=== PATIENT | female | born 1940 | race Caucasian/White ===

== ENCOUNTER → 2018-09-24 16:07 | Outpatient (CLI) | payer OTHER, SELFPAY ==
--- NOTE | 2018-09-24 | DI.RAD.S_ITS ---
PROCEDURE: XR HIP W PEL IF DONE RT 2V INDICATIONS: LUMBOSACRAL PAIN RIGHT HIP PAIN TECHNIQUE: AP pelvis with lateral view(s) of the right hip(s). COMPARISON: [facility], , [id number] W PEL IF PERFORMED, 04/26/2017, 11:42. FINDINGS: Bones: No fractures or dislocations. Pelvic ring appears intact. No suspicious bony lesions. There is mild bilateral hip joint space narrowing. Soft tissues: The visualized bowel gas pattern is normal. No suspicious soft tissue calcifications. Dense atheromatous calcifications are present within the iliac arteries. IMPRESSION: 1. Mild bilateral hip osteoarthritis. 2. Arterial atherosclerosis. Dictated by: Delilah Garcia M.D. on 09/24/2018 at 16:51 Approved by: Delilah Garcia M.D. on 09/24/2018 at 16:53
--- NOTE | 2018-09-24 | DI.RAD.S_ITS ---
PROCEDURE: XR LUMBAR SPINE 2-3V INDICATIONS: LUMBOSACRAL PAIN/RIGHT HIP PAIN TECHNIQUE: 3 views of the lumbar spine were acquired. COMPARISON: [facility], , -SPINE 2-3 VIEWS, 03/30/2011, 16:04. FINDINGS: Bones: 5 [id number] vertebrae are present. There is loss of the expected lumbar lordosis. No spondylolisthesis. No wedge compression deformities. Moderate to severe degenerative changes present within the mid and lower lumbar spine including intervertebral disc space narrowing, endplate sclerosis, osteophytosis, and facet sclerosis. Soft tissues: Overlying bowel gas pattern is normal. Dense atheromatous calcifications are present within the abdominal aorta and iliac arteries. IMPRESSION: 1. Moderate to severe degenerative change of the lumbar spine. 2. Arterial atherosclerosis. Dictated by: Delilah Garcia M.D. on 09/24/2018 at 16:53 Approved by: Deillah Garcia M.D. on 09/24/2018 at 16:54
== END ==
PROVIDERS: Family Provider Family Medicine; PCP Family Medicine; Visit Provider Family Medicine
DX: M25.551 Pain in right hip (principal); M54.5 Low back pain; M16.0 Bilateral primary osteoarthritis of hip; M47.816 Spondylosis without myelopathy or radiculopathy, lumbar region; I70.8 Atherosclerosis of other arteries; I70.0 Atherosclerosis of aorta
CPT/HCPCS: 72100; 73502

== ENCOUNTER → 2018-11-15 14:42 | Outpatient (CLI) | payer OTHER, SELFPAY ==
--- NOTE | 2018-11-15 | DI.CT.S_ITS ---
PROCEDURE: CT LUMBAR SPINE WO CON INDICATIONS: Lumbar spine pain TECHNIQUE: Noncontrast 3 mm thick sections acquired from the T12 level to the sacrum. Sagittal and coronal reformats were constructed. For radiation dose reduction, the following was used: automated exposure control. COMPARISON: [facility], CR, XR LUMBAR SPINE 2-3V, 09/24/2018, 16:25. [facility], MR, LUMBAR SPINE W/O CONTRAST, 06/09/2014, 14:51. FINDINGS: Image quality: Excellent. Bones: There is mildly dextroscoliotic bony alignment centered at the L3-L4 level of the lumbosacral spine, slightly more prominent than seen on plain film and MR scanning from. No acute vertebral body compression fractures. No suspicious lytic or blastic bony lesions. Central spinal caliber is of normal overall caliber. No pars defects. T12-L1: Mild degenerative disc height reduction, no disc bulge or herniation suspected. L1-L2: Mild/moderate degenerative discogenic reduction without visualized disc bulge or herniation. A small inferior endplate Schmorl's node at L1 was previously present on MR scanning and showed no inflammatory associated change at that time (May L2-L3: Moderately severe degenerative disc disease with significant disc height reduction but no visualized disc herniation. There is a slight posterior disc bulge that is broad based, contributing to presence of mild to moderate spinal stenosis at this level as has been previously the case. L3-L4: The degenerative disc disease at this level is little if any change from the prior MR scan, but grade 1 anterolisthesis does appear slightly worsened at L3-4 associated with worsening facet osteoarthritis bilaterally at the corresponding facet joints. Ligamentous laxity as the presumed underlying cause of this subluxation and there is a moderately severe degree of spinal stenosis as a result.. L4-L5: Moderately severe to severe degenerative disc disease as was previously the case with essentially [id number] articulation. No subluxation, however. Facet osteoarthritis appears to moderately severe bilaterally slightly greater on the left than the right. L5-S1: The degenerative disc disease at this level is near severe, facet osteoarthritis appears moderately severe. No definite spinal or foraminal stenosis, however. Soft tissues: No retroperitoneal masses or hematomas. Visualized aorta is normal in caliber. IMPRESSION: With reference to the prior lumbosacral spine MR imaging from May of 2014 there has been a mild degree of interval worsening of degenerative disc disease best seen at L3-4 where disc height reduction and worsening facet osteoarthritis allows a greater degree of grade one anterolisthesis of L3 on L4. No intervening compression fracture has developed. A disc herniation is not suspected by this study. There is a moderately severe degree of spinal stenosis at L3-4. Foraminal stenosis is present along the lower half of the LS-spine, most prominent at L3-4 and moderate in severity more inferiorly. Dictated by: Hung Gunderson M.D. on 11/15/2018 at 15:46 Approved by: Hung Gunderson M.D. on 11/15/2018 at 15:54
== END ==
PROVIDERS: Family Provider Family Medicine; PCP Family Medicine; Visit Provider Physical Medicine & Rehabilitation Pain Medicine
DX: M54.5 Low back pain (principal); M51.36 Other intervertebral disc degeneration, lumbar region; M51.37 Other intervertebral disc degeneration, lumbosacral region; M48.061 Spinal stenosis, lumbar region without neurogenic claudication; M47.817 Spondylosis without myelopathy or radiculopathy, lumbosacral region; M47.816 Spondylosis without myelopathy or radiculopathy, lumbar region; M43.16 Spondylolisthesis, lumbar region
CPT/HCPCS: 72131

== ENCOUNTER 2019-07-27 17:27 | Emergency (ER) | payer OTHER, SELFPAY ==
[2019-07-27 17:50] VITALS: BP 160/69; PULSE 84; RESP 18; TEMP 36.7; O2SAT 98
--- NOTE | 2019-07-27 18:27 | ED_ITS ---
HPI - Abdominal Pain General Chief Complaint: Abdominal Pain Stated Complaint: blood in stool Time Seen by Provider: 07/27/19 18:25 Source: patient Mode of arrival: Wheelchair Limitations: no limitations History of Present Illness HPI narrative: This is a 79-year-old female who comes to the emergency department with complaint of abdominal pain, vomiting and melanotic but also bright red blood in her stool starting today. Patient states around noon she started vomiting. She is complaining of lower abdominal pain on both sides. She states she has some chronic back pain which has not changed or new. And that she has been having black tarry stools with occasional bright red blood. She states she she feels fatigued and chilled. She denies fevers. She denies any chest pain or shortness of breath. she has had a mild cough. She denies any swelling in her lower extremities. She does take Plavix, blood pressure and dyslipidemia medication. Patient does have a pacemaker. She does smoke half pack daily but denies any alcohol. No illicit. She has had hysterectomy and bilateral oophorectomy and states that there were complications initially with hysterectomy leading to the oophorectomy. She states that she has had swelling in her bowel before and describes what sounds like a partial bowel obstruction and been hospitalized in the past [address] Lane is her PCP. She is accompanied by her daughter. Related Data Home Medications Medication Instructions Recorded Confirmed BUPROPION HCL (BUDEPRION SR OFF 150 mg PO BID #0 07/21/11 MARKET) Cyproheptadine Hydrochloride 4 mg PO QID #0 07/21/11 (#PERIACTIN) gabapentin [Neurontin] 2 cap PO QID #0 07/23/11 lorazepam [Ativan] 1 mg PO TID #0 07/23/11 Lisinopril/HCTZ (PRINZIDE 06/21.5) 1 tab PO QDAY #0 tab 05/29/13 atorvastatin [Lipitor] 80 mg PO HS #0 tab 05/29/13 potassium chloride [Klor-Con 8] 8 meq PO QDAY #0 tab 05/29/13 Previous Rx's Medication Instructions Recorded metronidazole [Flagyl] 500 mg PO TID #30 tab 07/27/19 Allergies Allergy/AdvReac Type Severity Reaction Status Date / Time latex [LATEX] Allergy Mild Unverified 12/19/17 13:01 amoxicillin [AMOXICILLIN] Allergy Unknown Unverified 12/19/17 13:01 levofloxacin [LEVOFLOXACIN] Allergy Unknown Unverified 12/19/17 13:01 Review of Systems Review of Systems ROS Unobtainable: All systems reviewed & are unremarkable except as noted in HPI and below Constitutional Constitutional: Reports chills, Reports fatigue, Denies fever(s), Denies lethargy and Denies weakness Cardiovascular Cardiovascular: Denies chest pain, Denies irregular heart rhythm, Denies lightheadedness, Denies palpitations, Denies dyspnea, Denies dyspnea on exertion and Denies orthopnea Respiratory Respiratory: Denies change in phlegm color, Denies chest congestion, Reports cough, Denies dyspnea, Denies dyspnea on exertion and Denies wheezing Gastrointestinal Gastrointestinal: Reports abdominal pain, Reports melena, Reports hematochezia, Denies change in bowel habits, Denies constipation, Reports cramping, Denies diarrhea, Reports nausea and Reports vomiting Genitourinary Genitourinary: Denies hematuria, Denies urinary frequency, Denies dysuria, Denies flank pain, Denies urinary incontinence and Denies urinary urgency Musculoskeletal Musculoskeletal: Reports back pain (chronic, no new change.) Neurologic Neurologic: Denies weakness Endocrine Endocrine: Reports fatigue and Denies palpitations Allergic/Immunologic Allergic/Immunologic: Denies wheezing Patient History Medical History Pacemaker (Acute) Surgical History (Updated 07/27/19 @ 19:12 by Aimee Cooley DO) H/O: hysterectomy (Acute) History of bilateral oophorectomies (Acute) Social History (Updated 07/27/19 @ 19:12 by Aimee Cooley DO) Smoking Status: Current every day smoker alcohol intake: never substance use type: does not use tobacco type: cigarettes Exam Narrative Exam Narrative: GENERAL: Alert and oriented x three, thin elderly female in mild distress HEENT: Head normocephalic, atraumatic, EOMI, pupils reactive, face symmetric, mild nasal congestion, moist mucous membranes NECK: Supple, full range of motion CARDIOVASCULAR: Regular rate and rhythm without murmurs, rubs or gallops. RESPIRATORY: Breath sounds equal bilaterally, no wheezes rales or rhonchi. No tachypnea, no accessory muscle use. Patient does have a dry cough. ABDOMEN: Soft, mild bilateral lower quadrant tenderness. Normoactive bowel sounds all 4 quadrants. No guarding or rebound, rigidity, no mass : No CVA tenderness EXTREMITIES: Normal range of motion, no clubbing or edema. Neurovascularly intact NEUROLOGICAL: Cranial nerves II through XII grossly intact. Moving all extremities SKIN: Warm, dry, no petechiae, no rashes or lesions. Initial Vital Signs Initial Vital Signs: Vital Signs Temperature 98.0 F 07/27/19 17:50 Pulse Rate 84 07/27/19 17:50 Respiratory Rate 18 07/27/19 17:50 Blood Pressure 160/69 H 07/27/19 17:50 Pulse Oximetry 98 07/27/19 17:50 Course Orders Ordered: ED Orders 07/27/19 18:18 Complete Blood Count AUTO DIFF Stat Comprehensive Metabolic Panel Stat Lipase Stat Partial Thromboplastin Time Stat Prothrombin Time INR Stat 07/27/19 19:06 CT abdomen pelvis w con Stat 07/27/19 19:57 Lactate (Lactic Acid) Stat 07/27/19 20:48 Blood Culture Stat Discontinued Medications Sodium Chloride (Normal Saline 0.9%) 1,000 mls @ 1,000 mls/hr IV BOLUS ONE Stop: 07/27/19 20:05 Last Admin: 07/27/19 19:13 Dose: 1,000 mls/hr Documented by: ELDA Metronidazole (Metronidazole) 500 mg PO NOW ONE Stop: 07/27/19 20:40 Last Admin: 07/27/19 20:52 Dose: 500 mg Documented by: ADRIENNE Morphine Sulfate (Morphine) 2 mg IV NOW ONE Stop: 07/27/19 19:07 Last Admin: 07/27/19 19:12 Dose: 2 mg Documented by: ELDA Ondansetron HCl (Zofran) 4 mg IV NOW ONE Stop: 07/27/19 19:07 Last Admin: 07/27/19 19:12 Dose: 4 mg Documented by: ELDA Ondansetron HCl (Zofran Odt Prepack) 1 bottle MISC SEEINSTR ONE Stop: 07/27/19 20:51 Vital Signs Vital signs: Vital Signs - 8 hr 07/27/19 17:50 07/27/19 20:20 07/27/19 21:55 Temperature 98.0 F Pulse Rate 84 79 78 Respiratory Rate 18 14 Blood Pressure 160/69 H 180/84 H Blood Pressure [Right Arm] 178/85 H Pulse Oximetry 98 98 97 MDM - Abdominal Pain Lab Data Attestation: I reviewed the patient's lab results. Result diagrams: 07/27/19 18:18 07/27/19 18:18 Labs: Lab Results 07/27/19 07/27/19 07/27/19 Range/Units 18:18 18:18 18:18 WBC 16.6 H (4.5-11.0) X10^3/uL RBC 5.13 (4.0-5.2) X10^6/uL Hgb 16.3 H (12.0-16.0) g/dL Hct 47.8 H (36-46) % MCV 93.2 (80-100) fL MCH 31.9 (26-34) PG MCHC 34.2 (30-36) % RDW 14.6 (11.6-14.8) % Plt Count 219 (150-400) X10^3/uL Neut % (Auto) 88.2 H (50-75) % Lymph % (Auto) 6.9 L (25-40) % [place] % (Auto) 3.1 (3-14) % Eos % (Auto) 0.1 L (2-4) % Baso % (Auto) 1.7 (0-2) % Neut # (Auto) 23143 H (5115-3853) /uL Lymph # (Auto) 1100 (9995-6336) /uL [place] # (Auto) 500 (0-900) /uL Eos # (Auto) 0 (0-450) /uL Baso # (Auto) 300 H (0-100) /uL PT 10.3 (10.1-12.7) SECONDS INR 0.9 (0.9-1.3) APTT (26.4-36.2) SECONDS Sodium 140 (137-145) mmol/L Potassium 4.2 (3.4-5.1) mmol/L Chloride 102 (98-107) mmol/L Carbon Dioxide 29 (22-32) mmol/L BUN 36 H (7-17) mg/dL Creatinine 1.20 H (0.52-1.04) mg/dL Estimated GFR 43.6 L (>60) mL/min BUN/Creatinine Ratio 30.0 H (6-22) Glucose 128 H (80-110) mg/dL Lactate (0.7-2.1) mmol/L Calcium 10.5 H (8.4-10.2) mg/dL Total Bilirubin 0.7 (0.2-1.3) mg/dL AST 39 H (14-36) IU/L ALT 17 (<35) IU/L Alkaline Phosphatase 126 (38-126) U/L Total Protein 7.9 (6.3-8.2) g/dL Albumin 4.6 (3.5-5.0) g/dL Globulin 3.3 (1.7-4.1) g/dL Albumin/Globulin Ratio 1.4 (1.0-2.8) Lipase (23-300) U/L 07/27/19 07/27/19 07/27/19 Range/Units 18:18 18:18 19:57 WBC (4.5-11.0) X10^3/uL RBC (4.0-5.2) X10^6/uL Hgb (12.0-16.0) g/dL Hct (36-46) % MCV (80-100) fL MCH (26-34) PG MCHC (30-36) % RDW (11.6-14.8) % Plt Count (150-400) X10^3/uL Neut % (Auto) (50-75) % Lymph % (Auto) (25-40) % [place] % (Auto) (3-14) % Eos % (Auto) (2-4) % Baso % (Auto) (0-2) % Neut # (Auto) (1602-9679) /uL Lymph # (Auto) (6339-8589) /uL [place] # (Auto) (0-900) /uL Eos # (Auto) (0-450) /uL Baso # (Auto) (0-100) /uL PT (10.1-12.7) SECONDS INR (0.9-1.3) APTT 30 (26.4-36.2) SECONDS Sodium (137-145) mmol/L Potassium (3.4-5.1) mmol/L Chloride (98-107) mmol/L Carbon Dioxide (22-32) mmol/L BUN (7-17) mg/dL Creatinine (0.52-1.04) mg/dL Estimated GFR (>60) mL/min BUN/Creatinine Ratio (6-22) Glucose (80-110) mg/dL Lactate 1.1 (0.7-2.1) mmol/L Calcium (8.4-10.2) mg/dL Total Bilirubin (0.2-1.3) mg/dL AST (14-36) IU/L ALT (<35) IU/L Alkaline Phosphatase (38-126) U/L Total Protein (6.3-8.2) g/dL Albumin (3.5-5.0) g/dL Globulin (1.7-4.1) g/dL Albumin/Globulin Ratio (1.0-2.8) Lipase 113 (23-300) U/L Point of care testing: Point of Care Testing Stool Occult Blood Positive Imaging Data CT scan - abdomen: Radiologist's impression: [address] [address] [address] Scan Report Signed Patient: Apple Juarez KMR#: [id number] : 2Acct:[id number] Age/Sex: 79 / FDate of Service: 07/27/19 Loc: ED Accession Number: [id number] Procedure: CT abdomen pelvis w con Ordering Provider: Aimee Cooley D.O. PROCEDURE: CT ABDOMEN PELVIS W CON INDICATIONS: lower abdominal pain, melena/brb, vomiting, hx obstruction TECHNIQUE: After the administration of intravenous contrast, 5 mm thick sections acquired from the diaphragm to the symphysis. 5 mm coronal and sagittal reformats were acquired. For radiation dose reduction, the following was used: automated exposure control, adjustment of mA and/or kV according to patient size. COMPARISON: [facility], CT, ABDOMEN/PELVIS WITH CONTRAST, 10/24/2015, 6:56. FINDINGS: Image quality: Excellent. ABDOMEN: Lung bases: Emphysematous changes at both lung bases.. Heart size is normal. Pacemaker lead in place. Solid organs: Liver is normal in size and enhancement. Gallbladder is mildly distended but no stones are seen. Biliary system is non dilated. Pancreas enhances normally. Spleen is normal in size and enhancement. Mild, stable left adrenal gland thickening. No adrenal nodules. Kidneys demonstrate normal size and enhancement, without hydronephrosis. Peritoneum and bowel: Marked circumferential wall thickening and edema involving the entire colon and including mild pericolonic inflammatory changes from the splenic flexure through the descending colon. There is mucosal hyperemia of the sigmoid and rectum. No evidence of perforation or abscess formation. Trace amount of free fluid is present in the left paracolic gutter and in the pelvis. Small bowel loops and stomach appear normal. Nodes and vessels: No retroperitoneal or mesenteric adenopathy by size criteria. Aorta and inferior vena cava are normal in size. Heavy abdominal aortic atherosclerosis with mild mid aorta ectasia measuring up to 2.6 cm in greatest evident. Miscellaneous: No ventral hernias. PELVIS: Genitourinary: Bladder wall thickness is mildly diffusely increased, likely reactive. Uterus is surgically absent. Miscellaneous: No inguinal hernias or adenopathy. Heavy pelvic artery calcif ication. Bones: No suspicious bony lesions. No vertebral body compression fractures. IMPRESSION: 1. Moderate diffuse colitis, most extensive in the descending colon. Wall thickening raises the possibility of Clostridium difficile, however other infectious or inflammatory etiologies should also be considered. 2. No evidence of perforation or abscess formation. 3. Atherosclerosis. 4. Emphysema. Dictated by: Lilo Collins M.D. on 07/27/2019 at 19:46 Approved by: Lilo Collins M.D. on 07/27/2019 at 19:54 MDM Narrative Medical decision making narrative: Spoke with patient does have white count 16, her hemoglobin is 16.3 which is elevated she does smoke. Her hemoglobin of 10 in October 2015 she thought that maybe she had had a blood transfusion at some point but was unsure. Patient does have a left shift. Platelets are normal. coags do not show major abnormalities, creatinine is elevated but appears at baseline with her prior from 2016. BUN is elevated fitting with bright red blood from her stool. Glucose is 128 with calcium at 10.5 and a slightly elevated AST. Other LFTs are normal with a normal lactate of 1.1. Blood cultures were obtained CT imaging shows thickening of the colon consistent with a colitis. Um she most extensively in the descending colon which fits with having some melena as well as bright red blood. They do mention the possibility of C diff although patient is not high risk at this time. I discussed with Dr. Perez who is on-call patient's primary care Dr. Lane. Patient is open to returning home. We discussed starting antibiotics patient has not been able to give a stool sample in the department and sending her with a outpatient prescription to give one and follow up tomorrow with the office. Patient is to return any time if she has worsening for hospitalization. She has had stable vitals with slightly elevated blood pressure, no tachycardia. Patient was able to tolerate oral flagyl in the department. She was given a Zofran prepack and strict return precautions. Patient feels comfortable with the plan she feels more comfortable being at home at this time and she understands the plan for follow-up tomorrow. She was also given a prescription as well as collection device for a stool sample. All questions were answered. Patient able to ambulate in the department with out issue. Patient is hypertensive with no tachycardia. Discharge Plan Departure Patient Disposition: Home Clinical Impression: Colitis Discharge Date/Time: 07/27/19 21:55 Instructions: DI for Colitis Activity Restrictions/Additional Instructions: Follow up with your physician for recheck and to give a stool sample to check for infectious causes of your colitis. Take antibiotics until gone. Continue home medications as prescribed. Discuss with your physician about whether you should take your plavix. Return to the ER for fevers greater than 100.4F, lightheadedness, passing out, persistent vomiting or unable to keep your antibiotics down, increasing bloody stools, increasing abdominal pain or other new or concerning symptoms. Prescriptions: New metronidazole [Flagyl] 500 mg tablet 500 mg PO TID Qty: 30 RF: 0 No Action BUPROPION HCL (BUDEPRION SR OFF MARKET) 150 mg PO BID Qty: 0 RF: 0 Cyproheptadine Hydrochloride (#PERIACTIN) 4 mg PO QID Qty: 0 RF: 0 lorazepam [Ativan] 1 MG tablet 1 mg PO TID Qty: 0 RF: 0 gabapentin [Neurontin] 300 MG capsule 2 cap PO QID Qty: 0 RF: 0 potassium chloride [Klor-Con 8] 8 MEQ tablet extended release 8 meq PO QDAY Qty: 0 RF: 0 atorvastatin [Lipitor] 80 MG tablet 80 mg PO HS Qty: 0 RF: 0 Lisinopril/HCTZ (PRINZIDE 10/12.5) 1 tab PO QDAY Qty: 0 RF: 0 Referrals: Judah Lane MD [Primary Care Provider] -
[2019-07-27 18:36] LABS: Alanine Aminotransferase 17 IU/L (<35); Albumin 4.6 g/dL (3.5-5.0); Albumin Globulin Ratio 1.4 (1.0-2.8); Alkaline Phosphatase 126 U/L (38-126); Aspartate Aminotransferase 39 IU/L (14-36); Bilirubin Total 0.7 mg/dL (0.2-1.3); Blood Urea Nitrogen 36 mg/dL (7-17); Calcium 10.5 mg/dL (8.4-10.2); Carbon Dioxide 29 mmol/L (22-32); Chloride 102 mmol/L (98-107); Estimated Glomerular Filt Rate 43.6 mL/min (>60); Globulin 3.3 g/dL (1.7-4.1); Glucose 128 mg/dL (80-110); Sodium 140 mmol/L (137-145); Total Protein 7.9 g/dL (6.3-8.2)
[2019-07-27 18:38] LABS: HEMOLYSIS 69 (0-50); Potassium 4.2 mmol/L (3.4-5.1)
[2019-07-27 18:42] LABS: Add Manual Diff / Slide Review NO; Basophils Absolute Auto 300 /uL (0-100); Basophils Percent Auto 1.7 % (0-2); Eosinophils Absolute Auto 0 /uL (0-450); Eosinophils Percent Auto 0.1 % (2-4); Hematocrit 47.8 % (36-46); Hemoglobin 16.3 g/dL (12.0-16.0); Lymphocytes Absolute Auto 1100 /uL (1100-4500); Lymphocytes Percent Auto 6.9 % (25-40); Mean Corpuscular HGB Conc 34.2 % (30-36); Mean Corpuscular Hemoglobin 31.9 PG (26-34); Mean Corpuscular Volume 93.2 fL (80-100); Monocytes Absolute Auto 500 /uL (0-900); Monocytes Percent Auto 3.1 % (3-14); Neutrophils Absolute Auto 14600 /uL (1500-7000); Neutrophils Percent Auto 88.2 % (50-75); Platelet Count 219 X10^3/uL (150-400); Red Blood Cell Count 5.13 X10^6/uL (4.0-5.2); Red Cell Distribution Width 14.6 % (11.6-14.8); White Blood Cell Count 16.6 X10^3/uL (4.5-11.0)
[2019-07-27 18:43] LABS: INR 0.9 (0.9-1.3); Prothrombin Time 10.3 SECONDS (10.1-12.7)
[2019-07-27 18:46] LABS: Lipase 113 U/L (23-300)
[2019-07-27 18:50] LABS: PTT Partial Thromboplastin Tim 30 SECONDS (26.4-36.2)
--- NOTE | 2019-07-27 19:06 | DI.CT.S_ITS ---
PROCEDURE: CT ABDOMEN PELVIS W CON INDICATIONS: lower abdominal pain, melena/brb, vomiting, hx obstruction TECHNIQUE: After the administration of intravenous contrast, 5 mm thick sections acquired from the diaphragm to the symphysis. 5 mm coronal and sagittal reformats were acquired. For radiation dose reduction, the following was used: automated exposure control, adjustment of mA and/or kV according to patient size. COMPARISON: [facility], CT, ABDOMEN/PELVIS WITH CONTRAST, 10/24/2015, 6:56. FINDINGS: Image quality: Excellent. ABDOMEN: Lung bases: Emphysematous changes at both lung bases.. Heart size is normal. Pacemaker lead in place. Solid organs: Liver is normal in size and enhancement. Gallbladder is mildly distended but no stones are seen. Biliary system is non dilated. Pancreas enhances normally. Spleen is normal in size and enhancement. Mild, stable left adrenal gland thickening. No adrenal nodules. Kidneys demonstrate normal size and enhancement, without hydronephrosis. Peritoneum and bowel: Marked circumferential wall thickening and edema involving the entire colon and including mild pericolonic inflammatory changes from the splenic flexure through the descending colon. There is mucosal hyperemia of the sigmoid and rectum. No evidence of perforation or abscess formation. Trace amount of free fluid is present in the left paracolic gutter and in the pelvis. Small bowel loops and stomach appear normal. Nodes and vessels: No retroperitoneal or mesenteric adenopathy by size criteria. Aorta and inferior vena cava are normal in size. Heavy abdominal aortic atherosclerosis with mild mid aorta ectasia measuring up to 2.6 cm in greatest evident. Miscellaneous: No ventral hernias. PELVIS: Genitourinary: Bladder wall thickness is mildly diffusely increased, likely reactive. Uterus is surgically absent. Miscellaneous: No inguinal hernias or adenopathy. Heavy pelvic artery calcification. Bones: No suspicious bony lesions. No vertebral body compression fractures. IMPRESSION: 1. Moderate diffuse colitis, most extensive in the descending colon. Wall thickening raises the possibility of Clostridium difficile, however other infectious or inflammatory etiologies should also be considered. 2. No evidence of perforation or abscess formation. 3. Atherosclerosis. 4. Emphysema. Dictated by: Lilo Collins M.D. on 07/27/2019 at 19:46 Approved by: Lilo Collins M.D. on 07/27/2019 at 19:54
[2019-07-27] MEDS: MORPHINE 2 MG/ML INJ IV (19:12)
[2019-07-27] MEDS: ONDANSETRON 4 MG/2 ML INJ IV (19:12)
[2019-07-27] MEDS: SODIUM CHLORIDE 0.9% 1,000 ML 1000 ML IV (19:13)
[2019-07-27 20:18] LABS: Lactate (Lactic Acid) 1.1 mmol/L (0.7-2.1)
[2019-07-27 20:20] VITALS: BP 178/85; PULSE 79; O2SAT 98
[2019-07-27] MEDS: metroNIDAZOLE 250 MG TABLET 500 MG PO (20:52)
[2019-07-27 21:55] VITALS: BP 180/84; PULSE 78; RESP 14; O2SAT 97
--- NOTE | 2019-08-06 11:39 | PC.NURSE ---
late entry Pt had a bolus of NS started at 1930. Bolus of 1000 mL completed at 2012.
== END 2019-07-27 21:55 | disposition home or self-care (01) ==
PROVIDERS: Emergency Medicine; Emergency Provider Emergency Medicine; Family Provider Family Medicine; PCP Family Medicine
DX: K52.9 Noninfective gastroenteritis and colitis, unspecified (principal); K92.1 Melena; R11.2 Nausea with vomiting, unspecified; I10 Essential (primary) hypertension; R10.30 Lower abdominal pain, unspecified; Z95.0 Presence of cardiac pacemaker
CPT/HCPCS: 36415; 74177; 80053; 82272; 83605; 83690; 85025; 85610; 85730; 87040; 96361; 96374; 96375; 99282; 99284; J2270; J2405; Q9967

== ENCOUNTER → 2019-07-30 14:30 | Outpatient (CLI) | payer OTHER, SELFPAY | PROVIDERS: PCP Family Medicine; Visit Provider Emergency Medicine | DX: K92.1 Melena (principal) ==

== ENCOUNTER → 2019-08-06 09:37 | Outpatient (CLI) | payer OTHER, SELFPAY | PROVIDERS: PCP Family Medicine; Visit Provider Emergency Medicine | DX: Z00.00 Encounter for general adult medical examination without abnormal findings (principal) | CPT/HCPCS: 87507 ==

== ENCOUNTER → 2020-02-04 15:56 | Outpatient (CLI) | payer OTHER, SELFPAY ==
--- NOTE | 2020-02-04 16:03 | DI.RAD.S_ITS ---
PROCEDURE: XR CERVICAL SPINE 2V OR 3V INDICATIONS: NECK PAIN TECHNIQUE: 4 view(s) of the cervical spine were acquired. COMPARISON: [facility], CR, CLAVICLE LEFT 2 VIEWS, 09/19/2007, 9:12. FINDINGS: Bones: No fractures or dislocations to the C7-T1 level. There is straightening of normal cervical lordosis. Degenerative disc disease throughout cervical spine is seen. Minimal anterolisthesis of C5 on C6 and C6 on C7 is seen. The lateral masses of C1 appear intact on the odontoid view. No suspicious bony lesions. Soft tissues: No prevertebral soft tissue swelling. IMPRESSION: Degenerative disc disease throughout cervical spine. No acute fracture or dislocation. Dictated by: Minh Neely M.D. on 02/04/2020 at 17:42 Approved by: Minh Neely M.D. on 02/04/2020 at 17:42
== END ==
PROVIDERS: PCP Family Medicine; Referring Provider Family Medicine; Visit Provider Family Medicine
DX: M50.30 Other cervical disc degeneration, unspecified cervical region (principal)
CPT/HCPCS: 72040

== ENCOUNTER 2020-10-13 16:11 | Emergency (ER) | payer OTHER, SELFPAY ==
[2020-10-13] VITALS (7 sets, daily range): BP systolic 133–138; BP diastolic 57–63; PULSE 60–80; RESP 20–41; TEMP 36.3; O2SAT 95–99
--- NOTE | 2020-10-13 16:33 | DI.RAD.S_ITS ---
PROCEDURE: XR CHEST 1V INDICATIONS: syncope TECHNIQUE: One view of the chest was acquired. COMPARISON: [facility], , CHEST 1 VIEW, 09/07/2015, 16:19. FINDINGS: Surgical changes and devices: There is a cardiac pacemaker in appropriate position. Lungs and pleura: Hyperinflation consistent with COPD. Lungs are clear. No pleural effusions or pneumothorax. Mediastinum: Mediastinal contours appear normal. Heart size is normal. Bones and chest wall: No suspicious bony lesions. Overlying soft tissues appear unremarkable. IMPRESSION: 1. No acute cardiopulmonary disease. 2. COPD. Dictated by: Yaritza Ambrocio M.D. on 10/13/2020 at 17:14 Approved by: Yaritza Ambrocio M.D. on 10/13/2020 at 17:15
--- NOTE | 2020-10-13 16:33 | DI.CT.S_ITS ---
PROCEDURE: CT CERVICAL SPINE WO CON INDICATIONS: fall TECHNIQUE: Noncontrast 3 mm thick sections acquired from the skull base to the T4 level. Sagittal and coronal reformats were then constructed. For radiation dose reduction, the following was used: automated exposure control, adjustment of mA and/or kV according to patient size. COMPARISON: None. FINDINGS: Image quality: Excellent. Bones: No fractures or dislocations. Visualized superior ribs are intact. Cervical spine degenerative changes are seen, including moderate to severe disc space narrowing at C5-C6, C6-C7, and C7-T1. Focal degenerative change is seen involving the C1-C2 interface anteriorly. Milder degenerative changes are seen elsewhere. Soft tissues: There is an irregular cystic and solid lesion seen involving the right upper lobe, as on series 2, image 62 that measures 3.5 cm. Mild layering dependent ground-glass opacity can be seen. There is presumed prior left hemithyroidectomy Prevertebral soft tissues are normal in thickness. No paravertebral hematomas. No apical pneumothoraces. Atherosclerotic calcification is noted. A pacer device is seen. IMPRESSION: No cervical spine fracture can be seen. Cervical spine degenerative changes are seen, which are worst inferiorly. Incidental note is made of a 3.5 cm cystic and solid mass involving the right upper lobe. A dedicated chest CT with IV contrast is recommended for further evaluation, when clinically appropriate. Dependently layering ground-glass opacity can be seen within the lungs, which is most suspicious for pulmonary edema. Please correlate with known patient history. Incidental note is made of: Presumed left prior hemithyroidectomy Pacer device Atherosclerotic calcification Note: Findings and recommendations discussed by telephone with Dr. Jaramillo at 4:28 p.m. [place] time on October 13, 2020. Dictated by: Armand Rosenberg M.D. on 10/13/2020 at 16:26 Approved by: Armand Rosenberg M.D. on 10/13/2020 at 16:30
--- NOTE | 2020-10-13 16:33 | DI.CT.S_ITS ---
PROCEDURE: CT HEAD/BRAIN WO CON INDICATIONS: fall TECHNIQUE: Noncontrast 4.5 mm thick angled axial sections acquired from the foramen magnum to the vertex, with coronal and sagittal reformats. For radiation dose reduction, the following was used: automated exposure control, adjustment of mA and/or kV according to patient size. COMPARISON: Located Within [facility], CT, HEAD WITHOUT CONTRAST, 10/24/2010, 13:19. Located Within [facility], CT, HEAD WITHOUT CONTRAST, 07/23/2011, 12:27. Located Within [facility], CT, CT CERVICAL SPINE WO CON, 10/13/2020, 16:57. Located Within [facility], CT, HEAD WITHOUT CONTRAST, 09/07/2015, 18:19. FINDINGS: Image quality: Excellent. CSF spaces: Basal cisterns are patent. No extra-axial fluid collections. The ventricles are symmetric in size and shape. Brain: No intracranial bleeds or masses. There is cerebral volume loss for age, with resultant ventricular and sulcal prominence. There are periventricular and deep white matter chronic small vessel ischemic changes. There is intracranial internal carotid artery atherosclerosis. Skull and face: Calvarium and visualized facial bones appear intact, without suspicious lesions. Sinuses: Visualized sinuses and mastoids are clear. IMPRESSION: No acute intracranial hemorrhage is seen. No acute intracranial process is seen. Dictated by: Armand Rosenberg M.D. on 10/13/2020 at 16:24 Approved by: Armand Rosenberg M.D. on 10/13/2020 at 16:25
[2020-10-13 16:47] LABS: Add Manual Diff / Slide Review NO; Basophils Absolute Auto 100 /uL (0-100); Basophils Percent Auto 1.3 % (0-2); Eosinophils Absolute Auto 300 /uL (0-450); Eosinophils Percent Auto 2.9 % (2-4); Hematocrit 40.4 % (36-46); Hemoglobin 13.7 g/dL (12.0-16.0); Lymphocytes Absolute Auto 2400 /uL (1100-4500); Lymphocytes Percent Auto 26.3 % (25-40); Mean Corpuscular HGB Conc 33.9 % (30-36); Mean Corpuscular Hemoglobin 31.6 PG (26-34); Mean Corpuscular Volume 93.2 fL (80-100); Monocytes Absolute Auto 700 /uL (0-900); Monocytes Percent Auto 8.1 % (3-14); Neutrophils Absolute Auto 5600 /uL (1500-7000); Neutrophils Percent Auto 61.4 % (50-75); Platelet Count 187 X10^3/uL (150-400); Red Blood Cell Count 4.34 X10^6/uL (4.0-5.2); Red Cell Distribution Width 14.5 % (11.6-14.8); White Blood Cell Count 9.2 X10^3/uL (4.5-11.0)
[2020-10-13 17:03] LABS: Alanine Aminotransferase 13 IU/L (<35); Albumin 4.1 g/dL (3.5-5.0); Albumin Globulin Ratio 1.3 (1.0-2.8); Alkaline Phosphatase 82 U/L (38-126); Aspartate Aminotransferase 25 IU/L (14-36); BUN Creatinine Ratio 21.7 (6-22); Bilirubin Total 0.4 mg/dL (0.2-1.3); Blood Urea Nitrogen 38 mg/dL (7-17); Calcium 9.4 mg/dL (8.4-10.2); Carbon Dioxide 32 mmol/L (22-32); Chloride 102 mmol/L (98-107); Creatine Kinase 57 U/L (30-135); Estimated Glomerular Filt Rate 28.1 mL/min (>60); Globulin 3.1 g/dL (1.7-4.1); Glucose 97 mg/dL (80-110); HEMOLYSIS < 15 (0-50); Lipase 93 U/L (23-300); Potassium 3.8 mmol/L (3.4-5.1); Sodium 137 mmol/L (137-145); Total Protein 7.2 g/dL (6.3-8.2)
--- NOTE | 2020-10-13 17:14 | ED_ITS ---
HPI - Fall General Chief Complaint: Trauma Stated Complaint: multiple falls today Time Seen by Provider: 10/13/20 16:33 Source: patient Mode of arrival: Wheelchair Limitations: no limitations History of Present Illness HPI Narrative: Patient is a 80-year-old female on Plavix presenting after ground level fall. She said she was getting out of her car using her cane when she got trapped and fell down. He did not hit her head or lose consciousness at that time. She made into her house at which point she felt weak in the knees and fell to the ground again. She denies any chest pain or heart palpitations no dizziness or lightheadedness. Any weakness numbness or tingling. MD complaint: fall Fall from: standing Fall witnessed: no Place fall occurred: home Loss of consciousness: none Related Data Home Medications Medication Instructions Recorded Confirmed BUPROPION HCL (BUDEPRION SR OFF 150 mg PO BID #0 07/21/11 MARKET) Cyproheptadine Hydrochloride 4 mg PO QID #0 07/21/11 (#PERIACTIN) gabapentin [Neurontin] 2 cap PO QID #0 07/23/11 lorazepam [Ativan] 1 mg PO TID #0 07/23/11 Lisinopril/HCTZ (PRINZIDE 06/21.5) 1 tab PO QDAY #0 tab 05/29/13 atorvastatin [Lipitor] 80 mg PO HS #0 tab 05/29/13 potassium chloride [Klor-Con 8] 8 meq PO QDAY #0 tab 05/29/13 Previous Rx's Medication Instructions Recorded metronidazole [Flagyl] 500 mg PO TID #30 tab 07/27/19 Allergies Allergy/AdvReac Type Severity Reaction Status Date / Time latex [LATEX] Allergy Mild Unverified 12/19/17 13:01 amoxicillin [AMOXICILLIN] Allergy Unknown Unverified 12/19/17 13:01 levofloxacin [LEVOFLOXACIN] Allergy Unknown Unverified 12/19/17 13:01 Review of Systems Review of Systems ROS Unobtainable: All systems reviewed & are unremarkable except as noted in HPI and below Constitutional Constitutional: Denies chills, Denies fever(s), Denies lethargy and Denies weakness Eyes Eyes: Denies change in vision, Denies eye discharge, Denies irritation and Denies loss of vision Cardiovascular Cardiovascular: Reports as per HPI, Denies chest pain, Reports lightheadedness, Denies dyspnea and Denies dyspnea on exertion Respiratory Respiratory: Denies cough, Denies dyspnea, Denies dyspnea on exertion and Denies wheezing Gastrointestinal Gastrointestinal: Denies abdominal pain, Denies change in bowel habits, Denies diarrhea, Denies nausea and Denies vomiting Musculoskeletal Musculoskeletal: Denies back pain, Denies myalgias, Denies muscle cramps and De nies muscle weakness Integumentary/Breasts Skin/Breast: Denies pruritus, Denies erythema, Denies rash and Denies wounds Neurologic Neurologic: Reports as per HPI, Denies confusion, Denies loss of vision and Den ies weakness Psychiatric Psychiatric: Denies confusion Allergic/Immunologic Allergic/Immunologic: Denies wheezing Patient History Medical History (Updated 10/13/20 @ 18:55 by Chelsea Jaramillo DO) Pacemaker Surgical History H/O: hysterectomy History of bilateral oophorectomies Social History Smoking Status: Current every day smoker alcohol intake: never substance use type: does not use Smoking Status: Current every day smoker tobacco type: cigarettes Exam Initial Vital Signs Initial Vital Signs: Vital Signs Temperature 97.4 F L 10/13/20 16:18 Pulse Rate 80 10/13/20 16:18 Respiratory Rate 20 10/13/20 16:18 Blood Pressure 133/57 L 10/13/20 16:18 Pulse Oximetry 97 10/13/20 16:18 GENERAL: Alert pleasant 80year-old female and in [no acute] distress. HEENT: Head atraumatic,EOMI, pupils reactive, face symmetric, [moist] mucous membranes CARDIOVASCULAR: Regular rate and rhythm without murmurs, rubs or gallops. RESPIRATORY: Breath sounds equal bilaterally, no wheezes rales or rhonchi. ABDOMEN: Soft, nontender. Normoactive bowel sounds all 4 quadrants. No guarding or rebound. EXTREMITIES: Normal range of motion, no clubbing or edema. Neurovascularly intact NEUROLOGICAL: Alert and oriented x4.Normal gait and speech. Cranial nerves II through XII grossly intact. Preparatory Technician strength equal bilaterally good [id number] SKIN: Warm, dry, no laceration, no petechiae, no rashes or lesions. Scores NIH Stroke Scale Level of Conciousness: Alert, keenly responsive Ask month/age: Answers both questions correctly. Open/close eyes, close hand: Performs both tasks correctly Best gaze horizontal: Normal Visual jones: No visual loss Facial palsy: Normal symetrical movement Left arm drift: No drift for full 10 sec Right arm drift: No drift for full 10 sec Left leg drift: No drift for full 5 sec Right leg drift: No drift for full 5 sec Limb ataxia: Absent Sensory on face/arms/legs: Normal, no sensory loss Best language: No aphasia, normal Dysarthria: Normal Extinction or inattention: No abnormality Total NIH Stroke scale score: 0 Course Orders Ordered: ED Orders 10/13/20 16:33 CT cervical spine wo con Stat CT head/brain wo con Stat XR chest 1V Stat EKG-12 Lead Stat 10/13/20 16:40 Complete Blood Count AUTO DIFF Stat Comprehensive Metabolic Panel Stat Lipase Stat Troponin & CK Cardiac Panel Stat Vital Signs Vital signs: Vital Signs - 8 hr 10/13/20 16:18 10/13/20 16:50 10/13/20 17:11 Temperature 97.4 F L Pulse Rate 80 68 64 Respiratory Rate 20 25 H Blood Pressure 133/57 L Pulse Oximetry 97 97 96 10/13/20 17:30 10/13/20 17:55 10/13/20 18:00 Temperature Pulse Rate 68 60 61 Respiratory Rate 26 H 34 H 32 H Blood Pressure 138/63 Pulse Oximetry 95 98 99 10/13/20 18:30 Temperature Pulse Rate 66 Respiratory Rate 41 H Blood Pressure Pulse Oximetry 98 MDM - Fall Lab Data Attestation: I reviewed the patient's lab results. Result diagrams: 10/13/20 16:40 10/13/20 16:40 Labs: Lab Results 10/13/20 10/13/20 Range/Units 16:40 16:40 WBC 9.2 (4.5-11.0) X10^3/uL RBC 4.34 (4.0-5.2) X10^6/uL Hgb 13.7 (12.0-16.0) g/dL Hct 40.4 (36-46) % MCV 93.2 (80-100) fL MCH 31.6 (26-34) PG MCHC 33.9 (30-36) % RDW 14.5 (11.6-14.8) % Plt Count 187 (150-400) X10^3/uL Neut % (Auto) 61.4 (50-75) % Lymph % (Auto) 26.3 (25-40) % [place] % (Auto) 8.1 (3-14) % Eos % (Auto) 2.9 (2-4) % Baso % (Auto) 1.3 (0-2) % Neut # (Auto) 5600 (9270-1215) /uL Lymph # (Auto) 2400 (9467-8281) /uL [place] # (Auto) 700 (0-900) /uL Eos # (Auto) 300 (0-450) /uL Baso # (Auto) 100 (0-100) /uL Sodium 137 (137-145) mmol/L Potassium 3.8 (3.4-5.1) mmol/L Chloride 102 (98-107) mmol/L Carbon Dioxide 32 (22-32) mmol/L BUN 38 H (7-17) mg/dL Creatinine 1.75 H (0.52-1.04) mg/dL Estimated GFR 28.1 L (>60) mL/min BUN/Creatinine Ratio 21.7 (6-22) Glucose 97 (80-110) mg/dL Calcium 9.4 (8.4-10.2) mg/dL Total Bilirubin 0.4 (0.2-1.3) mg/dL AST 25 (14-36) IU/L ALT 13 (<35) IU/L Alkaline Phosphatase 82 (38-126) U/L Total Creatine Kinase 57 (30-135) U/L CK-MB (CK-2) TNP CK-MB (CK-2) Rel Index TNP Troponin I < 0.012 (0.01-0.034) ng/mL Total Protein 7.2 (6.3-8.2) g/dL Albumin 4.1 (3.5-5.0) g/dL Globulin 3.1 (1.7-4.1) g/dL Albumin/Globulin Ratio 1.3 (1.0-2.8) Lipase 93 (23-300) U/L Imaging Data Chest x-ray: Radiologist's Impression: PROCEDURE: XR CHEST 1V INDICATIONS: syncope TECHNIQUE: One view of the chest was acquired. COMPARISON: [facility], , CHEST 1 VIEW, 09/07/2015, 16:19. FINDINGS: Surgical changes and devices: There is a cardiac pacemaker in appropriate position. Lungs and pleura: Hyperinflation consistent with COPD. Lungs are clear. No pleural effusions or pneumothorax. Mediastinum: Mediastinal contours appear normal. Heart size is normal. Bones and chest wall: No suspicious bony lesions. Overlying soft tissues appear unremarkable. IMPRESSION: 1. No acute cardiopulmonary disease. 2. COPD. CT - cervical spine: Radiologist's Impression: PROCEDURE: CT CERVICAL SPINE WO CON INDICATIONS: fall TECHNIQUE: Noncontrast 3 mm thick sections acquired from the skull base to the T4 level. Sagittal and coronal reformats were then constructed. For radiation dose reduction, the following was used: automated exposure control, adjustment of mA and/or kV according to patient size. COMPARISON: None. FINDINGS: Image quality: Excellent. Bones: No fractures or dislocations. Visualized superior ribs are intact. Cervical spine degenerative changes are seen, including moderate to severe disc space narrowing at C5-C6, C6-C7, and C7-T1. Focal degenerative change is seen involving the C1-C2 interface anteriorly. Milder degenerative changes are seen elsewhere. Soft tissues: There is an irregular cystic and solid lesion seen involving the right upper lobe, as on series 2, image 62 that measures 3.5 cm. Mild layering dependent ground-glass opacity can be seen. There is presumed prior left hemithyroidectomy Prevertebral soft tissues are normal in thickness. No paravertebral hematomas. No apical pneumothoraces. Atherosclerotic calcification is noted. A pacer device is seen. IMPRESSION: No cervical spine fracture can be seen. Cervical spine degenerative changes are seen, which are worst inferiorly. Incidental note is made of a 3.5 cm cystic and solid mass involving the right upper lobe. A dedicated chest CT with IV contrast is recommended for further evaluation, when clinically appropriate. Dependently layering ground-glass opacity can be seen within the lungs, which is most suspicious for pulmonary edema. Please correlate with known patient history. Incidental note is made of: Presumed left prior hemithyroidectomy Pacer device Atherosclerotic calcification Note: Findings and recommendations discussed by telephone with Dr. Jaramillo at 4:28 p.m. [place] time on October 13, 2020. Dictated by: Armand Rosenberg M.D. on 10/13/2020 at 16:26 ECG Data Attestation: I personally reviewed and interpreted this ECG as follows: MDM Narrative Medical decision making narrative: Ambulation trial after head CT and C-spine return with a cane. She was barely able to make it to the door, before she came extremely weak. She says she has a walker at home which she usually uses. She denies any chest pain or shortness of breath. Right apex mass is found on CT of the cervical spine. I have discussed this with both patient and her son. Further workup is needed. Patient is adamant about leaving despite increased weakness. I have discussed with her and her son needing help button. Discharge Plan Departure Patient Disposition: Home Clinical Impression: Fall, Lung mass Instructions: How to Prevent Falls Activity Restrictions/Additional Instructions: *You have been diagnosed with fall. Lung mass *What to do: YOU NEED HELP BUTTON. WALK WITH HER WALKER AT ALL TIMES WHILE AT HOME. You also need to have a follow-up CT scan of your lungs to check the mass found on the right upper lung. Please see your primary care provider about this *Continue to take medications as directed *Follow up with your primary care provider in 2-3 days *Return to ER if you should have falls, confusion, weakness, chest pain [or] any new, worsening or concerning symptoms Prescriptions: No Action BUPROPION HCL (BUDEPRION SR OFF MARKET) 150 mg PO BID Qty: 0 RF: 0 Cyproheptadine Hydrochloride (#PERIACTIN) 4 mg PO QID Qty: 0 RF: 0 lorazepam [Ativan] 1 MG tablet 1 mg PO TID Qty: 0 RF: 0 gabapentin [Neurontin] 300 MG capsule 2 cap PO QID Qty: 0 RF: 0 potassium chloride [Klor-Con 8] 8 MEQ tablet extended release 8 meq PO QDAY Qty: 0 RF: 0 atorvastatin [Lipitor] 80 MG tablet 80 mg PO HS Qty: 0 RF: 0 Lisinopril/HCTZ (PRINZIDE 10/12.5) 1 tab PO QDAY Qty: 0 RF: 0 metronidazole [Flagyl] 500 mg tablet 500 mg PO TID Qty: 30 RF: 0
[2020-10-13 17:15] LABS: Troponin I < 0.012 ng/mL (0.01-0.034)
--- NOTE | 2020-10-13 18:53 | PC.NURSE ---
Pt refusing CT scan. states i refuse to lay here any longer i want to go home states she will call her doctor tomorrow. Advised she needs to followup with a CT scan for the mass found on her lung. Dr Barkley at bedside to talk to pt about life alert button and benefits along with follow up care for todays visit. pt agreeable. helped dress
== END 2020-10-13 19:08 | disposition home or self-care (01) ==
PROVIDERS: Emergency Provider Emergency Medicine
DX: R91.8 Other nonspecific abnormal finding of lung field (principal); R42 Dizziness and giddiness; Z95.0 Presence of cardiac pacemaker; R55 Syncope and collapse; W19.XXXA Unspecified fall, initial encounter; R29.6 Repeated falls
CPT/HCPCS: 36415; 70450; 71045; 72125; 80053; 82550; 83690; 84484; 85025; 93005; 99283; 99284

== ENCOUNTER 2020-10-25 15:37 | Inpatient (IN) | payer OTHER, SELFPAY ==
[2020-10-25] VITALS (39 sets, daily range): BP systolic 69–171; BP diastolic 41–88; PULSE 62–113; RESP 12–35; TEMP 34.4–38.1; O2SAT 83–100; BMI 21.4
--- NOTE | 2020-10-25 | DI.RAD.S_ITS ---
PROCEDURE: XR ABDOMEN 1V INDICATIONS: SEPTIC TECHNIQUE: One view of the abdomen acquired. COMPARISON: [facility], , XR ABDOMEN 1V, 10/25/2020, 15:48. [facility], , ABDOMEN 1 VIEW, 12/21/2006, 10:33. FINDINGS: Surgical changes and devices: None. Bowel: Bowel gas pattern is normal. Soft tissues: No suspicious abdominal calcifications. Visualized solid organ contours appear normal in size. Bones: No suspicious bony lesions. IMPRESSION: Nonspecific bowel gas pattern, no subdiaphragmatic free air seen. Depending on the clinical status follow-up by contrast-enhanced CT scanning may be warranted. Note is made of unusually prominent atherosclerotic calcifications at the iliac arteries bilaterally. No aneurysm suspected. Dictated by: Hung Gunderson M.D. on 10/25/2020 at 16:21 Approved by: Hung Gunderson M.D. on 10/25/2020 at 16:21
[2020-10-25] MEDS: SODIUM CHLORIDE 0.9% 1,000 ML 1000 ML IV (15:33)
--- NOTE | 2020-10-25 15:39 | DI.RAD.S_ITS ---
PROCEDURE: XR CHEST 1V INDICATIONS: septic shock TECHNIQUE: One view of the chest was acquired. COMPARISON: [facility], CR, XR CHEST 1V, 10/13/2020, 16:39. FINDINGS: Surgical changes and devices: A left chest wall pacer/defibrillator is seen. Lungs and pleura: Lungs are clear. No pleural effusions or pneumothorax. Mediastinum: Mediastinal contours appear normal. Heart size is normal. The aorta has atherosclerotic calcifications. Bones and chest wall: No suspicious bony lesions. Overlying soft tissues appear unremarkable. IMPRESSION: No acute cardiopulmonary abnormality. Dictated by: Roberto Bowens M.D. on 10/25/2020 at 16:07 Approved by: Roberto Bowens M.D. on 10/25/2020 at 16:10
--- NOTE | 2020-10-25 15:39 | DI.RAD.S_ITS ---
PROCEDURE: XR ABDOMEN 1V INDICATIONS: severe abdominal pain TECHNIQUE: One view of the abdomen acquired. COMPARISON: CT, ABDOMEN/PELVIS WITH CONTRAST, 06/13/2013, 15:18. [facility], , ABDOMEN 1 VIEW, 12/21/2006, 10:33. [facility], , ABDOMEN 1 VIEW, 12/20/2006, 9:52. FINDINGS: Surgical changes and devices: None. Bowel: Bowel gas pattern is normal. Soft tissues: No suspicious abdominal calcifications. Visualized solid organ contours appear normal in size. Bones: No suspicious bony lesions. IMPRESSION: A source of severe abdominal pain is not found. Pacing device with dual chamber leads is partially visualized. Is noted. Dictated by: Hung Gunderson M.D. on 10/25/2020 at 16:03 Approved by: Hung Gunderson M.D. on 10/25/2020 at 16:05
[2020-10-25] MEDS: NOREPINEPHRINE 4 MG in DEXTROSE 5% IN WATER 250 ML 38.1 ML IV (15:45)
[2020-10-25] MEDS: EPINEPHrine 1 MG/10 ML SYRINGE (15:46)
--- NOTE | 2020-10-25 15:49 | PC.NURSE ---
2ml push dose epi administered 154 by Zahraa khan from DR Fox.
--- NOTE | 2020-10-25 15:50 | PC.NURSE ---
2 large bore IV with NS running wide open bolus.
[2020-10-25 15:57] LABS: Add Manual Diff / Slide Review NO; Basophils Absolute Auto 100 /uL (0-100); Basophils Percent Auto 0.7 % (0-2); Eosinophils Absolute Auto 200 /uL (0-450); Eosinophils Percent Auto 1.7 % (2-4); Hematocrit 46.9 % (36-46); Hemoglobin 15.7 g/dL (12.0-16.0); Lymphocytes Absolute Auto 5500 /uL (1100-4500); Lymphocytes Percent Auto 37.7 % (25-40); Mean Corpuscular HGB Conc 33.4 % (30-36); Mean Corpuscular Hemoglobin 31.2 PG (26-34); Mean Corpuscular Volume 93.5 fL (80-100); Monocytes Absolute Auto 700 /uL (0-900); Monocytes Percent Auto 4.9 % (3-14); Neutrophils Absolute Auto 8100 /uL (1500-7000); Platelet Count 215 X10^3/uL (150-400); Red Blood Cell Count 5.02 X10^6/uL (4.0-5.2); Red Cell Distribution Width 14.7 % (11.6-14.8); White Blood Cell Count 14.7 X10^3/uL (4.5-11.0)
--- NOTE | 2020-10-25 15:57 | ED_ITS ---
HPI - Abdominal Pain <Pipe PatrickDO ashely - Last Filed: 11/01/20 21:46> General Chief Complaint: Abdominal Pain Stated Complaint: Septic Time Seen by Provider: 10/25/20 15:39 Source: EMS Mode of arrival: EMS Limitations: no limitations History of Present Illness HPI narrative: 80-year-old female daily smoker with history arrhythmia, pacemaker on Plavix, hyperlipidemia, and prior stroke with history of acute ischemic colitis presents by EMS with a chief complaint severe abdominal pain, nausea, no bowel movements, no flatus over the course of the day. Her pain is significantly worse with any motion and improves with rest. EMS was contacted and found her with blood pressure in the 50s, she had IV placed, IV fluids administered and an epinephrine drip initiated. She has had no known exposure to COVID. She denies any runny nose, sore throat, chest pain or cough. She has had no shortness of breath. MD complaint: abdominal pain Onset (ago): hour(s) Pain Consistency: constant Location: diffuse Severity: severe Severity scale (1-10): 10 Quality: cramping and aching Migration to: no migration Relieving factors: nothing Exacerbating factors: movement Associated symptoms: nausea, vomiting and chills Related Data Home Medications Medication Instructions Recorded Confirmed metoprolol succinate 12.5 mg PO DAILY 10/25/20 10/25/20 bupropion HCl [Wellbutrin SR] 150 mg PO BID 10/26/20 10/26/20 clopidogrel 75 mg PO DAILY 10/26/20 10/26/20 lisinopril-hydrochlorothiazide 1 tab PO DAILY 10/26/20 10/26/20 oxybutynin chloride 5 mg PO DAILY 10/26/20 10/26/20 Previous Rx's Medication Instructions Recorded cefuroxime axetil 500 mg PO BID #14 tab 10/31/20 Allergies Allergy/AdvReac Type Severity Reaction Status Date / Time latex [LATEX] Allergy Mild Verified 10/25/20 16:21 amoxicillin [AMOXICILLIN] Allergy Unknown Verified 10/25/20 16:21 levofloxacin [LEVOFLOXACIN] Allergy Unknown Verified 10/25/20 16:21 niacin Allergy Unknown Verified 10/26/20 08:16 sulfamethoxazole Allergy Unknown Verified 10/26/20 08:16 [From Bactrim] tobramycin Allergy Unknown Verified 10/26/20 08:16 trimethoprim [From Bactrim] Allergy Unknown Verified 10/26/20 08:16 varenicline [From Chantix] Allergy Unknown Verified 10/26/20 08:16 Review of Systems <Pipe Fox DO - Last Filed: 11/01/20 21:46> Constitutional Constitutional: Reports chills, Reports fatigue, Denies fever(s), Denies frequent falls, Denies lethargy and Reports weakness Eyes Eyes: Denies change in vision, Denies eye discharge, Denies irritation and Denies loss of vision ENT Ears, Nose, Mouth, and Throat: Denies change in voice, Denies dizziness, Denies neck pain, Denies sore throat and Denies throat swelling Cardiovascular Cardiovascular: Denies chest pain, Denies irregular heart rhythm, Denies lightheadedness, Denies palpitations, Denies dyspnea, Denies dyspnea on exertion and Denies orthopnea Respiratory Respiratory: Denies cough, Denies dyspnea, Denies dyspnea on exertion and Denies wheezing Gastrointestinal Gastrointestinal: Reports abdominal pain, Reports change in bowel habits, Denies diarrhea, Reports nausea and Reports vomiting Musculoskeletal Musculoskeletal: Denies neck pain and Denies numbness Integumentary/Breasts Skin/Breast: Denies pruritus, Denies erythema, Denies rash and Denies wounds Neurologic Neurologic: Denies behavioral changes, Denies confusion, Denies dizziness, Denies frequent falls, Denies loss of vision, Denies numbness and Reports weakness Psychiatric Psychiatric: Denies anxiety, Denies behavioral changes, Denies confusion, Denies depression, Denies homicidal ideation and Denies suicidal ideation Endocrine Endocrine: Reports fatigue, Denies flushing and Denies palpitations Hematologic/Lymphatic Hematologic/Lymphatic: Denies easy bruising Allergic/Immunologic Allergic/Immunologic: Denies urticaria, Denies throat swelling and Denies wheezing Patient History <Pipe Fox DO - Last Filed: 11/01/20 21:46> Medical History Ischemic colitis Pacemaker Surgical History H/O: hysterectomy History of bilateral oophorectomies Social History household members: children Smoking Status: Current every day smoker alcohol intake: never substance use type: does not use Smoking Status: Current every day smoker tobacco type: cigarettes Exam <Pipe Fox DO - Last Filed: 11/01/20 21:46> Narrative Exam Narrative: GENERAL: [80] year old patient appears stated age. Patient is obvious in significant distress, moaning and complaining of pain rubbing her abdomen, initial pressure in the 60s HEAD: Atraumatic. Normocephalic. EYES: Pupils equal round and reactive. Extraocular motions intact. No scleral icterus. No injection or drainage. ENT: Dry mucous membranes Nose without bleeding, purulent drainage. Throat without erythema, tonsillar hypertrophy or exudate. Airway patent. NECK: Trachea midline. Non tender CARDIOVASCULAR: Regular rate and rhythm without murmurs, gallops, or rubs. RESPIRATORY: Clear to auscultation. Breath sounds equal bilaterally. No wheezes, rales, or rhonchi. GASTROINTESTINAL: Significant abdominal pain with rebound and guarding, de creased bowel sounds, firm EXTREMITIES: No edema or joint tenderness. BACK: Nontender without deformity or crepitance. No flank tenderness. NEURO: AOx3. SKIN: Poor turgor No rash or erythema of visible areas Initial Vital Signs Initial Vital Signs: Vital Signs Temperature 94 F L 10/25/20 15:38 Pulse Rate 62 10/25/20 15:38 Respiratory Rate 22 10/25/20 15:38 Blood Pressure 171/88 H 10/25/20 15:38 Pulse Oximetry 90 L 10/25/20 15:38 <Adri Cohen MD - Last Filed: 10/26/20 03:29> Initial Vital Signs Initial Vital Signs: Vital Signs Temperature 94 F L 10/25/20 15:38 Pulse Rate 62 10/25/20 15:38 Respiratory Rate 22 10/25/20 15:38 Blood Pressure 171/88 H 10/25/20 15:38 Pulse Oximetry 90 L 10/25/20 15:38 <Adri Cohen MD - Last Filed: 10/26/20 03:29> [facility] [place] Procedure Name of Procedure: NG placement Technique/Description of procedure performed: 80-year-old woman with small-bowel obstruction significantly dilated abdomen and persistent vomiting. NG tube was placed for comfort and treatment and after multiple attempts by nursing staff for still unable to advance tube appropriately. Patient was given small dose of both Versed and fentanyl to relaxer and using the glide scope for visualization the NG tube was redirected to the esophagus rather than through the vocal cords. The patient tolerated the procedure well and copious amounts of gastric contents were returned. Patient tolerated procedure: Well Course <Pipe DO Ruddy - Last Filed: 11/01/20 21:46> Orders Ordered: Discontinued Medications Cefuroxime Axetil (Cefuroxime 250 Mg Tablet) 500 mg PO BID [facility] Last Admin: 10/31/20 09:34 Dose: 500 mg Documented by: Admin: 10/30/20 20:42 Dose: 500 mg Documented by: Admin: 10/30/20 11:45 Dose: 500 mg Documented by: MONALISA Clopidogrel Bisulfate (Clopidogrel 75 Mg Tablet) 75 mg PO DAILY [facility] Admin: 10/31/20 09:34 Dose: 75 mg Documented by: Admin: 10/30/20 13:16 Dose: 75 mg Documented by: Admin: 10/29/20 08:27 Dose: 75 mg Documented by: Admin: 10/28/20 09:33 Dose: 75 mg Documented by: MATTHEW Enoxaparin Sodium (Enoxaparin 40 Mg/0.4 Ml Syringe) 40 mg SUBCUT DAILY [facility] Admin: 10/27/20 08:52 Dose: 40 mg Documented by: Admin: 10/26/20 09:21 Dose: 40 mg Documented by: MATTHEW Hydrochlorothiazide (Hydrochlorothiazide 25 Mg Tablet) 12.5 mg PO DAILY [facility] Admin: 10/31/20 09:36 Dose: 12.5 mg Documented by: Admin: 10/30/20 13:16 Dose: 12.5 mg Documented by: Admin: 10/29/20 08:31 Dose: 12.5 mg Documented by: Admin: 10/28/20 09:33 Dose: 12.5 mg Documented by: MATTHEW Hydromorphone HCl (Hydromorphone 0.5 Mg Inj) 0.5 mg IV NOW ONE Stop: 10/25/20 16:39 Last Admin: 10/25/20 16:43 Dose: 0.5 mg Documented by: KENY Hydromorphone HCl (Hydromorphone 0.5 Mg Inj) 0.5 mg IV NOW ONE Stop: 10/25/20 17:55 Last Admin: 10/25/20 17:58 Dose: 0.5 mg Documented by: BOBO Hydromorphone HCl (Hydromorphone 0.5 Mg Inj) 0.5 mg IV Q2H PRN PRN Reason: Pain, Severe (7-10) Norepinephrine Bitartrate 4 mg (/ Dextrose) 254 mls @ 30.48 mls/hr IV TITRATE TIFFANI; Protocol Last Titration: 10/25/20 22:24 Dose: 0 mcg/min, 0 mls/hr Documented by: Titration: 10/25/20 18:42 Dose: 0 mcg/min, 0 mls/hr Documented by: Titration: 10/25/20 17:40 Dose: 3 mcg/min, 11.43 mls/hr Documented by: Titration: 10/25/20 17:13 Dose: 4 mcg/min, 15.24 mls/hr Documented by: Titration: 10/25/20 16:48 Dose: 5 mcg/min, 19.05 mls/hr Documented by: Titration: 10/25/20 16:29 Dose: 7.5 mcg/min, 28.575 mls/hr Documented by: Titration: 10/25/20 16:23 Dose: 10 mcg/min, 38.1 mls/hr Documented by: Admin: 10/25/20 15:45 Dose: 10 mcg/min, 38.1 mls/hr Documented by: KENY Sodium Chloride (Normal Saline 0.9%) 1,000 mls @ 1,000 mls/hr IV BOLUS ONE Stop: 10/25/20 17:06 Last Infusion: 10/25/20 16:40 Dose: 0 mls/hr Documented by: Admin: 10/25/20 15:33 Dose: 1,000 mls/hr Documented by: KENY Sodium Chloride (Normal Saline 0.9%) 1,000 mls @ 125 mls/hr IV BOLUS ONE Stop: 10/26/20 00:09 Last Infusion: 10/25/20 23:43 Dose: 125 mls/hr Documented by: Infusion: 10/25/20 22:20 Dose: 125 mls/hr Documented by: Infusion: 10/25/20 18:47 Dose: 0 mls/hr Documented by: Admin: 10/25/20 16:23 Dose: 125 mls/hr Documented by: KENY Lactated Ringer's (Lactated Ringers) 1,700 mls @ 566.667 mls/hr IV BOLUS ONE Stop: 10/25/20 19:14 Last Infusion: 10/25/20 19:37 Dose: 0 mls/hr Documented by: Admin: 10/25/20 16:23 Dose: 566.667 mls/hr Documented by: KENY Ceftriaxone Sodium/Dextrose (Rocephin) 1 gm in 50 mls @ 100 mls/hr IV NOW ONE Stop: 10/25/20 16:59 Last Infusion: 10/25/20 17:13 Dose: 0 mls/hr Documented by: Admin: 10/25/20 16:37 Dose: 100 mls/hr Documented by: KENY Metronidazole (Flagyl) 500 mg in 100 mls @ 100 mls/hr IV NOW ONE Stop: 10/25/20 17:29 Last Infusion: 10/25/20 18:31 Dose: 0 mls/hr Documented by: Admin: 10/25/20 16:49 Dose: 100 mls/hr Documented by: KENY Sodium Chloride (Normal Saline 0.9%) 1,000 mls @ 150 mls/hr IV CONT TIFFANI Last Infusion: 10/27/20 09:00 Dose: 0 mls/hr Documented by: Infusion: 10/27/20 08:50 Dose: 0 mls/hr Documented by: Admin: 10/27/20 05:49 Dose: 150 mls/hr Documented by: Infusion: 10/27/20 04:19 Dose: 150 mls/hr Documented by: Admin: 10/26/20 21:38 Dose: 150 mls/hr Documented by: Infusion: 10/26/20 20:31 Dose: 150 mls/hr Documented by: Admin: 10/26/20 13:50 Dose: 150 mls/hr Documented by: Infusion: 10/26/20 13:09 Dose: 150 mls/hr Documented by: Infusion: 10/26/20 08:40 Dose: 150 mls/hr Documented by: Admin: 10/26/20 06:02 Dose: 125 mls/hr Documented by: Admin: 10/25/20 22:21 Dose: Not Given Documented by: CHIDI Ceftriaxone Sodium/Dextrose (Rocephin) 2 gm in 50 mls @ 100 mls/hr IV Q24H [facility] Last Infusion: 10/29/20 16:20 Dose: 100 mls/hr Documented by: Admin: 10/29/20 15:43 Dose: 100 mls/hr Documented by: Infusion: 10/28/20 16:37 Dose: 0 mls/hr Documented by: Admin: 10/28/20 16:05 Dose: 100 mls/hr Documented by: Infusion: 10/28/20 16:05 Dose: 0 mls/hr Documented by: Infusion: 10/27/20 16:31 Dose: 0 mls/hr Documented by: Admin: 10/27/20 16:06 Dose: 100 mls/hr Documented by: Infusion: 10/26/20 16:35 Dose: 0 mls/hr Documented by: Admin: 10/26/20 16:05 Dose: 100 mls/hr Documented by: ASYA Metronidazole (Flagyl) 500 mg in 100 mls @ 100 mls/hr IV Q8H [facility] Last Admin: 10/30/20 13:47 Dose: Not Given Documented by: Infusion: 10/30/20 02:03 Dose: 0 mls/hr Documented by: Admin: 10/30/20 00:26 Dose: 100 mls/hr Documented by: Infusion: 10/29/20 19:08 Dose: 100 mls/hr Documented by: Admin: 10/29/20 16:52 Dose: 100 mls/hr Documented by: Infusion: 10/29/20 13:01 Dose: 0 mls/hr Documented by: Admin: 10/29/20 08:32 Dose: 100 mls/hr Documented by: Infusion: 10/29/20 01:36 Dose: 100 mls/hr Documented by: Admin: 10/29/20 00:36 Dose: 100 mls/hr Documented by: Infusion: 10/28/20 18:21 Dose: 0 mls/hr Documented by: Admin: 10/28/20 17:21 Dose: 100 mls/hr Documented by: Infusion: 10/28/20 11:03 Dose: 0 mls/hr Documented by: Admin: 10/28/20 09:35 Dose: 100 mls/hr Documented by: Infusion: 10/28/20 02:17 Dose: 0 mls/hr Documented by: Admin: 10/28/20 01:01 Dose: 100 mls/hr Documented by: Infusion: 10/27/20 17:43 Dose: 0 mls/hr Documented by: Admin: 10/27/20 16:43 Dose: 100 mls/hr Documented by: Infusion: 10/27/20 11:00 Dose: 0 mls/hr Documented by: Admin: 10/27/20 08:52 Dose: 100 mls/hr Documented by: Infusion: 10/27/20 02:45 Dose: 0 mls/hr Documented by: Admin: 10/27/20 01:43 Dose: 100 mls/hr Documented by: Infusion: 10/26/20 17:06 Dose: 0 mls/hr Documented by: Admin: 10/26/20 16:06 Dose: 100 mls/hr Documented by: Infusion: 10/26/20 13:51 Dose: 0 mls/hr Documented by: Admin: 10/26/20 09:21 Dose: 100 mls/hr Documented by: Infusion: 10/26/20 02:37 Dose: 0 mls/hr Documented by: Admin: 10/26/20 01:37 Dose: 100 mls/hr Documented by: HOLLAND Potassium Chloride/Sodium Chloride (Ns With Kcl 20 Meq) 1,000 mls @ 125 mls/hr IV CONT TIFFANI Last Infusion: 10/28/20 09:36 Dose: 0 mls/hr Documented by: Admin: 10/28/20 05:32 Dose: 125 mls/hr Documented by: Infusion: 10/28/20 04:12 Dose: 125 mls/hr Documented by: Admin: 10/27/20 20:12 Dose: 125 mls/hr Documented by: Infusion: 10/27/20 20:02 Dose: 0 mls/hr Documented by: Admin: 10/27/20 08:51 Dose: 125 mls/hr Documented by: MATTHEW Potassium Chloride 40 meq/ (Dextrose/Sodium Chloride) 1,020 mls @ 125 mls/hr IV CONT TIFFANI Last Infusion: 10/30/20 08:53 Dose: 0 mls/hr Documented by: MONALISA Cosigned by: WALI Admin: 10/29/20 19:09 Dose: 125 mls/hr Documented by: ARFAEL Cosigned by: BHARGAV Infusion: 10/29/20 15:09 Dose: 125 mls/hr Documented by: RAFAEL Cosigned by: BHARGAV Admin: 10/29/20 06:59 Dose: 125 mls/hr Documented by: TUYET Cosigned by: MALGORZATA Infusion: 10/29/20 05:50 Dose: 125 mls/hr Documented by: TUYET Cosigned by: MALGORZATA Admin: 10/28/20 21:40 Dose: 125 mls/hr Documented by: KAYLEN Cosigned by: DAVID Infusion: 10/28/20 21:37 Dose: 0 mls/hr Documented by: KAYLEN Cosigned by: DAVID Admin: 10/28/20 09:33 Dose: 125 mls/hr Documented by: MATTHEW Cosigned by: SMAMYBONStephanie Potassium Chloride 40 meq/ (Dextrose/Sodium Chloride) 1,020 mls @ 84 mls/hr IV CONT TIFFANI Last Admin: 10/31/20 00:34 Dose: 84 mls/hr Documented by: LEONARDO Cosigned by: HBFAMILIA Infusion: 10/31/20 00:34 Dose: 84 mls/hr Documented by: LEONARDO Cosigned by: HBFAMILIA Admin: 10/30/20 21:55 Dose: 84 mls/hr Documented by: BROOKE Cosigned by: PURVI Ketorolac Tromethamine (Ketorolac 60 Mg/2 Ml Vial) 15 mg IV NOW ONE Stop: 10/25/20 22:32 Last Admin: 10/25/20 22:37 Dose: 15 mg Documented by: CHIDI Lisinopril (Lisinopril 10 Mg Tablet) 10 mg PO DAILY [facility] Last Admin: 10/31/20 09:31 Dose: 10 mg Documented by: Admin: 10/30/20 13:16 Dose: 10 mg Documented by: Admin: 10/29/20 08:31 Dose: 10 mg Documented by: Admin: 10/28/20 09:34 Dose: 10 mg Documented by: MATTHEW Lorazepam (Lorazepam 2 Mg/Ml Inj) 0.5 mg IV Q6HR PRN PRN Reason: Anxiety Last Admin: 10/31/20 01:25 Dose: 0.5 mg Documented by: Admin: 10/30/20 00:25 Dose: 0.5 mg Documented by: Admin: 10/26/20 22:34 Dose: 0.5 mg Documented by: ASYA Metoprolol Succinate (Metoprolol Er 25 Mg Tablet) 12.5 mg PO DAILY [facility] Last Admin: 10/31/20 09:35 Dose: 12.5 mg Documented by: Admin: 10/30/20 13:16 Dose: 12.5 mg Documented by: Admin: 10/29/20 08:28 Dose: 12.5 mg Documented by: Admin: 10/28/20 09:34 Dose: 12.5 mg Documented by: MATTHEW Metoprolol Tartrate (Metoprolol Tartrate 5 Mg/5 Ml Inj) 5 mg IV Q6H [facility] Last Admin: 10/28/20 02:17 Dose: 5 mg Documented by: Admin: 10/27/20 20:11 Dose: 5 mg Documented by: Admin: 10/27/20 14:53 Dose: 5 mg Documented by: Admin: 10/27/20 08:51 Dose: 5 mg Documented by: MATTHEW Morphine Sulfate (Morphine 2 Mg/Ml Inj) 2 mg IV Q4HR PRN PRN Reason: Pain, Moderate (4-6) Last Admin: 10/26/20 02:04 Dose: 2 mg Documented by: HOLLAND Naloxone HCl (Naloxone 0.4 Mg/Ml Vial) 0.2 mg IV Q2MIN PRN PRN Reason: Opiate Reversal Nicotine (Nicotine 14 Patch) 14 mg TOP DAILY [facility] Last Admin: 10/31/20 09:34 Dose: 14 mg Documented by: Admin: 10/30/20 13:16 Dose: 14 mg Documented by: Admin: 10/29/20 08:33 Dose: 14 mg Documented by: Admin: 10/28/20 09:34 Dose: 14 mg Documented by: Admin: 10/27/20 08:52 Dose: 14 mg Documented by: MATTHEW Ondansetron HCl (Ondansetron 4 Mg/2 Ml Inj) 4 mg IV NOW ONE Stop: 10/25/20 16:39 Last Admin: 10/25/20 16:43 Dose: 4 mg Documented by: KENY Ondansetron HCl (Ondansetron 4 Mg/2 Ml Inj) 4 mg IV Q8HR PRN PRN Reason: Nausea And Vomiting Pantoprazole Sodium (Pantoprazole 20 Mg Tablet) 20 mg PO 0600 [facility] Last Admin: 10/26/20 06:44 Dose: Not Given Documented by: HOLLAND Pantoprazole Sodium (Pantoprazole 40 Mg Vial) 20 mg IV DAILY [facility] Last Admin: 10/31/20 09:36 Dose: 20 mg Documented by: Admin: 10/30/20 13:16 Dose: 20 mg Documented by: Admin: 10/29/20 08:33 Dose: 20 mg Documented by: Admin: 10/28/20 09:35 Dose: 20 mg Documented by: Admin: 10/27/20 08:53 Dose: 20 mg Documented by: Admin: 10/26/20 09:21 Dose: 20 mg Documented by: MATTHEW Reevaluation(s) Reevaluation #1: BP improving with fluids, pressors weaning down. Patient making good urine. Current MAP 82 Time: 16:40 Reevaluation #2: patient continuing to improve. No longer on pressors. Pain largely in LLQ now and belly much softer. BP stable. Labs repeated. Still waiting on CT Dr. Ford has revisited patient. Time: 19:51 Consultations Consultation #1: Dr. Ford has seen and evaluated patient at the bedside. Will administer ABX and continue to fluid resuscitate, wean pressors. CT available at 1800 Vital Signs Vital signs: Vital Signs - 8 hr 10/25/20 19:31 10/25/20 19:45 10/25/20 20:00 Temperature 98.2 F Pulse Rate 75 88 85 Respiratory Rate 16 21 17 Blood Pressure 131/65 115/57 L 96/59 L Pulse Oximetry 99 99 10/25/20 20:44 10/25/20 21:29 10/25/20 21:52 Temperature 99.7 F H Pulse Rate 87 87 86 Respiratory Rate 20 23 16 Blood Pressure 143/65 H 128/60 123/59 L Pulse Oximetry 95 93 94 <Adri Cohen MD - Last Filed: 10/26/20 03:29> Orders Ordered: Discontinued Medications Cefuroxime Axetil (Cefuroxime 250 Mg Tablet) 500 mg PO BID [facility] Last Admin: 10/31/20 09:34 Dose: 500 mg Documented by: Admin: 10/30/20 20:42 Dose: 500 mg Documented by: Admin: 10/30/20 11:45 Dose: 500 mg Documented by: MONALISA Clopidogrel Bisulfate (Clopidogrel 75 Mg Tablet) 75 mg PO DAILY [facility] Last Admin: 10/31/20 09:34 Dose: 75 mg Documented by: Admin: 10/30/20 13:16 Dose: 75 mg Documented by: Admin: 10/29/20 08:27 Dose: 75 mg Documented by: Admin: 10/28/20 09:33 Dose: 75 mg Documented by: MATTHEW Enoxaparin Sodium (Enoxaparin 40 Mg/0.4 Ml Syringe) 40 mg SUBCUT DAILY [facility] Last Admin: 10/27/20 08:52 Dose: 40 mg Documented by: Admin: 10/26/20 09:21 Dose: 40 mg Documented by: MATTHEW Hydrochlorothiazide (Hydrochlorothiazide 25 Mg Tablet) 12.5 mg PO DAILY [facility] Last Admin: 10/31/20 09:36 Dose: 12.5 mg Documented by: Admin: 10/30/20 13:16 Dose: 12.5 mg Documented by: Admin: 10/29/20 08:31 Dose: 12.5 mg Documented by: Admin: 10/28/20 09:33 Dose: 12.5 mg Documented by: MATTHEW Hydromorphone HCl (Hydromorphone 0.5 Mg Inj) 0.5 mg IV NOW ONE Stop: 10/25/20 16:39 Last Admin: 10/25/20 16:43 Dose: 0.5 mg Documented by: KENY Hydromorphone HCl (Hydromorphone 0.5 Mg Inj) 0.5 mg IV NOW ONE Stop: 10/25/20 17:55 Last Admin: 10/25/20 17:58 Dose: 0.5 mg Documented by: BOBO Hydromorphone HCl (Hydromorphone 0.5 Mg Inj) 0.5 mg IV Q2H PRN PRN Reason: Pain, Severe (7-10) Norepinephrine Bitartrate 4 mg (/ Dextrose) 254 mls @ 30.48 mls/hr IV TITRATE TIFFANI; Protocol Last Titration: 10/25/20 22:24 Dose: 0 mcg/min, 0 mls/hr Documented by: Titration: 10/25/20 18:42 Dose: 0 mcg/min, 0 mls/hr Documented by: Titration: 10/25/20 17:40 Dose: 3 mcg/min, 11.43 mls/hr Documented by: Titration: 10/25/20 17:13 Dose: 4 mcg/min, 15.24 mls/hr Documented by: Titration: 10/25/20 16:48 Dose: 5 mcg/min, 19.05 mls/hr Documented by: Titration: 10/25/20 16:29 Dose: 7.5 mcg/min, 28.575 mls/hr Documented by: Titration: 10/25/20 16:23 Dose: 10 mcg/min, 38.1 mls/hr Documented by: Admin: 10/25/20 15:45 Dose: 10 mcg/min, 38.1 mls/hr Documented by: KENY Sodium Chloride (Normal Saline 0.9%) 1,000 mls @ 1,000 mls/hr IV BOLUS ONE Stop: 10/25/20 17:06 Last Infusion: 10/25/20 16:40 Dose: 0 mls/hr Documented by: Admin: 10/25/20 15:33 Dose: 1,000 mls/hr Documented by: KENY Sodium Chloride (Normal Saline 0.9%) 1,000 mls @ 125 mls/hr IV BOLUS ONE Stop: 10/26/20 00:09 Last Infusion: 10/25/20 23:43 Dose: 125 mls/hr Documented by: Infusion: 10/25/20 22:20 Dose: 125 mls/hr Documented by: Infusion: 10/25/20 18:47 Dose: 0 mls/hr Documented by: Admin: 10/25/20 16:23 Dose: 125 mls/hr Documented by: KENY Lactated Ringer's (Lactated Ringers) 1,700 mls @ 566.667 mls/hr IV BOLUS ONE Stop: 10/25/20 19:14 Last Infusion: 10/25/20 19:37 Dose: 0 mls/hr Documented by: Admin: 10/25/20 16:23 Dose: 566.667 mls/hr Documented by: KENY Ceftriaxone Sodium/Dextrose (Rocephin) 1 gm in 50 mls @ 100 mls/hr IV NOW ONE Stop: 10/25/20 16:59 Last Infusion: 10/25/20 17:13 Dose: 0 mls/hr Documented by: Admin: 10/25/20 16:37 Dose: 100 mls/hr Documented by: KENY Metronidazole (Flagyl) 500 mg in 100 mls @ 100 mls/hr IV NOW ONE Stop: 10/25/20 17:29 Last Infusion: 10/25/20 18:31 Dose: 0 mls/hr Documented by: Admin: 10/25/20 16:49 Dose: 100 mls/hr Documented by: KENY Sodium Chloride (Normal Saline 0.9%) 1,000 mls @ 150 mls/hr IV CONT TIFFANI Last Infusion: 10/27/20 09:00 Dose: 0 mls/hr Documented by: Infusion: 10/27/20 08:50 Dose: 0 mls/hr Documented by: Admin: 10/27/20 05:49 Dose: 150 mls/hr Documented by: Infusion: 10/27/20 04:19 Dose: 150 mls/hr Documented by: Admin: 10/26/20 21:38 Dose: 150 mls/hr Documented by: Infusion: 10/26/20 20:31 Dose: 150 mls/hr Documented by: Admin: 10/26/20 13:50 Dose: 150 mls/hr Documented by: Infusion: 10/26/20 13:09 Dose: 150 mls/hr Documented by: Infusion: 10/26/20 08:40 Dose: 150 mls/hr Documented by: Admin: 10/26/20 06:02 Dose: 125 mls/hr Documented by: Admin: 10/25/20 22:21 Dose: Not Given Documented by: CHIDI Ceftriaxone Sodium/Dextrose (Rocephin) 2 gm in 50 mls @ 100 mls/hr IV Q24H [facility] Last Infusion: 10/29/20 16:20 Dose: 100 mls/hr Documented by: Admin: 10/29/20 15:43 Dose: 100 mls/hr Documented by: Infusion: 10/28/20 16:37 Dose: 0 mls/hr Documented by: Admin: 10/28/20 16:05 Dose: 100 mls/hr Documented by: Infusion: 10/28/20 16:05 Dose: 0 mls/hr Documented by: Infusion: 10/27/20 16:31 Dose: 0 mls/hr Documented by: Admin: 10/27/20 16:06 Dose: 100 mls/hr Documented by: Infusion: 10/26/20 16:35 Dose: 0 mls/hr Documented by: Admin: 10/26/20 16:05 Dose: 100 mls/hr Documented by: ASYA Metronidazole (Flagyl) 500 mg in 100 mls @ 100 mls/hr IV Q8H [facility] Last Admin: 10/30/20 13:47 Dose: Not Given Documented by: Infusion: 10/30/20 02:03 Dose: 0 mls/hr Documented by: Admin: 10/30/20 00:26 Dose: 100 mls/hr Documented by: Infusion: 10/29/20 19:08 Dose: 100 mls/hr Documented by: Admin: 10/29/20 16:52 Dose: 100 mls/hr Documented by: Infusion: 10/29/20 13:01 Dose: 0 mls/hr Documented by: Admin: 10/29/20 08:32 Dose: 100 mls/hr Documented by: Infusion: 10/29/20 01:36 Dose: 100 mls/hr Documented by: Admin: 10/29/20 00:36 Dose: 100 mls/hr Documented by: Infusion: 10/28/20 18:21 Dose: 0 mls/hr Documented by: Admin: 10/28/20 17:21 Dose: 100 mls/hr Documented by: Infusion: 10/28/20 11:03 Dose: 0 mls/hr Documented by: Admin: 10/28/20 09:35 Dose: 100 mls/hr Documented by: Infusion: 10/28/20 02:17 Dose: 0 mls/hr Documented by: Admin: 10/28/20 01:01 Dose: 100 mls/hr Documented by: Infusion: 10/27/20 17:43 Dose: 0 mls/hr Documented by: Admin: 10/27/20 16:43 Dose: 100 mls/hr Documented by: Infusion: 10/27/20 11:00 Dose: 0 mls/hr Documented by: Admin: 10/27/20 08:52 Dose: 100 mls/hr Documented by: Infusion: 10/27/20 02:45 Dose: 0 mls/hr Documented by: Admin: 10/27/20 01:43 Dose: 100 mls/hr Documented by: Infusion: 10/26/20 17:06 Dose: 0 mls/hr Documented by: Admin: 10/26/20 16:06 Dose: 100 mls/hr Documented by: Infusion: 10/26/20 13:51 Dose: 0 mls/hr Documented by: Admin: 10/26/20 09:21 Dose: 100 mls/hr Documented by: Infusion: 10/26/20 02:37 Dose: 0 mls/hr Documented by: Admin: 10/26/20 01:37 Dose: 100 mls/hr Documented by: HOLLAND Potassium Chloride/Sodium Chloride (Ns With Kcl 20 Meq) 1,000 mls @ 125 mls/hr IV CONT TIFFANI Last Infusion: 10/28/20 09:36 Dose: 0 mls/hr Documented by: Admin: 10/28/20 05:32 Dose: 125 mls/hr Documented by: Infusion: 10/28/20 04:12 Dose: 125 mls/hr Documented by: Admin: 10/27/20 20:12 Dose: 125 mls/hr Documented by: Infusion: 10/27/20 20:02 Dose: 0 mls/hr Documented by: Admin: 10/27/20 08:51 Dose: 125 mls/hr Documented by: MATTHEW Potassium Chloride 40 meq/ (Dextrose/Sodium Chloride) 1,020 mls @ 125 mls/hr IV CONT TIFFANI Last Infusion: 10/30/20 08:53 Dose: 0 mls/hr Documented by: MONALISA Cosigned by: WALI Admin: 10/29/20 19:09 Dose: 125 mls/hr Documented by: RAFAEL Cosigned by: BHARGAV Infusion: 10/29/20 15:09 Dose: 125 mls/hr Documented by: RAFAEL Cosigned by: BHARGAV Admin: 10/29/20 06:59 Dose: 125 mls/hr Documented by: TUYET Cosigned by: MALGORZATA Infusion: 10/29/20 05:50 Dose: 125 mls/hr Documented by: TUYET Cosigned by: MALGORZATA Admin: 10/28/20 21:40 Dose: 125 mls/hr Documented by: KAYLEN Cosigned by: DAVID Infusion: 10/28/20 21:37 Dose: 0 mls/hr Documented by: KAYLEN Cosigned by: DAVID Admin: 10/28/20 09:33 Dose: 125 mls/hr Documented by: MATTHEW Cosigned by: CHARLES Potassium Chloride 40 meq/ (Dextrose/Sodium Chloride) 1,020 mls @ 84 mls/hr IV CONT [facility] Last Admin: 10/31/20 00:34 Dose: 84 mls/hr Documented by: LEONARDO Cosigned by: ELVIN Infusion: 10/31/20 00:34 Dose: 84 mls/hr Documented by: LEONARDO Cosigned by: ELVIN Admin: 10/30/20 21:55 Dose: 84 mls/hr Documented by: BROOKE Cosigned by: PURVI Ketorolac Tromethamine (Ketorolac 60 Mg/2 Ml Vial) 15 mg IV NOW ONE Stop: 10/25/20 22:32 Last Admin: 10/25/20 22:37 Dose: 15 mg Documented by: CHIDI Lisinopril (Lisinopril 10 Mg Tablet) 10 mg PO DAILY [facility] Last Admin: 10/31/20 09:31 Dose: 10 mg Documented by: Admin: 10/30/20 13:16 Dose: 10 mg Documented by: Admin: 10/29/20 08:31 Dose: 10 mg Documented by: Admin: 10/28/20 09:34 Dose: 10 mg Documented by: MATTHEW Lorazepam (Lorazepam 2 Mg/Ml Inj) 0.5 mg IV Q6HR PRN PRN Reason: Anxiety Last Admin: 10/31/20 01:25 Dose: 0.5 mg Documented by: Admin: 10/30/20 00:25 Dose: 0.5 mg Documented by: Admin: 10/26/20 22:34 Dose: 0.5 mg Documented by: ASYA Metoprolol Succinate (Metoprolol Er 25 Mg Tablet) 12.5 mg PO DAILY [facility] Last Admin: 10/31/20 09:35 Dose: 12.5 mg Documented by: Admin: 10/30/20 13:16 Dose: 12.5 mg Documented by: Admin: 10/29/20 08:28 Dose: 12.5 mg Documented by: Admin: 10/28/20 09:34 Dose: 12.5 mg Documented by: MATTHEW Metoprolol Tartrate (Metoprolol Tartrate 5 Mg/5 Ml Inj) 5 mg IV Q6H [facility] Last Admin: 10/28/20 02:17 Dose: 5 mg Documented by: Admin: 10/27/20 20:11 Dose: 5 mg Documented by: Admin: 10/27/20 14:53 Dose: 5 mg Documented by: Admin: 10/27/20 08:51 Dose: 5 mg Documented by: MATTHEW Morphine Sulfate (Morphine 2 Mg/Ml Inj) 2 mg IV Q4HR PRN PRN Reason: Pain, Moderate (4-6) Last Admin: 10/26/20 02:04 Dose: 2 mg Documented by: HOLLAND Naloxone HCl (Naloxone 0.4 Mg/Ml Vial) 0.2 mg IV Q2MIN PRN PRN Reason: Opiate Reversal Nicotine (Nicotine 14 Patch) 14 mg TOP DAILY [facility] Last Admin: 10/31/20 09:34 Dose: 14 mg Documented by: Admin: 10/30/20 13:16 Dose: 14 mg Documented by: Admin: 10/29/20 08:33 Dose: 14 mg Documented by: Admin: 10/28/20 09:34 Dose: 14 mg Documented by: Admin: 10/27/20 08:52 Dose: 14 mg Documented by: MATTHEW Ondansetron HCl (Ondansetron 4 Mg/2 Ml Inj) 4 mg IV NOW ONE Stop: 10/25/20 16:39 Last Admin: 10/25/20 16:43 Dose: 4 mg Documented by: KENY Ondansetron HCl (Ondansetron 4 Mg/2 Ml Inj) 4 mg IV Q8HR PRN PRN Reason: Nausea And Vomiting Pantoprazole Sodium (Pantoprazole 20 Mg Tablet) 20 mg PO 0600 [facility] Last Admin: 10/26/20 06:44 Dose: Not Given Documented by: HOLLAND Pantoprazole Sodium (Pantoprazole 40 Mg Vial) 20 mg IV DAILY [facility] Last Admin: 10/31/20 09:36 Dose: 20 mg Documented by: Admin: 10/30/20 13:16 Dose: 20 mg Documented by: Admin: 10/29/20 08:33 Dose: 20 mg Documented by: Admin: 10/28/20 09:35 Dose: 20 mg Documented by: Admin: 10/27/20 08:53 Dose: 20 mg Documented by: Admin: 10/26/20 09:21 Dose: 20 mg Documented by: MATTHEW Vital Signs Vital signs: Vital Signs - 8 hr 10/25/20 19:31 10/25/20 19:45 10/25/20 20:00 Temperature 98.2 F Pulse Rate 75 88 85 Respiratory Rate 16 21 17 Blood Pressure 131/65 115/57 L 96/59 L Pulse Oximetry 99 99 10/25/20 20:44 10/25/20 21:29 10/25/20 21:52 Temperature 99.7 F H Pulse Rate 87 87 86 Respiratory Rate 20 23 16 Blood Pressure 143/65 H 128/60 123/59 L Pulse Oximetry 95 93 94 MDM - Abdominal Pain <Pipe Fox DO - Last Filed: 11/01/20 21:46> Lab Data Result diagrams: 10/30/20 04:56 10/30/20 04:56 Labs: Lab Results 10/25/20 10/25/20 10/25/20 Range/Units 15:42 15:45 15:45 WBC 14.7 H (4.5-11.0) X10^3/uL RBC 5.02 (4.0-5.2) X10^6/uL Hgb 15.7 (12.0-16.0) g/dL Hct 46.9 H (36-46) % MCV 93.5 (80-100) fL MCH 31.2 (26-34) PG MCHC 33.4 (30-36) % RDW 14.7 (11.6-14.8) % Plt Count 215 (150-400) X10^3/uL Neut % (Auto) 55.0 (50-75) % Lymph % (Auto) 37.7 (25-40) % [place] % (Auto) 4.9 (3-14) % Eos % (Auto) 1.7 L (2-4) % Baso % (Auto) 0.7 (0-2) % Neut # (Auto) 8100 H (7407-8987) /uL Lymph # (Auto) 5500 H (6998-5707) /uL [place] # (Auto) 700 (0-900) /uL Eos # (Auto) 200 (0-450) /uL Baso # (Auto) 100 (0-100) /uL PT 11.3 (10.1-12.7) SECONDS INR 1.0 (0.9-1.3) Sodium (137-145) mmol/L Potassium (3.4-5.1) mmol/L Chloride (98-107) mmol/L Carbon Dioxide (22-32) mmol/L BUN (7-17) mg/dL Creatinine (0.52-1.04) mg/dL Estimated GFR (>60) mL/min BUN/Creatinine Ratio (6-22) Glucose (80-110) mg/dL Lactate (0.7-2.1) mmol/L Calcium (8.4-10.2) mg/dL Total Bilirubin (0.2-1.3) mg/dL AST (14-36) IU/L ALT (<35) IU/L Alkaline Phosphatase (38-126) U/L Total Creatine Kinase (30-135) U/L CK-MB (CK-2) CK-MB (CK-2) Rel Index Troponin I (0.01-0.034) ng/mL Total Protein (6.3-8.2) g/dL Albumin (3.5-5.0) g/dL Globulin (1.7-4.1) g/dL Albumin/Globulin Ratio (1.0-2.8) Procalcitonin (<0.5) ng/mL Urine Color Urine Appearance Urine pH (4.5-8.0) Ur Specific [place] (1.000-1.035) Urine Protein (Negative) Urine Glucose (UA) (Negative) g/dL Urine Ketones (NEGATIVE) Urine Occult Blood (Negative) Urine Nitrate (Negative) Urine Bilirubin (NEGATIVE) Urine Urobilinogen (0.2) E.U./dL Ur Leukocyte Esterase (NEGATIVE) Urine RBC (0-5/HPF) Urine WBC (0-5/HPF) Amorphous Sediment Urine Bacteria (None) Ur Culture Indicated? SARS-CoV-2 (PCR) Negative (Negative) 10/25/20 10/25/20 10/25/20 Range/Units 15:45 15:45 15:48 WBC (4.5-11.0) X10^3/uL RBC (4.0-5.2) X10^6/uL Hgb (12.0-16.0) g/dL Hct (36-46) % MCV (80-100) fL MCH (26-34) PG MCHC (30-36) % RDW (11.6-14.8) % Plt Count (150-400) X10^3/uL Neut % (Auto) (50-75) % Lymph % (Auto) (25-40) % [place] % (Auto) (3-14) % Eos % (Auto) (2-4) % Baso % (Auto) (0-2) % Neut # (Auto) (2426-4373) /uL Lymph # (Auto) (9875-9633) /uL [place] # (Auto) (0-900) /uL Eos # (Auto) (0-450) /uL Baso # (Auto) (0-100) /uL PT (10.1-12.7) SECONDS INR (0.9-1.3) Sodium 134 L (137-145) mmol/L Potassium 3.1 L (3.4-5.1) mmol/L Chloride 101 (98-107) mmol/L Carbon Dioxide 27 (22-32) mmol/L BUN 25 H (7-17) mg/dL Creatinine 1.19 H (0.52-1.04) mg/dL Estimated GFR 43.9 L (>60) mL/min BUN/Creatinine Ratio 21.0 (6-22) Glucose 146 H (80-110) mg/dL Lactate 3.5 H (0.7-2.1) mmol/L Calcium 8.9 (8.4-10.2) mg/dL Total Bilirubin 0.8 (0.2-1.3) mg/dL AST 40 H (14-36) IU/L ALT 16 (<35) IU/L Alkaline Phosphatase 247 H (38-126) U/L Total Creatine Kinase 59 (30-135) U/L CK-MB (CK-2) TNP CK-MB (CK-2) Rel Index TNP Troponin I < 0.012 (0.01-0.034) ng/mL Total Protein 6.6 (6.3-8.2) g/dL Albumin 3.7 (3.5-5.0) g/dL Globulin 2.9 (1.7-4.1) g/dL Albumin/Globulin Ratio 1.3 (1.0-2.8) Procalcitonin 0.05 (<0.5) ng/mL Urine Color Yellow Urine Appearance Clear Urine pH 6.5 (4.5-8.0) Ur Specific [place] 1.010 (1.000-1.035) Urine Protein Negative (Negative) Urine Glucose (UA) Negative (Negative) g/dL Urine Ketones Negative (NEGATIVE) Urine Occult Blood Trace-lysed (Negative) Urine Nitrate Negative (Negative) Urine Bilirubin Negative (NEGATIVE) Urine Urobilinogen 0.2 (0.2) E.U./dL Ur Leukocyte Esterase Negative (NEGATIVE) Urine RBC 1-5/hpf (0-5/HPF) Urine WBC None seen (0-5/HPF) Amorphous Sediment 1+ Urine Bacteria None seen (None) Ur Culture Indicated? Cult not indicated SARS-CoV-2 (PCR) (Negative) 10/25/20 10/25/20 Range/Units 19:14 19:14 WBC (4.5-11.0) X10^3/uL RBC (4.0-5.2) X10^6/uL Hgb (12.0-16.0) g/dL Hct (36-46) % MCV (80-100) fL MCH (26-34) PG MCHC (30-36) % RDW (11.6-14.8) % Plt Count (150-400) X10^3/uL Neut % (Auto) (50-75) % Lymph % (Auto) (25-40) % [place] % (Auto) (3-14) % Eos % (Auto) (2-4) % Baso % (Auto) (0-2) % Neut # (Auto) (6571-0126) /uL Lymph # (Auto) (2259-4714) /uL [place] # (Auto) (0-900) /uL Eos # (Auto) (0-450) /uL Baso # (Auto) (0-100) /uL PT (10.1-12.7) SECONDS INR (0.9-1.3) Sodium 135 L (137-145) mmol/L Potassium 3.6 (3.4-5.1) mmol/L Chloride 107 (98-107) mmol/L Carbon Dioxide 25 (22-32) mmol/L BUN 24 H (7-17) mg/dL Creatinine 0.94 (0.52-1.04) mg/dL Estimated GFR 57.6 L (>60) mL/min BUN/Creatinine Ratio 25.5 H (6-22) Glucose 128 H (80-110) mg/dL Lactate 2.5 H (0.7-2.1) mmol/L Calcium 8.0 L (8.4-10.2) mg/dL Total Bilirubin 0.5 (0.2-1.3) mg/dL AST 32 (14-36) IU/L ALT 14 (<35) IU/L Alkaline Phosphatase 257 H (38-126) U/L Total Creatine Kinase (30-135) U/L CK-MB (CK-2) CK-MB (CK-2) Rel Index Troponin I (0.01-0.034) ng/mL Total Protein 5.5 L (6.3-8.2) g/dL Albumin 3.0 L (3.5-5.0) g/dL Globulin 2.5 (1.7-4.1) g/dL Albumin/Globulin Ratio 1.2 (1.0-2.8) Procalcitonin (<0.5) ng/mL Urine Color Urine Appearance Urine pH (4.5-8.0) Ur Specific [place] (1.000-1.035) Urine Protein (Negative) Urine Glucose (UA) (Negative) g/dL Urine Ketones (NEGATIVE) Urine Occult Blood (Negative) Urine Nitrate (Negative) Urine Bilirubin (NEGATIVE) Urine Urobilinogen (0.2) E.U./dL Ur Leukocyte Esterase (NEGATIVE) Urine RBC (0-5/HPF) Urine WBC (0-5/HPF) Amorphous Sediment Urine Bacteria (None) Ur Culture Indicated? SARS-CoV-2 (PCR) (Negative) <Adri Cohen MD - Last Filed: 10/26/20 03:29> Medical Records Attestation: I reviewed the patient's medical records. Lab Data Attestation: I reviewed the patient's lab results. Labs: Lab Results 10/25/20 10/25/20 10/25/20 Range/Units 15:42 15:45 15:45 WBC 14.7 H (4.5-11.0) X10^3/uL RBC 5.02 (4.0-5.2) X10^6/uL Hgb 15.7 (12.0-16.0) g/dL Hct 46.9 H (36-46) % MCV 93.5 (80-100) fL MCH 31.2 (26-34) PG MCHC 33.4 (30-36) % RDW 14.7 (11.6-14.8) % Plt Count 215 (150-400) X10^3/uL Neut % (Auto) 55.0 (50-75) % Lymph % (Auto) 37.7 (25-40) % [place] % (Auto) 4.9 (3-14) % Eos % (Auto) 1.7 L (2-4) % Baso % (Auto) 0.7 (0-2) % Neut # (Auto) 8100 H (0954-1547) /uL Lymph # (Auto) 5500 H (1827-3651) /uL [place] # (Auto) 700 (0-900) /uL Eos # (Auto) 200 (0-450) /uL Baso # (Auto) 100 (0-100) /uL PT 11.3 (10.1-12.7) SECONDS INR 1.0 (0.9-1.3) Sodium (137-145) mmol/L Potassium (3.4-5.1) mmol/L Chloride (98-107) mmol/L Carbon Dioxide (22-32) mmol/L BUN (7-17) mg/dL Creatinine (0.52-1.04) mg/dL Estimated GFR (>60) mL/min BUN/Creatinine Ratio (6-22) Glucose (80-110) mg/dL Lactate (0.7-2.1) mmol/L Calcium (8.4-10.2) mg/dL Total Bilirubin (0.2-1.3) mg/dL AST (14-36) IU/L ALT (<35) IU/L Alkaline Phosphatase (38-126) U/L Total Creatine Kinase (30-135) U/L CK-MB (CK-2) CK-MB (CK-2) Rel Index Troponin I (0.01-0.034) ng/mL Total Protein (6.3-8.2) g/dL Albumin (3.5-5.0) g/dL Globulin (1.7-4.1) g/dL Albumin/Globulin Ratio (1.0-2.8) Procalcitonin (<0.5) ng/mL Urine Color Urine Appearance Urine pH (4.5-8.0) Ur Specific [place] (1.000-1.035) Urine Protein (Negative) Urine Glucose (UA) (Negative) g/dL Urine Ketones (NEGATIVE) Urine Occult Blood (Negative) Urine Nitrate (Negative) Urine Bilirubin (NEGATIVE) Urine Urobilinogen (0.2) E.U./dL Ur Leukocyte Esterase (NEGATIVE) Urine RBC (0-5/HPF) Urine WBC (0-5/HPF) Amorphous Sediment Urine Bacteria (None) Ur Culture Indicated? SARS-CoV-2 (PCR) Negative (Negative) 10/25/20 10/25/20 10/25/20 Range/Units 15:45 15:45 15:48 WBC (4.5-11.0) X10^3/uL RBC (4.0-5.2) X10^6/uL Hgb (12.0-16.0) g/dL Hct (36-46) % MCV (80-100) fL MCH (26-34) PG MCHC (30-36) % RDW (11.6-14.8) % Plt Count (150-400) X10^3/uL Neut % (Auto) (50-75) % Lymph % (Auto) (25-40) % [place] % (Auto) (3-14) % Eos % (Auto) (2-4) % Baso % (Auto) (0-2) % Neut # (Auto) (8022-9922) /uL Lymph # (Auto) (6634-9473) /uL [place] # (Auto) (0-900) /uL Eos # (Auto) (0-450) /uL Baso # (Auto) (0-100) /uL PT (10.1-12.7) SECONDS INR (0.9-1.3) Sodium 134 L (137-145) mmol/L Potassium 3.1 L (3.4-5.1) mmol/L Chloride 101 (98-107) mmol/L Carbon Dioxide 27 (22-32) mmol/L BUN 25 H (7-17) mg/dL Creatinine 1.19 H (0.52-1.04) mg/dL Estimated GFR 43.9 L (>60) mL/min BUN/Creatinine Ratio 21.0 (6-22) Glucose 146 H (80-110) mg/dL Lactate 3.5 H (0.7-2.1) mmol/L Calcium 8.9 (8.4-10.2) mg/dL Total Bilirubin 0.8 (0.2-1.3) mg/dL AST 40 H (14-36) IU/L ALT 16 (<35) IU/L Alkaline Phosphatase 247 H (38-126) U/L Total Creatine Kinase 59 (30-135) U/L CK-MB (CK-2) TNP CK-MB (CK-2) Rel Index TNP Troponin I < 0.012 (0.01-0.034) ng/mL Total Protein 6.6 (6.3-8.2) g/dL Albumin 3.7 (3.5-5.0) g/dL Globulin 2.9 (1.7-4.1) g/dL Albumin/Globulin Ratio 1.3 (1.0-2.8) Procalcitonin 0.05 (<0.5) ng/mL Urine Color Yellow Urine Appearance Clear Urine pH 6.5 (4.5-8.0) Ur Specific [place] 1.010 (1.000-1.035) Urine Protein Negative (Negative) Urine Glucose (UA) Negative (Negative) g/dL Urine Ketones Negative (NEGATIVE) Urine Occult Blood Trace-lysed (Negative) Urine Nitrate Negative (Negative) Urine Bilirubin Negative (NEGATIVE) Urine Urobilinogen 0.2 (0.2) E.U./dL Ur Leukocyte Esterase Negative (NEGATIVE) Urine RBC 1-5/hpf (0-5/HPF) Urine WBC None seen (0-5/HPF) Amorphous Sediment 1+ Urine Bacteria None seen (None) Ur Culture Indicated? Cult not indicated SARS-CoV-2 (PCR) (Negative) 10/25/20 10/25/20 Range/Units 19:14 19:14 WBC (4.5-11.0) X10^3/uL RBC (4.0-5.2) X10^6/uL Hgb (12.0-16.0) g/dL Hct (36-46) % MCV (80-100) fL MCH (26-34) PG MCHC (30-36) % RDW (11.6-14.8) % Plt Count (150-400) X10^3/uL Neut % (Auto) (50-75) % Lymph % (Auto) (25-40) % [place] % (Auto) (3-14) % Eos % (Auto) (2-4) % Baso % (Auto) (0-2) % Neut # (Auto) (7160-4445) /uL Lymph # (Auto) (1814-3894) /uL [place] # (Auto) (0-900) /uL Eos # (Auto) (0-450) /uL Baso # (Auto) (0-100) /uL PT (10.1-12.7) SECONDS INR (0.9-1.3) Sodium 135 L (137-145) mmol/L Potassium 3.6 (3.4-5.1) mmol/L Chloride 107 (98-107) mmol/L Carbon Dioxide 25 (22-32) mmol/L BUN 24 H (7-17) mg/dL Creatinine 0.94 (0.52-1.04) mg/dL Estimated GFR 57.6 L (>60) mL/min BUN/Creatinine Ratio 25.5 H (6-22) Glucose 128 H (80-110) mg/dL Lactate 2.5 H (0.7-2.1) mmol/L Calcium 8.0 L (8.4-10.2) mg/dL Total Bilirubin 0.5 (0.2-1.3) mg/dL AST 32 (14-36) IU/L ALT 14 (<35) IU/L Alkaline Phosphatase 257 H (38-126) U/L Total Creatine Kinase (30-135) U/L CK-MB (CK-2) CK-MB (CK-2) Rel Index Troponin I (0.01-0.034) ng/mL Total Protein 5.5 L (6.3-8.2) g/dL Albumin 3.0 L (3.5-5.0) g/dL Globulin 2.5 (1.7-4.1) g/dL Albumin/Globulin Ratio 1.2 (1.0-2.8) Procalcitonin (<0.5) ng/mL Urine Color Urine Appearance Urine pH (4.5-8.0) Ur Specific [place] (1.000-1.035) Urine Protein (Negative) Urine Glucose (UA) (Negative) g/dL Urine Ketones (NEGATIVE) Urine Occult Blood (Negative) Urine Nitrate (Negative) Urine Bilirubin (NEGATIVE) Urine Urobilinogen (0.2) E.U./dL Ur Leukocyte Esterase (NEGATIVE) Urine RBC (0-5/HPF) Urine WBC (0-5/HPF) Amorphous Sediment Urine Bacteria (None) Ur Culture Indicated? SARS-CoV-2 (PCR) (Negative) Imaging Data CT scan - abdomen/pelvis: Radiologist's Impression: FINDINGS: Image quality: Excellent. CHEST: Lungs and pleura: The lungs have centrilobular emphysematous changes. Pneumatocele is a are seen in the left upper lobe and right upper lobe. No acute air space opacities. No pleural effusions or pneumothorax. Central and peripheral airways are patent and normal in caliber. Mediastinum: Heart size is normal. No pericardial effusion. No mediastinal adenopathy by size criteria. The aorta has atherosclerosis with no aneurysmal dilatation. Esophagus is normal in caliber. No hiatal hernia. Bones and chest wall: No suspicious bony lesions. No vertebral body compression fractures. No axillary or supraclavicular adenopathy by size criteria. 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 The right thyroid lobe is normal . ABDOMEN: Solid organs: Liver: The liver has no mass or intrahepatic biliary ductal dilatation. The portal vein and hepatic veins are patent. Biliary: The gallbladder is distended but has no gallstones, pericholecystic fluid, gallbladder wall thickening, or surrounding inflammatory change. Pancreas: The pancreas has no mass or ductal dilatation. There is no surrounding inflammation. Spleen: Normal size. There are no masses. Adrenals: No hypertrophy or nodules. Kidneys: No obstructive calculus or hydronephrosis. No solid mass. There is a 1.5 centimeter cyst of the left upper pole. Bowel: The distal esophagus and stomach are normal. The large bowel demonstrates fluid throughout. There is a focal area of wall thickening and narrowing in the left colon possibly a stricture. However there is fluid distension distally as well. The small bowel has a normal caliber proximally with mild fluid distension distally. There is mild ascites. Wall thickening and surrounding inflammation is noted in the splenic flexure and left colon. Nodes and vessels: No retroperitoneal or mesenteric adenopathy by size criteria. The aorta has atherosclerosis with no aneurysmal dilatation. Abdominal wall: No abdominal wall mass or hernia. PELVIS: Genitourinary: The bladder has no wall thickening or mass. No bladder calcifications. Miscellaneous: Small fat containing inguinal hernias. Bones and abdominal wall: Degenerative changes with no focal abnormality. No vertebral body compression fractures. IMPRESSION: 1. Fluid in the entire large bowel with focal areas of wall thickening. Findings are most consistent with colitis. A distal large bowel obstruction or impaction is also a possibility. 2. Focal area of circumferential wall thickening in the left colon. This could be a focal area of peristalsis given other findings, however recommend colonoscopy upon clinical improvement. 3. Centrilobular emphysema. Dictated by: Roberto Bowens M.D. on 10/25/2020 at 20:32 Chest x-ray: Radiologist's Impression: FINDINGS: Surgical changes and devices: A left chest wall pacer/defibrillator is seen. Lungs and pleura: Lungs are clear. No pleural effusions or pneumothorax. Mediastinum: Mediastinal contours appear normal. Heart size is normal. The aorta has atherosclerotic calcifications. Bones and chest wall: No suspicious bony lesions. Overlying soft tissues appear unremarkable. IMPRESSION: No acute cardiopulmonary abnormality. Dictated by: Roberto Bowens M.D. on 10/25/2020 at 16:07 Abdominal x-ray: Radiologist's Impression: FINDINGS: Surgical changes and devices: None. Bowel: Bowel gas pattern is normal. Soft tissues: No suspicious abdominal calcifications. Visualized solid organ contours appear normal in size. Bones: No suspicious bony lesions. IMPRESSION: A source of severe abdominal pain is not found. Pacing device with dual chamber leads is partially visualized. Is noted. Dictated by: Hung Gunderson M.D. on 10/25/2020 at 16:03 [facility] Narrative Medical decision making narrative: 80-year-old woman with a history of ischemic colitis presented complaining of severe abdominal pain and no bowel movements with significantly distended abdomen. She became more unstable with significant hypotension in early part of her arm urgency room stay. She was aggressively fluid resuscitated with Levaquin running for a number of hours but able to be successfully weaned off with stable blood pressures. She received ceftriaxone and metronidazole. Due to CT maintenance issues her CT scan was slightly delayed however her initial x-ray did suggest small-bowel obstruction. Dr. Ford, general surgeon was contacted early in the course of her emergency room visit and was immediately available for patient care throughout her stay in the emergency department. Eventually CT scan was obtained that did not show perforation, free air, intra-abdominal abscess and did show significant bowel obstruction with possibility of colitis entertained. NG tube was placed with significant difficulty with large volumes of gastric fluid draining. She was having large volumes of just liquid stool and CT scan s howed significant solid stool bolus in the rectum. Dr. Ford with able to do a manual disimpaction in the emergency department and the large volumes of liquid stool has slowed significantly. At this point, she needs to be admitted to the medicine service for small-bowel obstruction. She is maintaining blood pressures, airway and heart rate is stable. She does not need ICU care at this point. Dr. Ford will consult. Her primary care physician is Rebecca Perez so she is Admitted to the service of Prasanna Perez who is on-call for [facility]. Holding orders are written. She is much more comfortable with slight sedation with NG tube in place blood pressure is stable, heart rate is at 85 and she is safe for transfer to the floor <Adri Cohen MD - Last Filed: 10/26/20 03:29> Critical Care Time Critical Care Time: Yes Total Critical Care Time: 47 Attestation: Critical care time is separate from other billable procedures. This critical care time includes consultation with family and other consulting doctors, review of records, and interpretation of data from labs, EKGs and imaging as well as managements of severe hypotension with IV vasopressors required, uncertain diagnosis with multiple clinical possibilities. Discharge Plan Departure Patient Disposition: Admitted As Inpatient Clinical Impression: Acute hypotension, Colitis Abdominal pain Qualifiers: Abdominal location: generalized Qualified Code(s): R10.84 - Generalized abdominal pain Admit Date/Time: 10/25/20 21:53 Admit Provider: Eduard Perez
[2020-10-25 16:04] LABS: Prothrombin Time 11.3 SECONDS (10.1-12.7)
[2020-10-25 16:09] LABS: Alanine Aminotransferase 16 IU/L (<35); Albumin 3.7 g/dL (3.5-5.0); Albumin Globulin Ratio 1.3 (1.0-2.8); Alkaline Phosphatase 247 U/L (38-126); Aspartate Aminotransferase 40 IU/L (14-36); Bilirubin Total 0.8 mg/dL (0.2-1.3); Blood Urea Nitrogen 25 mg/dL (7-17); Calcium 8.9 mg/dL (8.4-10.2); Carbon Dioxide 27 mmol/L (22-32); Chloride 101 mmol/L (98-107); Creatine Kinase 59 U/L (30-135); Estimated Glomerular Filt Rate 43.9 mL/min (>60); Globulin 2.9 g/dL (1.7-4.1); Glucose 146 mg/dL (80-110); Potassium 3.1 mmol/L (3.4-5.1); Sodium 134 mmol/L (137-145); Total Protein 6.6 g/dL (6.3-8.2)
[2020-10-25 16:10] LABS: Lactate (Lactic Acid) 3.5 mmol/L (0.7-2.1)
[2020-10-25 16:10] LABS: Bacteria Urine None Seen; WBC Urine None Seen (0-5/HPF)
[2020-10-25 16:11] LABS: Appearance Urine UA CLEAR; Bilirubin Urine UA NEGATIVE (NEGATIVE); Color Urine UA YELLOW; Glucose Urine UA NEGATIVE (Negative); Ketones Urine UA NEGATIVE (NEGATIVE); Leukocyte Esterase Urine UA NEGATIVE (NEGATIVE); Nitrite Urine UA NEGATIVE (Negative); Occult Blood Urine UA TRACE-LYSED (Negative); Protein Urine UA NEGATIVE (Negative); Urobilinogen Urine UA 0.2 E.U./dL (0.2)
[2020-10-25 16:12] LABS: HEMOLYSIS 104 (0-50)
[2020-10-25 16:12] LABS: COVID19 -Nasal RAPID Negative (Negative)
[2020-10-25 16:13] LABS: pH Urine UA 6.5 (4.5-8.0)
[2020-10-25 16:21] LABS: Troponin I < 0.012 ng/mL (0.01-0.034)
[2020-10-25 16:23] LABS: Amorphous Sediment Urine 1+; Culture Indicated Urine Cult Not Indicated; RBC Urine 1-5/HPF (0-5/HPF)
[2020-10-25] MEDS: SODIUM CHLORIDE 0.9% 1,000 ML 125 ML IV (16:23)
[2020-10-25] MEDS: LACTATED RINGERS 1,700 ML 566.667 ML IV (16:23)
[2020-10-25 16:26] LABS: Procalcitonin 0.05 ng/mL (<0.5)
[2020-10-25] MEDS: CEFTRIAXONE 1 GM/50 ML FROZ.PIGGY IV (16:37)
--- NOTE | 2020-10-25 16:41 | DI.CT.S_ITS ---
PROCEDURE: CT CHEST ABD PEL W CON INDICATIONS: severe abdominal pain, septic TECHNIQUE: After the administration of intravenous contrast, 5 mm thick sections acquired from the lung apices to the symphysis. 2.5 mm thick coronal and sagittal reformats were acquired. Additional 7 mm thick coronal maximum intensity projection (MIP) reformats acquired through the lungs. Optional 10-minute delayed imaging may be performed from the kidneys to the bladder. For radiation dose reduction, the following was used: automated exposure control, adjustment of mA and/or kV according to patient size. COMPARISON: None. FINDINGS: Image quality: Excellent. CHEST: Lungs and pleura: The lungs have centrilobular emphysematous changes. Pneumatocele is a are seen in the left upper lobe and right upper lobe. No acute air space opacities. No pleural effusions or pneumothorax. Central and peripheral airways are patent and normal in caliber. Mediastinum: Heart size is normal. No pericardial effusion. No mediastinal adenopathy by size criteria. The aorta has atherosclerosis with no aneurysmal dilatation. Esophagus is normal in caliber. No hiatal hernia. Bones and chest wall: No suspicious bony lesions. No vertebral body compression fractures. No axillary or supraclavicular adenopathy by size criteria. 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 The right thyroid lobe is normal . ABDOMEN: Solid organs: Liver: The liver has no mass or intrahepatic biliary ductal dilatation. The portal vein and hepatic veins are patent. Biliary: The gallbladder is distended but has no gallstones, pericholecystic fluid, gallbladder wall thickening, or surrounding inflammatory change. Pancreas: The pancreas has no mass or ductal dilatation. There is no surrounding inflammation. Spleen: Normal size. There are no masses. Adrenals: No hypertrophy or nodules. Kidneys: No obstructive calculus or hydronephrosis. No solid mass. There is a 1.5 centimeter cyst of the left upper pole. Bowel: The distal esophagus and stomach are normal. The large bowel demonstrates fluid throughout. There is a focal area of wall thickening and narrowing in the left colon possibly a stricture. However there is fluid distension distally as well. The small bowel has a normal caliber proximally with mild fluid distension distally. There is mild ascites. Wall thickening and surrounding inflammation is noted in the splenic flexure and left colon. Nodes and vessels: No retroperitoneal or mesenteric adenopathy by size criteria. The aorta has atherosclerosis with no aneurysmal dilatation. Abdominal wall: No abdominal wall mass or hernia. PELVIS: Genitourinary: The bladder has no wall thickening or mass. No bladder calcifications. Miscellaneous: Small fat containing inguinal hernias. Bones and abdominal wall: Degenerative changes with no focal abnormality. No vertebral body compression fractures. IMPRESSION: 1. Fluid in the entire large bowel with focal areas of wall thickening. Findings are most consistent with colitis. A distal large bowel obstruction or impaction is also a possibility. 2. Focal area of circumferential wall thickening in the left colon. This could be a focal area of peristalsis given other findings, however recommend colonoscopy upon clinical improvement. 3. Centrilobular emphysema. Dictated by: Roberto Bowens M.D. on 10/25/2020 at 20:32 Approved by: Roberto Bowens M.D. on 10/25/2020 at 20:45
[2020-10-25] MEDS: HYDROMORPHONE 0.5 MG INJ IV ×2 (16:43→17:58)
[2020-10-25] MEDS: ONDANSETRON 4 MG/2 ML INJ IV (16:43)
[2020-10-25] MEDS: metroNIDAZOLE 500 MG/100 ML PIGGYBACK 100 MG IV (16:49)
--- NOTE | 2020-10-25 17:26 | PC.NURSE ---
Noted decrease in urine output w/ increased concentration of urine (dr simpson). Dr. Fox aware.
[2020-10-25 17:52] LABS: Reflexed Lactate in 2 Hours Y
--- NOTE | 2020-10-25 19:17 | PC.NURSE ---
Received report from CHARI Vital. pt resting in bed. NAD. BP 130's systolic. Levophed remains paused. LR infusing per sepsis order. AAOx3, HR 79 NSR, abd soft, tender all over worst in LLQ. awaiting CT. technical difficulties with scanner. Lab in to redraw. needs met at this time.
[2020-10-25 19:31] LABS: Lactate 2HR (Lactic Acid Rflx) 2.5 mmol/L (0.7-2.1)
[2020-10-25 19:32] LABS: Alanine Aminotransferase 14 IU/L (<35); Albumin Globulin Ratio 1.2 (1.0-2.8); Alkaline Phosphatase 257 U/L (38-126); Aspartate Aminotransferase 32 IU/L (14-36); BUN Creatinine Ratio 25.5 (6-22); Bilirubin Total 0.5 mg/dL (0.2-1.3); Blood Urea Nitrogen 24 mg/dL (7-17); Carbon Dioxide 25 mmol/L (22-32); Chloride 107 mmol/L (98-107); Estimated Glomerular Filt Rate 57.6 mL/min (>60); Globulin 2.5 g/dL (1.7-4.1); Glucose 128 mg/dL (80-110); HEMOLYSIS 24 (0-50); Potassium 3.6 mmol/L (3.4-5.1); Sodium 135 mmol/L (137-145); Total Protein 5.5 g/dL (6.3-8.2)
--- NOTE | 2020-10-25 19:38 | PC.NURSE ---
Pt unsure of home medications. Reconciled med list incomplete at this time.
[2020-10-25] MEDS: LIDOCAINE 1% (PF) 2 ML (20:45)
[2020-10-25] MEDS: fentaNYL 100 MCG/2 ML INJ (21:08)
[2020-10-25] MEDS: MIDAZOLAM 2 MG/2 ML VIAL (21:08)
--- NOTE | 2020-10-25 21:15 | P.CONS_ITS ---
History of Present Illness Consult details Date Patient Seen: 10/25/20 Time Patient Seen: 21:15 Chief complaint: Septic Reason for consult: Acute abdominal pain Narrative: Patient is a woman who has had pelvic surgery in the distant past. She developed severe onset of abdominal pain earlier today and came to the emergency room. She is not sure she has ever had pain like this before. The pain is principally left-sided but her whole abdomen hurts she said. The ER physician reported to me that when she arrived she was hypotensive and was begun on fluids and a Levophed drip which was ultimately weaned off when she was resuscitated. She is not really the best of historian at this time she has been sedated to place an NG tube and is not communicative at all. Thus most of the information that will follow comes from her chart though the above is from her. Meds Home Medications and Allergies Home Medications Medication Instructions Recorded Confirmed Type lorazepam [Ativan] 1 mg PO DAILY PRN #0 07/23/11 10/25/20 History metoprolol succinate 12.5 mg PO DAILY 10/25/20 10/25/20 History Allergies Allergy/AdvReac Type Severity Reaction Status Date / Time latex [LATEX] Allergy Mild Verified 10/25/20 16:21 amoxicillin [AMOXICILLIN] Allergy Unknown Verified 10/25/20 16:21 levofloxacin [LEVOFLOXACIN] Allergy Unknown Verified 10/25/20 16:21 Review of Systems Review of Systems Narrative: Unable to obtain at this time. Will review with her later when she is more alert or in the morning. Exam Vital Signs (past 8 hours): - 10/25/20 15:38 10/25/20 15:41 10/25/20 15:43 Temperature 94 F L Pulse Rate 62 82 105 H Respiratory Rate 22 33 H 35 H Blood Pressure 171/88 H 120/58 L Pulse Oximetry 90 L 92 93 10/25/20 15:45 10/25/20 15:50 10/25/20 15:55 Temperature Pulse Rate 113 H 79 87 Respiratory Rate 19 28 H 20 Blood Pressure 72/43 L 105/54 L 69/41 L Pulse Oximetry 83 L 99 97 10/25/20 16:00 10/25/20 16:05 10/25/20 16:10 Temperature 96.8 F L 97.3 F L Pulse Rate 76 76 74 Respiratory Rate 17 28 H 33 H Blood Pressure 93/49 L 77/53 L 108/73 Pulse Oximetry 96 99 99 10/25/20 16:15 10/25/20 16:17 10/25/20 16:20 Temperature Pulse Rate 74 76 68 Respiratory Rate 24 30 H 24 Blood Pressure 115/58 L 94/49 L 115/54 L Pulse Oximetry 99 99 100 10/25/20 16:25 10/25/20 16:30 10/25/20 16:35 Temperature Pulse Rate 64 70 68 Respiratory Rate 24 25 H 29 H Blood Pressure 107/54 L 118/55 L 115/58 L Pulse Oximetry 99 100 99 10/25/20 16:40 10/25/20 16:45 10/25/20 16:50 Temperature Pulse Rate 68 70 71 Respiratory Rate 24 21 16 Blood Pressure 114/58 L 114/54 L 97/49 L Pulse Oximetry 100 100 99 10/25/20 16:55 10/25/20 17:05 10/25/20 17:12 Temperature 96.8 F L Pulse Rate 67 64 64 Respiratory Rate 14 14 14 Blood Pressure 97/51 L 100/57 L 101/51 L Pulse Oximetry 99 99 100 10/25/20 17:20 10/25/20 17:30 10/25/20 17:40 Temperature 97.0 F L Pulse Rate 66 64 65 Respiratory Rate 16 12 24 Blood Pressure 99/51 L 100/50 L 105/56 L Pulse Oximetry 99 100 100 10/25/20 17:54 10/25/20 18:20 10/25/20 18:35 Temperature Pulse Rate 69 72 67 Respiratory Rate 24 15 18 Blood Pressure 118/58 L 106/55 L 142/60 H Pulse Oximetry 99 100 100 10/25/20 19:03 10/25/20 19:27 10/25/20 19:31 Temperature 97.9 F Pulse Rate 76 85 75 Respiratory Rate 16 16 16 Blood Pressure 114/55 L 124/58 L 131/65 Pulse Oximetry 99 99 99 10/25/20 19:45 10/25/20 20:00 10/25/20 20:44 Temperature 98.2 F Pulse Rate 88 85 87 Respiratory Rate 21 17 20 Blood Pressure 115/57 L 96/59 L 143/65 H Pulse Oximetry 99 95 Oxygen Delivery Method Room Air Oxygen Flow Rate 2 Narrative Exam Narrative: Had been moaning with a diffusely tender abdomen. There was guarding there was difficult to tell if it was involuntary or voluntary. After resuscitation she was less tender and clearly stated that it was mostly her left side that was painful. I do not appreciate any ventral hernias. Midline abdominal scar noted. No liver spleen enlargement was appreciated. Lungs shallow breathing. Heart distant heart tones no murmurs or gallops appreciated. Skin is PALe. Thinned without open lesion. Objective Imaging CT scan - abdomen: My impression: Distended colon. Distended stomach filled with fluid. No free air. No obvious obstruction of the colon though there were discrete places of narrowing suggesting inflammation. Possible diverticulitis. Also there was a large amount of stool in the rectal vault. Possible fecal impaction. No ventral hernias. Radiologist's impression: Similar to the above. Labs Result Diagrams: 10/25/20 15:45 10/25/20 19:14 Labs: Laboratory Results - last 24 hr 10/25/20 10/25/20 10/25/20 15:42 15:45 15:45 WBC 14.7 H RBC 5.02 Hgb 15.7 Hct 46.9 H MCV 93.5 MCH 31.2 MCHC 33.4 RDW 14.7 Plt Count 215 Neut % (Auto) 55.0 Lymph % (Auto) 37.7 [place] % (Auto) 4.9 Eos % (Auto) 1.7 L Baso % (Auto) 0.7 Neut # (Auto) 8100 H Lymph # (Auto) 5500 H [place] # (Auto) 700 Eos # (Auto) 200 Baso # (Auto) 100 PT 11.3 INR 1.0 Sodium Potassium Chloride Carbon Dioxide BUN Creatinine Estimated GFR BUN/Creatinine Ratio Glucose Lactate Calcium Total Bilirubin AST ALT Alkaline Phosphatase Total Creatine Kinase CK-MB (CK-2) CK-MB (CK-2) Rel Index Troponin I Total Protein Albumin Globulin Albumin/Globulin Ratio Procalcitonin Urine Color Urine Appearance Urine pH Ur Specific [place] Urine Protein Urine Glucose (UA) Urine Ketones Urine Occult Blood Urine Nitrate Urine Bilirubin Urine Urobilinogen Ur Leukocyte Esterase Urine RBC Urine WBC Amorphous Sediment Urine Bacteria Ur Culture Indicated? SARS-CoV-2 (PCR) Negative 10/25/20 10/25/20 10/25/20 15:45 15:45 15:48 WBC RBC Hgb Hct MCV MCH MCHC RDW Plt Count Neut % (Auto) Lymph % (Auto) [place] % (Auto) Eos % (Auto) Baso % (Auto) Neut # (Auto) Lymph # (Auto) [place] # (Auto) Eos # (Auto) Baso # (Auto) PT INR Sodium 134 L Potassium 3.1 L Chloride 101 Carbon Dioxide 27 BUN 25 H Creatinine 1.19 H Estimated GFR 43.9 L BUN/Creatinine Ratio 21.0 Glucose 146 H Lactate 3.5 H Calcium 8.9 Total Bilirubin 0.8 AST 40 H ALT 16 Alkaline Phosphatase 247 H Total Creatine Kinase 59 CK-MB (CK-2) TNP CK-MB (CK-2) Rel Index TNP Troponin I < 0.012 Total Protein 6.6 Albumin 3.7 Globulin 2.9 Albumin/Globulin Ratio 1.3 Procalcitonin 0.05 Urine Color Yellow Urine Appearance Clear Urine pH 6.5 Ur Specific [place] 1.010 Urine Protein Negative Urine Glucose (UA) Negative Urine Ketones Negative Urine Occult Blood Trace-lysed Urine Nitrate Negative Urine Bilirubin Negative Urine Urobilinogen 0.2 Ur Leukocyte Esterase Negative Urine RBC 1-5/hpf Urine WBC None seen Amorphous Sediment 1+ Urine Bacteria None seen Ur Culture Indicated? Cult not indicated SARS-CoV-2 (PCR) 10/25/20 10/25/20 19:14 19:14 WBC RBC Hgb Hct MCV MCH MCHC RDW Plt Count Neut % (Auto) Lymph % (Auto) [place] % (Auto) Eos % (Auto) Baso % (Auto) Neut # (Auto) Lymph # (Auto) [place] # (Auto) Eos # (Auto) Baso # (Auto) PT INR Sodium 135 L Potassium 3.6 Chloride 107 Carbon Dioxide 25 BUN 24 H Creatinine 0.94 Estimated GFR 57.6 L BUN/Creatinine Ratio 25.5 H Glucose 128 H Lactate 2.5 H Calcium 8.0 L Total Bilirubin 0.5 AST 32 ALT 14 Alkaline Phosphatase 257 H Total Creatine Kinase CK-MB (CK-2) CK-MB (CK-2) Rel Index Troponin I Total Protein 5.5 L Albumin 3.0 L Globulin 2.5 Albumin/Globulin Ratio 1.2 Procalcitonin Urine Color Urine Appearance Urine pH Ur Specific [place] Urine Protein Urine Glucose (UA) Urine Ketones Urine Occult Blood Urine Nitrate Urine Bilirubin Urine Urobilinogen Ur Leukocyte Esterase Urine RBC Urine WBC Amorphous Sediment Urine Bacteria Ur Culture Indicated? SARS-CoV-2 (PCR) Assessment & Plan Assessment & Plan narrative: Patient had a very large diarrheal stool between my initial evaluation of her an after her CT scan. While she was sedated for placement of the NG tube I disimpacted her rectum and additional liquid stool poured out. White blood cell count is mildly elevated but the differential is normal. Patient's procalcitonin is absolutely normal. She was hypotensive which probably explains her elevated lactate which is now improved with hydration. Recommend treatment of the patient as though she has diverticulitis(consider carbapenems or Rocephin with Flagyl though there may be cross reactivity given her history of an amoxicillin allergy.. Stool for study. NG to suction. Obs erve. Will re-evaluate in the morning.
--- NOTE | 2020-10-25 21:28 | PC.NURSE ---
Dr Ford in to assess pt. Verbal order for NG tube. Pt premedicated with Lidocaine I.N. Difficult insertion. Dr Cohen to bedside. Pt given 50mcg fentanyl and 2mg Versed to help calm for insertion. Successfully placed 18F NG in R nare by Dr Cohen. Connected to LIS with about 300 output at this time. Pt with copious amounts of brown watery diarrhea. Complete bed change. Specimen sent to lab for GI panel. Resting in bed on RA at 94%. Daughter at bedside. No IVF running at this time. Pt appears more comfortable.
[2020-10-25] MEDS: KETOROLAC 60 MG/2 ML VIAL 15 MG IV (22:37)
[2020-10-26] VITALS (11 sets, daily range): BP systolic 114–155; BP diastolic 56–72; PULSE 88–96; RESP 15–18; TEMP 36.4–37.1; O2SAT 94–96
[2020-10-26] MEDS: metroNIDAZOLE 500 MG/100 ML PIGGYBACK 100 MG IV ×3 (01:37→16:06)
[2020-10-26] MEDS: MORPHINE 2 MG/ML INJ IV (02:04)
[2020-10-26 02:17] LABS: Bacteria Urine None Seen; WBC Urine None Seen (0-5/HPF)
[2020-10-26 02:18] LABS: Bilirubin Urine UA NEGATIVE (NEGATIVE); Glucose Urine UA TRACE g/dL (Negative); Ketones Urine UA NEGATIVE (NEGATIVE); Leukocyte Esterase Urine UA NEGATIVE (NEGATIVE); Nitrite Urine UA NEGATIVE (Negative); Occult Blood Urine UA 1+ (Negative); Protein Urine UA TRACE (Negative); Urobilinogen Urine UA 0.2 E.U./dL (0.2)
[2020-10-26 02:27] LABS: Appearance Urine UA Clear; Color Urine UA Amber
[2020-10-26 02:45] LABS: Culture Indicated Urine Cult Not Indicated; RBC Urine 1-5/HPF (0-5/HPF)
--- NOTE | 2020-10-26 04:23 | PC.ADMIT ---
[email or web address] Admission Note: Pt alert to self, birthdate and location. Pt unable to fully or adequately explain situation to this RN. Pt in no apparent cardiovascular or respiratory distress. Significant skin issues including scattered and prominent bruising from a fall, blanchable redness on sacrum, a 1 cm tear on sacral dimple, a <1 cm tear on perenium, and irritation with a possible lesion between labia minora. Pt had a bowel movement during admission and again during skin check. Pt reports tenderness in lower half of abdomen only. Pt requires frequent reminders as to what her lines and tubes are (NG, henry cath, and PIVF) and to not agitate them. IV abx and IV pain medication administered and pt resting comfortably. The patient,Apple Juarez,80 y/o, was given written information regarding hospital policies, unit procedures and contact persons. Patient's smoking status: Current every day smoker. Vital Signs - 8 hr 10/25/20 20:44 10/25/20 21:29 10/25/20 21:52 Temperature 99.7 F H Pulse Rate 87 87 86 Respiratory Rate 20 23 16 Blood Pressure 143/65 H 128/60 123/59 L Pulse Oximetry 95 93 94 10/25/20 22:28 10/25/20 22:37 10/25/20 23:43 Temperature 100.2 F H 100.2 F H 100.6 F H Pulse Rate 86 Respiratory Rate 23 Blood Pressure 151/70 H Pulse Oximetry 94 10/25/20 23:44 10/26/20 03:44 Temperature 98.8 F Pulse Rate 96 H Respiratory Rate 18 Blood Pressure 132/74 Pulse Oximetry 94 94
[2020-10-26 05:21] LABS: Hematocrit 42.3 % (36-46); Mean Corpuscular HGB Conc 33.2 % (30-36); Mean Corpuscular Hemoglobin 31.2 PG (26-34); Mean Corpuscular Volume 93.9 fL (80-100); Platelet Count 161 X10^3/uL (150-400); Red Cell Distribution Width 14.8 % (11.6-14.8)
[2020-10-26 05:24] LABS: BUN Creatinine Ratio 23.1 (6-22); Blood Urea Nitrogen 31 mg/dL (7-17); Calcium 8.2 mg/dL (8.4-10.2); Carbon Dioxide 26 mmol/L (22-32); Chloride 107 mmol/L (98-107); Estimated Glomerular Filt Rate 38.3 mL/min (>60); Glucose 131 mg/dL (80-110); HEMOLYSIS 22 (0-50); Potassium 4.6 mmol/L (3.4-5.1); Sodium 135 mmol/L (137-145)
[2020-10-26 05:25] LABS: Add Manual Diff / Slide Review YES
[2020-10-26 06:00] LABS: Erythrocyte Sedimentation Rate 3 MM/HR (0-20)
[2020-10-26] MEDS: SODIUM CHLORIDE 0.9% 1,000 ML 125 ML IV (06:02)
[2020-10-26 06:41] LABS: Anisocytosis 1+; Neutrophils Absolute Manual 16020 /uL (3000-5900); Total Cells Counted 100
--- NOTE | 2020-10-26 06:53 | PC.NURSE ---
NG tube output 0. [place]o output 500 mL tea colored.
--- NOTE | 2020-10-26 08:28 | DI.RAD.S_ITS ---
PROCEDURE: XR ACUTE ABDOMEN SERIES INDICATIONS: Small-bowel obstruction TECHNIQUE: One view chest and two views of the abdomen were acquired. COMPARISON: [facility], CT, CT CHEST ABD PEL W CON, 10/25/2020, 20:11. [facility], CR, XR ABDOMEN 1V, 10/25/2020, 15:48. FINDINGS: Surgical changes and devices: The tip of the gastric tube can be seen overlying the distal stomach. A pacer device is seen. A [place] catheter is seen. Chest: Lungs are clear, yet hyperexpanded. Heart size is normal. Atherosclerotic calcification of the aortic arch is noted. No pleural effusions. No pneumoperitoneum. Abdomen: Prominent loops of small bowel are seen, which measure up to 2.5 cm. On the left lateral decubitus image, no jessica, pathologic air-fluid levels can be seen. No significant colonic abnormality can be seen. No suspicious calcifications. Atherosclerotic calcification is noted. Visualized solid organ contours appear normal. Bones: No suspicious bony lesions. Age-appropriate bony degenerative changes are seen. IMPRESSION: The tip of the gastric tube is seen overlying the distal stomach. Mildly prominent loops of small bowel can be seen, without frankly dilated loops or pathologic air-fluid levels. Dictated by: Armand Rosenberg M.D. on 10/26/2020 at 8:30 Approved by: Armand Rosenberg M.D. on 10/26/2020 at 8:32
--- NOTE | 2020-10-26 08:34 | PM.HP.1 ---
History of Present Illness History of Present Illness Date Patient Seen: 10/26/20 Time Patient Seen: 08:35 Date of Onset of Symptoms: 10/25/20 Chief complaint: Septic Narrative: Patient is a 80-year-old white female patient of Dr. Lane who is a poor historian and presented to the emergency room with increasing abdominal pain. Patient has a history of constipation and has had constipation for most of she can remember. She uses MiraLax intermittently but has not been using it lately. She was doing fine until yesterday afternoon when she started having increasing abdominal pain. She feels like before that she was not having any issues. Apparently she laid down on the floor and then threw up. She was then brought to the emergency room. At the presentation to the emergency room she had a blood pressure in her 50s. She was started on Levophed IV fluids. Due to the fact that we were unable to get CT scan she was unable to be transferred due to her being unstable. She was seen by Dr. Ford who did not feel as if she had a definitive perforation which was the concern. She had multiple stools in the emergency room and then prior to being sent to the CT scan in being sedated Dr. Ford was able to remove a large bolus of stool which she then had significant diarrhea afterwards. She has had 1 episode since she has been here in the hospital. She is feeling somewhat better. No nausea or vomiting today. But does have an NG tube. She would like that to be gone. She has no other significant new changes no chest pain. No complaints. Patient has a history of ischemic colitis back in 2016. She has no other significant changes or complaints. Patient is a daily smoker. No other complaints. 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 No cardiac disease. 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, lives with daughter, Emilee Habits daily smoker Patient History Medical History Ischemic colitis Pacemaker Surgical History H/O: hysterectomy History of bilateral oophorectomies Family & Social History Social History: household members children Prior Living Arrangements House Safety & Behavioral: Feels Safe in Current Yes Environment Been Physically Hurt or No Threatened By a Person Suicidal Ideation Description None Tobacco & Substance use: Tobacco type cigarettes Smoking Status Current every day smoker Smoking packs per day 0.5 alcohol intake never Substance Use Type does not use Meds Home Medications and Allergies Home Medications Medication Instructions Recorded Confirmed Type lorazepam [Ativan] 1 mg PO BEDTIME PRN #0 07/23/11 10/26/20 History metoprolol succinate 12.5 mg PO DAILY 10/25/20 10/25/20 History acyclovir 400 mg PO BID 10/26/20 10/26/20 History bupropion HCl [Wellbutrin SR] 150 mg PO BID 10/26/20 10/26/20 History clobetasol 1 applic TOPICAL BID 10/26/20 10/26/20 History clonazepam 1 mg PO BEDTIME PRN 10/26/20 10/26/20 History clopidogrel 75 mg PO DAILY 10/26/20 10/26/20 History cyproheptadine 4 mg PO BID 10/26/20 10/26/20 History hydrocodone-acetaminophen 1 tab PO Q4H PRN 10/26/20 10/26/20 History lidocaine [Lidoderm] 1 patch TOPICAL DAILY 10/26/20 10/26/20 History lisinopril-hydrochlorothiazide 1 tab PO DAILY 10/26/20 10/26/20 History mometasone 1 applic TOPICAL BID 10/26/20 10/26/20 History oxybutynin chloride 5 mg PO DAILY 10/26/20 10/26/20 History Allergies Allergy/AdvReac Type Severity Reaction Status Date / Time latex [LATEX] Allergy Mild Verified 10/25/20 16:21 amoxicillin [AMOXICILLIN] Allergy Unknown Verified 10/25/20 16:21 levofloxacin [LEVOFLOXACIN] Allergy Unknown Verified 10/25/20 16:21 niacin Allergy Unknown Verified 10/26/20 08:16 sulfamethoxazole Allergy Unknown Verified 10/26/20 08:16 [From Bactrim] tobramycin Allergy Unknown Verified 10/26/20 08:16 trimethoprim [From Bactrim] Allergy Unknown Verified 10/26/20 08:16 varenicline [From Chantix] Allergy Unknown Verified 10/26/20 08:16 Review of Systems Review of Systems ROS: Yes All systems reviewed with the patient and are negative except as otherwise documented Exam Vital Signs (past 8 hours): - 10/26/20 03:44 10/26/20 05:01 10/26/20 07:53 Temperature 98.4 F Pulse Rate 89 Respiratory Rate 18 Blood Pressure 127/59 L Pulse Oximetry 94 94 94 10/26/20 08:00 Temperature 98.8 F Pulse Rate 90 Respiratory Rate 17 Blood Pressure 136/56 L Pulse Oximetry 94 Oxygen Delivery Method Room Air Oxygen Flow Rate 0 Narrative Exam Narrative: Alert fatigued appearing female in no acute distress. Mucous membranes mildly dry. Neck supple without adenopathy. Lungs are clear. Heart regular rate and rhythm. Abdomen is mildly distended tympanic bowel sounds diffuse tenderness no rebound guarding or other changes. Extremities without cyanosis clubbing edema. Neurologic exam is nonfocal. Psychologically somewhat subdued and quiet but otherwise unremarkable Objective Labs Result Diagrams: 10/26/20 04:40 10/26/20 04:40 Labs: Laboratory Results - last 24 hr 10/25/20 10/25/20 10/25/20 15:42 15:45 15:45 WBC 14.7 H RBC 5.02 Hgb 15.7 Hct 46.9 H MCV 93.5 MCH 31.2 MCHC 33.4 RDW 14.7 Plt Count 215 Neut % (Auto) 55.0 Lymph % (Auto) 37.7 [place] % (Auto) 4.9 Eos % (Auto) 1.7 L Baso % (Auto) 0.7 Neut # (Auto) 8100 H Lymph # (Auto) 5500 H [place] # (Auto) 700 Eos # (Auto) 200 Baso # (Auto) 100 Total Counted Seg Neutrophils % Band Neutrophils % Lymphocytes % (Manual) Monocytes % (Manual) Metamyelocytes % Neutrophils # (Manual) RBC Morphology Anisocytosis ESR PT 11.3 INR 1.0 Sodium Potassium Chloride Carbon Dioxide BUN Creatinine Estimated GFR BUN/Creatinine Ratio Glucose Lactate Calcium Total Bilirubin AST ALT Alkaline Phosphatase Total Creatine Kinase CK-MB (CK-2) CK-MB (CK-2) Rel Index Troponin I C-Reactive Protein Total Protein Albumin Globulin Albumin/Globulin Ratio Procalcitonin Urine Color Urine Appearance Urine pH Ur Specific [place] Urine Protein Urine Glucose (UA) Urine Ketones Urine Occult Blood Urine Nitrate Urine Bilirubin Urine Urobilinogen Ur Leukocyte Esterase Urine RBC Urine WBC Amorphous Sediment Urine Bacteria Ur Culture Indicated? SARS-CoV-2 (PCR) Negative 10/25/20 10/25/20 10/25/20 15:45 15:45 15:48 WBC RBC Hgb Hct MCV MCH MCHC RDW Plt Count Neut % (Auto) Lymph % (Auto) [place] % (Auto) Eos % (Auto) Baso % (Auto) Neut # (Auto) Lymph # (Auto) [place] # (Auto) Eos # (Auto) Baso # (Auto) Total Counted Seg Neutrophils % Band Neutrophils % Lymphocytes % (Manual) Monocytes % (Manual) Metamyelocytes % Neutrophils # (Manual) RBC Morphology Anisocytosis ESR PT INR Sodium 134 L Potassium 3.1 L Chloride 101 Carbon Dioxide 27 BUN 25 H Creatinine 1.19 H Estimated GFR 43.9 L BUN/Creatinine Ratio 21.0 Glucose 146 H Lactate 3.5 H Calcium 8.9 Total Bilirubin 0.8 AST 40 H ALT 16 Alkaline Phosphatase 247 H Total Creatine Kinase 59 CK-MB (CK-2) TNP CK-MB (CK-2) Rel Index TNP Troponin I < 0.012 C-Reactive Protein Total Protein 6.6 Albumin 3.7 Globulin 2.9 Albumin/Globulin Ratio 1.3 Procalcitonin 0.05 Urine Color Yellow Urine Appearance Clear Urine pH 6.5 Ur Specific [place] 1.010 Urine Protein Negative Urine Glucose (UA) Negative Urine Ketones Negative Urine Occult Blood Trace-lysed Urine Nitrate Negative Urine Bilirubin Negative Urine Urobilinogen 0.2 Ur Leukocyte Esterase Negative Urine RBC 1-5/hpf Urine WBC None seen Amorphous Sediment 1+ Urine Bacteria None seen Ur Culture Indicated? Cult not indicated SARS-CoV-2 (PCR) 10/25/20 10/25/20 10/26/20 19:14 19:14 01:30 WBC RBC Hgb Hct MCV MCH MCHC RDW Plt Count Neut % (Auto) Lymph % (Auto) [place] % (Auto) Eos % (Auto) Baso % (Auto) Neut # (Auto) Lymph # (Auto) [place] # (Auto) Eos # (Auto) Baso # (Auto) Total Counted Seg Neutrophils % Band Neutrophils % Lymphocytes % (Manual) Monocytes % (Manual) Metamyelocytes % Neutrophils # (Manual) RBC Morphology Anisocytosis ESR PT INR Sodium 135 L Potassium 3.6 Chloride 107 Carbon Dioxide 25 BUN 24 H Creatinine 0.94 Estimated GFR 57.6 L BUN/Creatinine Ratio 25.5 H Glucose 128 H Lactate 2.5 H Calcium 8.0 L Total Bilirubin 0.5 AST 32 ALT 14 Alkaline Phosphatase 257 H Total Creatine Kinase CK-MB (CK-2) CK-MB (CK-2) Rel Index Troponin I C-Reactive Protein Total Protein 5.5 L Albumin 3.0 L Globulin 2.5 Albumin/Globulin Ratio 1.2 Procalcitonin Urine Color [place] Urine Appearance Clear Urine pH 5.0 Ur Specific [place] 1.010 Urine Protein Trace H Urine Glucose (UA) Trace H Urine Ketones Negative Urine Occult Blood 1+ H Urine Nitrate Negative Urine Bilirubin Negative Urine Urobilinogen 0.2 Ur Leukocyte Esterase Negative Urine RBC 1-5/hpf Urine WBC None seen Amorphous Sediment Urine Bacteria None seen Ur Culture Indicated? Cult not indicated SARS-CoV-2 (PCR) 10/26/20 10/26/20 10/26/20 04:40 04:40 04:40 WBC 18.0 H RBC 4.50 Hgb 14.0 Hct 42.3 MCV 93.9 MCH 31.2 MCHC 33.2 RDW 14.8 Plt Count 161 Neut % (Auto) Not Reportable Lymph % (Auto) Not Reportable [place] % (Auto) Not Reportable Eos % (Auto) Not Reportable Baso % (Auto) Not Reportable Neut # (Auto) Lymph # (Auto) Not Reportable [place] # (Auto) Not Reportable Eos # (Auto) Baso # (Auto) Not Reportable Total Counted 100 Seg Neutrophils % 76.0 H Band Neutrophils % 13.0 H Lymphocytes % (Manual) 5.0 L Monocytes % (Manual) 4.0 Metamyelocytes % 2.0 H Neutrophils # (Manual) 25662 H RBC Morphology See below Anisocytosis 1+ H ESR 3 PT INR Sodium Potassium Chloride Carbon Dioxide BUN Creatinine Estimated GFR BUN/Creatinine Ratio Glucose Lactate Calcium Total Bilirubin AST ALT Alkaline Phosphatase Total Creatine Kinase CK-MB (CK-2) CK-MB (CK-2) Rel Index Troponin I C-Reactive Protein 7.0 H Total Protein Albumin Globulin Albumin/Globulin Ratio Procalcitonin Urine Color Urine Appearance Urine pH Ur Specific [place] Urine Protein Urine Glucose (UA) Urine Ketones Urine Occult Blood Urine Nitrate Urine Bilirubin Urine Urobilinogen Ur Leukocyte Esterase Urine RBC Urine WBC Amorphous Sediment Urine Bacteria Ur Culture Indicated? SARS-CoV-2 (PCR) 10/26/20 04:40 WBC RBC Hgb Hct MCV MCH MCHC RDW Plt Count Neut % (Auto) Lymph % (Auto) [place] % (Auto) Eos % (Auto) Baso % (Auto) Neut # (Auto) Lymph # (Auto) [place] # (Auto) Eos # (Auto) Baso # (Auto) Total Counted Seg Neutrophils % Band Neutrophils % Lymphocytes % (Manual) Monocytes % (Manual) Metamyelocytes % Neutrophils # (Manual) RBC Morphology Anisocytosis ESR PT INR Sodium 135 L Potassium 4.6 Chloride 107 Carbon Dioxide 26 BUN 31 H Creatinine 1.34 H Estimated GFR 38.3 L BUN/Creatinine Ratio 23.1 H Glucose 131 H Lactate Calcium 8.2 L Total Bilirubin AST ALT Alkaline Phosphatase Total Creatine Kinase CK-MB (CK-2) CK-MB (CK-2) Rel Index Troponin I C-Reactive Protein Total Protein Albumin Globulin Albumin/Globulin Ratio Procalcitonin Urine Color Urine Appearance Urine pH Ur Specific [place] Urine Protein Urine Glucose (UA) Urine Ketones Urine Occult Blood Urine Nitrate Urine Bilirubin Urine Urobilinogen Ur Leukocyte Esterase Urine RBC Urine WBC Amorphous Sediment Urine Bacteria Ur Culture Indicated? SARS-CoV-2 (PCR) Assessment & Plan Assessment & Plan narrative: Abdominal pain. Possible small-bowel obstruction. Possible colitis by CT scan. White count is elevated at this time. On Rocephin and Flagyl. Should have good coverage. Allergic to quinolones. Appreciate surgical evaluation. Colitis possibility. Will check C diff. Patient has a history of ischemic colitis still possible. No evidence of bleeding. May need colonoscopy given CT scan results. Will have to see how she does over time. Certainly if white count is increasing will have to reassess. Will obtain flat plate of the abdomen and chest x-ray flat plate for small-bowel valuation and chest x-ray for NG tube placement. Re-evaluate with labs in a.m.. No change treatment at this time. NG management per Dr. Ford Acute on chronic renal failure. Patient was significant sepsis syndrome yesterday. Probably part of that. Seems to be more stable without at least her blood pressure is stable at this time. Will increase her fluids watch closely re-evaluate in a.m.. Output has been okay over the last 24 hours. Indwelling [place]. Will continue for now so we can watch output. Discontinue 1 where able. Sepsis syndrome. Patient with marked decrease in blood pressure yesterday renal failure and small-bowel obstruction. All probably related. Procalcitonin was negative. Patient blood pressure stabilized and she seems to be doing better. Will continue to manage. Blood cultures we followed. White count is elevated on antibiotics which should give us good coverage. No obvious source has been identified other than her abdominal pain. COPD. Breathing comfortably at this time. Will follow. Coronary artery disease. Patient with history of stent on Plavix will hold until we figure out her abdominal issue restarted as soon as we can. Anxiety. Patient with history. Has been on or as him at night. No other changes. Will follow. Chronic back pain. Seems to be stable at this time will follow. Code status. Patient sign pulsed in office DNR. Agrees that that is what she still wants. GI prophylaxis will be on Protonix. DVT prophylaxis on Lovenox. Disposition. This is going to be a moderately long course clearly have not obviously completely defined her abdominal problem does not appear to be surgical at this time. Probably more colitis. White count hopefully will be decreasing tomorrow but she still has moderate amount of abdominal pain I suspect this will be at least 3 or 4 days before things settle out Quality VTE Deep Vein Thrombosis/Pulmonary Embolism Present on Admission: No
--- NOTE | 2020-10-26 08:58 | CM.DANOTE ---
Addendum entered by Yohana Gay LPN 10/26/20 13:48: Met with pt, introduced self and role. Pt confirms she is . Patricia is . She lives in her own home with her daughter Zeinab (she is not well) living in the upstairs of the house. She has a cane and walker/WW. Has son Damon and his who live in the area but says they are not really able to help me. She and her daughter get Meals on Wheels. She has never had home health but is very much open to same. Dr. Perez anticipates that pt will need to be here a few days...DCP team will be following. Addendum entered by Yohana Gay LPN 10/26/20 09:11: Order for acute abdominal series is noted. Addendum entered by Yohana Gay LPN 10/26/20 09:01: Went to room to meet with pt. Pt is process of going to radiology for a chest x ray. NGT remains in place Dr. Perez has been here this morning to see pt but his H&P is not currently available. Dr. Grant saw pt last evening, dis-impacted stool and noted large gush of liquid stool. after this process. He recommending treating for clinical diverticulitis. Full dx and POC remain in process. Will plan to check in with pt later to confirms specifics of her living situation and her usual level of function. Original Note: Discharge Planning/Care Management DCP: assessment: case received, EMR reviewed. Pt is a 80 year old female who admitted last night to care of Dr. Perez. Consulting: [facility]: Dr. Princess Ford PCP: Rebecca Perez Payer: [facility] Adv. CM Discharge Assessment Start: 10/26/20 08:56 Freq: Status: Active Protocol: Document 10/26/20 08:57 ITV (Rec: 10/26/20 08:58 ITV [id number]) Discharge Planning Assessment Advance Directives? Yes History Provided By Medical Record Has Patient been admitted in last 30 No days? Prior Living Arrangements House Household Members children Review Status In Process
[2020-10-26] MEDS: ENOXAPARIN 40 MG/0.4 ML SYRINGE SUBCUT (09:21)
[2020-10-26] MEDS: PANTOPRAZOLE 40 MG VIAL 20 MG IV (09:21)
[2020-10-26] MEDS: SODIUM CHLORIDE 0.9% 1,000 ML 150 ML IV ×2 (13:50→21:38)
[2020-10-26] MEDS: CEFTRIAXONE 2 GM/50 ML FROZ.PIGGY IV (16:05)
--- NOTE | 2020-10-26 16:55 | DIET.PN ---
Dietary Progress Note Assessment: 80y F admitted for sepsis secondary to dehydration and fecal impaction referred to nutrition regarding reported recent weight loss. Per chart review pt shows -4.1% unintentional weight loss over past 2y, non-severe. Pt was manually disimpacted in ED leading to the release of stool burden. Pt reports chronic constipation with occasional use of Miralax. Pt currently c NG to lis which is uncomfortable for her. Surgeon reports treating pt per diverticulitis. Pt reports living in the lower level of her home, daughter lives upstairs but doesn't seem to be involved in care of pt. Pt receives Meals on Wheels five lunches per week. Pt reports food insecurity, barrier is someone to bring her groceries. Pt reports having times when she is hungry and no food in home. Pt doesn't particularly like the meals from [employer] but eats them. Pt dislikes ONS supplements like Ensure but she does enjoy yogurt with fresh blueberries which she has 3x/w and makes a fried egg maybe once per week. Pt was concerned the yogurt c blueberries caused her impaction. Pt reports drinking 1 cup coffee per day and reports drinking water daily, unable to quantify. HT: 162.5cm WT: 56.5kg UBW: 58.9kg BMI: 21.4 Labs: WBC 18.0 H, lactate 2.5 H, CRP 7 H Nutrition Diagnosis: inadequate fiber intake r/t food insecurity and nutrition related knowledge deficit aeb pt reports chronic constipation, intermittent laxative use, was manually disimpacted in ED, pt reports lack of food despite five [facility] deliveries/w, pt reports being financially able to purchase foods but homebound without assistance. Interventions: 1. [facility] pt receive home health services related to grocery shopping and simple meal prep in addition to her [facility] deliveries. 2. [facility] pt receive plain yogurt c fresh fruit daily while in hospital and upon d/c to support her gut health and fiber intake. Diet Order: NPO EER: 21g fiber daily Monitoring/Evaluations: diet advancement
--- NOTE | 2020-10-26 21:02 | P.PN_ITS ---
Subjective Subjective Date Patient Seen: 10/26/20 Time Patient Seen: 21:02 Interval history: Patient a little more alert tonight. Was sleeping. Has not complained of abdominal pain this evening to the nurse. Had 2 large bowel movements today. There was liquid. Overall she says her abdomen is still sore but feels better than yesterday. NG tube is bothering her throat a lot. Exam Vital Signs (past 8 hours): - 10/26/20 15:15 10/26/20 16:00 10/26/20 19:29 Temperature 98.5 F Pulse Rate 96 H Respiratory Rate 17 Blood Pressure 114/68 Pulse Oximetry 96 94 95 10/26/20 19:55 Temperature 97.6 F Pulse Rate 89 Respiratory Rate 15 Blood Pressure 155/72 H Pulse Oximetry 96 Oxygen Delivery Method Room Air Oxygen Flow Rate 0 Narrative Exam Narrative: Cooperative in no apparent distress. Lungs are clear. NG tube intact. Patient's abdomen is much softer than yesterday. No regarding. Still some tenderness however diffusely especially on the left side. Objective Labs Result Diagrams: 10/26/20 04:40 10/26/20 04:40 Labs: Laboratory Results - last 24 hr 10/26/20 10/26/20 10/26/20 01:30 04:40 04:40 WBC RBC Hgb Hct MCV MCH MCHC RDW Plt Count Neut % (Auto) Lymph % (Auto) [place] % (Auto) Eos % (Auto) Baso % (Auto) Lymph # (Auto) [place] # (Auto) Baso # (Auto) Total Counted Seg Neutrophils % Band Neutrophils % Lymphocytes % (Manual) Monocytes % (Manual) Metamyelocytes % Neutrophils # (Manual) RBC Morphology Anisocytosis ESR 3 Sodium Potassium Chloride Carbon Dioxide BUN Creatinine Estimated GFR BUN/Creatinine Ratio Glucose Calcium C-Reactive Protein 7.0 H Urine Color [place] Urine Appearance Clear Urine pH 5.0 Ur Specific [place] 1.010 Urine Protein Trace H Urine Glucose (UA) Trace H Urine Ketones Negative Urine Occult Blood 1+ H Urine Nitrate Negative Urine Bilirubin Negative Urine Urobilinogen 0.2 Ur Leukocyte Esterase Negative Urine RBC 1-5/hpf Urine WBC None seen Urine Bacteria None seen Ur Culture Indicated? Cult not indicated 10/26/20 10/26/20 04:40 04:40 WBC 18.0 H RBC 4.50 Hgb 14.0 Hct 42.3 MCV 93.9 MCH 31.2 MCHC 33.2 RDW 14.8 Plt Count 161 Neut % (Auto) Not Reportable Lymph % (Auto) Not Reportable [place] % (Auto) Not Reportable Eos % (Auto) Not Reportable Baso % (Auto) Not Reportable Lymph # (Auto) Not Reportable [place] # (Auto) Not Reportable Baso # (Auto) Not Reportable Total Counted 100 Seg Neutrophils % 76.0 H Band Neutrophils % 13.0 H Lymphocytes % (Manual) 5.0 L Monocytes % (Manual) 4.0 Metamyelocytes % 2.0 H Neutrophils # (Manual) 46434 H RBC Morphology See below Anisocytosis 1+ H ESR Sodium 135 L Potassium 4.6 Chloride 107 Carbon Dioxide 26 BUN 31 H Creatinine 1.34 H Estimated GFR 38.3 L BUN/Creatinine Ratio 23.1 H Glucose 131 H Calcium 8.2 L C-Reactive Protein Urine Color Urine Appearance Urine pH Ur Specific [place] Urine Protein Urine Glucose (UA) Urine Ketones Urine Occult Blood Urine Nitrate Urine Bilirubin Urine Urobilinogen Ur Leukocyte Esterase Urine RBC Urine WBC Urine Bacteria Ur Culture Indicated? [facility] Medical History Ischemic colitis Pacemaker Surgical History H/O: hysterectomy History of bilateral oophorectomies Social History household members: children Smoking Status: Current every day smoker alcohol intake: never substance use type: does not use Assessment & Plan Assessment & Plan narrative: White blood cell count is disturbing given the number of bands that are present. I am not certain if this is due to the fact she was hypotensive on pressors or this is an underlying pathology. I reviewed her x-rays and there is no free air. In fact the liquid in her intestine for the most part appears to have been evacuated. No stools had any longer in the pelvis after disimpaction. I suspect patient has ischemic colitis. Would recommend continuation of broad-spectrum antibiotics. It is possible this is diverticulitis or some other form of colitis. I have ordered cultures and C diff. a pair he GI panel is not available at this time. Quality VTE Deep Vein Thrombosis/Pulmonary Embolism Present on Admission: No
[2020-10-26] MEDS: LORazepam 2 MG/ML INJ 0.5 MG IV (22:34)
[2020-10-27] VITALS (12 sets, daily range): BP systolic 122–175; BP diastolic 63–82; PULSE 77–91; RESP 16–19; TEMP 36.2–37.2; O2SAT 93–99
[2020-10-27] MEDS: metroNIDAZOLE 500 MG/100 ML PIGGYBACK 100 MG IV ×3 (01:43→16:43)
[2020-10-27 05:09] LABS: Add Manual Diff / Slide Review NO; Basophils Absolute Auto 100 /uL (0-100); Basophils Percent Auto 0.4 % (0-2); Eosinophils Absolute Auto 0 /uL (0-450); Eosinophils Percent Auto 0.1 % (2-4); Hematocrit 32.6 % (36-46); Hemoglobin 10.9 g/dL (12.0-16.0); Lymphocytes Absolute Auto 1200 /uL (1100-4500); Lymphocytes Percent Auto 9.2 % (25-40); Mean Corpuscular HGB Conc 33.3 % (30-36); Mean Corpuscular Hemoglobin 31.1 PG (26-34); Mean Corpuscular Volume 93.5 fL (80-100); Monocytes Absolute Auto 1100 /uL (0-900); Monocytes Percent Auto 8.6 % (3-14); Neutrophils Absolute Auto 10200 /uL (1500-7000); Neutrophils Percent Auto 81.7 % (50-75); Platelet Count 119 X10^3/uL (150-400); Red Blood Cell Count 3.49 X10^6/uL (4.0-5.2); Red Cell Distribution Width 14.7 % (11.6-14.8); White Blood Cell Count 12.5 X10^3/uL (4.5-11.0)
[2020-10-27 05:29] LABS: Alanine Aminotransferase 10 IU/L (<35); Albumin 2.4 g/dL (3.5-5.0); Alkaline Phosphatase 112 U/L (38-126); Aspartate Aminotransferase 28 IU/L (14-36); Bilirubin Total 0.3 mg/dL (0.2-1.3); Blood Urea Nitrogen 24 mg/dL (7-17); Calcium 8.1 mg/dL (8.4-10.2); Carbon Dioxide 24 mmol/L (22-32); Chloride 114 mmol/L (98-107); Estimated Glomerular Filt Rate > 60.0 mL/min (>60); Globulin 2.3 g/dL (1.7-4.1); Glucose 96 mg/dL (80-110); Sodium 138 mmol/L (137-145); Total Protein 4.7 g/dL (6.3-8.2)
[2020-10-27] MEDS: SODIUM CHLORIDE 0.9% 1,000 ML 150 ML IV (05:49)
--- NOTE | 2020-10-27 08:27 | P.PN_ITS ---
Subjective Subjective Date Patient Seen: 10/27/20 Time Patient Seen: 08:28 Interval history: Patient feeling better this morning. Still having pain which she feels like it is reduced. She has had less diarrhea. Still having output from NG tube. Thinking maybe she should have some nicotine. Has no other significant new complaints or problems. Much brighter. Exam Vital Signs (past 8 hours): - 10/27/20 00:39 10/27/20 04:00 10/27/20 05:07 Temperature 97.8 F 97.2 F L Pulse Rate 90 91 H Respiratory Rate 16 16 Blood Pressure 122/63 141/72 H Pulse Oximetry 93 95 98 10/27/20 08:00 Temperature 97.8 F Pulse Rate 87 Respiratory Rate 19 Blood Pressure 155/76 H Pulse Oximetry 94 Oxygen Delivery Method Nasal Cannula Oxygen Flow Rate 2 Narrative Exam Narrative: Alert smiling female with NG tube in no acute distress. Neck supple without adenopathy. Lungs are clear. Heart regular rate and rhythm. Abdomen is soft positive bowel sounds. She still has pretty significant diffuse tenderness with no masses or other changes. Does have some slight rebound no guarding. Extremities without cyanosis clubbing edema. Objective Labs Result Diagrams: 10/27/20 04:45 10/27/20 04:45 Labs: Laboratory Results - last 24 hr 10/26/20 10/27/20 10/27/20 08:12 04:45 04:45 WBC 12.5 H RBC 3.49 L Hgb 10.9 L Hct 32.6 L MCV 93.5 MCH 31.1 MCHC 33.3 RDW 14.7 Plt Count 119 L Neut % (Auto) 81.7 H D Lymph % (Auto) 9.2 L D [place] % (Auto) 8.6 Eos % (Auto) 0.1 L Baso % (Auto) 0.4 Neut # (Auto) 93590 H Lymph # (Auto) 1200 [place] # (Auto) 1100 H Eos # (Auto) 0 Baso # (Auto) 100 Sodium 138 Potassium 3.0 L D Chloride 114 H Carbon Dioxide 24 BUN 24 H Creatinine 0.89 Estimated GFR > 60.0 BUN/Creatinine Ratio 27.0 H Glucose 96 Calcium 8.1 L Total Bilirubin 0.3 AST 28 ALT 10 Alkaline Phosphatase 112 D Total Protein 4.7 L Albumin 2.4 L Globulin 2.3 Albumin/Globulin Ratio 1.0 Ref Test (Refrig) See scanned report [facility] Medical History Ischemic colitis Pacemaker Surgical History H/O: hysterectomy History of bilateral oophorectomies Social History household members: children Smoking Status: Current every day smoker alcohol intake: never substance use type: does not use Assessment & Plan Assessment & Plan narrative: Abdominal pain. X-rays yesterday looks slightly better. Clinically overall she looks better today white count is down she still has significant abdominal discomfort. Etiology diverticulitis was seems unlikely possible ischemic bowel disease. Appreciate surgeon's input. Will let them manage NG tube. Certainly diarrhea is improved. Labs show negative C diff and other panel is negative. At this point given the intensity of her abdominal pain still I would think we will continue antibiotics and will follow. Hypokalemia. Will add to IV replacement and follow. Probably secondary to diarrhea and NG output. Anemia. Probably secondary to hydration. No evidence of bleeding that we can see. Will recheck in a.m.. Follow from there. Decision on further workup at that time. Indwelling [place]. Will continue for today. May be able to discontinue tomorrow fluid status seems stabilized. Sepsis syndrome. Blood pressure at this time seems to be stable. She is otherwise seems to be doing much better. And it appears as if were mostly out of the hoffman from that. No other changes. Fluid electrolyte nutrition. Should be okay with nutrition. Were going good decreased IV today output appears to be good but she is up a little bit on her weight and 1 over do or fluids. Will follow and continue at 1:20 a.m. 5 cc an hour. Re-evaluate in a.m.. Hypertension. Poorly controlled at this time as she improves. Will add IV metoprolol follow over the next 24 hours. Add back p.o. when we are able. COPD. Stable. Breathing comfortably no O2 requirement. Cigarette addiction. Discussed her need to stop but add nicotine. History of anxiety. Seems to be stable but will continue lorazepam as needed. Chronic back pain. No complaints today. Will follow. Code status DNR. GI prophylaxis on Protonix. DVT prophylaxis on Lovenox. Disposition. Patient is still in serious condition her abdomen is still not that much better. And certainly unclear exactly what is going on although were trending in the right direction. Appears to be more likely ischemic colitis which she has had previously. But trending positively. Will add physical therapy follow as above and re-evaluate in a.m.. Discussed with surgeon. As 45 minutes spent coordination care evaluation and floor care Quality VTE Deep Vein Thrombosis/Pulmonary Embolism Present on Admission: No
[2020-10-27] MEDS: METOPROLOL TARTRATE 5 MG/5 ML INJ IV ×3 (08:51→20:11)
[2020-10-27] MEDS: KCL 20 MEQ IN NS 1,000 ML 125 MEQ IV ×2 (08:51→20:12)
[2020-10-27] MEDS: NICOTINE 14 PATCH 14 MG TOP (08:52)
[2020-10-27] MEDS: ENOXAPARIN 40 MG/0.4 ML SYRINGE SUBCUT (08:52)
[2020-10-27] MEDS: PANTOPRAZOLE 40 MG VIAL 20 MG IV (08:53)
--- NOTE | 2020-10-27 10:35 | DI.RAD.S_ITS ---
PROCEDURE: XR ACUTE ABDOMEN SERIES INDICATIONS: Follow-up films. Possible ischemic colitis TECHNIQUE: One view chest and two views of the abdomen were acquired. COMPARISON: [facility], CT, CT CHEST ABD PEL W CON, 10/25/2020, 20:11. [facility], CR, XR ACUTE ABDOMEN SERIES, 10/26/2020, 8:58. FINDINGS: Surgical changes and devices: Nasogastric tube is in satisfactory position. Left-sided dual lead pacemaker leads are present. Urinary bladder catheter is present. Chest: Lungs are hyperinflated and there is scarring at the right axillary upper lobe region there are emphysematous changes present and right lower lung zone atelectatic changes. Heart size is normal. No pleural effusions. No pneumoperitoneum. Abdomen: Bowel gas pattern is normal. Nonobstructive gas pattern. No visible small or large bowel pneumatosis. Resolution of solid rectal stool mass seen on recent CT. No suspicious calcifications. Visualized solid organ contours appear normal. Heavy vascular calcification. Bones: No suspicious bony lesions. IMPRESSION: 1. Nonspecific, nonobstructive bowel gas pattern without visible rectal stool. 2. No evidence of bowel pneumatosis or pneumoperitoneum. 3. Hyperinflated lungs with emphysema. 4. Heavy vascular calcification. Dictated by: Lilo Collins M.D. on 10/27/2020 at 10:45 Approved by: Lilo Collins M.D. on 10/27/2020 at 10:51
--- NOTE | 2020-10-27 10:38 | PM.PN.1 ---
Subjective Subjective Date Patient Seen: 10/27/20 Time Patient Seen: 10:00 Interval history: Patient feels better than yesterday. Still having some abdominal pain. She says it is improved. Still passing gas and moving her bowels. Diarrhea has slowed. Exam Vital Signs (past 8 hours): - 10/27/20 04:00 10/27/20 05:07 10/27/20 08:00 Temperature 97.2 F L 97.8 F Pulse Rate 91 H 87 Respiratory Rate 16 19 Blood Pressure 141/72 H 155/76 H Pulse Oximetry 95 98 95 Oxygen Delivery Method Room Air Oxygen Flow Rate 0 Narrative Exam Narrative: Cooperative. Much more alert today. Lungs are clear to auscultation. No rales or rhonchi. Abdomen is much softer than yesterday or the day before. Still has the tenderness with compression and release. No guarding however. Not as distended. NG output has decreased. Objective Labs Result Diagrams: 10/27/20 04:45 10/27/20 04:45 Labs: Laboratory Results - last 24 hr 10/26/20 10/27/20 10/27/20 08:12 04:45 04:45 WBC 12.5 H RBC 3.49 L Hgb 10.9 L Hct 32.6 L MCV 93.5 MCH 31.1 MCHC 33.3 RDW 14.7 Plt Count 119 L Neut % (Auto) 81.7 H D Lymph % (Auto) 9.2 L D [place] % (Auto) 8.6 Eos % (Auto) 0.1 L Baso % (Auto) 0.4 Neut # (Auto) 11887 H Lymph # (Auto) 1200 [place] # (Auto) 1100 H Eos # (Auto) 0 Baso # (Auto) 100 Sodium 138 Potassium 3.0 L D Chloride 114 H Carbon Dioxide 24 BUN 24 H Creatinine 0.89 Estimated GFR > 60.0 BUN/Creatinine Ratio 27.0 H Glucose 96 Calcium 8.1 L Total Bilirubin 0.3 AST 28 ALT 10 Alkaline Phosphatase 112 D Total Protein 4.7 L Albumin 2.4 L Globulin 2.3 Albumin/Globulin Ratio 1.0 Ref Test (Refrig) See scanned report [facility] Medical History Ischemic colitis Pacemaker Surgical History H/O: hysterectomy History of bilateral oophorectomies Social History household members: children Smoking Status: Current every day smoker alcohol intake: never substance use type: does not use Assessment & Plan Assessment & Plan narrative: Patient's white blood cell count has decreased. Still has a preponderance of segs but not the large amount of bands that had been present yesterday. White blood cell count from down from 18 to 12. Abdominal pain continues to improve. Initial procalcitonin was normal. Will repeat. She has received additional doses now of antibiotics which is probably the reason for improvement. She also appears to have good urine output and so her perfusion is probably improved from initial. Overall were going in the right direction. I still think she has ischemic intestine. Given that her NG output is decreased and there was marked improvement in her x-rays yesterday I think we can safely remove her NG at this time. I would still keep her NPO. Recommend continuation of broad-spectrum antibiotics. X-rays ordered to follow her progress. Also to make sure there is no evidence of free air which I presently clinically doubt. Quality VTE Deep Vein Thrombosis/Pulmonary Embolism Present on Admission: No
--- NOTE | 2020-10-27 11:44 | PT.IIE ---
Current Diagnoses Noninfective gastroenteritis and colitis, unspecified (10/25/20) Surgical History (Last Reviewed 10/27/20 @ 10:41 by Christos Ford MD) H/O: hysterectomy History of bilateral oophorectomies Medical History (Last Reviewed 10/27/20 @ 10:41 by Christos Ford MD) Ischemic colitis Pacemaker Physical Therapy Inpatient Evaluation/Re-Eval M1 PT/OT-IP Prior Functional Status Start: 10/27/20 14:14 Freq: NEEDED Status: Active Protocol: Document 10/27/20 11:44 AB (Rec: 10/27/20 14:30 AB [id number]) Medical Review Prior Functional Status Medical History Reviewed Yes Communication able to make needs known Mobility and Gait pt stated that she is modified independent with all mobilities and ambulation using FWW Prior Functional Level (Other details) pt stated that she was still able to drive Social History Household Members children Living Arrangements House Number of Floors (Floors) Two Floors Number of Stairs To Enter/Railing? pt stays on main level of the house; has 8 steps with R rail ascending to enter Home Environment Standard Height Toilet,Tub/ Shower Home Equipment Hand Held Shower Additional Social History Comment pt has a very high bed and stated that she pulls on her blankets to get into the bed stated that her daughter that lives with her cannot assist her due to drinking issues has meals on wheels M2 PT-IP Current Condition Start: 10/27/20 14:14 Freq: NEEDED Status: Active Protocol: Document 10/27/20 11:44 AB (Rec: 10/27/20 14:30 AB [id number]) Physical Therapy Current Condition Current Condition Evaluation Date 10/27/20 Treatment Diagnosis ischemic colitis; difficulty in walking Onset Date 10/25/20 M3 PT-IP Subjective Start: 10/27/20 14:14 Freq: NEEDED Status: Active Protocol: Document 10/27/20 11:44 AB (Rec: 10/27/20 14:30 AB [id number]) Subjective Physical Therapy Visit Type Type Initial Evaluation Visit Start Time 11:44 Visit Stop Time 12:15 Total Visit Minutes 31 Number of WEEDER THINNER Visits 0 Therapy Pain Assessment Pain Present Pain Present Pain Reported Location tail bone Scale Used pain scale not stated Pain Management Techniques Distraction,Modification of Treatment,Re-positioning, Timing of Activity with Medications M4 PT-IP Mobility and Gait Start: 10/27/20 14:14 Freq: NEEDED Status: Active Protocol: Document 10/27/20 11:44 AB (Rec: 10/27/20 14:30 AB [id number]) PT-Bed Mobility Assessment Supine to Sit Supine to Sit Moderate Assistance,Head of Bed Elevated PT-Transfer Assessment Sit to and From Stand Sit to and from Stand Minimal Assistance,1 Person Assistance,Use of Upper Extremities Equipment Transfer Assistive Device Gait Belt,Front Wheeled Walker Orthotic/Prosthetic Devices or Brace: No Transfers Transfer Destination Chair Transfer Technique ambulated using FWW Transfer Ability Level of Assist Minimal Assistance,1 Person Assistance,Use of Upper Extremities Comments Mobility Comments stated that she has chronic back and neck issues. educated on log roll bed mobility and completed requiring mod A and cues. pt was able to sit on EOB CGA. completed sit to stand min A and cues and ambulated towards the chair using FWW min A. agreed to sit on chair but refused further ambulation. positioned on chair. call light and table placed within reach. Gait Assessment Gait Gait Assistance Required: Minimum Assistance Distance (Feet) 15 Able to Maintain Weight Bearing Status Yes During Gait Assistive Devices Assistive Device Gait Belt,Front Wheeled Walker Orthotic/Prosthetic Devices or Brace: No Gait Deviations General Gait Pattern Antalgic,Decreased Stride Length,Decreased Feet Clearance,Flexed Trunk,Narrow Based Gait,Step-to Gait Factors Limiting Gait Function Factors Limiting Gait Function Decreased Activity Tolerance, Decreased Strength,Difficulty Following Directions,Limited Range of Motion,Pain,Poor Balance,Poor Safety Awareness Comments Gait Comments presents with increase forward trunk leaning during standing and ambulation and pt stated that she has chronic back and h/o neck fracture PT-Balance Assessment Sitting Balance and Reactions Static Sitting Balance Ability Good Dynamic Sitting Balance Ability Fair Standing Balance and Reactions Static Standing Balance Ability Fair Dynamic Standing Balance Ability Fair Device Used FWW M5 PT-IP Objective Assessments Start: 10/27/20 14:14 Freq: NEEDED Status: Active Protocol: Document 10/27/20 11:44 AB (Rec: 10/27/20 14:30 AB [id number]) Orientation Orientation/Cognition Level of Alertness Alert Orientation Name,Place,Situation Safety Awareness Decreased Safety Awareness Memory Description Short Term Impaired Gross Range of Motion Lower Extremity ROM Assessment Within Functional Limits Strength Lower Extremity Strength Hip 4-/5 Knee 4-/5 Muscle Tone Muscle Tone WNL Yes M6 PT-IP Treatment Start: 10/27/20 14:14 Freq: NEEDED Status: Active Protocol: Document 10/27/20 11:44 AB (Rec: 10/27/20 14:30 AB [id number]) Physical Therapy Treatment Education Education Provided Safety M7 PT-IP Assessment and Plan Start: 10/27/20 14:14 Freq: NEEDED Status: Active Protocol: Document 10/27/20 11:44 AB (Rec: 10/27/20 14:30 AB [id number]) PT Summary Assessment and Plan Potential Rehabilitation Potential Fair Status of Condition at Evaluation Evolving Summary Impairments Pain,ROM,Strength,Balance, Coordination,Sensation,Tone, Cognition,Bed Mobility, Transfers,Gait,Activity Tolerance Assessment Summary pt requiring min to mod A with mobility and will not have any assistance at home. pt will need to be more independent than current level and will require SNF rehab at this time. Goals Bed Mobility Goal Standby Assistance Transfer Goal Standby Assistance,Front Wheeled Walker Gait Goal Standby Assistance,Front Wheel Walker Gait Distance 150 Other Goals up/down 8 steps R rail ascending SBA Days to Meet Goals 10 Frequency of Treatment Frequency Of Treatment Once a Day Treatment Plan Physical Therapy Treatment Plan Bed Mobility Training,Transfer Training,Gait Training, Therapeutic Exercise,Balance Retraining,Discharge Planning, Hot or Cold Pack,Neuromuscular Re-ed,Coordination Retraining Recommendations To Nursing Amount of Assist Needed 1 Person Assist Discharge Recommendations PT Discharge Recommendations SNF Rehab Transportation Needs at Discharge Private Vehicle,Wheelchair/ Cabulance
--- NOTE | 2020-10-27 14:31 | CM.DPC ---
DCP Cont: It is noted that patient's NG tube may be discontinued today. Dr. Perez added physical therapy orders. Will review P.T. notes when they work with patient. P: DCP to continue to follow for any needs. Marizol Argueta RN/Supervisor Counseling And Guidance
[2020-10-27] MEDS: CEFTRIAXONE 2 GM/50 ML FROZ.PIGGY IV (16:06)
--- NOTE | 2020-10-27 20:39 | PC.NURSE ---
Evening shift note: Pt very concerned that she needs to eat, and that she is becoming dehydrated (despite fluids infusing as ordered), explained to patient that the idea of bowel rest is to give the bowel time to rest without food, but that we are giving her plenty of fluids in the way of IV fluids. Contacted Dr Nathan who is [facility] attendant for Dr. Perez to clarify that we are to continue the KCL 20 in NS at 125mL/hr after the 1st bag has infused. Due to the current lab results of K 3.0, orders were given to continue fluids as ordered, new bag infusing. Bed low and locked, call light within reach, no further needs at this time, will continue to monitor.
[2020-10-28] VITALS (12 sets, daily range): BP systolic 134–172; BP diastolic 59–92; PULSE 67–76; RESP 15–19; TEMP 36.4–37.4; O2SAT 94–97
[2020-10-28] MEDS: metroNIDAZOLE 500 MG/100 ML PIGGYBACK 100 MG IV ×3 (01:01→17:21)
[2020-10-28] MEDS: METOPROLOL TARTRATE 5 MG/5 ML INJ IV (02:17)
[2020-10-28 05:21] LABS: Add Manual Diff / Slide Review NO; Basophils Absolute Auto 0 /uL (0-100); Basophils Percent Auto 0.3 % (0-2); Eosinophils Absolute Auto 0 /uL (0-450); Eosinophils Percent Auto 0.4 % (2-4); Hematocrit 31.7 % (36-46); Hemoglobin 10.7 g/dL (12.0-16.0); Lymphocytes Absolute Auto 1200 /uL (1100-4500); Lymphocytes Percent Auto 12.9 % (25-40); Mean Corpuscular HGB Conc 33.7 % (30-36); Mean Corpuscular Hemoglobin 31.5 PG (26-34); Mean Corpuscular Volume 93.4 fL (80-100); Monocytes Absolute Auto 800 /uL (0-900); Monocytes Percent Auto 8.8 % (3-14); Neutrophils Absolute Auto 7300 /uL (1500-7000); Neutrophils Percent Auto 77.6 % (50-75); Platelet Count 133 X10^3/uL (150-400); Red Cell Distribution Width 14.7 % (11.6-14.8); White Blood Cell Count 9.4 X10^3/uL (4.5-11.0)
[2020-10-28 05:25] LABS: Blood Urea Nitrogen 20 mg/dL (7-17); Calcium 8.1 mg/dL (8.4-10.2); Carbon Dioxide 25 mmol/L (22-32); Chloride 115 mmol/L (98-107); Estimated Glomerular Filt Rate > 60.0 mL/min (>60); Glucose 70 mg/dL (80-110); HEMOLYSIS < 15 (0-50); Magnesium 1.6 mg/dL (1.6-2.3); Potassium 3.1 mmol/L (3.4-5.1); Sodium 141 mmol/L (137-145)
[2020-10-28] MEDS: KCL 20 MEQ IN NS 1,000 ML 125 MEQ IV (05:32)
[2020-10-28 05:43] LABS: Procalcitonin 0.65 ng/mL (<0.5)
--- NOTE | 2020-10-28 06:11 | PC.NURSE ---
0600- Patient labs show BG at 70. Patient allowed to have a small amount of apple juice. Patient has bowel tones and has not had any loose stools this shift. Patient potassium remains low and her magnesium is low as well. There is potassium in patient IV fluid. Will monitor.
--- NOTE | 2020-10-28 07:39 | CM.DPC ---
Addendum entered by Marizol Argueta R.N. 10/28/20 10:13: Dr. Perez came by the care management office, gave him an update regarding retirement. He stated, he anticipates that patient could be ready for DC on Sunday. This immigration case manager called back Zahraa Casillas, [place] immigration case manager, gave her update, but mentioned no later than Sunday, confirmed that authorization is good for 48 hours. Zahraa will be here tomorrow as well, and is wanting continued P.T. and clinical notes. Will send P.T. notes from today, and clinical information. She would like to be updated tomorrow. Addendum entered by Marizol Argueta R.N. 10/28/20 08:13: Had a brief conversation with patient. Mentioned retirement rehab before she goes home, and stated, she would be willing to go if needed, but not for long. Gave her Medicare Choice List. Patient indicated, it would be ok to send referral to [facility]. Let her know that this would also depend upon [place] authorization. Called Jessica at [facility], she will review patient, and confirmed that they do have female beds. Also, called patient's immigration case manager at [place], Zahraa Casillas, she will also review P.T. note. Original Note: DCP Cont: P.T. is recommending retirement. This immigration case manager has not yet had discussion with patient regarding retirement. Did go ahead and fax [place] the P.T. note, for review. Will discuss with patient today. P: DCP to discuss possible retirement with patient. Marizol Argueta RN/Band Maker
--- NOTE | 2020-10-28 08:27 | P.PN_ITS ---
Subjective Subjective Date Patient Seen: 10/28/20 Time Patient Seen: 08:27 Interval history: Patient feeling slightly better still having about the same amount of pain. Less diarrhea but still having it. No vomiting. Has done well with NG out. Feeling like her nausea is gone. Otherwise is feeling quite well. No other changes. Exam Vital Signs (past 8 hours): - 10/28/20 00:28 10/28/20 01:00 10/28/20 03:57 Temperature 97.5 F L Pulse Rate 76 71 Respiratory Rate 18 16 Blood Pressure 162/92 H 134/64 Pulse Oximetry 97 97 94 10/28/20 05:00 Temperature Pulse Rate Respiratory Rate Blood Pressure Pulse Oximetry 94 Oxygen Delivery Method Room Air Oxygen Flow Rate 0 Narrative Exam Narrative: Alert female no acute distress Lungs are clear. Heart regular rate and rhythm. Abdomen is soft positive bowel sounds still with pretty significant diffuse tenderness mild rebound no guarding. Extremities without cyanosis clubbing edema. Neurologic exam is unremarkable. Objective Labs Result Diagrams: 10/28/20 04:40 10/28/20 04:40 Labs: Laboratory Results - last 24 hr 10/28/20 10/28/20 10/28/20 04:40 04:40 04:40 WBC 9.4 RBC 3.40 L Hgb 10.7 L Hct 31.7 L MCV 93.4 MCH 31.5 MCHC 33.7 RDW 14.7 Plt Count 133 L Neut % (Auto) 77.6 H Lymph % (Auto) 12.9 L [place] % (Auto) 8.8 Eos % (Auto) 0.4 L Baso % (Auto) 0.3 Neut # (Auto) 7300 H Lymph # (Auto) 1200 [place] # (Auto) 800 Eos # (Auto) 0 Baso # (Auto) 0 Sodium 141 Potassium 3.1 L Chloride 115 H Carbon Dioxide 25 BUN 20 H Creatinine 0.80 Estimated GFR > 60.0 BUN/Creatinine Ratio 25.0 H Glucose 70 L Calcium 8.1 L Magnesium Procalcitonin 0.65 H 10/28/20 04:40 WBC RBC Hgb Hct MCV MCH MCHC RDW Plt Count Neut % (Auto) Lymph % (Auto) [place] % (Auto) Eos % (Auto) Baso % (Auto) Neut # (Auto) Lymph # (Auto) [place] # (Auto) Eos # (Auto) Baso # (Auto) Sodium Potassium Chloride Carbon Dioxide BUN Creatinine Estimated GFR BUN/Creatinine Ratio Glucose Calcium Magnesium 1.6 [facility]calcitonin [facility] Medical History Ischemic colitis Pacemaker Surgical History H/O: hysterectomy History of bilateral oophorectomies Social History household members: children Smoking Status: Current every day smoker alcohol intake: never substance use type: does not use Assessment & Plan Assessment & Plan narrative: Assessment & Plan narrative: Abdominal pain. NG tube out. Feels about the same on exam today. Had discussed with surgeon may be able to give clear liquids today but I am going to allow him to make that decision. I do not see diet being advanced much today will see how the next 24 hours goes. And see about diet. Otherwise white count seems stable and exam otherwise is stable continue antibiotics presumed ischemic colitis but is res ponding to antibiotics. Will continue for now. Hypokalemia. Still decreased and probably continue to be secondary to no p.o. intake and diarrhea. Will increase in IV fluids and follow from there. Low blood sugar with no p.o. intake. Will had glucose 2 IV and follow. Hopefully in the next 24-48 hours were taking p.o.. Anemia. Probably secondary to hydration. No evidence of bleeding that we can see. Does not seem to be any evidence of bleeding. Will follow I think this is secondary to hydration. Indwelling [place]. Will remove today patient seems to be ambulating well Sepsis syndrome. Blood pressure at this time seems to be stable. She is otherwise seems to be doing much better. Resolved at this point. Procalcitonin is negative. Fluid electrolyte nutrition. Should be okay with nutrition will add sugar. Hopefully in the next 48 hours will be stable. Output has been good. Hypertension. Poorly controlled at this time as she improves. Will add IV metoprolol follow over the next 24 hours. Add back p.o. when we are able. COPD. Stable. Breathing comfortably no O2 requirement. Cigarette addiction. Discussed her need to stop but add nicotine. History of anxiety. Seems to be stable but will continue lorazepam as needed. Chronic back pain. No complaints today. Will follow. Code status DNR. GI prophylaxis on Protonix. DVT will continue SCDs. Platelets have been decreasing and will stop Lovenox Disposition. Physical therapy ceiling may need to go to sniff. We still have few days of hospitalizations. If were looking at discharge at Sunday would be surprised. Will does have to see how she does. Patient requesting to go home. 45 minutes spent in coordination care and care.. Quality VTE Deep Vein Thrombosis/Pulmonary Embolism Present on Admission: No
[2020-10-28] MEDS: hydroCHLOROthiazide 25 MG TABLET 12.5 MG PO (09:33)
[2020-10-28] MEDS: CLOPIDOGREL 75 MG TABLET PO (09:33)
[2020-10-28] MEDS: POTASSIUM CHLORIDE 40 MEQ in DEXTROSE 5%-0.9% NS 1,000 ML 125 MEQ IV ×2 (09:33→21:40)
[2020-10-28] MEDS: METOPROLOL ER 25 MG TABLET 12.5 MG PO (09:34)
[2020-10-28] MEDS: lisinopriL 10 MG TABLET PO (09:34)
[2020-10-28] MEDS: NICOTINE 14 PATCH 14 MG TOP (09:34)
[2020-10-28] MEDS: PANTOPRAZOLE 40 MG VIAL 20 MG IV (09:35)
[2020-10-28] MEDS: CEFTRIAXONE 2 GM/50 ML FROZ.PIGGY IV (16:05)
--- NOTE | 2020-10-28 16:16 | PT-IP ANOTE ---
checked on pt and pt refused PT. stated that she does not have energy to get up and walk and that she needs food for her to be able to move. pt is currently NPO. will f/u tomorrow.
--- NOTE | 2020-10-28 19:38 | P.PN_ITS ---
Subjective Subjective Date Patient Seen: 10/28/20 Time Patient Seen: 19:38 Interval history: Patient feels much better. Completely alert and oriented. Her son is visiting with her this evening. Not really having much abdominal pain. Passing flatus. No heart or breathing issues. Exam Vital Signs (past 8 hours): - 10/28/20 12:00 10/28/20 15:28 10/28/20 16:17 Temperature 98.5 F Pulse Rate 68 Respiratory Rate 17 Blood Pressure 143/67 H Pulse Oximetry 96 97 97 10/28/20 19:13 Temperature 98 F Pulse Rate 68 Respiratory Rate 19 Blood Pressure 163/80 H Pulse Oximetry 96 Oxygen Delivery Method Room Air Oxygen Flow Rate 0 Narrative Exam Narrative: Cooperative in no apparent distress. Lungs are clear to auscultation. Abdomen is flat with very little distension. It is soft and the only tenderness seems to be in the lower left abdomen and is mild at moderate palpation. There is no guarding whatsoever. Objective Labs Result Diagrams: 10/28/20 04:40 10/28/20 04:40 Labs: Laboratory Results - last 24 hr 10/28/20 10/28/20 10/28/20 04:40 04:40 04:40 WBC 9.4 RBC 3.40 L Hgb 10.7 L Hct 31.7 L MCV 93.4 MCH 31.5 MCHC 33.7 RDW 14.7 Plt Count 133 L Neut % (Auto) 77.6 H Lymph % (Auto) 12.9 L [place] % (Auto) 8.8 Eos % (Auto) 0.4 L Baso % (Auto) 0.3 Neut # (Auto) 7300 H Lymph # (Auto) 1200 [place] # (Auto) 800 Eos # (Auto) 0 Baso # (Auto) 0 Sodium 141 Potassium 3.1 L Chloride 115 H Carbon Dioxide 25 BUN 20 H Creatinine 0.80 Estimated GFR > 60.0 BUN/Creatinine Ratio 25.0 H Glucose 70 L Calcium 8.1 L Magnesium Procalcitonin 0.65 H 10/28/20 04:40 WBC RBC Hgb Hct MCV MCH MCHC RDW Plt Count Neut % (Auto) Lymph % (Auto) [place] % (Auto) Eos % (Auto) Baso % (Auto) Neut # (Auto) Lymph # (Auto) [place] # (Auto) Eos # (Auto) Baso # (Auto) Sodium Potassium Chloride Carbon Dioxide BUN Creatinine Estimated GFR BUN/Creatinine Ratio Glucose Calcium Magnesium 1.6 Procalcitonin PFSH Medical History Ischemic colitis Pacemaker Surgical History H/O: hysterectomy History of bilateral oophorectomies Social History household members: children Smoking Status: Current every day smoker alcohol intake: never substance use type: does not use Assessment & Plan Assessment & Plan narrative: Patient's pain appears to have nearly resolved. Her white blood cell count and differential have improved. Her labs are noted. I talked to her about smoking cessation which is quite important given the fact I think that she is having ischemic colitis as the cause of these problems. I talked to her and her son about how sick she was when she came in and she could easily have . All questions were answered. Will start her on a diet. Quality VTE Deep Vein Thrombosis/Pulmonary Embolism Present on Admission: No
--- NOTE | 2020-10-28 19:44 | PC.NURSE ---
Dr. Ford at bedside assessing pt. Pt is alert and able to participate in assessment. Pt reports wanting to go off NPO and Dr. Ford gave verbal order to this RN to provide pt with clear liquid diet. Pt given apple juice and tolerated well. 194410/28/2020.
[2020-10-29] VITALS (15 sets, daily range): BP systolic 128–155; BP diastolic 72–84; PULSE 67–84; RESP 17–19; TEMP 36.3–37.1; O2SAT 94–98
[2020-10-29] MEDS: metroNIDAZOLE 500 MG/100 ML PIGGYBACK 100 MG IV ×3 (00:36→16:52)
[2020-10-29 05:10] LABS: Add Manual Diff / Slide Review NO; Basophils Absolute Auto 0 /uL (0-100); Basophils Percent Auto 0.5 % (0-2); Eosinophils Absolute Auto 200 /uL (0-450); Eosinophils Percent Auto 1.6 % (2-4); Hematocrit 33.5 % (36-46); Hemoglobin 11.5 g/dL (12.0-16.0); Lymphocytes Absolute Auto 1600 /uL (1100-4500); Lymphocytes Percent Auto 17.2 % (25-40); Mean Corpuscular HGB Conc 34.4 % (30-36); Mean Corpuscular Hemoglobin 31.7 PG (26-34); Mean Corpuscular Volume 92.2 fL (80-100); Monocytes Absolute Auto 800 /uL (0-900); Monocytes Percent Auto 8.3 % (3-14); Neutrophils Absolute Auto 6800 /uL (1500-7000); Neutrophils Percent Auto 72.4 % (50-75); Platelet Count 157 X10^3/uL (150-400); Red Blood Cell Count 3.63 X10^6/uL (4.0-5.2); White Blood Cell Count 9.4 X10^3/uL (4.5-11.0)
[2020-10-29 05:13] LABS: BUN Creatinine Ratio 17.4 (6-22); Blood Urea Nitrogen 12 mg/dL (7-17); Calcium 8.1 mg/dL (8.4-10.2); Carbon Dioxide 29 mmol/L (22-32); Chloride 110 mmol/L (98-107); Estimated Glomerular Filt Rate > 60.0 mL/min (>60); Glucose 129 mg/dL (80-110); HEMOLYSIS < 15 (0-50); Potassium 3.3 mmol/L (3.4-5.1); Sodium 140 mmol/L (137-145)
[2020-10-29] MEDS: POTASSIUM CHLORIDE 40 MEQ in DEXTROSE 5%-0.9% NS 1,000 ML 125 MEQ IV ×2 (06:59→19:09)
[2020-10-29] MEDS: CLOPIDOGREL 75 MG TABLET PO (08:27)
[2020-10-29] MEDS: METOPROLOL ER 25 MG TABLET 12.5 MG PO (08:28)
[2020-10-29] MEDS: lisinopriL 10 MG TABLET PO (08:31)
[2020-10-29] MEDS: hydroCHLOROthiazide 25 MG TABLET 12.5 MG PO (08:31)
[2020-10-29] MEDS: NICOTINE 14 PATCH 14 MG TOP (08:33)
[2020-10-29] MEDS: PANTOPRAZOLE 40 MG VIAL 20 MG IV (08:33)
--- NOTE | 2020-10-29 08:38 | CM.DPC ---
Addendum entered by Yohana Gay LPN 10/29/20 10:24: Met with pt as planned and she confirms that she knows she will recover much better at the snf setting than she would struggling by herself at home. Updated her white-board to include the d/c plan for [facility] when stable for same and pending [facility] authorization. She is encouraged to work with PT/OT today and states she understands that this will help in her recovery. Spoke with [facility] and gave update. Will check on COVID - test need closer to d/c. Kimberly will be on admission phone this weekend. Spoke with [facility]. Went over case and she at this time will pass this on to weekend colleagues. She stated that all is looking good thus far for the authorization. She stated [facility] will want to make sure that pt is progressing well with the diet before she is ready for d/c to snf setting. Agreed to fax updated clinical and therapy notes as soon as these are available. Zahraa confirms weekend tel # [phone] and fax# [phone] Dr. Ford is here rounding he is updated. He confirms that Dr. Perez or rounding partner will be doing the final d/c orders for pt. Original Note: DCP: continued: case again received and EMR reviewed for the last few days. See that [facility] is likely the d/c disposition and is pending [facility] authorization. PT is working with pt altho it looks like pt has been reluctant due to her weakness with medical situation. OT order is obtained now as will also need this as part of the snf authorization process. P: check in with pt, discuss in Team Rounds and followup with [facility]RI[facility] Medrano re status of the auth.
--- NOTE | 2020-10-29 08:44 | P.PN_ITS ---
Subjective Subjective Date Patient Seen: 10/29/20 Time Patient Seen: 08:44 Interval history: Patient is sleeping and prefers not to be awakened. She denies any nausea or vomiting and is not experiencing any abdominal pain. She has been stable with an nG tube out and is being started on a clear liquid diet today. She denies any chest pain or shortness of breath. She has not had further diarrhea Remainder review review of systems is negative other than above Reviewed her chart and workup thus far. Exam Vital Signs (past 8 hours): - 10/29/20 03:38 10/29/20 04:00 10/29/20 07:00 Temperature 98.1 F 98.6 F Pulse Rate 67 75 Respiratory Rate 18 17 Blood Pressure 147/77 H 137/78 Pulse Oximetry 98 98 95 10/29/20 08:28 10/29/20 08:31 Temperature Pulse Rate 75 75 Respiratory Rate Blood Pressure 137/78 137/78 Pulse Oximetry Oxygen Delivery Method Room Air Oxygen Flow Rate 0 Narrative Exam Narrative: Patient is alert and oriented x3. Patient is sleeping and is awaken to evaluate. Patient appears older than stated age. HEENT: Mucous membranes moist and pink Neck: Supple Chest: Clear to auscultation with prolonged expiratory phase Cor: Regular rate and rhythm without murmur Abdomen: Positive bowel sounds, soft, no guarding Extremities no edema Objective Labs Result Diagrams: 10/29/20 04:25 10/29/20 04:25 Labs: Laboratory Results - last 24 hr 10/29/20 10/29/20 04:25 04:25 WBC 9.4 RBC 3.63 L Hgb 11.5 L Hct 33.5 L MCV 92.2 MCH 31.7 MCHC 34.4 RDW 15.0 H Plt Count 157 Neut % (Auto) 72.4 Lymph % (Auto) 17.2 L [place] % (Auto) 8.3 Eos % (Auto) 1.6 L Baso % (Auto) 0.5 Neut # (Auto) 6800 Lymph # (Auto) 1600 [place] # (Auto) 800 Eos # (Auto) 200 Baso # (Auto) 0 Sodium 140 Potassium 3.3 L Chloride 110 H Carbon Dioxide 29 BUN 12 Creatinine 0.69 Estimated GFR > 60.0 BUN/Creatinine Ratio 17.4 Glucose 129 H Calcium 8.1 L [facility] Medical History Ischemic colitis Pacemaker Surgical History H/O: hysterectomy History of bilateral oophorectomies Social History household members: children Smoking Status: Current every day smoker alcohol intake: never substance use type: does not use Assessment & Plan Assessment & Plan narrative: 35 minutes was spent with the patient on the floor reviewing her chart reviewing her workup and meeting with the patient and discussing the case with nursing. 80-year-old female admitted with abdominal pain presumed to be ischemic colitis Plan: Continue per surgery Continue with current antibiotics 2. Hypokalemia with potassium slowly coming up Plan: Will continue with same potassium in IV fluids and will reassess tomorrow 3. Normocytic anemia suspected to be related to dilution. Numbers have improved. We will continue to follow Assessment number for GI prophylaxis Plan: Continue on PPI Assessment 5. Tobacco abuse Plan: Encourage smoking cessation Assessment 6. Hypertension currently well controlled Plan: Continue on same lisinopril hydrochlorothiazide and metoprolol. Continue to monitor Disposition: Patient will likely need group home facility for rehabilitation. [employer] are involved. Anticipate patient will be ready for discharge on 10/30 are 221 pending how she does with reintroducing diet. Quality VTE Deep Vein Thrombosis/Pulmonary Embolism Present on Admission: No
--- NOTE | 2020-10-29 09:57 | PC.NURSE ---
Dayshift Note: Pt with neuro intact, denies pain. A and O x3. PERRLA. Pt with serosang discharge from nares, pt and MD attribute this to prior traumatic NG placement. Will continue monitoring as pt is on plavix. Pt is on RA, SPO2 94%. Lungs CTA, denies SOB. Pt with VSS, denies chest pain/pressure. Pt with regular HR, not on telemetry. Pt denies nausea, tolerating advancement to clear liquid diet. Denies abdominal pain. Active BTs. Pt has been stooling on prior shifts. Pt does not report issues with system. Pt has been voiding regularly. Pt is reluctant to ambulate. PT ordered and pt encouraged to increase mobility to improve GI functioning. Call light within reach. Bed alarm on and functioning. Will continue to monitor, notify MD with changes.
--- NOTE | 2020-10-29 10:21 | DIET.PN ---
Dietary Progress Note Pt advanced to clear liquid diet, no carbonation. Sending ONS Jhoan bid to support protein needs.
--- NOTE | 2020-10-29 10:33 | OT.IP.EVAL ---
Current Diagnoses Noninfective gastroenteritis and colitis, unspecified (10/25/20) Past Medical History (Last Reviewed 10/27/20 @ 10:41 by Christos Ford MD) Ischemic colitis Pacemaker Surgical History (Last Reviewed 10/27/20 @ 10:41 by Christos Ford MD) H/O: hysterectomy History of bilateral oophorectomies Occupational Therapy Inpatient Evaluation/Re-Eval M1 PT/OT-IP Prior Functional Status Start: 10/27/20 14:14 Freq: NEEDED Status: Active Protocol: Document 10/29/20 11:26 CGR (Rec: 10/29/20 11:39 CGR [id number]) Medical Review Prior Functional Status Medical History Reviewed Yes Communication able to make needs known Mobility and Gait pt stated that she is modified independent with all mobilities and ambulation using FWW Activities of Daily Living and IADL's Pt states that she was IND in all ADLs but that cleaning was starting to get difficult. Prior Functional Level (Other details) pt stated that she was still able to drive Social History Household Members children Living Arrangements House Number of Floors (Floors) Two Floors Number of Stairs To Enter/Railing? pt stays on main level of the house; has 8 steps with R rail ascending to enter Home Environment Standard Height Toilet,Tub/ Shower Home Equipment Hand Held Shower Additional Social History Comment pt has a very high bed and stated that she pulls on her blankets to get into the bed stated that her daughter that lives with her cannot assist her due to drinking issues has meals on wheels M2 OT-IP Current Condition Start: 10/29/20 11:25 Freq: Status: Active Protocol: Document 10/29/20 11:26 CGR (Rec: 10/29/20 11:39 CGR [id number]) Occupational Therapy Current Condition Current Condition Evaluation Date 10/29/20 Treatment Diagnosis colitis vs SBO Diagnosis Onset Date 10/28/20 M3 OT- IP Subjective and Pain Start: 10/29/20 11:25 Freq: Status: Active Protocol: Document 10/29/20 11:26 CGR (Rec: 10/29/20 11:39 CGR [id number]) OT- Subjective Occupational Therapy Visit Type Visit Start Time 10:10 Visit Stop Time 10:33 Total Visit Minutes 23 Notes Pt agreeable to getting up. Occupational Therapy Visit Comments Patient Comments I think my brief is soiled. OT Pain Assessment Pain When Pain Assessed At Rest Pain Present Pain Present Denied Pain M4 OT- IP ADL's Start: 10/29/20 11:25 Freq: Status: Active Protocol: Document 10/29/20 11:26 CGR (Rec: 10/29/20 11:39 CGR [id number]) OT [id number] Comments OT Self-Feeding Comments Not meal time OT ADL-Grooming General Evaluation Grooming Ability Standby Assistance Areas Needing Assistance Face Washing Comments OT Grooming Comments seated in chair OT ADL-Oral Care Comments Oral Care Comments Not performed, pt states she performed this AM. OT ADL-Dressing General Eval Lower Body Dressing Ability Contact Guard Assistance Areas Needing Assistance Underpants/Brief Comments OT Dressing Comments Pt donned clean briefs seated EOB. OT ADL-Toileting General Evaluation Toileting Ability Total Assistance Areas Needing Assistance Manage Clothing,Perform Perineal Hygiene Comments OT Toileting Comments Pt with wet brief. Pt needed total assist to doff dirty brief and perform pericare. OT ADL-Bathing Comments OT Bathing Comments Not performed M5 OT- IP IADL's Start: 10/29/20 11:25 Freq: Status: Active Protocol: Document 10/29/20 11:26 CGR (Rec: 10/29/20 11:39 CGR [id number]) OT-Instrumental Activities of Daily Living Deficits IADL Deficits Identified Deficits Home Safety Awareness Awareness of Need for Assistance at Home Decreased Awareness Ability to Problem Solve Emergency Unable to Problem Solve Situations M6 OT- IP Functional Cognition Start: 10/29/20 11:25 Freq: Status: Active Protocol: Document 10/29/20 11:26 CGR (Rec: 10/29/20 11:39 CGR [id number]) Cognitive Factors Limiting Selfcare Function Cognitive Ability Level of Alertness Alert Patient Orientation Name,Year,Place,Situation Attention Span Ability Capable of Focused Attention, Unable to Sustain Attention Ability to Follow Commands Able to Follow One Step Commands with Increased Time, Able to Follow One Step Commands with Repetition Cognitive Comments Cognitive Assessment Comments Pt has difficulty answering questions directly. Pt would benefit from formal cog assessment. OT- Vision and Hearing OT- Hearing Assessment OT- Hearing Assessment WFL OT- Vision Assessment Visual Acuity Glasses All The Time Visual Attentiveness WFL Occular Pursuits WFL Visual Convergence WFL M7 OT- IP Mobility and Balance Start: 10/29/20 11:25 Freq: Status: Active Protocol: Document 10/29/20 11:26 CGR (Rec: 10/29/20 11:39 CGR [id number]) OT- Bed Mobility Assessment Rolling Level of Assistance Contact Guard Assistance Supine to Sit Supine to Sit Assist Contact Guard Assistance Scooting Scooting to Edge of Bed Contact Guard Assistance OT-Transfer Assessment Sit to and From Stand Sit to and from Stand Minimal Assistance Transfers Transfer Ability Minimal Assistance Technique Transfer Destination Bed,Chair Transfer Technique Stand Step Pivot Devices Transfer Assistive Devices Gait Belt,Front Wheeled Walker Comments Mobility Comments Mobility from bed to chair. Pt declined mobility to the bathroom or to the sink for ADLS. OT- Gait Assessment Gait Gait Assistance Required: Minimum Assistance Assistive Devices Assistive Device Gait Belt,Front Wheeled Walker OT- Balance Assessment Sitting Balance and Reactions Static Sitting Balance Ability Good Dynamic Sitting Balance Ability Fair M8 OT- IP Objective Assessments Start: 10/29/20 11:25 Freq: Status: Active Protocol: Document 10/29/20 11:26 CGR (Rec: 10/29/20 11:39 CGR [id number]) OT Gross Range of Motion Upper Extremity Range of Motion Assessment Within Functional Limits OT Strength Upper Extremity Strength Assessment Within Functional Limits Comments Strength Comments grossly 4/5 OT- Coordination Assessment Upper Extremity Finger to Nose Test Within Functional Limits Finger Tapping Test Within Functional Limits OT-Muscle Tone Assessment Muscle Tone WNL No OT Sensation Assessment Edema Edema Absent M9 OT- IP Assessment and Plan Start: 10/29/20 11:25 Freq: Status: Active Protocol: Document 10/29/20 11:26 CGR (Rec: 10/29/20 11:39 CGR [id number]) OT Summary Assessment and Plan Potential Rehabilitation Potential Good Analytic Complexity at Evaluation Low Summary OT Impairments Balance,Functional Cognition, Functional Mobility,Grooming, Dressing,Toileting,Bathing, Toilet Transfers,Shower Transfers,Activity Tolerance Progress Towards Goals Slow Progress due to Activity Tolerance Assessment Summary Pt presents as a low complexity evaluation s/p admit for colitis vs SBO. Pt is currently requiring min a for mobility and significant assist for some of her self care. Pt will benefit from SNF upon discharge. Goals Grooming Goal Independent Dressing Goal Independent Toileting Goal Independent Bathing Goal Independent Toilet Transfer Goal Independent Shower Transfer Goal Independent Days to Meet Goals 10 Frequency of Treatment Frequency Of Treatment Once a Day Treatment Plan OT Treatment Plan ADL Training,Functional Cognition Training,Functional Mobility,Patient/Family Education,Discharge Planning Other Treatment Recommendations and Next shower or ADLs standing Treatment Focus Discharge Recommendations OT Discharge Recommendations SNF Rehab Transportation Needs at Discharge Private Vehicle,Wheelchair/ Cabulance
--- NOTE | 2020-10-29 11:07 | PT.IPTN ---
Current Diagnoses Noninfective gastroenteritis and colitis, unspecified (10/25/20) Physical Therapy Treatment Note M2 PT-IP Current Condition Start: 10/27/20 14:14 Freq: NEEDED Status: Active Protocol: Document 10/27/20 11:44 AB (Rec: 10/27/20 14:30 AB [id number]) Physical Therapy Current Condition Current Condition Evaluation Date 10/27/20 Treatment Diagnosis ischemic colitis; difficulty in walking Onset Date 10/25/20 M3 PT-IP Subjective Start: 10/27/20 14:14 Freq: NEEDED Status: Active Protocol: Document 10/29/20 10:45 CLB (Rec: 10/29/20 11:28 CLB [id number]) Subjective Physical Therapy Visit Type Type Treatment Note Visit Start Time 10:45 Visit Stop Time 11:08 Total Visit Minutes 23 Number of BURR SANDER Visits 1 Physical Therapy Visit Comments Patient Comments Pt pleasant and agreeable to ambulate with therapy. Therapy Pain Assessment Pain Present Pain Present Denied Pain M4 PT-IP Mobility and Gait Start: 10/27/20 14:14 Freq: NEEDED Status: Active Protocol: Document 10/29/20 10:45 CLB (Rec: 10/29/20 11:28 CLB [id number]) PT-Transfer Assessment Sit to and From Stand Sit to and from Stand Minimal Assistance,1 Person Assistance,Use of Upper Extremities Equipment Transfer Assistive Device Gait Belt,Front Wheeled Walker Orthotic/Prosthetic Devices or Brace: No Transfers Transfer Destination Chair Transfer Technique ambulated using FWW Transfer Ability Level of Assist Minimal Assistance,1 Person Assistance,Use of Upper Extremities Comments Mobility Comments Pt stood from chair Min A with cues for pushing up from arms of chair. Pt then required cues for posture and proper stance inside walker. Pt ambulated w/FWW/Min A with chair follow and assist of IV pole. Pt ambulates with small shuffled step thru gait pattern. Pt had BM while walking and returned to chair and call for assist. Left pt in room with RN ADVANCED present. Gait Assessment Gait Gait Assistance Required: Minimum Assistance Distance (Feet) 25 Able to Maintain Weight Bearing Status Yes During Gait Assistive Devices Assistive Device Gait Belt,Front Wheeled Walker Orthotic/Prosthetic Devices or Brace: No Gait Deviations General Gait Pattern Antalgic,Decreased Stride Length,Decreased Feet Clearance,Flexed Trunk,Narrow Based Gait Factors Limiting Gait Function Factors Limiting Gait Function Decreased Activity Tolerance, Decreased Strength,Difficulty Following Directions,Limited Range of Motion,Pain,Poor Balance,Poor Safety Awareness Comments Gait Comments see mobility comments. M5 PT-IP Objective Assessments Start: 10/27/20 14:14 Freq: NEEDED Status: Active Protocol: Document 10/27/20 11:44 AB (Rec: 10/27/20 14:30 AB [id number]) Orientation Orientation/Cognition Level of Alertness Alert Orientation Name,Place,Situation Safety Awareness Decreased Safety Awareness Memory Description Short Term Impaired Gross Range of Motion Lower Extremity ROM Assessment Within Functional Limits Strength Lower Extremity Strength Hip 4-/5 Knee 4-/5 Muscle Tone Muscle Tone WNL Yes M6 PT-IP Treatment Start: 10/27/20 14:14 Freq: NEEDED Status: Active Protocol: Document 10/27/20 11:44 AB (Rec: 10/27/20 14:30 AB [id number]) Physical Therapy Treatment Education Education Provided Safety M7 PT-IP Assessment and Plan Start: 10/27/20 14:14 Freq: NEEDED Status: Active Protocol: Document 10/29/20 10:45 CLB (Rec: 10/29/20 11:28 CLB [id number]) PT Summary Assessment and Plan Potential Rehabilitation Potential Fair Status of Condition at Evaluation Evolving Summary Impairments Pain,ROM,Strength,Balance, Coordination,Sensation,Tone, Cognition,Bed Mobility, Transfers,Gait,Activity Tolerance Assessment Summary Pt requiring Min A for sit<> stand and ambulation with FWW. Pt increased gait distance to 25ft. Pt with uncontrolled BM during gait. At this time pt will require SNF rehab to increase strength and functional mobility for independence at home. Goals Bed Mobility Goal Standby Assistance Transfer Goal Standby Assistance,Front Wheeled Walker Gait Goal Standby Assistance,Front Wheel Walker Gait Distance 150 Other Goals up/down 8 steps R rail ascending SBA Days to Meet Goals 10 Frequency of Treatment Frequency Of Treatment Once a Day Treatment Plan Physical Therapy Treatment Plan Bed Mobility Training,Transfer Training,Gait Training, Therapeutic Exercise,Balance Retraining,Discharge Planning, Hot or Cold Pack,Neuromuscular Re-ed,Coordination Retraining Recommendations To Nursing Amount of Assist Needed 1 Person Assist Discharge Recommendations PT Discharge Recommendations SNF Rehab Transportation Needs at Discharge Private Vehicle,Wheelchair/ Cabulance
--- NOTE | 2020-10-29 11:26 | PM.PN.1 ---
Subjective Subjective Date Patient Seen: 10/29/20 Time Patient Seen: 12:12 Interval history: No acute events overnight. Patient is passing stool in tolerating clears. Complains of new right upper abdominal pain. Denies any other abdominal pain. Exam Vital Signs (past 8 hours): - 10/29/20 03:38 10/29/20 04:00 10/29/20 07:00 Temperature 98.1 F 98.6 F Pulse Rate 67 75 Respiratory Rate 18 17 Blood Pressure 147/77 H 137/78 Pulse Oximetry 98 98 95 10/29/20 08:00 10/29/20 08:28 10/29/20 08:31 Temperature Pulse Rate 75 75 Respiratory Rate Blood Pressure 137/78 137/78 Pulse Oximetry 94 Oxygen Delivery Method Room Air Oxygen Flow Rate 0 Narrative Exam Narrative: GENERAL: Alert, comfortable. Appears stated age. Answers questions promptly and appropriately. Vital signs noted. HENT: Normocephalic, atraumatic. Hearing intact. EYES: Conjunctiva pink, sclera white, no periorbital swelling. RESPIRATORY: Non-tachypneic, breathing comfortably on room air. GASTROINTESTINAL: Abdomen soft and non-distended; mild tenderness to palpation in the epigastrium GENITALURINARY: No flank tenderness. MUSCULOSKELETAL: Equal tone and mass bilaterally. SKIN: Warm, dry, soft, appropriate color for ethnicity. No other lesions, rashes, or wounds. NEURO: Alert and Oriented X 3. No gross sensory deficits, or cognitive issues. PSYCH: Appropriate affect and mood. Objective Labs Result Diagrams: 10/29/20 04:25 10/29/20 04:25 Labs: Laboratory Results - last 24 hr 10/29/20 10/29/20 04:25 04:25 WBC 9.4 RBC 3.63 L Hgb 11.5 L Hct 33.5 L MCV 92.2 MCH 31.7 MCHC 34.4 RDW 15.0 H Plt Count 157 Neut % (Auto) 72.4 Lymph % (Auto) 17.2 L [place] % (Auto) 8.3 Eos % (Auto) 1.6 L Baso % (Auto) 0.5 Neut # (Auto) 6800 Lymph # (Auto) 1600 [place] # (Auto) 800 Eos # (Auto) 200 Baso # (Auto) 0 Sodium 140 Potassium 3.3 L Chloride 110 H Carbon Dioxide 29 BUN 12 Creatinine 0.69 Estimated GFR > 60.0 BUN/Creatinine Ratio 17.4 Glucose 129 H Calcium 8.1 L PFSH Medical History Ischemic colitis Pacemaker Surgical History H/O: hysterectomy History of bilateral oophorectomies Social History household members: children Smoking Status: Current every day smoker alcohol intake: never substance use type: does not use Assessment & Plan Assessment and plan (1) Acute ischemic colitis: Status: Acute Assessment & Plan narrative: This is a 80-year-old woman with resolving symptoms of acute ischemic colitis. She is tolerating clear liquids, and passing stools. Her white blood cell count has normalized with no left shift. Her main complaint today is sinus drainage, which is likely owing to the NG tube that she had in place. She says her abdominal pain is gone except for a little bit of pain in the right upper abdomen which she says was not there before. Plan: Advanced diet as tolerated Monitor abdominal pain Slow down p.o. intake if signs of abdominal pain or p.o. intolerance Encourage ambulation as tolerated COVID-19 COVID-19 status: Negative Result date/Date tested (Pos, Neg/Pending): 10/25/20 Time Spent With Patient Time with patient: 15-24 minutes Quality VTE Deep Vein Thrombosis/Pulmonary Embolism Present on Admission: No
[2020-10-29] MEDS: CEFTRIAXONE 2 GM/50 ML FROZ.PIGGY IV (15:43)
[2020-10-30] VITALS (11 sets, daily range): BP systolic 135–161; BP diastolic 74–92; PULSE 74–89; RESP 14–18; TEMP 36.6–37.3; O2SAT 95–97
[2020-10-30] MEDS: LORazepam 2 MG/ML INJ 0.5 MG IV (00:25)
[2020-10-30] MEDS: metroNIDAZOLE 500 MG/100 ML PIGGYBACK 100 MG IV (00:26)
[2020-10-30 05:18] LABS: Add Manual Diff / Slide Review NO; Basophils Absolute Auto 100 /uL (0-100); Basophils Percent Auto 0.9 % (0-2); Eosinophils Absolute Auto 200 /uL (0-450); Eosinophils Percent Auto 2.6 % (2-4); Hematocrit 34.4 % (36-46); Hemoglobin 11.6 g/dL (12.0-16.0); Lymphocytes Absolute Auto 1600 /uL (1100-4500); Lymphocytes Percent Auto 17.1 % (25-40); Mean Corpuscular HGB Conc 33.8 % (30-36); Mean Corpuscular Hemoglobin 31.3 PG (26-34); Mean Corpuscular Volume 92.4 fL (80-100); Monocytes Absolute Auto 900 /uL (0-900); Monocytes Percent Auto 9.9 % (3-14); Neutrophils Absolute Auto 6300 /uL (1500-7000); Neutrophils Percent Auto 69.5 % (50-75); Platelet Count 164 X10^3/uL (150-400); Red Blood Cell Count 3.72 X10^6/uL (4.0-5.2); Red Cell Distribution Width 14.7 % (11.6-14.8); White Blood Cell Count 9.1 X10^3/uL (4.5-11.0)
[2020-10-30 05:35] LABS: BUN Creatinine Ratio 11.7 (6-22); Blood Urea Nitrogen 7 mg/dL (7-17); Calcium 7.7 mg/dL (8.4-10.2); Carbon Dioxide 28 mmol/L (22-32); Chloride 109 mmol/L (98-107); Estimated Glomerular Filt Rate > 60.0 mL/min (>60); Glucose 121 mg/dL (80-110); HEMOLYSIS < 15 (0-50); Potassium 3.4 mmol/L (3.4-5.1); Sodium 138 mmol/L (137-145)
--- NOTE | 2020-10-30 10:15 | P.PN_ITS ---
Subjective Subjective Date Patient Seen: 10/30/20 Time Patient Seen: 10:28 Interval history: Patient seen while getting up with physical therapy. Reports no issues with her diet. Able to eat what is presented to her and not causing any increased abdominal symptoms of any sort No real complaints other than generalized weakness Up with physical therapy and stands pretty easily but does look to be somewhat unsteady on her feet Patient's CBC and chemistries unremarkable this morning. White count remains normal Exam Vital Signs (past 8 hours): - 10/30/20 04:19 10/30/20 04:42 10/30/20 08:10 Temperature 98.4 F 99.2 F Pulse Rate 86 74 Respiratory Rate 18 14 Blood Pressure 149/89 H 143/74 H Pulse Oximetry 96 96 96 Oxygen Delivery Method Room Air Oxygen Flow Rate 0 Objective Labs Result Diagrams: 10/30/20 04:56 10/30/20 04:56 Labs: Laboratory Results - last 24 hr 10/30/20 10/30/20 04:56 04:56 WBC 9.1 RBC 3.72 L Hgb 11.6 L Hct 34.4 L MCV 92.4 MCH 31.3 MCHC 33.8 RDW 14.7 Plt Count 164 Neut % (Auto) 69.5 Lymph % (Auto) 17.1 L [place] % (Auto) 9.9 Eos % (Auto) 2.6 Baso % (Auto) 0.9 Neut # (Auto) 6300 Lymph # (Auto) 1600 [place] # (Auto) 900 Eos # (Auto) 200 Baso # (Auto) 100 Sodium 138 Potassium 3.4 Chloride 109 H Carbon Dioxide 28 BUN 7 Creatinine 0.60 Estimated GFR > 60.0 BUN/Creatinine Ratio 11.7 Glucose 121 H Calcium 7.7 L PFSH Medical History Ischemic colitis Pacemaker Surgical History H/O: hysterectomy History of bilateral oophorectomies Social History household members: children Smoking Status: Current every day smoker alcohol intake: never substance use type: does not use Assessment & Plan Assessment & Plan narrative: 1. Ischemic colitis-patient's symptoms appear to have significantly diminished. She is able to eat mostly a normal diet and not really having anything in the way of abdominal symptoms. White count has normalized and she is afebrile. Does continue on IV antibiotics. Will switch that to oral antibiotics today and if stable likely can be discharged tomorrow 2. Hypokalemia-patient's potassium normal this morning. No changes. 3. Mild anemia-stable no evidence of active bleeding this appears to be chronic 4. Hypertension-continue current antihypertensives appears to have adequate control 5. Disposition-patient likely needs [place] [facility] placement before returning home. Would plan for probable discharge to [facility] tomorrow the 31 of October, assuming insurance and facility approval. Note: Greater than 30 minutes was spent evaluating the patient on the floor, including examining the patient, discussing clinical course with clinical and nursing staff, reviewing clinical course in the computer, preparing documentation and writing orders for continued management of care, discussing status with family as appropriate, reviewing plans for the next 24 hours with both patient/family and nursing staff as appropriate. Quality VTE Deep Vein Thrombosis/Pulmonary Embolism Present on Admission: No
--- NOTE | 2020-10-30 10:22 | PT.IPTN ---
Current Diagnoses Noninfective gastroenteritis and colitis, unspecified (10/25/20) Acute (reversible) ischemia of large intestine, extent unspecified (10/25/20) Physical Therapy Treatment Note M2 PT-IP Current Condition Start: 10/27/20 14:14 Freq: NEEDED Status: Active Protocol: Document 10/27/20 11:44 AB (Rec: 10/27/20 14:30 AB [id number]) Physical Therapy Current Condition Current Condition Evaluation Date 10/27/20 Treatment Diagnosis ischemic colitis; difficulty in walking Onset Date 10/25/20 M3 PT-IP Subjective Start: 10/27/20 14:14 Freq: NEEDED Status: Active Protocol: Document 10/30/20 09:56 CLB (Rec: 10/30/20 12:03 CLB [id number]) Subjective Physical Therapy Visit Type Type Treatment Note Visit Start Time 09:56 Visit Stop Time 10:22 Total Visit Minutes 26 Number of ROD WELDER Visits 2 Physical Therapy Visit Comments Patient Comments Pt agreeable to ambulate to chair. Therapy Pain Assessment Pain Present Pain Present Denied Pain M4 PT-IP Mobility and Gait Start: 10/27/20 14:14 Freq: NEEDED Status: Active Protocol: Document 10/30/20 09:56 CLB (Rec: 10/30/20 12:03 CLB [id number]) PT-Bed Mobility Assessment Supine to Sit Supine to Sit Contact Guard Assistance,1 Person Assistance PT-Transfer Assessment Sit to and From Stand Sit to and from Stand Minimal Assistance,1 Person Assistance,Use of Upper Extremities Equipment Transfer Assistive Device Gait Belt,Front Wheeled Walker Orthotic/Prosthetic Devices or Brace: No Transfers Transfer Destination Chair Transfer Technique ambulated using FWW Transfer Ability Level of Assist Minimal Assistance,1 Person Assistance,Use of Upper Extremities Comments Mobility Comments Pt in bed requiring CGA supine -sit and Min A for sit-stand. Pt ambulated ~15ft w/FWW/Min A with cues to stay inside walker and for posture. Pt takes small shuffled steps and requires increased time for all mobility. Pt required CGA to sit with cues for hand placement for safety. Left pt in chair with warm blankets and all needs within reach. RN informed of pt in chair and no alarm available. Gait Assessment Gait Gait Assistance Required: Minimum Assistance Distance (Feet) 15 Able to Maintain Weight Bearing Status Yes During Gait Assistive Devices Orthotic/Prosthetic Devices or Brace: No Gait Deviations General Gait Pattern Antalgic,Decreased Stride Length,Decreased Feet Clearance,Flexed Trunk,Narrow Based Gait Factors Limiting Gait Function Factors Limiting Gait Function Decreased Activity Tolerance, Decreased Strength,Difficulty Following Directions,Limited Range of Motion,Pain,Poor Balance,Poor Safety Awareness Comments Gait Comments see mobility comments. M5 PT-IP Objective Assessments Start: 10/27/20 14:14 Freq: NEEDED Status: Active Protocol: Document 10/27/20 11:44 AB (Rec: 10/27/20 14:30 AB [id number]) Orientation Orientation/Cognition Level of Alertness Alert Orientation Name,Place,Situation Safety Awareness Decreased Safety Awareness Memory Description Short Term Impaired Gross Range of Motion Lower Extremity ROM Assessment Within Functional Limits Strength Lower Extremity Strength Hip 4-/5 Knee 4-/5 Muscle Tone Muscle Tone WNL Yes M6 PT-IP Treatment Start: 10/27/20 14:14 Freq: NEEDED Status: Active Protocol: Document 10/30/20 09:56 CLB (Rec: 10/30/20 12:03 CLB [id number]) Physical Therapy Treatment Exercises Exercises Ankle Pumps,Gluteal Sets,Quad Sets M7 PT-IP Assessment and Plan Start: 10/27/20 14:14 Freq: NEEDED Status: Active Protocol: Document 10/30/20 09:56 CLB (Rec: 10/30/20 12:03 CLB [id number]) PT Summary Assessment and Plan Potential Rehabilitation Potential Fair Status of Condition at Evaluation Evolving Summary Impairments Pain,ROM,Strength,Balance, Coordination,Sensation,Tone, Cognition,Bed Mobility, Transfers,Gait,Activity Tolerance Assessment Summary Pt continues to require Min A for sit-stand and Min A for ambulation with FWW. Pt also requires cues for proper position in FWW during gait. Pt will benefit from SNF rehab for strength and functional mobility. Goals Bed Mobility Goal Standby Assistance Transfer Goal Standby Assistance,Front Wheeled Walker Gait Goal Standby Assistance,Front Wheel Walker Gait Distance 150 Other Goals up/down 8 steps R rail ascending SBA Days to Meet Goals 10 Frequency of Treatment Frequency Of Treatment Once a Day Treatment Plan Physical Therapy Treatment Plan Bed Mobility Training,Transfer Training,Gait Training, Therapeutic Exercise,Balance Retraining,Discharge Planning, Hot or Cold Pack,Neuromuscular Re-ed,Coordination Retraining Recommendations To Nursing Amount of Assist Needed 1 Person Assist Discharge Recommendations PT Discharge Recommendations SNF Rehab Transportation Needs at Discharge Private Vehicle,Wheelchair/ Cabulance
--- NOTE | 2020-10-30 10:38 | P.PN_ITS ---
Subjective Subjective Date Patient Seen: 10/29/20 Time Patient Seen: 12:12 Interval history: No acute events overnight. Patient is passing stool in tolerating fulls. Denies any abdominal pain. She says she is eating as much as she can. Exam Vital Signs (past 8 hours): - 10/30/20 04:19 10/30/20 04:42 10/30/20 08:10 Temperature 98.4 F 99.2 F Pulse Rate 86 74 Respiratory Rate 18 14 Blood Pressure 149/89 H 143/74 H Pulse Oximetry 96 96 96 Oxygen Delivery Method Room Air Oxygen Flow Rate 0 Narrative Exam Narrative: GENERAL: Alert, comfortable. Appears stated age. Answers q uestions promptly and appropriately. Vital signs noted. HENT: Normocephalic, atraumatic. Hearing intact. EYES: Conjunctiva pink, sclera white, no periorbital swelling. RESPIRATORY: Non-tachypneic, breathing comfortably on room air. GASTROINTESTINAL: Abdomen soft and non-distended; non tender GENITALURINARY: No flank tenderness. MUSCULOSKELETAL: Equal tone and mass bilaterally. SKIN: Warm, dry, soft, appropriate color for ethnicity. No other lesions, rashes, or wounds. NEURO: Alert and Oriented X 3. No gross sensory deficits, or cognitive issues. PSYCH: Appropriate affect and mood. Objective Labs Result Diagrams: 10/30/20 04:56 10/30/20 04:56 Labs: Laboratory Results - last 24 hr 10/30/20 10/30/20 04:56 04:56 WBC 9.1 RBC 3.72 L Hgb 11.6 L Hct 34.4 L MCV 92.4 MCH 31.3 MCHC 33.8 RDW 14.7 Plt Count 164 Neut % (Auto) 69.5 Lymph % (Auto) 17.1 L [place] % (Auto) 9.9 Eos % (Auto) 2.6 Baso % (Auto) 0.9 Neut # (Auto) 6300 Lymph # (Auto) 1600 [place] # (Auto) 900 Eos # (Auto) 200 Baso # (Auto) 100 Sodium 138 Potassium 3.4 Chloride 109 H Carbon Dioxide 28 BUN 7 Creatinine 0.60 Estimated GFR > 60.0 BUN/Creatinine Ratio 11.7 Glucose 121 H Calcium 7.7 L PFSH Medical History Ischemic colitis Pacemaker Surgical History H/O: hysterectomy History of bilateral oophorectomies Social History household members: children Smoking Status: Current every day smoker alcohol intake: never substance use type: does not use Assessment & Plan Assessment and plan (1) Acute ischemic colitis: Status: Acute Assessment & Plan narrative: This is a 80-year-old woman with resolving symptoms of acute ischemic colitis. She is tolerating full liquids, and passing stools. Her white blood cell count has normalized with no left shift. Today she says her pain and sinus drainage from yesterday have improved. She is eating some, a nd passing stool. Plan: Advance diet as tolerated Encourage ambulation as tolerated Dispo per primary doctor Surgery will sign off. Call if anything needed. The patient may follow up with [facility]. COVID-19 COVID-19 status: Negative Result date/Date tested (Pos, Neg/Pending): 10/25/20 Time Spent With Patient Time with patient: 15-24 minutes Quality VTE Deep Vein Thrombosis/Pulmonary Embolism Present on Admission: No
--- NOTE | 2020-10-30 11:23 | CM.DPC ---
Addendum entered by Yohana Gay LPN 10/30/20 16:30: Attempted to call the [facility] weekend team with contact info given yesterday by [facility]RIA Casillas. Numbers provided proved to be outdated. Faxed updated therapy notes and with request for a call back from [facility]. Will try again in the morning to find someone at [facility] who can give the needed authorization. Original Note: DCP: continued: met with pt and discussed POC with Dr. Carpenter, here to see pt. He states pt will likely be ready for d/c to [facility] tomorrow. He is aware that all is set up for [facility] C/R and just pending the [facility] authorization. Dr. Pelaez for surgery was here and has signed off the surgery service, stating pt will be ready when ok'd by PCP or rounding partners. Pt is agreeable to same. Will plan to update [facility]. Have spoken with Kimberly/[facility] and will plan on the d/c for tomorrow. Another COVID test will be needed prior to d/c. PT will go via w/c van transport.
[2020-10-30] MEDS: cefUROXime 250 MG TABLET 500 MG PO ×2 (11:45→20:42)
[2020-10-30] MEDS: METOPROLOL ER 25 MG TABLET 12.5 MG PO (13:16)
[2020-10-30] MEDS: lisinopriL 10 MG TABLET PO (13:16)
[2020-10-30] MEDS: CLOPIDOGREL 75 MG TABLET PO (13:16)
[2020-10-30] MEDS: PANTOPRAZOLE 40 MG VIAL 20 MG IV (13:16)
[2020-10-30] MEDS: NICOTINE 14 PATCH 14 MG TOP (13:16)
[2020-10-30] MEDS: hydroCHLOROthiazide 25 MG TABLET 12.5 MG PO (13:16)
--- NOTE | 2020-10-30 13:48 | PC.NURSE ---
Pt up to chair with PT, incont of urine and stool Allyven to coccyx replaced. No nausea tolerating full liquid diet with out difficulties.
--- NOTE | 2020-10-30 14:21 | OT.IP.TRT ---
Current Diagnoses Noninfective gastroenteritis and colitis, unspecified (10/25/20) Acute (reversible) ischemia of large intestine, extent unspecified (10/25/20) Occupational Therapy Treatment Note M2 OT-IP Current Condition Start: 10/29/20 11:25 Freq: Status: Active Protocol: Document 10/29/20 11:26 CGR (Rec: 10/29/20 11:39 CGR [id number]) Occupational Therapy Current Condition Current Condition Evaluation Date 10/29/20 Treatment Diagnosis colitis vs SBO Diagnosis Onset Date 10/28/20 M3 OT- IP Subjective and Pain Start: 10/29/20 11:25 Freq: Status: Active Protocol: Document 10/30/20 14:29 CGR (Rec: 10/30/20 14:30 CGR [id number]) OT- Subjective Occupational Therapy Visit Type Type Administrative Note Notes Attempted to see pt for OT services at 1150 and again at 1421. Pt declines OT services stating that she is fatigued and that she did her exercises in the middle of the night when she is typically up. Will continue to follow.
--- NOTE | 2020-10-30 17:06 | PC.NURSE ---
Addendum entered by Apple Bright R.N. 10/30/20 21:42: Pt repositioned and changed frequently IVF continue as per orders w/o incidence. Rate of IVF changed to 84cc/hr per MD. Relatively uneventful evening. Call light w/in reach, bed alarm on for pt safety. Continue w/plan of care. Original Note: Pt watching TV, denies discomfort at this time. Lungs clear, SpO2 96% RA Pt continues w/ scattered bruising on body as noted. IVF D5w/40meq KCL infusing @ 21cc/hr into the RFA via pump w/o incidence. SCD on while in bed. Call light w/in reach, bed alarm on for pt safety.
[2020-10-30] MEDS: POTASSIUM CHLORIDE 40 MEQ in DEXTROSE 5%-0.9% NS 1,000 ML 84 MEQ IV (21:55)
[2020-10-31] VITALS (7 sets, daily range): BP systolic 141–177; BP diastolic 79–92; PULSE 80–103; RESP 16; TEMP 36.2–36.8; O2SAT 95–98
[2020-10-31] MEDS: POTASSIUM CHLORIDE 40 MEQ in DEXTROSE 5%-0.9% NS 1,000 ML 84 MEQ IV (00:34)
[2020-10-31] MEDS: LORazepam 2 MG/ML INJ 0.5 MG IV (01:25)
--- NOTE | 2020-10-31 08:54 | CM.DPC ---
Addendum entered by Yohana Gay LPN 10/31/20 11:15: Rapid Covid - test results are faxed now to [facility] and placed into the snf packet. CHARI Velasco is updated and provided with Nurse/Nurse report number. Addendum entered by Yohana Gay LPN 10/31/20 10:46: Dr. Carpenter is here and has completed the d/c to [facility] C/R. These plus completed PASRR are faxed. Kimberly/[facility] confirms w/c van transport with garbage pick up worker at 1330. Rapid Covid is in process. Pt remains very agreeable to the d/c today and says she is pleased that [place] has authorized this. Addendum entered by Yohana Gay LPN 10/31/20 09:01: Auth #: [id number] Original Note: DCP: continued: Spoke with [place] BRIA Shankar just now: authorization is now approved for pt to d/c to [facility] today. Will update pt.
[2020-10-31] MEDS: lisinopriL 10 MG TABLET PO (09:31)
[2020-10-31] MEDS: CLOPIDOGREL 75 MG TABLET PO (09:34)
[2020-10-31] MEDS: cefUROXime 250 MG TABLET 500 MG PO (09:34)
[2020-10-31] MEDS: NICOTINE 14 PATCH 14 MG TOP (09:34)
[2020-10-31] MEDS: METOPROLOL ER 25 MG TABLET 12.5 MG PO (09:35)
[2020-10-31] MEDS: PANTOPRAZOLE 40 MG VIAL 20 MG IV (09:36)
[2020-10-31] MEDS: hydroCHLOROthiazide 25 MG TABLET 12.5 MG PO (09:36)
--- NOTE | 2020-10-31 10:12 | P.DS_ITS ---
History of Present Illness History of Present Illness Date Patient Seen: 10/31/20 Time Patient Seen: 10:13 Chief complaint: Septic Narrative: Patient is a 80-year-old white female patient of Dr. Lane who is a poor historian and presented to the emergency room with increasing abdominal pain. Patient has a history of constipation and has had constipation for most of she can remember. She uses MiraLax intermittently but has not been using it lately. She was doing fine until yesterday afternoon when she started having increasing abdominal pain. She feels like before that she was not having any issues. Apparently she laid down on the floor and then threw up. She was then brought to the emergency room. At the presentation to the emergency room she had a blood pressure in her 50s. She was started on Levophed IV fluids. Due to the fact that we were unable to get CT scan she was unable to be transferred due to her being unstable. She was seen by Dr. Ford who did not feel as if she had a definitive perforation which was the concern. She had multiple stools in the emergency room and then prior to being sent to the CT scan in being sedated Dr. Ford was able to remove a large bolus of stool which she then had significant diarrhea afterwards. She has had 1 episode since she has been here in the hospital. She is feeling somewhat better. No nausea or vomiting today. But does have an NG tube. She would like that to be gone. She has no other significant new changes no chest pain. No complaints. {from Dr. Perez's H&P 10/26/20} Discharge Providers Provider Date of admission: 10/25/20 21:53 Discharge Date: 10/31/20 Primary care physician: MELLISA Rea Consults: 10/26/20 02:13 Consult to Dietitian, Adult Routine Comment: Reason For Exam: weight loss Consult to Respiratory Therapy Evaluate & Treat Comment: Physician Instructions: Evaluate and treat 10/27/20 08:17 Consult to Physical Therapy Evaluate & Treat Comment: Physician Instructions: Evaluate and Treat 10/29/20 08:36 Consult to Occupational Therapy Evaluate & Treat Comment: Physician Instructions: Evaluate and treat Discharge provider: Thanh Carpenter MD Summary Hospital Course Discharge Diagnosis: 1. Sepsis with septic shock due to ischemic colitis, resolved 2. Ischemic colitis 3. Stage III chronic renal failure 4. History of pacemaker placement 5. Coronary artery disease status post stent placement, not active this hospitalization Hospital Course: Patient was admitted via the emergency department after presenting with abdominal pain and hypotension etcetera. Had a leukocytosis with left shift and she was treated with initially fluids and Levophed but quickly was able to have her pressors discontinued. She continued on IV fluids as well as IV antibiotics for was presumed to be an intra-abdominal process scan suggested possible ischemic colitis. General surgery was consulted also found her to have a significant rectal impaction and she was disimpacted she had NG tube placed and was monitored carefully with IV fluids parental antibiotics etcetera. She was kept NPO. Her abdominal symptoms improved her leukocytosis resolved and her electrolytes and renal function improved. She was slowly refitted 1st with liquids than with more complex foods and she had no increasing symptoms. She was passing flatus and had small amounts of stool as well. She was continued on antibiotics but switched to oral antibiotics and diet was further increased. She was up and around without particular difficulty Therefore she was felt to be safe for discharge but will require long term placement for continued rehabilitation prior to returning home given her overall debilitated state which is not surprising giving the degree of illness she presented with as above. Status at Discharge Cognitive/behavioral status at discharge: at baseline, oriented Functional status at discharge: uses cane/walker Overall status at discharge: patient is progressing back to baseline Time Spent with Patient Time spent: Greater than 30 minutes Exam Vital Signs (past 8 hours): - 10/31/20 05:52 10/31/20 05:59 10/31/20 09:31 Temperature 97.1 F L Pulse Rate 80 103 H Respiratory Rate 16 Blood Pressure 141/79 H 177/92 H Pulse Oximetry 95 95 10/31/20 09:35 Temperature Pulse Rate 103 H Respiratory Rate Blood Pressure 177/92 H Pulse Oximetry Oxygen Delivery Method Room Air Oxygen Flow Rate 0 Objective Labs Result Diagrams: 10/30/20 04:56 10/30/20 04:56 PFS Medical History Ischemic colitis Pacemaker Surgical History H/O: hysterectomy History of bilateral oophorectomies Social History household members: children Smoking Status: Current every day smoker alcohol intake: never substance use type: does not use Discharge Plan Discharge Plan Patient Disposition: SNF Transfer to: [facility] Consult as needed: Dental, Hearing, Mental health, Podiatry and Vision Discharge orders & Medications Prescriptions: New cefuroxime axetil 250 mg Tablet 500 mg PO BID Qty: 14 RF: 0 Continued metoprolol succinate 25 mg tablet extended release 24 hr 12.5 mg PO DAILY RF: 0 bupropion HCl [Wellbutrin SR] 150 mg Tablet Sustained-Release 12 Hr 150 mg PO BID RF: 0 clopidogrel 75 mg Tablet 75 mg PO DAILY RF: 0 oxybutynin chloride 5 mg Tablet Extended Release 24hr 5 mg PO DAILY RF: 0 lisinopril-hydrochlorothiazide 10-12.5 mg Tablet 1 tab PO DAILY RF: 0 Discontinued lorazepam [Ativan] 1 MG tablet 1 mg PO BEDTIME PRN (Reason: Sleep) Qty: 0 RF: 0 hydrocodone-acetaminophen 5-325 mg Tablet 1 tab PO Q4H PRN (Reason: Pain (Scale Score 4-6)) RF: 0 clonazepam 1 mg Tablet 1 mg PO BEDTIME PRN (Reason: Anxiety) RF: 0 acyclovir 400 mg Tablet 400 mg PO BID RF: 0 cyproheptadine 4 mg Tablet 4 mg PO BID RF: 0 lidocaine [Lidoderm] 5 % Adhesive Patch,Medicated 1 patch TOPICAL DAILY RF: 0 clobetasol 0.05 % Ointment 1 applic TOPICAL BID RF: 0 mometasone 0.1 % Cream 1 applic TOPICAL BID RF: 0 Follow up/Referrals: Rebecca Perez ARNP [Primary Care Provider] - Discharge Health Status Multidrug resistant organism: No MDRO Precautions: [place] Diet/Activity/Treatments Diet: Diet as Tolerated Liquid consistency: Normal/Thin Food texture: Regular [facility] Reason for rehabilitation: Recovery r/t decondition Rehab type: Physical therapy and Occupational therapy Discharge Data Primary Care Provider: Rebecca Perez VTE Deep Vein Thrombosis/Pulmonary Embolism Present on Admission: No
[2020-10-31 10:49] LABS: COVID19 -Nasal RAPID Negative (Negative)
--- NOTE | 2020-10-31 13:25 | PC.NURSE ---
Addendum entered by Candy Lomax R.N. 10/31/20 14:07: IV removed, intact, tolerated well. Packet given to [facility] transport staff member, Jamil, informed him that signed medication list is inside. Pt left with all of her belongings via [facility] w/c accompanied by Jamil. Original Note: Called and spoke with Elvira, nurse at [facility]. Gave her report regarding pt's PMH, reason for admission, current status, skin status, pain, GI/, neuro status. Informed her of pacemaker present and nicotine patch in place on left shoulder. All questions answered.
== END 2020-10-31 13:45 | DRG 871 ==
LOC: ED 21:53 → AC 21:54
PROVIDERS: Emergency Medicine; Family Medicine; Internal Medicine; Specialist; Admitting Provider Family Medicine; Emergency Provider Emergency Medicine; PCP Internal Medicine; Referring Provider Emergency Medicine; Visit Provider Family Medicine
DX: A41.9 Sepsis, unspecified organism (principal); K55.039 Acute (reversible) ischemia of large intestine, extent unspecified; R65.21 Severe sepsis with septic shock; N17.9 Acute kidney failure, unspecified; K56.41 Fecal impaction; E87.6 Hypokalemia; I12.9 Hypertensive chronic kidney disease with stage 1 through stage 4 chronic kidney disease, or unspecified chronic kidney disease; N18.30 Chronic kidney disease, stage 3 unspecified; F17.210 Nicotine dependence, cigarettes, uncomplicated; J44.9 Chronic obstructive pulmonary disease, unspecified; I25.10 Atherosclerotic heart disease of native coronary artery without angina pectoris; Z66 Do not resuscitate; F41.9 Anxiety disorder, unspecified; G89.29 Other chronic pain; Z95.818 Presence of other cardiac implants and grafts; Z95.0 Presence of cardiac pacemaker; Z20.822 Contact with and (suspected) exposure to COVID-19
CPT/HCPCS: 36415; 51701; 71045; 71260; 74018; 74022; 74177; 80048; 80053; 81001; 82550; 82962; 83605; 83735; 84145; 84484; 85007; 85025; 85610; 85651; 86140; 87040; 87045; 87635; 87899; 93005; 93010; 94762; 96365; 96366; 96368; 96372; 96375; 96376; 97116; 97162; 97165; 97530; 97535; 99232; 99238; 99285; 99291; 99292; 99406; C9803; C9113; J0171; J0696; J1170; J1650; J1885; J2060; J2250; J2270; J2405; J3010; J3480; Q9967

== ENCOUNTER → 2020-12-29 12:04 | Outpatient (CLI) | payer MEDICARE, SELFPAY ==
[2020-10-25 23:45] VITALS: BMI 21.4
[2020-12-29] MEDS: COVID-19 VACC #1, MRNA(MOD) 100 MCG/0.5 ML VIAL IM (12:24)
== END ==
PROVIDERS: PCP Internal Medicine; Visit Provider Internal Medicine
DX: Z23 Encounter for immunization (principal)
CPT/HCPCS: 0011A; 91301

== ENCOUNTER 2021-03-24 16:18 | Emergency (ER) | payer OTHER, SELFPAY ==
[2020-10-25 23:45] VITALS: BMI 21.4
[2021-03-24] VITALS (10 sets, daily range): BP systolic 110–176; BP diastolic 56–81; PULSE 68–87; RESP 12–33; TEMP 36.9; O2SAT 96–98; BMI 20.5
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
--- NOTE | 2021-03-24 17:00 | DI.CT.S_ITS ---
PROCEDURE: CT ABDOMEN PELVIS W CON INDICATIONS: Lower pelvic pain, sacral pain, hx of L ischemic colitis/SBO TECHNIQUE: After the administration of intravenous contrast, axial sections acquired from the lung bases to the pubic symphysis. Coronal and sagittal reformats were performed. For radiation dose reduction, the following was used: automated exposure control, adjustment of mA and/or kV according to patient size. COMPARISON: [facility], CT, CT ABDOMEN PELVIS W CON, 07/27/2019, 19:21. [facility], CT, CT CHEST ABD PEL W CON, 10/25/2020, 20:11. FINDINGS: Image quality: Excellent. Lung bases: Moderate to severe emphysema. Heart: Heart size is normal. There is a cardiac pacemaker. ABDOMEN: Liver: Unremarkable. Gallbladder: Gallbladder may contain small gallstones or sludge Biliary ducts: Unremarkable. Pancreas: Unremarkable. Spleen: Unremarkable. Adrenal Glands: Left adrenal thickening. Kidneys and Ureters: Unremarkable. Stomach and Bowel: Stomach, small bowel loops, and colon are normal in caliber. No colonic wall thickening. There is a large amount of stool in colon Peritoneum: No abnormal intraperitoneal fluid. No free air. Ventral Wall: No hernias. Abdominal Nodes: No retroperitoneal or mesenteric adenopathy by size criteria. Vessels: Severe atherosclerosis in the aorta and iliac arteries. There is distal abdominal aortic stenosis with distal abdominal aorta measures 1.3 cm in diameter. PELVIS: Pelvic Organs: Unremarkable. Bladder: Bladder is distended. Bladder wall is normal in thickness. Pelvic Nodes: No enlarged lymph nodes. Miscellaneous: Small fat containing inguinal hernias are seen. Bones: Severe degenerative disc and facet disease in lumbar spine. IMPRESSION: 1. No findings to suggest colitis. 2. A large amount of stool in colon. 3. Possible gallstones or gallbladder sludge. No CT findings to suggest acute cholecystitis. 4. Severe atherosclerosis. 5. Emphysema. Dictated by: Yaritza Ambrocio M.D. on 03/24/2021 at 19:22 Approved by: Yaritza Ambrocio M.D. on 03/24/2021 at 19:30
[2021-03-24 17:48] LABS: Bacteria Urine None Seen
[2021-03-24 17:49] LABS: Appearance Urine UA CLEAR; Bilirubin Urine UA NEGATIVE (NEGATIVE); Color Urine UA YELLOW; Glucose Urine UA NEGATIVE (Negative); Ketones Urine UA NEGATIVE (NEGATIVE); Leukocyte Esterase Urine UA NEGATIVE (NEGATIVE); Nitrite Urine UA NEGATIVE (Negative); Occult Blood Urine UA 1+ (Negative); Protein Urine UA NEGATIVE (Negative); Urobilinogen Urine UA 0.2 E.U./dL (0.2)
[2021-03-24 17:54] LABS: RBC Urine 5-10/HPF (0-5/HPF)
[2021-03-24 17:55] LABS: Culture Indicated Urine Cult Not Indicated; Squamous Epithelial Cell Urine 0-1 /HPF (0-5/HPF); WBC Urine 0-1/HPF (0-5/HPF)
[2021-03-24 18:34] LABS: Add Manual Diff / Slide Review NO; Basophils Absolute Auto 100 /uL (0-100); Basophils Percent Auto 1.3 % (0-2); Eosinophils Absolute Auto 100 /uL (0-450); Eosinophils Percent Auto 1.1 % (2-4); Hematocrit 43.3 % (36-46); Hemoglobin 14.3 g/dL (12.0-16.0); Lymphocytes Absolute Auto 2600 /uL (1100-4500); Lymphocytes Percent Auto 25.2 % (25-40); Mean Corpuscular HGB Conc 33.1 % (30-36); Mean Corpuscular Hemoglobin 30.3 PG (26-34); Mean Corpuscular Volume 91.6 fL (80-100); Monocytes Absolute Auto 900 /uL (0-900); Monocytes Percent Auto 8.4 % (3-14); Neutrophils Absolute Auto 6600 /uL (1500-7000); Platelet Count 155 X10^3/uL (150-400); Red Blood Cell Count 4.72 X10^6/uL (4.0-5.2); Red Cell Distribution Width 15.8 % (11.6-14.8); White Blood Cell Count 10.3 X10^3/uL (4.5-11.0)
[2021-03-24 18:48] LABS: Alanine Aminotransferase 16 IU/L (<35); Albumin Globulin Ratio 1.3 (1.0-2.8); Alkaline Phosphatase 99 U/L (38-126); Aspartate Aminotransferase 28 IU/L (14-36); BUN Creatinine Ratio 24.4 (6-22); Bilirubin Total 0.6 mg/dL (0.2-1.3); Blood Urea Nitrogen 21 mg/dL (7-17); Calcium 9.3 mg/dL (8.4-10.2); Carbon Dioxide 29 mmol/L (22-32); Chloride 106 mmol/L (98-107); Estimated Glomerular Filt Rate > 60.0 mL/min (>60); Globulin 3.1 g/dL (1.7-4.1); Glucose 86 mg/dL (80-110); HEMOLYSIS 21 (0-50); Lipase 164 U/L (23-300); Potassium 4.2 mmol/L (3.4-5.1); Sodium 140 mmol/L (137-145); Total Protein 7.1 g/dL (6.3-8.2)
[2021-03-24 18:49] LABS: Lactate (Lactic Acid) 0.6 mmol/L (0.7-2.1)
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
== END 2021-03-24 20:52 | disposition home or self-care (01) ==
PROVIDERS: Emergency Provider Physician Assistant; PCP Family Medicine
DX: M54.5 Low back pain (principal); Z90.722 Acquired absence of ovaries, bilateral
CPT/HCPCS: 74177; 80053; 81001; 83605; 83690; 85025; 99282; 99284

== ENCOUNTER → 2021-11-27 14:01 | Outpatient (CLI) | payer OTHER, SELFPAY ==
[2020-10-25 23:45] VITALS: BMI 21.4
== END ==
PROVIDERS: PCP Family Medicine; Visit Provider Nurse Practitioner Family
DX: R30.0 Dysuria (principal)
CPT/HCPCS: 87086; 87210

== ENCOUNTER 2022-02-09 17:09 | Emergency (ER) | payer OTHER, SELFPAY ==
[2020-10-25 23:45] VITALS: BMI 21.4
[2022-02-09 17:19] VITALS: BP 184/83; PULSE 92; RESP 18; TEMP 36.3; O2SAT 96; BMI 21.9
--- NOTE | 2022-02-09 17:26 | DI.RAD.S_ITS ---
PROCEDURE: XR CHEST 2V INDICATIONS: shortness of breath TECHNIQUE: 2 views of the chest were acquired. COMPARISON: [facility], , XR CHEST 1V, 10/25/2020, 15:48. FINDINGS: Surgical changes and devices: Left chest wall pacemaker leads are in the region of right atrium and right ventricle. Lungs and pleura: Hyperinflation and chronic emphysematous changes are seen. Chronic scarring in right upper lung field is again seen. No definite focal infiltrate. No pleural effusions or pneumothorax. Mediastinum: Mediastinal contours are normal. Heart size is normal. Bones and chest wall: No suspicious bony abnormalities. Soft tissues appear unremarkable. IMPRESSION: COPD. No definite focal infiltrate. No pleural effusion or pneumothorax. Dictated by: Minh Neely M.D. on 02/09/2022 at 17:42 Approved by: Minh Neely M.D. on 02/09/2022 at 17:42
[2022-02-09 18:01] LABS: COVID19 -Nasal RAPID Negative (Negative)
== END 2022-02-09 19:26 | disposition left against medical advice (07) ==
PROVIDERS: Emergency Provider Emergency Medicine; PCP Family Medicine
DX: R06.02 Shortness of breath (principal); Z20.822 Contact with and (suspected) exposure to COVID-19
CPT/HCPCS: 71046; 87635; 99281; C9803

== ENCOUNTER 2022-03-28 17:39 | Inpatient (IN) | payer OTHER, SELFPAY ==
[2020-10-25 23:45] VITALS: BMI 21.4
[2022-03-28] VITALS (14 sets, daily range): BP systolic 125–176; BP diastolic 62–89; PULSE 65–67; RESP 15–29; TEMP 36.2–36.3; O2SAT 96–98; BMI 22.8
--- NOTE | 2022-03-28 | DI.ECHO.S_ITS ---
[facility] +---------+ : : [address] : : : : [id number] : : : : Phone: [phone]+ Echocardiogram Report + + :Name: WESLEY MOTT Study Date: 03/29/2022 Height: 63 in : :[facility] ReadingLocation: Weight: 128 lb : : Gender: Female BSA: 1.6 m2 : :: 1940 Age: 81 yrs BP: 150/83 mmHg: :Reason For Study: TIA : :Ordering Physician: BIA, : :MILDRED Performed By: Emy Paez : :Referring: MILDRED AMEZQUITA : + + Interpretation Summary The ejection fraction is estimated to be 30-35%. Apical hypokinesis, inferior hypokinesis septal hypokinesis. Some of this could be due to pacemaker activation however the inferior wall is unlikely to be affected by pacemaker activation. Underlying coronary artery disease cannot be ruled out. There is a pacemaker lead in the right ventricle. The right ventricle is normal in size and function. There is mild mitral regurgitation. Procedure: A two-dimensional transthoracic echocardiogram with color flow and Doppler was performed. The study quality was technically adequate. Comparison is made with the echocardiogram of 10/31/2017. The patient was in sinus rhythm with heart rates between 68-75 bpm during the exam. The patient has a paced rhythm. Left Ventricle: The left ventricle is normal in size. Left ventricular wall thickness is at the upper limits of normal. The ejection fraction is estimated to be 30-35%. Apical hypokinesis, inferior hypokinesis septal hypokinesis. Some of this could be due to pacemaker activation however the inferior wall is unlikely to be affected by pacemaker activation. Underlying coronary artery disease cannot be ruled out. Diastolic function could not be accurately assessed due to paced rhythm. Right Ventricle: There is a pacemaker lead in the right ventricle. The right ventricle is normal in size and function. Atria: The left atrial size is normal. Right atrial size is normal. There is no Doppler evidence for an interatrial shunt. Mitral Valve: The mitral valve leaflets appear mildly thickened, but open well. There is mild mitral regurgitation. Aortic Valve: The aortic valve is not well visualized. There is no aortic valve stenosis. No aortic regurgitation is present. Tricuspid Valve: The tricuspid valve leaflets are thin and pliable. There is mild tricuspid regurgitation. Pulmonic Valve: The pulmonic valve is not well visualized. There is no pulmonic valvular regurgitation. Great Vessels: The aortic root is normal size. The ascending aorta could not be visualized. The IVC is of normal diameter and collapses greater than 50% with a sniff. This suggests a low right atrial pressure of 3 mm Hg. Pericardium/ Pleura There is no pericardial effusion. There is no pleural effusion. MMode/2D Measurements & Calculations LVIDd: 4.3 cm LVOT diam: 1.9 cm LVIDs: 3.6 cm Ao root diam: 3.1 cm FS: 15.4 % EPSS: 1.0 cm IVSd: 1.1 cm LVPWd: 0.90 cm LV kearney. diameter/BSA (cm/m^2): 2.7 LV sys. diameter/BSA (cm/m^2): 2.3 LA A2 area: 14.4 cm2 RA long axis: 3.7 cm LA A4 area: 15.8 cm2 RA area: 11.5 cm2 LA length (vol): 4.2 cm RA vol: 30.2 ml LA vol: 45.8 ml RA : 18.9 ml/m2 LA vol index: 28.6 ml/m2 IVC diam: 1.3 cm RVD1 (basal): 3.1 cm RVD2 (mid): 1.9 cm TAPSE: 2.0 cm Doppler Measurements & Calculations Ao V2 max: 102.5 cm/sec LVOT Max Sterling: 56.6 cm/sec Ao V2 mean: 75.7 cm/sec LV V1 max P.3 mmHg Ao max P.2 mmHg LV V1 VTI: 13.1 cm Ao mean P.5 mmHg MUSTAPHA(I,D): 1.8 cm2 Ao V2 VTI: 21.0 cm MUSTAPHA(V,D): 1.6 cm2 sev ratio: 0.62 MUSTAPHA indexed to BSA (cm^2/m^2): 1.1 MV E max sterling: 45.7 cm/sec TR max sterling: 258.2 cm/sec MV A max sterling: 92.4 cm/sec TR max P.7 mmHg MV E/A: 0.50 PA V2 max: 87.8 cm/sec Med Peak E' Sterling: 2.7 cm/sec PA V2 mean: 60.2 cm/sec E/E' med: 16.7 PA mean P.7 mmHg Lat Peak E' Sterling: 3.6 cm/sec PA pr(Accel): 43.0 mmHg E/E' lat: 12.8 E/e' average: 14.7 SV(LVOT): 38.7 ml Reading Physician:02:03 PM
--- NOTE | 2022-03-28 | DI.CT.S_ITS ---
PROCEDURE: CT ANGIO HEAD AND NECK INDICATIONS: tia TECHNIQUE: After the administration of intravenous contrast, 1 mm thick sections acquired from the aortic arch through the [place]. Post-contrast 4.5 mm thick sections then re-acquired from the foramen magnum to the vertex. 3-dimensional vgczjhl-cuhdzwwup-shijfkgrsx (MIP) and/or volume rendering reformats were acquired of the central intracranial vasculature and neck separately. For radiation dose reduction, the following was used: automated exposure control, adjustment of mA and/or kV according to patient size. COMPARISON: [facility], CT, CT CHEST ABD PEL W CON, 10/25/2020, 20:11. [facility], CT, CT HEAD/BRAIN WO CON, 10/13/2020, 16:57. [facility], CT, CT HEAD/BRAIN WO CON, 03/28/2022, 17:40. FINDINGS: Image quality: Excellent. BRAIN: CSF spaces: Basal cisterns are patent. No extra-axial fluid collections. There is moderate cerebral volume loss, with resultant ventricular and sulcal prominence. Brain: No intracranial hematoma collections, mass, or mass effect. There are subcortical, periventricular and deep white matter hypodensities consistent with moderate chronic small vessel ischemic changes. The solomon-white matter junction appears preserved. No abnormal intracranial enhancement. Skull and face: Calvarium and facial bones appear intact, without suspicious lesions. Orbits appear normal. Sinuses: Sinuses and mastoids are clear. HEAD CT ANGIOGRAPHY: Anterior circulation: Intracranial internal carotid arteries are normal in size and appear patent bilaterally. There is mild atherosclerotic calcification along the cavernous segments of the internal carotid arteries. The paired anterior cerebral arteries appear patent bilaterally. The anterior communicating artery also appears patent. The middle cerebral arteries appear patent bilaterally. No high-grade stenosis, occlusion, or filling defects. No cerebral aneurysms identified. Posterior circulation: Visualized portions of the vertebral arteries demonstrate normal caliber, and join to form a patent basilar artery. The posterior cerebral arteries appears patent bilaterally. No high-grade stenosis, occlusion, or filling defects. No cerebral aneurysms identified. NECK CT ANGIOGRAPHY: Carotid system: The great vessels demonstrate conventional anatomy as they arise from the aortic arch. There is extensive atherosclerotic vascular calcification. The origins of the common carotid arteries demonstrate bklq-va-didojdwf narrowing bilaterally. The common carotid arteries appear patent bilaterally. There is partially calcified plaque at the carotid bifurcations bilaterally. There is associated narrowing of approximately 60% by NASCET criteria within the right carotid bulb. On the left, there is mild narrowing of less than 50% in the left carotid bulb. The subsequent internal carotid arteries appear patent bilaterally. Posterior circulation: The origins of the vertebral arteries both appear patent. There is mild multifocal narrowing along the course of the left vertebral artery. The right vertebral artery appears widely patent along its course. They join to form a patent basilar artery. Soft tissues: Visualized neck and chest redemonstrates bilateral scattered bullae within the lungs with an irregular prominent bulla in the right upper lobe demonstrating eccentric soft tissue thickening. This appears similar to the prior chest CT. A few scattered ground-glass nodular opacities are also redemonstrated bilaterally in the upper lobes. There is moderate to severe narrowing at the origin of the left subclavian artery. Bones: No suspicious bony lesions. Visualized cervical spine demonstrates straightening of the cervical lordosis with minimal anterolisthesis at C2-C3, C3-C4, C4-C5, and C5-C6. There is multilevel degenerative disc disease and facet joint arthropathy. IMPRESSION: 1. No high-grade stenosis or occlusion of the central intracranial arteries. 2. Narrowing in the bilateral carotid bulbs of approximately 60% on the right and less than 50% on the left. 3. 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 Any quantitative measurements of stenosis were performed using NASCET criteria. Dictated by: Kalia Singh M.D. on 03/28/2022 at 23:27 Approved by: Kalia Singh M.D. on 03/28/2022 at 23:39
--- NOTE | 2022-03-28 17:36 | DI.CT.S_ITS ---
This report includes an Addendum and supersedes previous reports for this exam. PROCEDURE: CT HEAD/BRAIN WO CON INDICATIONS: stroke. Palpitations and facial numbness. TECHNIQUE: Noncontrast 4.5 mm thick angled axial sections acquired from the foramen magnum to the vertex, with coronal and sagittal reformats. For radiation dose reduction, the following was used: automated exposure control, adjustment of mA and/or kV according to patient size. COMPARISON: None. FINDINGS: Image quality: Excellent. CSF spaces: Basal cisterns are patent. No extra-axial fluid collections. The ventricles are symmetric in size and shape. Brain: No intracranial bleeds or masses. There is cerebral volume loss for age, with resultant ventricular and sulcal prominence. There are periventricular and deep white matter chronic small vessel ischemic changes. There is intracranial internal carotid artery atherosclerosis. No definite CT evidence of an acute infarct in a major vascular territory. Skull and face: Calvarium and visualized facial bones appear intact, without suspicious lesions. Sinuses: Visualized sinuses and mastoids are clear. IMPRESSION: No intracranial hemorrhage or other acute intracranial abnormality. Dictated by: Fan Guardado M.D. on 03/28/2022 at 17:58 Approved by: Fan Guardado M.D. on 03/28/2022 at 18:06 ADDENDUM: COMPARISON: [facility], CT, CT HEAD/BRAIN WO CON, 10/13/2020, 16:57. [facility], CT, CT ANGIO HEAD AND NECK, 03/28/2022, 22:53. Due to a technical error this patient's comparison exams were not available at the time of initial interpretation. Comparison is now made to a head CT from 10/13/2020. There has been no significant change since that exam. Dictated by: Fan Guardado M.D. on 03/29/2022 at 10:41 Approved by: Fan Guardado M.D. on 03/29/2022 at 10:46
--- NOTE | 2022-03-28 17:53 | ED.NEUROSD ---
HPI - Neuro Symptoms/Deficit <Chester Zhou MD - Last Filed: 03/31/22 12:40> General Chief Complaint: Neuro Symptoms/Deficit Stated Complaint: L facial numbness Time Seen by Provider: 03/28/22 17:40 History of Present Illness HPI Narrative: This 81-year-old woman comes to the ED with symptoms of palpitations and rapid heartbeat through the night. This afternoon at about 3:00 p.m. she noticed that her left face felt numb and she also felt that her speech was difficult to articulate. Known lives at home with her and I asked her if she would have been intelligible to me and she said that yes she would have been. She focuses on the fact that she has had thick mucus and postnasal drip which makes her mouth very dry and hard to speak sometimes. She has a past history of COPD hypertension, fibromyalgia stroke, colitis. She denies chest pain or shortness of breath or cough or fever or nausea vomiting diarrhea or abdominal pain. Related Data Previous Rx's Medication Instructions Recorded mometasone 0.1 % topical cream 1 applic topical BID PRN itching 10/31/21 #15 grams ondansetron 4 mg disintegrating 4 mg PO Q8H PRN nausea and 10/31/21 tablet vomiting #30 tabs tramadol 37.5 mg-acetaminophen 325 1 tab PO DAILY PRN pain #30 tabs 10/31/21 mg tablet (Ultracet) acyclovir 400 mg tablet 400 mg PO BID PRN cold sore #10 03/17/22 tabs atorvastatin 20 mg tablet 40 mg PO DAILY #180 tabs 03/17/22 bupropion HCl 150 mg tablet,12 hr 150 mg PO DAILY #90 ea 03/17/22 sustained-release (Wellbutrin SR) clopidogrel 75 mg tablet 75 mg PO DAILY #90 tabs 03/17/22 cyproheptadine 4 mg tablet 4 mg PO BID #180 tabs 03/17/22 diclofenac sodium 1 % topical gel 2 g topical QID #100 grams 03/17/22 (Voltaren Arthritis Pain) gabapentin 300 mg capsule 300 mg PO BEDTIME #90 caps 03/17/22 oxybutynin chloride 5 mg 5 mg PO BEDTIME #90 tabs 03/17/22 tablet,extended release 24 hr Allergies Allergy/AdvReac Type Severity Reaction Status Date / Time latex [LATEX] Allergy Mild Verified 03/28/22 18:00 amoxicillin [AMOXICILLIN] Allergy Unknown Verified 03/28/22 18:00 levofloxacin [LEVOFLOXACIN] Allergy Unknown Verified 03/28/22 18:00 niacin Allergy Unknown Verified 03/28/22 18:00 sulfamethoxazole Allergy Unknown Verified 03/28/22 18:00 [From Bactrim] tobramycin Allergy Unknown Verified 03/28/22 18:00 trimethoprim [From Bactrim] Allergy Unknown Verified 03/28/22 18:00 varenicline [From Chantix] Allergy Unknown Verified 03/28/22 18:00 Review of Systems <Chester Zhou MD - Last Filed: 03/31/22 12:40> Review of Systems Narrative: Complete review of systems is negative other than as noted above. Patient History <Chester Zhou MD - Last Filed: 03/31/22 12:40> Medical History Acne Chicken pox Chronic back pain Colon polyps COPD (chronic obstructive pulmonary disease) Depression Diverticular disease Endometriosis Fibroids Fibromyalgia Ganglion cyst Herpes (~1999) History of urinary incontinence Hypertension Irritable bowel syndrome Ischemic colitis Measles Psoriasis (~1999) Vision disorder Surgical History Anesthesia H/O: hysterectomy History of appendectomy History of bilateral oophorectomies History of tonsillectomy Pacemaker Family History Father Diabetes mellitus Mother Diabetes mellitus Brother Diabetes mellitus Sister Stroke Social History household members: children Smoking Status: Current every day smoker alcohol intake: never substance use type: does not use Smoking Status: Current every day smoker tobacco type: cigarettes alcohol intake frequency: a few times a month Substance Use Type: does not use Exam <Chester Zhou MD - Last Filed: 03/31/22 12:40> Narrative Exam Narrative: GENERAL: Alert, cooperative and in no distress. HEAD: Atraumatic. Normocephalic. EYES: Sclera are clear without icterus. Extraocular movements are full. ENT: No rhinorrhea. Oropharynx is moist. Mouth exam is benign. NECK: Supple. Full range of motion. CARDIOVASCULAR: Normal rate and rhythm without murmur gallop or rub. RESPIRATORY: Clear to auscultation. Breath sounds equal bilaterally. No wheezes, rales, or rhonchi. GASTROINTESTINAL: Abdomen soft, non-tender, nondistended. EXTREMITIES: No edema, full range of motion. No obvious trauma. BACK: Normal inspection, no CVA tenderness. NEURO: Nonfocal examination, normal speech, normal gait. Complete NIH stroke score is done and is normal. Score of 0. SKIN: No rash or erythema of visible areas PSYCH: Normally oriented. Normal range of affect. Appropriate behavior Initial Vital Signs Initial Vital Signs: Vital Signs Temperature 97.4 F L 03/28/22 17:40 Pulse Rate 65 03/28/22 17:40 Respiratory Rate 18 03/28/22 17:40 Blood Pressure 141/82 H 03/28/22 17:40 Pulse Oximetry 97 03/28/22 17:40 Oxygen Delivery Method 03/28/22 17:40 <Pipe Fox DO - Last Filed: 03/29/22 01:45> Initial Vital Signs Initial Vital Signs: Vital Signs Temperature 97.4 F L 03/28/22 17:40 Pulse Rate 65 03/28/22 17:40 Respiratory Rate 18 03/28/22 17:40 Blood Pressure 141/82 H 03/28/22 17:40 Pulse Oximetry 97 03/28/22 17:40 Oxygen Delivery Method 03/28/22 17:40 Course <Chester Zhou MD - Last Filed: 03/31/22 12:40> Orders Ordered: Discontinued Medications Acetaminophen (Acetaminophen 325 Mg Tablet) 650 mg PO Q6HR PRN PRN Reason: Fever/Mild Pain (1-3) Last Admin: 03/29/22 10:35 Dose: 650 mg Documented By: BT Aspirin (Aspirin Ec 81 Mg Tablet) 81 mg PO DAILY [facility] Last Admin: 03/29/22 09:15 Dose: Not Given Documented By: BT Atorvastatin Calcium (Atorvastatin 20 Mg Tablet) 80 mg PO BEDTIME [facility] Bupropion HCl (Bupropion Sr 150 Mg Tab) 150 mg PO BID [facility] Last Admin: 03/29/22 09:16 Dose: 150 mg Documented By: BT Clopidogrel Bisulfate (Clopidogrel 75 Mg Tablet) 75 mg PO DAILY [facility] Last Admin: 03/29/22 09:16 Dose: 75 mg Documented By: BT Enoxaparin Sodium (Enoxaparin 40 Mg/0.4 Ml Syringe) 40 mg SUBCUT DAILY [facility] Last Admin: 03/29/22 09:54 Dose: Not Given Documented By: BT Heparin Sodium/Dextrose (Heparin Drip) 25,000 unit in 500 mls @ 13.2 mls/hr IV CONT TIFFANI; Protocol Last Admin: 03/29/22 16:39 Dose: 12 units/kg/hr, 13.2 mls/hr Documented By: BT Lisinopril (Lisinopril 5 Mg Tablet) 5 mg PO DAILY [facility] Last Admin: 03/29/22 15:43 Dose: 5 mg Documented By: BT Metoprolol Succinate (Metoprolol Er 25 Mg Tablet) 25 mg PO BID [facility] Last Admin: 03/29/22 14:37 Dose: 25 mg Documented By: BT Ondansetron HCl (Ondansetron 4 Mg/2 Ml Inj) 4 mg IV Q8HR PRN PRN Reason: Nausea And Vomiting Oxybutynin Chloride (Oxybutynin 5 Mg Er Tab) 5 mg PO BEDTIME [facility] Potassium Chloride (Potassium Chloride 20 Meq Tab) 40 meq PO NOW ONE Stop: 03/29/22 09:16 Last Admin: 03/29/22 09:23 Dose: 40 meq Documented By: BT Vital Signs Vital signs: Vital Signs - 8 hr 03/28/22 17:51 03/28/22 18:00 03/28/22 18:00 Temperature Pulse Rate 65 66 Respiratory Rate 19 Blood Pressure 168/81 H Pulse Oximetry 98 Oxygen Delivery Method Oxygen Flow Rate 03/28/22 18:30 03/28/22 18:30 03/28/22 19:00 Temperature Pulse Rate 66 65 Respiratory Rate 18 15 Blood Pressure 176/75 H Pulse Oximetry 97 97 Oxygen Delivery Method Oxygen Flow Rate 03/28/22 19:01 03/28/22 19:01 03/28/22 19:30 Temperature Pulse Rate 66 65 Respiratory Rate 20 26 H Blood Pressure 125/62 Pulse Oximetry 97 97 Oxygen Delivery Method Oxygen Flow Rate 03/28/22 19:31 03/28/22 19:31 03/28/22 20:01 Temperature Pulse Rate 65 67 Respiratory Rate 29 H 21 Blood Pressure 152/89 H 174/81 H Pulse Oximetry 97 96 Oxygen Delivery Method Room Air Oxygen Flow Rate 03/28/22 20:30 03/28/22 20:30 03/28/22 21:00 Temperature Pulse Rate 65 Respiratory Rate 17 Blood Pressure 173/76 H 176/79 H Pulse Oximetry 97 Oxygen Delivery Method Oxygen Flow Rate 03/28/22 21:00 03/28/22 21:30 03/28/22 23:20 Temperature Pulse Rate 65 66 65 Respiratory Rate 17 15 22 Blood Pressure 150/83 H 160/86 H Pulse Oximetry 97 96 96 Oxygen Delivery Method Room Air Room Air Oxygen Flow Rate 03/28/22 23:25 Temperature 97.2 F L Pulse Rate 67 Respiratory Rate 18 Blood Pressure 175/83 H Pulse Oximetry 96 Oxygen Delivery Method Oxygen Flow Rate 0 <Pipe Fox, DO - Last Filed: 03/29/22 01:45> Orders Ordered: Discontinued Medications Acetaminophen (Acetaminophen 325 Mg Tablet) 650 mg PO Q6HR PRN PRN Reason: Fever/Mild Pain (1-3) Last Admin: 03/29/22 10:35 Dose: 650 mg Documented By: BT Aspirin (Aspirin Ec 81 Mg Tablet) 81 mg PO DAILY [facility] Last Admin: 03/29/22 09:15 Dose: Not Given Documented By: BT Atorvastatin Calcium (Atorvastatin 20 Mg Tablet) 80 mg PO BEDTIME [facility] Bupropion HCl (Bupropion Sr 150 Mg Tab) 150 mg PO BID [facility] Last Admin: 03/29/22 09:16 Dose: 150 mg Documented By: BT Clopidogrel Bisulfate (Clopidogrel 75 Mg Tablet) 75 mg PO DAILY [facility] Last Admin: 03/29/22 09:16 Dose: 75 mg Documented By: BT Enoxaparin Sodium (Enoxaparin 40 Mg/0.4 Ml Syringe) 40 mg SUBCUT DAILY [facility] Last Admin: 03/29/22 09:54 Dose: Not Given Documented By: BT Heparin Sodium/Dextrose (Heparin Drip) 25,000 unit in 500 mls @ 13.2 mls/hr IV CONT [facility]; Protocol Last Admin: 03/29/22 16:39 Dose: 12 units/kg/hr, 13.2 mls/hr Documented By: BT Lisinopril (Lisinopril 5 Mg Tablet) 5 mg PO DAILY [facility] Last Admin: 03/29/22 15:43 Dose: 5 mg Documented By: BT Metoprolol Succinate (Metoprolol Er 25 Mg Tablet) 25 mg PO BID [facility] Last Admin: 03/29/22 14:37 Dose: 25 mg Documented By: BT Ondansetron HCl (Ondansetron 4 Mg/2 Ml Inj) 4 mg IV Q8HR PRN PRN Reason: Nausea And Vomiting Oxybutynin Chloride (Oxybutynin 5 Mg Er Tab) 5 mg PO BEDTIME TIFFANI Potassium Chloride (Potassium Chloride 20 Meq Tab) 40 meq PO NOW ONE Stop: 03/29/22 09:16 Last Admin: 03/29/22 09:23 Dose: 40 meq Documented By: BT Vital Signs Vital signs: Vital Signs - 8 hr 03/28/22 17:51 03/28/22 18:00 03/28/22 18:00 Temperature Pulse Rate 65 66 Respiratory Rate 19 Blood Pressure 168/81 H Pulse Oximetry 98 Oxygen Delivery Method Oxygen Flow Rate 03/28/22 18:30 03/28/22 18:30 03/28/22 19:00 Temperature Pulse Rate 66 65 Respiratory Rate 18 15 Blood Pressure 176/75 H Pulse Oximetry 97 97 Oxygen Delivery Method Oxygen Flow Rate 03/28/22 19:01 03/28/22 19:01 03/28/22 19:30 Temperature Pulse Rate 66 65 Respiratory Rate 20 26 H Blood Pressure 125/62 Pulse Oximetry 97 97 Oxygen Delivery Method Oxygen Flow Rate 03/28/22 19:31 03/28/22 19:31 03/28/22 20:01 Temperature Pulse Rate 65 67 Respiratory Rate 29 H 21 Blood Pressure 152/89 H 174/81 H Pulse Oximetry 97 96 Oxygen Delivery Method Room Air Oxygen Flow Rate 03/28/22 20:30 03/28/22 20:30 03/28/22 21:00 Temperature Pulse Rate 65 Respiratory Rate 17 Blood Pressure 173/76 H 176/79 H Pulse Oximetry 97 Oxygen Delivery Method Oxygen Flow Rate 03/28/22 21:00 03/28/22 21:30 03/28/22 23:20 Temperature Pulse Rate 65 66 65 Respiratory Rate 17 15 22 Blood Pressure 150/83 H 160/86 H Pulse Oximetry 97 96 96 Oxygen Delivery Method Room Air Room Air Oxygen Flow Rate 03/28/22 23:25 Temperature 97.2 F L Pulse Rate 67 Respiratory Rate 18 Blood Pressure 175/83 H Pulse Oximetry 96 Oxygen Delivery Method Oxygen Flow Rate 0 MDM - Neuro Symptoms/Deficit <Chester Zhou MD - Last Filed: 03/31/22 12:40> Lab Data Result diagrams: 03/29/22 06:15 03/29/22 06:15 Labs: Lab Results 03/28/22 03/28/22 03/28/22 Range/Units 15:27 17:40 17:44 WBC (4.5-11.0) X10^3/uL RBC (4.0-5.2) X10^6/uL Hgb (12.0-16.0) g/dL Hct (36-46) % MCV (80-100) fL MCH (26-34) PG MCHC (30-36) % RDW (11.6-14.8) % Plt Count (150-400) X10^3/uL Neut % (Auto) (50-75) % Lymph % (Auto) (25-40) % [place] % (Auto) (3-14) % Eos % (Auto) (2-4) % Baso % (Auto) (0-2) % Neut # (Auto) (9155-4751) /uL Lymph # (Auto) (5617-7390) /uL [place] # (Auto) (0-900) /uL Eos # (Auto) (0-450) /uL Baso # (Auto) (0-100) /uL Sodium (137-145) mmol/L Potassium (3.4-5.1) mmol/L Chloride (98-107) mmol/L Carbon Dioxide (22-32) mmol/L BUN (7-17) mg/dL Creatinine (0.52-1.04) mg/dL Estimated GFR (>60) mL/min BUN/Creatinine Ratio (6-22) Glucose (80-110) mg/dL Calcium (8.4-10.2) mg/dL Total Bilirubin (0.2-1.3) mg/dL AST (14-36) IU/L ALT (<35) IU/L Alkaline Phosphatase (38-126) U/L Total Creatine Kinase 39 (30-135) U/L CK-MB (CK-2) TNP CK-MB (CK-2) Rel Index TNP Troponin I 0.068 H 0.073 H (0.01-0.034) ng/mL Total Protein (6.3-8.2) g/dL Albumin (3.5-5.0) g/dL Globulin (1.7-4.1) g/dL Albumin/Globulin Ratio (1.0-2.8) Urine Color Urine Appearance Urine pH (4.5-8.0) Ur Specific [place] (1.000-1.035) Urine Protein (Negative) Urine Glucose (UA) (Negative) g/dL Urine Ketones (NEGATIVE) Urine Occult Blood (Negative) Urine Nitrate (Negative) Urine Bilirubin (NEGATIVE) Urine Urobilinogen (0.2) E.U./dL Ur Leukocyte Esterase (NEGATIVE) Urine RBC (0-5/HPF) Urine WBC (0-5/HPF) Ur Squamous Epith Cells (0-5/HPF) Urine Bacteria (None) Ur Culture Indicated? SARS-CoV-2 (PCR) Negative (Negative) 03/28/22 03/28/22 03/28/22 Range/Units 17:44 17:44 20:45 WBC 8.8 (4.5-11.0) X10^3/uL RBC 5.08 (4.0-5.2) X10^6/uL Hgb 15.7 (12.0-16.0) g/dL Hct 45.6 (36-46) % MCV 89.8 (80-100) fL MCH 30.8 (26-34) PG MCHC 34.3 (30-36) % RDW 15.1 H (11.6-14.8) % Plt Count 222 (150-400) X10^3/uL Neut % (Auto) 57.9 (50-75) % Lymph % (Auto) 30.8 (25-40) % [place] % (Auto) 8.0 (3-14) % Eos % (Auto) 2.2 (2-4) % Baso % (Auto) 1.1 (0-2) % Neut # (Auto) 5100 (1308-8744) /uL Lymph # (Auto) 2700 (5785-8575) /uL [place] # (Auto) 700 (0-900) /uL Eos # (Auto) 200 (0-450) /uL Baso # (Auto) 100 (0-100) /uL Sodium 141 (137-145) mmol/L Potassium 3.6 (3.4-5.1) mmol/L Chloride 108 H (98-107) mmol/L Carbon Dioxide 29 (22-32) mmol/L BUN 18 H (7-17) mg/dL Creatinine 0.99 (0.52-1.04) mg/dL Estimated GFR 58 L (>60) mL/min BUN/Creatinine Ratio 18.2 (6-22) Glucose 81 (80-110) mg/dL Calcium 9.3 (8.4-10.2) mg/dL Total Bilirubin 0.7 (0.2-1.3) mg/dL AST 29 (14-36) IU/L ALT 12 (<35) IU/L Alkaline Phosphatase 114 (38-126) U/L Total Creatine Kinase (30-135) U/L CK-MB (CK-2) CK-MB (CK-2) Rel Index Troponin I 0.073 H (0.01-0.034) ng/mL Total Protein 7.5 (6.3-8.2) g/dL Albumin 4.2 (3.5-5.0) g/dL Globulin 3.3 (1.7-4.1) g/dL Albumin/Globulin Ratio 1.3 (1.0-2.8) Urine Color Urine Appearance Urine pH (4.5-8.0) Ur Specific [place] (1.000-1.035) Urine Protein (Negative) Urine Glucose (UA) (Negative) g/dL Urine Ketones (NEGATIVE) Urine Occult Blood (Negative) Urine Nitrate (Negative) Urine Bilirubin (NEGATIVE) Urine Urobilinogen (0.2) E.U./dL Ur Leukocyte Esterase (NEGATIVE) Urine RBC (0-5/HPF) Urine WBC (0-5/HPF) Ur Squamous Epith Cells (0-5/HPF) Urine Bacteria (None) Ur Culture Indicated? SARS-CoV-2 (PCR) (Negative) 03/28/22 Range/Units 22:50 WBC (4.5-11.0) X10^3/uL RBC (4.0-5.2) X10^6/uL Hgb (12.0-16.0) g/dL Hct (36-46) % MCV (80-100) fL MCH (26-34) PG MCHC (30-36) % RDW (11.6-14.8) % Plt Count (150-400) X10^3/uL Neut % (Auto) (50-75) % Lymph % (Auto) (25-40) % [place] % (Auto) (3-14) % Eos % (Auto) (2-4) % Baso % (Auto) (0-2) % Neut # (Auto) (2486-7565) /uL Lymph # (Auto) (1503-4957) /uL [place] # (Auto) (0-900) /uL Eos # (Auto) (0-450) /uL Baso # (Auto) (0-100) /uL Sodium (137-145) mmol/L Potassium (3.4-5.1) mmol/L Chloride (98-107) mmol/L Carbon Dioxide (22-32) mmol/L BUN (7-17) mg/dL Creatinine (0.52-1.04) mg/dL Estimated GFR (>60) mL/min BUN/Creatinine Ratio (6-22) Glucose (80-110) mg/dL Calcium (8.4-10.2) mg/dL Total Bilirubin (0.2-1.3) mg/dL AST (14-36) IU/L ALT (<35) IU/L Alkaline Phosphatase (38-126) U/L Total Creatine Kinase (30-135) U/L CK-MB (CK-2) CK-MB (CK-2) Rel Index Troponin I (0.01-0.034) ng/mL Total Protein (6.3-8.2) g/dL Albumin (3.5-5.0) g/dL Globulin (1.7-4.1) g/dL Albumin/Globulin Ratio (1.0-2.8) Urine Color Yellow Urine Appearance Clear Urine pH 7.0 (4.5-8.0) Ur Specific [place] 1.010 (1.000-1.035) Urine Protein 1+ H (Negative) Urine Glucose (UA) Negative (Negative) g/dL Urine Ketones Negative (NEGATIVE) Urine Occult Blood Trace-lysed (Negative) Urine Nitrate Negative (Negative) Urine Bilirubin Negative (NEGATIVE) Urine Urobilinogen 0.2 (0.2) E.U./dL Ur Leukocyte Esterase Negative (NEGATIVE) Urine RBC 1-5/hpf (0-5/HPF) Urine WBC 0-1/hpf (0-5/HPF) Ur Squamous Epith Cells 0-1 /hpf (0-5/HPF) Urine Bacteria None seen (None) Ur Culture Indicated? Cult not indicated SARS-CoV-2 (PCR) (Negative) ECG Data Interpretation: EKG obtained at 5:51 p.m. reveals a ventricular paced rhythm at 68 beats per minute. <Pipe Fox DO - Last Filed: 03/29/22 01:45> Lab Data Labs: Lab Results 03/28/22 03/28/22 03/28/22 Range/Units 15:27 17:40 17:44 WBC (4.5-11.0) X10^3/uL RBC (4.0-5.2) X10^6/uL Hgb (12.0-16.0) g/dL Hct (36-46) % MCV (80-100) fL MCH (26-34) PG MCHC (30-36) % RDW (11.6-14.8) % Plt Count (150-400) X10^3/uL Neut % (Auto) (50-75) % Lymph % (Auto) (25-40) % [place] % (Auto) (3-14) % Eos % (Auto) (2-4) % Baso % (Auto) (0-2) % Neut # (Auto) (8936-0504) /uL Lymph # (Auto) (6192-8910) /uL [place] # (Auto) (0-900) /uL Eos # (Auto) (0-450) /uL Baso # (Auto) (0-100) /uL Sodium (137-145) mmol/L Potassium (3.4-5.1) mmol/L Chloride (98-107) mmol/L Carbon Dioxide (22-32) mmol/L BUN (7-17) mg/dL Creatinine (0.52-1.04) mg/dL Estimated GFR (>60) mL/min BUN/Creatinine Ratio (6-22) Glucose (80-110) mg/dL Calcium (8.4-10.2) mg/dL Total Bilirubin (0.2-1.3) mg/dL AST (14-36) IU/L ALT (<35) IU/L Alkaline Phosphatase (38-126) U/L Total Creatine Kinase 39 (30-135) U/L CK-MB (CK-2) TNP CK-MB (CK-2) Rel Index TNP Troponin I 0.068 H 0.073 H (0.01-0.034) ng/mL Total Protein (6.3-8.2) g/dL Albumin (3.5-5.0) g/dL Globulin (1.7-4.1) g/dL Albumin/Globulin Ratio (1.0-2.8) Urine Color Urine Appearance Urine pH (4.5-8.0) Ur Specific [place] (1.000-1.035) Urine Protein (Negative) Urine Glucose (UA) (Negative) g/dL Urine Ketones (NEGATIVE) Urine Occult Blood (Negative) Urine Nitrate (Negative) Urine Bilirubin (NEGATIVE) Urine Urobilinogen (0.2) E.U./dL Ur Leukocyte Esterase (NEGATIVE) Urine RBC (0-5/HPF) Urine WBC (0-5/HPF) Ur Squamous Epith Cells (0-5/HPF) Urine Bacteria (None) Ur Culture Indicated? SARS-CoV-2 (PCR) Negative (Negative) 03/28/22 03/28/22 03/28/22 Range/Units 17:44 17:44 20:45 WBC 8.8 (4.5-11.0) X10^3/uL RBC 5.08 (4.0-5.2) X10^6/uL Hgb 15.7 (12.0-16.0) g/dL Hct 45.6 (36-46) % MCV 89.8 (80-100) fL MCH 30.8 (26-34) PG MCHC 34.3 (30-36) % RDW 15.1 H (11.6-14.8) % Plt Count 222 (150-400) X10^3/uL Neut % (Auto) 57.9 (50-75) % Lymph % (Auto) 30.8 (25-40) % [place] % (Auto) 8.0 (3-14) % Eos % (Auto) 2.2 (2-4) % Baso % (Auto) 1.1 (0-2) % Neut # (Auto) 5100 (0019-2695) /uL Lymph # (Auto) 2700 (8725-2043) /uL [place] # (Auto) 700 (0-900) /uL Eos # (Auto) 200 (0-450) /uL Baso # (Auto) 100 (0-100) /uL Sodium 141 (137-145) mmol/L Potassium 3.6 (3.4-5.1) mmol/L Chloride 108 H (98-107) mmol/L Carbon Dioxide 29 (22-32) mmol/L BUN 18 H (7-17) mg/dL Creatinine 0.99 (0.52-1.04) mg/dL Estimated GFR 58 L (>60) mL/min BUN/Creatinine Ratio 18.2 (6-22) Glucose 81 (80-110) mg/dL Calcium 9.3 (8.4-10.2) mg/dL Total Bilirubin 0.7 (0.2-1.3) mg/dL AST 29 (14-36) IU/L ALT 12 (<35) IU/L Alkaline Phosphatase 114 (38-126) U/L Total Creatine Kinase (30-135) U/L CK-MB (CK-2) CK-MB (CK-2) Rel Index Troponin I 0.073 H (0.01-0.034) ng/mL Total Protein 7.5 (6.3-8.2) g/dL Albumin 4.2 (3.5-5.0) g/dL Globulin 3.3 (1.7-4.1) g/dL Albumin/Globulin Ratio 1.3 (1.0-2.8) Urine Color Urine Appearance Urine pH (4.5-8.0) Ur Specific [place] (1.000-1.035) Urine Protein (Negative) Urine Glucose (UA) (Negative) g/dL Urine Ketones (NEGATIVE) Urine Occult Blood (Negative) Urine Nitrate (Negative) Urine Bilirubin (NEGATIVE) Urine Urobilinogen (0.2) E.U./dL Ur Leukocyte Esterase (NEGATIVE) Urine RBC (0-5/HPF) Urine WBC (0-5/HPF) Ur Squamous Epith Cells (0-5/HPF) Urine Bacteria (None) Ur Culture Indicated? SARS-CoV-2 (PCR) (Negative) 03/28/22 Range/Units 22:50 WBC (4.5-11.0) X10^3/uL RBC (4.0-5.2) X10^6/uL Hgb (12.0-16.0) g/dL Hct (36-46) % MCV (80-100) fL MCH (26-34) PG MCHC (30-36) % RDW (11.6-14.8) % Plt Count (150-400) X10^3/uL Neut % (Auto) (50-75) % Lymph % (Auto) (25-40) % [place] % (Auto) (3-14) % Eos % (Auto) (2-4) % Baso % (Auto) (0-2) % Neut # (Auto) (9162-0655) /uL Lymph # (Auto) (9918-5136) /uL [place] # (Auto) (0-900) /uL Eos # (Auto) (0-450) /uL Baso # (Auto) (0-100) /uL Sodium (137-145) mmol/L Potassium (3.4-5.1) mmol/L Chloride (98-107) mmol/L Carbon Dioxide (22-32) mmol/L BUN (7-17) mg/dL Creatinine (0.52-1.04) mg/dL Estimated GFR (>60) mL/min BUN/Creatinine Ratio (6-22) Glucose (80-110) mg/dL Calcium (8.4-10.2) mg/dL Total Bilirubin (0.2-1.3) mg/dL AST (14-36) IU/L ALT (<35) IU/L Alkaline Phosphatase (38-126) U/L Total Creatine Kinase (30-135) U/L CK-MB (CK-2) CK-MB (CK-2) Rel Index Troponin I (0.01-0.034) ng/mL Total Protein (6.3-8.2) g/dL Albumin (3.5-5.0) g/dL Globulin (1.7-4.1) g/dL Albumin/Globulin Ratio (1.0-2.8) Urine Color Yellow Urine Appearance Clear Urine pH 7.0 (4.5-8.0) Ur Specific [place] 1.010 (1.000-1.035) Urine Protein 1+ H (Negative) Urine Glucose (UA) Negative (Negative) g/dL Urine Ketones Negative (NEGATIVE) Urine Occult Blood Trace-lysed (Negative) Urine Nitrate Negative (Negative) Urine Bilirubin Negative (NEGATIVE) Urine Urobilinogen 0.2 (0.2) E.U./dL Ur Leukocyte Esterase Negative (NEGATIVE) Urine RBC 1-5/hpf (0-5/HPF) Urine WBC 0-1/hpf (0-5/HPF) Ur Squamous Epith Cells 0-1 /hpf (0-5/HPF) Urine Bacteria None seen (None) Ur Culture Indicated? Cult not indicated SARS-CoV-2 (PCR) (Negative) MDM Narrative Medical decision making narrative: [1800] ([place]) Patient received in sign out from Dr. Dubose]. I have reviewed the clinical course and performed an independent history and physical exam. Patient labs have been repeated, pacer interrogated and neuro exam continues to be unremarkable other than some confusion and delayed responses. I discussed with her daughter who states she has been acting different than her baseline for the past few days and has been having trouble findings words. Additionally her troponin remains in the indeterminate range. She will require hospitalization for ongoing evaluation and diagnostic testing including CTA/echo etc. Discharge Plan Departure Patient Disposition: Admitted as Observation Clinical Impression: Brain TIA, Elevated troponin I level Admit Date/Time: 03/29/22 00:06 Admit Provider: Myles Zhang
--- NOTE | 2022-03-28 17:59 | DI.RAD.S_ITS ---
PROCEDURE: XR CHEST 1V INDICATIONS: Palpitations TECHNIQUE: One view of the chest was acquired. COMPARISON: [facility], CT, CT CHEST ABD PEL W CON, 10/25/2020, 20:11. [facility], CR, XR CHEST 2V, 02/09/2022, 17:18. [facility], CR, XR CHEST 1V, 10/25/2020, 15:48. FINDINGS: Surgical changes and devices: Left chest dual lead pacemaker. Lungs and pleura: No definite acute airspace opacity visualized. Redemonstrated irregular opacity in the right upper lung, less conspicuous than before, likely corresponding to the pneumatocele/cavity present on the prior CT. No pleural effusions or pneumothorax. Mediastinum: Mediastinal contours appear normal. Heart size is normal. Bones and chest wall: No suspicious bony lesions. Overlying soft tissues appear unremarkable. IMPRESSION: No acute cardiopulmonary abnormality. Dictated by: Fan Guardado M.D. on 03/28/2022 at 18:50 Approved by: Fan Guardado M.D. on 03/28/2022 at 18:59
--- NOTE | 2022-03-28 18:04 | PC.NURSE ---
reference triage note. pt not complaining of symptoms at this time.
[2022-03-28 18:19] LABS: Add Manual Diff / Slide Review NO; Basophils Absolute Auto 100 /uL (0-100); Basophils Percent Auto 1.1 % (0-2); Eosinophils Absolute Auto 200 /uL (0-450); Eosinophils Percent Auto 2.2 % (2-4); Hematocrit 45.6 % (36-46); Hemoglobin 15.7 g/dL (12.0-16.0); Lymphocytes Absolute Auto 2700 /uL (1100-4500); Lymphocytes Percent Auto 30.8 % (25-40); Mean Corpuscular HGB Conc 34.3 % (30-36); Mean Corpuscular Hemoglobin 30.8 PG (26-34); Mean Corpuscular Volume 89.8 fL (80-100); Monocytes Absolute Auto 700 /uL (0-900); Neutrophils Absolute Auto 5100 /uL (1500-7000); Neutrophils Percent Auto 57.9 % (50-75); Platelet Count 222 X10^3/uL (150-400); Red Blood Cell Count 5.08 X10^6/uL (4.0-5.2); Red Cell Distribution Width 15.1 % (11.6-14.8); White Blood Cell Count 8.8 X10^3/uL (4.5-11.0)
[2022-03-28 18:22] LABS: Alanine Aminotransferase 12 IU/L (<35); Albumin 4.2 g/dL (3.5-5.0); Albumin Globulin Ratio 1.3 (1.0-2.8); Alkaline Phosphatase 114 U/L (38-126); Aspartate Aminotransferase 29 IU/L (14-36); BUN Creatinine Ratio 18.2 (6-22); Bilirubin Total 0.7 mg/dL (0.2-1.3); Blood Urea Nitrogen 18 mg/dL (7-17); Calcium 9.3 mg/dL (8.4-10.2); Carbon Dioxide 29 mmol/L (22-32); Chloride 108 mmol/L (98-107); Estimated Glomerular Filt Rate 58 mL/min (>60); Globulin 3.3 g/dL (1.7-4.1); Glucose 81 mg/dL (80-110); HEMOLYSIS < 15 (0-50); Potassium 3.6 mmol/L (3.4-5.1); Sodium 141 mmol/L (137-145); Total Protein 7.5 g/dL (6.3-8.2)
[2022-03-28 18:34] LABS: Troponin I 0.073 ng/mL (0.01-0.034)
[2022-03-28 18:47] LABS: COVID19 -Nasal RAPID Negative (Negative)
[2022-03-28 19:44] LABS: Creatine Kinase 39 U/L (30-135)
[2022-03-28 19:56] LABS: Troponin I 0.068 ng/mL (0.01-0.034)
[2022-03-28 21:29] LABS: Troponin I 0.073 ng/mL (0.01-0.034)
--- NOTE | 2022-03-28 22:47 | PM.HP.1 ---
History of Present Illness History of Present Illness Date Patient Seen: 03/28/22 Time Patient Seen: 23:00 Chief complaint: L facial numbness Narrative: Ms. Juarez is a 81W with PMH COPD, HTN, CVA who comes in to the hospital with multiple symptoms. She is vague in terms of describing what she is feeling. ED physician did discuss with family that for the last few days she has not been in her normal mental state. The patient notes that she has had left facial numbness today, along with some word finding difficulties. She also notes that she has felt palpitations starting overnight. She has no chest pain, fevers/chills. No nausea, vomiting, diarrhea. No focal extremity weakness or numbness. No shortness of breath. No dysuria. She is not sure if she feels any different since she has been in the hospital. In the ED workup was done, vitals notable for mild hypertension. Labs notable for wbc 8.8, hgb 15.7, plts 222. Creatinine 0.99. Trop 0.068->0.073->0.073. EKG showed a paced rhythm. Pacer was interrogated which showed no concerning findings. Chest xray showed no acute process. CT showed no acute process. She was admitted for further treatment. Patient History Medical History Acne Chicken pox Chronic back pain Colon polyps COPD (chronic obstructive pulmonary disease) Depression Diverticular disease Endometriosis Fibroids Fibromyalgia Ganglion cyst Herpes (~1999) History of urinary incontinence Hypertension Irritable bowel syndrome Ischemic colitis Measles Psoriasis (~1999) Vision disorder Surgical History Anesthesia H/O: hysterectomy History of appendectomy History of bilateral oophorectomies History of tonsillectomy Pacemaker Family & Social History Family History Father Diabetes mellitus Mother Diabetes mellitus Brother Diabetes mellitus Sister Stroke Social History: household members children Safety & Behavioral: Feels Safe in Current Yes Environment Tobacco & Substance use: Tobacco type cigarettes Smoking Status Current every day smoker alcohol intake never alcohol intake frequency a few times a month Substance Use Type does not use Meds Home Medications and Allergies Home Medications Medication Instructions Recorded Confirmed Type mometasone 0.1 % topical cream 1 applic topical BID PRN itching 10/31/21 03/17/22 Rx #15 grams ondansetron 4 mg disintegrating 4 mg PO Q8H PRN nausea and 10/31/21 03/17/22 Rx tablet vomiting #30 tabs tramadol 37.5 mg-acetaminophen 325 1 tab PO DAILY PRN pain #30 tabs 10/31/21 03/17/22 Rx mg tablet (Ultracet) acyclovir 400 mg tablet 400 mg PO BID PRN cold sore #10 03/17/22 03/17/22 Rx tabs atorvastatin 20 mg tablet 40 mg PO DAILY #180 tabs 03/17/22 03/17/22 Rx bupropion HCl 150 mg tablet,12 hr 150 mg PO DAILY #90 ea 03/17/22 03/17/22 Rx sustained-release (Wellbutrin SR) clopidogrel 75 mg tablet 75 mg PO DAILY #90 tabs 03/17/22 03/17/22 Rx cyproheptadine 4 mg tablet 4 mg PO BID #180 tabs 03/17/22 03/17/22 Rx diclofenac sodium 1 % topical gel 2 g topical QID #100 grams 03/17/22 03/17/22 Rx (Voltaren Arthritis Pain) gabapentin 300 mg capsule 300 mg PO BEDTIME #90 caps 03/17/22 03/17/22 Rx oxybutynin chloride 5 mg 5 mg PO BEDTIME #90 tabs 03/17/22 03/17/22 Rx tablet,extended release 24 hr Allergies Allergy/AdvReac Type Severity Reaction Status Date / Time latex [LATEX] Allergy Mild Verified 03/28/22 18:00 amoxicillin [AMOXICILLIN] Allergy Unknown Verified 03/28/22 18:00 levofloxacin [LEVOFLOXACIN] Allergy Unknown Verified 03/28/22 18:00 niacin Allergy Unknown Verified 03/28/22 18:00 sulfamethoxazole Allergy Unknown Verified 03/28/22 18:00 [From Bactrim] tobramycin Allergy Unknown Verified 03/28/22 18:00 trimethoprim [From Bactrim] Allergy Unknown Verified 03/28/22 18:00 varenicline [From Chantix] Allergy Unknown Verified 03/28/22 18:00 Review of Systems Review of Systems Narrative: 14 systems reviewed and negative aside from what is noted in HPI Exam Vital Signs (past 8 hours): - 03/28/22 17:40 07/19/22 17:51 03/28/22 18:00 Temperature 97.4 F L Pulse Rate 65 65 Respiratory Rate 18 Blood Pressure 141/82 H 168/81 H Pulse Oximetry 97 Oxygen Delivery Method Room Air 03/28/22 18:00 03/28/22 18:30 03/28/22 18:30 Temperature Pulse Rate 66 66 Respiratory Rate 19 18 Blood Pressure 176/75 H Pulse Oximetry 98 97 Oxygen Delivery Method 03/28/22 19:00 03/28/22 19:01 03/28/22 19:01 Temperature Pulse Rate 65 66 Respiratory Rate 15 20 Blood Pressure 125/62 Pulse Oximetry 97 97 Oxygen Delivery Method 03/28/22 19:30 03/28/22 19:31 03/28/22 19:31 Temperature Pulse Rate 65 65 Respiratory Rate 26 H 29 H Blood Pressure 152/89 H Pulse Oximetry 97 97 Oxygen Delivery Method 03/28/22 20:01 03/28/22 20:30 03/28/22 20:30 Temperature Pulse Rate 67 65 Respiratory Rate 21 17 Blood Pressure 174/81 H 173/76 H Pulse Oximetry 96 97 Oxygen Delivery Method Room Air 03/28/22 21:00 03/28/22 21:00 03/28/22 21:30 Temperature Pulse Rate 65 66 Respiratory Rate 17 15 Blood Pressure 176/79 H 150/83 H Pulse Oximetry 97 96 Oxygen Delivery Method Room Air Oxygen Delivery Method Room Air Narrative Exam Narrative: GEN: no acute distress HEENT: moist mucous membranes, PERRL NECK: trachea midline, no JVD CV: regular rate and rhythm, no murmurs PULM: clear bilaterally ABD: soft, nontender, nondistended, no organomegaly EXT: warm and well perfused with no edema NEURO: awake, alert, no focal deficits Objective Labs Result Diagrams: 03/28/22 17:44 03/28/22 17:44 Labs: Laboratory Results - last 24 hr 03/28/22 03/28/22 03/28/22 15:27 17:40 17:44 WBC RBC Hgb Hct MCV MCH MCHC RDW Plt Count Neut % (Auto) Lymph % (Auto) [place] % (Auto) Eos % (Auto) Baso % (Auto) Neut # (Auto) Lymph # (Auto) [place] # (Auto) Eos # (Auto) Baso # (Auto) Sodium Potassium Chloride Carbon Dioxide BUN Creatinine Estimated GFR BUN/Creatinine Ratio Glucose Calcium Total Bilirubin AST ALT Alkaline Phosphatase Total Creatine Kinase 39 CK-MB (CK-2) TNP CK-MB (CK-2) Rel Index TNP Troponin I 0.068 H 0.073 H Total Protein Albumin Globulin Albumin/Globulin Ratio SARS-CoV-2 (PCR) Negative 03/28/22 03/28/22 03/28/22 17:44 17:44 20:45 WBC 8.8 RBC 5.08 Hgb 15.7 Hct 45.6 MCV 89.8 MCH 30.8 MCHC 34.3 RDW 15.1 H Plt Count 222 Neut % (Auto) 57.9 Lymph % (Auto) 30.8 [place] % (Auto) 8.0 Eos % (Auto) 2.2 Baso % (Auto) 1.1 Neut # (Auto) 5100 Lymph # (Auto) 2700 [place] # (Auto) 700 Eos # (Auto) 200 Baso # (Auto) 100 Sodium 141 Potassium 3.6 Chloride 108 H Carbon Dioxide 29 BUN 18 H Creatinine 0.99 Estimated GFR 58 L BUN/Creatinine Ratio 18.2 Glucose 81 Calcium 9.3 Total Bilirubin 0.7 AST 29 ALT 12 Alkaline Phosphatase 114 Total Creatine Kinase CK-MB (CK-2) CK-MB (CK-2) Rel Index Troponin I 0.073 H Total Protein 7.5 Albumin 4.2 Globulin 3.3 Albumin/Globulin Ratio 1.3 SARS-CoV-2 (PCR) Assessment & Plan Assessment & Plan narrative: 81W with PMH CVA, CAD, s/p pacemaker, COPD who presents with palpitations left facial numbness and speech abnormalities. 1. Possible TIA -check NIH qshift -ordered CTA angio head/neck -MRI unable to be performed due to pacer -for now will add aspirin, to plavix/statin -check lipids, a1c -swallow screen -PT, OT, speech consult -ECHO ordered 2. Possible arrhythmia -with elevated troponin consistent with demand ischemia -elevated troponin to 0.074, now stable -no chest pain or shortness of breath -continue anti-platelet and statin as below -ordered ECHO 3. s/p pacemaker -pacemaker interrogated with no concerning arrhythmia noted 4. COPD -no respiratory symptoms currently -can ordere PRN nebs 5. CAD s/p stents -continue plavix, statin CODE: DNR Proxy: Deniese Ann, daughter I have utilized all available resources to reconcile the patient's home medications. Time Spent With Patient Critical Care time: I spent a total of [] minutes of critical care time on this patient's care today; this time is exclusive of procedural time. Quality MIPS - Admit I confirm the patient?s Advance Care Plan is present, Code status is documented, Surrogate decision maker is in patient?s record [If Yes, STOP here]: Yes
[2022-03-28 22:57] LABS: Appearance Urine UA CLEAR; Bilirubin Urine UA NEGATIVE (NEGATIVE); Color Urine UA YELLOW; Glucose Urine UA NEGATIVE (Negative); Ketones Urine UA NEGATIVE (NEGATIVE); Leukocyte Esterase Urine UA NEGATIVE (NEGATIVE); Nitrite Urine UA NEGATIVE (Negative); Occult Blood Urine UA TRACE-LYSED (Negative); Protein Urine UA 1+ (Negative); Urobilinogen Urine UA 0.2 E.U./dL (0.2)
[2022-03-28 23:08] LABS: Bacteria Urine None Seen; Culture Indicated Urine Cult Not Indicated; RBC Urine 1-5/HPF (0-5/HPF); Squamous Epithelial Cell Urine 0-1 /HPF (0-5/HPF); WBC Urine 0-1/HPF (0-5/HPF)
[2022-03-29 00:15] VITALS: BMI 21.4
[2022-03-29 04:16] VITALS: BP 126/69; PULSE 68; RESP 18; TEMP 36.5; O2SAT 94
[2022-03-29 06:24] LABS: Add Manual Diff / Slide Review NO; Basophils Absolute Auto 100 /uL (0-100); Basophils Percent Auto 1.4 % (0-2); Eosinophils Absolute Auto 200 /uL (0-450); Hematocrit 41.2 % (36-46); Hemoglobin 13.9 g/dL (12.0-16.0); Lymphocytes Absolute Auto 2100 /uL (1100-4500); Lymphocytes Percent Auto 25.2 % (25-40); Mean Corpuscular HGB Conc 33.7 % (30-36); Mean Corpuscular Hemoglobin 30.3 PG (26-34); Monocytes Absolute Auto 700 /uL (0-900); Monocytes Percent Auto 8.5 % (3-14); Neutrophils Absolute Auto 5100 /uL (1500-7000); Neutrophils Percent Auto 62.9 % (50-75); Platelet Count 195 X10^3/uL (150-400); Red Blood Cell Count 4.58 X10^6/uL (4.0-5.2); Red Cell Distribution Width 15.1 % (11.6-14.8); White Blood Cell Count 8.2 X10^3/uL (4.5-11.0)
[2022-03-29 06:35] LABS: Blood Urea Nitrogen 22 mg/dL (7-17); Calcium 8.7 mg/dL (8.4-10.2); Carbon Dioxide 27 mmol/L (22-32); Chloride 109 mmol/L (98-107); Estimated Glomerular Filt Rate 48 mL/min (>60); Glucose 115 mg/dL (80-110); HEMOLYSIS < 15 (0-50); Potassium 3.4 mmol/L (3.4-5.1); Sodium 139 mmol/L (137-145)
[2022-03-29 07:10] LABS: Cholesterol 189 mg/dL (140-199); HDL Cholesterol 47 mg/dL (40-60); LDL Cholesterol Calculated 118 mg/dL (<100); Triglycerides 118 mg/dL (35-150)
[2022-03-29 08:00] VITALS: O2SAT 96
[2022-03-29] MEDS: buPROPion SR 150 MG TAB PO (09:16)
[2022-03-29] MEDS: CLOPIDOGREL 75 MG TABLET PO (09:16)
[2022-03-29] MEDS: POTASSIUM CHLORIDE 20 MEQ TAB 40 MEQ PO (09:23)
[2022-03-29 10:27] VITALS: BP 158/71; PULSE 66; RESP 18; TEMP 36.1; O2SAT 94
[2022-03-29] MEDS: ACETAMINOPHEN 325 MG TABLET 650 MG PO (10:35)
--- NOTE | 2022-03-29 13:36 | P.PN_ITS ---
Subjective Subjective Date Patient Seen: 03/29/22 Interval history: Patient seems to be still confused with some missing details. She denies any apparent weakness. Her symptoms with the confusion, intermittent weakness are concerning. I discussed with her son, she lives alone, no immediate supervision. Son is unsure about the safety at this time but promised that he can check on her on a daily basis. Patient thinks that she can be independent. I explained to her that we need to get the physical therapy to check her functional status and decide the disposition. She will definitely benefit with an MRI, unfortunately will not be able to do MRI with pacemaker in place here at this facility because of the technical challenges. She can be transferred to [facility] to get the MRI but that probably will not change the course of treatment and disposition. It is also concerning that patient stated about potential malfunction of the pacemaker also elevated troponin during this hospitalization. Patient also stated to the nurses that she was not taking the medications as prescribed and probably stopped several medications past 6 months. Unclear if this information is reliable based on patient intermittent change in mental status. Exam Vital Signs (past 8 hours): - 03/29/22 08:00 03/29/22 10:27 Temperature 96.9 F L Pulse Rate 66 Respiratory Rate 18 Blood Pressure 158/71 H Pulse Oximetry 96 94 Oxygen Delivery Method Room Air Oxygen Flow Rate 0 0 Oxygen Delivery Method Room Air Oxygen Flow Rate 0 Narrative Exam Narrative: Patient has generalized weakness, intermittent confusion. She is able to follow simple commands. Do not think she is able to carry complex conversations. No focal weakness on examination. She is thin built. Probable systolic murmur on cardiac examination. Decreased breath sounds at the bases. Constitutional, HEENT, cardiovascular, respiratory, skin, GI, neuro, psych examination done, positive findings mentioned above. Objective Labs Result Diagrams: 03/29/22 06:15 03/29/22 06:15 Labs: Labs reviewed, positive findings noted. [facility] Medical History Acne Chicken pox Chronic back pain Colon polyps COPD (chronic obstructive pulmonary disease) Depression Diverticular disease Endometriosis Fibroids Fibromyalgia Ganglion cyst Herpes (~1999) History of urinary incontinence Hypertension Irritable bowel syndrome Ischemic colitis Measles Psoriasis (~1999) Vision disorder Surgical History Anesthesia H/O: hysterectomy History of appendectomy History of bilateral oophorectomies History of tonsillectomy Pacemaker Family History Father Diabetes mellitus Mother Diabetes mellitus Brother Diabetes mellitus Sister Stroke Social History household members: children Smoking Status: Current every day smoker alcohol intake: never substance use type: does not use Assessment & Plan Assessment & Plan narrative: Acute Heart failure, Systolic most likely secondary to underlying cardiac event, NSTEMI Type II -discussed with cardiology (Dr. Calderon), need cardiac catheterization. No signs of fluid overload. Transfer process initiated. Beta-lashon and BRIANNE inhibitor added along with the heparinization. Acute encephalopathy, unclear etiology, improving -continue neuro checks, unable to obtain MRI at this time, physical therapy and occupational therapy TIA at the time of admission, no acute neurological deficits noted at this time, still concerning for change in mental status intermittent Elevated troponin, concerning for NSTEMI type 2, troponin trending, cardiac monitoring, no signs of heart failure at this time. Cardiology Outpatient for further recommendation, add beta-lashon, patient already on dual antiplatelet therapy Patient required ongoing optimization of the therapy and length of stay greater than 2 midnights for safe discharge planning most likely subacute rehab as recommended by Physical therapy Ongoing hospitalization for acute systolic heart failure, abnormal troponin, ongoing intermittent change in mental status most likely consistent with encephalopathy. Time Spent With Patient Critical Care time: I spent a total of [] minutes of critical care time on this patient's care today; this time is exclusive of procedural time.
--- NOTE | 2022-03-29 14:07 | OT.IP.EVAL ---
Past Medical History (Last Reviewed 03/28/22 @ 22:58 by Myles Zhang MD) Acne Chicken pox Chronic back pain Colon polyps COPD (chronic obstructive pulmonary disease) Depression Diverticular disease Endometriosis Fibroids Fibromyalgia Ganglion cyst Herpes (~1999) History of urinary incontinence Hypertension Irritable bowel syndrome Ischemic colitis Measles Psoriasis (~1999) Vision disorder Surgical History (Last Reviewed 03/28/22 @ 22:58 by Myles Zhang MD) Anesthesia H/O: hysterectomy History of appendectomy History of bilateral oophorectomies History of tonsillectomy Pacemaker Occupational Therapy Inpatient Evaluation/Re-Eval M1 PT/OT-IP Prior Functional Status Start: 03/29/22 08:45 Freq: NEEDED Status: Active Protocol: Document 03/29/22 13:29 [facility] (Rec: 03/29/22 14:58 [facility] [id number]) Medical Review Prior Functional Status Medical History Reviewed Yes Communication independent, pt states recently having more difficulty with word finding Mobility and Gait Pt states uses a 4ww all the time in the house and quad cane when out in the community . Activities of Daily Living and IADL's Pt states able to do basic ADL 's on her own and has someone 1x/week to assist with laundry , dishes, trash, and changing the sheet. Social History Household Members children Living Arrangements House Number of Floors (Floors) Two Floors Number of Stairs To Enter/Railing? Pt has 7 steps with bilateral rails to the main level and can stay on that level. Home Environment Standard Height Toilet,Tub/ Shower Home Equipment Four Wheel Walker,Quad Cane, Shower Seat without Backrest, Hand Held Shower,Grab Bars Near Toilet,Grab Bars In Shower Additional Social History Comment Pt states may be able to get her grandson to stay with her initially at home to assist. M2 OT-IP Current Condition Start: 03/29/22 14:32 Freq: Status: Active Protocol: Document 03/29/22 13:29 [facility] (Rec: 03/29/22 14:58 [facility] [id number]) Occupational Therapy Current Condition Current Condition Evaluation Date 03/29/22 Treatment Diagnosis TIA Diagnosis Onset Date 03/29/22 M3 OT- IP Subjective and Pain Start: 03/29/22 14:32 Freq: Status: Active Protocol: Document 03/29/22 13:29 [facility] (Rec: 03/29/22 14:58 [facility] [id number]) OT- Subjective Occupational Therapy Visit Type Type Initial Evaluation Visit Start Time 13:29 Visit Stop Time 14:07 Total Visit Minutes 38 Occupational Therapy Visit Comments Patient Comments Pt states very tired but agreed to work with OT. Patient/Caregiver Goals TO go home. OT Pain Assessment Pain When Pain Assessed At Rest Pain Present Pain Present Pain Reported M4 OT- IP ADL's Start: 03/29/22 14:32 Freq: Status: Active Protocol: Document 03/29/22 13:29 [facility] (Rec: 03/29/22 14:58 [facility] [id number]) OT [id number] Comments OT Self-Feeding Comments Not at meal time. OT ADL-Grooming Comments OT Grooming Comments Pt states too tired to perform . OT ADL-Oral Care Comments Oral Care Comments Pt refused. OT ADL-Dressing Comments OT Dressing Comments Not performed. OT ADL-Toileting General Evaluation Toileting Ability Total Assistance Comments OT Toileting Comments Pure wick in place. Pt states at home get into the bathroom 2/night. OT ADL-Bathing Comments OT Bathing Comments Pt states is fearful of getting into her tub/shower as the wall of the tub is veryy high. Pt states feel even when she is holding onto the grab bar of the tub/shower that she feels that she is going to fall. Therefore pt states usually sponges off instead. M5 OT- IP IADL's Start: 03/29/22 14:32 Freq: Status: Active Protocol: Document 03/29/22 13:29 [facility] (Rec: 03/29/22 14:58 [facility] [id number]) OT-Instrumental Activities of Daily Living Home Safety Awareness Awareness of Need for Assistance at Home Good Awareness Ability to Problem Solve Emergency Able to Problem Solve Situations Flat Surfacer Flat Surfacer Caregiver Provides Assist Driving Driving Caregiver Provides Assist M6 OT- IP Functional Cognition Start: 03/29/22 14:32 Freq: Status: Active Protocol: Document 03/29/22 13:29 [facility] (Rec: 03/29/22 14:58 [facility] [id number]) Cognitive Factors Limiting Selfcare Function Cognitive Ability Level of Alertness Alert Patient Orientation Name,Place,Situation Attention Span Ability Capable of Focused Attention, Capable of Sustained Attention Ability to Follow Commands Able to Follow One Step Commands Cognitive Comments Cognitive Assessment Comments Pt able to answer all home safety questions accurately, and follow directions for ADL and mobility needs. Pt having word finding trouble at times . OT- Vision and Hearing OT- Hearing Assessment OT- Hearing Assessment WFL OT- Vision Assessment Visual Acuity Glasses All The Time Visual Attentiveness WFL Occular Pursuits WFL Visual [place] WFL Vision Assessment Comments Pt states needing to get new glasses but still able to read the clock accurately. M7 OT- IP Mobility and Balance Start: 03/29/22 14:32 Freq: Status: Active Protocol: Document 03/29/22 13:29 [facility] (Rec: 03/29/22 14:58 [facility] [id number]) OT- Bed Mobility Assessment Supine to Sit Supine to Sit Assist Standby Assistance Sit to Supine Sit to Supine Assist Standby Assistance OT-Transfer Assessment Sit to and From Stand Sit to and from Stand Standby Assistance,Contact Guard Assistance Transfers Transfer Ability Minimal Assistance Technique Transfer Destination Bed Devices Transfer Assistive Devices Gait Belt Comments Mobility Comments SBA to get to the edge of the bed. CGA to stand from the high bed and CGA/DORCAS to side step to get back into bed. Pt too tired to do anymore at this time. OT- Balance Assessment Sitting Balance and Reactions Static Sitting Balance Ability Good Dynamic Sitting Balance Ability Good Standing Balance and Reactions Static Standing Balance Ability Fair Dynamic Standing Balance Ability Poor M8 OT- IP Objective Assessments Start: 03/29/22 14:32 Freq: Status: Active Protocol: Document 03/29/22 13:29 [facility] (Rec: 03/29/22 14:58 [facility] [id number]) OT Gross Range of Motion Upper Extremity Range of Motion Assessment Within Functional Limits OT Strength Upper Extremity Strength Assessment Within Functional Limits OT- Coordination Assessment Upper Extremity Finger to Nose Test Within Functional Limits Finger Tapping Test Within Functional Limits OT-Muscle Tone Assessment Muscle Tone WNL Yes OT Sensation Assessment Comments Summary Comments Intact for light touch, but having trouble to get the words out to identify body parts. M9 OT- IP Assessment and Plan Start: 03/29/22 14:32 Freq: Status: Active Protocol: Document 03/29/22 13:29 [facility] (Rec: 03/29/22 14:58 [facility] [id number]) OT Summary Assessment and Plan Potential Rehabilitation Potential Good Analytic Complexity at Evaluation Moderate Summary OT Impairments Balance,Functional Cognition, Functional Mobility,Grooming, Dressing,Toileting,Bathing, Toilet Transfers,Shower Transfers,Activity Tolerance Progress Towards Goals Slow Progress due to Activity Tolerance Assessment Summary Pt MOD complexity and main barriers are step, decreased activity tolerance, and balance. Pt too tired today and only able to tolerate minimal therapy. Pt states may can have her grandson stay with her to assist. Pending progress and assist at home pt to go home with 24/7 assist and home health versus skilled rehab stay. Goals Self-Feeding Goal Independent Grooming Goal Independent Dressing Goal Independent Toileting Goal Independent Bathing Goal Standby Assistance Toilet Transfer Goal Independent Shower Transfer Goal Standby Assistance Days to Meet Goals 10 Frequency of Treatment Frequency Of Treatment Once a Day Treatment Plan OT Treatment Plan ADL Training,Functional Cognition Training,Functional Mobility,Patient/Family Education,Discharge Planning Other Treatment Recommendations and Next shower Treatment Focus Discharge Recommendations OT Discharge Recommendations Home with 24/7 Assist Available,Home Health,SNF Rehab,Home vs SNF Transportation Needs at Discharge Private Vehicle,Wheelchair/ Cabulance
[2022-03-29 14:37] VITALS: PULSE 77
[2022-03-29] MEDS: METOPROLOL ER 25 MG TABLET PO (14:37)
--- NOTE | 2022-03-29 15:05 | ST.IPIE ---
Visit Care Team Role Provider Type Mir Bingham DO Primary Care Provider Physician Specialty: Family Practice Address: [address] [place] [address], [facility] Email: [email or web address] Pipe Fox DO Emergency Provider Physician Referring Provider Specialty: Emergency Medicine Address: [address] [place] [address], [facility] Email: [email or web address] Neil Blanco MD Attending Provider Physician Specialty: Internal Medicine Address: [address] [place] [address], [facility] Email: [email or web address] Myles Zhang MD Admit Provider Physician Other Providers Specialty: Hospitalist Address: [address] [place] [address], [facility] Fax: Email: [email or web address] Past Medical History (Last Reviewed 03/28/22 @ 22:58 by Myles Zhang MD) Acne (Medical) Teen Chicken pox (Medical) Child Chronic back pain (Medical) Colon polyps (Medical) COPD (chronic obstructive pulmonary disease) (Medical) Depression (Medical) Diverticular disease (Medical) Endometriosis (Medical) Fibroids (Medical) Fibromyalgia (Medical) Ganglion cyst (Medical) Herpes (Medical ~1999) History of urinary incontinence (Medical) Hypertension (Medical) Irritable bowel syndrome (Medical) Ischemic colitis (Medical) 2016 Measles (Medical) Child Psoriasis (Medical ~1999) Vision disorder (Medical) ST IP Initial Evaluation Report INSTRUCTIONAL MATERIALS DIRECTOR Adult Cognitive Linguistic Eval Start: 03/29/22 14:00 Freq: Status: Active Protocol: Document 03/29/22 14:01 EK (Rec: 03/29/22 14:12 EK [id number]) Adult Cognitive Linguistic Evaluation Session Time Visit Start Time 11:55 Visit Stop Time 12:20 Total Visit Minutes 25 Referral Referring Provider Myles Zhang MD Reason for Referral Stroke Protocol Setting Assessment Location Acute Care Visit Type Note Type Initial evaluation Next Note Type Next Note Type Treatment Note Patient Information Identification Type Name,Wristband Patient History Patient is a 81 female. Per H& P: ?[past medical history includes] COPD, HTN, CVA and comes in to the hospital with multiple symptoms. She is vague in terms of describing what she is feeling. ED physician did discuss with family that for the last few days she has not been in her normal mental state. The patient notes that she has had left facial numbness today, along with some word finding difficulties. She also notes that she has felt palpitations starting overnight. She has no chest pain, fevers/chills, nausea, vomiting, diarrhea. No focal extremity weakness or numbness. No shortness of breath?. Pt smokes regularly. CT scan showed no intracranial hemorrhage or other acute intracranial abnormality. Language(s) Spoken in the Home Malay Vision Vision Status Impaired Comments Wears glasses Subjective Patient Report Prior to entering the room, NSG reported that pt's NIH score was 0 last time the pt was assessed. Pt was laying in bed upon INSTRUCTIONAL MATERIALS DIRECTOR and INSTRUCTIONAL MATERIALS DIRECTOR production intern arrival. Pt was repositioned to upright position for swallow screen and informal language assessment. Pt reported she was tired and needed to take a nap. Mental Status Alert,Responsive,Cooperative Assessment Oral Motor Examination Completed No Results Bedside swallow screen was performed. Pt chewed and swallowed multiple bites of a natalie cracker in a timely and efficient manner. No overt signs of penetration/ aspiration were noted with the cracker or with sips of water . Pt reported that she occasionally coughs but that it is related to her COPD. No oral residue was noted after PO trials and the underside of the pt's dentures was clear following the trials. However, pt reported that she wants to get her dentures adjusted to prevent residue from collecting and to make her speech a little easier. Findings/Results Language Function Within functional limits Cognitive Function Within functional limits Findings Pt's cognition and language appeared to be WFL for ego- centric conversation. Pt described having ongoing WFD for the last several months. She reported these difficulties happen regularly in conversation, though no instances of WFD were noted in today's assessment . In confrontational naming, the pt successfully named 4/5 objects and the one she missed was a word that was similar to the target response (pt said business card for name -tag). During categorical naming task, pt listed 12 different items. Suspect interruptions during assessment and pt's fatigue impacted her word recall. Provided education RE word- finding strategies and several handouts for practicing word recall. Recommended outpatient speech therapy to address WFD, when this was suggested the pt stated that she was not interested. Cognitive Communication Deficits Self-awareness of Cognitive- Predictive awareness (able to Communication Deficits predict problem; impact of impairments) Prognosis Prognosis Good Based on Cognitive status,Duration of symptoms/severity Plan of Care Speech-Language Treatment Yes Frequency Daily over hospital stay targeting word-recall Patient/Caregiver Education Described results of evaluation,Patient expressed understanding of evaluation, Patient expressed agreement with goals and treatment plans ,Patient requires further education/training Short Term Goals 1. Pt will perform word- finding exercises to improve her word-recall abilities. Closing Supervisor Goals 1. Pt will demonstrate communication skills needed to participate in medical care decisions. Discharge Recommendations Home INSTRUCTIONAL MATERIALS DIRECTOR Clinical Instructor Line Start: 03/29/22 15:04 Freq: Status: Active Protocol: Document 03/29/22 15:04 JACKELYN (Rec: 03/29/22 15:05 JACKELYN [id number]) Clinical Instructor Signature Clinical Instructor Clinical Instructor Yes
[2022-03-29 15:30] VITALS: BP 146/89; PULSE 80; RESP 16; TEMP 35.8; O2SAT 95
[2022-03-29 15:39] LABS: Troponin I 0.031 ng/mL (0.01-0.034)
[2022-03-29 15:43] VITALS: BP 146/89; PULSE 77
[2022-03-29] MEDS: lisinopriL 5 MG TABLET PO (15:43)
--- NOTE | 2022-03-29 16:14 | PT.IIE ---
Surgical History (Last Reviewed 03/28/22 @ 22:58 by Myles Zhang MD) Anesthesia H/O: hysterectomy History of appendectomy History of bilateral oophorectomies History of tonsillectomy Pacemaker Medical History (Last Reviewed 03/28/22 @ 22:58 by Myles Zhang MD) Acne Chicken pox Chronic back pain Colon polyps COPD (chronic obstructive pulmonary disease) Depression Diverticular disease Endometriosis Fibroids Fibromyalgia Ganglion cyst Herpes (~1999) History of urinary incontinence Hypertension Irritable bowel syndrome Ischemic colitis Measles Psoriasis (~1999) Vision disorder Physical Therapy Inpatient Evaluation/Re-Eval M1 PT/OT-IP Prior Functional Status Start: 03/29/22 08:45 Freq: NEEDED Status: Active Protocol: Document 03/29/22 13:29 [facility] (Rec: 03/29/22 14:58 [facility] [id number]) Medical Review Prior Functional Status Medical History Reviewed Yes Communication independent, pt states recently having more difficulty with word finding Mobility and Gait Pt states uses a 4ww all the time in the house and quad canw when out in the community . Activities of Daily Living and IADL's Pt states able to do basic ADL 's on her own and has someone 1x/week to assist with laundry , dishes, trash, and changing the sheet. Social History Household Members children Living Arrangements House Number of Floors (Floors) Two Floors Number of Stairs To Enter/Railing? Pt has 7 steps with bilateral rails to the main level and can stay on that level. Home Environment Standard Height Toilet,Tub/ Shower Home Equipment Four Wheel Walker,Quad Cane, Shower Seat without Backrest, Hand Held Shower,Grab Bars Near Toilet,Grab Bars In Shower Additional Social History Comment Pt states may be able to get her grandson to stay with her initially at home to assist. M2 PT-IP Current Condition Start: 03/29/22 08:45 Freq: NEEDED Status: Active Protocol: Document 03/29/22 15:58 SAK (Rec: 03/29/22 16:13 SAK [id number]) Physical Therapy Current Condition Current Condition Evaluation Date 03/29/22 Treatment Diagnosis left facial numbness Onset Date 03/28/22 M3 PT-IP Subjective Start: 03/29/22 08:45 Freq: NEEDED Status: Active Protocol: Document 03/29/22 15:58 SAK (Rec: 03/29/22 16:13 [facility] [id number]) Subjective Physical Therapy Visit Type Type Initial Evaluation Visit Start Time 09:45 Visit Stop Time 10:14 Total Visit Minutes 29 Therapy Pain Assessment Pain When Pain Assessed During Mobility Pain Present Pain Present Pain Reported Location tail bone Intensity 7 Scale Used Numeric (0 - 10) Description Aching,Chronic,Pressure Pain Behaviors Facial Grimacing,Wincing Pain Management Techniques Apply Cold,Apply Heat,Timing of Activity with Medications M4 PT-IP Mobility and Gait Start: 03/29/22 08:45 Freq: NEEDED Status: Active Protocol: Document 03/29/22 15:58 [facility] (Rec: 03/29/22 16:13 [facility] [id number]) PT-Bed Mobility Assessment Supine to Sit Supine to Sit Standby Assistance Sit to Supine Sit to Supine Contact Guard Assistance PT-Transfer Assessment Sit to and From Stand Sit to and from Stand Contact Guard Assistance Equipment Transfer Assistive Device Large Based Quad Cane Transfer Ability Level of Assist Contact Guard Assistance Gait Assessment Gait Gait Assistance Required: Contact Guard Assist,Minimum Assistance Distance (Feet) 20 Assistive Devices Assistive Device Large Based Quad Cane Gait Deviations General Gait Pattern Antalgic,Decreased Stride Length,Decreased Feet Clearance,Flexed Trunk Factors Limiting Gait Function Factors Limiting Gait Function Decreased Activity Tolerance, Pain PT-Balance Assessment Sitting Balance and Reactions Static Sitting Balance Ability Good Dynamic Sitting Balance Ability Good Standing Balance and Reactions Static Standing Balance Ability Fair Dynamic Standing Balance Ability Fair Device Used LBQC M5 PT-IP Objective Assessments Start: 03/29/22 08:45 Freq: NEEDED Status: Active Protocol: Document 03/29/22 15:58 [facility] (Rec: 03/29/22 16:13 [facility] [id number]) Orientation Orientation/Cognition Level of Alertness Alert Orientation Name,Place,Situation Language Function Ability No Deficits Noted Safety Awareness Understands Safety Issues Gross Range of Motion Upper Extremity ROM Assessment Within Functional Limits Lower Extremity ROM Assessment Within Functional Limits Strength Upper Extremity Strength Assessment Within Functional Limits Lower Extremity Strength Assessment Within Functional Limits Comments Strength Comments generalized weakness with decreased muscle endurance causing decreased activity tolerance. Sensation Assessment Comments Sensation Comments no drift of UE's or LE's, good coordination noted with seated testing Muscle Tone Muscle Tone WNL Yes M7 PT-IP Assessment and Plan Start: 03/29/22 08:45 Freq: NEEDED Status: Active Protocol: Document 03/29/22 15:58 [facility] (Rec: 03/29/22 16:13 [facility] [id number]) PT Summary Assessment and Plan Summary Impairments Pain,Strength,Balance Assessment Summary Patient in hospital due to left sided facial numbness which has since resolved. She states she feels like she is moving as well as she did prior to hospitalization; used FWW at home and LBQC in community but reports minimal activity level. Has LBQC in room and requests to use that for gait today; her gait was antalgic with significant forward flexion at waist and she requested returning to bed due to pain. Was too fatigued to participate in PT in the afternoon. Has no focal weakness but demonstrates generalized weakness, decreased safety, and difficulty with gait; feel she needs to use FWW and may require SNF rehab prior to being able to safely discharge home. If discharged home feel she may need significant assistance for safety plus Home Health PT. Goals Bed Mobility Goal Independent Transfer Goal Independent Gait Goal Independent Gait Distance 150 Frequency of Treatment Frequency Of Treatment Once a Day Treatment Plan Physical Therapy Treatment Plan Bed Mobility Training,Transfer Training,Gait Training, Therapeutic Exercise,Balance Retraining,Discharge Planning Recommendations To Nursing Amount of Assist Needed 1 Person Assist Discharge Recommendations PT Discharge Recommendations Home Health,Home vs SNF
[2022-03-29 16:16] LABS: PTT Partial Thromboplastin Tim 30 SECONDS (26.4-36.2)
[2022-03-29] MEDS: HEPARIN DRIP 25,000 UNIT/500 ML IV.SOLN 13.2 UNIT IV (16:39)
--- NOTE | 2022-03-29 16:51 | PM.DS.1 ---
History of Present Illness History of Present Illness Date Patient Seen: 03/29/22 Time Patient Seen: 23:00 Chief complaint: L facial numbness Narrative: Ms. Juarez is a 81W with PMH COPD, HTN, CVA who comes in to the hospital with multiple symptoms. She is vague in terms of describing what she is feeling. ED physician did discuss with family that for the last few days she has not been in her normal mental state. The patient notes that she has had left facial numbness today, along with some word finding difficulties. She also notes that she has felt palpitations starting overnight. She has no chest pain, fevers/chills. No nausea, vomiting, diarrhea. No focal extremity weakness or numbness. No shortness of breath. No dysuria. She is not sure if she feels any different since she has been in the hospital. In the ED workup was done, vitals notable for mild hypertension. Labs notable for wbc 8.8, hgb 15.7, plts 222. Creatinine 0.99. Trop 0.068->0.073->0.073. EKG showed a paced rhythm. Pacer was interrogated which showed no concerning findings. Chest xray showed no acute process. CT showed no acute process. She was admitted for further treatment. Discharge Providers Provider Date of admission: 03/29/22 00:06 Discharge Date: 03/29/22 Primary care physician: Mir Bingham DO Consults: 03/28/22 22:42 Consult to Discharge Planning Routine Comment: Consult to Occupational Therapy Evaluate & Treat Comment: Physician Instructions: Evaluate and treat Consult to Physical Therapy Evaluate & Treat Comment: Physician Instructions: Evaluate and Treat Consult to Speech Therapy Evaluate & Treat Comment: Physician Instructions: Evaluate and treat 03/29/22 13:23 Consult to SCARRER - [employer] Operator Routine Comment: SNF placement as recommended by PT/OT Discharge provider: Neil Blanco MD Summary Hospital Course Discharge Diagnosis: Acute Heart failure, Systolic most likely secondary to underlying cardiac event, NSTEMI Type II -discussed with cardiology (Dr. Calderon), need cardiac catheterization.? No signs of fluid overload.? Transfer process initiated.? Beta-lashon and BRIANNE inhibitor added along with the heparinization. Acute encephalopathy, unclear etiology, improving -continue neuro checks, unable to obtain MRI at this time, physical therapy and occupational therapy TIA at the time of admission, no acute neurological deficits noted at this time, still concerning for change in mental status intermittent Elevated troponin, concerning for NSTEMI type 2, troponin trending, cardiac monitoring, no signs of heart failure at this time.? Cardiology Outpatient for further recommendation, add beta-lashon, patient already on dual antiplatelet therapy Patient required ongoing optimization of the therapy and length of stay greater than 2 midnights for safe discharge planning most likely subacute rehab as recommended by Physical therapy Ongoing hospitalization for acute systolic heart failure, abnormal troponin, ongoing intermittent change in mental status most likely consistent with encephalopathy. Time Spent With Patient Exam Vital Signs (past 8 hours): - 03/29/22 10:27 03/29/22 14:37 03/29/22 15:30 Temperature 96.9 F L 96.4 F L Pulse Rate 66 77 80 Respiratory Rate 18 16 Blood Pressure 158/71 H 146/89 H Pulse Oximetry 94 95 Oxygen Flow Rate 0 0 03/29/22 15:43 Temperature Pulse Rate 77 Respiratory Rate Blood Pressure 146/89 H Pulse Oximetry Oxygen Flow Rate Oxygen Delivery Method Room Air Oxygen Flow Rate [address] scan - abdomen: Radiologist's impression: 1 ? Diagnostics Subcategory All Activity ??:?? All Time ??:?? All Subcategories Filter Laboratory Imaging Microbiology Pathology Blood Bank Tests Cardiovascular Other Specialty DATE TYPE STATUS REF RANGE/AUTHOR Hx 03/28/22 17:59 Chest X-Ray Signed Fan Guardado 03/28/22 17:[address] Signed Fan Guardado 03/28/22 00:00 Head/Neck CTA Signed Kalia Singh 03/28/22 00:00 Echocardiogram Ultrasound Signed Nael Power 02/09/22 17:26 Chest X-Ray Signed Minh Neely 03/24/21 17:00 Abdomen/Pelvis CT Signed Rj Ambrocio 10/27/20 10:35 Chest/Abdomen X-ray Signed Lilo Collins 10/26/20 08:28 Chest/Abdomen X-ray Signed Armand Rosenberg 10/25/20 16:41 Chest/Abdomen/Pelvis CT Signed Roberto Bowens 10/25/20 15:39 Chest X-Ray Signed Roberto Bowens 10/25/20 15:39 Abdomen X-Ray Signed Hung Gunderson 10/25/20 00:00 Abdomen X-Ray Signed Hung Gunderson 10/13/20 16:[address] Signed Armand Rosenberg 10/13/20 16:33 Chest X-Ray Signed Rj Ambrocio 10/13/20 16:[address] Signed Armand Rosenberg 02/04/20 16:03 Cervical Spine X-Ray Signed Minh Neely 07/27/19 19:06 Abdomen/Pelvis CT Signed Lilo Collins 11/15/18 00:[address] Signed Hung Gunderson 09/24/18 00:00 Lumbar Spine X-Ray Signed Delilah Garcia 09/24/18 00:00 Hip X-Ray Signed Delilah Garcia Kathleen K Acute 81, F?1940 MRN#? [id number] ADM IN,?AC??209?-1? 160.02cm 55kg BSA: 1.56m? BMI: 21.5kg/m? Acc#? [id number] Do Not Resuscitate Historical Visits Allergies latex (LATEX) amoxicillin (AMOXICILLIN) levofloxacin (LEVOFLOXACIN) niacin sulfamethoxazole (From Bactrim) tobramycin trimethoprim (From Bactrim) varenicline (From Chantix) Home Meds Not Confirmed Prescription Monitoring Program Total 0 MME/Day Incomplete MEDICATIONS (INSTRUCTIONS) LAST TAKEN Active ??acyclovir 400 mg tablet ??400 mgPOBIDPRNcold sore#10 tabs ??atorvastatin 20 mg tablet ??40 mgPODAILY#180 tabs ??bupropion HCl 150 mg tablet,12 hr sustained-release ??150 mgPODAILY#90 ea ??clopidogrel 75 mg tablet ??75 mgPODAILY#90 tabs ??cyproheptadine 4 mg tablet ??4 mgPOBID#180 tabs ??diclofenac sodium 1 % topical gel ??2 gtopicalQID#100 grams ??gabapentin 300 mg capsule ??300 mgPOBEDTIME#90 caps ??mometasone 0.1 % topical cream ??1 applictopicalBIDPRNitching#15 grams ??ondansetron 4 mg disintegrating tablet ??4 [id number] and vomiting#30 tabs ??oxybutynin chloride 5 mg tablet,extended release 24 hr ??5 mgPOBEDTIME#90 tabs ??tramadol 37.5 mg-acetaminophen 325 mg tablet ??1 tabPODAILYPRNpain#30 tabs 0 MME/Day Special Indicators No Data to Display Vital Signs Temp 96.4 F L (97.6 F - 99.6 F) 03/29/22 15:30 BP 146/89 mmHg H (90/60 - 140/90) 03/29/22 15:43 Pulse 77 beats/min (60 - 90) 03/29/22 15:43 Resp Rate 16 breaths/min (12 - 24) 03/29/22 15:30 Pain Intensity 7 03/29/22 15:58 O2 Sat 95 % (91 - 100) 03/29/22 15:30 O2 Rate 0 L/min 03/29/22 15:30 Height 160.02 cm 03/29/22 00:15 Weight 55 kg 03/29/22 00:19 BMI 21.4 03/29/22 00:15 Lab Results Last 24 Hrs Most Recent Hematology WBC (4.5-11.0) 8.2 X10^3/uL?(+) Today 06:15 RBC (4.0-5.2) 4.58 X10^6/uL?(+) Today 06:15 Hgb (12.0-16.0) 13.9 g/dL?(+) Today 06:15 Hct (36-46) 41.2 %?(+) Today 06:15 MCV (80-100) 90.0 fL?(+) Today 06:15 MCH (26-34) 30.3 PG?(+) Today 06:15 MCHC (30-36) 33.7 %?(+) Today 06:15 RDW (11.6-14.8) 15.1 % H?(+) Today 06:15 Plt Count (150-400) 195 X10^3/uL?(+) Today 06:15 Neut % (Auto) (50-75) 62.9 %?(+) Today 06:15 Lymph % (Auto) (25-40) 25.2 %?(+) Today 06:15 [place] % (Auto) (3-14) 8.5 %?(+) Today 06:15 Eos % (Auto) (2-4) 2.0 %?(+) Today 06:15 Baso % (Auto) (0-2) 1.4 %?(+) Today 06:15 Neut # (Auto) (6283-5404) 5100 /uL?(+) Today 06:15 Lymph # (Auto) (9367-6549) 2100 /uL?(+) Today 06:15 [place] # (Auto) (0-900) 700 /uL?(+) Today 06:15 Eos # (Auto) (0-450) 200 /uL?(+) Today 06:15 Baso # (Auto) (0-100) 100 /uL?(+) Today 06:15 Coagulation APTT (26.4-36.2) 30 SECONDS Today 15:50 Chemistry Sodium (137-145) 139 mmol/L?(+) Today 06:15 Potassium (3.4-5.1) 3.4 mmol/L?(+) Today 06:15 Chloride (98-107) 109 mmol/L H?(+) Today 06:15 Carbon Dioxide (22-32) 27 mmol/L?(+) Today 06:15 BUN (7-17) 22 mg/dL H?(+) Today 06:15 Creatinine (0.52-1.04) 1.16 mg/dL H?(+) Today 06:15 Estimated GFR (>60) 48 mL/min L?(+) Today 06:15 BUN/Creatinine Ratio (6-22) 19.0?(+) Today 06:15 Glucose (80-110) 115 mg/dL H?(+) Today 06:15 Calcium (8.4-10.2) 8.7 mg/dL?(+) Today 06:15 Total Bilirubin (0.2-1.3) 0.7 mg/dL 03/28/22 17:44 AST (14-36) 29 IU/L 03/28/22 17:44 ALT (<35) 12 IU/L 03/28/22 17:44 Alkaline Phosphatase (38-126) 114 U/L 03/28/22 17:44 Troponin I (0.01-0.034) 0.031 ng/mL?(+) Today 14:55 Total Protein (6.3-8.2) 7.5 g/dL 03/28/22 17:44 Albumin (3.5-5.0) 4.2 g/dL 03/28/22 17:44 Globulin (1.7-4.1) 3.3 g/dL 03/28/22 17:44 Albumin/Globulin Ratio (1.0-2.8) 1.3 03/28/22 17:44 Triglycerides (35-150) 118 mg/dL Today 06:15 Cholesterol (140-199) 189 mg/dL Today 06:15 LDL Cholesterol, Calc (<100) 118 mg/dL H Today 06:15 HDL Cholesterol (40-60) 47 mg/dL Today 06:15 Urines Urine Color Yellow 03/28/22 22:50 Urine Appearance Clear 03/28/22 22:50 Urine pH (4.5-8.0) 7.0 03/28/22 22:50 Ur Specific [place] (1.000-1.035) 1.010 03/28/22 22:50 Urine Protein (Negative) 1+ H 03/28/22 22:50 Urine Glucose (UA) (Negative) Negative g/dL 03/28/22 22:50 Urine Ketones (NEGATIVE) Negative 03/28/22 22:50 Urine Occult Blood (Negative) Trace-lysed 03/28/22 22:50 Urine Nitrate (Negative) Negative 03/28/22 22:50 Urine Bilirubin (NEGATIVE) Negative 03/28/22 22:50 Urine Urobilinogen (0.2) 0.2 E.U./dL 03/28/22 22:50 Ur Leukocyte Esterase (NEGATIVE) Negative 03/28/22 22:50 Urine RBC (0-5/HPF) 1-5/hpf 03/28/22 22:50 Urine WBC (0-5/HPF) 0-1/hpf 03/28/22 22:50 Ur Squamous Epith Cells (0-5/HPF) 0-1 /hpf 03/28/22 22:50 Urine Bacteria (None) None seen 03/28/22 22:50 Ur Culture Indicated? Cult not indicated 03/28/22 22:50 Serology SARS-CoV-2 (PCR) (Negative) Negative? 03/28/22 17:40 Problems ? ONSET Brain TIA Elevated troponin I level History of urinary incontinence Ischemic colitis Ganglion cyst COPD (chronic obstructive pulmonary disease) Hypertension Depression Vision disorder Psoriasis ~1999 Fibromyalgia Chronic back pain Irritable bowel syndrome Diverticular disease Cellulitis Stroke Urinary tract infection Abdominal pain LEFT SIDED COLITIS WITHOUT COMPLICATIONS Acute ischemic colitis Abdominal pain Colitis History of bilateral oophorectomies H/O: hysterectomy Pacemaker Ordering Provider: Mildred Amezquita MD ? [facility]? +---------+ : ? :? [address] ? : ? : : ? :? [place] ? : ? : : ? :? [id number] ? : ? : : ? : ? Phone: [phone] : ? : +---------[phone]? [phone]? +---------+ ? Echocardiogram Report + + :Name: WESLEY JUAREZ? ? Study Date: 03/29/2022 ? ? ? Height: 63 in? : :[facility] ? ? ? ReadingLocation: ? Weight: 128 lb : : ? Gender: Female ? BSA: 1.6 m2? ? : :: 1940? Age: 81 yrs? BP: 150/83 mmHg: :Reason For Study: TIA? : :Ordering Physician: BIA? : :MILDRED ? Performed By: Emy Paez? : :Referring: MILDRED AMEZQUITA? : + + Interpretation Summary The ejection fraction is estimated to be 30-35%. Apical hypokinesis, inferior hypokinesis septal hypokinesis. Some of this could be due to pacemaker activation however the inferior wall is unlikely to be affected by pacemaker activation. Underlying coronary artery disease cannot be ruled out. There is a pacemaker lead in the right ventricle. The right ventricle is normal in size and function. There is mild mitral regurgitation. ? Procedure: ? A two-dimensional transthoracic echocardiogram with color flow and Doppler was performed. The study quality was technically adequate. Comparison is made with the echocardiogram of 10/31/2017. The patient was in sinus rhythm with heart rates between 68-75 bpm during the exam. The patient has a paced rhythm. Left Ventricle: ? The left ventricle is normal in size. Left ventricular wall thickness is at the upper limits of normal. The ejection fraction is estimated to be 30-35%. Apical hypokinesis, inferior hypokinesis septal hypokinesis. Some of this could be due to pacemaker activation however the inferior wall is unlikely to be affected by pacemaker activation. Underlying coronary artery disease cannot be ruled out. Diastolic function could not be accurately assessed due to paced rhythm. Right Ventricle: ? There is a pacemaker lead in the right ventricle. The right ventricle is normal in size and function. Atria: ? The left atrial size is normal. Right atrial size is normal. There is no Doppler evidence for an interatrial shunt. Mitral Valve: ? The mitral valve leaflets appear mildly thickened, but open well. There is mild mitral regurgitation. Aortic Valve: ? The aortic valve is not well visualized. There is no aortic valve stenosis. No aortic regurgitation is present. Tricuspid Valve: ? The tricuspid valve leaflets are thin and pliable. There is mild tricuspid regurgitation. Pulmonic Valve: ? The pulmonic valve is not well visualized. There is no pulmonic valvular regurgitation. Great Vessels: ? The aortic root is normal size. The ascending aorta could not be visualized. The IVC is of normal diameter and collapses greater than 50% with a sniff. This suggests a low right atrial pressure of 3 mm Hg. Pericardium/ Pleura ? There is no pericardial effusion. There is no pleural effusion. ? MMode/2D Measurements & Calculations LVIDd: 4.3 cm ? LVOT diam: 1.9 cm LVIDs: 3.6 cm ? Ao root diam: 3.1 cm FS: 15.4 % EPSS: 1.0 cm IVSd: 1.1 cm LVPWd: 0.90 cm LV kearney. diameter/BSA (cm/m^2): 2.7 LV sys. diameter/BSA (cm/m^2): 2.3 ? LA A2 area: 14.4 cm2? RA long axis: 3.7 cm LA A4 area: 15.8 cm2? RA area: 11.5 cm2 LA length (vol): 4.2 cm ? RA vol: 30.2 ml LA vol: 45.8 ml ? RA : 18.9 ml/m2 LA vol index: 28.6 ml/m2? IVC diam: 1.3 cm ? RVD1 (basal): 3.1 cm RVD2 (mid): 1.9 cm TAPSE: 2.0 cm ? Doppler Measurements & Calculations Ao V2 max: 102.5 cm/sec ? LVOT Max [place]: 56.6 cm/sec Ao V2 mean: 75.7 cm/sec ? LV V1 max P.3 mmHg Ao max P.2 mmHg ? LV V1 VTI: 13.1 cm Ao mean P.5 mmHg? MUSTAPHA(I,D): 1.8 cm2 Ao V2 VTI: 21.0 cm? MUSTAPHA(V,D): 1.6 cm2 ? sev ratio: 0.62 ? MUSTAPHA indexed to BSA (cm^2/m^2): 1.1 ? MV E max sterling: 45.7 cm/sec ? TR max sterling: 258.2 cm/sec MV A max [place]: 92.4 cm/sec ? TR max P.7 mmHg MV E/A: 0.50? PA V2 max: 87.8 cm/sec Med Peak E' [place]: 2.7 cm/sec ? ? ? PA V2 mean: 60.2 cm/sec E/E' med: 16.7? PA mean P.7 mmHg Lat Peak E' [place]: 3.6 cm/sec ? ? ? PA pr(Accel): 43.0 mmHg E/E' lat: 12.8 E/e' average: 14.7 ? SV(LVOT): 38.7 ml ? Reading Physician:02:[address] scan - head: Radiologist's impression: PROCEDURE:? CT ANGIO HEAD AND NECK ? INDICATIONS:? tia ? TECHNIQUE:? After the administration of intravenous contrast, 1 mm thick sections acquired from the aortic arch through the [place] of [place].? Post-contrast 4.5 mm thick sections then re-acquired from the foramen magnum to the vertex.? 3-dimensional uzmopjh-kvofxpuuj-osbieszwxu (MIP) and/or volume rendering reformats were acquired of the central intracranial vasculature and neck separately. For radiation dose reduction, the following was used:? automated exposure control, adjustment of mA and/or kV according to patient size.? ? COMPARISON:? [facility], CT, CT CHEST ABD PEL W CON, 10/25/2020, 20:11.? [facility], CT, CT HEAD/BRAIN WO CON, 10/13/2020, 16:57.? [facility], CT, CT HEAD/BRAIN WO CON, 03/28/2022, 17:40. ? FINDINGS:? Image quality:? Excellent.? ? BRAIN:? CSF spaces:? Basal cisterns are patent.? No extra-axial fluid collections.? There is moderate cerebral volume loss, with resultant ventricular and sulcal prominence.? ? Brain:? No intracranial hematoma collections, mass, or mass effect.? There are subcortical, periventricular and deep white matter hypodensities consistent with moderate chronic small vessel ischemic changes.? The solomon-white matter junction appears preserved. ?No abnormal intracranial enhancement. ? Skull and face:? Calvarium and facial bones appear intact, without suspicious lesions.? Orbits appear normal.? ? Sinuses:? Sinuses and mastoids are clear.? ? HEAD CT ANGIOGRAPHY:? Anterior circulation:? Intracranial internal carotid arteries are normal in size and appear patent bilaterally.? There is mild atherosclerotic calcification along the cavernous segments of the internal carotid arteries.? The paired anterior cerebral arteries appear patent bilaterally.? The anterior communicating artery also appears patent. The middle cerebral arteries appear patent bilaterally.? No high-grade stenosis, occlusion, or filling defects.? No cerebral aneurysms identified. ? Posterior circulation:? Visualized portions of the vertebral arteries demonstrate normal caliber, and join to form a patent basilar artery.? The posterior cerebral arteries appears patent bilaterally.? No high-grade stenosis, occlusion, or filling defects.? No cerebral aneurysms identified. ? NECK CT ANGIOGRAPHY:? Carotid system:? The great vessels demonstrate conventional anatomy as they arise from the aortic arch.? There is extensive atherosclerotic vascular calcification.? The origins of the common carotid arteries demonstrate vzwe-ay-tvirmkdh narrowing bilaterally.? The common carotid arteries appear patent bilaterally.? There is partially calcified plaque at the carotid bifurcations bilaterally.? There is associated narrowing of approximately 60% by NASCET criteria within the right carotid bulb.? On the left, there is mild narrowing of less than 50% in the left carotid bulb.? The subsequent internal carotid arteries appear patent bilaterally.? ? Posterior circulation:? The origins of the vertebral arteries both appear patent.? There is mild multifocal narrowing along the course of the left vertebral artery.? The right vertebral artery appears widely patent along its course.? They join to form a patent basilar artery.? ? Soft tissues:? Visualized neck and chest redemonstrates bilateral scattered bullae within the lungs with an irregular prominent bulla in the right upper lobe demonstrating eccentric soft tissue thickening.? This appears similar to the prior chest CT.? A few scattered ground-glass nodular opacities are also redemonstrated bilaterally in the upper lobes. ? There is moderate to severe narrowing at the origin of the left subclavian artery. ? Bones:? No suspicious bony lesions.? Visualized cervical spine demonstrates straightening of the cervical lordosis with minimal anterolisthesis at C2-C3, C3-C4, C4-C5, and C5-C6.? There is multilevel degenerative disc disease and facet joint arthropathy. ? IMPRESSION:? ? 1. No high-grade stenosis or occlusion of the central intracranial arteries. ? 2. Narrowing in the bilateral carotid bulbs of approximately 60% on the right and less than 50% on the left. ? 3. 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 ? Any quantitative measurements of stenosis were performed using NASCET criteria.? ? ? Dictated by: Kalia Singh M.D. on 03/28/2022 at 23:27 ? ? Approved by: Kalia Singh M.D. on 03/28/2022 at 23:39 ? Labs Result Diagrams: 03/29/22 06:15 03/29/22 06:15 Labs: Laboratory Results - last 24 hr 03/28/22 03/28/22 03/28/22 15:27 17:40 17:44 WBC RBC Hgb Hct MCV MCH MCHC RDW Plt Count Neut % (Auto) Lymph % (Auto) [place] % (Auto) Eos % (Auto) Baso % (Auto) Neut # (Auto) Lymph # (Auto) [place] # (Auto) Eos # (Auto) Baso # (Auto) APTT Sodium Potassium Chloride Carbon Dioxide BUN Creatinine Estimated GFR BUN/Creatinine Ratio Glucose Calcium Total Bilirubin AST ALT Alkaline Phosphatase Total Creatine Kinase 39 CK-MB (CK-2) TNP CK-MB (CK-2) Rel Index TNP Troponin I 0.068 H 0.073 H Total Protein Albumin Globulin Albumin/Globulin Ratio Triglycerides Cholesterol LDL Cholesterol, Calc HDL Cholesterol Urine Color Urine Appearance Urine pH Ur Specific [place] Urine Protein Urine Glucose (UA) Urine Ketones Urine Occult Blood Urine Nitrate Urine Bilirubin Urine Urobilinogen Ur Leukocyte Esterase Urine RBC Urine WBC Ur Squamous Epith Cells Urine Bacteria Ur Culture Indicated? SARS-CoV-2 (PCR) Negative 03/28/22 03/28/22 03/28/22 17:44 17:44 20:45 WBC 8.8 RBC 5.08 Hgb 15.7 Hct 45.6 MCV 89.8 MCH 30.8 MCHC 34.3 RDW 15.1 H Plt Count 222 Neut % (Auto) 57.9 Lymph % (Auto) 30.8 [place] % (Auto) 8.0 Eos % (Auto) 2.2 Baso % (Auto) 1.1 Neut # (Auto) 5100 Lymph # (Auto) 2700 [place] # (Auto) 700 Eos # (Auto) 200 Baso # (Auto) 100 APTT Sodium 141 Potassium 3.6 Chloride 108 H Carbon Dioxide 29 BUN 18 H Creatinine 0.99 Estimated GFR 58 L BUN/Creatinine Ratio 18.2 Glucose 81 Calcium 9.3 Total Bilirubin 0.7 AST 29 ALT 12 Alkaline Phosphatase 114 Total Creatine Kinase CK-MB (CK-2) CK-MB (CK-2) Rel Index Troponin I 0.073 H Total Protein 7.5 Albumin 4.2 Globulin 3.3 Albumin/Globulin Ratio 1.3 Triglycerides Cholesterol LDL Cholesterol, Calc HDL Cholesterol Urine Color Urine Appearance Urine pH Ur Specific [place] Urine Protein Urine Glucose (UA) Urine Ketones Urine Occult Blood Urine Nitrate Urine Bilirubin Urine Urobilinogen Ur Leukocyte Esterase Urine RBC Urine WBC Ur Squamous Epith Cells Urine Bacteria Ur Culture Indicated? SARS-CoV-2 (PCR) 03/28/22 03/29/22 03/29/22 22:50 06:15 06:15 WBC RBC Hgb Hct MCV MCH MCHC RDW Plt Count Neut % (Auto) Lymph % (Auto) [place] % (Auto) Eos % (Auto) Baso % (Auto) Neut # (Auto) Lymph # (Auto) [place] # (Auto) Eos # (Auto) Baso # (Auto) APTT Sodium 139 Potassium 3.4 Chloride 109 H Carbon Dioxide 27 BUN 22 H Creatinine 1.16 H Estimated GFR 48 L BUN/Creatinine Ratio 19.0 Glucose 115 H Calcium 8.7 Total Bilirubin AST ALT Alkaline Phosphatase Total Creatine Kinase CK-MB (CK-2) CK-MB (CK-2) Rel Index Troponin I Total Protein Albumin Globulin Albumin/Globulin Ratio Triglycerides 118 Cholesterol 189 LDL Cholesterol, Calc 118 H HDL Cholesterol 47 Urine Color Yellow Urine Appearance Clear Urine pH 7.0 Ur Specific [place] 1.010 Urine Protein 1+ H Urine Glucose (UA) Negative Urine Ketones Negative Urine Occult Blood Trace-lysed Urine Nitrate Negative Urine Bilirubin Negative Urine Urobilinogen 0.2 Ur Leukocyte Esterase Negative Urine RBC 1-5/hpf Urine WBC 0-1/hpf Ur Squamous Epith Cells 0-1 /hpf Urine Bacteria None seen Ur Culture Indicated? Cult not indicated SARS-CoV-2 (PCR) 03/29/22 03/29/22 03/29/22 06:15 14:55 15:50 WBC 8.2 RBC 4.58 Hgb 13.9 Hct 41.2 MCV 90.0 MCH 30.3 MCHC 33.7 RDW 15.1 H Plt Count 195 Neut % (Auto) 62.9 Lymph % (Auto) 25.2 [place] % (Auto) 8.5 Eos % (Auto) 2.0 Baso % (Auto) 1.4 Neut # (Auto) 5100 Lymph # (Auto) 2100 [place] # (Auto) 700 Eos # (Auto) 200 Baso # (Auto) 100 APTT 30 Sodium Potassium Chloride Carbon Dioxide BUN Creatinine Estimated GFR BUN/Creatinine Ratio Glucose Calcium Total Bilirubin AST ALT Alkaline Phosphatase Total Creatine Kinase CK-MB (CK-2) CK-MB (CK-2) Rel Index Troponin I 0.031 Total Protein Albumin Globulin Albumin/Globulin Ratio Triglycerides Cholesterol LDL Cholesterol, Calc HDL Cholesterol Urine Color Urine Appearance Urine pH Ur Specific [place] Urine Protein Urine Glucose (UA) Urine Ketones Urine Occult Blood Urine Nitrate Urine Bilirubin Urine Urobilinogen Ur Leukocyte Esterase Urine RBC Urine WBC Ur Squamous Epith Cells Urine Bacteria Ur Culture Indicated? SARS-CoV-2 (PCR) [facility] Medical History Acne Chicken pox Chronic back pain Colon polyps COPD (chronic obstructive pulmonary disease) Depression Diverticular disease Endometriosis Fibroids Fibromyalgia Ganglion cyst Herpes (~1999) History of urinary incontinence Hypertension Irritable bowel syndrome Ischemic colitis Measles Psoriasis (~1999) Vision disorder Surgical History Anesthesia H/O: hysterectomy History of appendectomy History of bilateral oophorectomies History of tonsillectomy Pacemaker Family History Father Diabetes mellitus Mother Diabetes mellitus Brother Diabetes mellitus Sister Stroke Social History household members: children Smoking Status: Current every day smoker alcohol intake: never substance use type: does not use Discharge Assessment & Plan Assessment and Plan Assessment: Acute Heart failure, Systolic most likely secondary to underlying cardiac event, NSTEMI Type II -discussed with cardiology (Dr. Calderon), need cardiac catheterization.? No signs of fluid overload.? Transfer process initiated.? Beta-lashon and BRIANNE inhibitor added along with the heparinization. Acute encephalopathy, unclear etiology, improving -continue neuro checks, unable to obtain MRI at this time, physical therapy and occupational therapy TIA at the time of admission, no acute neurological deficits noted at this time, still concerning for change in mental status intermittent Elevated troponin, concerning for NSTEMI type 2, troponin trending, cardiac monitoring, no signs of heart failure at this time.? Cardiology Outpatient for further recommendation, add beta-lashon, patient already on dual antiplatelet therapy, Heparin drop started as per Cardiology recommendations. Patient required ongoing optimization of the therapy and length of stay greater than 2 midnights for safe discharge planning most likely subacute rehab as recommended by Physical therapy Ongoing hospitalization for acute systolic heart failure, abnormal troponin, ongoing intermittent change in mental status most likely consistent with encephalopathy. Time Spent With Patient Plan of Treatment: Discussed with the slicing machine tender of [facility], patient will be transferred to hospitalist service and Cardiology will be performing cardiac catheterization. Discharge Plan Discharge Plan Other facility: [facility] Cardiology - Hospitalist Service Under care of provider: Dr. Amy Mesa Discharge orders & Medications Discharge Orders: Discharge (Order); Ordered 03/29/22 Ordered By: Neil Blanco Prescriptions: No Action acyclovir 400 mg tablet 400 mg PO BID PRN (Reason: cold sore) Qty: 10 2RF atorvastatin 20 mg tablet 40 mg PO DAILY Qty: 180 3RF bupropion HCl [Wellbutrin SR] 150 mg tablet sustained-release 12 hr 150 mg PO DAILY Qty: 90 1RF clopidogrel 75 mg tablet 75 mg PO DAILY Qty: 90 1RF cyproheptadine 4 mg tablet 4 mg PO BID Qty: 180 1RF diclofenac sodium [Voltaren Arthritis Pain] 1 % gel 2 g topical QID Qty: 100 5RF Rx Instructions: apply to single elbow, wrist or hand; for hand includes palm/fingers/back of hand gabapentin 300 mg capsule 300 mg PO BEDTIME Qty: 90 1RF Rx Instructions: Take 1 capsule by mouth at bedtime oxybutynin chloride 5 mg tablet extended release 24hr 5 mg PO BEDTIME Qty: 90 3RF tramadol-acetaminophen [Ultracet] 37.5-325 mg tablet 1 tab PO DAILY PRN (Reason: pain) Qty: 30 2RF ondansetron 4 mg tablet,disintegrating 4 mg PO Q8H PRN (Reason: nausea and vomiting) Qty: 30 2RF mometasone 0.1 % cream 1 applic topical BID PRN (Reason: itching) Qty: 15 1RF Follow up/Referrals: Mir Bingham, [Primary Care Provider] - Discharge Data Primary Care Provider: Mir Bingham
== END 2022-03-29 18:54 | disposition disaster alternative care site (69) | DRG 280 ==
LOC: ED 22:30 → AC 03-29 00:05 → ED 03-29 00:06 → AC 03-29 01:45
PROVIDERS: Family Medicine Addiction Medicine; Admitting Provider Internal Medicine; Emergency Provider Emergency Medicine; PCP Family Medicine; Referring Provider Emergency Medicine; Visit Provider Family Medicine
DX: I21.A1 Myocardial infarction type 2 (principal); I50.21 Acute systolic (congestive) heart failure; G45.9 Transient cerebral ischemic attack, unspecified; G93.40 Encephalopathy, unspecified; I11.0 Hypertensive heart disease with heart failure; J44.9 Chronic obstructive pulmonary disease, unspecified; I25.10 Atherosclerotic heart disease of native coronary artery without angina pectoris; F17.210 Nicotine dependence, cigarettes, uncomplicated; Z95.5 Presence of coronary angioplasty implant and graft; Z20.822 Contact with and (suspected) exposure to COVID-19; Z95.0 Presence of cardiac pacemaker
CPT/HCPCS: 36415; 70450; 70496; 70498; 71045; 80048; 80053; 80061; 81001; 82550; 84484; 85025; 85730; 87635; 92523; 93005; 93010; 93306; 97162; 97166; 99285; C9803; J1644; Q9967

== ENCOUNTER 2022-04-14 16:38 | Emergency (ER) | payer OTHER, SELFPAY ==
[2022-04-14] VITALS (13 sets, daily range): BP systolic 157–177; BP diastolic 72–79; PULSE 64–75; RESP 12–27; TEMP 36.6; O2SAT 94–98; BMI 24.2
--- NOTE | 2022-04-14 16:46 | DI.CT.S_ITS ---
PROCEDURE: CT ANGIO HEAD AND NECK INDICATIONS: left face numbness TECHNIQUE: Pre-contrast 4.5 mm thick sections acquired from the foramen magnum to the vertex. After the administration of intravenous contrast, 1 mm thick sections acquired from the aortic arch through the [place]. Post-contrast 4.5 mm thick sections then re-acquired from the foramen magnum to the vertex. 3-dimensional nvkdtwr-plyrkssbl-btrmiqames (MIP) and/or volume rendering reformats were acquired of the central intracranial vasculature and neck separately. For radiation dose reduction, the following was used: automated exposure control, adjustment of mA and/or kV according to patient size. COMPARISON: , CT, CT HEAD/BRAIN WO CON, 04/14/2022, 17:04. , CT, CT ANGIO HEAD AND NECK, 03/28/2022, 22:53. FINDINGS: Image quality: Excellent. BRAIN: CSF spaces: Ventricles are normal in size and shape. Basal cisterns are patent. No extra-axial fluid collections. Brain: Old lacunar infarcts are again seen in left basal ganglia. No midline shift. No intracranial bleeds or masses. Moderate white matter chronic small vessel ischemic changes are seen. Age-related atrophy is also noted and unchanged. Mendez-white matter interface appears intact. No area of abnormal intracranial enhancement. Skull and face: Calvarium and facial bones appear intact, without suspicious lesions. Orbits appear normal. Sinuses: Sinuses and mastoids are clear. HEAD CT ANGIOGRAPHY: Anterior circulation: Intracranial internal carotid arteries are normal in size and flow. The flow within the paired anterior cerebral arteries is normal and symmetric. The flow within the middle cerebral arteries is normal and symmetric. The anterior communicating artery is seen. No aneurysms are seen. Posterior circulation: Visualized portions of the vertebral arteries demonstrate normal caliber, and join to form a normal appearing basilar artery. Flow within the posterior cerebral arteries is normal and symmetric. No aneurysms are seen. NECK CT ANGIOGRAPHY: Carotid system: Moderate atherosclerotic calcifications involving aortic arch are seen. The great vessels demonstrate a conventional anatomy as they arise from the aortic arch. Moderate to severe stenosis at origin of left subclavian artery is again seen and unchanged from prior study. The origins of the common carotid arteries appear patent. The common carotid arteries demonstrate normal caliber and courses. Moderate amount of atherosclerotic calcifications involving bilateral carotid bulb is again seen with up to 60 percent stenosis involving right carotid bulb and less than 50 percent stenosis in left carotid bulb unchanged from prior study. The internal carotid arteries demonstrate normal calibers and courses. Posterior circulation: The origins of the vertebral arteries both appear widely patent. The more superior extracranial portions of both vertebral arteries also demonstrate normal courses and calibers. They join to form a normal appearing basilar artery. Soft tissues: Visualized neck soft tissues demonstrate no suspicious abnormalities. Enlarged right thyroid gland is again seen with suggestion of hypodense nodules and is concerning for nodular goiter. Bullous disease and scarring in bilateral upper lung jones are again seen unchanged from prior study. Bones: No suspicious bony lesions. Visualized cervical spine appears normally aligned. IMPRESSION: 1. No CT evidence of acute intracranial bleed, midline shift or mass effect. No area of abnormal contrast enhancement. 2. No hemodynamically significant stenosis or aneurysm is seen in intracranial circulation. 3. 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 4. Approximately 60 percent stenosis involving right carotid bulb/origin of right internal carotid artery and less than 50 percent stenosis involving left carotid bulb/origin of left internal carotid artery unchanged from prior study. Any quantitative measurements of stenosis were performed using NASCET criteria. Dictated by: Minh Neely M.D. on 04/14/2022 at 17:51 Approved by: Minh Neely M.D. on 04/14/2022 at 17:58
--- NOTE | 2022-04-14 16:46 | DI.CT.S_ITS ---
PROCEDURE: CT HEAD/BRAIN WO CON INDICATIONS: left sided facial numbness TECHNIQUE: Noncontrast 4.5 mm thick angled axial sections acquired from the foramen magnum to the vertex, with coronal and sagittal reformats. For radiation dose reduction, the following was used: automated exposure control, adjustment of mA and/or kV according to patient size. COMPARISON: [facility], CT, CT HEAD/BRAIN WO CON, 03/28/2022, 17:40. FINDINGS: Image quality: Excellent. CSF spaces: Basal cisterns are patent. No extra-axial fluid collections. The ventricles are symmetric in size and shape. Brain: No acute intracranial hemorrhage or mass effect. Focal hypodensities in the left caudate nucleus and left basal ganglia are most likely related to remote prior lacunar infarcts. There is moderate cerebral volume loss for age, with resultant ventricular and sulcal prominence. There are moderate periventricular and deep white matter chronic small vessel ischemic changes. There is intracranial internal carotid artery atherosclerosis. Skull and face: Calvarium and visualized facial bones appear intact, without suspicious lesions. Sinuses: Visualized sinuses and mastoids are clear. IMPRESSION: 1. No acute intracranial abnormality. 2. Stable old lacunar infarcts in the left caudate nucleus and left basal ganglia. 3. Moderate chronic microvascular ischemic changes and age related cerebral volume loss. Dictated by: Fan Cruz M.D. on 04/14/2022 at 17:21 Approved by: Fan Cruz M.D. on 04/14/2022 at 17:24
[2022-04-14 16:51] LABS: Add Manual Diff / Slide Review NO; Basophils Absolute Auto 0 /uL (0-100); Basophils Percent Auto 0.3 % (0-2); Eosinophils Absolute Auto 200 /uL (0-450); Eosinophils Percent Auto 2.2 % (2-4); Hematocrit 41.4 % (36-46); Hemoglobin 14.4 g/dL (12.0-16.0); Lymphocytes Absolute Auto 2700 /uL (1100-4500); Lymphocytes Percent Auto 24.6 % (25-40); Mean Corpuscular HGB Conc 34.9 % (30-36); Mean Corpuscular Hemoglobin 31.2 PG (26-34); Mean Corpuscular Volume 89.3 fL (80-100); Monocytes Absolute Auto 700 /uL (0-900); Monocytes Percent Auto 6.5 % (3-14); Neutrophils Absolute Auto 7100 /uL (1500-7000); Neutrophils Percent Auto 66.4 % (50-75); Platelet Count 187 X10^3/uL (150-400); Red Blood Cell Count 4.63 X10^6/uL (4.0-5.2); Red Cell Distribution Width 15.4 % (11.6-14.8); White Blood Cell Count 10.8 X10^3/uL (4.5-11.0)
[2022-04-14] MEDS: SODIUM CHLORIDE 0.9% 1,000 ML 150 ML IV (17:38)
[2022-04-14 17:42] LABS: Alanine Aminotransferase 16 IU/L (<35); Albumin 3.9 g/dL (3.5-5.0); Albumin Globulin Ratio 1.2 (1.0-2.8); Alkaline Phosphatase 116 U/L (38-126); Aspartate Aminotransferase 23 IU/L (14-36); BUN Creatinine Ratio 20.7 (6-22); Bilirubin Total 0.7 mg/dL (0.2-1.3); Blood Urea Nitrogen 23 mg/dL (7-17); Calcium 9.3 mg/dL (8.4-10.2); Carbon Dioxide 27 mmol/L (22-32); Chloride 107 mmol/L (98-107); Creatine Kinase 38 U/L (30-135); Estimated Glomerular Filt Rate 51 mL/min (>60); Globulin 3.2 g/dL (1.7-4.1); Glucose 81 mg/dL (80-110); HEMOLYSIS < 15 (0-50); Potassium 4.2 mmol/L (3.4-5.1); Sodium 140 mmol/L (137-145); Total Protein 7.1 g/dL (6.3-8.2)
[2022-04-14 17:53] LABS: Troponin I < 0.012 ng/mL (0.01-0.034)
--- NOTE | 2022-04-14 18:09 | ED.AMS ---
HPI - Altered Mental Status General Chief Complaint: Altered Mental Status Stated Complaint: Left side facial numbness Time Seen by Provider: 04/14/22 16:46 Source: patient Mode of arrival: Ambulatory History of Present Illness HPI narrative: 81-year-old female smoker with history of COPD, coronary artery disease, pacemaker due to Mobitz type 2 av block, prior stroke with recent complex medical history presents for evaluation of left-sided facial tingling. She is mildly confused at baseline and continues to be so today. She states that she just noticed that the left side of her face was tingling today but is very unsure about the details of its onset. Records from her last visit here as well as her hospitalization at [facility] from March 29 to April 02 state she had this complaint at that time. She denies blurred vision or trouble with speech. She denies any dizziness, weakness or lightheadedness. She denies any chest pain or shortness of breath. She had been admitted at our facility on March 27 under very similar circumstances and during the hospitalization was found to have developed an NSTEMI at which point she was transferred to [facility] for definitive care. Her primary loading machine tool setter is at [facility] but at the time they did not have an ability to care for her. She did receive a left heart catheterization during the hospitalization which showed moderate to severe coronary disease in the left main and LAD but nonobstructive overall Related Data Previous Rx's Medication Instructions Recorded mometasone 0.1 % topical cream 1 applic topical BID PRN itching 10/31/21 #15 grams ondansetron 4 mg disintegrating 4 mg PO Q8H PRN nausea and 10/31/21 tablet vomiting #30 tabs tramadol 37.5 mg-acetaminophen 325 1 tab PO DAILY PRN pain #30 tabs 10/31/21 mg tablet (Ultracet) acyclovir 400 mg tablet 400 mg PO BID PRN cold sore #10 03/17/22 tabs atorvastatin 20 mg tablet 40 mg PO DAILY #180 tabs 03/17/22 bupropion HCl 150 mg tablet,12 hr 150 mg PO DAILY #90 ea 03/17/22 sustained-release (Wellbutrin SR) clopidogrel 75 mg tablet 75 mg PO DAILY #90 tabs 03/17/22 cyproheptadine 4 mg tablet 4 mg PO BID #180 tabs 03/17/22 diclofenac sodium 1 % topical gel 2 g topical QID #100 grams 03/17/22 (Voltaren Arthritis Pain) gabapentin 300 mg capsule 300 mg PO BEDTIME #90 caps 03/17/22 oxybutynin chloride 5 mg 5 mg PO BEDTIME #90 tabs 03/17/22 tablet,extended release 24 hr Allergies Allergy/AdvReac Type Severity Reaction Status Date / Time latex [LATEX] Allergy Mild Verified 04/14/22 10:44 amoxicillin [AMOXICILLIN] Allergy Unknown Verified 04/14/22 10:44 levofloxacin [LEVOFLOXACIN] Allergy Unknown Verified 04/14/22 10:44 niacin Allergy Unknown Verified 04/14/22 10:44 sulfamethoxazole Allergy Unknown Verified 04/14/22 10:44 [From Bactrim] tobramycin Allergy Unknown Verified 04/14/22 10:44 trimethoprim [From Bactrim] Allergy Unknown Verified 04/14/22 10:44 varenicline [From Chantix] Allergy Unknown Verified 04/14/22 10:44 Review of Systems Review of Systems Narrative: GENERAL: Denies chills, fatigue, malaise, fever, sweats. HEENT: Denies sinus pain, ear pain, sore throat, difficulty swallowing, dizziness. RESPIRATORY: Denies dyspnea, cough, wheezing, hemoptysis, sputum. CARDIOVASCULAR: Denies chest pain, palpitations, orthopnea, edema, GASTROINTESTINAL: Denies nausea, vomiting, abdominal pain, diarrhea, constipation, melena. : Denies dysuria, frequency, incontinence, hematuria, urinary retention. MUSCULOSKELETAL: denies weakness, joint pain, or bony pain SKIN: Denies rash, skin lesions, or other NEUROLOGIC: See HPI PSYCHIATRIC: No concerning psychosocial issues. 12 point review of systems is negative except for those stated above Patient History Medical History Acne Chicken pox Chronic back pain Colon polyps COPD (chronic obstructive pulmonary disease) Depression Diverticular disease Endometriosis Fibroids Fibromyalgia Ganglion cyst Herpes (~1999) History of urinary incontinence Hypertension Irritable bowel syndrome Ischemic colitis Measles Psoriasis (~1999) Vision disorder Surgical History Anesthesia H/O: hysterectomy History of appendectomy History of bilateral oophorectomies History of tonsillectomy Pacemaker Family History Father Diabetes mellitus Mother Diabetes mellitus Brother Diabetes mellitus Sister Stroke Social History household members: children Smoking Status: Current every day smoker alcohol intake: never substance use type: does not use Smoking Status: Current every day smoker tobacco type: cigarettes alcohol intake frequency: a few times a month Substance Use Type: does not use Exam Narrative Exam Narrative: GENERAL: [81] year old patient appears stated age. Well-developed patient, in mild distress. HEAD: Atraumatic. Normocephalic. EYES: Pupils equal round and reactive. Extraocular motions intact. No scleral icterus. No injection or drainage. ENT: Nose without bleeding, purulent drainage. Throat without erythema, tonsillar hypertrophy or exudate. Airway patent. NECK: Trachea midline. Non tender CARDIOVASCULAR: Regular rate and rhythm without murmurs, gallops, or rubs. RESPIRATORY: Clear to auscultation. Breath sounds equal bilaterally. No wheezes, rales, or rhonchi. GASTROINTESTINAL: Abdomen soft, non-tender, nondistended. EXTREMITIES: No edema or joint tenderness. BACK: Nontender without deformity or crepitance. No flank tenderness. NEURO: AOx3. SKIN: No rash or erythema of visible areas Initial Vital Signs Initial Vital Signs: Vital Signs Temperature 97.8 F 04/14/22 16:38 Pulse Rate 65 04/14/22 16:38 Respiratory Rate 18 04/14/22 16:38 Blood Pressure 173/74 H 04/14/22 16:38 Pulse Oximetry 97 04/14/22 16:38 Oxygen Delivery Method 04/14/22 16:38 Scores NIH Stroke Scale Level of Conciousness: Alert, keenly responsive Ask month/age: Answers both questions correctly. Open/close eyes, close hand: Performs both tasks correctly Best gaze horizontal: Normal Visual jones: No visual loss Facial palsy: Normal symetrical movement Left arm drift: No drift for full 10 sec Right arm drift: No drift for full 10 sec Left leg drift: No drift for full 5 sec Right leg drift: No drift for full 5 sec Limb ataxia: Absent Sensory on face/arms/legs: Mild to moderate sensory loss, can tell touch Best language: No aphasia, normal Dysarthria: Normal Extinction or inattention: No abnormality Total NIH Stroke scale score: 1 Course Course Course Narrative: Patient with left-sided facial tingling and very unclear report of time of onset though this was mentioned at the time of her hospitalization on March 27 and in each note in the aftermath up until when she was discharged from [facility] on April 02. There are no other neurologic symptoms. Imaging is unremarkable. Stroke scale is a 1. Orders Ordered: ED Orders 04/14/22 20:11 Troponin & CK Cardiac Panel Stat Discontinued Medications Sodium Chloride (Normal Saline 0.9%) 1,000 mls @ 150 mls/hr IV CONT TIFFANI Last Infusion: 04/14/22 21:00 Dose: 0 mls/hr Documented By: Admin: 04/14/22 17:38 Dose: 150 mls/hr Documented By: EMMANUEL Vital Signs Vital signs: Vital Signs - 8 hr 04/14/22 21:12 04/14/22 19:00 04/14/22 19:30 Pulse Rate 66 68 67 Respiratory Rate 18 14 27 H Blood Pressure 168/79 H Pulse Oximetry 96 98 95 Oxygen Delivery Method Room Air 04/14/22 20:00 04/14/22 21:05 04/14/22 21:05 Pulse Rate 68 65 Respiratory Rate 25 H Blood Pressure 168/79 H Pulse Oximetry 95 96 Oxygen Delivery Method MDM - Altered Mental Status Lab Data Result diagrams: 04/14/22 16:40 04/14/22 17:20 Labs: Lab Results 04/14/22 04/14/22 04/14/22 Range/Units 16:40 17:20 20:11 WBC 10.8 (4.5-11.0) X10^3/uL RBC 4.63 (4.0-5.2) X10^6/uL Hgb 14.4 (12.0-16.0) g/dL Hct 41.4 (36-46) % MCV 89.3 (80-100) fL MCH 31.2 (26-34) PG MCHC 34.9 (30-36) % RDW 15.4 H (11.6-14.8) % Plt Count 187 (150-400) X10^3/uL Neut % (Auto) 66.4 (50-75) % Lymph % (Auto) 24.6 L (25-40) % Louisa % (Auto) 6.5 (3-14) % Eos % (Auto) 2.2 (2-4) % Baso % (Auto) 0.3 (0-2) % Neut # (Auto) 7100 H (3955-1762) /uL Lymph # (Auto) 2700 (3579-6983) /uL Louisa # (Auto) 700 (0-900) /uL Eos # (Auto) 200 (0-450) /uL Baso # (Auto) 0 (0-100) /uL Sodium 140 (137-145) mmol/L Potassium 4.2 (3.4-5.1) mmol/L Chloride 107 (98-107) mmol/L Carbon Dioxide 27 (22-32) mmol/L BUN 23 H (7-17) mg/dL Creatinine 1.11 H (0.52-1.04) mg/dL Estimated GFR 51 L (>60) mL/min BUN/Creatinine Ratio 20.7 (6-22) Glucose 81 (80-110) mg/dL Calcium 9.3 (8.4-10.2) mg/dL Total Bilirubin 0.7 (0.2-1.3) mg/dL AST 23 (14-36) IU/L ALT 16 (<35) IU/L Alkaline Phosphatase 116 (38-126) U/L Total Creatine Kinase 38 37 (30-135) U/L CK-MB (CK-2) TNP TNP CK-MB (CK-2) Rel Index TNP TNP Troponin I < 0.012 < 0.012 (0.01-0.034) ng/mL Total Protein 7.1 (6.3-8.2) g/dL Albumin 3.9 (3.5-5.0) g/dL Globulin 3.2 (1.7-4.1) g/dL Albumin/Globulin Ratio 1.2 (1.0-2.8) Imaging Data CT scan - head: Radiologist's Impression: [address] [address] [address] Scan Report Signed Patient: Apple Juarez MR#: [id number] : 1940 Acct:[id number] Age/Sex: 81 / F Date of Service: 04/14/22 Loc: ED Accession Number: [id number] ?? Procedure: CT head/brain wo con Ordering Provider: Chelsea Jaramillo D.O. PROCEDURE:? CT HEAD/BRAIN WO CON ? INDICATIONS:? left sided facial numbness ? TECHNIQUE:? Noncontrast 4.5 mm thick angled axial sections acquired from the foramen magnum to the vertex, with coronal and sagittal reformats.? For radiation dose reduction, the following was used:? automated exposure control, adjustment of mA and/or kV according to patient size.? ? COMPARISON:? [facility], CT, CT HEAD/BRAIN WO CON, 03/28/2022, 17:40. ? FINDINGS:? Image quality:? Excellent.? ? CSF spaces:? Basal cisterns are patent.? No extra-axial fluid collections.? The ventricles are symmetric in size and shape.? ? Brain:? No acute intracranial hemorrhage or mass effect.? Focal hypodensities in the left caudate nucleus and left basal ganglia are most likely related to remote prior lacunar infarcts.? There is moderate cerebral volume loss for age, with resultant ventricular and sulcal prominence.? There are moderate periventricular and deep white matter chronic small vessel ischemic changes.? There is intracranial internal carotid artery atherosclerosis.? ? Skull and face:? Calvarium and visualized facial bones appear intact, without suspicious lesions.? ? Sinuses:? Visualized sinuses and mastoids are clear.? ? IMPRESSION:? 1. No acute intracranial abnormality. 2. Stable old lacunar infarcts in the left caudate nucleus and left basal ganglia.? 3. Moderate chronic microvascular ischemic changes and age related cerebral volume loss.? Dictated by: Fan Cruz M.D. on 04/14/2022 at 17:21 ? ? Approved by: Fan Cruz M.D. on 04/14/2022 at 17:24 ? [facility] Narrative Medical decision making narrative: 81-year-old female presents with tingling on the left side of her face that she states she noticed today, but thinks he is probably been there least since yesterday, or perhaps the day before. Records dating back at least a few weeks mention this left-sided facial numbness and tingling had been present then. She has no new neurologic symptoms, she is ambulatory in the department. Labs including repeat troponin given her recent NSTEMI were also normal. She had a CT and a CTA which were unremarkable. Her symptoms are thought to be chronic, she is given extensive return precautions and questions have been answered to her apparent satisfaction Discharge Plan Departure Patient Disposition: Home Clinical Impression: Lt facial numbness Instructions: DI for Numbness/Tingling Activity Restrictions/Additional Instructions: *You have been diagnosed with [persistent left-sided facial tingling. This is unchanged from prior visits, repeat labs and imaging are unchanged and there is no evidence of heart attack or stroke.] *What to do: *Please continue to take your regular medications as directed. [ ] New medication prescriptions sent to your pharmacy: [ ] [ ] New medication written as a paper prescription [x ] No new medications given *Please follow up with your primary care provider in 2-3 days, call for an appointment. Let them know you were seen in the Emergency Department and that we ask that you be seen in follow up. We will electronically transmit a record of today's note if your PCP is in our system *If you do not have a primary care provider please contact the [facility] Resource line at [phone]. They will ask some questions about your medical history and help get you set up with a doctor in the community. *Return to Emergency Department if you should have any new, worsening or concerning symptoms, such as [fever greater than 101 F, shaking chills, worsening pain, persistent vomiting or other bothersome symptoms] Prescriptions: No Action acyclovir 400 mg tablet 400 mg PO BID PRN (Reason: cold sore) Qty: 10 2RF atorvastatin 20 mg tablet 40 mg PO DAILY Qty: 180 3RF bupropion HCl [Wellbutrin SR] 150 mg tablet sustained-release 12 hr 150 mg PO DAILY Qty: 90 1RF clopidogrel 75 mg tablet 75 mg PO DAILY Qty: 90 1RF cyproheptadine 4 mg tablet 4 mg PO BID Qty: 180 1RF diclofenac sodium [Voltaren Arthritis Pain] 1 % gel 2 g topical QID Qty: 100 5RF Rx Instructions: apply to single elbow, wrist or hand; for hand includes palm/fingers/back of hand gabapentin 300 mg capsule 300 mg PO BEDTIME Qty: 90 1RF Rx Instructions: Take 1 capsule by mouth at bedtime oxybutynin chloride 5 mg tablet extended release 24hr 5 mg PO BEDTIME Qty: 90 3RF tramadol-acetaminophen [Ultracet] 37.5-325 mg tablet 1 tab PO DAILY PRN (Reason: pain) Qty: 30 2RF ondansetron 4 mg tablet,disintegrating 4 mg PO Q8H PRN (Reason: nausea and vomiting) Qty: 30 2RF mometasone 0.1 % cream 1 applic topical BID PRN (Reason: itching) Qty: 15 1RF Referrals: Mir Bingham, [Primary Care Provider] - Visit Report Forms: Patient Portal/API
--- NOTE | 2022-04-14 20:33 | PC.NURSE ---
pt ambulated with her cane without difficulty to the bathroom and back states she is ready to go home
[2022-04-14 20:36] LABS: Creatine Kinase 37 U/L (30-135)
[2022-04-14 20:49] LABS: Troponin I < 0.012 ng/mL (0.01-0.034)
== END 2022-04-14 21:33 | disposition home or self-care (01) ==
PROVIDERS: Emergency Medicine; Emergency Provider Emergency Medicine; PCP Family Medicine
DX: R20.0 Anesthesia of skin (principal); R41.0 Disorientation, unspecified; R07.9 Chest pain, unspecified
CPT/HCPCS: 36415; 70450; 70496; 70498; 80053; 82550; 84484; 85025; 93005; 96360; 96361; 99284; 99285; Q9967

== ENCOUNTER → 2023-03-20 17:24 | Outpatient (CLI) | payer OTHER, SELFPAY ==
[2023-03-20 17:54] LABS: Add Manual Diff / Slide Review NO; Basophils Absolute Auto 100 /uL (0-100); Basophils Percent Auto 1.1 % (0-2); Eosinophils Absolute Auto 200 /uL (0-450); Eosinophils Percent Auto 2.5 % (2-4); Hematocrit 42.1 % (36-46); Hemoglobin 14.3 g/dL (12.0-16.0); Lymphocytes Absolute Auto 2700 /uL (1100-4500); Lymphocytes Percent Auto 30.4 % (25-40); Mean Corpuscular HGB Conc 33.8 % (30-36); Mean Corpuscular Hemoglobin 30.8 PG (26-34); Mean Corpuscular Volume 90.9 fL (80-100); Monocytes Absolute Auto 700 /uL (0-900); Monocytes Percent Auto 8.2 % (3-14); Neutrophils Absolute Auto 5100 /uL (1500-7000); Neutrophils Percent Auto 57.8 % (50-75); Platelet Count 216 X10^3/uL (150-400); Red Blood Cell Count 4.63 X10^6/uL (4.0-5.2); Red Cell Distribution Width 16.9 % (11.6-14.8); White Blood Cell Count 8.7 X10^3/uL (4.5-11.0)
[2023-03-20 18:23] LABS: Appearance Urine UA CLEAR; Bilirubin Urine UA NEGATIVE (NEGATIVE); Color Urine UA YELLOW; Glucose Urine UA NEGATIVE (Negative); Ketones Urine UA NEGATIVE (NEGATIVE); Leukocyte Esterase Urine UA NEGATIVE (NEGATIVE); Nitrite Urine UA NEGATIVE (Negative); Occult Blood Urine UA NEGATIVE (Negative); Protein Urine UA TRACE (Negative); Urobilinogen Urine UA 0.2 E.U./dL (0.2)
[2023-03-20 18:31] LABS: Alanine Aminotransferase 18 IU/L (<35); Albumin 3.9 g/dL (3.5-5.0); Albumin Globulin Ratio 1.3 (1.0-2.8); Alkaline Phosphatase 106 U/L (38-126); Aspartate Aminotransferase 30 IU/L (14-36); BUN Creatinine Ratio 20.7 (6-22); Bilirubin Total 0.6 mg/dL (0.2-1.3); Blood Urea Nitrogen 24 mg/dL (7-17); Carbon Dioxide 28 mmol/L (22-32); Chloride 105 mmol/L (98-107); Estimated Glomerular Filt Rate 48 mL/min (>60); Globulin 3.1 g/dL (1.7-4.1); Glucose 95 mg/dL (80-110); HEMOLYSIS < 15 (0-50); Sodium 138 mmol/L (137-145)
[2023-03-20 18:38] LABS: pH Urine UA 5.5 (4.5-8.0)
== END ==
PROVIDERS: PCP Family Medicine; Referring Provider Family Medicine; Visit Provider Family Medicine
DX: I10 Essential (primary) hypertension (principal); R50.9 Fever, unspecified; R30.0 Dysuria
CPT/HCPCS: 36415; 80053; 81003; 85025

== ENCOUNTER 2023-04-25 13:16 | Inpatient (IN) | payer OTHER, SELFPAY ==
[2023-04-25] VITALS (18 sets, daily range): BP systolic 86–195; BP diastolic 50–138; PULSE 64–81; RESP 11–35; TEMP 35.8–36.1; O2SAT 94–97; BMI 21.0
--- NOTE | 2023-04-25 13:36 | DI.CT.S_ITS ---
PROCEDURE: CT HEAD/BRAIN WO CON INDICATIONS: weakness,pt takes coumadin TECHNIQUE: Noncontrast 4.5 mm thick angled axial sections acquired from the foramen magnum to the vertex, with coronal and sagittal reformats. For radiation dose reduction, the following was used: automated exposure control, adjustment of mA and/or kV according to patient size. COMPARISON: [facility], CT, CT HEAD/BRAIN WO CON, 10/13/2020, 16:57. [facility], CT, CT ANGIO HEAD AND NECK, 03/28/2022, 22:53. [facility], CT, CT HEAD/BRAIN WO CON, 03/28/2022, 17:40. FINDINGS: Image quality: Excellent. CSF spaces: Basal cisterns are patent. No extra-axial fluid collections. The ventricles are symmetric in size and shape. Brain: No intracranial bleeds or masses. There is cerebral volume loss for age, with resultant ventricular and sulcal prominence. There are periventricular and deep white matter chronic small vessel ischemic changes. There is intracranial internal carotid artery atherosclerosis. Skull and face: Calvarium and visualized facial bones appear intact, without suspicious lesions. Sinuses: Visualized sinuses and mastoids are clear. IMPRESSION: No acute intracranial hemorrhage is seen. No acute intracranial process is seen. Dictated by: Armand Rosenberg M.D. on 04/25/2023 at 13:13 Approved by: Armand Rosenberg M.D. on 04/25/2023 at 13:15
--- NOTE | 2023-04-25 13:45 | DI.CT.S_ITS ---
PROCEDURE: CT ANGIO HEAD AND NECK INDICATIONS: weakness,pt takes coumadin TECHNIQUE: After the administration of intravenous contrast, 1 mm thick sections acquired from the aortic arch through the [place]. 3-dimensional uouakmf-uwcdvuhsn-qabnueyjgj (MIP) and/or volume rendering reformats were acquired of the central intracranial vasculature and neck separately. For radiation dose reduction, the following was used: automated exposure control, adjustment of mA and/or kV according to patient size. COMPARISON: [facility], CT, CT HEAD/BRAIN WO CON, 04/25/2023, 13:50. [facility], CT, CT ANGIO HEAD AND NECK, 04/14/2022, 17:04. FINDINGS: Image quality: Diagnostic. BRAIN: CSF spaces: Ventricles are normal in size and shape. Basal cisterns are patent. No extra-axial fluid collections. Brain: No midline shift. No intracranial bleeds or masses. Mendez-white matter interface appears intact. Skull and face: Calvarium and facial bones appear intact, without suspicious lesions. Orbits appear normal. Sinuses: Sinuses and mastoids are clear. HEAD CT ANGIOGRAPHY: Anterior circulation: Intracranial internal carotid arteries are normal in size and flow. The flow within the paired anterior cerebral arteries is normal and symmetric. The flow within the middle cerebral arteries is normal and symmetric. The anterior communicating artery is seen. No aneurysms are seen. Posterior circulation: Visualized portions of the vertebral arteries demonstrate normal caliber, and join to form a normal appearing basilar artery. Flow within the posterior cerebral arteries is normal and symmetric. No aneurysms are seen. NECK CT ANGIOGRAPHY: Carotid system: The great vessels demonstrate a conventional anatomy as they arise from the aortic arch. The origins of the common carotid arteries appear patent. The common carotid arteries demonstrate normal caliber and courses. There is a hemodynamically significant stenosis of the proximal left subclavian artery. Definite progression of proximal right internal carotid artery stenosis, approximately 80%. Less than 50% proximal left internal carotid artery stenosis. Posterior circulation: The origins of the vertebral arteries both appear widely patent. The more superior extracranial portions of both vertebral arteries also demonstrate normal courses and calibers. They join to form a normal appearing basilar artery. Soft tissues: Visualized neck soft tissues demonstrate no suspicious abnormalities. Biapical bullous emphysematous change. Remote left hemithyroidectomy. Bones: No suspicious bony lesions. Visualized cervical spine appears normally aligned. IMPRESSION: 1. No acute intracranial abnormality, as is seen on the immediately preceding head CT. 2. Unremarkable CTA head. No stenosis, aneurysm, occlusion, or focal filling defect. 3. 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 4. There is a less than 50% proximal left internal carotid artery stenosis. 5. Hemodynamically significant proximal left subclavian artery stenosis. 6. Biapical bullous emphysema. Any quantitative measurements of stenosis were performed using NASCET criteria. Dictated by: Mike Sher M.D. on 04/25/2023 at 14:22 Approved by: Mike Sher M.D. on 04/25/2023 at 14:28
[2023-04-25 13:46] LABS: Add Manual Diff / Slide Review NO; Basophils Absolute Auto 100 /uL (0-100); Basophils Percent Auto 1.2 % (0-2); Eosinophils Absolute Auto 100 /uL (0-450); Eosinophils Percent Auto 1.4 % (2-4); Hematocrit 42.4 % (36-46); Hemoglobin 14.3 g/dL (12.0-16.0); Lymphocytes Absolute Auto 2100 /uL (1100-4500); Lymphocytes Percent Auto 20.1 % (25-40); Mean Corpuscular HGB Conc 33.6 % (30-36); Mean Corpuscular Hemoglobin 31.1 PG (26-34); Mean Corpuscular Volume 92.4 fL (80-100); Monocytes Absolute Auto 800 /uL (0-900); Monocytes Percent Auto 7.8 % (3-14); Neutrophils Absolute Auto 7200 /uL (1500-7000); Neutrophils Percent Auto 69.5 % (50-75); Platelet Count 193 X10^3/uL (150-400); Red Blood Cell Count 4.59 X10^6/uL (4.0-5.2); Red Cell Distribution Width 17.1 % (11.6-14.8); White Blood Cell Count 10.4 X10^3/uL (4.5-11.0)
[2023-04-25 13:54] LABS: INR 0.9 (0.9-1.3); Prothrombin Time 10.7 SECONDS (10.1-12.7)
[2023-04-25 13:56] LABS: PTT Partial Thromboplastin Tim 28 SECONDS (26-36)
[2023-04-25 13:58] LABS: Alanine Aminotransferase 17 IU/L (<35); Albumin 3.9 g/dL (3.5-5.0); Albumin Globulin Ratio 1.3 (1.0-2.8); Alkaline Phosphatase 106 U/L (38-126); Aspartate Aminotransferase 34 IU/L (14-36); BUN Creatinine Ratio 14.4 (6-22); Bilirubin Total 0.9 mg/dL (0.2-1.3); Blood Urea Nitrogen 47 mg/dL (7-17); Calcium 9.2 mg/dL (8.4-10.2); Carbon Dioxide 26 mmol/L (22-32); Chloride 103 mmol/L (98-107); Creatine Kinase 36 U/L (30-135); Estimated Glomerular Filt Rate 14 mL/min (>60); Ethanol (ETOH) < 10 mg/dL; Globulin 3.1 g/dL (1.7-4.1); Glucose 104 mg/dL (80-110); HEMOLYSIS < 15 (0-50); Potassium 4.2 mmol/L (3.4-5.1); Sodium 137 mmol/L (137-145)
[2023-04-25 14:09] LABS: Troponin I 0.092 ng/mL (0.01-0.034)
--- NOTE | 2023-04-25 14:43 | PC.NURSE ---
pt has hard time finding words today and is easily distractible. grandson states this is not normal for her. pt states during [facility] that her left leg and arm done feel the same as her right leg and arm. she can tell touch but states it feels different on that side.
[2023-04-25 16:28] LABS: Troponin I 0.115 ng/mL (0.01-0.034)
--- NOTE | 2023-04-25 17:19 | PC.NURSE ---
pt is asking for water and food. explained to patient that she needs to talk to the provider first. 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 Patient asking what if she wants to go home? asked patient if she feels like she can walk out, pt states she is still not able to walk. informed patient that her labs are indicating a reason for this and she needs to speak with provider. if she chooses to leave, she will sign AMA paperwork and need her family to help her get home. patient states she understands and is willing to wait a little longer for provider. informed patient there is second provider coming to ER at 1800 and hopefully shortly after then someone can come see her
--- NOTE | 2023-04-25 18:20 | ED_ITS ---
HPI - General Adult General Chief complaint: Weakness Stated complaint: requesting labs Time Seen by Provider: 04/25/23 17:57 Source: patient and family Mode of arrival: Wheelchair Limitations: no limitations History of Present Illness HPI narrative: Patient is an 82-year-old female who comes to the emergency department today for concerns that maybe she has had a mini-stroke. She states last evening she went bed feeling fine but this morning she woke up. She normally uses a cane to get around. She felt like her legs were very weak. She called her grandson who she lives with to come and help her. She also admits she feels very foggy in her head. She denies chest pain. No shortness of breath. She states that she potentially has not had a whole lot to eat or drink over the past couple days. She denies any belly pain. No urinary symptoms. She states she still just does not feel very well. Has taken her medications today. She did not fall. Related Data Home Medications Medication Instructions Recorded Confirmed sacubitril 24 mg-valsartan 26 mg 1 tab PO BID 04/25/23 04/25/23 tablet (Entresto) Previous Rx's Medication Instructions Recorded mometasone 0.1 % topical cream 1 applic topical BID PRN itching 10/31/21 #15 grams ondansetron 4 mg disintegrating 4 mg PO Q8H PRN nausea and 10/31/21 tablet vomiting #30 tabs clopidogrel 75 mg tablet 75 mg PO DAILY #90 tabs 03/17/22 diclofenac sodium 1 % topical gel 2 g topical QID #100 grams 03/17/22 (Voltaren Arthritis Pain) cyproheptadine 4 mg tablet 4 mg PO BID #180 tabs 05/24/22 gabapentin 300 mg capsule 300 mg PO BEDTIME #90 caps 05/24/22 oxybutynin chloride 5 mg 5 mg PO BEDTIME #90 tabs 05/24/22 tablet,extended release 24 hr contour plus #28 ea 05/26/22 tiotropium bromide 18 mcg capsule 1 cap inhalation DAILY #90 05/26/22 with inhalation device (Spiriva inhalations with HandiHaler) acyclovir 400 mg tablet 400 mg PO BID PRN cold sore #10 11/14/22 tabs atorvastatin 80 mg tablet 80 mg PO BEDTIME #90 tabs 11/14/22 carvedilol 3.125 mg tablet See Rx Instructions .Route 03/07/23 .COMPLEX #120 tabs valacyclovir 1 gram tablet 1,000 mg PO TID cold sore #60 tabs 03/19/23 sacubitril 24 mg-valsartan 26 mg See Rx Instructions .Route 04/02/23 tablet (Entresto) .COMPLEX #180 tabs bupropion HCl 150 mg tablet,12 hr 150 mg PO DAILY #90 ea 04/23/23 sustained-release (Wellbutrin SR) Allergies Allergy/AdvReac Type Severity Reaction Status Date / Time latex [LATEX] Allergy Mild Verified 04/25/23 13:20 amoxicillin [AMOXICILLIN] Allergy Unknown Verified 04/25/23 13:20 levofloxacin [LEVOFLOXACIN] Allergy Unknown Verified 04/25/23 13:20 niacin Allergy Unknown Verified 04/25/23 13:20 sulfamethoxazole Allergy Unknown Verified 04/25/23 13:20 [From Bactrim] tobramycin Allergy Unknown Verified 04/25/23 13:20 trimethoprim [From Bactrim] Allergy Unknown Verified 04/25/23 13:20 varenicline [From Chantix] Allergy Unknown Verified 04/25/23 13:20 Review of Systems Constitutional Constitutional: Reports system reviewed and no additional complaints, except as documented Cardiovascular Cardiovascular: Reports system reviewed and no additional complaints, except as documented Respiratory Respiratory: Reports system reviewed and no additional complaints, except as documented Gastrointestinal Gastrointestinal: Reports system reviewed and no additional complaints, except as documented Musculoskeletal Musculoskeletal: Reports system reviewed and no additional complaints, except as documented Integumentary/Breasts Skin/Breast: Reports system reviewed and no additional complaints, except as documented Neurologic Neurologic: Reports system reviewed and no additional complaints, except as documented Hematologic/Lymphatic On Anticoagulants: No Patient History Medical History Acne CHF (congestive heart failure) Chicken pox Chronic back pain Colon polyps COPD (chronic obstructive pulmonary disease) Depression Diverticular disease Endometriosis Fibroids Fibromyalgia Ganglion cyst Herpes (~1999) History of urinary incontinence Hypertension Irritable bowel syndrome Ischemic colitis Measles Mobitz type 2 second degree AV block Psoriasis (~1999) Vision disorder Surgical History Anesthesia H/O: hysterectomy History of appendectomy History of bilateral oophorectomies History of tonsillectomy Pacemaker Family History Father Diabetes mellitus Mother Diabetes mellitus Brother Diabetes mellitus Sister Stroke Social History household members: children Smoking Status: Current every day smoker alcohol intake: never substance use type: does not use Smoking Status: Current every day smoker tobacco type: cigarettes alcohol intake frequency: holidays/special occasions only Substance Use Type: does not use Exam Initial Vital Signs Initial Vital Signs: Vital Signs Temperature 97.0 F L 04/25/23 13:20 Pulse Rate 81 04/25/23 13:20 Respiratory Rate 14 04/25/23 13:20 Blood Pressure 86/50 L 04/25/23 13:20 Pulse Oximetry 94 04/25/23 13:20 Oxygen Delivery Method Room Air 04/25/23 13:20 Const General: cooperative, comfortable and No ill appearing HENMT Head: normal to inspection and normocephalic Resp Effort & Inspection: normal respiratory effort Auscultation: clear to auscultation bilaterally Cardio Rate: regular rate Rhythm: regular rhythm GI Inspection: normal to inspection and non-distended Palpation: soft and No tender Skin General: no rashes or lesions noted Neuro General: patient alert, patient awake and moves all extremities Speech: speech normal Other: Patient is alert to person and she knows she is in the hospital but does not know what year it is, what month it is she does not know her age. She also seems to have some difficulty expressing why she is here in the ER. Extrem Other: No lower extremity swelling, no gross deformities Scores GCS Miesha coma scale eye opening: Spontaneous [place] coma scale verbal response: Confused [place] coma scale motor response: Obey commands Miesha coma scale total score: 14 Course Orders Ordered: ED Orders 04/25/23 23:23 Urinalysis and Microscopic Stat Urine Drug Screen, Rapid Stat Acetaminophen (Acetaminophen 325 Mg Tablet) 650 mg PO Q6H TIFFANI Last Admin: 04/26/23 00:53 Dose: 650 mg Documented By: AT Atorvastatin Calcium (Atorvastatin 20 Mg Tablet) 80 mg PO BEDTIME TIFFANI Calcium Carbonate (Calcium Carbonate 500 Mg Tab) 1,000 mg PO Q4HR PRN PRN Reason: Dyspepsia Carvedilol (Carvedilol 3.125 Mg Tablet) 3.125 mg PO BIDWM [facility] Clopidogrel Bisulfate (Clopidogrel 75 Mg Tablet) 75 mg PO DAILY [facility] Heparin Sodium (Porcine) (Heparin 5,000 Unit/Ml Vial) 5,000 unit SUBCUT BID [facility] Dextrose/Sodium Chloride (Dextrose 5%-0.9% Ns) 1,000 mls @ 75 mls/hr IV CONT TIFFANI Last Admin: 04/26/23 01:31 Dose: 75 mls/hr Documented By: AT Ipratropium [place] (Ipratropium 0.5 Mg/2.5 Ml Neb) 0.5 mg INH Q4HRWA [facility] Ipratropium [place] (Ipratropium 0.5 Mg/2.5 Ml Neb) 0.5 mg INH Q2H PRN PRN Reason: Shortness Of Breath Melatonin (Melatonin 3 Mg Tablet) 6 mg PO BEDTIME PRN PRN Reason: Insomnia Stop: 05/10/23 23:56 Ondansetron HCl (Ondansetron 4 Mg/2 Ml Inj) 4 mg IV Q8HR PRN PRN Reason: Nausea And Vomiting Ondansetron HCl (Ondansetron 4 Mg Odt) 4 mg PO Q8HR PRN PRN Reason: Nausea And Vomiting Discontinued Medications Sodium Chloride (Normal Saline 0.9%) 1,000 mls @ 500 mls/hr IV BOLUS ONE Stop: 04/25/23 20:06 Last Admin: 04/25/23 18:36 Dose: 500 mls/hr Documented By: NR Ceftriaxone Sodium 1,000 mg/ (Sodium Chloride) 100 mls @ 200 mls/hr IV NOW ONE Stop: 04/25/23 23:46 Last Admin: 04/26/23 00:54 Dose: 200 mls/hr Documented By: AT Vital Signs Vital signs: Vital Signs - 8 hr 04/25/23 13:20 04/25/23 14:22 04/25/23 14:22 Temperature 97.0 F L Pulse Rate 81 72 Respiratory Rate 14 14 Blood Pressure 86/50 L 118/62 Pulse Oximetry 94 95 Oxygen Delivery Method Room Air 04/25/23 14:30 04/25/23 14:30 04/25/23 15:00 Temperature Pulse Rate 73 Respiratory Rate 28 H Blood Pressure 124/65 115/57 L Pulse Oximetry 95 Oxygen Delivery Method 04/25/23 15:00 04/25/23 15:40 04/25/23 15:41 Temperature Pulse Rate 69 69 71 Respiratory Rate 21 16 Blood Pressure Pulse Oximetry 95 97 96 Oxygen Delivery Method 04/25/23 15:41 04/25/23 16:00 04/25/23 16:00 Temperature Pulse Rate 66 Respiratory Rate 22 Blood Pressure 121/56 L 161/73 H Pulse Oximetry 97 Oxygen Delivery Method 04/25/23 16:30 04/25/23 16:30 04/25/23 17:00 Temperature Pulse Rate 67 67 Respiratory Rate 18 20 Blood Pressure 141/85 H Pulse Oximetry 95 95 Oxygen Delivery Method 04/25/23 17:01 04/25/23 17:01 04/25/23 17:30 Temperature Pulse Rate 67 Respiratory Rate 17 Blood Pressure 131/106 H 158/72 H Pulse Oximetry 95 Oxygen Delivery Method 04/25/23 17:30 Temperature Pulse Rate 64 Respiratory Rate 11 L Blood Pressure Pulse Oximetry 95 Oxygen Delivery Method Medical Decision Making Lab Data Lab results reviewed: Yes I reviewed the patient's lab results. 04/25/23 13:37 04/25/23 13:37 Labs: Lab Results 04/25/23 04/25/23 04/25/23 Range/Units 13:37 13:37 13:37 WBC 10.4 (4.5-11.0) X10^3/uL RBC 4.59 (4.0-5.2) X10^6/uL Hgb 14.3 (12.0-16.0) g/dL Hct 42.4 (36-46) % MCV 92.4 (80-100) fL MCH 31.1 (26-34) PG MCHC 33.6 (30-36) % RDW 17.1 H (11.6-14.8) % Plt Count 193 (150-400) X10^3/uL Neut % (Auto) 69.5 (50-75) % Lymph % (Auto) 20.1 L (25-40) % [place] % (Auto) 7.8 (3-14) % Eos % (Auto) 1.4 L (2-4) % Baso % (Auto) 1.2 (0-2) % Neut # (Auto) 7200 H (6485-1290) /uL Lymph # (Auto) 2100 (6757-2046) /uL [place] # (Auto) 800 (0-900) /uL Eos # (Auto) 100 (0-450) /uL Baso # (Auto) 100 (0-100) /uL PT 10.7 (10.1-12.7) SECONDS INR 0.9 (0.9-1.3) APTT 28 (26-36) SECONDS Sodium 137 (137-145) mmol/L Potassium 4.2 (3.4-5.1) mmol/L Chloride 103 (98-107) mmol/L Carbon Dioxide 26 (22-32) mmol/L BUN 47 H (7-17) mg/dL Creatinine 3.26 H (0.52-1.04) mg/dL Estimated GFR 14 L (>60) mL/min BUN/Creatinine Ratio 14.4 (6-22) Glucose 104 (80-110) mg/dL Calcium 9.2 (8.4-10.2) mg/dL Total Bilirubin 0.9 (0.2-1.3) mg/dL AST 34 (14-36) IU/L ALT 17 (<35) IU/L Alkaline Phosphatase 106 (38-126) U/L Total Creatine Kinase 36 (30-135) U/L Troponin I 0.092 H (0.01-0.034) ng/mL Total Protein 7.0 (6.3-8.2) g/dL Albumin 3.9 (3.5-5.0) g/dL Globulin 3.1 (1.7-4.1) g/dL Albumin/Globulin Ratio 1.3 (1.0-2.8) Ethyl Alcohol < 10 ( - 10) mg/dL 04/25/23 Range/Units 15:40 WBC (4.5-11.0) X10^3/uL RBC (4.0-5.2) X10^6/uL Hgb (12.0-16.0) g/dL Hct (36-46) % MCV (80-100) fL MCH (26-34) PG MCHC (30-36) % RDW (11.6-14.8) % Plt Count (150-400) X10^3/uL Neut % (Auto) (50-75) % Lymph % (Auto) (25-40) % [place] % (Auto) (3-14) % Eos % (Auto) (2-4) % Baso % (Auto) (0-2) % Neut # (Auto) (3707-7342) /uL Lymph # (Auto) (8273-7362) /uL [place] # (Auto) (0-900) /uL Eos # (Auto) (0-450) /uL Baso # (Auto) (0-100) /uL PT (10.1-12.7) SECONDS INR (0.9-1.3) APTT (26-36) SECONDS Sodium (137-145) mmol/L Potassium (3.4-5.1) mmol/L Chloride (98-107) mmol/L Carbon Dioxide (22-32) mmol/L BUN (7-17) mg/dL Creatinine (0.52-1.04) mg/dL Estimated GFR (>60) mL/min BUN/Creatinine Ratio (6-22) Glucose (80-110) mg/dL Calcium (8.4-10.2) mg/dL Total Bilirubin (0.2-1.3) mg/dL AST (14-36) IU/L ALT (<35) IU/L Alkaline Phosphatase (38-126) U/L Total Creatine Kinase (30-135) U/L Troponin I 0.115 H (0.01-0.034) ng/mL Total Protein (6.3-8.2) g/dL Albumin (3.5-5.0) g/dL Globulin (1.7-4.1) g/dL Albumin/Globulin Ratio (1.0-2.8) Ethyl Alcohol ( - 10) mg/dL Imaging Data CT scan - head: Radiologist's Impression: PROCEDURE:? CT HEAD/BRAIN WO CON ? INDICATIONS:? weakness,pt takes coumadin ? TECHNIQUE:? Noncontrast 4.5 mm thick angled axial sections acquired from the foramen magnum to the vertex, with coronal and sagittal reformats.? For radiation dose reduction, the following was used:? automated exposure control, adjustment of mA and/or kV according to patient size.? ? COMPARISON:? [facility], CT, CT HEAD/BRAIN WO CON, 10/13/2020, 16:57.? [facility], CT, CT ANGIO HEAD AND NECK, 03/28/2022, 22:53.? [facility], CT, CT HEAD/BRAIN WO CON, 03/28/2022, 17:40. ? FINDINGS:? Image quality:? Excellent.? ? CSF spaces:? Basal cisterns are patent.? No extra-axial fluid collections.? The ventricles are symmetric in size and shape.? ? Brain:? No intracranial bleeds or masses.? There is cerebral volume loss for age, with resultant ventricular and sulcal prominence.? There are periventricular and deep white matter chronic small vessel ischemic changes.? There is intracranial internal carotid artery atherosclerosis.? ? Skull and face:? Calvarium and visualized facial bones appear intact, without suspicious lesions.? ? Sinuses:? Visualized sinuses and mastoids are clear.? IMPRESSION:? No acute intracranial hemorrhage is seen.? ? No acute intracranial process is seen.? CTA - brain/neck: Radiologist's Impression: PROCEDURE:? CT ANGIO HEAD AND NECK ? INDICATIONS:? weakness,pt takes coumadin ? TECHNIQUE:? After the administration of intravenous contrast, 1 mm thick sections acquired from the aortic arch through the [place].? 3-dimensional gixzdbr-dsmyuvigd-xclqwvafmq (MIP) and/or volume rendering reformats were acquired of the central intracranial vasculature and neck separately. For radiation dose reduction, the following was used:? automated exposure control, adjustment of mA and/or kV according to patient size.? ? COMPARISON:? [facility], CT, CT HEAD/BRAIN WO CON, 04/25/2023, 13:50.? [facility], CT, CT ANGIO HEAD AND NECK, 04/14/2022, 17:04. ? FINDINGS:? Image quality:? Diagnostic.? ? BRAIN:? CSF spaces:? Ventricles are normal in size and shape.? Basal cisterns are patent.? No extra-axial fluid collections.? ? Brain:? No midline shift.? No intracranial bleeds or masses.? Mendez-white matter interface appears intact.? ? Skull and face:? Calvarium and facial bones appear intact, without suspicious lesions.? Orbits appear normal.? ? Sinuses:? Sinuses and mastoids are clear.? ? HEAD CT ANGIOGRAPHY:? Anterior circulation:? Intracranial internal carotid arteries are normal in size and flow.? The flow within the paired anterior cerebral arteries is normal and symmetric.? The flow within the middle cerebral arteries is normal and symmetric.? The anterior communicating artery is seen.? No aneurysms are seen.? ? Posterior circulation:? Visualized portions of the vertebral arteries demonstrate normal caliber, and join to form a normal appearing basilar artery.? Flow within the posterior cerebral arteries is normal and symmetric.? No aneurysms are seen.? ? NECK CT ANGIOGRAPHY:? Carotid system:? The great vessels demonstrate a conventional anatomy as they arise from the aortic arch.? The origins of the common carotid arteries appear patent.? The common carotid arteries demonstrate normal caliber and courses.? There is a hemodynamically significant stenosis of the proximal left subclavian artery.? Definite progression of proximal right internal carotid artery stenosis, approximately 80%.? Less than 50% proximal left internal carotid artery stenosis. ? Posterior circulation:? The origins of the vertebral arteries both appear widely patent.? The more superior extracranial portions of both vertebral arteries also demonstrate normal courses and calibers.? They join to form a normal appearing basilar artery.? ? Soft tissues:? Visualized neck soft tissues demonstrate no suspicious abnormalities.? Biapical bullous emphysematous change.? Remote left hemithyroidectomy.? ? Bones:? No suspicious bony lesions.? Visualized cervical spine appears normally aligned.? IMPRESSION:? ? 1. No acute intracranial abnormality, as is seen on the immediately preceding head CT. ? 2. Unremarkable CTA head.? No stenosis, aneurysm, occlusion, or focal filling defect. ? 3. 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 ? 4. There is a less than 50% proximal left internal carotid artery stenosis. ? 5. Hemodynamically significant proximal left subclavian artery stenosis. ? 6. Biapical bullous emphysema.? ? Any quantitative measurements of stenosis were performed using NASCET criteria.? Chest x-ray: Radiologist's Impression: PROCEDURE:? XR CHEST 1V ? INDICATIONS:? eval for pna ? TECHNIQUE:? One view of the chest was acquired.? ? COMPARISON:? [facility], CR, XR CHEST 1V, 03/28/2022, 18:05.? [facility], CR, XR CHEST 2V, 02/09/2022, 17:18. ? FINDINGS:? ? Surgical changes and devices:? Left chest dual lead pacemaker. ? Lungs and pleura:? Lungs are clear.? No pleural effusions or pneumothorax.? ? Mediastinum:? Mediastinal contours appear normal.? Heart size is normal.? ? Bones and chest wall:? No suspicious bony lesions.? Overlying soft tissues appear unremarkable.? ? IMPRESSION:? No acute cardiopulmonary process. ECG Data Interpretation: Sinus rhythm Ventricular rate is 72 Left bundle-branch block QTC [address] T wave changes MDM Narrative Medical decision making narrative: It was difficult for the patient to specifically describe how she is feeling but she knows that she somewhat confused. When I talked with her grandson at bedside he states that she normally is not confused like this. Patient does state that she is not had a whole lot to drink over the past day or so and it has been very hot in the local area. She does have an acute kidney injury based on the increase in her creatinine. She denies chest pain. Does not have ischemic changes on her EKG. Troponin is indeterminate however given her kidney function this does explain the rise in the troponin. Her head CT and CTA show no acute pathology. Stroke is still possibility but I feel less likely. Patient will be unable to get an MRI because she has a pacemaker in place. Patient is afebrile. Given her clinical presentation, increasing creatinine, confusion, troponin she does require admission to the hospital for further evaluation. I did discuss this with her. Discuss this with her grandson who also expresses understanding and agreement. Discussed the case with Dr. Hauser hospitalist on-call who will admit for further evaluation and treatment. Discharge Plan Departure Patient Disposition: Admitted As Inpatient Clinical Impression: Acute kidney injury, Elevated troponin, Altered mental status Admit Date/Time: 04/25/23 18:25 Admit Provider: Stevan Jaime
[2023-04-25] MEDS: SODIUM CHLORIDE 0.9% 1,000 ML 500 ML IV (18:36)
--- NOTE | 2023-04-25 19:12 | DI.RAD.S_ITS ---
PROCEDURE: XR CHEST 1V INDICATIONS: eval for pna TECHNIQUE: One view of the chest was acquired. COMPARISON: [facility], CR, XR CHEST 1V, 03/28/2022, 18:05. [facility], CR, XR CHEST 2V, 02/09/2022, 17:18. FINDINGS: Surgical changes and devices: Left chest dual lead pacemaker. Lungs and pleura: Lungs are clear. No pleural effusions or pneumothorax. Mediastinum: Mediastinal contours appear normal. Heart size is normal. Bones and chest wall: No suspicious bony lesions. Overlying soft tissues appear unremarkable. IMPRESSION: No acute cardiopulmonary process. Dictated by: Rex Ortega M.D. on 04/25/2023 at 19:53 Approved by: Rex Ortega M.D. on 04/25/2023 at 19:54
--- NOTE | 2023-04-25 22:15 | PC.NURSE ---
PT is AOx3 but has some intermittent confusion. Room air, no signs of distress 95%. Pt can stand and pivot to BSC, but is very weak in BLE. x1 assist. Incontinent of urine x1. Applied purewick. Bed alarm is on. The patient Currently lives home alone, but the patient stated that her grandson was going to move in to help her at home. I spoke with him verifying medications at home, but he did not know the dosage. He stated he will bring a medication list with him to the hospital in the morning. Notified the attending on arrival to room.
[2023-04-25 22:52] LABS: Adenovirus Not Detected (Not Detect); B. parapertussis Not Detected (Not Detecte); Bordetella pertussis Not Detected (Not Detecte); Chlamydophila pneumoniae Not Detected (Not Detect); Coronavirus 229E Not Detected (Not Detect); Coronavirus HKU1 Not Detected (Not Detect); Coronavirus NL 63 Not Detected (Not Detect); Coronavirus OC43 Not Detected (Not Detect); Human Metapneumovirus Not Detected (Not Detect); Human Rhinovirus/Enterovirus Not Detected (Not Detect); Influenza A Not Detected (Not Detect); Influenza B Not Detected (Not Detect); Mycoplasma pneumoniae Not Detected (Not Detect); Parainfluenza Virus 1 Not Detected (Not Detect); Parainfluenza Virus 2 Not Detected (Not Detect); Parainfluenza Virus 3 Not Detected (Not Detect); Parainfluenza Virus 4 Not Detected (Not Detect); Respiratory Syncytial Virus Not Detected (Not Detect); SARS- CoV-2 Not Detected (Not Detecte)
[2023-04-25 23:42] LABS: Appearance Urine UA CLEAR; Bilirubin Urine UA NEGATIVE (NEGATIVE); Color Urine UA YELLOW; Glucose Urine UA NEGATIVE (Negative); Ketones Urine UA NEGATIVE (NEGATIVE); Leukocyte Esterase Urine UA TRACE (NEGATIVE); Nitrite Urine UA NEGATIVE (Negative); Occult Blood Urine UA TRACE-INTACT (Negative); Protein Urine UA NEGATIVE (Negative); Specific Gravity Urine UA <=1.005 (1.000-1.035); Urobilinogen Urine UA 0.2 E.U./dL (0.2)
[2023-04-25 23:43] LABS: pH Urine UA 5.5 (4.5-8.0)
[2023-04-25 23:56] LABS: UR Morphine/Opiate cutoff 300 Negative (Negative); Ur Creatinine Normal (Normal); Ur Specific Gravity Normal (Normal); Urine Amphetamines Negative (Negative); Urine Barbiturates Negative (Negative); Urine Benzodiazepines Negative (Negative); Urine Cocaine Negative (Negative); Urine MDMA Negative (Negative); Urine Methadone Negative (Negative); Urine Methamphetamines Negative (Negative); Urine Oxycodone Negative (Negative); Urine Phencyclidine Negative (Negative); Urine Tetrahydrocannabinol Negative (Negative); Urine Tricyclic Antidepressant Negative (Negative); Urine pH Normal (Normal)
[2023-04-26] VITALS (8 sets, daily range): BP systolic 143–188; BP diastolic 71–83; PULSE 68–81; RESP 16–20; TEMP 36–36.4; O2SAT 96–98
[2023-04-26 00:06] LABS: Bacteria Urine None Seen; Culture Indicated Urine Specimen Cultured; RBC Urine 0-1/HPF (0-5/HPF); Squamous Epithelial Cell Urine None Seen (0-5/HPF); WBC Urine 0-1/HPF (0-5/HPF)
[2023-04-26] MEDS: ACETAMINOPHEN 325 MG TABLET 650 MG PO ×4 (00:53→18:19)
[2023-04-26] MEDS: cefTRIAXone 1,000 MG in SODIUM CHLORIDE 0.9% 100 ML 200 MG IV (00:54)
[2023-04-26] MEDS: DEXTROSE 5%-0.9% NS 1,000 ML 75 ML IV ×2 (01:31→13:37)
--- NOTE | 2023-04-26 02:43 | PM.HP.1 ---
History of Present Illness History of Present Illness Chief complaint: requesting labs Narrative: CHIEF COMPLAINT: Anorexia generalized weakness, mild encephalopathy, and dehydration HPI 82-year-old female with a history of CHF, CAD, CVA, pacemaker, COPD/emphysema, chronic pain, and other problems chronicled in the past medical history below. He has not been eating and drinking well lately. The temperature has been in the 90s for the past few days and her home has no air conditioning. Today her legs felt weak. Her grandson also noticed she was slightly altered. She was afraid of having another stroke and she was brought to [facility] for evaluation. She was slightly hypertensive but the rest of vitals were stable. She clinically appears dehydrated. Mental status rapidly improved with hydration CT/CTA head and neck was significant for 80% stenosis of the right internal carotid artery. Labs were significant for a BUN of 47 and a creatinine of 3.2 with baseline creatinine approximate 1.5. White cell count was normal. TnI was 0.092 and then -.115 without chest pain. EKG is not available in the external viewer. Urinalysis currently pending. EKG had no acute ischemic changes. Chest x-ray had no significant findings and pacemaker was noted. Viral respiratory panel was completely negative. She was given IV fluids and sent to the medical floor. She continues to complain of dysuria for the past few weeks. She denied fever, chills, or sweats. She denied nausea/vomiting/diarrhea. She will give Rocephin and follow-up UA in addition to keeping her hydrated. [facility] Medical History (Updated 04/26/23 @ 02:45 by Stevan Jaime MD) Acne CHF (congestive heart failure) Chicken pox Chronic back pain Colon polyps COPD (chronic obstructive pulmonary disease) Depression Diverticular disease Endometriosis Fibroids Fibromyalgia Ganglion cyst Herpes (~1999) History of urinary incontinence Hypertension Irritable bowel syndrome Ischemic colitis Measles Mobitz type 2 second degree AV block Psoriasis (~1999) Vision disorder Surgical History Anesthesia H/O: hysterectomy History of appendectomy History of bilateral oophorectomies History of tonsillectomy Pacemaker Family History Father Diabetes mellitus Mother Diabetes mellitus Brother Diabetes mellitus Sister Stroke Social History household members: children Smoking Status: Current every day smoker alcohol intake: never substance use type: does not use Meds Home Medications and Allergies Home Medications Medication Instructions Recorded Confirmed Type mometasone 0.1 % topical cream 1 applic topical BID PRN itching 10/31/21 03/20/23 Rx #15 grams ondansetron 4 mg disintegrating 4 mg PO Q8H PRN nausea and 10/31/21 03/20/23 Rx tablet vomiting #30 tabs clopidogrel 75 mg tablet 75 mg PO DAILY #90 tabs 03/17/22 03/20/23 Rx diclofenac sodium 1 % topical gel 2 g topical QID #100 grams 03/17/22 03/20/23 Rx (Voltaren Arthritis Pain) cyproheptadine 4 mg tablet 4 mg PO BID #180 tabs 05/24/22 03/20/23 Rx gabapentin 300 mg capsule 300 mg PO BEDTIME #90 caps 05/24/22 03/20/23 Rx oxybutynin chloride 5 mg 5 mg PO BEDTIME #90 tabs 05/24/22 04/25/23 Rx tablet,extended release 24 hr contour plus #28 ea 05/26/22 04/25/23 Rx tiotropium bromide 18 mcg capsule 1 cap inhalation DAILY #90 05/26/22 03/20/23 Rx with inhalation device (Spiriva inhalations with HandiHaler) acyclovir 400 mg tablet 400 mg PO BID PRN cold sore #10 11/14/22 04/25/23 Rx tabs atorvastatin 80 mg tablet 80 mg PO BEDTIME #90 tabs 11/14/22 04/25/23 Rx carvedilol 3.125 mg tablet See Rx Instructions .Route 03/07/23 04/25/23 Rx .COMPLEX #120 tabs valacyclovir 1 gram tablet 1,000 mg PO TID cold sore #60 tabs 03/19/23 04/25/23 Rx sacubitril 24 mg-valsartan 26 mg See Rx Instructions .Route 04/02/23 Rx tablet (Entresto) .COMPLEX #180 tabs bupropion HCl 150 mg tablet,12 hr 150 mg PO DAILY #90 ea 04/23/23 04/25/23 Rx sustained-release (Wellbutrin SR) sacubitril 24 mg-valsartan 26 mg 1 tab PO BID 04/25/23 04/25/23 History tablet (Entresto) Allergies Allergy/AdvReac Type Severity Reaction Status Date / Time latex [LATEX] Allergy Mild Verified 04/25/23 13:20 amoxicillin [AMOXICILLIN] Allergy Unknown Verified 04/25/23 13:20 levofloxacin [LEVOFLOXACIN] Allergy Unknown Verified 04/25/23 13:20 niacin Allergy Unknown Verified 04/25/23 13:20 sulfamethoxazole Allergy Unknown Verified 04/25/23 13:20 [From Bactrim] tobramycin Allergy Unknown Verified 04/25/23 13:20 trimethoprim [From Bactrim] Allergy Unknown Verified 04/25/23 13:20 varenicline [From Chantix] Allergy Unknown Verified 04/25/23 13:20 Exam Vital Signs (past 8 hours): - 04/25/23 19:00 04/25/23 19:00 04/25/23 19:30 Temperature Pulse Rate 67 Respiratory Rate 20 Blood Pressure 189/91 H 179/92 H Pulse Oximetry 97 Oxygen Delivery Method Oxygen Flow Rate 04/25/23 19:30 04/25/23 20:00 04/25/23 20:00 Temperature Pulse Rate 72 72 Respiratory Rate 22 18 Blood Pressure 178/99 H Pulse Oximetry 95 95 Oxygen Delivery Method Room Air Oxygen Flow Rate 04/25/23 18:51 04/25/23 20:40 04/26/23 00:00 Temperature 96.5 F L 97.3 F L Pulse Rate 71 73 Respiratory Rate 21 20 Blood Pressure 195/138 H 177/72 H Pulse Oximetry 95 96 Oxygen Delivery Method Room Air Oxygen Flow Rate 0 0 Oxygen Delivery Method Room Air Oxygen Flow Rate 0 Narrative Exam Narrative: Assistance from the bedside RN was used in conjunction with telemedicine equipment to generate this exam .. Staff is unable to send audio files of auscultation GEN: Alert and oriented x3 +Dehydrated HEENT: Normocephalic. Pupils are equal. Mucous membranes are dry. NECK: No lumps, JVD, or bruit CVS: S1 + S2 -by nurse report RESP: Clear to auscultation bilaterally-by nurse report GIT: Soft, nontender, + Bowel Sounds EXTR: No edema NEURO: Cranial Nerves intact. No gross focal motor deficits SKIN: No rash or breakdown Objective ECG Impression: Unable to locate in the external viewer list Imaging Chest x-ray: My impression: Emphysema. Pace maker. No acute findings. Labs 04/25/23 13:37 04/25/23 13:37 Labs: Laboratory Results - last 24 hr 04/25/23 04/25/23 04/25/23 13:37 13:37 13:37 WBC 10.4 RBC 4.59 Hgb 14.3 Hct 42.4 MCV 92.4 MCH 31.1 MCHC 33.6 RDW 17.1 H Plt Count 193 Neut % (Auto) 69.5 Lymph % (Auto) 20.1 L [place] % (Auto) 7.8 Eos % (Auto) 1.4 L Baso % (Auto) 1.2 Neut # (Auto) 7200 H Lymph # (Auto) 2100 [place] # (Auto) 800 Eos # (Auto) 100 Baso # (Auto) 100 PT 10.7 INR 0.9 APTT 28 Sodium 137 Potassium 4.2 Chloride 103 Carbon Dioxide 26 BUN 47 H Creatinine 3.26 H Estimated GFR 14 L BUN/Creatinine Ratio 14.4 Glucose 104 Calcium 9.2 Total Bilirubin 0.9 AST 34 ALT 17 Alkaline Phosphatase 106 Total Creatine Kinase 36 Troponin I 0.092 H Total Protein 7.0 Albumin 3.9 Globulin 3.1 Albumin/Globulin Ratio 1.3 Urine Color Urine Appearance Urine pH Ur Specific Jasper Urine Protein Urine Glucose (UA) Urine Ketones Urine Occult Blood Urine Nitrate Urine Bilirubin Urine Urobilinogen Ur Leukocyte Esterase Urine RBC Urine WBC Ur Squamous Epith Cells Urine Bacteria Ur Culture Indicated? U Opiates 300ng/mL cut Ur Oxycodone Screen Urine Methadone Screen Ur Barbiturates Screen U Tricyclic Antidepress Ur Phencyclidine Scrn Ur Amphetamines Screen U Methamphetamines Scrn Ur MDMA Scrn (Ecstasy) U Benzodiazepines Scrn Urine Cocaine Screen U Marijuana (THC) Screen Ethyl Alcohol < 10 Chlamy pneumoniae PCR Adenovirus (PCR) B. pertussis DNA (PCR) B.parapertussis DNA PCR Coronavirus OC43 (PCR) Coronavirus HKU1 (PCR) Coronavirus 229E (PCR) SARS-CoV-2 (PCR) Coronavirus NL63 (PCR) Human Metapneumovir PCR Influenza Type A (PCR) Influenza Type B (PCR) M. pneumoniae (PCR) Parainfluenza 1 (PCR) Parainfluenza 2 (PCR) Parainfluenza 3 (PCR) Parainfluenza 4 (PCR) RSV (PCR) Entero/Rhino (PCR) 04/25/23 04/25/23 04/25/23 15:40 21:56 23:23 WBC RBC Hgb Hct MCV MCH MCHC RDW Plt Count Neut % (Auto) Lymph % (Auto) [place] % (Auto) Eos % (Auto) Baso % (Auto) Neut # (Auto) Lymph # (Auto) [place] # (Auto) Eos # (Auto) Baso # (Auto) PT INR APTT Sodium Potassium Chloride Carbon Dioxide BUN Creatinine Estimated GFR BUN/Creatinine Ratio Glucose Calcium Total Bilirubin AST ALT Alkaline Phosphatase Total Creatine Kinase Troponin I 0.115 H Total Protein Albumin Globulin Albumin/Globulin Ratio Urine Color Urine Appearance Urine pH Ur Specific Jasper Urine Protein Urine Glucose (UA) Urine Ketones Urine Occult Blood Urine Nitrate Urine Bilirubin Urine Urobilinogen Ur Leukocyte Esterase Urine RBC Urine WBC Ur Squamous Epith Cells Urine Bacteria Ur Culture Indicated? U Opiates 300ng/mL cut Negative Ur Oxycodone Screen Negative Urine Methadone Screen Negative Ur Barbiturates Screen Negative U Tricyclic Antidepress Negative Ur Phencyclidine Scrn Negative Ur Amphetamines Screen Negative U Methamphetamines Scrn Negative Ur MDMA Scrn (Ecstasy) Negative U Benzodiazepines Scrn Negative Urine Cocaine Screen Negative U Marijuana (THC) Screen Negative Ethyl Alcohol Chlamy pneumoniae PCR Not detected Adenovirus (PCR) Not detected B. pertussis DNA (PCR) Not detected B.parapertussis DNA PCR Not detected Coronavirus OC43 (PCR) Not detected Coronavirus HKU1 (PCR) Not detected Coronavirus 229E (PCR) Not detected SARS-CoV-2 (PCR) Not detected Coronavirus NL63 (PCR) Not detected Human Metapneumovir PCR Not detected Influenza Type A (PCR) Not detected Influenza Type B (PCR) Not detected M. pneumoniae (PCR) Not detected Parainfluenza 1 (PCR) Not detected Parainfluenza 2 (PCR) Not detected Parainfluenza 3 (PCR) Not detected Parainfluenza 4 (PCR) Not detected RSV (PCR) Not detected Entero/Rhino (PCR) Not detected 04/25/23 23:23 WBC RBC Hgb Hct MCV MCH MCHC RDW Plt Count Neut % (Auto) Lymph % (Auto) [place] % (Auto) Eos % (Auto) Baso % (Auto) Neut # (Auto) Lymph # (Auto) [place] # (Auto) Eos # (Auto) Baso # (Auto) PT INR APTT Sodium Potassium Chloride Carbon Dioxide BUN Creatinine Estimated GFR BUN/Creatinine Ratio Glucose Calcium Total Bilirubin AST ALT Alkaline Phosphatase Total Creatine Kinase Troponin I Total Protein Albumin Globulin Albumin/Globulin Ratio Urine Color Yellow Urine Appearance Clear Urine pH 5.5 Ur Specific Jasper <=1.005 Urine Protein Negative Urine Glucose (UA) Negative Urine Ketones Negative Urine Occult Blood Trace-intact Urine Nitrate Negative Urine Bilirubin Negative Urine Urobilinogen 0.2 Ur Leukocyte Esterase Trace H Urine RBC 0-1/hpf Urine WBC 0-1/hpf Ur Squamous Epith Cells None seen Urine Bacteria None seen Ur Culture Indicated? Specimen cultured U Opiates 300ng/mL cut Ur Oxycodone Screen Urine Methadone Screen Ur Barbiturates Screen U Tricyclic Antidepress Ur Phencyclidine Scrn Ur Amphetamines Screen U Methamphetamines Scrn Ur MDMA Scrn (Ecstasy) U Benzodiazepines Scrn Urine Cocaine Screen U Marijuana (THC) Screen Ethyl Alcohol Chlamy pneumoniae PCR Adenovirus (PCR) B. pertussis DNA (PCR) B.parapertussis DNA PCR Coronavirus OC43 (PCR) Coronavirus HKU1 (PCR) Coronavirus 229E (PCR) SARS-CoV-2 (PCR) Coronavirus NL63 (PCR) Human Metapneumovir PCR Influenza Type A (PCR) Influenza Type B (PCR) M. pneumoniae (PCR) Parainfluenza 1 (PCR) Parainfluenza 2 (PCR) Parainfluenza 3 (PCR) Parainfluenza 4 (PCR) RSV (PCR) Entero/Rhino (PCR) Assessment & Plan Assessment and plan (1) Dehydration: Status: Acute (2) ARF (acute renal failure): Status: Acute Assessment & Plan narrative: ASSESSMENT/PLAN: 82-year-old female with a history of CHF, CAD, CVA, pacemaker, COPD/emphysema, chronic pain, and other problems chronicled in the past medical history below. She is admitted with acute renal failure secondary to dehydration, anorexia, and heat exposure. Metabolic encephalopathy has rapidly resolved. #Acute renal failure #Heat exposure #Anorexia/dehydration Baseline anorexia. Worsened by reduced oral intake in the setting of 90+ degree temperature for the past few days and no air conditioning. Planes of become weak. No clinical evidence of CVA. 80% R ICA stenosis noted. Returned to baseline with IV fluids. May have underlying UTI ?Normal saline ?Hold nephrotoxic medications and adjust renally excreted meds as necessary ?Hold sacubitril and diuretics ?Follow-up CMP in a.m. #metabolic encephalopathy Stable head CT. HAM 80% -Plavix -hold buproprion, cyproheptadine, gabapentin and oxybutinin #Dysuria present for weeks. No fever, chills, sweats, or back pain ?UA pending ?Rocephin MED REC -Reviewed DVT Risk Heparin SQ CODE STATUS: -Full code FEN -Normal saline # SECONDARY PROBLEMS TIA/CVA 03/2022 Neuropathy: Hold gabapenitin Non-ST elevation DC 03/2022: Coronary angiogram in [place] without intervention Systolic CHF: EF 30% - monitor for CHF. Hold Sacubitril and diuretics Hypertension - Coreg Mobitz type II heart block + pacemaker COPD + emphysema Inhalers Diverticulosis IBS Ischemic colitis Fibroids Incontinence Hold oxybutinin Fibromyalgia Back pain - Tylenol Psoriasis Varicella - Valacyclovir prn Measles hx Quality VTE Deep Vein Thrombosis/Pulmonary Embolism Present on Admission: No
[2023-04-26 05:21] LABS: BUN Creatinine Ratio 17.5 (6-22); Blood Urea Nitrogen 47 mg/dL (7-17); Calcium 8.1 mg/dL (8.4-10.2); Carbon Dioxide 22 mmol/L (22-32); Chloride 110 mmol/L (98-107); Estimated Glomerular Filt Rate 17 mL/min (>60); Glucose 118 mg/dL (80-110); HEMOLYSIS < 15 (0-50); Potassium 3.7 mmol/L (3.4-5.1); Sodium 138 mmol/L (137-145)
--- NOTE | 2023-04-26 07:15 | PM.HP.1 ---
History of Present Illness History of Present Illness Date Patient Seen: 04/26/23 Chief complaint: requesting labs Narrative: 82-year-old female with a history of CHF, CAD, CVA, pacemaker, COPD/emphysema, chronic pain, and other problems chronicled in the past medical history below. He has not been eating and drinking well lately.? The temperature has been in the 90s for the past few days and her home has no air conditioning. Today her legs felt weak.? Her grandson also noticed she was slightly altered.? She was afraid of having another stroke and she was brought to [facility] for evaluation. She was slightly hypertensive but the rest of vitals were stable.? She clinically appears dehydrated.? Mental status rapidly improved with hydration CT/CTA head and neck was significant for 80% stenosis of the right internal carotid artery.? Labs were significant for a BUN of 47 and a creatinine of 3.2 with baseline creatinine approximate 1.5.? White cell count was normal.? TnI was 0.092 and then -.115 without chest pain. EKG is not available in the external viewer.? Urinalysis currently pending.? EKG had no acute ischemic changes.? Chest x-ray had no significant findings and pacemaker was noted.? Viral respiratory panel was completely negative. She was given IV fluids and sent to the medical floor.? She continues to complain of dysuria for the past few weeks.? She denied fever, chills, or sweats.? She denied nausea/vomiting/diarrhea. She will give Rocephin and follow-up UA in addition to keeping her hydrated. [facility], [facility] Medical History Acne CHF (congestive heart failure) Chicken pox Chronic back pain Colon polyps COPD (chronic obstructive pulmonary disease) Depression Diverticular disease Endometriosis Fibroids Fibromyalgia Ganglion cyst Herpes (~1999) History of urinary incontinence Hypertension Irritable bowel syndrome Ischemic colitis Measles Mobitz type 2 second degree AV block Psoriasis (~1999) Vision disorder Surgical History Anesthesia H/O: hysterectomy History of appendectomy History of bilateral oophorectomies History of tonsillectomy Pacemaker Family History Father Diabetes mellitus Mother Diabetes mellitus Brother Diabetes mellitus Sister Stroke Social History household members: children Smoking Status: Current every day smoker alcohol intake: never substance use type: does not use Meds Home Medications and Allergies Home Medications Medication Instructions Recorded Confirmed Type mometasone 0.1 % topical cream 1 applic topical BID PRN itching 10/31/21 03/20/23 Rx #15 grams ondansetron 4 mg disintegrating 4 mg PO Q8H PRN nausea and 10/31/21 03/20/23 Rx tablet vomiting #30 tabs clopidogrel 75 mg tablet 75 mg PO DAILY #90 tabs 03/17/22 03/20/23 Rx diclofenac sodium 1 % topical gel 2 g topical QID #100 grams 03/17/22 03/20/23 Rx (Voltaren Arthritis Pain) cyproheptadine 4 mg tablet 4 mg PO BID #180 tabs 05/24/22 03/20/23 Rx gabapentin 300 mg capsule 300 mg PO BEDTIME #90 caps 05/24/22 03/20/23 Rx oxybutynin chloride 5 mg 5 mg PO BEDTIME #90 tabs 05/24/22 04/25/23 Rx tablet,extended release 24 hr contour plus #28 ea 05/26/22 04/25/23 Rx tiotropium bromide 18 mcg capsule 1 cap inhalation DAILY #90 05/26/22 03/20/23 Rx with inhalation device (Spiriva inhalations with HandiHaler) acyclovir 400 mg tablet 400 mg PO BID PRN cold sore #10 11/14/22 04/25/23 Rx tabs atorvastatin 80 mg tablet 80 mg PO BEDTIME #90 tabs 11/14/22 04/25/23 Rx carvedilol 3.125 mg tablet See Rx Instructions .Route 03/07/23 04/25/23 Rx .COMPLEX #120 tabs valacyclovir 1 gram tablet 1,000 mg PO TID cold sore #60 tabs 03/19/23 04/25/23 Rx sacubitril 24 mg-valsartan 26 mg See Rx Instructions .Route 04/02/23 Rx tablet (Entresto) .COMPLEX #180 tabs bupropion HCl 150 mg tablet,12 hr 150 mg PO DAILY #90 ea 04/23/23 04/25/23 Rx sustained-release (Wellbutrin SR) sacubitril 24 mg-valsartan 26 mg 1 tab PO BID 04/25/23 04/25/23 History tablet (Entresto) Allergies Allergy/AdvReac Type Severity Reaction Status Date / Time latex [LATEX] Allergy Mild Verified 04/25/23 13:20 amoxicillin [AMOXICILLIN] Allergy Unknown Verified 04/25/23 13:20 levofloxacin [LEVOFLOXACIN] Allergy Unknown Verified 04/25/23 13:20 niacin Allergy Unknown Verified 04/25/23 13:20 sulfamethoxazole Allergy Unknown Verified 04/25/23 13:20 [From Bactrim] tobramycin Allergy Unknown Verified 04/25/23 13:20 trimethoprim [From Bactrim] Allergy Unknown Verified 04/25/23 13:20 varenicline [From Chantix] Allergy Unknown Verified 04/25/23 13:20 Review of Systems Review of Systems Narrative: All other systems reviewed with the patient and are negative unless otherwise stated. Exam Vital Signs (past 8 hours): - 04/26/23 00:00 04/26/23 06:00 Temperature 97.3 F L 97.4 F L Pulse Rate 73 68 Respiratory Rate 20 18 Blood Pressure 177/72 H 170/71 H Pulse Oximetry 96 98 Oxygen Flow Rate 0 0 Oxygen Delivery Method Room Air Oxygen Flow Rate 0 Narrative Exam Narrative: GEN: Alert and oriented x3 +Dehydrated HEENT: Normocephalic. Pupils are equal. Mucous membranes are dry. NECK: No lumps, JVD, or bruit CVS: S1 + S2 -by nurse report RESP: Clear to auscultation bilaterally-by nurse report GIT: Soft, nontender, + Bowel Sounds EXTR: No edema NEURO: Cranial Nerves intact. No gross focal motor deficits SKIN: No rash or breakdown Objective Labs 04/25/23 13:37 04/26/23 04:46 Labs: Laboratory Results - last 24 hr 04/25/23 04/25/23 04/25/23 13:37 13:37 13:37 WBC 10.4 RBC 4.59 Hgb 14.3 Hct 42.4 MCV 92.4 MCH 31.1 MCHC 33.6 RDW 17.1 H Plt Count 193 Neut % (Auto) 69.5 Lymph % (Auto) 20.1 L [place] % (Auto) 7.8 Eos % (Auto) 1.4 L Baso % (Auto) 1.2 Neut # (Auto) 7200 H Lymph # (Auto) 2100 [place] # (Auto) 800 Eos # (Auto) 100 Baso # (Auto) 100 PT 10.7 INR 0.9 APTT 28 Sodium 137 Potassium 4.2 Chloride 103 Carbon Dioxide 26 BUN 47 H Creatinine 3.26 H Estimated GFR 14 L BUN/Creatinine Ratio 14.4 Glucose 104 Calcium 9.2 Total Bilirubin 0.9 AST 34 ALT 17 Alkaline Phosphatase 106 Total Creatine Kinase 36 Troponin I 0.092 H Total Protein 7.0 Albumin 3.9 Globulin 3.1 Albumin/Globulin Ratio 1.3 Urine Color Urine Appearance Urine pH Ur Specific [place] Urine Protein Urine Glucose (UA) Urine Ketones Urine Occult Blood Urine Nitrate Urine Bilirubin Urine Urobilinogen Ur Leukocyte Esterase Urine RBC Urine WBC Ur Squamous Epith Cells Urine Bacteria Ur Culture Indicated? U Opiates 300ng/mL cut Ur Oxycodone Screen Urine Methadone Screen Ur Barbiturates Screen U Tricyclic Antidepress Ur Phencyclidine Scrn Ur Amphetamines Screen U Methamphetamines Scrn Ur MDMA Scrn (Ecstasy) U Benzodiazepines Scrn Urine Cocaine Screen U Marijuana (THC) Screen Ethyl Alcohol < 10 Chlamy pneumoniae PCR Adenovirus (PCR) B. pertussis DNA (PCR) B.parapertussis DNA PCR Coronavirus OC43 (PCR) Coronavirus HKU1 (PCR) Coronavirus 229E (PCR) SARS-CoV-2 (PCR) Coronavirus NL63 (PCR) Human Metapneumovir PCR Influenza Type A (PCR) Influenza Type B (PCR) M. pneumoniae (PCR) Parainfluenza 1 (PCR) Parainfluenza 2 (PCR) Parainfluenza 3 (PCR) Parainfluenza 4 (PCR) RSV (PCR) Entero/Rhino (PCR) 04/25/23 04/25/23 04/25/23 15:40 21:56 23:23 WBC RBC Hgb Hct MCV MCH MCHC RDW Plt Count Neut % (Auto) Lymph % (Auto) [place] % (Auto) Eos % (Auto) Baso % (Auto) Neut # (Auto) Lymph # (Auto) [place] # (Auto) Eos # (Auto) Baso # (Auto) PT INR APTT Sodium Potassium Chloride Carbon Dioxide BUN Creatinine Estimated GFR BUN/Creatinine Ratio Glucose Calcium Total Bilirubin AST ALT Alkaline Phosphatase Total Creatine Kinase Troponin I 0.115 H Total Protein Albumin Globulin Albumin/Globulin Ratio Urine Color Urine Appearance Urine pH Ur Specific [place] Urine Protein Urine Glucose (UA) Urine Ketones Urine Occult Blood Urine Nitrate Urine Bilirubin Urine Urobilinogen Ur Leukocyte Esterase Urine RBC Urine WBC Ur Squamous Epith Cells Urine Bacteria Ur Culture Indicated? U Opiates 300ng/mL cut Negative Ur Oxycodone Screen Negative Urine Methadone Screen Negative Ur Barbiturates Screen Negative U Tricyclic Antidepress Negative Ur Phencyclidine Scrn Negative Ur Amphetamines Screen Negative U Methamphetamines Scrn Negative Ur MDMA Scrn (Ecstasy) Negative U Benzodiazepines Scrn Negative Urine Cocaine Screen Negative U Marijuana (THC) Screen Negative Ethyl Alcohol Chlamy pneumoniae PCR Not detected Adenovirus (PCR) Not detected B. pertussis DNA (PCR) Not detected B.parapertussis DNA PCR Not detected Coronavirus OC43 (PCR) Not detected Coronavirus HKU1 (PCR) Not detected Coronavirus 229E (PCR) Not detected SARS-CoV-2 (PCR) Not detected Coronavirus NL63 (PCR) Not detected Human Metapneumovir PCR Not detected Influenza Type A (PCR) Not detected Influenza Type B (PCR) Not detected M. pneumoniae (PCR) Not detected Parainfluenza 1 (PCR) Not detected Parainfluenza 2 (PCR) Not detected Parainfluenza 3 (PCR) Not detected Parainfluenza 4 (PCR) Not detected RSV (PCR) Not detected Entero/Rhino (PCR) Not detected 04/25/23 04/26/23 23:23 04:46 WBC RBC Hgb Hct MCV MCH MCHC RDW Plt Count Neut % (Auto) Lymph % (Auto) [place] % (Auto) Eos % (Auto) Baso % (Auto) Neut # (Auto) Lymph # (Auto) [place] # (Auto) Eos # (Auto) Baso # (Auto) PT INR APTT Sodium 138 Potassium 3.7 Chloride 110 H Carbon Dioxide 22 BUN 47 H Creatinine 2.68 H Estimated GFR 17 L BUN/Creatinine Ratio 17.5 Glucose 118 H Calcium 8.1 L Total Bilirubin AST ALT Alkaline Phosphatase Total Creatine Kinase Troponin I Total Protein Albumin Globulin Albumin/Globulin Ratio Urine Color Yellow Urine Appearance Clear Urine pH 5.5 Ur Specific [place] <=1.005 Urine Protein Negative Urine Glucose (UA) Negative Urine Ketones Negative Urine Occult Blood Trace-intact Urine Nitrate Negative Urine Bilirubin Negative Urine Urobilinogen 0.2 Ur Leukocyte Esterase Trace H Urine RBC 0-1/hpf Urine WBC 0-1/hpf Ur Squamous Epith Cells None seen Urine Bacteria None seen Ur Culture Indicated? Specimen cultured U Opiates 300ng/mL cut Ur Oxycodone Screen Urine Methadone Screen Ur Barbiturates Screen U Tricyclic Antidepress Ur Phencyclidine Scrn Ur Amphetamines Screen U Methamphetamines Scrn Ur MDMA Scrn (Ecstasy) U Benzodiazepines Scrn Urine Cocaine Screen U Marijuana (THC) Screen Ethyl Alcohol Chlamy pneumoniae PCR Adenovirus (PCR) B. pertussis DNA (PCR) B.parapertussis DNA PCR Coronavirus OC43 (PCR) Coronavirus HKU1 (PCR) Coronavirus 229E (PCR) SARS-CoV-2 (PCR) Coronavirus NL63 (PCR) Human Metapneumovir PCR Influenza Type A (PCR) Influenza Type B (PCR) M. pneumoniae (PCR) Parainfluenza 1 (PCR) Parainfluenza 2 (PCR) Parainfluenza 3 (PCR) Parainfluenza 4 (PCR) RSV (PCR) Entero/Rhino (PCR) Assessment & Plan Assessment and plan (1) Dehydration: Status: Acute (2) ARF (acute renal failure): Status: Acute Assessment & Plan narrative: ASSESSMENT/PLAN: 82-year-old female with a history of CHF, CAD, CVA, pacemaker, COPD/emphysema, chronic pain, and other problems chronicled in the past medical history below. She is admitted with acute renal failure secondary to dehydration, anorexia, and heat exposure. Metabolic encephalopathy has rapidly resolved. #Acute renal failure #Heat exposure #Anorexia/dehydration Baseline anorexia. Worsened by reduced oral intake in the setting of 90+ degree temperature for the past few days and no air conditioning. Planes of become weak. No clinical evidence of CVA. 80% R ICA stenosis noted. Returned to baseline with IV fluids. ?Normal saline given ?Hold nephrotoxic medications and adjust renally excreted meds as necessary ?Hold sacubitril and diuretics ?Cr improving with IVF #metabolic encephalopathy Stable head CT. HAM 80% -Plavix -hold buproprion, cyproheptadine, gabapentin and oxybutinin #Dysuria present for weeks. No fever, chills, sweats, or back pain ?UA negative ?Rocephin given in ED, will not continue # SECONDARY PROBLEMS TIA/CVA 03/2022 Neuropathy: Hold gabapenitin Non-ST elevation [place] 03/2022: Coronary angiogram in [place] without intervention Systolic CHF: EF 30% - monitor for CHF. Hold Sacubitril and diuretics Hypertension - Coreg Mobitz type II heart block + pacemaker COPD + emphysema Inhalers Diverticulosis IBS Ischemic colitis Fibroids Incontinence Hold oxybutinin Fibromyalgia Back pain - Tylenol Psoriasis Varicella - Valacyclovir prn Measles hx Code status is full code. DVT prophylaxis with heparin subcutaneous. Proxy is son Damon. I have reviewed home meds and used all available resources to reconcile the home meds. This patient will be admitted as inpatient and will require greater than 2 midnights of hospital time to treat ELIZABETH and metabolic encephalopathy. Quality VTE Deep Vein Thrombosis/Pulmonary Embolism Present on Admission: No
--- NOTE | 2023-04-26 08:35 | PC.NURSE ---
Patient is sleepy this morning, she denies pain. BS cta, and patient is on room air. She is waiting for breakfast and is watching television.
[2023-04-26] MEDS: carvediloL 3.125 MG TABLET PO ×2 (08:42→18:19)
[2023-04-26] MEDS: CLOPIDOGREL 75 MG TABLET PO (08:43)
[2023-04-26] MEDS: HEPARIN 5,000 UNIT/ML VIAL 5000 UNIT SUBCUT ×2 (08:43→20:29)
--- NOTE | 2023-04-26 09:31 | CM.DANOTE ---
DCP Assessment Note: Patient is an 82yo female here for ARF/dehydration/ELIZABETH/elevated tropes/AMS PCP Zachery Fernando and self pay DIANNA reviewed EMR. REPAIR DEPARTMENT SUPERVISOR entered room and introduced self and role. Patient was sitting up in bed eating breakfast. Patient appeared A/Ox4. Patient reports her grandson, Ruslan, lives with her and helps provide the care she needs. Her son, Damon, lives in the area but has health concerns of his own. Patient requested her DIL Frannie ([phone]) be her emergency contact. Patient reports she uses a walker/cane/shower seat at baseline. Patient reports trying to get her car fixed up in order to drive but for now her grandson helps her with transportation. Patient adamantly wants to d/c to her home but is open to services. REPAIR DEPARTMENT SUPERVISOR provided [employer] booklet for patient if she was interested in hiring additional caregiving services. Plan: likely home with family when medically stable, open to HH services. CM team will continue to follow closely. DIANNA Sauceda Discharge Planning/Care Management CM Discharge Assessment Start: 04/26/23 09:25 Freq: Status: Active Protocol: Document 04/26/23 09:25 (Rec: 04/26/23 09:30 [id number]) Discharge Planning Assessment Assigned Rig Manager DIANNA Dasilva DPOA/Assigned Designee Name Damon (son) Contact Information [phone] Advance Directives? Yes Advance Directives on File No History Provided By Patient,Medical Record Prior Living Arrangements House Household Members family Comment grandson Ruslan Type of transporation used prior to Relies on Others admit Comment Reports she's getting her car fixed up but her grandson Ruslan helps her with transportation Independent with ADL's Yes Is patient alert and oriented? Yes Needs Assistance With Meal Prep,Home Chores / Shopping Comment Has been needing more assistance overtime. Used to have someone come into her house for housekeeping but doesn't have that anymore. DME Already Rented / Owned Bath Bench,FWW / Walker,Cane Comment appears open to HH Discharge Plan Home Transportation Arrangement grandson in POV Whiteboard Updated in Patient Room with Yes name and ext. # of Rig Manager Review Status In Process Next Review Type Continued Stay Review
[2023-04-26] MEDS: IPRATROPIUM 0.5 MG/2.5 ML NEB INH ×3 (10:04→19:09)
--- NOTE | 2023-04-26 13:03 | OT.IPNOTE ---
Trop numbers trending up yesterday and per hospitalist states ok to hold OT eval until new lab numbers received for today.
[2023-04-26 13:20] LABS: Troponin I 0.074 ng/mL (0.01-0.034)
--- NOTE | 2023-04-26 16:20 | PT-IP ANOTE ---
Pt presents semi supine in bed with all needs met. Upon introduction, the pt reports she is too tired to move from bed and states she is refusing to participate this afternoon. PT educated the pt regarding purpose and indication for PT evaluation, however the pt continued to refuse stating she will participate tomorrow. The pt's needs were met and PT ensured call light is within reach prior to departing. RN was notified of pt refusal.
[2023-04-26 17:50] LABS: Alanine Aminotransferase 16 IU/L (<35); Albumin 3.6 g/dL (3.5-5.0); Albumin Globulin Ratio 1.2 (1.0-2.8); Alkaline Phosphatase 85 U/L (38-126); Aspartate Aminotransferase 28 IU/L (14-36); BUN Creatinine Ratio 21.7 (6-22); Bilirubin Total 0.2 mg/dL (0.2-1.3); Blood Urea Nitrogen 47 mg/dL (7-17); Calcium 8.5 mg/dL (8.4-10.2); Carbon Dioxide 26 mmol/L (22-32); Chloride 107 mmol/L (98-107); Estimated Glomerular Filt Rate 22 mL/min (>60); Glucose 93 mg/dL (80-110); HEMOLYSIS < 15 (0-50); Potassium 4.1 mmol/L (3.4-5.1); Sodium 139 mmol/L (137-145); Total Protein 6.6 g/dL (6.3-8.2)
[2023-04-26] MEDS: ATORVASTATIN 20 MG TABLET 80 MG PO (20:30)
[2023-04-26] MEDS: MELATONIN 3 MG TABLET 6 MG PO (20:30)
[2023-04-27] VITALS (9 sets, daily range): BP systolic 129–200; BP diastolic 65–90; PULSE 68–80; RESP 16–20; TEMP 36.1–36.6; O2SAT 94–96
[2023-04-27] MEDS: DEXTROSE 5%-0.9% NS 1,000 ML 75 ML IV ×2 (02:21→16:55)
[2023-04-27 06:02] LABS: Add Manual Diff / Slide Review NO; Basophils Absolute Auto 0 /uL (0-100); Basophils Percent Auto 0.4 % (0-2); Eosinophils Absolute Auto 200 /uL (0-450); Eosinophils Percent Auto 2.6 % (2-4); Hematocrit 36.1 % (36-46); Hemoglobin 12.3 g/dL (12.0-16.0); Lymphocytes Absolute Auto 1900 /uL (1100-4500); Lymphocytes Percent Auto 29.2 % (25-40); Mean Corpuscular HGB Conc 34.1 % (30-36); Mean Corpuscular Hemoglobin 31.3 PG (26-34); Mean Corpuscular Volume 91.8 fL (80-100); Monocytes Absolute Auto 500 /uL (0-900); Monocytes Percent Auto 6.8 % (3-14); Neutrophils Absolute Auto 4000 /uL (1500-7000); Platelet Count 144 X10^3/uL (150-400); Red Blood Cell Count 3.94 X10^6/uL (4.0-5.2); Red Cell Distribution Width 16.7 % (11.6-14.8); White Blood Cell Count 6.6 X10^3/uL (4.5-11.0)
[2023-04-27 06:11] LABS: BUN Creatinine Ratio 23.1 (6-22); Blood Urea Nitrogen 40 mg/dL (7-17); Calcium 8.2 mg/dL (8.4-10.2); Carbon Dioxide 22 mmol/L (22-32); Chloride 114 mmol/L (98-107); Estimated Glomerular Filt Rate 30 mL/min (>60); Glucose 94 mg/dL (80-110); HEMOLYSIS < 15 (0-50); Potassium 3.7 mmol/L (3.4-5.1); Sodium 141 mmol/L (137-145)
[2023-04-27] MEDS: IPRATROPIUM 0.5 MG/2.5 ML NEB INH ×2 (09:25→19:31)
[2023-04-27] MEDS: CLOPIDOGREL 75 MG TABLET PO (10:00)
[2023-04-27] MEDS: carvediloL 3.125 MG TABLET PO ×2 (10:00→17:15)
[2023-04-27] MEDS: HEPARIN 5,000 UNIT/ML VIAL 5000 UNIT SUBCUT ×2 (10:00→20:39)
--- NOTE | 2023-04-27 14:37 | OT.IPNOTE ---
Attempted to see pt for OT eval and treat. Per nursing, pt has requested to nap most of the day. Pt declined activity at this time stating that she needs to nap. Will hold and continue to follow.
--- NOTE | 2023-04-27 15:11 | PT.IIE ---
Current Diagnoses Dehydration (04/25/23) Acute kidney failure, unspecified (04/25/23) Surgical History (Last Reviewed 03/21/23 @ 09:08 by Mir Bingham DO) Anesthesia H/O: hysterectomy History of appendectomy History of bilateral oophorectomies History of tonsillectomy Pacemaker Medical History (Last Reviewed 04/26/23 @ 02:55 by Judah Armas DO) Acne CHF (congestive heart failure) Chicken pox Chronic back pain Colon polyps COPD (chronic obstructive pulmonary disease) Depression Diverticular disease Endometriosis Fibroids Fibromyalgia Ganglion cyst Herpes (~1999) History of urinary incontinence Hypertension Irritable bowel syndrome Ischemic colitis Measles Mobitz type 2 second degree AV block Psoriasis (~1999) Vision disorder Physical Therapy Inpatient Evaluation/Re-Eval M1 PT/OT-IP Prior Functional Status Start: 04/27/23 16:22 Freq: NEEDED Status: Active Protocol: Document 04/27/23 15:11 AB (Rec: 04/27/23 16:36 AB [id number]) Medical Review Prior Functional Status Medical History Reviewed Yes Communication able to make needs known Mobility and Gait pt stated that she is modified independent with all mobilities and ambulation using either a FWW or a SPC Social History Household Members family Living Arrangements House Number of Floors (Floors) Two Floors Number of Stairs To Enter/Railing? pt stays on main level of the house has 6 steps B rails to enter from the front Home Environment Standard Height Toilet,Tub/ Shower Home Equipment Front Wheel Walker,Straight Cane,Hand Held Shower,Grab Bars Near Toilet Additional Social History Comment pt stated that her grandson will be living with her pt stated that she has a slider tub shower chair M2 PT-IP Current Condition Start: 04/27/23 16:22 Freq: NEEDED Status: Active Protocol: Document 04/27/23 15:11 AB (Rec: 04/27/23 16:36 AB [id number]) Physical Therapy Current Condition Current Condition Evaluation Date 04/27/23 Treatment Diagnosis altered mental status; dehydration, ELIZABETH; difficulty in walking Onset Date 04/25/23 M3 PT-IP Subjective Start: 04/27/23 16:22 Freq: NEEDED Status: Active Protocol: Document 04/27/23 15:11 AB (Rec: 04/27/23 16:36 AB [email or web address]) Subjective Physical Therapy Visit Type Type Initial Evaluation Visit Start Time 15:11 Visit Stop Time 15:50 Total Visit Minutes 39 Number of MISSILE MECHANIC Visits 0 Physical Therapy Visit Comments Patient Comments agreed to get up M4 PT-IP Mobility and Gait Start: 04/27/23 16:22 Freq: NEEDED Status: Active Protocol: Document 04/27/23 15:11 AB (Rec: 04/27/23 16:36 AB [email or web address]) PT-Bed Mobility Assessment Supine to Sit Supine to Sit Maximum Assistance Scooting Scooting to Edge of Bed Maximum Assistance PT-Transfer Assessment Sit to and From Stand Sit to and from Stand Maximum Assistance,1 Person Assistance,Use of Upper Extremities Equipment Transfer Assistive Device Gait Belt,Front Wheeled Walker Orthotic/Prosthetic Devices or Brace: No Transfers Transfer Destination Chair,Bedside Commode Transfer Technique Stand Pivot Transfer Ability Level of Assist Maximum Assistance,Use of Upper Extremities Comments Mobility Comments BP in supine: 156/67 completed supine to sit max A and max cues. pt requiring mod to max A for sitting balance with increase posterior and R sided lateral lean. educated pt on midline position and sitting balance awarenss. positioned pt midline but pt unable to maintain sitting balance requiring mod to max A for repositioning and stability. pt has decrease safety awareness and stated that it is the bed that makes her lose her balance. pt has a tendency to direct her own care and can be resistant to instructions affecting safety. completed sit to stand max A . instructed to use FWW but pt shoved FWW too far forward and reached for armrest of chair to pivot transfer requiring max A and max cues. pt with increase forward flexion and unsteady standing balance requiring max A. pt stated that she needs to use the toilet. bedside commode positioned next to pt. instructed pt again to use FWW . sit to stand max A and again pt pushed FWW away and reached to armrest and stand pivot to transfer to bedside commode max A and max cues. pt wanting to use the toilet for a few minutes. informed nurse regarding pt's mobility and decrease safety awareness. left pt with nurse in room to assist. informed caseworker regarding pt's mobility level and snf recommendation at this time. PT-Balance Assessment Sitting Balance and Reactions Static Sitting Balance Ability Poor Dynamic Sitting Balance Ability Poor Standing Balance and Reactions Static Standing Balance Ability Poor Dynamic Standing Balance Ability Poor Device Used FWW M5 PT-IP Objective Assessments Start: 04/27/23 16:22 Freq: NEEDED Status: Active Protocol: Document 04/27/23 15:11 AB (Rec: 04/27/23 16:36 AB [email or web address]) Orientation Orientation/Cognition Level of Alertness Confusional State Orientation Name Safety Awareness Decreased Safety Awareness Memory Description Short Term Impaired Gross Range of Motion Lower Extremity ROM Assessment Within Functional Limits Strength Lower Extremity Strength Assessment Within Functional Limits Muscle Tone Muscle Tone WNL Yes M6 PT-IP Treatment Start: 04/27/23 16:22 Freq: NEEDED Status: Active Protocol: Document 04/27/23 15:11 AB (Rec: 04/27/23 16:36 AB [email or web address]) Physical Therapy Treatment Education Education Provided Safety M7 PT-IP Assessment and Plan Start: 04/27/23 16:22 Freq: NEEDED Status: Active Protocol: Document 04/27/23 15:11 AB (Rec: 04/27/23 16:36 AB [email or web address]) PT Summary Assessment and Plan Potential Rehabilitation Potential Fair Status of Condition at Evaluation Evolving Summary Impairments Pain,ROM,Strength,Balance, Coordination,Sensation,Tone, Cognition,Bed Mobility, Transfers,Gait,Activity Tolerance Assessment Summary pt admitted in the hospital for altered mental status, ELIZABETH and dehydration. pt requiring max A with mobility at this time. pt directs her own care and resistant to instructions affecting mobility and safety. Pt will require SNF rehab at this time . will continue to assess progress. pt stated that her grandson will be living with her and will be able to assist her. will conduct caregiver training when appropriate. Goals Bed Mobility Goal Minimal Assistance Transfer Goal Minimal Assistance,Front Wheeled Walker Gait Goal Minimal Assistance,Front Wheel Walker Gait Distance 50 Other Goals improve bed mobility, transfers and ambulation using FWW 150 ft SBA up/down 6 steps B rails SBA Days to Meet Goals 10 Frequency of Treatment Frequency Of Treatment Once a Day Treatment Plan Physical Therapy Treatment Plan Bed Mobility Training,Transfer Training,Gait Training, Therapeutic Exercise,Balance Retraining,Post Op Education, Discharge Planning,Hot or Cold Pack,Neuromuscular Re-ed, Coordination Retraining,Manual Therapy Precautions Other Precautions falls Recommendations To Nursing Amount of Assist Needed 2 Person Assist Discharge Recommendations PT Discharge Recommendations Home with / Assist Available,Home Health,SNF Rehab,Home vs SNF Transportation Needs at Discharge Private Vehicle,Wheelchair/ Cabulance
--- NOTE | 2023-04-27 16:30 | CM.DPC ---
DCP SNF vs HH Per MD, pt making medical progress and needs to work with PT/OT as pt lives at home with grandson but needing additional assist. Pt refused OT. Per PT, recommending SNF. Due to triage needs, unable to have full conversation with pt but she was agreeable to backup plan of SNF if really needed. SW called [facility] and made initial referral and willing to review. PASRR done. Will need [place] auth but no therapy notes available in the computer yet and SW will need to fax in AM once notes are available. Plan: SW to follow closely in AM with [facility] review and SNF auth request needs to be faxed to [place] in AM once therapy notes available. DIANNA Johns
--- NOTE | 2023-04-27 17:01 | P.PN_ITS ---
Subjective Subjective Interval history: Patient has no complaints. Cr downtrending to 1.7 with IVF. Exam Vital Signs (past 8 hours): - 04/27/23 10:00 04/27/23 09:25 04/27/23 14:00 Temperature 98 F Pulse Rate 69 72 70 Respiratory Rate 20 16 Blood Pressure 138/65 129/70 Pulse Oximetry 95 96 Oxygen Delivery Method Room Air Oxygen Flow Rate 0 Fraction of Inspired Oxygen 21 SaO2/FiO2 Ratio 457 Oxygen Delivery Method Room Air Oxygen Flow Rate 0 Narrative Exam Narrative: GEN: Alert and oriented x3 HEENT: Normocephalic. Pupils are equal. Mucous membranes are dry. NECK: No lumps, JVD, or bruit CVS: S1 + S2 -by nurse report RESP: Clear to auscultation bilaterally-by nurse report GIT: Soft, nontender, + Bowel Sounds EXTR: No edema NEURO: Cranial Nerves intact. No gross focal motor deficits SKIN: No rash or breakdown Objective Labs 04/27/23 05:20 04/27/23 05:20 Labs: Laboratory Results - last 24 hr 04/26/23 04/27/23 04/27/23 17:24 05:20 05:20 WBC 6.6 RBC 3.94 L Hgb 12.3 Hct 36.1 MCV 91.8 MCH 31.3 MCHC 34.1 RDW 16.7 H Plt Count 144 L Neut % (Auto) 61.0 Lymph % (Auto) 29.2 Mitchell % (Auto) 6.8 Eos % (Auto) 2.6 Baso % (Auto) 0.4 Neut # (Auto) 4000 Lymph # (Auto) 1900 Mitchell # (Auto) 500 Eos # (Auto) 200 Baso # (Auto) 0 Sodium 139 141 Potassium 4.1 3.7 Chloride 107 114 H Carbon Dioxide 26 22 BUN 47 H 40 H Creatinine 2.17 H 1.73 H Estimated GFR 22 L 30 L BUN/Creatinine Ratio 21.7 23.1 H Glucose 93 94 Calcium 8.5 8.2 L Total Bilirubin 0.2 AST 28 ALT 16 Alkaline Phosphatase 85 Total Protein 6.6 Albumin 3.6 Globulin 3.0 Albumin/Globulin Ratio 1.2 PFSH Medical History Acne CHF (congestive heart failure) Chicken pox Chronic back pain Colon polyps COPD (chronic obstructive pulmonary disease) Depression Diverticular disease Endometriosis Fibroids Fibromyalgia Ganglion cyst Herpes (~1999) History of urinary incontinence Hypertension Irritable bowel syndrome Ischemic colitis Measles Mobitz type 2 second degree AV block Psoriasis (~1999) Vision disorder Surgical History Anesthesia H/O: hysterectomy History of appendectomy History of bilateral oophorectomies History of tonsillectomy Pacemaker Family History Father Diabetes mellitus Mother Diabetes mellitus Brother Diabetes mellitus Sister Stroke Social History household members: family Smoking Status: Current every day smoker alcohol intake: never substance use type: does not use Assessment & Plan Assessment and plan (1) Dehydration: Status: Acute (2) ARF (acute renal failure): Status: Acute Assessment & Plan narrative: ASSESSMENT/PLAN: 82-year-old female with a history of CHF, CAD, CVA, pacemaker, COPD/emphysema, chronic pain, and other problems chronicled in the past medical history below. She is admitted with acute renal failure secondary to dehydration, anorexia, and heat exposure. Metabolic encephalopathy has rapidly resolved. #Acute renal failure #Heat exposure #Anorexia/dehydration Baseline anorexia. Worsened by reduced oral intake in the setting of 90+ degree temperature for the past few days and no air conditioning. Planes of become weak. No clinical evidence of CVA. 80% R ICA stenosis noted. Returned to baseline with IV fluids. ?Normal saline given ?Hold nephrotoxic medications and adjust renally excreted meds as necessary ?Hold sacubitril and diuretics ?Cr improving with IVF #metabolic encephalopathy Stable head CT. HAM 80% -Plavix -hold buproprion, cyproheptadine, gabapentin and oxybutinin #Dysuria present for weeks. No fever, chills, sweats, or back pain ?UA negative ?Rocephin given in ED, will not continue # SECONDARY PROBLEMS TIA/CVA 03/2022 Neuropathy: Hold gabapenitin Non-ST elevation [place] 03/2022: Coronary angiogram in [place] without intervention Systolic CHF: EF 30% - monitor for CHF. Hold Sacubitril and diuretics Hypertension - Coreg Mobitz type II heart block + pacemaker COPD + emphysema Inhalers Diverticulosis IBS Ischemic colitis Fibroids Incontinence Hold oxybutinin Fibromyalgia Back pain - Tylenol Psoriasis Varicella - Valacyclovir prn Measles hx Code status is full code. DVT prophylaxis with heparin subcutaneous. Proxy is son Damon. Dispo: Home likely on 04/28 pending ELIZABETH resolution and PT eval. Quality VTE Deep Vein Thrombosis/Pulmonary Embolism Present on Admission: No
[2023-04-27] MEDS: ACETAMINOPHEN 325 MG TABLET 650 MG PO (17:15)
[2023-04-27] MEDS: ATORVASTATIN 20 MG TABLET 80 MG PO (20:39)
[2023-04-28 00:13] VITALS: BP 200/90; PULSE 81
[2023-04-28] MEDS: HYDRALAZINE 20 MG/ML VIAL 5 MG IV (00:13)
[2023-04-28 00:53] VITALS: BP 180/80; PULSE 78; RESP 20; O2SAT 96
[2023-04-28 01:05] VITALS: BP 180/80; PULSE 78
[2023-04-28 02:59] VITALS: BP 173/93; PULSE 83; RESP 20; TEMP 35.9; O2SAT 95
[2023-04-28 05:14] LABS: Add Manual Diff / Slide Review NO; Basophils Absolute Auto 100 /uL (0-100); Basophils Percent Auto 1.3 % (0-2); Eosinophils Absolute Auto 200 /uL (0-450); Hematocrit 42.2 % (36-46); Hemoglobin 14.2 g/dL (12.0-16.0); Lymphocytes Absolute Auto 1900 /uL (1100-4500); Lymphocytes Percent Auto 26.3 % (25-40); Mean Corpuscular HGB Conc 33.7 % (30-36); Mean Corpuscular Hemoglobin 31.1 PG (26-34); Mean Corpuscular Volume 92.3 fL (80-100); Monocytes Absolute Auto 600 /uL (0-900); Monocytes Percent Auto 8.3 % (3-14); Neutrophils Absolute Auto 4400 /uL (1500-7000); Neutrophils Percent Auto 61.1 % (50-75); Platelet Count 174 X10^3/uL (150-400); Red Blood Cell Count 4.58 X10^6/uL (4.0-5.2); Red Cell Distribution Width 16.7 % (11.6-14.8); White Blood Cell Count 7.3 X10^3/uL (4.5-11.0)
[2023-04-28 05:19] LABS: BUN Creatinine Ratio 25.6 (6-22); Blood Urea Nitrogen 30 mg/dL (7-17); Calcium 9.3 mg/dL (8.4-10.2); Carbon Dioxide 22 mmol/L (22-32); Chloride 112 mmol/L (98-107); Estimated Glomerular Filt Rate 47 mL/min (>60); Glucose 92 mg/dL (80-110); HEMOLYSIS 17 (0-50); Potassium 4.1 mmol/L (3.4-5.1); Sodium 142 mmol/L (137-145)
[2023-04-28] MEDS: carvediloL 3.125 MG TABLET PO (08:04)
[2023-04-28] MEDS: HEPARIN 5,000 UNIT/ML VIAL 5000 UNIT SUBCUT (08:05)
[2023-04-28] MEDS: CLOPIDOGREL 75 MG TABLET PO (08:05)
[2023-04-28 08:57] VITALS: BP 187/92; PULSE 90; RESP 17; TEMP 36.6; O2SAT 94
[2023-04-28 09:06] VITALS: PULSE 68; RESP 18; O2SAT 97
[2023-04-28] MEDS: IPRATROPIUM 0.5 MG/2.5 ML NEB INH (09:06)
--- NOTE | 2023-04-28 15:36 | CM.DPC ---
DCP Continued: LANDSCAPE ARCHITECT AND PLANNER reviewed EMR. Per provider, good to d/c today. Home with HH available. LANDSCAPE ARCHITECT AND PLANNER placed verbal read back order for HH. LANDSCAPE ARCHITECT AND PLANNER entered room and reintroduced self and role. Patient resting and appeared A/Ox4. Patient reports utilizing [facility] in past and being open to it again now. Patient reports will call grandson to come pick her up. LANDSCAPE ARCHITECT AND PLANNER faxed H&P,, PT notes, updated clinicals, face sheet, and F2F to [facility]. LANDSCAPE ARCHITECT AND PLANNER spoke with Layne at [facility]. They are able to accept patient. All they need is the d/c summary. LANDSCAPE ARCHITECT AND PLANNER agreed to send it when available. Plan: patient to d/c home with [facility] and grandson. CM team will fax d/c summary to [facility] when available. CM team will follow as needed. DIANNA Sauceda
--- NOTE | 2023-04-29 18:13 | PM.DS.1 ---
History of Present Illness History of Present Illness Date Patient Seen: 04/26/23 Chief complaint: requesting labs Narrative: Per admitting provider: 82-year-old female with a history of CHF, CAD, CVA, pacemaker, COPD/emphysema, chronic pain, and other problems chronicled in the past medical history below. He has not been eating and drinking well lately.? The temperature has been in the 90s for the past few days and her home has no air conditioning. Today her legs felt weak.? Her grandson also noticed she was slightly altered.? She was afraid of having another stroke and she was brought to [facility] for evaluation. She was slightly hypertensive but the rest of vitals were stable.? She clinically appears dehydrated.? Mental status rapidly improved with hydration CT/CTA head and neck was significant for 80% stenosis of the right internal carotid artery.? Labs were significant for a BUN of 47 and a creatinine of 3.2 with baseline creatinine approximate 1.5.? White cell count was normal.? TnI was 0.092 and then -.115 without chest pain. EKG is not available in the external viewer.? Urinalysis currently pending.? EKG had no acute ischemic changes.? Chest x-ray had no significant findings and pacemaker was noted.? Viral respiratory panel was completely negative. She was given IV fluids and sent to the medical floor.? She continues to complain of dysuria for the past few weeks.? She denied fever, chills, or sweats.? She denied nausea/vomiting/diarrhea. She will give Rocephin and follow-up UA in addition to keeping her hydrated. 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 Acute renal failure, dehydration 2. Acute encephalopathy secondary to above 3. History of TIA 4. CHF 5. CAD 6. s/p pacemaker 7. COPD Hospital Course: Ms. Juarez was admitted with weakness, she was found to have been eating poorly and was found to have ELIZABETH. She was confused as a result of this. She was rehydrated with IV fluids and improved and her creatinine resturned to normal and her encephalopathy resolved. She was discharged recommending to hold her entresto and valtrex due to her presentation with ELIZABETH until she saw her PCP and was recommended to see her PCP within one week. Exam Vital Signs (past 8 hours): Fraction of Inspired Oxygen 21 SaO2/FiO2 Ratio 457 Oxygen Delivery Method Room Air Oxygen Flow Rate 0 Narrative Exam Narrative: GEN: Alert and oriented CVS: regular rate and rhythm RESP: Clear to auscultation bilaterally Objective Labs 04/28/23 04:35 04/28/23 04:35 [facility] Medical History Acne CHF (congestive heart failure) Chicken pox Chronic back pain Colon polyps COPD (chronic obstructive pulmonary disease) Depression Diverticular disease Endometriosis Fibroids Fibromyalgia Ganglion cyst Herpes (~1999) History of urinary incontinence Hypertension Irritable bowel syndrome Ischemic colitis Measles Mobitz type 2 second degree AV block Psoriasis (~1999) Vision disorder Surgical History Anesthesia H/O: hysterectomy History of appendectomy History of bilateral oophorectomies History of tonsillectomy Pacemaker Family History Father Diabetes mellitus Mother Diabetes mellitus Brother Diabetes mellitus Sister Stroke Social History household members: family Smoking Status: Current every day smoker alcohol intake: never substance use type: does not use Discharge Plan Discharge Plan Patient Disposition: Home Health Service Provider Discharge Comment: Ms. Juarez was admitted with dehydration which affected her kidneys. She felt better with treatment. She should avoid taking her acyclovir and entresto for now. She should see her PCP within one week and ask if she can go back on these medications at this time. Discharge orders & Medications Prescriptions: Continued cyproheptadine 4 mg tablet 4 mg PO BID Qty: 180 1RF gabapentin 300 mg capsule 300 mg PO BEDTIME Qty: 90 1RF Rx Instructions: Take 1 capsule by mouth at bedtime oxybutynin chloride 5 mg tablet extended release 24hr 5 mg PO BEDTIME Qty: 90 3RF atorvastatin 80 mg tablet 80 mg PO BEDTIME Qty: 90 3RF carvedilol 3.125 mg tablet See Rx Instructions .ROUTE .COMPLEX Qty: 120 0RF Dose Instruction: TAKE ONE TABLET BY MOUTH TWICE DAILY WITH FOOD Rx Instructions: TAKE ONE TABLET BY MOUTH TWICE DAILY WITH FOOD valacyclovir 1 gram tablet 1,000 mg PO TID Qty: 60 1RF Rx Instructions: Take 1 tablet 3 times a day as needed one day. Can take for up to three days as needed. bupropion HCl [Wellbutrin SR] 150 mg tablet sustained-release 12 hr 150 mg PO DAILY Qty: 90 0RF clopidogrel 75 mg tablet 75 mg PO DAILY Qty: 90 1RF diclofenac sodium [Voltaren Arthritis Pain] 1 % gel 2 g topical QID Qty: 100 5RF Rx Instructions: apply to single elbow, wrist or hand; for hand includes palm/fingers/back of hand ondansetron 4 mg tablet,disintegrating 4 mg PO Q8H PRN (Reason: nausea and vomiting) Qty: 30 2RF mometasone 0.1 % cream 1 applic topical BID PRN (Reason: itching) Qty: 15 1RF Spiriva with HandiHaler 18 mcg capsule, w/inhalation device 1 cap inhalation DAILY Qty: 90 3RF Rx Instructions: puncture 1 cap using device; one dose = 2 inhalations (DME) contour plus See Rx Instructions .Route .MEDSUPPLY Qty: 28 12RF Rx Instructions: incontinence ultimate bladder pads. medline Discontinued acyclovir 400 mg tablet 400 mg PO BID PRN (Reason: cold sore) Qty: 10 2RF Entresto 24-26 mg tablet See Rx Instructions .ROUTE .COMPLEX Qty: 180 1RF Dose Instruction: take 1 tablet by mouth twice a day Rx Instructions: take 1 tablet by mouth twice a day Entresto 24-26 mg tablet 1 tab PO BID Follow up/Referrals: Mir Bingham, [Primary Care Provider] - 3-5 Days (hospitalized for elizabeth) Visit Report/Discharge Packet Stand Alone Forms: Patient Portal/API, Stroke Signs & Symptoms Discharge Data Primary Care Provider: Mir Bingham Discharges patient from system. Discharge Date/Time: 04/28/23 13:22 Quality VTE Deep Vein Thrombosis/Pulmonary Embolism Present on Admission: No
== END 2023-04-28 13:22 | disposition home health service (06) | DRG 640 ==
LOC: ED 18:26 → AC 18:27
PROVIDERS: Emergency Medicine; Student in an Organized Health Care Education/Training Program; Admitting Provider Specialist; Emergency Provider Emergency Medicine; PCP Family Medicine; Referring Provider Emergency Medicine; Visit Provider Specialist
DX: E86.0 Dehydration (principal); G93.41 Metabolic encephalopathy; N17.9 Acute kidney failure, unspecified; F17.210 Nicotine dependence, cigarettes, uncomplicated; R30.0 Dysuria; R63.0 Anorexia; I11.0 Hypertensive heart disease with heart failure; I50.9 Heart failure, unspecified; I25.10 Atherosclerotic heart disease of native coronary artery without angina pectoris; J44.9 Chronic obstructive pulmonary disease, unspecified; X30.XXXA Exposure to excessive natural heat, initial encounter; Z68.21 Body mass index [BMI] 21.0-21.9, adult; Z86.73 Personal history of transient ischemic attack (TIA), and cerebral infarction without residual deficits; Z95.0 Presence of cardiac pacemaker
CPT/HCPCS: 36415; 70450; 70496; 70498; 71045; 80048; 80053; 80305; 80320; 81001; 82550; 84484; 85025; 85610; 85730; 87086; 87633; 93005; 94640; 94762; 97162; 99284; J0360; J0696; J1644

== ENCOUNTER → 2023-05-07 11:37 | Outpatient (CLI) | payer OTHER, SELFPAY ==
[2023-04-25 20:30] VITALS: BMI 21.0
[2023-05-07 13:32] LABS: Alanine Aminotransferase 27 IU/L (<35); Albumin Globulin Ratio 1.3 (1.0-2.8); Alkaline Phosphatase 94 U/L (38-126); Aspartate Aminotransferase 27 IU/L (14-36); BUN Creatinine Ratio 20.2 (6-22); Bilirubin Total 0.6 mg/dL (0.2-1.3); Blood Urea Nitrogen 25 mg/dL (7-17); Calcium 9.5 mg/dL (8.4-10.2); Carbon Dioxide 27 mmol/L (22-32); Chloride 104 mmol/L (98-107); Estimated Glomerular Filt Rate 44 mL/min (>60); Globulin 3.1 g/dL (1.7-4.1); Glucose 80 mg/dL (80-110); HEMOLYSIS < 15 (0-50); Potassium 3.8 mmol/L (3.4-5.1); Sodium 138 mmol/L (137-145); Total Protein 7.1 g/dL (6.3-8.2)
== END ==
PROVIDERS: PCP Family Medicine; Referring Provider Family Medicine; Visit Provider Family Medicine
DX: I77.9 Disorder of arteries and arterioles, unspecified (principal); N17.9 Acute kidney failure, unspecified
CPT/HCPCS: 36415; 80053

== ENCOUNTER 2024-04-24 15:43 | Emergency (ER) | payer OTHER, SELFPAY ==
[2023-04-25 20:30] VITALS: BMI 21.0
[2024-04-24] VITALS (7 sets, daily range): BP systolic 151–219; BP diastolic 83–105; PULSE 75–98; RESP 16–23; TEMP 36.8; O2SAT 95–96; BMI 19.5
--- NOTE | 2024-04-24 16:24 | DI.RAD.S_ITS ---
PROCEDURE: XR CHEST 1V INDICATIONS: Chest pain and shortness of breath TECHNIQUE: One view of the chest was acquired. COMPARISON: [facility], CR, XR CHEST 1V, 04/25/2023, 19:09. [facility], CR, XR CHEST 1V, 03/28/2022, 18:05. FINDINGS: Surgical changes and devices: Cardiac pacemaker is seen with pulse generator in the left chest. Lungs and pleura: Lungs are hyperexpanded and clear. No pleural effusions or pneumothorax. Mediastinum: Mediastinal contours appear normal. Heart size is normal. Bones and chest wall: No suspicious bony lesions. Overlying soft tissues appear unremarkable. IMPRESSION: No acute cardiopulmonary abnormality is seen. Approved by: Fan Cruz M.D. on 04/24/2024 at 17:01
[2024-04-24 17:35] LABS: Add Manual Diff / Slide Review NO; Basophils Absolute Auto 100 /uL (0-100); Basophils Percent Auto 1.1 % (0-2); Eosinophils Absolute Auto 100 /uL (0-450); Eosinophils Percent Auto 1.3 % (2-4); Hematocrit 43.9 % (36-46); Hemoglobin 14.8 g/dL (12.0-16.0); Lymphocytes Absolute Auto 2000 /uL (1100-4500); Mean Corpuscular HGB Conc 33.6 % (30-36); Mean Corpuscular Hemoglobin 30.3 PG (26-34); Monocytes Absolute Auto 600 /uL (0-900); Monocytes Percent Auto 6.8 % (3-14); Neutrophils Absolute Auto 5700 /uL (1500-7000); Neutrophils Percent Auto 66.8 % (50-75); Platelet Count 187 X10^3/uL (150-400); Red Blood Cell Count 4.88 X10^6/uL (4.0-5.2); Red Cell Distribution Width 15.5 % (11.6-14.8); White Blood Cell Count 8.5 X10^3/uL (4.5-11.0)
[2024-04-24 17:42] LABS: Alanine Aminotransferase 16 IU/L (<35); Albumin 4.2 g/dL (3.5-5.0); Albumin Globulin Ratio 1.4 (1.0-2.8); Alkaline Phosphatase 104 U/L (38-126); Aspartate Aminotransferase 30 IU/L (14-36); BUN Creatinine Ratio 19.7 (6-22); Bilirubin Total 0.7 mg/dL (0.2-1.3); Blood Urea Nitrogen 23 mg/dL (7-17); Calcium 9.3 mg/dL (8.4-10.2); Carbon Dioxide 27 mmol/L (22-32); Chloride 108 mmol/L (98-107); Creatine Kinase 44 U/L (30-135); Estimated Glomerular Filt Rate 47 mL/min (>60); Globulin 3.1 g/dL (1.7-4.1); Glucose 88 mg/dL (80-110); HEMOLYSIS 28 (0-50); Lipase 144 U/L (23-300); Potassium 4.7 mmol/L (3.4-5.1); Sodium 140 mmol/L (137-145); Total Protein 7.3 g/dL (6.3-8.2)
[2024-04-24 17:53] LABS: NT-proBNP (BNP-Adult 18+) 1010 pg/mL (<450); Troponin I < 0.012 ng/mL (0.01-0.034)
[2024-04-24 17:54] LABS: Influenza A - CEPHEID Flu A NEGATIVE (NEGATIVE); Influenza B - CEPHEID Flu B NEGATIVE (NEGATIVE); Respiratory Syncytial Virus Negative (Negative)
[2024-04-24 17:58] LABS: Procalcitonin 0.035 ng/mL (<0.5)
[2024-04-24 18:01] LABS: COVID-19 CEPHEID 4-PLEX PCR Negative (Negative)
--- NOTE | 2024-04-24 18:16 | ED_ITS ---
HPI - Neuro Symptoms/Deficit General Chief Complaint: Neuro Symptoms/Deficit Stated Complaint: not feeling well, chest and abd px,hx of stroke Time Seen by Provider: 04/24/24 16:24 Source: patient and family Mode of arrival: Wheelchair History of Present Illness HPI Narrative: 83-year-old woman followed by Dr. 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 Questionable left-sided face numbness. Almost immediately upon arrival she is requesting to go home as she feels better and has been ?waiting way too long?. She is accompanied by her grandson. She is little recollection of why she wanted to be seen in the emergency department in the 1st place. Her daughter apparently brought in her med pack and her grandson notes that she has not taken her medications today, it looks like she has not taken them all week. She currently lives independently home health has been attempted but she tends to have increasing paranoia and will not allow non family members into her home. Her grandson does check on her every day. He has been trying to talk to the family about her worsening cognitive visits but much of the family is not particularly interested. She is pleasantly confused, aware of name and location but not date. No complaints by the time the 2 of us are chatting. On Anticoagulants: Yes (clopidogrel) Related Data Previous Rx's Medication Instructions Recorded ondansetron 4 mg disintegrating 4 mg PO Q8H PRN nausea and 10/31/21 tablet vomiting #30 tabs diclofenac sodium 1 % topical gel 2 g topical QID #100 grams 03/17/22 (Voltaren Arthritis Pain) contour plus #28 ea 05/26/22 tiotropium bromide 18 mcg capsule 1 cap inhalation DAILY #90 05/26/22 with inhalation device (Spiriva inhalations with HandiHaler) valacyclovir 1 gram tablet 1,000 mg PO TID cold sore #60 tabs 03/19/23 atorvastatin 80 mg tablet 80 mg PO BEDTIME #90 tabs 07/17/23 oxybutynin chloride 5 mg 5 mg PO BEDTIME #90 tabs 07/17/23 tablet,extended release 24 hr carvedilol 3.125 mg tablet See Rx Instructions .Route 08/09/23 .COMPLEX #120 tabs cyproheptadine 4 mg tablet 4 mg PO BID #180 tabs 01/04/24 gabapentin 300 mg capsule 300 mg PO ONCE PM #90 caps 01/04/24 clopidogrel 75 mg tablet 75 mg PO DAILY #90 tabs 01/24/24 mupirocin 2 % topical ointment 1 applic topical TID #15 grams 02/12/24 triamcinolone acetonide 0.1 % 1 applic topical DAILY #15 grams 02/12/24 topical cream bupropion HCl 150 mg tablet,12 hr 150 mg PO DAILY #90 tabs 02/20/24 sustained-release Allergies Allergy/AdvReac Type Severity Reaction Status Date / Time latex [LATEX] Allergy Mild Verified 04/24/24 15:48 amoxicillin [AMOXICILLIN] Allergy Unknown Verified 04/24/24 15:48 levofloxacin [LEVOFLOXACIN] Allergy Unknown Verified 04/24/24 15:48 niacin Allergy Unknown Verified 04/24/24 15:48 sulfamethoxazole Allergy Unknown Verified 04/24/24 15:48 [From Bactrim] tobramycin Allergy Unknown Verified 04/24/24 15:48 trimethoprim [From Bactrim] Allergy Unknown Verified 04/24/24 15:48 varenicline [From Chantix] Allergy Unknown Verified 04/24/24 15:48 Review of Systems Review of Systems Narrative: Pertinent positive and negative findings as per HPI, limited due to cognitive deficits Hematologic/Lymphatic On Anticoagulants: Yes (clopidogrel) Patient History Medical History Cat bite of forearm Carotid artery disease Mobitz type 2 second degree AV block CHF (congestive heart failure) Ganglion cyst COPD (chronic obstructive pulmonary disease) Hypertension Depression Vision disorder Psoriasis (~1999) Acne Fibromyalgia Chronic back pain Measles Chicken pox Herpes (~1999) Fibroids Endometriosis History of urinary incontinence Irritable bowel syndrome Diverticular disease Colon polyps Ischemic colitis Surgical History Anesthesia History of tonsillectomy History of appendectomy History of bilateral oophorectomies H/O: hysterectomy Pacemaker Family History Father Diabetes mellitus Mother Diabetes mellitus Brother Diabetes mellitus Sister Stroke Social History household members: family Smoking Status: Current every day smoker alcohol intake: never substance use type: does not use Smoking Status: Current every day smoker tobacco type: cigarettes alcohol intake frequency: holidays/special occasions only Substance Use Type: does not use Exam Initial Vital Signs Initial Vital Signs: Vital Signs Temperature 98.2 F 04/24/24 15:48 Pulse Rate 98 H 04/24/24 15:48 Respiratory Rate 16 04/24/24 15:48 Blood Pressure 151/83 H 04/24/24 15:48 Pulse Oximetry 96 04/24/24 15:48 Oxygen Delivery Method Room Air 04/24/24 15:48 General: Older, frail appearing, no acute distress HEENT: Moist mucous membranes, normal sclera with reactive pupils, Neck: No JVD, supple Respiratory: Lungs are clear to auscultation, no wheezing no rales no rhonchi. Full and symmetrical air movement Cardiac: Regular rate and rhythm no murmurs no bruits Abdomen: Soft, nontender, good bowel tones, no flank pain Skin: Quite thin with occasional bruises but otherwise Warm and dry, no rashes Neurologic: Grossly neurologically intact with no obvious asymmetries or abnormalities Extremities: No trauma, well perfused Psych: Oriented x2 Course Orders Ordered: ED Orders 04/24/24 16:24 XR chest 1V Stat EKG-12 Lead Stat 04/24/24 16:58 Consult to RECONCILER - Concessionist Stat 04/24/24 17:00 Covid-19 + FLU A/B + RSV - PCR Stat 04/24/24 17:05 Complete Blood Count AUTO DIFF Stat Comprehensive Metabolic Panel Stat Lipase Stat NT-proBNP (BNP-Adult 18+) Stat Procalcitonin Stat Troponin & CK Cardiac Panel Stat Vital Signs Vital signs: Vital Signs - 8 hr 04/24/24 15:48 Temperature 98.2 F Pulse Rate 98 H Respiratory Rate 16 Blood Pressure 151/83 H Pulse Oximetry 96 Oxygen Delivery Method Room Air MDM - Neuro Symptoms/Deficit Lab Data 04/24/24 17:05 04/24/24 17:05 Labs: Lab Results 04/24/24 04/24/24 Range/Units 17:00 17:05 WBC 8.5 (4.5-11.0) X10^3/uL RBC 4.88 (4.0-5.2) X10^6/uL Hgb 14.8 (12.0-16.0) g/dL Hct 43.9 (36-46) % MCV 90.0 (80-100) fL MCH 30.3 (26-34) PG MCHC 33.6 (30-36) % RDW 15.5 H (11.6-14.8) % Plt Count 187 (150-400) X10^3/uL Neut % (Auto) 66.8 (50-75) % Lymph % (Auto) 24.0 L (25-40) % [place] % (Auto) 6.8 (3-14) % Eos % (Auto) 1.3 L (2-4) % Baso % (Auto) 1.1 (0-2) % Neut # (Auto) 5700 (4071-2533) /uL Lymph # (Auto) 2000 (7125-9158) /uL [place] # (Auto) 600 (0-900) /uL Eos # (Auto) 100 (0-450) /uL Baso # (Auto) 100 (0-100) /uL Sodium 140 (137-145) mmol/L Potassium 4.7 (3.4-5.1) mmol/L Chloride 108 H (98-107) mmol/L Carbon Dioxide 27 (22-32) mmol/L BUN 23 H (7-17) mg/dL Creatinine 1.17 H (0.52-1.04) mg/dL Estimated GFR 47 L (>60) mL/min BUN/Creatinine Ratio 19.7 (6-22) Glucose 88 (80-110) mg/dL Calcium 9.3 (8.4-10.2) mg/dL Total Bilirubin 0.7 (0.2-1.3) mg/dL AST 30 (14-36) IU/L ALT 16 (<35) IU/L Alkaline Phosphatase 104 (38-126) U/L Total Creatine Kinase 44 (30-135) U/L Troponin I < 0.012 (0.01-0.034) ng/mL NT-Pro-B Natriuret Pep 1010 H (<450) pg/mL Total Protein 7.3 (6.3-8.2) g/dL Albumin 4.2 (3.5-5.0) g/dL Globulin 3.1 (1.7-4.1) g/dL Albumin/Globulin Ratio 1.4 (1.0-2.8) Lipase 144 (23-300) U/L Procalcitonin 0.035 (<0.5) ng/mL SARS-CoV-2 (PCR) Negative (Negative) Influenza A (RT-PCR) Flu a negative (NEGATIVE) Influenza B (RT-PCR) Flu b negative (NEGATIVE) RSV (PCR) Negative (Negative) MDM Narrative Medical decision making narrative: CC: Possible chest pain possible left-sided facial numbness definite medical noncompliance Complicating co-morbidities: Multiple complex comorbidities please see HPI Data collected from: patient, grandson Social determinants of health that may influence the patients condition: Lives independently, per grandson's description it sounds like paranoid delusions seemed to be increasing, very reluctant to consider outside care, moving and family is only minimally involved and interested in convincing her that additional living opportunity may well be required Medical records reviewed: Notes from her primary care physician over the last year reviewed Differential considered: Acute coronary syndrome, stroke, hypertension, hypertensive crisis, significant cognitive and progressive dysfunction Exam documented above, pertinent findings include: Patient is somewhat cranky but cooperative no localizing neurologic findings and exam is benign Lab Test results independently reviewed as above. Pertinent findings: CBC is unremarkable Chemistries are reassuring. Her renal function appears to be at her baseline or better Slightly elevated BNP with no clinical signs or symptoms of congestive heart failure Troponin is undetectable Procalcitonin is low PCR serology for COVID, influenza and RSV are negative Imaging studies independently reviewed: Chest x-ray is unremarkable Consultations: Social work Discussion: 83-year-old woman who has not been taking in any of her medications with history acute kidney disease, carotid stenosis, hypertension. Blood pressure is significantly elevated. It sounds like she perhaps had an episode of chest pain today perhaps had some left-sided facial numbness she does not actually recall. Had a long discussion with the grandson regarding the fact that she has been taking her medications they are in a prepack and she was not aware that she was not taking them. He will be more aware of this but does not feel that he will be all that effective in getting her to take her medications. I did ask the social service agency director to talk with him about possibilities for March different living options. Given the degree of cognitive dysfunction and seeing today, I think the next move likely is going to need to be a dementia facility. The grandson notes that she has not done well with home health in the past. He is given resources from social service agency director will talk about this with his family and we will schedule follow up appointment Dr. Bingham. Discharge Plan Departure Patient Disposition: Home Clinical Impression: Medication noncompliance due to cognitive impairment, Facial numbness Chest pain Qualifiers: Chest pain type: unspecified Qualified Code(s): R07.9 - Chest pain, unspecified Instructions: DI for Safely Taking and Storing Medications -- Adults Activity Restrictions/Additional Instructions: Thank you for coming in today I am a bit concerned that you have not been taking your medications and do not seem to be completely aware that you have not been taking your medications. Your medications are important for keeping your heart safe and preventing a stroke. In the emergency department your blood pressure was significantly elevated. I would recommend you restart all medications as prescribed and as dispensed in the pharmacy pre pack that you have available. I would encourage you to talk with your family about how safe it is for you to continue to live completely independently. Nobody wants to move, however you may find that you are safer, actually live longer and have more friends and interactions if you are in a setting where somebody can help with medications and you have other people around. I would encourage you to talk with your primary care physician. If you feel that you are having worsening symptoms or new findings, please return to the ER Prescriptions: No Action valacyclovir 1 gram tablet 1,000 mg PO TID Qty: 60 1RF Rx Instructions: Take 1 tablet 3 times a day as needed one day. Can take for up to three days as needed. atorvastatin 80 mg tablet 80 mg PO BEDTIME Qty: 90 3RF oxybutynin chloride 5 mg tablet extended release 24hr 5 mg PO BEDTIME Qty: 90 3RF carvedilol 3.125 mg tablet See Rx Instructions .ROUTE .COMPLEX Qty: 120 2RF Dose Instruction: TAKE ONE TABLET BY MOUTH TWICE DAILY WITH FOOD Rx Instructions: TAKE ONE TABLET BY MOUTH TWICE DAILY WITH FOOD gabapentin 300 mg capsule 300 mg PO ONCE PM Qty: 90 0RF cyproheptadine 4 mg tablet 4 mg PO BID Qty: 180 0RF clopidogrel 75 mg tablet 75 mg PO DAILY Qty: 90 1RF bupropion HCl 150 mg tablet sustained-release 12 hr 150 mg PO DAILY Qty: 90 0RF diclofenac sodium [Voltaren Arthritis Pain] 1 % gel 2 g topical QID Qty: 100 5RF Rx Instructions: apply to single elbow, wrist or hand; for hand includes palm/fingers/back of hand ondansetron 4 mg tablet,disintegrating 4 mg PO Q8H PRN (Reason: nausea and vomiting) Qty: 30 2RF Spiriva with HandiHaler 18 mcg capsule, w/inhalation device 1 cap inhalation DAILY Qty: 90 3RF Rx Instructions: puncture 1 cap using device; one dose = 2 inhalations (DME) contour plus See Rx Instructions .Route .MEDSUPPLY Qty: 28 12RF Rx Instructions: incontinence ultimate bladder pads. medline triamcinolone acetonide 0.1 % cream 1 applic topical DAILY Qty: 15 0RF Rx Instructions: apply daily to affected areas mupirocin 2 % ointment 1 applic topical TID Qty: 15 0RF Rx Instructions: apply three times a day to cat bite Referrals: Mir Bingham DO [Primary Care Provider] - Stand Alone Forms: Patient Portal/API
--- NOTE | 2024-04-24 19:10 | CM.SWNOTE ---
ED SUBSTITUTE TEACHER Note: Patient is a 83yo female, resident of [place], presented to the ED complaining of left chest and shoulder pain. Patient has a PMH of chronic renal failure, hypertension, CAD. Patient's primary care provider is Dr. Mir Bingham and insurance [facility] of [facility]. ED SUBSTITUTE TEACHER was consulted due to concerns of pt medication management and possible home health referral. ED SUBSTITUTE TEACHER discussed pt with pt's grandson, Ruslan, and ED Provider. It was recommended by Provider that the family start discussion of possible memory care placement to ensure pt is medication compliant as pt lives alone right now. ED SUBSTITUTE TEACHER entered room, introduced self and role. Patient was found in bed, cooperative with assessment. ED SUBSTITUTE TEACHER discussed home health with pt and pt explained she had history with [facility] years ago. Pt was agreeable to referral to [facility] again for RN, HH Aide and SUBSTITUTE TEACHER only to prolong pt's main goals of independence at home. ED SUBSTITUTE TEACHER to send referral to [facility] . ED SUBSTITUTE TEACHER provided A Place for [facility] contact, Ruchi Devries RN for pt's family to consult for placement in the future. Plan: Pt discharged with family to transport, follow up with [facility] referral. LALITA Alonso
== END 2024-04-24 19:01 | disposition home or self-care (01) ==
PROVIDERS: Emergency Medicine; Emergency Provider Emergency Medicine; PCP Family Medicine
DX: R07.9 Chest pain, unspecified (principal); R06.02 Shortness of breath; R20.0 Anesthesia of skin; R41.9 Unspecified symptoms and signs involving cognitive functions and awareness; Z95.0 Presence of cardiac pacemaker; I44.1 Atrioventricular block, second degree; Z11.52 Encounter for screening for COVID-19
CPT/HCPCS: 0241U; 71045; 80053; 82550; 83690; 83880; 84145; 84484; 85025; 99283; 99284

== ENCOUNTER 2024-05-07 01:59 | Emergency (ER) | payer OTHER, SELFPAY ==
[2023-04-25 20:30] VITALS: BMI 21.0
[2024-05-07] VITALS (16 sets, daily range): BP systolic 171–235; BP diastolic 72–116; PULSE 74–85; RESP 16–22; TEMP 36.3; O2SAT 91–95; BMI 19.5
[2024-05-07 02:45] LABS: Add Manual Diff / Slide Review NO; Basophils Absolute Auto 100 /uL (0-100); Basophils Percent Auto 0.9 % (0-2); Eosinophils Absolute Auto 300 /uL (0-450); Eosinophils Percent Auto 2.1 % (2-4); Hematocrit 47.2 % (36-46); Hemoglobin 15.8 g/dL (12.0-16.0); Lymphocytes Absolute Auto 2400 /uL (1100-4500); Lymphocytes Percent Auto 18.3 % (25-40); Mean Corpuscular HGB Conc 33.5 % (30-36); Mean Corpuscular Hemoglobin 30.1 PG (26-34); Mean Corpuscular Volume 89.8 fL (80-100); Monocytes Absolute Auto 900 /uL (0-900); Monocytes Percent Auto 6.8 % (3-14); Neutrophils Absolute Auto 9500 /uL (1500-7000); Neutrophils Percent Auto 71.9 % (50-75); Platelet Count 238 X10^3/uL (150-400); Red Blood Cell Count 5.26 X10^6/uL (4.0-5.2); Red Cell Distribution Width 15.8 % (11.6-14.8); White Blood Cell Count 13.2 X10^3/uL (4.5-11.0)
--- NOTE | 2024-05-07 02:50 | ED.GENADULT ---
HPI - General Adult General Chief complaint: Abdominal Pain Stated complaint: Nausea, abd pain Time Seen by Provider: 05/07/24 02:00 Source: patient and EMS Mode of arrival: EMS Limitations: no limitations History of Present Illness HPI narrative: Patient is an 83-year-old female who by EMS for evaluation of nausea, abdominal pain. Patient states that her symptoms started about 0300 hours yesterday afternoon. Been persistent since then. She was not vomited. No fevers. No recent travel. No recent antibiotics. When EMS arrived they found the patient on the toilet. She had had a small bowel movement. By the time I evaluated her she had had another very large bowel movement here in the emergency department and she states that the abdominal pain that she was having prior to arrival has normal completely resolved. Was still having some nausea but she states that it is feeling much better. She states that she also feels like she was having a urinary tract infection she was having quite a bit of urinary frequency and urgency. In the past she has had issues with urinary retention where she had to do self catheterizations that she states she just stopped doing them on her own at home. She does not see a urologist. She stopped in the catheterizations quite some time ago. Related Data Previous Rx's Medication Instructions Recorded ondansetron 4 mg disintegrating 4 mg PO Q8H PRN nausea and 10/31/21 tablet vomiting #30 tabs diclofenac sodium 1 % topical gel 2 g topical QID #100 grams 03/17/22 (Voltaren Arthritis Pain) contour plus #28 ea 05/26/22 tiotropium bromide 18 mcg capsule 1 cap inhalation DAILY #90 05/26/22 with inhalation device (Spiriva inhalations with HandiHaler) valacyclovir 1 gram tablet 1,000 mg PO TID cold sore #60 tabs 03/19/23 atorvastatin 80 mg tablet 80 mg PO BEDTIME #90 tabs 07/17/23 oxybutynin chloride 5 mg 5 mg PO BEDTIME #90 tabs 07/17/23 tablet,extended release 24 hr carvedilol 3.125 mg tablet See Rx Instructions .Route 08/09/23 .COMPLEX #120 tabs gabapentin 300 mg capsule 300 mg PO ONCE PM #90 caps 01/04/24 clopidogrel 75 mg tablet 75 mg PO DAILY #90 tabs 01/24/24 mupirocin 2 % topical ointment 1 applic topical TID #15 grams 02/12/24 triamcinolone acetonide 0.1 % 1 applic topical DAILY #15 grams 02/12/24 topical cream bupropion HCl 150 mg tablet,12 hr 150 mg PO DAILY #90 tabs 02/20/24 sustained-release cyproheptadine 4 mg tablet 4 mg PO BID #180 tabs 04/25/24 nitrofurantoin 100 mg PO BID #14 caps 05/06/24 monohydrate/macrocrystals 100 mg capsule (Macrobid) Allergies Allergy/AdvReac Type Severity Reaction Status Date / Time latex [LATEX] Allergy Mild Verified 04/24/24 15:48 amoxicillin [AMOXICILLIN] Allergy Unknown Verified 04/24/24 15:48 levofloxacin [LEVOFLOXACIN] Allergy Unknown Verified 04/24/24 15:48 niacin Allergy Unknown Verified 04/24/24 15:48 sulfamethoxazole Allergy Unknown Verified 04/24/24 15:48 [From Bactrim] tobramycin Allergy Unknown Verified 04/24/24 15:48 trimethoprim [From Bactrim] Allergy Unknown Verified 04/24/24 15:48 varenicline [From Chantix] Allergy Unknown Verified 04/24/24 15:48 Review of Systems Review of Systems ROS Unobtainable: All systems reviewed & are unremarkable except as noted in HPI and below Patient History Medical History Cat bite of forearm Carotid artery disease Mobitz type 2 second degree AV block CHF (congestive heart failure) Ganglion cyst COPD (chronic obstructive pulmonary disease) Hypertension Depression Vision disorder Psoriasis (~1999) Acne Fibromyalgia Chronic back pain Measles Chicken pox Herpes (~1999) Fibroids Endometriosis History of urinary incontinence Irritable bowel syndrome Diverticular disease Colon polyps Ischemic colitis Surgical History Anesthesia History of tonsillectomy History of appendectomy History of bilateral oophorectomies H/O: hysterectomy Pacemaker Family History Father Diabetes mellitus Mother Diabetes mellitus Brother Diabetes mellitus Sister Stroke Social History household members: family Smoking Status: Current every day smoker alcohol intake: never substance use type: does not use Smoking Status: Current every day smoker tobacco type: cigarettes alcohol intake frequency: holidays/special occasions only Substance Use Type: does not use Exam Initial Vital Signs Initial Vital Signs: Vital Signs Temperature 97.4 F L 05/07/24 02:00 Pulse Rate 74 05/07/24 02:00 Respiratory Rate 18 05/07/24 02:00 Blood Pressure 213/102 H 05/07/24 02:00 Pulse Oximetry 95 05/07/24 02:00 Oxygen Delivery Method Room Air 05/07/24 02:00 Const General: cooperative, comfortable and No ill appearing HENMT Head: normal to inspection and normocephalic Resp Effort & Inspection: normal respiratory effort Auscultation: clear to auscultation bilaterally Cardio Rate: regular rate Rhythm: regular rhythm GI Inspection: normal to inspection and non-distended Palpation: soft, No firm, No guarding and No tender Neuro General: patient alert, patient awake and moves all extremities Extrem General: normal to inspection Course Orders Ordered: Discontinued Medications Hydralazine HCl (Hydralazine 20 Mg/Ml Vial) 5 mg IV NOW ONE Stop: 05/07/24 06:05 Last Admin: 05/07/24 06:40 Dose: 5 mg Documented By: SHARON Sodium Chloride (Normal Saline 0.9%) 1,000 mls @ 1,000 mls/hr IV BOLUS ONE Stop: 05/07/24 04:00 Last Infusion: 05/07/24 04:25 Dose: Infused Documented By: Admin: 05/07/24 03:26 Dose: 1,000 mls/hr Documented By: BAM Ondansetron HCl (Ondansetron 4 Mg/2 Ml Inj) 4 mg IV NOW ONE Stop: 05/07/24 02:01 Last Admin: 05/07/24 05:25 Dose: Not Given Documented By: BAM Vital Signs Vital signs: Vital Signs - 8 hr 05/07/24 02:00 05/07/24 02:10 05/07/24 02:30 Temperature 97.4 F L Pulse Rate 74 75 Respiratory Rate 18 21 Blood Pressure 213/102 H 195/90 H Pulse Oximetry 95 Oxygen Delivery Method Room Air 05/07/24 02:30 05/07/24 03:00 05/07/24 03:32 Temperature Pulse Rate 74 74 74 Respiratory Rate 19 18 16 Blood Pressure Pulse Oximetry 94 91 Oxygen Delivery Method Room Air 05/07/24 04:00 05/07/24 04:31 05/07/24 04:35 Temperature Pulse Rate 76 85 81 Respiratory Rate 22 21 16 Blood Pressure Pulse Oximetry 95 95 Oxygen Delivery Method Room Air Room Air 05/07/24 04:35 Temperature Pulse Rate Respiratory Rate Blood Pressure 216/102 H Pulse Oximetry Oxygen Delivery Method Medical Decision Making Medical Records Medical records reviewed: Yes I reviewed the patient's medical records. Lab Data Lab results reviewed: Yes I reviewed the patient's lab results. 05/07/24 02:35 05/07/24 02:35 Labs: Lab Results 05/07/24 05/07/24 Range/Units 02:35 05:00 WBC 13.2 H (4.5-11.0) X10^3/uL RBC 5.26 H (4.0-5.2) X10^6/uL Hgb 15.8 (12.0-16.0) g/dL Hct 47.2 H (36-46) % MCV 89.8 (80-100) fL MCH 30.1 (26-34) PG MCHC 33.5 (30-36) % RDW 15.8 H (11.6-14.8) % Plt Count 238 (150-400) X10^3/uL Neut % (Auto) 71.9 (50-75) % Lymph % (Auto) 18.3 L (25-40) % [place] % (Auto) 6.8 (3-14) % Eos % (Auto) 2.1 (2-4) % Baso % (Auto) 0.9 (0-2) % Neut # (Auto) 9500 H (9139-1475) /uL Lymph # (Auto) 2400 (0903-1436) /uL [place] # (Auto) 900 (0-900) /uL Eos # (Auto) 300 (0-450) /uL Baso # (Auto) 100 (0-100) /uL Sodium 141 (137-145) mmol/L Potassium 3.7 (3.4-5.1) mmol/L Chloride 108 H (98-107) mmol/L Carbon Dioxide 25 (22-32) mmol/L BUN 29 H (7-17) mg/dL Creatinine 1.06 H (0.52-1.04) mg/dL Estimated GFR 53 L (>60) mL/min BUN/Creatinine Ratio 27.4 H (6-22) Glucose 141 H (80-110) mg/dL Lactate 1.3 (0.7-2.1) mmol/L Calcium 9.3 (8.4-10.2) mg/dL Total Bilirubin 0.7 (0.2-1.3) mg/dL AST 26 (14-36) IU/L ALT 15 (<35) IU/L Alkaline Phosphatase 106 (38-126) U/L Total Protein 7.3 (6.3-8.2) g/dL Albumin 4.2 (3.5-5.0) g/dL Globulin 3.1 (1.7-4.1) g/dL Albumin/Globulin Ratio 1.4 (1.0-2.8) Lipase 155 (23-300) U/L Urine RBC 0-1/hpf (0-5/HPF) Urine WBC None seen (0-5/HPF) Ur Squamous Epith Cells None seen (0-5/HPF) Urine Bacteria None seen (None) Ur Culture Indicated? Cult not indicated Vol Urine Centrifuged 10ml (spun) Urine Dip Bedside Urine Glucose Negative Bedside Urine Bilirubin - Negative Bedside Urine Ketone - Negative Urine Specific [place] 1.015 Bedside Urine Occult Blood +/- Bedside Urine pH 6.0 Bedside Urine Protein - Negative Bedside Urine Urobilinogen - Negative Bedside Urine Nitrite - Negative Bedside Urine Leukocytes - Negative Esterase Point of care testing: Urine Dip Bedside Urine Glucose Negative Bedside Urine Bilirubin - Negative Bedside Urine Ketone - Negative Urine Specific [place] 1.015 Bedside Urine Occult Blood +/- Bedside Urine pH 6.0 Bedside Urine Protein - Negative Bedside Urine Urobilinogen - Negative Bedside Urine Nitrite - Negative Bedside Urine Leukocytes - Negative Esterase Imaging Data CT scan - abdomen/pelvis: Radiologist's Impression: Findings compatible with colitis involving the transverse and descending colon. No pericolonic focal drainable collections or pneumoperitoneum MDM Narrative Medical decision making narrative: After having a large bowel movement initially here in the ER she states that the symptoms that prompted her to contacted EMS greatly resolved. Review of her medical record shows that she has had history of ischemic colitis. She does have a leukocytosis which can definitely be explained by her colitis. No recent travel. No recent antibiotics. Normal lactate. CT scan shows colitis but no signs of obstruction or abscess. Patient had a large distended bladder on the CT scan. When questioned about this was when she told me about her prior history of urinary issues and at 1 point she was doing self-catheterizations at home. She does not see a urologist. Londono catheter was placed. Greater than 1 L of urine resulted. Urinalysis did not show any signs of a urinary tract infection. I suspect that her urinary urgency and frequency are because of the urinary retention. Had a discussion with her regarding this. We will leave the Londono catheter in place and have her contact Urology for follow-up. No specific indication for antibiotics. I suspect that her colitis will improve with time. Patient is now tolerating oral intake. Discharge patient home with instructions to contact her primary doctor for follow-up. Patient was also hypertensive. Does not appear to have end-organ dysfunction because this hypertension. She potentially missed her blood pressure medications yesterday. Dose of hydralazine was given here in the ER she was instructed to take her blood pressure medications as directed Discharge Plan Departure Patient Disposition: Home Clinical Impression: Colitis, Acute urinary retention Instructions: Diarrhea, How to Care for Your [place]o Catheter -- Female, DI for Urinary Retention in Women, DI for Colitis Activity Restrictions/Additional Instructions: When the office is open later today I do recommend that you contact the Urology Department of the number provided below for follow-up to have further evaluation of the urinary catheter and the fact that you were retaining urine. Also recommend that you contact your primary doctor. Your blood pressure was elevated today. You are given an extra dose of blood pressure medicine but continue to take all of your regular blood pressure medications as directed. I would expect that you are going to continue to loose stools for the next 24-48 hours. Be sure that you are staying hydrated. I recommend a bland diet. Return to the emergency department for new or worsening symptoms. Prescriptions: No Action valacyclovir 1 gram tablet 1,000 mg PO TID Qty: 60 1RF Rx Instructions: Take 1 tablet 3 times a day as needed one day. Can take for up to three days as needed. atorvastatin 80 mg tablet 80 mg PO BEDTIME Qty: 90 3RF oxybutynin chloride 5 mg tablet extended release 24hr 5 mg PO BEDTIME Qty: 90 3RF carvedilol 3.125 mg tablet See Rx Instructions .ROUTE .COMPLEX Qty: 120 2RF Dose Instruction: TAKE ONE TABLET BY MOUTH TWICE DAILY WITH FOOD Rx Instructions: TAKE ONE TABLET BY MOUTH TWICE DAILY WITH FOOD gabapentin 300 mg capsule 300 mg PO ONCE PM Qty: 90 0RF clopidogrel 75 mg tablet 75 mg PO DAILY Qty: 90 1RF bupropion HCl 150 mg tablet sustained-release 12 hr 150 mg PO DAILY Qty: 90 0RF cyproheptadine 4 mg tablet 4 mg PO BID Qty: 180 0RF nitrofurantoin monohyd/m-cryst [Macrobid] 100 mg capsule 100 mg PO BID Qty: 14 0RF Rx Instructions: must administer with a meal/food take twice a day for 7 days diclofenac sodium [Voltaren Arthritis Pain] 1 % gel 2 g topical QID Qty: 100 5RF Rx Instructions: apply to single elbow, wrist or hand; for hand includes palm/fingers/back of hand ondansetron 4 mg tablet,disintegrating 4 mg PO Q8H PRN (Reason: nausea and vomiting) Qty: 30 2RF Spiriva with HandiHaler 18 mcg capsule, w/inhalation device 1 cap inhalation DAILY Qty: 90 3RF Rx Instructions: puncture 1 cap using device; one dose = 2 inhalations (DME) contour plus See Rx Instructions .Route .MEDSUPPLY Qty: 28 12RF Rx Instructions: incontinence ultimate bladder pads. medline triamcinolone acetonide 0.1 % cream 1 applic topical DAILY Qty: 15 0RF Rx Instructions: apply daily to affected areas mupirocin 2 % ointment 1 applic topical TID Qty: 15 0RF Rx Instructions: apply three times a day to cat bite Referrals: Mir Bingham DO [Primary Care Provider] - Damon Dillon MD [Physician] - Stand Alone Forms: Patient Portal/API
[2024-05-07 02:55] LABS: Alanine Aminotransferase 15 IU/L (<35); Albumin 4.2 g/dL (3.5-5.0); Albumin Globulin Ratio 1.4 (1.0-2.8); Alkaline Phosphatase 106 U/L (38-126); Aspartate Aminotransferase 26 IU/L (14-36); BUN Creatinine Ratio 27.4 (6-22); Bilirubin Total 0.7 mg/dL (0.2-1.3); Blood Urea Nitrogen 29 mg/dL (7-17); Calcium 9.3 mg/dL (8.4-10.2); Carbon Dioxide 25 mmol/L (22-32); Chloride 108 mmol/L (98-107); Estimated Glomerular Filt Rate 53 mL/min (>60); Globulin 3.1 g/dL (1.7-4.1); Glucose 141 mg/dL (80-110); HEMOLYSIS 17 (0-50); Lactate (Lactic Acid) 1.3 mmol/L (0.7-2.1); Lipase 155 U/L (23-300); Potassium 3.7 mmol/L (3.4-5.1); Sodium 141 mmol/L (137-145); Total Protein 7.3 g/dL (6.3-8.2)
--- NOTE | 2024-05-07 03:01 | DI.CT.S_ITS ---
PROCEDURE: CT ABDOMEN PELVIS W CON INDICATIONS: Generalized abdominal pain TECHNIQUE: After the administration of intravenous contrast, axial sections acquired from the lung bases to the pubic symphysis. Coronal and sagittal reformats were performed. For radiation dose reduction, the following was used: automated exposure control, adjustment of mA and/or kV according to patient size. COMPARISON: [facility], CT, CT ABDOMEN PELVIS W CON, 03/24/2021, 18:56. FINDINGS: Image quality: Diagnostic. Lower Chest: No significant findings. ABDOMEN: Liver: Hepatic steatosis. No suspicious solid lesions. Gallbladder: Redemonstration of layering densities within the gallbladder either representing sludge versus tiny gallstones. No gallbladder wall thickening. No pericholecystic fluid. Biliary ducts: No biliary dilation. Pancreas: No ductal dilation. Spleen: Size is within normal limits. Adrenal Glands: No focal adrenal nodules. Redemonstration of left adrenal thickening. Kidneys and Ureters: No hydronephrosis. No solid mass. No complex renal cystic lesion which requires follow up. Small bilateral renal hypodensities which are too small to accurately characterize but statistically represent simple renal cysts. Stomach and Bowel: Moderate circumferential wall thickening of the transverse and descending colon with associated inflammatory changes. No evidence for small bowel obstruction or associated inflammatory changes. Stomach appears unremarkable. The appendix is not definitively visualized. However, no secondary findings of acute inflammation are noted in the right lower quadrant. Peritoneum: No abnormal intraperitoneal fluid. No free air. Ventral Wall: No significant ventral hernia. Abdominal Nodes: No retroperitoneal or mesenteric adenopathy by size criteria. Vessels: Aorta and inferior vena cava are normal in size. Moderate atherosclerosis of the abdominal aorta and iliac vessels without evidence for aneurysmal dilatation. PELVIS: Pelvic Organs: Unremarkable. Bladder: Urinary bladder is moderately distended. No perivesicular inflammation. Pelvic Nodes: No enlarged lymph nodes. Miscellaneous: No inguinal hernias are seen. Bones: No aggressive osseous abnormality. No acute vertebral body compression fractures. Multilevel spondylitic changes throughout the imaged spine. No suspicious osseous lesions. IMPRESSION: Findings compatible with colitis of the transverse and descending colon either infectious or inflammatory in etiology. No evidence for perforation or abscess formation. Other chronic/nonacute findings as above. No significant discrepancy with the shift production associate radiology preliminary report. Dictated by: Ean Calderon M.D. on 05/07/2024 at 9:01 Approved by: Ean Calderon M.D. on 05/07/2024 at 9:13
[2024-05-07] MEDS: SODIUM CHLORIDE 0.9% 1,000 ML 1000 ML IV (03:26)
[2024-05-07 05:19] LABS: Bacteria Urine None Seen; Culture Indicated Urine Cult Not Indicated; RBC Urine 0-1/HPF (0-5/HPF); Squamous Epithelial Cell Urine None Seen (0-5/HPF); Urine Volume 10mL (spun); WBC Urine None Seen (0-5/HPF)
[2024-05-07] MEDS: HYDRALAZINE 20 MG/ML VIAL 5 MG IV (06:40)
--- NOTE | 2024-05-09 13:40 | CM.SWNOTE ---
ED ETHERNET NETWORK ARCHITECT follow up Note ETHERNET NETWORK ARCHITECT receives call from patient's son reporting that [facility] services have not started and report that [facility] that [facility] did not receive complete referral. ETHERNET NETWORK ARCHITECT [facility] and leaves VM. ETHERNET NETWORK ARCHITECT calls patient's PCP office who patient saw yesterday, it is reported that they can submit a new referral to [facility] today. RN reports that there is an issue with HH referrals from ED sometimes. Another identified issue is that the F2F was not scanned in through medical records. ETHERNET NETWORK ARCHITECT calls patient's son regarding technical errors and informs him of new referral sent over today by PCP office. Shayna Pereira, MAINTENANCE OF WAY SUPERVISOR
== END 2024-05-07 07:34 | disposition home or self-care (01) ==
PROVIDERS: Emergency Provider Emergency Medicine; PCP Family Medicine
DX: K52.9 Noninfective gastroenteritis and colitis, unspecified (principal); R33.8 Other retention of urine; R11.0 Nausea; Z79.899 Other long term (current) drug therapy
CPT/HCPCS: 36415; 74177; 80053; 81003; 81015; 83605; 83690; 85025; 96361; 96374; 99284; J0360; Q9967

== ENCOUNTER 2024-12-22 10:43 | Emergency (ER) | payer MEDICARE, SELFPAY ==
[2024-07-18 14:03] VITALS: BMI 21.0
[2024-12-22] VITALS (15 sets, daily range): BP systolic 117–188; BP diastolic 56–98; PULSE 73–92; RESP 15–23; TEMP 36.8; O2SAT 90–99; BMI 20.3
--- NOTE | 2024-12-22 10:57 | DI.RAD.S_ITS ---
PROCEDURE: XR CHEST 1V INDICATIONS: Shortness of breath TECHNIQUE: One view of the chest was acquired. COMPARISON: [facility], CR, XR CHEST 1V, 04/24/2024, 16:36. FINDINGS: Surgical changes and devices: Pacemaker Lungs and pleura: Lungs are clear. Emphysematous change. No pleural effusions or pneumothorax. Mediastinum: Mediastinal contours appear normal. Heart size is normal. Bones and chest wall: No suspicious bony lesions. Overlying soft tissues appear unremarkable. IMPRESSION: COPD. No evidence acute pulmonary process. Dictated by: Mike Sher M.D. on 12/22/2024 at 11:31 Approved by: Mike Sher M.D. on 12/22/2024 at 11:33
--- NOTE | 2024-12-22 10:57 | EKG_ITS ---
[address] [address] Test Date: 2024-12-22 Pat Name: Apple Juarez Department: Room: Gender: Female Safety Risk Lead: LUIS : 1940 Requested By: Order Number: [id number] Reading MD: Thanh Carpetner MD Measurements Intervals [place] Rate: 78 P: 78 ME: 160 QRS: 12 QRSD: 142 T: 86 QT: 436 QTc: 497 Interpretive Statements Normal sinus rhythm Left bundle branch block NO SIGNIFICANT CHANGE FROM PRIOR TRACING Electronically Signed On 12-22-2024 11:43:26 PDT by Thanh Carpenter MD
[2024-12-22] MEDS: ALBUTEROL/IPRATROPIUM 3 ML AMPUL INH (11:01)
[2024-12-22 11:05] LABS: Add Manual Diff / Slide Review NO; Basophils Absolute Auto 100 /uL (0-100); Basophils Percent Auto 1.5 % (0-2); Eosinophils Absolute Auto 300 /uL (0-450); Eosinophils Percent Auto 5.1 % (2-4); Hematocrit 42.7 % (36-46); Hemoglobin 14.1 g/dL (12.0-16.0); Lymphocytes Absolute Auto 1400 /uL (1100-4500); Lymphocytes Percent Auto 20.8 % (25-40); Mean Corpuscular Hemoglobin 28.9 PG (26-34); Mean Corpuscular Volume 87.7 fL (80-100); Monocytes Absolute Auto 900 /uL (0-900); Monocytes Percent Auto 13.3 % (3-14); Neutrophils Absolute Auto 3900 /uL (1500-7000); Neutrophils Percent Auto 59.3 % (50-75); Platelet Count 229 X10^3/uL (150-400); Red Blood Cell Count 4.87 X10^6/uL (4.0-5.2); Red Cell Distribution Width 16.9 % (11.6-14.8); White Blood Cell Count 6.5 X10^3/uL (4.5-11.0)
[2024-12-22 11:10] LABS: Alanine Aminotransferase 22 IU/L (<35); Albumin 4.1 g/dL (3.5-5.0); Albumin Globulin Ratio 1.2 (1.0-2.8); Alkaline Phosphatase 131 U/L (38-126); Aspartate Aminotransferase 34 IU/L (14-36); BUN Creatinine Ratio 23.1 (6-22); Bilirubin Total 0.5 mg/dL (0.2-1.3); Blood Urea Nitrogen 21 mg/dL (7-17); Carbon Dioxide 29 mmol/L (22-32); Chloride 104 mmol/L (98-107); Estimated Glomerular Filt Rate > 60 mL/min (>60); Globulin 3.4 g/dL (1.7-4.1); Glucose 102 mg/dL (80-110); HEMOLYSIS < 15 (0-50); Lactate (Lactic Acid) 1.2 mmol/L (0.7-2.1); Potassium 3.3 mmol/L (3.4-5.1); Sodium 139 mmol/L (137-145); Total Protein 7.5 g/dL (6.3-8.2)
[2024-12-22 11:22] LABS: NT-proBNP (BNP-Adult 18+) 3090 pg/mL (<450); Troponin I 0.039 ng/mL (0.01-0.034)
--- NOTE | 2024-12-22 12:36 | ED.SOB ---
HPI - SOB/Dyspnea General Chief Complaint: Shortness of Breath/Dyspnea Stated Complaint: SOB, COPD, Wheezing Time Seen by Provider: 12/22/24 12:35 Source: patient, EMS, RN notes reviewed and old records reviewed Mode of arrival: EMS Limitations: no limitations History of Present Illness HPI Narrative: 84-year-old female history of COPD, CHF, prior TIA, second-degree heart block, psoriasis I, pacemaker on Plavix daily. Patient presents with complaint of increased shortness of breath for the last several days she states could not really sleep overnight family states she told him that she felt very short of breath about 630 this morning. She was her albuterol inhaler but not with a spacer did not really help. Patient had a DuoNeb with EMS and additional here and has found it helpful. She denies any recent fevers or chills. She was has a little bit of a cough with some light yellow sputum family's noted some nasal congestion. She has not had any chest pain or pressure. She denies any shortness of breath currently. She does note a little bit of orthopnea for the past day or 2 and overnight. Denies any vomiting but has had some mild nausea. No new swelling of her extremities. She denies any medication changes. Reports an allergy to amoxicillin as well as several other antibiotics, niacin, tobramycin, latex and Chantix. Patient follows with Dr. Bingham is her primary care physician. 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 Related Data Previous Rx's Medication Instructions Recorded diclofenac sodium 1 % topical gel 2 g topical QID #100 grams 03/17/22 (Voltaren Arthritis Pain) contour plus #28 ea 05/26/22 bupropion HCl 150 mg tablet,12 hr 150 mg PO DAILY #90 tabs 05/15/24 sustained-release carvedilol 3.125 mg tablet See Rx Instructions .Route 05/15/24 .COMPLEX #180 tabs gabapentin 300 mg capsule 300 mg PO ONCE PM #90 caps 05/15/24 estradiol 0.01% (0.1 mg/gram) 0.25 appful vaginal BEDTIME #42.5 06/11/24 vaginal cream grams cyproheptadine 4 mg tablet 4 mg PO BID #180 tabs 08/11/24 clopidogrel 75 mg tablet 75 mg PO DAILY #90 tabs 08/28/24 atorvastatin 80 mg tablet 80 mg PO BEDTIME #90 tabs 10/02/24 furosemide 20 mg tablet (Lasix) 20 mg PO DAILY #3 tabs 12/22/24 prednisone 10 mg tablets in a dose See Rx Instructions PO .COMPLEX 12/22/24 pack #21 ea Allergies Allergy/AdvReac Type Severity Reaction Status Date / Time latex [LATEX] Allergy Mild Verified 08/05/24 15:03 amoxicillin [AMOXICILLIN] Allergy Unknown Verified 08/05/24 15:03 levofloxacin [LEVOFLOXACIN] Allergy Unknown Verified 08/05/24 15:03 niacin Allergy Unknown Verified 08/05/24 15:03 sulfamethoxazole Allergy Unknown Verified 08/05/24 15:03 [From Bactrim] tobramycin Allergy Unknown Verified 08/05/24 15:03 trimethoprim [From Bactrim] Allergy Unknown Verified 08/05/24 15:03 varenicline [From Chantix] Allergy Unknown Verified 08/05/24 15:03 Review of Systems Review of Systems ROS Unobtainable: All systems reviewed & are unremarkable except as noted in HPI and below Patient History Medical History Incomplete bladder emptying ARF (acute renal failure) Cat bite of forearm Carotid artery disease Mobitz type 2 second degree AV block CHF (congestive heart failure) Ganglion cyst COPD (chronic obstructive pulmonary disease) Hypertension Depression Vision disorder Psoriasis (~1999) Acne Fibromyalgia Chronic back pain Measles Chicken pox Herpes (~1999) Fibroids Endometriosis History of urinary incontinence Irritable bowel syndrome Diverticular disease Colon polyps Ischemic colitis Surgical History Anesthesia History of tonsillectomy History of appendectomy History of bilateral oophorectomies H/O: hysterectomy Pacemaker Family History Father Diabetes mellitus Mother Diabetes mellitus Brother Diabetes mellitus Sister Stroke Social History marital status: number of children: 3 household members: family and none lives independently: Yes alcohol intake: current substance use type: does not use Smoking Status: Current every day smoker tobacco type: cigarettes alcohol intake frequency: holidays/special occasions only Exam Narrative Exam Narrative: GENERAL: Alert and oriented x three, thin elderly female in mild distress HEENT: Head normocephalic, atraumatic, EOMI, pupils reactive, face symmetric, moist mucous membranes NECK: Supple, full range of motion CARDIOVASCULAR: Regular rate and rhythm without murmurs, rubs or gallops. RESPIRATORY: Breath sounds equal bilaterally, mild wheeze, no rales or rhonchi. No tachypnea accessory muscle use. Speaks in full sentences. ABDOMEN: Soft, nontender. Normoactive bowel sounds all 4 quadrants. No guarding or rebound, rigidity, no mass : No CVA tenderness EXTREMITIES: Normal range of motion, no clubbing or edema. Neurovascularly intact NEUROLOGICAL: Cranial nerves II through XII grossly intact. Moving all extremities SKIN: Warm, dry, no petechiae, no rashes or lesions. Initial Vital Signs Initial Vital Signs: Vital Signs Temperature 98.2 F 12/22/24 10:53 Pulse Rate 79 12/22/24 10:53 Respiratory Rate 15 12/22/24 10:53 Blood Pressure 188/83 H 12/22/24 10:53 Pulse Oximetry 92 12/22/24 10:53 Oxygen Delivery Method Room Air 12/22/24 10:53 Course Orders Ordered: Discontinued Medications Albuterol (Albuterol 2.5 Mg/3 Ml Neb (Adult)) 2.5 mg INH NOW ONE Stop: 12/22/24 12:53 Last Admin: 12/22/24 12:59 Dose: 2.5 mg Documented By: MARIAH Albuterol/Ipratropium (Albuterol/Ipratropium 3 Ml Ampul) 3 ml INH NOW ONE Stop: 12/22/24 10:59 Last Admin: 12/22/24 11:01 Dose: 3 ml Documented By: MARIAH Furosemide (Furosemide 40 Mg/4 Ml Vial) 40 mg IV NOW ONE Stop: 12/22/24 12:51 Last Admin: 12/22/24 13:00 Dose: 40 mg Documented By: FLY Methylprednisolone (Methylprednisolone 125 Mg/2 Ml Vial) 125 mg IV NOW ONE Stop: 12/22/24 12:51 Last Admin: 12/22/24 13:00 Dose: 125 mg Documented By: FLY Vital Signs Vital signs: Vital Signs - 8 hr 12/22/24 10:53 12/22/24 11:00 12/22/24 11:00 Temperature 98.2 F Pulse Rate 79 79 Respiratory Rate 15 15 Blood Pressure 188/83 H 188/83 H Pulse Oximetry 92 92 Oxygen Delivery Method Room Air Oxygen Flow Rate Fraction of Inspired Oxygen 12/22/24 11:02 12/22/24 11:15 12/22/24 11:15 Temperature Pulse Rate 75 77 Respiratory Rate 20 Blood Pressure 147/68 H Pulse Oximetry 92 99 Oxygen Delivery Method Room Air Oxygen Flow Rate 0 Fraction of Inspired Oxygen 21 12/22/24 11:30 12/22/24 11:30 12/22/24 11:45 Temperature Pulse Rate 80 73 Respiratory Rate 16 17 Blood Pressure 168/81 H Pulse Oximetry 94 92 Oxygen Delivery Method Oxygen Flow Rate Fraction of Inspired Oxygen 12/22/24 11:45 12/22/24 12:00 12/22/24 12:00 Temperature Pulse Rate 74 Respiratory Rate 16 Blood Pressure 154/70 H 136/59 L Pulse Oximetry 90 L Oxygen Delivery Method Oxygen Flow Rate Fraction of Inspired Oxygen 12/22/24 12:15 12/22/24 12:15 12/22/24 12:30 Temperature Pulse Rate 74 Respiratory Rate 17 Blood Pressure 117/56 L 147/98 H Pulse Oximetry 90 L Oxygen Delivery Method Oxygen Flow Rate Fraction of Inspired Oxygen 12/22/24 12:30 12/22/24 12:45 12/22/24 12:45 Temperature Pulse Rate 79 78 Respiratory Rate 20 23 Blood Pressure 178/81 H Pulse Oximetry 92 92 Oxygen Delivery Method Oxygen Flow Rate Fraction of Inspired Oxygen 12/22/24 12:59 12/22/24 13:00 12/22/24 13:00 Temperature Pulse Rate 78 77 Respiratory Rate 20 20 Blood Pressure 182/85 H Pulse Oximetry 94 93 Oxygen Delivery Method Room Air Oxygen Flow Rate 0 Fraction of Inspired Oxygen 21 12/22/24 13:07 12/22/24 13:07 12/22/24 13:15 Temperature Pulse Rate 77 79 Respiratory Rate 17 18 Blood Pressure 146/70 H Pulse Oximetry 99 95 Oxygen Delivery Method Oxygen Flow Rate Fraction of Inspired Oxygen 12/22/24 13:15 12/22/24 13:29 Temperature Pulse Rate 92 H Respiratory Rate 20 Blood Pressure 158/74 H Pulse Oximetry 94 Oxygen Delivery Method Oxygen Flow Rate Fraction of Inspired Oxygen MDM - SOB/Dyspnea Lab Data 12/22/24 10:40 12/22/24 10:40 Labs: Lab Results 12/22/24 12/22/24 Range/Units 10:40 12:37 WBC 6.5 (4.5-11.0) X10^3/uL RBC 4.87 (4.0-5.2) X10^6/uL Hgb 14.1 (12.0-16.0) g/dL Hct 42.7 (36-46) % MCV 87.7 (80-100) fL MCH 28.9 (26-34) PG MCHC 33.0 (30-36) % RDW 16.9 H (11.6-14.8) % Plt Count 229 (150-400) X10^3/uL Neut % (Auto) 59.3 (50-75) % Lymph % (Auto) 20.8 L (25-40) % [place] % (Auto) 13.3 (3-14) % Eos % (Auto) 5.1 H (2-4) % Baso % (Auto) 1.5 (0-2) % Neut # (Auto) 3900 (2809-1044) /uL Lymph # (Auto) 1400 (8164-0025) /uL [place] # (Auto) 900 (0-900) /uL Eos # (Auto) 300 (0-450) /uL Baso # (Auto) 100 (0-100) /uL PT 11.0 (9.4-12.5) SECONDS INR 1.0 (0.9-1.3) Sodium 139 (137-145) mmol/L Potassium 3.3 L (3.4-5.1) mmol/L Chloride 104 (98-107) mmol/L Carbon Dioxide 29 (22-32) mmol/L BUN 21 H (7-17) mg/dL Creatinine 0.91 (0.52-1.04) mg/dL Estimated GFR > 60 (>60) mL/min BUN/Creatinine Ratio 23.1 H (6-22) Glucose 102 (80-110) mg/dL Lactate 1.2 (0.7-2.1) mmol/L Calcium 9.0 (8.4-10.2) mg/dL Total Bilirubin 0.5 (0.2-1.3) mg/dL AST 34 (14-36) IU/L ALT 22 (<35) IU/L Alkaline Phosphatase 131 H (38-126) U/L Troponin I 0.039 H 0.034 (0.01-0.034) ng/mL NT-Pro-B Natriuret Pep 3090 H (<450) pg/mL Total Protein 7.5 (6.3-8.2) g/dL Albumin 4.1 (3.5-5.0) g/dL Globulin 3.4 (1.7-4.1) g/dL Albumin/Globulin Ratio 1.2 (1.0-2.8) ECG Data Attestation: I personally reviewed and interpreted this ECG as follows: Prior ECG tracings: available for review Interpretation: Sinus rhythm, left bundle-branch block, rate of 78, ND 160 QRS of 142 QTC of 497, patient was prior from 04/26/2023 nonspecific change has a left bundle-branch block present Repeat EKG shows sinus rhythm left bundle-branch block rate of 79 ND 158 QRS of 146 QTC of 481, nonspecific change. MDM Narrative Medical decision making narrative: EKG shows sinus rhythm, left bundle-branch block Labs show normal white count, hemoglobin and platelets, INR 1, potassium 3.3, sodium is 139 chloride 104 CO2 is 29 BUN 21 creatinine 0.91, glucose is 102 lactate 1.2, alk-phos is 131 but normal bilirubin, AST and ALT. Troponin 0.039 with a BNP of 3090. Repeat troponin Chest x-ray shows emphysematous change lungs are otherwise clear no pleural effusions or pneumothorax noted no evidence of acute pulmonary process. Duoneb x2 patient has minimal wheeze on repeat received additional albuterol. Solu-Medrol 125 mg Lasix 40mg IV 82-year-old female history of CHF, hypertension, dyslipidemia and Plavix and COPD presents with what sounds like a COPD exacerbation responded well to DuoNebs. Was given additional DuoNeb and albuterol here in the department as well as Solu-Medrol. Patient does not appear to be fluid overloaded physically on exam but does note some orthopnea and BNP is elevated compared to prior from April of 2024. Troponin was indeterminate. Patient has not had any dynamic changes starting to EKGs she was not had any chest pain or pressure. Suspect there maybe a component of demand ischemia repeat troponin has decreased at 0.034 Discussed with the patient she would like to return home, Patient has not been hypoxic here in the department she is feeling improved. We will discharge patient with prednisone, she was also provided a spacer with her albuterol. She had recently lost with the last 1 and has not been using 1. Was given a dose of Lasix here in the department. Patient ambulated in the department without dropping below 94%. She states she feels little bit weak but otherwise feels well and request return home. Discussed return precautions and need for short term follow up for rechecked. Discharge Plan Departure Patient Disposition: Home Clinical Impression: Acute exacerbation of chronic obstructive pulmonary disease Instructions: DI for Chronic Obstructive Pulmonary Disease Activity Restrictions/Additional Instructions: Follow up with your physician for recheck. You appear to be having a exacerbation of your COPD but there maybe a small component of heart failure or fluid overloaded as well. Prescription for steroids as well as a diuretic was sent to your pharmacy. Your next doses we will be tomorrow. Take steroids until completed. Use the spacer with your inhaler you can do 4-6 puffs as needed every 4 hours. [facility] [place] Please return for fevers, new or worsening chest pain or short increasing shortness of breath, lightheadedness or passing out, new swelling of your extremities or other new or concerning changes. Prescriptions: New prednisone 10 mg tablets,dose pack See Rx Instructions .ROUTE .COMPLEX Qty: 21 0RF Rx Instructions: 6 tabs p.o. x1 day, then 5 tabs p.o. x1 day, then 4 tablets p.o. x1 day, then 3 tabs p.o. x1 day, then 2 tabs p.o. x1 day, then 1 tab p.o. x1 day furosemide [Lasix] 20 mg tablet 20 mg PO DAILY Qty: 3 0RF No Action carvedilol 3.125 mg tablet See Rx Instructions .ROUTE .COMPLEX Qty: 180 2RF Dose Instruction: TAKE ONE TABLET BY MOUTH TWICE DAILY WITH FOOD Rx Instructions: TAKE ONE TABLET BY MOUTH TWICE DAILY WITH FOOD bupropion HCl 150 mg tablet sustained-release 12 hr 150 mg PO DAILY Qty: 90 1RF gabapentin 300 mg capsule 300 mg PO ONCE PM Qty: 90 1RF cyproheptadine 4 mg tablet 4 mg PO BID Qty: 180 2RF clopidogrel 75 mg tablet 75 mg PO DAILY Qty: 90 3RF atorvastatin 80 mg tablet 80 mg PO BEDTIME Qty: 90 3RF diclofenac sodium [Voltaren Arthritis Pain] 1 % gel 2 g topical QID Qty: 100 5RF Rx Instructions: apply to single elbow, wrist or hand; for hand includes palm/fingers/back of hand estradiol 0.01 % (0.1 mg/gram) cream 0.25 appful vaginal BEDTIME Qty: 42.5 3RF Rx Instructions: Apply small amount with finger to vaginal opening and labia at bedtime for 2 weeks, then twice weekly thereafter (DME) contour plus See Rx Instructions .Route .MEDSUPPLY Qty: 28 12RF Rx Instructions: incontinence ultimate bladder pads. medline Referrals: Mir Bingham, [Primary Care Provider] - Stand Alone Forms: Patient Portal/API/Survey
--- NOTE | 2024-12-22 12:38 | EKG_ITS ---
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
[2024-12-22] MEDS: ALBUTEROL 2.5 MG/3 ML NEB (ADULT) INH (12:59)
[2024-12-22] MEDS: methylPREDNISolone 125 MG/2 ML VIAL IV (13:00)
[2024-12-22] MEDS: FUROSEMIDE 40 MG/4 ML VIAL IV (13:00)
[2024-12-22 13:12] LABS: Troponin I 0.034 ng/mL (0.01-0.034)
== END 2024-12-22 13:55 | disposition home or self-care (01) ==
PROVIDERS: Emergency Provider Emergency Medicine; PCP Family Medicine
DX: J44.1 Chronic obstructive pulmonary disease with (acute) exacerbation (principal); I44.7 Left bundle-branch block, unspecified; I50.9 Heart failure, unspecified; I11.0 Hypertensive heart disease with heart failure; F17.210 Nicotine dependence, cigarettes, uncomplicated
CPT/HCPCS: 36415; 71045; 80053; 83605; 83880; 84484; 85025; 85610; 93005; 93010; 94640; 96374; 96375; 99284; J1938; J2919; J7613

== ENCOUNTER 2024-12-27 08:11 | Emergency (ER) | payer MEDICARE, SELFPAY ==
[2024-07-18 14:03] VITALS: BMI 21.0
[2024-12-27] VITALS (9 sets, daily range): BP systolic 157–208; BP diastolic 82–94; PULSE 63–79; RESP 14–21; TEMP 36.6; O2SAT 93–96
--- NOTE | 2024-12-27 08:16 | DI.RAD.S_ITS ---
PROCEDURE: XR CHEST 1V INDICATIONS: Dyspnea TECHNIQUE: One view of the chest was acquired. COMPARISON: [facility], CR, XR CHEST 1 VIEW, 07/05/2024, 16:15. [facility], CR, XR CHEST 2 VIEWS, 07/04/2024, 21:43. [facility], CR, XR CHEST 1V, 12/22/2024, 11:00. FINDINGS: Surgical changes and devices: A pacer device is seen. The leads are seen in stable positions. Lungs and pleura: Lungs are clear. No pleural effusions or pneumothorax. Mediastinum: The cardiac contours are within normal limits. The aorta demonstrates calcification and tortuosity. Bones and chest wall: No suspicious bony lesions. Age-appropriate bony degenerative changes are seen. Overlying soft tissues appear unremarkable. IMPRESSION: Clear lungs. No acute cardiopulmonary abnormality is seen. Postoperative and degenerative changes are seen. Dictated by: Armand Rosenberg M.D. on 12/27/2024 at 8:08 Approved by: Armand Rosenberg M.D. on 12/27/2024 at 8:09
--- NOTE | 2024-12-27 08:16 | EKG_ITS ---
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
--- NOTE | 2024-12-27 08:18 | ED.SOB ---
HPI - SOB/Dyspnea General Chief Complaint: Shortness of Breath/Dyspnea Stated Complaint: SOB Time Seen by Provider: 12/27/24 10:08 History of Present Illness HPI Narrative: Patient here for shortness of breath. Patient seen here 5 days ago for the same. Sent home. Please see notes below from her visit. Denies any chest pain nor limb swelling. Patient does continue to smoke. Patient is not on home oxygen. Home breathing treatments have not helped. She does have a nebulizer. Chief Complaint: Shortness of Breath/Dyspnea Stated Complaint: SOB, COPD, Wheezing Time Seen by Provider: 12/22/24 12:35 Source: patient, EMS, RN notes reviewed and old records reviewed Mode of arrival: EMS Limitations: no limitations History of Present Illness HPI Narrative: 84-year-old female history of COPD, CHF, prior TIA, second-degree heart block, psoriasis I, pacemaker on Plavix daily. Patient presents with complaint of increased shortness of breath for the last several days she states could not really sleep overnight family states she told him that she felt very short of breath about 630 this morning. She was her albuterol inhaler but not with a spacer did not really help. Patient had a DuoNeb with EMS and additional here and has found it helpful. She denies any recent fevers or chills. She was has a little bit of a cough with some light yellow sputum family's noted some nasal congestion. She has not had any chest pain or pressure. She denies any shortness of breath currently. She does note a little bit of orthopnea for the past day or 2 and overnight. Denies any vomiting but has had some mild nausea. No new swelling of her extremities. She denies any medication changes. Reports an allergy to amoxicillin as well as several other antibiotics, niacin, tobramycin, latex and Chantix. Patient follows with Dr. Bingham is her primary care physician. 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 Related Data Previous Rx's Medication Instructions Recorded diclofenac sodium 1 % topical gel 2 g topical QID #100 grams 03/17/22 (Voltaren Arthritis Pain) contour plus #28 ea 05/26/22 bupropion HCl 150 mg tablet,12 hr 150 mg PO DAILY #90 tabs 05/15/24 sustained-release carvedilol 3.125 mg tablet See Rx Instructions .Route 05/15/24 .COMPLEX #180 tabs gabapentin 300 mg capsule 300 mg PO ONCE PM #90 caps 05/15/24 estradiol 0.01% (0.1 mg/gram) 0.25 appful vaginal BEDTIME #42.5 06/11/24 vaginal cream grams cyproheptadine 4 mg tablet 4 mg PO BID #180 tabs 08/11/24 clopidogrel 75 mg tablet 75 mg PO DAILY #90 tabs 08/28/24 atorvastatin 80 mg tablet 80 mg PO BEDTIME #90 tabs 10/02/24 furosemide 20 mg tablet (Lasix) 20 mg PO DAILY #3 tabs 12/22/24 prednisone 10 mg tablets in a dose See Rx Instructions PO .COMPLEX 12/22/24 pack #21 ea albuterol sulfate 2.5 mg/3 mL 2.5 mg (3 mL) inhalation Q4-6H PRN 12/27/24 (0.083 %) solution for nebulization shortness of breath or wheezing #75 mL benzonatate 100 mg capsule 100 mg PO TID PRN cough #20 caps 12/27/24 methylprednisolone 4 mg tablets in See Rx Instructions PO .COMPLEX 12/27/24 a dose pack (Medrol (Jermaine)) #21 ea Allergies Allergy/AdvReac Type Severity Reaction Status Date / Time latex [LATEX] Allergy Mild Verified 12/27/24 08:29 amoxicillin [AMOXICILLIN] Allergy Unknown Verified 12/27/24 08:29 levofloxacin [LEVOFLOXACIN] Allergy Unknown Verified 12/27/24 08:29 niacin Allergy Unknown Verified 12/27/24 08:29 sulfamethoxazole Allergy Unknown Verified 12/27/24 08:29 [From Bactrim] tobramycin Allergy Unknown Verified 12/27/24 08:29 trimethoprim [From Bactrim] Allergy Unknown Verified 12/27/24 08:29 varenicline [From Chantix] Allergy Unknown Verified 12/27/24 08:29 Review of Systems Review of Systems Narrative: GENERAL: Negative chills, fatigue, malaise, fever, sweats. HEENT: Negative sinus pain, ear pain, sore throat RESPIRATORY: Positive dyspnea, cough CARDIOVASCULAR: Negative chest pain, palpitations GASTROINTESTINAL: Negative vomiting, nausea, abdominal pain : Negative dysuria, frequency, hematuria MUSCULOSKELETAL: Negative muscle or bony pain SKIN: Negative rash, skin lesions NEUROLOGIC: Negative weakness, numbness ROS Unobtainable: All systems reviewed & are unremarkable except as noted in HPI and below Patient History Medical History Incomplete bladder emptying ARF (acute renal failure) Cat bite of forearm Carotid artery disease Mobitz type 2 second degree AV block CHF (congestive heart failure) Ganglion cyst COPD (chronic obstructive pulmonary disease) Hypertension Depression Vision disorder Psoriasis (~1999) Acne Fibromyalgia Chronic back pain Measles Chicken pox Herpes (~1999) Fibroids Endometriosis History of urinary incontinence Irritable bowel syndrome Diverticular disease Colon polyps Ischemic colitis Surgical History Anesthesia History of tonsillectomy History of appendectomy History of bilateral oophorectomies H/O: hysterectomy Pacemaker Family History Father Diabetes mellitus Mother Diabetes mellitus Brother Diabetes mellitus Sister Stroke Social History marital status: number of children: 3 household members: family and none lives independently: Yes Smoking Status: Current every day smoker alcohol intake: current substance use type: does not use tobacco type: cigarettes alcohol intake frequency: holidays/special occasions only Exam Narrative Exam Narrative: GENERAL: in no distress, not toxic not dyspneic HEAD: Normocephalic. EYES: Pupils equal round ENT: Mucous membranes moist. NECK: Trachea midline. CARDIOVASCULAR: Regular rate and rhythm RESPIRATORY: Patient is speaking near full sentences comfortably. However diminished lung sounds bilaterally. No wheezing rhonchi rales. GASTROINTESTINAL: Abdomen soft, non-tender EXTREMITIES: No gross deformities., no leg edema BACK: No flank tenderness. NEURO: AOx4. Clear speech SKIN: Warm and dry PSYCH: Not anxious, is cooperative Initial Vital Signs Initial Vital Signs: Vital Signs Blood Pressure 157/90 H 12/27/24 08:13 Course Orders Ordered: ED Orders 12/27/24 08:16 XR chest 1V Stat EKG-12 Lead Stat 12/27/24 08:45 Complete Blood Count AUTO DIFF Stat Comprehensive Metabolic Panel Stat NT-proBNP (BNP-Adult 18+) Stat PTT Partial Thromboplastin Salazar Stat Prothrombin Time INR Stat Respiratory Panel (Film Array) Stat Troponin & CK Cardiac Panel Stat Discontinued Medications Albuterol/Ipratropium (Albuterol/Ipratropium 3 Ml Ampul) 3 ml INH NOW ONE Stop: 12/27/24 08:16 Last Admin: 12/27/24 09:01 Dose: 3 ml Documented By: JOSE Methylprednisolone (Methylprednisolone 125 Mg/2 Ml Vial) 125 mg IV NOW ONE Stop: 12/27/24 08:17 Last Admin: 12/27/24 08:51 Dose: 125 mg Documented By: JOSE Vital Signs Vital signs: Vital Signs - 8 hr 12/27/24 08:13 12/27/24 08:14 12/27/24 08:22 Temperature 98 F Pulse Rate 75 67 Respiratory Rate 17 Blood Pressure 157/90 H 157/90 H Pulse Oximetry 94 94 Oxygen Delivery Method Room Air 12/27/24 08:30 12/27/24 08:30 12/27/24 09:00 Temperature Pulse Rate 64 63 Respiratory Rate 14 16 Blood Pressure 177/82 H Pulse Oximetry 93 95 Oxygen Delivery Method Room Air Room Air 12/27/24 09:00 12/27/24 09:30 12/27/24 09:30 Temperature Pulse Rate 63 Respiratory Rate 21 Blood Pressure 208/93 H 206/94 H Pulse Oximetry 96 Oxygen Delivery Method Room Air 12/27/24 09:47 12/27/24 10:02 12/27/24 10:30 Temperature Pulse Rate 79 65 66 Respiratory Rate 18 Blood Pressure Pulse Oximetry 96 96 94 Oxygen Delivery Method Room Air 12/27/24 10:30 Temperature Pulse Rate Respiratory Rate Blood Pressure 198/88 H Pulse Oximetry Oxygen Delivery Method MDM - SOB/Dyspnea Lab Data 12/27/24 08:45 12/27/24 08:45 Labs: Lab Results 12/27/24 Range/Units 08:45 WBC 11.3 H (4.5-11.0) X10^3/uL RBC 4.26 (4.0-5.2) X10^6/uL Hgb 12.5 (12.0-16.0) g/dL Hct 37.2 (36-46) % MCV 87.5 (80-100) fL MCH 29.5 (26-34) PG MCHC 33.7 (30-36) % RDW 16.6 H (11.6-14.8) % Plt Count 256 (150-400) X10^3/uL Neut % (Auto) 69.1 (50-75) % Lymph % (Auto) 20.6 L (25-40) % [place] % (Auto) 9.0 (3-14) % Eos % (Auto) 1.0 L (2-4) % Baso % (Auto) 0.3 (0-2) % Neut # (Auto) 7800 H (1589-4729) /uL Lymph # (Auto) 2300 (9368-4430) /uL [place] # (Auto) 1000 H (0-900) /uL Eos # (Auto) 100 (0-450) /uL Baso # (Auto) 0 (0-100) /uL PT 10.8 (9.4-12.5) SECONDS INR 1.0 (0.9-1.3) APTT 26 (25.1-36.5) SECONDS Sodium 141 (137-145) mmol/L Potassium 3.0 L (3.4-5.1) mmol/L Chloride 110 H (98-107) mmol/L Carbon Dioxide 28 (22-32) mmol/L BUN 34 H (7-17) mg/dL Creatinine 0.90 (0.52-1.04) mg/dL Estimated GFR > 60 (>60) mL/min BUN/Creatinine Ratio 37.8 H (6-22) Glucose 78 L (80-110) mg/dL Calcium 8.0 L (8.4-10.2) mg/dL Total Bilirubin 0.4 (0.2-1.3) mg/dL AST 36 (14-36) IU/L ALT 27 (<35) IU/L Alkaline Phosphatase 85 (38-126) U/L Total Creatine Kinase 37 (30-135) U/L Troponin I 0.016 (0.01-0.034) ng/mL NT-Pro-B Natriuret Pep 1490 H (<450) pg/mL Total Protein 6.0 L (6.3-8.2) g/dL Albumin 3.3 L (3.5-5.0) g/dL Globulin 2.7 (1.7-4.1) g/dL Albumin/Globulin Ratio 1.2 (1.0-2.8) Chlamy pneumoniae PCR Not detected (Not Detect) Adenovirus (PCR) Not detected (Not Detect) B. pertussis DNA (PCR) Not detected (Not Detect) B.parapertussis DNA PCR Not detected (Not Detecte) Coronavirus OC43 (PCR) Not detected (Not Detect) Coronavirus HKU1 (PCR) Not detected (Not Detect) Coronavirus 229E (PCR) Not detected (Not Detect) SARS-CoV-2 (PCR) Not detected (Not Detecte) Coronavirus NL63 (PCR) Not detected (Not Detect) Human Metapneumovir PCR Not detected (Not Detect) Influenza Type A (PCR) Not detected (Not Detect) Influenza Type B (PCR) Not detected (Not Detect) M. pneumoniae (PCR) Not detected (Not Detect) Parainfluenza 1 (PCR) Not detected (Not Detect) Parainfluenza 2 (PCR) Not detected (Not Detect) Parainfluenza 3 (PCR) Not detected (Not Detect) Parainfluenza 4 (PCR) Not detected (Not Detect) RSV (PCR) Not detected (Not Detect) Entero/Rhino (PCR) Detected H (Not Detect) Imaging Data Chest x-ray: Radiologist's Impression: [place] [address] XRay Report Signed Patient: Apple Juarez MR#: [id number] : 1940 Acct:[id number] Age/Sex: 84 / F Date of Service: 12/27/24 Loc: ED Accession Number: [id number] Procedure: XR chest 1V Ordering Provider: Damon Dash MD PROCEDURE: XR CHEST 1V INDICATIONS: Dyspnea TECHNIQUE: One view of the chest was acquired. COMPARISON: [facility], CR, XR CHEST 1 VIEW, 07/05/2024, 16:15. [facility], CR, XR CHEST 2 VIEWS, 07/04/2024, 21:43. [facility], CR, XR CHEST 1V, 12/22/2024, 11:00. FINDINGS: Surgical changes and devices: A pacer device is seen. The leads are seen in stable positions. Lungs and pleura: Lungs are clear. No pleural effusions or pneumothorax. Mediastinum: The cardiac contours are within normal limits. The aorta demonstrates calcification and tortuosity. Bones and chest wall: No suspicious bony lesions. Age-appropriate bony degenerative changes are seen. Overlying soft tissues appear unremarkable. IMPRESSION: Clear lungs. No acute cardiopulmonary abnormality is seen. Postoperative and degenerative changes are seen. Dictated by: Armand Rosenberg M.D. on 12/27/2024 at 8:08 Approved by: Armand Rosenberg M.D. on 12/27/2024 at 8:09 [facility] Narrative Medical decision making narrative: Patient here for shortness of breath. Patient seen here 5 days ago for the same. Sent home. Please see notes below from her visit. Denies any chest pain nor limb swelling. Patient does continue to smoke. Patient is not on home oxygen. Home breathing treatments have not helped. She does have a nebulizer. After history and exam, CBC CMP EKG chest x-ray respiratory panel Solu-Medrol DuoNeb, likely admit [facility] Medical records reviewed: ER visits here 5 days ago. Differential considered: Includes but not limited to COPD bronchitis pneumonia COVID influenza rhino virus influenza Lab Test results independently reviewed as above. Pertinent findings: Positive rhino virus, WBC 11.3 sodium 141 potassium 3.0 BUN 34 creatinine 0.9 GFR greater than 60 troponin 0.016 BNP 1490, nonspecific. Independently reviewed EKG left bundle-branch block normal sinus rhythm rate 67 Imaging studies independently reviewed: Chest x-ray no acute finding Consultations: Re-evaluations: 10:00 a.m.. Patient doing much better. Able to lay flat as she was not able to do this before. Had Solu-Medrol and breathing treatments. Up and walking in hallway room air 96%, she is walking at baseline with a walker and distance is at baseline. Not dyspneic. No hypoxia. Reviewed results with patient and son. Son at bedside. Encouraged to stop smoking. Prescriptions provided. Return precautions reviewed. She desires discharge home. No antibiotics indicated at this time. This is viral infection. She does understand. Discussion: Appropriate for discharge home exam is reassuring. Patient feeling much better. Not requiring supplemental oxygen. Return precautions reviewed. Prescriptions provided. She has primary care, Dr. Bingham to follow up with next week. She desires discharge home. Encouraged her to stop smoking. Diagnosis: Rhino virus bronchitis COPD exacerbation Discharge Plan Departure Patient Disposition: Home Clinical Impression: Acute exacerbation of chronic obstructive pulmonary disease, Acute bronchitis due to Rhinovirus Instructions: DI for Chronic Obstructive Pulmonary Disease, DI for Acute Bronchitis, DI for Viral Upper Respiratory Infection -- Adult Activity Restrictions/Additional Instructions: You have tested positive for rhino virus causing bronchitis. This has triggered your COPD. Please continue home COPD medications and breathing treatments. Prescription for a nebulizer has been provided for you with albuterol refills. Please see your family doctor next week for re-evaluation. Continue steroid pack tomorrow. Cough medication has been provided for you as well. Return if worse if any questions or concerns. Paper prescription has been provided for you for your nebulizer unit.. Please stop smoking. This will decrease your COPD episodes. Return if worse if any questions or concerns. Prescriptions: New benzonatate 100 mg capsule 100 mg PO TID PRN (Reason: cough) Qty: 20 0RF albuterol sulfate 2.5 mg /3 mL (0.083 %) solution for nebulization 2.5 mg inhalation Q4-6H PRN (Reason: shortness of breath or wheezing) Qty: 75 0RF methylprednisolone [Medrol (Jermaine)] 4 mg tablets,dose pack See Rx Instructions .ROUTE .COMPLEX Qty: 21 0RF Rx Instructions: orally per package directions No Action carvedilol 3.125 mg tablet See Rx Instructions .ROUTE .COMPLEX Qty: 180 2RF Dose Instruction: TAKE ONE TABLET BY MOUTH TWICE DAILY WITH FOOD Rx Instructions: TAKE ONE TABLET BY MOUTH TWICE DAILY WITH FOOD bupropion HCl 150 mg tablet sustained-release 12 hr 150 mg PO DAILY Qty: 90 1RF gabapentin 300 mg capsule 300 mg PO ONCE PM Qty: 90 1RF cyproheptadine 4 mg tablet 4 mg PO BID Qty: 180 2RF clopidogrel 75 mg tablet 75 mg PO DAILY Qty: 90 3RF atorvastatin 80 mg tablet 80 mg PO BEDTIME Qty: 90 3RF diclofenac sodium [Voltaren Arthritis Pain] 1 % gel 2 g topical QID Qty: 100 5RF Rx Instructions: apply to single elbow, wrist or hand; for hand includes palm/fingers/back of hand estradiol 0.01 % (0.1 mg/gram) cream 0.25 appful vaginal BEDTIME Qty: 42.5 3RF Rx Instructions: Apply small amount with finger to vaginal opening and labia at bedtime for 2 weeks, then twice weekly thereafter (DME) contour plus See Rx Instructions .Route .MEDSUPPLY Qty: 28 12RF Rx Instructions: incontinence ultimate bladder pads. medline prednisone 10 mg tablets,dose pack See Rx Instructions .ROUTE .COMPLEX Qty: 21 0RF Rx Instructions: 6 tabs p.o. x1 day, then 5 tabs p.o. x1 day, then 4 tablets p.o. x1 day, then 3 tabs p.o. x1 day, then 2 tabs p.o. x1 day, then 1 tab p.o. x1 day furosemide [Lasix] 20 mg tablet 20 mg PO DAILY Qty: 3 0RF Referrals: Mir Bingham DO [Primary Care Provider] - Stand Alone Forms: Patient Portal/API/Survey
[2024-12-27] MEDS: methylPREDNISolone 125 MG/2 ML VIAL IV (08:51)
[2024-12-27] MEDS: ALBUTEROL/IPRATROPIUM 3 ML AMPUL INH (09:01)
[2024-12-27 09:04] LABS: Add Manual Diff / Slide Review NO; Basophils Absolute Auto 0 /uL (0-100); Basophils Percent Auto 0.3 % (0-2); Eosinophils Absolute Auto 100 /uL (0-450); Hematocrit 37.2 % (36-46); Hemoglobin 12.5 g/dL (12.0-16.0); Lymphocytes Absolute Auto 2300 /uL (1100-4500); Lymphocytes Percent Auto 20.6 % (25-40); Mean Corpuscular HGB Conc 33.7 % (30-36); Mean Corpuscular Hemoglobin 29.5 PG (26-34); Mean Corpuscular Volume 87.5 fL (80-100); Monocytes Absolute Auto 1000 /uL (0-900); Neutrophils Absolute Auto 7800 /uL (1500-7000); Neutrophils Percent Auto 69.1 % (50-75); Platelet Count 256 X10^3/uL (150-400); Red Blood Cell Count 4.26 X10^6/uL (4.0-5.2); Red Cell Distribution Width 16.6 % (11.6-14.8); White Blood Cell Count 11.3 X10^3/uL (4.5-11.0)
[2024-12-27 09:06] LABS: Prothrombin Time 10.8 SECONDS (9.4-12.5)
[2024-12-27 09:08] LABS: PTT Partial Thromboplastin Tim 26 SECONDS (25.1-36.5)
[2024-12-27 09:10] LABS: Alanine Aminotransferase 27 IU/L (<35); Albumin 3.3 g/dL (3.5-5.0); Albumin Globulin Ratio 1.2 (1.0-2.8); Alkaline Phosphatase 85 U/L (38-126); Aspartate Aminotransferase 36 IU/L (14-36); BUN Creatinine Ratio 37.8 (6-22); Bilirubin Total 0.4 mg/dL (0.2-1.3); Blood Urea Nitrogen 34 mg/dL (7-17); Carbon Dioxide 28 mmol/L (22-32); Chloride 110 mmol/L (98-107); Creatine Kinase 37 U/L (30-135); Estimated Glomerular Filt Rate > 60 mL/min (>60); Globulin 2.7 g/dL (1.7-4.1); Glucose 78 mg/dL (80-110); HEMOLYSIS < 15 (0-50); Sodium 141 mmol/L (137-145)
[2024-12-27 09:18] LABS: NT-proBNP (BNP-Adult 18+) 1490 pg/mL (<450)
[2024-12-27 09:22] LABS: Troponin I 0.016 ng/mL (0.01-0.034)
[2024-12-27 09:44] LABS: Adenovirus Not Detected (Not Detect); B. parapertussis Not Detected (Not Detecte); Bordetella pertussis Not Detected (Not Detect); Chlamydophila pneumoniae Not Detected (Not Detect); Coronavirus 229E Not Detected (Not Detect); Coronavirus HKU1 Not Detected (Not Detect); Coronavirus NL 63 Not Detected (Not Detect); Coronavirus OC43 Not Detected (Not Detect); Human Metapneumovirus Not Detected (Not Detect); Human Rhinovirus/Enterovirus Detected (Not Detect); Influenza A Not Detected (Not Detect); Influenza B Not Detected (Not Detect); Mycoplasma pneumoniae Not Detected (Not Detect); Parainfluenza Virus 1 Not Detected (Not Detect); Parainfluenza Virus 2 Not Detected (Not Detect); Parainfluenza Virus 3 Not Detected (Not Detect); Parainfluenza Virus 4 Not Detected (Not Detect); Respiratory Syncytial Virus Not Detected (Not Detect); SARS- CoV-2 Not Detected (Not Detecte)
== END 2024-12-27 11:10 | disposition home or self-care (01) ==
PROVIDERS: Emergency Provider Emergency Medicine; PCP Family Medicine; Referring Provider Family Medicine
DX: J44.1 Chronic obstructive pulmonary disease with (acute) exacerbation (principal); J20.6 Acute bronchitis due to rhinovirus; R05.9 Cough, unspecified; R09.81 Nasal congestion
CPT/HCPCS: 36415; 71045; 80053; 82550; 83880; 84484; 85025; 85610; 85730; 87633; 93005; 93010; 96374; 99284; J2919

== ENCOUNTER 2025-02-01 21:24 | Emergency (ER) | payer MEDICARE, SELFPAY ==
[2024-07-18 14:03] VITALS: BMI 21.0
[2025-02-01] VITALS (8 sets, daily range): BP systolic 128–198; BP diastolic 80–125; PULSE 83–92; RESP 16–20; TEMP 36.4; O2SAT 93–98; BMI 19.5
--- NOTE | 2025-02-01 21:40 | DI.RAD.S_ITS ---
PROCEDURE: XR CHEST 1V INDICATIONS: Shortness of breath TECHNIQUE: One view of the chest was acquired. COMPARISON: [facility], CR, XR CHEST 1V, 04/24/2024, 16:36. [facility], CR, XR CHEST 1V, 04/25/2023, 19:09. [facility], CR, XR CHEST 1V, 12/27/2024, 8:16. [facility], CR, XR CHEST 1V, 12/22/2024, 11:00. FINDINGS: Surgical changes and devices: Left chest wall generator with cardiac leads. Lungs and pleura: Hyperinflation. Streaky right upper lung zone opacity, progressed from 04/24/2024. Mediastinum: Mediastinal contours appear normal. Heart size is normal. Bones and chest wall: No suspicious bony lesions. Overlying soft tissues appear unremarkable. IMPRESSION: No acute cardiopulmonary abnormality is seen. Streaky right upper lung zone opacity, progressed from 2023. Findings probably represent scar, less likely malignancy. Outpatient chest CT without contrast should be considered. Dictated by: Cipriano Aguirre M.D. on 02/01/2025 at 22:08 Approved by: Cipriano Aguirre M.D. on 02/01/2025 at 22:09
--- NOTE | 2025-02-01 21:50 | EKG_ITS ---
[place] [address] [address] [place] [id number] Test Date: 2025-02-01 Pat Name: Apple Juarez Department: [facility] Room: Gender: Female Tray Checker: : 1940 Requested By: Order Number: [id number] Reading MD: Maged Mesa Measurements Intervals [place] Rate: 87 P: 73 [place]: 154 QRS: -39 QRSD: 146 T: 95 QT: 418 QTc: 502 Interpretive Statements Sinus rhythm with premature atrial complexes Left axis deviation Left bundle branch block Electronically Signed On 02-02-2025 7:25:13 PDT by Maged Mesa
--- NOTE | 2025-02-01 21:56 | ED.SOB ---
HPI - SOB/Dyspnea General Chief Complaint: Shortness of Breath/Dyspnea Stated Complaint: SOB Time Seen by Provider: 02/01/25 21:32 Source: patient Mode of arrival: EMS Limitations: no limitations History of Present Illness HPI Narrative: 84-year-old female history of COPD CHF TIA pacemaker presents with increasing shortness of breath since yesterday unable to sleep along with cough with clear sputum production despite using nebulizer treatments at home brought in by EMS with DuoNeb given prior to arrival. Patient denies chest pain increased leg swelling weight gain leg pain nausea vomiting diarrhea fever chills sore throat body aches. Other than what is stated 14 point review of system is negative. Related Data Previous Rx's Medication Instructions Recorded diclofenac sodium 1 % topical gel 2 g topical QID #100 grams 03/17/22 (Voltaren Arthritis Pain) contour plus #28 ea 05/26/22 bupropion HCl 150 mg tablet,12 hr 150 mg PO DAILY #90 tabs 05/15/24 sustained-release carvedilol 3.125 mg tablet See Rx Instructions .Route 05/15/24 .COMPLEX #180 tabs gabapentin 300 mg capsule 300 mg PO ONCE PM #90 caps 05/15/24 estradiol 0.01% (0.1 mg/gram) 0.25 appful vaginal BEDTIME #42.5 06/11/24 vaginal cream grams cyproheptadine 4 mg tablet 4 mg PO BID #180 tabs 08/11/24 clopidogrel 75 mg tablet 75 mg PO DAILY #90 tabs 08/28/24 atorvastatin 80 mg tablet 80 mg PO BEDTIME #90 tabs 10/02/24 furosemide 20 mg tablet (Lasix) 20 mg PO DAILY #3 tabs 12/22/24 prednisone 10 mg tablets in a dose See Rx Instructions PO .COMPLEX 12/22/24 pack #21 ea benzonatate 100 mg capsule 100 mg PO TID PRN cough #20 caps 12/27/24 methylprednisolone 4 mg tablets in See Rx Instructions PO .COMPLEX 12/27/24 a dose pack (Medrol (Jermaine)) #21 ea albuterol sulfate 2.5 mg/3 mL 2.5 mg (3 mL) inhalation Q4-6H PRN 01/29/25 (0.083 %) solution for nebulization shortness of breath or wheezing #75 mL prednisone 20 mg tablet 20 mg PO DAILY #5 tabs 02/01/25 Allergies Allergy/AdvReac Type Severity Reaction Status Date / Time latex [LATEX] Allergy Mild Verified 12/27/24 08:29 amoxicillin [AMOXICILLIN] Allergy Unknown Verified 12/27/24 08:29 levofloxacin [LEVOFLOXACIN] Allergy Unknown Verified 12/27/24 08:29 niacin Allergy Unknown Verified 12/27/24 08:29 sulfamethoxazole Allergy Unknown Verified 12/27/24 08:29 [From Bactrim] tobramycin Allergy Unknown Verified 12/27/24 08:29 trimethoprim [From Bactrim] Allergy Unknown Verified 12/27/24 08:29 varenicline [From Chantix] Allergy Unknown Verified 12/27/24 08:29 Review of Systems Review of Systems ROS Unobtainable: All systems reviewed & are unremarkable except as noted in HPI and below Patient History Medical History Incomplete bladder emptying ARF (acute renal failure) Cat bite of forearm Carotid artery disease Mobitz type 2 second degree AV block CHF (congestive heart failure) Ganglion cyst COPD (chronic obstructive pulmonary disease) Hypertension Depression Vision disorder Psoriasis (~1999) Acne Fibromyalgia Chronic back pain Measles Chicken pox Herpes (~1999) Fibroids Endometriosis History of urinary incontinence Irritable bowel syndrome Diverticular disease Colon polyps Ischemic colitis Surgical History Anesthesia History of tonsillectomy History of appendectomy History of bilateral oophorectomies H/O: hysterectomy Pacemaker Family History Father Diabetes mellitus Mother Diabetes mellitus Brother Diabetes mellitus Sister Stroke Social History marital status: number of children: 3 household members: family and none lives independently: Yes alcohol intake: current substance use type: does not use tobacco type: cigarettes alcohol intake frequency: holidays/special occasions only Exam Narrative Exam Narrative: GENERAL: [84] year old patient appears stated age. Well-developed patient, in mild distress. HEAD: Atraumatic. Normocephalic. EYES: Pupils equal round and reactive. Extraocular motions intact. No scleral icterus. No injection or drainage. ENT: Nose without bleeding, purulent drainage. Throat without erythema, tonsillar hypertrophy or exudate. Airway patent. NECK: Trachea midline. Non tender CARDIOVASCULAR: Regular rate and rhythm without murmurs, gallops, or rubs. RESPIRATORY: Decreased breath sounds bilaterally with diffuse wheeze throughout bilaterally GASTROINTESTINAL: Abdomen soft, non-tender, nondistended. EXTREMITIES: No edema or joint tenderness. BACK: Nontender without deformity or crepitance. No flank tenderness. NEURO: AOx3. SKIN: No rash or erythema of visible areas Initial Vital Signs Initial Vital Signs: Vital Signs Temperature 97.6 F 02/01/25 21:37 Pulse Rate 86 02/01/25 21:37 Respiratory Rate 19 02/01/25 21:37 Blood Pressure 163/92 H 02/01/25 21:37 Pulse Oximetry 98 02/01/25 21:37 Oxygen Delivery Method Room Air 02/01/25 21:37 Course Orders Ordered: ED Orders 02/01/25 21:40 XR chest 1V Stat EKG-12 Lead Stat Measure peak expiratory flow STAT RT Consult Eval and Treat STAT 02/01/25 22:09 Covid-19 + FLU A/B + RSV - PCR Stat 02/01/25 22:20 Complete Blood Count AUTO DIFF Stat Comprehensive Metabolic Panel Stat Lactate (Lactic Acid) Stat NT-proBNP (BNP-Adult 18+) Stat Prothrombin Time INR Stat Troponin I Stat Discontinued Medications Albuterol/Ipratropium (Albuterol/Ipratropium 3 Ml Ampul) 3 ml INH NOW ONE Stop: 02/01/25 22:09 Last Admin: 02/01/25 22:12 Dose: 3 ml Documented By: FRANCISCO Albuterol/Ipratropium (Albuterol/Ipratropium 3 Ml Ampul) 3 ml INH NOW ONE Stop: 02/01/25 22:10 Last Admin: 02/01/25 22:12 Dose: 3 ml Documented By: PV Methylprednisolone (Methylprednisolone 125 Mg/2 Ml Vial) 125 mg IV NOW ONE Stop: 02/01/25 22:09 Last Admin: 02/01/25 22:30 Dose: 125 mg Documented By: RLC Vital Signs Vital signs: Vital Signs - 8 hr 02/01/25 21:37 02/01/25 22:13 Temperature 97.6 F Pulse Rate 86 83 Respiratory Rate 19 16 Blood Pressure 163/92 H Pulse Oximetry 98 97 Oxygen Delivery Method Room Air Room Air Fraction of Inspired Oxygen 21 MDM - SOB/Dyspnea Lab Data 02/01/25 22:20 02/01/25 22:20 Labs: Lab Results 02/01/25 Range/Units 22:20 WBC 7.8 (4.5-11.0) X10^3/uL RBC 4.58 (4.0-5.2) X10^6/uL Hgb 13.1 (12.0-16.0) g/dL Hct 40.2 (36-46) % MCV 87.8 (80-100) fL MCH 28.7 (26-34) PG MCHC 32.6 (30-36) % RDW 16.5 H (11.6-14.8) % Plt Count 252 (150-400) X10^3/uL Neut % (Auto) 60.7 (50-75) % Lymph % (Auto) 25.9 (25-40) % Beadle % (Auto) 9.4 (3-14) % Eos % (Auto) 3.6 (2-4) % Baso % (Auto) 0.4 (0-2) % Neut # (Auto) 4700 (4053-6300) /uL Lymph # (Auto) 2000 (1457-7653) /uL Beadle # (Auto) 700 (0-900) /uL Eos # (Auto) 300 (0-450) /uL Baso # (Auto) 0 (0-100) /uL PT 10.1 (9.4-12.5) SECONDS INR 0.9 (0.9-1.3) Sodium 139 (137-145) mmol/L Potassium 3.8 (3.4-5.1) mmol/L Chloride 107 (98-107) mmol/L Carbon Dioxide 28 (22-32) mmol/L BUN 27 H (7-17) mg/dL Creatinine 0.98 (0.52-1.04) mg/dL Estimated GFR 58 L (>60) mL/min BUN/Creatinine Ratio 27.6 H (6-22) Glucose 100 H (70-99) mg/dL Lactate 0.9 (0.7-2.1) mmol/L Calcium 9.0 (8.4-10.2) mg/dL Total Bilirubin 0.4 (0.2-1.3) mg/dL AST 30 (14-36) IU/L ALT 15 (<35) IU/L Alkaline Phosphatase 107 (38-126) U/L Troponin I 0.021 (0.01-0.034) ng/mL NT-Pro-B Natriuret Pep 1070 H (<450) pg/mL Total Protein 6.5 (6.3-8.2) g/dL Albumin 3.7 (3.5-5.0) g/dL Globulin 2.8 (1.7-4.1) g/dL Albumin/Globulin Ratio 1.3 (1.0-2.8) Imaging Data Chest x-ray: Radiologist's Impression: [address] [address] XRay Report Signed Patient: Apple Juarez MR#: [id number] : 1940 Acct:[id number] Age/Sex: 84 / F Date of Service: 02/01/25 Loc: ED Accession Number: [id number] Procedure: XR chest 1V Ordering Provider: Thanh Victoria D.O. PROCEDURE: XR CHEST 1V INDICATIONS: Shortness of breath TECHNIQUE: One view of the chest was acquired. COMPARISON: [facility], CR, XR CHEST 1V, 04/24/2024, 16:36. [facility], CR, XR CHEST 1V, 04/25/2023, 19:09. [facility], CR, XR CHEST 1V, 12/27/2024, 8:16. [facility], CR, XR CHEST 1V, 12/22/2024, 11:00. FINDINGS: Surgical changes and devices: Left chest wall generator with cardiac leads. Lungs and pleura: Hyperinflation. Streaky right upper lung zone opacity, progressed from 04/24/2024. Mediastinum: Mediastinal contours appear normal. Heart size is normal. Bones and chest wall: No suspicious bony lesions. Overlying soft tissues appear unremarkable. IMPRESSION: No acute cardiopulmonary abnormality is seen. Streaky right upper lung zone opacity, progressed from 2023. Findings probably represent scar, less likely malignancy. Outpatient chest CT without contrast should be considered. ECG Data Interpretation: SR LAD LBBB HR 87 PA 154 QRS [address]-t wave change Unchanged from 12/27/24 MDM Narrative Medical decision making narrative: All lab work, vital signs, nurse triage note, medication list, and previous ER visits all reviewed. Chest x-ray showed no acute cardiopulmonary process however streaky right upper lung zone opacity progressed from 2023 findings probably represent scar less likely malignancy recommend outpatient chest CT without contrast. Lab work did not show any elevated white count BNP was 10 70 troponin was normal EKG showed sinus rhythm with PAC left axis deviation left bundle unchanged from 12/27/2024. Patient given DuoNeb x2 Solu-Medrol 125 mg and lasix 40mg IV here patient feels much better on reexamination and would like to go home. Different this includes CHF, COPD exacerbation NSTEMI STEMI pneumonia pneumothorax PE. Patient will be discharged on prednisone and to take Lasix 40 mg for 2 more days. And to follow up with PCP this week for reexamination and return with new or worsening symptoms. Discharge Plan Departure Patient Disposition: Home Clinical Impression: Acute exacerbation of chronic obstructive pulmonary disease Instructions: Chronic Obstructive Pulmonary Disease Activity Restrictions/Additional Instructions: Return with new or worsening symptoms. Take your medicines as prescribed. Please also take your Lasix pill twice a day for the next 2 days. Please follow up with PCP in 1 week for re-evaluation in also for a streaky right upper lung zone opacity that has since progressed from 2023 that is going to need outpatient chest CT without contrast. Prescriptions: New prednisone 20 mg tablet 20 mg PO DAILY Qty: 5 0RF No Action carvedilol 3.125 mg tablet See Rx Instructions .ROUTE .COMPLEX Qty: 180 2RF Dose Instruction: TAKE ONE TABLET BY MOUTH TWICE DAILY WITH FOOD Rx Instructions: TAKE ONE TABLET BY MOUTH TWICE DAILY WITH FOOD bupropion HCl 150 mg tablet sustained-release 12 hr 150 mg PO DAILY Qty: 90 1RF gabapentin 300 mg capsule 300 mg PO ONCE PM Qty: 90 1RF cyproheptadine 4 mg tablet 4 mg PO BID Qty: 180 2RF clopidogrel 75 mg tablet 75 mg PO DAILY Qty: 90 3RF atorvastatin 80 mg tablet 80 mg PO BEDTIME Qty: 90 3RF albuterol sulfate 2.5 mg /3 mL (0.083 %) solution for nebulization 2.5 mg inhalation Q4-6H PRN (Reason: shortness of breath or wheezing) Qty: 75 0RF diclofenac sodium [Voltaren Arthritis Pain] 1 % gel 2 g topical QID Qty: 100 5RF Rx Instructions: apply to single elbow, wrist or hand; for hand includes palm/fingers/back of hand estradiol 0.01 % (0.1 mg/gram) cream 0.25 appful vaginal BEDTIME Qty: 42.5 3RF Rx Instructions: Apply small amount with finger to vaginal opening and labia at bedtime for 2 weeks, then twice weekly thereafter (DME) contour plus See Rx Instructions .Route .MEDSUPPLY Qty: 28 12RF Rx Instructions: incontinence ultimate bladder pads. medline prednisone 10 mg tablets,dose pack See Rx Instructions .ROUTE .COMPLEX Qty: 21 0RF Rx Instructions: 6 tabs p.o. x1 day, then 5 tabs p.o. x1 day, then 4 tablets p.o. x1 day, then 3 tabs p.o. x1 day, then 2 tabs p.o. x1 day, then 1 tab p.o. x1 day furosemide [Lasix] 20 mg tablet 20 mg PO DAILY Qty: 3 0RF benzonatate 100 mg capsule 100 mg PO TID PRN (Reason: cough) Qty: 20 0RF methylprednisolone [Medrol (Jermaine)] 4 mg tablets,dose pack See Rx Instructions .ROUTE .COMPLEX Qty: 21 0RF Rx Instructions: orally per package directions Referrals: Mir Bingham DO [Primary Care Provider] - Stand Alone Forms: Patient Portal/API/Survey
[2025-02-01] MEDS: ALBUTEROL/IPRATROPIUM 3 ML AMPUL INH ×2 (22:12)
[2025-02-01] MEDS: methylPREDNISolone 125 MG/2 ML VIAL IV (22:30)
[2025-02-01 22:32] LABS: Add Manual Diff / Slide Review NO; Basophils Absolute Auto 0 /uL (0-100); Basophils Percent Auto 0.4 % (0-2); Eosinophils Absolute Auto 300 /uL (0-450); Eosinophils Percent Auto 3.6 % (2-4); Hematocrit 40.2 % (36-46); Hemoglobin 13.1 g/dL (12.0-16.0); Lymphocytes Absolute Auto 2000 /uL (1100-4500); Lymphocytes Percent Auto 25.9 % (25-40); Mean Corpuscular HGB Conc 32.6 % (30-36); Mean Corpuscular Hemoglobin 28.7 PG (26-34); Mean Corpuscular Volume 87.8 fL (80-100); Monocytes Absolute Auto 700 /uL (0-900); Monocytes Percent Auto 9.4 % (3-14); Neutrophils Absolute Auto 4700 /uL (1500-7000); Neutrophils Percent Auto 60.7 % (50-75); Platelet Count 252 X10^3/uL (150-400); Red Blood Cell Count 4.58 X10^6/uL (4.0-5.2); Red Cell Distribution Width 16.5 % (11.6-14.8); White Blood Cell Count 7.8 X10^3/uL (4.5-11.0)
[2025-02-01 22:41] LABS: INR 0.9 (0.9-1.3); Prothrombin Time 10.1 SECONDS (9.4-12.5)
[2025-02-01 22:44] LABS: Lactate (Lactic Acid) 0.9 mmol/L (0.7-2.1)
[2025-02-01 22:45] LABS: Alanine Aminotransferase 15 IU/L (<35); Albumin 3.7 g/dL (3.5-5.0); Albumin Globulin Ratio 1.3 (1.0-2.8); Alkaline Phosphatase 107 U/L (38-126); Aspartate Aminotransferase 30 IU/L (14-36); BUN Creatinine Ratio 27.6 (6-22); Bilirubin Total 0.4 mg/dL (0.2-1.3); Blood Urea Nitrogen 27 mg/dL (7-17); Carbon Dioxide 28 mmol/L (22-32); Chloride 107 mmol/L (98-107); Estimated Glomerular Filt Rate 58 mL/min (>60); Globulin 2.8 g/dL (1.7-4.1); Glucose 100 mg/dL (70-99); HEMOLYSIS < 15 (0-50); Potassium 3.8 mmol/L (3.4-5.1); Sodium 139 mmol/L (137-145); Total Protein 6.5 g/dL (6.3-8.2)
[2025-02-01 22:56] LABS: NT-proBNP (BNP-Adult 18+) 1070 pg/mL (<450); Troponin I 0.021 ng/mL (0.01-0.034)
== END 2025-02-01 23:41 | disposition home or self-care (01) ==
PROVIDERS: Emergency Provider Family Medicine; PCP Family Medicine
DX: J44.1 Chronic obstructive pulmonary disease with (acute) exacerbation (principal)
CPT/HCPCS: 71045; 80053; 83605; 83880; 84484; 85025; 85610; 93005; 94640; 96374; 99284; J2919

== ENCOUNTER 2025-02-03 16:43 | Emergency (ER) | payer MEDICARE, SELFPAY ==
[2024-07-18 14:03] VITALS: BMI 21.0
[2025-02-03 16:57] VITALS: BP 198/94; PULSE 86; RESP 26; TEMP 36.6; O2SAT 96; BMI 19.5
--- NOTE | 2025-02-03 17:24 | DI.RAD.S_ITS ---
PROCEDURE: XR CHEST 1V INDICATIONS: dyspnea TECHNIQUE: One view of the chest was acquired. COMPARISON: [facility], CR, XR CHEST 1V, 12/27/2024, 8:16. [facility], CR, XR CHEST 1V, 02/01/2025, 21:44. FINDINGS: Surgical changes and devices: Cardiac pacemaker is seen with pulse generator in the left chest. Lungs and pleura: Lungs are clear. No pleural effusions or pneumothorax. Mediastinum: Mediastinal contours appear normal. Heart size is normal. Bones and chest wall: No suspicious bony lesions. Overlying soft tissues appear unremarkable. IMPRESSION: No acute cardiopulmonary abnormality is seen. Approved by: Fan Cruz M.D. on 02/03/2025 at 17:08
[2025-02-03 17:45] LABS: Add Manual Diff / Slide Review NO; Basophils Absolute Auto 200 /uL (0-100); Basophils Percent Auto 1.5 % (0-2); Eosinophils Absolute Auto 400 /uL (0-450); Eosinophils Percent Auto 3.5 % (2-4); Hematocrit 42.7 % (36-46); Hemoglobin 14.1 g/dL (12.0-16.0); Lymphocytes Absolute Auto 2600 /uL (1100-4500); Mean Corpuscular Hemoglobin 28.8 PG (26-34); Mean Corpuscular Volume 87.4 fL (80-100); Monocytes Absolute Auto 800 /uL (0-900); Monocytes Percent Auto 7.4 % (3-14); Neutrophils Absolute Auto 6300 /uL (1500-7000); Neutrophils Percent Auto 61.6 % (50-75); Platelet Count 288 X10^3/uL (150-400); Red Blood Cell Count 4.88 X10^6/uL (4.0-5.2); Red Cell Distribution Width 16.8 % (11.6-14.8); White Blood Cell Count 10.2 X10^3/uL (4.5-11.0)
[2025-02-03 17:50] VITALS: PULSE 83; O2SAT 95
[2025-02-03 17:51] VITALS: BP 172/84; PULSE 84; O2SAT 95
[2025-02-03] MEDS: methylPREDNISolone 125 MG/2 ML VIAL IV (17:59)
[2025-02-03 18:00] VITALS: BP 166/80; PULSE 81; O2SAT 91
[2025-02-03] MEDS: FUROSEMIDE 40 MG/4 ML VIAL IV (18:00)
[2025-02-03 18:01] LABS: Alanine Aminotransferase 20 IU/L (<35); Albumin 4.2 g/dL (3.5-5.0); Albumin Globulin Ratio 1.4 (1.0-2.8); Alkaline Phosphatase 109 U/L (38-126); Aspartate Aminotransferase 35 IU/L (14-36); BUN Creatinine Ratio 30.1 (6-22); Bilirubin Total 0.6 mg/dL (0.2-1.3); Blood Urea Nitrogen 31 mg/dL (7-17); Calcium 9.1 mg/dL (8.4-10.2); Carbon Dioxide 29 mmol/L (22-32); Chloride 107 mmol/L (98-107); Estimated Glomerular Filt Rate 54 mL/min (>60); Globulin 3.1 g/dL (1.7-4.1); Glucose 102 mg/dL (70-99); HEMOLYSIS < 15 (0-50); Potassium 3.4 mmol/L (3.4-5.1); Sodium 141 mmol/L (137-145); Total Protein 7.3 g/dL (6.3-8.2)
--- NOTE | 2025-02-03 18:19 | ED_ITS ---
HPI - SOB/Dyspnea General Chief Complaint: Shortness of Breath/Dyspnea Stated Complaint: Difficulty breathing Time Seen by Provider: 02/03/25 16:44 Source: patient and EMS Mode of arrival: EMS Limitations: no limitations History of Present Illness HPI Narrative: 84-year-old female past medical history of CHF, COPD not requiring supplemental oxygen at baseline, hypertension, presenting via EMS from home for evaluation of shortness of breath, cough, has been ongoing persistent for the past several days, was seen here 2 days ago for the same, according to EMS patient has not been taking any of her medications that she was discharged home with, patient did have albuterol inhaler performed here in the emergency department. She denies any other symptoms such as headache visual disturbances fever chills nausea vomiting abdominal pain or any other GI/ symptoms time. Related Data Previous Rx's Medication Instructions Recorded diclofenac sodium 1 % topical gel 2 g topical QID #100 grams 03/17/22 (Voltaren Arthritis Pain) contour plus #28 ea 05/26/22 bupropion HCl 150 mg tablet,12 hr 150 mg PO DAILY #90 tabs 05/15/24 sustained-release carvedilol 3.125 mg tablet See Rx Instructions .Route 05/15/24 .COMPLEX #180 tabs gabapentin 300 mg capsule 300 mg PO ONCE PM #90 caps 05/15/24 estradiol 0.01% (0.1 mg/gram) 0.25 appful vaginal BEDTIME #42.5 06/11/24 vaginal cream grams cyproheptadine 4 mg tablet 4 mg PO BID #180 tabs 08/11/24 clopidogrel 75 mg tablet 75 mg PO DAILY #90 tabs 08/28/24 atorvastatin 80 mg tablet 80 mg PO BEDTIME #90 tabs 10/02/24 furosemide 20 mg tablet (Lasix) 20 mg PO DAILY #3 tabs 12/22/24 prednisone 10 mg tablets in a dose See Rx Instructions PO .COMPLEX 12/22/24 pack #21 ea benzonatate 100 mg capsule 100 mg PO TID PRN cough #20 caps 12/27/24 methylprednisolone 4 mg tablets in See Rx Instructions PO .COMPLEX 12/27/24 a dose pack (Medrol (Jermaine)) #21 ea albuterol sulfate 2.5 mg/3 mL 2.5 mg (3 mL) inhalation Q4-6H PRN 01/29/25 (0.083 %) solution for nebulization shortness of breath or wheezing #75 mL prednisone 20 mg tablet 20 mg PO DAILY #5 tabs 02/01/25 albuterol sulfate 90 mcg/actuation 2 inh inhalation Q6H PRN shortness 02/03/25 breath activated powder inhaler of breath #1 ea prednisone 20 mg tablet 40 mg (2 x 20 mg) PO DAILY 5 days 02/03/25 #10 tabs Allergies Allergy/AdvReac Type Severity Reaction Status Date / Time latex [LATEX] Allergy Mild Verified 12/27/24 08:29 amoxicillin [AMOXICILLIN] Allergy Unknown Verified 12/27/24 08:29 levofloxacin [LEVOFLOXACIN] Allergy Unknown Verified 12/27/24 08:29 niacin Allergy Unknown Verified 12/27/24 08:29 sulfamethoxazole Allergy Unknown Verified 12/27/24 08:29 [From Bactrim] tobramycin Allergy Unknown Verified 12/27/24 08:29 trimethoprim [From Bactrim] Allergy Unknown Verified 12/27/24 08:29 varenicline [From Chantix] Allergy Unknown Verified 12/27/24 08:29 Review of Systems Review of Systems Narrative: General: Denies fever, chills, weight loss HEENT: Denies headache, eye drainage, eye irritation, head trauma, sore throat, voice change Cardiovascular: Denies any chest pain, palpitations, tachycardia Respiratory: Positive shortness of breath, cough, denies wheeze, stridor GI/: Denies any abdominal pain, nausea, vomiting, diarrhea, bright red blood per rectum, melanotic stools, urinary frequency, urinary retention, dysuria, hematuria MSK: Denies any joint pain, muscle pains, swelling Skin: Denies any rashes, lesions, discoloration Neuro: Denies any headache, lightheadedness, dizziness, fainting, weakness Psych: Denies SI/HI Patient History Medical History Incomplete bladder emptying ARF (acute renal failure) Cat bite of forearm Carotid artery disease Mobitz type 2 second degree AV block CHF (congestive heart failure) Ganglion cyst COPD (chronic obstructive pulmonary disease) Hypertension Depression Vision disorder Psoriasis (~1999) Acne Fibromyalgia Chronic back pain Measles Chicken pox Herpes (~1999) Fibroids Endometriosis History of urinary incontinence Irritable bowel syndrome Diverticular disease Colon polyps Ischemic colitis Surgical History Anesthesia History of tonsillectomy History of appendectomy History of bilateral oophorectomies H/O: hysterectomy Pacemaker Family History Father Diabetes mellitus Mother Diabetes mellitus Brother Diabetes mellitus Sister Stroke Social History marital status: number of children: 3 household members: family and none lives independently: Yes alcohol intake: current substance use type: does not use Smoking Status: Current every day smoker tobacco type: cigarettes alcohol intake frequency: holidays/special occasions only Exam Narrative Exam Narrative: General: Cooperative, well-developed, not in acute distress HEENT: Normocephalic, atraumatic, PERRLA, normal sclera, eyelids normal Neck: Active full range of motion, atraumatic Chest: Normal to inspection, negative crepitus, no overlying erythema ecchymosis Respiratory: Patient coughing on exam, very mild expiratory wheezes in lower lung jones the patient is speaking full sentences protecting airway not requiring any supplemental oxygen Normal respiratory effort, not in acute respiratory distress, clear to auscultation bilaterally negative tachypnea, rhonchi, rales Cardiology: Regular rate rhythm negative gallop, murmur, rubs GI/: No tenderness to palpation, soft, non rigid, normal to inspection, exam deferred MSK: Full active range of motion in all 4 extremities, atraumatic, no tenderness to palpation of any bony prominences Skin: No rashes or lesions noted Neuro: Alert awake oriented x3, moves all 4 extremities spontaneously, cranial nerves intact, able to answer all questions appropriately follows commands appropriately Psych: Cooperative, negative suicidal or homicidal ideations Initial Vital Signs Initial Vital Signs: Vital Signs Temperature 97.9 F 02/03/25 16:57 Pulse Rate 86 02/03/25 16:57 Respiratory Rate 26 H 02/03/25 16:57 Blood Pressure 198/94 H 02/03/25 16:57 Pulse Oximetry 96 02/03/25 16:57 Oxygen Delivery Method Room Air 02/03/25 16:57 Course Orders Ordered: ED Orders 02/03/25 17:24 XR chest 1V Stat Measure peak expiratory flow PRE TREATMENT 02/03/25 17:37 Complete Blood Count AUTO DIFF Stat Comprehensive Metabolic Panel Stat Discontinued Medications Furosemide (Furosemide 40 Mg/4 Ml Vial) 40 mg IV NOW ONE Stop: 02/03/25 17:25 Last Admin: 02/03/25 18:00 Dose: 40 mg Documented By: LITZY Methylprednisolone (Methylprednisolone 125 Mg/2 Ml Vial) 125 mg IV NOW ONE Stop: 02/03/25 17:26 Last Admin: 02/03/25 17:59 Dose: 125 mg Documented By: LITZY Vital Signs Vital signs: Vital Signs - 8 hr 02/03/25 16:57 Temperature 97.9 F Pulse Rate 86 Respiratory Rate 26 H Blood Pressure 198/94 H Pulse Oximetry 96 Oxygen Delivery Method Room Air MDM - SOB/Dyspnea Differential Diagnosis Differential diagnosis: Likely acute exacerbation of chronic obstructive airways disease, congestive heart failure, community acquired pneumonia and asthma with exacerbation Lab Data 02/03/25 17:37 02/03/25 17:37 Labs: Lab Results 02/03/25 Range/Units 17:37 WBC 10.2 (4.5-11.0) X10^3/uL RBC 4.88 (4.0-5.2) X10^6/uL Hgb 14.1 (12.0-16.0) g/dL Hct 42.7 (36-46) % MCV 87.4 (80-100) fL MCH 28.8 (26-34) PG MCHC 33.0 (30-36) % RDW 16.8 H (11.6-14.8) % Plt Count 288 (150-400) X10^3/uL Neut % (Auto) 61.6 (50-75) % Lymph % (Auto) 26.0 (25-40) % Bland % (Auto) 7.4 (3-14) % Eos % (Auto) 3.5 (2-4) % Baso % (Auto) 1.5 (0-2) % Neut # (Auto) 6300 (0706-4705) /uL Lymph # (Auto) 2600 (1314-0701) /uL Bland # (Auto) 800 (0-900) /uL Eos # (Auto) 400 (0-450) /uL Baso # (Auto) 200 H (0-100) /uL Sodium 141 (137-145) mmol/L Potassium 3.4 (3.4-5.1) mmol/L Chloride 107 (98-107) mmol/L Carbon Dioxide 29 (22-32) mmol/L BUN 31 H (7-17) mg/dL Creatinine 1.03 (0.52-1.04) mg/dL Estimated GFR 54 L (>60) mL/min BUN/Creatinine Ratio 30.1 H (6-22) Glucose 102 H (70-99) mg/dL Calcium 9.1 (8.4-10.2) mg/dL Total Bilirubin 0.6 (0.2-1.3) mg/dL AST 35 (14-36) IU/L ALT 20 (<35) IU/L Alkaline Phosphatase 109 (38-126) U/L Total Protein 7.3 (6.3-8.2) g/dL Albumin 4.2 (3.5-5.0) g/dL Globulin 3.1 (1.7-4.1) g/dL Albumin/Globulin Ratio 1.4 (1.0-2.8) Imaging Data Chest x-ray: Radiologist's Impression: [place] [address] XRay Report Signed Patient: Apple Juarez MR#: [id number] : 1940 Acct:[id number] Age/Sex: 84 / F Date of Service: 02/03/25 Loc: ED Accession Number: [id number] Procedure: XR chest 1V Ordering Provider: Adri Cohen MD PROCEDURE: XR CHEST 1V INDICATIONS: dyspnea TECHNIQUE: One view of the chest was acquired. COMPARISON: [facility], CR, XR CHEST 1V, 12/27/2024, 8:16. [facility], CR, XR CHEST 1V, 02/01/2025, 21:44. FINDINGS: Surgical changes and devices: Cardiac pacemaker is seen with pulse generator in the left chest. Lungs and pleura: Lungs are clear. No pleural effusions or pneumothorax. Mediastinum: Mediastinal contours appear normal. Heart size is normal. Bones and chest wall: No suspicious bony lesions. Overlying soft tissues appear unremarkable. IMPRESSION: No acute cardiopulmonary abnormality is seen. MDM Narrative Medical decision making narrative: 82-year-old female with a past medical history of COPD not requiring supplemental oxygen at baseline, CHF, hypertension, presenting from home via EMS for evaluation of dyspnea and wheeze, was seen here on 02/01/2025, she states that it feels exactly the same, she denies being discharged home with any medication, however according to medics they state that there was on opened medication at home, patient not requiring any supplemental oxygen here, was given Solu-Medrol, albuterol and Lasix with resolution of symptoms, at time of discharge patient is speaking full sentences protecting airway not requiring any supplemental oxygen, she states that she would prefer to go home, she states that she has enough nebulizers but does not have a rescue inhaler or steroids. This will be provided to her, lab work unremarkable, no leukocytosis, Chem panel unremarkable, strict return precautions were given to her patient as well as family member at bedside, they verbalized understanding of this and agrees to being discharged home with outpatient follow up. Discharge Plan Departure Patient Disposition: Home Clinical Impression: Acute exacerbation of chronic obstructive pulmonary disease Instructions: DI for Chronic Obstructive Pulmonary Disease Activity Restrictions/Additional Instructions: Please take your medications as prescribed and follow up with your primary care doctor Please read the discharge instructions sheet carefully and bring all papers to all doctor follow-up visits, as it may contain information that your doctor may want to see. Disease processes change and evolve, if your symptoms worsen or if you develop any new symptoms that are concerning to you please return for evaluation. Your evaluation today does not show any evidence of any life- threatening/serious illnesses requiring admission to the hospital or surgery. Please follow-up with your doctor for re-evaluation in approximately 1 day. Seek immediate medical attention for any worrisome symptoms. *If you do not have a primary care provider please contact the [facility] Resource line at [phone]. They will ask some questions about your medical history and help get you set up with a doctor in the community. Prescriptions: New albuterol sulfate 90 mcg/actuation aerosol powdr breath activated 2 inh inhalation Q6H PRN (Reason: shortness of breath) Qty: 1 2RF prednisone 20 mg tablet 40 mg PO DAILY 5 Days Qty: 10 0RF No Action carvedilol 3.125 mg tablet See Rx Instructions .ROUTE .COMPLEX Qty: 180 2RF Dose Instruction: TAKE ONE TABLET BY MOUTH TWICE DAILY WITH FOOD Rx Instructions: TAKE ONE TABLET BY MOUTH TWICE DAILY WITH FOOD bupropion HCl 150 mg tablet sustained-release 12 hr 150 mg PO DAILY Qty: 90 1RF gabapentin 300 mg capsule 300 mg PO ONCE PM Qty: 90 1RF cyproheptadine 4 mg tablet 4 mg PO BID Qty: 180 2RF clopidogrel 75 mg tablet 75 mg PO DAILY Qty: 90 3RF atorvastatin 80 mg tablet 80 mg PO BEDTIME Qty: 90 3RF albuterol sulfate 2.5 mg /3 mL (0.083 %) solution for nebulization 2.5 mg inhalation Q4-6H PRN (Reason: shortness of breath or wheezing) Qty: 75 0RF diclofenac sodium [Voltaren Arthritis Pain] 1 % gel 2 g topical QID Qty: 100 5RF Rx Instructions: apply to single elbow, wrist or hand; for hand includes palm/fingers/back of hand estradiol 0.01 % (0.1 mg/gram) cream 0.25 appful vaginal BEDTIME Qty: 42.5 3RF Rx Instructions: Apply small amount with finger to vaginal opening and labia at bedtime for 2 weeks, then twice weekly thereafter (DME) contour plus See Rx Instructions .Route .MEDSUPPLY Qty: 28 12RF Rx Instructions: incontinence ultimate bladder pads. medline prednisone 10 mg tablets,dose pack See Rx Instructions .ROUTE .COMPLEX Qty: 21 0RF Rx Instructions: 6 tabs p.o. x1 day, then 5 tabs p.o. x1 day, then 4 tablets p.o. x1 day, then 3 tabs p.o. x1 day, then 2 tabs p.o. x1 day, then 1 tab p.o. x1 day furosemide [Lasix] 20 mg tablet 20 mg PO DAILY Qty: 3 0RF benzonatate 100 mg capsule 100 mg PO TID PRN (Reason: cough) Qty: 20 0RF methylprednisolone [Medrol (Jermaine)] 4 mg tablets,dose pack See Rx Instructions .ROUTE .COMPLEX Qty: 21 0RF Rx Instructions: orally per package directions prednisone 20 mg tablet 20 mg PO DAILY Qty: 5 0RF Referrals: Mir Bingham, [Primary Care Provider] - Stand Alone Forms: Patient Portal/API/Survey
--- NOTE | 2025-02-03 18:20 | PC.NURSE ---
Patient is receiving IV lasix and patient reports that they would prefer a purewick over standing up to BSC due to SOB and weakness. Patient is wearing two pull on briefs that are saturated with urine, this RN changes the brief and does shanell care and places patient in new brief with purewick in place. Patient lives at home alone with no caregiver, this RN will give the patient senior resources that include caregiver at home options.
[2025-02-03 18:30] VITALS: BP 195/92; PULSE 86; O2SAT 92
[2025-02-03] MEDS: ALBUTEROL HFA PREPACK 1 BOX MISC (18:46)
--- NOTE | 2025-02-04 16:59 | EKG_ITS ---
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
== END 2025-02-03 18:50 | disposition home or self-care (01) ==
PROVIDERS: Emergency Medicine; Emergency Provider Student in an Organized Health Care Education/Training Program; PCP Family Medicine
DX: J44.1 Chronic obstructive pulmonary disease with (acute) exacerbation (principal)
CPT/HCPCS: 36415; 71045; 80053; 85025; 93005; 96374; 96375; 99284; J1938; J2919

== ENCOUNTER 2025-02-17 19:45 | Emergency (ER) | payer MEDICARE, SELFPAY ==
[2024-07-18 14:03] VITALS: BMI 21.0
[2025-02-17] VITALS (15 sets, daily range): BP systolic 165–223; BP diastolic 74–98; PULSE 76–84; RESP 22; TEMP 36.6; O2SAT 92–98; BMI 20.3
--- NOTE | 2025-02-17 19:56 | EKG_ITS ---
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
--- NOTE | 2025-02-17 19:56 | DI.RAD.S_ITS ---
PROCEDURE: XR CHEST 1V INDICATIONS: Shortness of breath TECHNIQUE: One view of the chest was acquired. COMPARISON: [facility], CR, XR CHEST 1V, 12/22/2024, 11:00. [facility], CR, XR CHEST 1V, 12/27/2024, 8:16. [facility], CR, XR CHEST 1V, 02/03/2025, 17:26. FINDINGS: Surgical changes and devices: Left-sided cardiac pacemaker. Lungs and pleura: Lungs are clear. No pleural effusions or pneumothorax. Stable changes of hyperaeration and flattening of the hemidiaphragms compatible with chronic obstructive pulmonary physiology. Left nipple shadow projects over the left lower lung zone. Mediastinum: Mediastinal contours appear normal. Heart size is normal. Bones and chest wall: No suspicious bony lesions. Overlying soft tissues appear unremarkable. IMPRESSION: Stable radiographic evaluation of the chest without acute cardiopulmonary abnormalities or focal consolidation. Changes compatible with chronic obstructive pulmonary physiology. Dictated by: Ean Calderon M.D. on 02/17/2025 at 20:36 Approved by: Ean Calderon M.D. on 02/17/2025 at 20:44
[2025-02-17 20:03] LABS: Add Manual Diff / Slide Review NO; Basophils Absolute Auto 100 /uL (0-100); Eosinophils Absolute Auto 700 /uL (0-450); Eosinophils Percent Auto 5.8 % (2-4); Hematocrit 41.4 % (36-46); Hemoglobin 13.8 g/dL (12.0-16.0); Lymphocytes Absolute Auto 2000 /uL (1100-4500); Lymphocytes Percent Auto 16.5 % (25-40); Mean Corpuscular HGB Conc 33.3 % (30-36); Mean Corpuscular Hemoglobin 28.9 PG (26-34); Mean Corpuscular Volume 86.7 fL (80-100); Monocytes Absolute Auto 900 /uL (0-900); Monocytes Percent Auto 7.3 % (3-14); Neutrophils Absolute Auto 8200 /uL (1500-7000); Neutrophils Percent Auto 69.4 % (50-75); Platelet Count 182 X10^3/uL (150-400); Red Blood Cell Count 4.78 X10^6/uL (4.0-5.2); Red Cell Distribution Width 16.4 % (11.6-14.8); White Blood Cell Count 11.8 X10^3/uL (4.5-11.0)
[2025-02-17 20:04] LABS: INR 0.9 (0.9-1.3); Prothrombin Time 9.7 SECONDS (9.4-12.5)
[2025-02-17 20:08] LABS: Lactate (Lactic Acid) 2.3 mmol/L (0.7-2.1)
[2025-02-17 20:09] LABS: Alanine Aminotransferase 22 IU/L (<35); Albumin Globulin Ratio 1.3 (1.0-2.8); Alkaline Phosphatase 107 U/L (38-126); Aspartate Aminotransferase 31 IU/L (14-36); BUN Creatinine Ratio 20.9 (6-22); Bilirubin Total 0.5 mg/dL (0.2-1.3); Blood Urea Nitrogen 19 mg/dL (7-17); Calcium 9.4 mg/dL (8.4-10.2); Carbon Dioxide 23 mmol/L (22-32); Chloride 106 mmol/L (98-107); Estimated Glomerular Filt Rate > 60 mL/min (>60); Glucose 113 mg/dL (70-99); HEMOLYSIS < 15 (0-50); Potassium 3.7 mmol/L (3.4-5.1); Sodium 139 mmol/L (137-145)
--- NOTE | 2025-02-17 20:11 | ED_ITS ---
HPI - General Adult General Chief complaint: Shortness of Breath/Dyspnea Stated complaint: SOB Time Seen by Provider: 02/17/25 20:00 Source: EMS Mode of arrival: EMS History of Present Illness HPI narrative: 84-year-old female with history of COPD, no oxygen use at home, as inhalers to use at home, recent cough productive of clear sputum and increasing shortness of breath over the last couple of days. Transport by EMS given albuterol bronchodilator during transport, no steroids given. Some improvement in shortness of breath on arrival. Denies chest pain. Denies fevers or chills. Denies abdominal pain, nausea, vomiting, diarrhea. Denies painful or frequent urination. Onset (ago): minute(s) Related Data Previous Rx's ?Medication ?Instructions ?Recorded diclofenac sodium 1 % topical gel 2 g topical QID #100 grams 03/17/22 (Voltaren Arthritis Pain) contour plus #28 ea 05/26/22 bupropion HCl 150 mg tablet,12 hr 150 mg PO DAILY #90 tabs 05/15/24 sustained-release carvedilol 3.125 mg tablet See Rx Instructions .Route 05/15/24 .COMPLEX #180 tabs gabapentin 300 mg capsule 300 mg PO ONCE PM #90 caps 0 05/15/24 estradiol 0.01% (0.1 mg/gram) 0.25 appful vaginal BEDT FLOR #42.5 06/11/24 vaginal cream grams cyproheptadine 4 mg tablet 4 mg PO BID #180 tabs 08/11 clopidogrel 75 mg tablet 75 mg PO DAILY #90 tabs 08/10 06/03 atorvastatin 80 mg tablet 80 mg PO BEDTIME #90 tabs furosemide 20 mg tablet (Lasix) 20 mg PO DAILY #3 tabs 12/22/24 benzonatate 100 mg capsule 100 mg PO TID PRN cough #20 caps 12/27/24 methylprednisolone 4 mg tablets in See Rx Instructions PO .COMPLEX 12/27/24 a dose pack (Medrol (Jermaine)) #21 ea albuterol sulfate 2.5 mg/3 mL 2.5 mg (3 mL) inhalation Q4-6H PRN 01/29/25 (0.083 %) solution for nebulization shortness of breat h or wheezing #75 mL albuterol sulfate 90 mcg/actuation 2 inh inhalation Q6 H PRN shortness 02/03/25 breath activated powder inhaler of breath #1 ea prednisone 10 mg tablet 10 mg PO DAILY #5 tabs 02/11 prednisone 20 mg tablet 40 mg (2 x 20 mg) PO DAILY 5 days 02/18/25 #10 tabs Allergies Allergy/AdvReac Type Severity Reaction Status Date / Time latex (LATEX) Allergy Mild Verified 02/17/25 20:05 amoxicillin (AMOXICILLIN) Allergy Unknown Verified 02/17/25 20:05 levofloxacin (LEVOFLOXACIN) Allergy Unknown Verified 02/17/25 20:05 niacin Allergy Unknown Verified 02/17/25 20:05 sulfamethoxazole (From Allergy Unknown Verified 02/17/25 20:05 Bactrim) tobramycin Allergy Unknown Verified 02/17/25 20:05 trimethoprim (From Bactrim) Allergy Unknown Verified 02/17/25 20:05 varenicline (From Chantix) Allergy Unknown Verified 02/17/25 20:05 Patient History Medical History Incomplete bladder emptying ARF (acute renal failure) Cat bite of forearm Carotid artery disease Mobitz type 2 second degree AV block CHF (congestive heart failure) Ganglion cyst COPD (chronic obstructive pulmonary disease) Hypertension Depression Vision disorder Psoriasis (~1999) Acne Fibromyalgia Chronic back pain Measles Chicken pox Herpes (~1999) Fibroids Endometriosis History of urinary incontinence Irritable bowel syndrome Diverticular disease Colon polyps Ischemic colitis Surgical History Anesthesia History of tonsillectomy History of appendectomy History of bilateral oophorectomies H/O: hysterectomy Pacemaker Family History Father Diabetes mellitus Mother Diabetes mellitus Brother Diabetes mellitus Sister Stroke Social History marital status: number of children: 3 household members: family and none lives independently: Yes alcohol intake: current substance use type: does not use tobacco type: cigarettes alcohol intake frequency: holidays/special occasions only Exam Narrative Exam Narrative: GENERAL: Well-developed patient, in mild distress. HEAD: Atraumatic. Normocephalic. EYES: Pupils equal round and reactive. Extraocular motions intact. No scleral icterus. No injection or drainage. ENT: Nose without bleeding, purulent drainage. Throat without erythema, tonsillar hypertrophy or exudate. Airway patent. NECK: Trachea midline. Non tender CARDIOVASCULAR: Regular rate and rhythm without murmurs, gallops, or rubs. RESPIRATORY: Clear to auscultation. Breath sounds equal bilaterally. No wheezes, rales, or rhonchi. GASTROINTESTINAL: Abdomen soft, non-tender, nondistended. EXTREMITIES: No edema or joint tenderness. BACK: Nontender without deformity or crepitance. No flank tenderness. NEURO: AOx3. Motor functions grossly nonfocal. SKIN: No rash or erythema of visible areas Initial Vital Signs Initial Vital Signs: Vital Signs Temperature 98 F 02/17/25 19:40 Pulse Rate 82 02/17/25 19:40 Respiratory Rate 22 02/17/25 19:40 Blood Pressure 198/78 H 02/17/25 19:40 Pulse Oximetry 98 02/17/25 19:40 Oxygen Delivery Method Aerosol Mask 02/17/25 19:40 Course Orders Ordered: ED Orders 02/17/25 19:45 Complete Blood Count AUTO DIFF Stat Comprehensive Metabolic Panel Stat Lactate (Lactic Acid) Stat NT-proBNP (BNP-Adult 18+) Stat Prothrombin Time INR Stat Troponin I Stat 02/17/25 19:56 XR chest 1V Stat EKG-12 Lead Stat Measure peak expiratory flow STAT RT Consult Eval and Treat STAT 02/17/25 20:15 Covid-19 + FLU A/B + RSV - PCR Stat 02/17/25 22:12 Trop I [Troponin I] Stat Discontinued Medications Albuterol (Albuterol 2.5 Mg/3 Ml Neb (Adult)) 2.5 mg INH NOW ONE Stop: 02/17/25 20:14 Last Admin: 02/17/25 20:28 Dose: 2.5 mg Documented By: IRIS Methylprednisolone (Methylprednisolone 125 Mg/2 Ml Vial) 125 mg IV NOW ONE Stop: 02/17/25 20:13 Last Admin: 02/17/25 20:28 Dose: 125 mg Documented By: IRIS Vital Signs Vital signs: Vital Signs - 8 hr 02/17/25 20:30 02/17/25 21:00 02/17/25 21:01 Pulse Rate 80 82 Blood Pressure 179/75 H Pulse Oximetry 93 93 02/17/25 21:01 02/17/25 21:30 02/17/25 21:36 Pulse Rate 82 78 78 Blood Pressure Pulse Oximetry 94 94 02/17/25 21:36 02/17/25 22:00 02/17/25 22:00 Pulse Rate 84 Blood Pressure 176/78 H 181/97 H Pulse Oximetry 94 02/17/25 22:10 02/17/25 22:31 02/17/25 22:58 Pulse Rate 84 Blood Pressure 165/74 H Pulse Oximetry 93 93 02/17/25 23:00 02/17/25 23:01 02/17/25 23:01 Pulse Rate 76 77 Blood Pressure 223/98 H Pulse Oximetry 93 93 02/17/25 23:04 02/17/25 23:04 Pulse Rate 79 Blood Pressure 188/75 H Pulse Oximetry 92 Medical Decision Making Lab Data Lab results reviewed: Yes I reviewed the patient's lab results. Lab results narrative: White blood cell count 76617, hemoglobin 13.8, platelets adequate. Glucose 113. BUN 19 with creatinine 0.91 normal renal function. Electrolytes unremarkable. Serum CO2 23 normal range. Liver functions normal. Lactate 2.3 slight elevation. 02/17/25 19:45 02/17/25 19:45 Labs: Lab Results 02/17/25 02/17/25 02/17/25 Range/Units 19:45 20:15 21:46 WBC 11.8 H (4.5-11.0) X10^3/uL RBC 4.78 (4.0-5.2) X10^6/uL Hgb 13.8 (12.0-16.0) g/dL Hct 41.4 (36-46) % MCV 86.7 (80-100) fL MCH 28.9 (26-34) PG MCHC 33.3 (30-36) % RDW 16.4 H (11.6-14.8) % Plt Count 182 (150-400) X10^3/uL Neut % (Auto) 69.4 (50-75) % Lymph % (Auto) 16.5 L (25-40) % [place] % (Auto) 7.3 (3-14) % Eos % (Auto) 5.8 H (2-4) % Baso % (Auto) 1.0 (0-2) % Neut # (Auto) 8200 H (2135-6077) /uL Lymph # (Auto) 2000 (5792-8039) /uL [place] # (Auto) 900 (0-900) /uL Eos # (Auto) 700 H (0-450) /uL Baso # (Auto) 100 (0-100) /uL PT 9.7 (9.4-12.5) SECONDS INR 0.9 (0.9-1.3) Sodium 139 (137-145) mmol/L Potassium 3.7 (3.4-5.1) mmol/L Chloride 106 (98-107) mmol/L Carbon Dioxide 23 (22-32) mmol/L BUN 19 H (7-17) mg/dL Creatinine 0.91 (0.52-1.04) mg/dL Estimated GFR > 60 (>60) mL/min BUN/Creatinine Ratio 20.9 (6-22) Glucose 113 H (70-99) mg/dL Lactate 2.3 H 1.3 (0.7-2.1) mmol/L Calcium 9.4 (8.4-10.2) mg/dL Total Bilirubin 0.5 (0.2-1.3) mg/dL AST 31 (14-36) IU/L ALT 22 (<35) IU/L Alkaline Phosphatase 107 (38-126) U/L Troponin I 0.025 (0.01-0.034) ng/mL NT-Pro-B Natriuret Pep 864 H (<450) pg/mL Total Protein 7.0 (6.3-8.2) g/dL Albumin 4.0 (3.5-5.0) g/dL Globulin 3.0 (1.7-4.1) g/dL Albumin/Globulin Ratio 1.3 (1.0-2.8) SARS-CoV-2 (PCR) Negative (Negative) Influenza A (RT-PCR) Flu a negative (NEGATIVE) Influenza B (RT-PCR) Flu b negative (NEGATIVE) RSV (PCR) Negative (Negative) 02/17/25 Range/Units 22:12 WBC (4.5-11.0) X10^3/uL RBC (4.0-5.2) X10^6/uL Hgb (12.0-16.0) g/dL Hct (36-46) % MCV (80-100) fL MCH (26-34) PG MCHC (30-36) % RDW (11.6-14.8) % Plt Count (150-400) X10^3/uL Neut % (Auto) (50-75) % Lymph % (Auto) (25-40) % [place] % (Auto) (3-14) % Eos % (Auto) (2-4) % Baso % (Auto) (0-2) % Neut # (Auto) (6262-0695) /uL Lymph # (Auto) (2644-7801) /uL [place] # (Auto) (0-900) /uL Eos # (Auto) (0-450) /uL Baso # (Auto) (0-100) /uL PT (9.4-12.5) SECONDS INR (0.9-1.3) Sodium (137-145) mmol/L Potassium (3.4-5.1) mmol/L Chloride (98-107) mmol/L Carbon Dioxide (22-32) mmol/L BUN (7-17) mg/dL Creatinine (0.52-1.04) mg/dL Estimated GFR (>60) mL/min BUN/Creatinine Ratio (6-22) Glucose (70-99) mg/dL Lactate (0.7-2.1) mmol/L Calcium (8.4-10.2) mg/dL Total Bilirubin (0.2-1.3) mg/dL AST (14-36) IU/L ALT (<35) IU/L Alkaline Phosphatase (38-126) U/L Troponin I 0.023 (0.01-0.034) ng/mL NT-Pro-B Natriuret Pep (<450) pg/mL Total Protein (6.3-8.2) g/dL Albumin (3.5-5.0) g/dL Globulin (1.7-4.1) g/dL Albumin/Globulin Ratio (1.0-2.8) SARS-CoV-2 (PCR) (Negative) Influenza A (RT-PCR) (NEGATIVE) Influenza B (RT-PCR) (NEGATIVE) RSV (PCR) (Negative) Imaging Data Chest x-ray: Radiologist's Impression: [address] [address] XRay Report Signed Patient: Apple Juarez MR#: [id number] : 1940 Acct:[id number] Age/Sex: 84 / F Date of Service: 02/17/25 Loc: ED Accession Number: [id number] Procedure: XR chest 1V Ordering Provider: Alonzo Madrigal MD PROCEDURE: XR CHEST 1V INDICATIONS: Shortness of breath TECHNIQUE: One view of the chest was acquired. COMPARISON: [facility], CR, XR CHEST 1V, 12/22/2024, 11:00. [facility], CR, XR CHEST 1V, 12/27/2024, 8:16. [facility], CR, XR CHEST 1V, 02/03/2025, 17:26. FINDINGS: Surgical changes and devices: Left-sided cardiac pacemaker. Lungs and pleura: Lungs are clear. No pleural effusions or pneumothorax. Stable changes of hyperaeration and flattening of the hemidiaphragms compatible with chronic obstructive pulmonary physiology. Left nipple shadow projects over the left lower lung zone. Mediastinum: Mediastinal contours appear normal. Heart size is normal. Bones and chest wall: No suspicious bony lesions. Overlying soft tissues appear unremarkable. IMPRESSION: Stable radiographic evaluation of the chest without acute cardiopulmonary abnormalities or focal consolidation. Changes compatible with chronic obstructive pulmonary physiology. Dictated by: Ean Calderon M.D. on 02/17/2025 at 20:36 Approved by: Ean Calderon M.D. on 02/17/2025 at 20:44 ECG Data Attestation: I personally reviewed and interpreted this ECG as follows: Interpretation: Normal sinus rhythm with rate of 77. Left bundle branch block pattern noted. MA 158, QRS 150, QTC 506. MDM Narrative Medical decision making narrative: 84-year-old female with history of COPD with recent increased cough productive of clear sputum, increasing shortness of breath last couple of days, arrived by EMS, albuterol given during transport, no steroids, feels less short of breath. 95% room air saturation however she does desaturate with moving and flat surfaces. IV Solu-Medrol. Additional bronchodilator DuoNeb ordered. Chest x- ray, labs pending. COVID/flu swab sent. EKG shows sinus rhythm, left bundle branch block. Chest x-ray no acute changes. Troponin negative. Patient reportedly felt better and wanted to go home, emergencies concurrent, left the department without discharge instruction. Eloped. Prednisone prescription sent retrospectively to her pharmacy. Discharge Plan Departure Patient Disposition: Elopement Clinical Impression: Left against medical advice, Shortness of Breath Prescriptions: New prednisone 20 mg tablet 40 mg PO DAILY 5 Days Qty: 10 0RF No Action carvedilol 3.125 mg tablet See Rx Instructions .ROUTE .COMPLEX Qty: 180 2RF Dose Instruction: TAKE ONE TABLET BY MOUTH TWICE DAILY WITH FOOD Rx Instructions: TAKE ONE TABLET BY MOUTH TWICE DAILY WITH FOOD bupropion HCl 150 mg tablet sustained-release 12 hr 150 mg PO DAILY Qty: 90 1RF gabapentin 300 mg capsule 300 mg PO ONCE PM Qty: 90 1RF cyproheptadine 4 mg tablet 4 mg PO BID Qty: 180 2RF clopidogrel 75 mg tablet 75 mg PO DAILY Qty: 90 3RF atorvastatin 80 mg tablet 80 mg PO BEDTIME Qty: 90 3RF albuterol sulfate 2.5 mg /3 mL (0.083 %) solution for nebulization 2.5 mg inhalation Q4-6H PRN (Reason: shortness of breath or wheezing) Qty: 75 0RF prednisone 10 mg tablet 10 mg PO DAILY Qty: 5 0RF diclofenac sodium [Voltaren Arthritis Pain] 1 % gel 2 g topical QID Qty: 100 5RF Rx Instructions: apply to single elbow, wrist or hand; for hand includes palm/fingers/back of hand estradiol 0.01 % (0.1 mg/gram) cream 0.25 appful vaginal BEDTIME Qty: 42.5 3RF Rx Instructions: Apply small amount with finger to vaginal opening and labia at bedtime for 2 weeks, then twice weekly thereafter (DME) contour plus See Rx Instructions .Route .MEDSUPPLY Qty: 28 12RF Rx Instructions: incontinence ultimate bladder pads. medline furosemide [Lasix] 20 mg tablet 20 mg PO DAILY Qty: 3 0RF benzonatate 100 mg capsule 100 mg PO TID PRN (Reason: cough) Qty: 20 0RF methylprednisolone [Medrol (Jermaine)] 4 mg tablets,dose pack See Rx Instructions .ROUTE .COMPLEX Qty: 21 0RF Rx Instructions: orally per package directions albuterol sulfate 90 mcg/actuation aerosol powdr breath activated 2 inh inhalation Q6H PRN (Reason: shortness of breath) Qty: 1 2RF Referrals: Mir Bingham, [Primary Care Provider, [facility]]
[2025-02-17 20:20] LABS: NT-proBNP (BNP-Adult 18+) 864 pg/mL (<450); Troponin I 0.025 ng/mL (0.01-0.034)
[2025-02-17] MEDS: methylPREDNISolone 125 MG/2 ML VIAL IV (20:28)
[2025-02-17] MEDS: ALBUTEROL 2.5 MG/3 ML NEB (ADULT) INH (20:28)
[2025-02-17 20:57] LABS: Influenza A - CEPHEID Flu A NEGATIVE (NEGATIVE); Influenza B - CEPHEID Flu B NEGATIVE (NEGATIVE); Respiratory Syncytial Virus Negative (Negative)
[2025-02-17 20:58] LABS: COVID-19 CEPHEID 4-PLEX PCR Negative (Negative)
[2025-02-17 21:35] LABS: Reflexed Lactate in 2 Hours Y
[2025-02-17 22:03] LABS: Lactate 2HR (Lactic Acid Rflx) 1.3 mmol/L (0.7-2.1)
[2025-02-17 22:42] LABS: Troponin I 0.023 ng/mL (0.01-0.034)
--- NOTE | 2025-02-18 00:34 | PC.NURSE ---
Provider unable to get into room to discharge patient, she decided to leave. Pt eloped from the department.
== END 2025-02-18 00:25 | disposition left against medical advice (07) ==
PROVIDERS: Emergency Provider Emergency Medicine; PCP Family Medicine
DX: R06.02 Shortness of breath (principal)
CPT/HCPCS: 0241U; 36415; 71045; 80053; 83605; 83880; 84484; 85025; 85610; 93005; 96374; 99284; J2919; J7613

== ENCOUNTER 2025-03-10 11:25 | Emergency (ER) | payer MEDICARE, SELFPAY ==
[2024-07-18 14:03] VITALS: BMI 21.0
[2025-03-10 11:30] VITALS: PULSE 85; RESP 18; O2SAT 94
[2025-03-10 11:32] VITALS: BP 165/86; PULSE 88; RESP 20; TEMP 36.6; O2SAT 95; BMI 20.3
--- NOTE | 2025-03-10 11:40 | EKG_ITS ---
[address] [address] Test Date: 2025-03-10 Pat Name: Apple Juarez Department: Room: Gender: Female Vat Cleaner: LAVERN : 1940 Requested By: Order Number: [id number] Reading MD: Thanh Carpenter MD Measurements Intervals [place] Rate: 86 P: 80 IA: 154 QRS: -44 QRSD: 142 T: 86 QT: 420 QTc: 502 Interpretive Statements Normal sinus rhythm Right atrial enlargement Left axis deviation Left bundle branch block NO SIGNIFICANT CHANGE FROM PRIOR TRACING Electronically Signed On 03-11-2025 7:43:02 PDT by Thanh Carpenter MD
--- NOTE | 2025-03-10 11:46 | ED_ITS ---
HPI - SOB/Dyspnea General Chief Complaint: Shortness of Breath/Dyspnea Stated Complaint: difficulty breathing Time Seen by Provider: 03/10/25 11:39 Source: patient and EMS Mode of arrival: EMS Limitations: no limitations History of Present Illness HPI Narrative: 84-year-old female history of COPD no home O2 use, does have inhalers and nebulizer at home presented this morning with increased shortness of breath. Luanne garcias has not use her home nebulizer although she states that she does have all of her medications and everything available. She thinks that is probably she was more short of breath secondary to her usual disease in the house has a little bit warmer than typical with the summer weather. Patient states she has not been on any oral steroids recently. She denies fevers, denies chest pain, received DuoNeb EN route with the EMS states she feels much better we would like to return home. She denies any nausea or vomiting. No other GI or urinary symptoms. No syncope. She was alert, oriented and breathing without issue. She does take medication for hypertension, dyslipidemia, Plavix states she was what sounds like an albuterol inhaler does not sound like she uses a steroid inhaler daily although she was unsure. She denies any prior heart or lung surgeries. States she was some allergies to antibiotics but does not recall which ones, does use tobacco daily has not had any today. No alcohol, no recreational drugs. Dr. Bingham is her primary care physician. Dr. Calderon is her business services tech. Patient arrived via EMS, grandson is in the department with her on arrived shortly after she arrived. Related Data Previous Rx's ?Medication ?Instructions ?Recorded diclofenac sodium 1 % topical gel 2 g topical QID #100 grams 03/17/22 (Voltaren Arthritis Pain) contour plus #28 ea 05/26/22 bupropion HCl 150 mg tablet,12 hr 150 mg PO DAILY #90 tabs 05/15/24 sustained-release carvedilol 3.125 mg tablet See Rx Instructions .Route 05/15/24 .COMPLEX #180 tabs gabapentin 300 mg capsule 300 mg PO ONCE PM #90 caps 0 05/15/24 estradiol 0.01% (0.1 mg/gram) 0.25 appful vaginal BEDT FLOR #42.5 06/11/24 vaginal cream grams cyproheptadine 4 mg tablet 4 mg PO BID #180 tabs 08/11 clopidogrel 75 mg tablet 75 mg PO DAILY #90 tabs 08/10 06/03 atorvastatin 80 mg tablet 80 mg PO BEDTIME #90 tabs albuterol sulfate 2.5 mg/3 mL 2.5 mg (3 mL) inhalation Q4-6H PRN 02/20/25 (0.083 %) solution for nebulization shortness of breat h or wheezing #75 mL albuterol sulfate 90 mcg/actuation 2 inh inhalation Q6 H PRN shortness 02/20/25 breath activated powder inhaler of breath #1 ea benzonatate 100 mg capsule 100 mg PO TID PRN cough #20 caps 02/20/25 fesoterodine 4 mg tablet,extended 4 mg PO DAILY #90 ta bs 02/20/25 release 24 hr (Toviaz) fluticasone 250 mcg-salmeterol 50 1 inh inhalation BID #60 ea 02/20/25 mcg/dose blistr powdr for inhalation (Advair Diskus) triamterene 37.5 0.5 tab PO DAILY #45 tabs mg-hydrochlorothiazide 25 mg tablet mirabegron 25 mg tablet,extended 25 mg PO DAILY #30 ta bs 03/02/25 release 24 hr (Myrbetriq) Allergies Allergy/AdvReac Type Severity Reaction Status Date / Time latex (LATEX) Allergy Mild Verified 03/10/25 11:32 amoxicillin (AMOXICILLIN) Allergy Unknown Verified 03/10/25 11:32 levofloxacin (LEVOFLOXACIN) Allergy Unknown Verified 03/10/25 11:32 niacin Allergy Unknown Verified 03/10/25 11:32 sulfamethoxazole (From Allergy Unknown Verified 03/10/25 11:32 Bactrim) tobramycin Allergy Unknown Verified 03/10/25 11:32 trimethoprim (From Bactrim) Allergy Unknown Verified 03/10/25 11:32 varenicline (From Chantix) Allergy Unknown Verified 03/10/25 11:32 Review of Systems Review of Systems ROS Unobtainable: All systems reviewed & are unremarkable except as noted in HPI and below Patient History Medical History Incomplete bladder emptying ARF (acute renal failure) Cat bite of forearm Carotid artery disease Mobitz type 2 second degree AV block CHF (congestive heart failure) Ganglion cyst COPD (chronic obstructive pulmonary disease) Hypertension Depression Vision disorder Psoriasis (~1999) Acne Fibromyalgia Chronic back pain Measles Chicken pox Herpes (~1999) Fibroids Endometriosis History of urinary incontinence Irritable bowel syndrome Diverticular disease Colon polyps Ischemic colitis Surgical History Anesthesia History of tonsillectomy History of appendectomy History of bilateral oophorectomies H/O: hysterectomy Pacemaker Family History Father Diabetes mellitus Mother Diabetes mellitus Brother Diabetes mellitus Sister Stroke Social History marital status: number of children: 3 household members: family and none lives independently: Yes Smoking Status: Former smoker alcohol intake: current substance use type: does not use Smoking Status: Former smoker tobacco type: cigarettes alcohol intake frequency: holidays/special occasions only Exam Narrative Exam Narrative: GENERAL: Alert and oriented x three, thin elderly female in mild distress HEENT: Head normocephalic, atraumatic, EOMI, pupils reactive, face symmetric, moist mucous membranes NECK: Supple, full range of motion CARDIOVASCULAR: Regular rate and rhythm without murmurs, rubs or gallops. No JVD. No edema in bilateral lower extremities. RESPIRATORY: Breath sounds equal bilaterally, no wheezes rales or rhonchi. No tachypnea, no accessory muscle use. ABDOMEN: Soft, nontender. Normoactive bowel sounds all 4 quadrants. No guarding or rebound, rigidity, no mass : No CVA tenderness EXTREMITIES: Normal range of motion, no clubbing or edema. Neurovascularly intact NEUROLOGICAL: Cranial nerves II through XII grossly intact. Moving all ext remities SKIN: Warm, dry, no petechiae, no rashes or lesions. Initial Vital Signs Initial Vital Signs: Vital Signs Pulse Rate 85 03/10/25 11:30 Respiratory Rate 18 03/10/25 11:30 Pulse Oximetry 94 03/10/25 11:30 Course Vital Signs Vital signs: Vital Signs - 8 hr 03/10/25 11:30 03/10/25 11:32 Temperature 97.8 F Pulse Rate 85 88 Respiratory Rate 18 20 Blood Pressure 165/86 H Pulse Oximetry 94 95 Oxygen Delivery Method Room Air MDM - SOB/Dyspnea ECG Data Attestation: I personally reviewed and interpreted this ECG as follows: Prior ECG tracings: available for review Interpretation: Sinus rhythm, right atrial enlargement left axis deviation left bundle-branch block rate 86 WI 154 QRS of 142 QTC of 502, lead V4 is elevated in comparison to prior no other acute ST changes appreciated. [facility] Narrative Medical decision making narrative: 84-year-old female with complaint of shortness of breath. Patient has known COPD did not use her home medications this morning received a DuoNeb with EMS which she found very helpful. Upon arrival she was much improved and states she feels back to her baseline overall. She would have an EKG which shows sinus rhythm left axis deviation left bundle-branch block with some nonspecific change. Patient does not wish for additional workup she does not wish for labs, chest x-ray or further evaluation. She was on states that she does not feel that she needs any steroids at this time. She desires discharge home. She was alert, appropriate and appears competent to make this decision. Grandson agrees with the plan. Did review patient states she does not need any refills of her medications, all of her equipment is working properly she states she just did not use it this morning. Discharge Plan Departure Patient Disposition: Home Clinical Impression: COPD exacerbation Activity Restrictions/Additional Instructions: Follow up with your physician as needed. You can return to the emergency department at any time if you have new or worsening symptoms. Please make sure to use your home medications. Prescriptions: No Action carvedilol 3.125 mg tablet See Rx Instructions .ROUTE .COMPLEX Qty: 180 2RF Dose Instruction: TAKE ONE TABLET BY MOUTH TWICE DAILY WITH FOOD Rx Instructions: TAKE ONE TABLET BY MOUTH TWICE DAILY WITH FOOD bupropion HCl 150 mg tablet sustained-release 12 hr 150 mg PO DAILY Qty: 90 1RF gabapentin 300 mg capsule 300 mg PO ONCE PM Qty: 90 1RF cyproheptadine 4 mg tablet 4 mg PO BID Qty: 180 2RF clopidogrel 75 mg tablet 75 mg PO DAILY Qty: 90 3RF atorvastatin 80 mg tablet 80 mg PO BEDTIME Qty: 90 3RF mirabegron [Myrbetriq] 25 mg tablet extended release 24 hr 25 mg PO DAILY Qty: 30 2RF diclofenac sodium [Voltaren Arthritis Pain] 1 % gel 2 g topical QID Qty: 100 5RF Rx Instructions: apply to single elbow, wrist or hand; for hand includes palm/fingers/back of hand estradiol 0.01 % (0.1 mg/gram) cream 0.25 appful vaginal BEDTIME Qty: 42.5 3RF Rx Instructions: Apply small amount with finger to vaginal opening and labia at bedtime for 2 weeks, then twice weekly thereafter (DME) contour plus See Rx Instructions .Route .MEDSUPPLY Qty: 28 12RF Rx Instructions: incontinence ultimate bladder pads. medline albuterol sulfate 90 mcg/actuation aerosol powdr breath activated 2 inh inhalation Q6H PRN (Reason: shortness of breath) Qty: 1 8RF albuterol sulfate 2.5 mg /3 mL (0.083 %) solution for nebulization 2.5 mg inhalation Q4-6H PRN (Reason: shortness of breath or wheezing) Qty: 75 8RF fluticasone propion-salmeterol [Advair Diskus] 250-50 mcg/dose blister with device 1 inh inhalation BID Qty: 60 5RF benzonatate 100 mg capsule 100 mg PO TID PRN (Reason: cough) Qty: 20 2RF fesoterodine [Toviaz] 4 mg tablet extended release 24 hr 4 mg PO DAILY Qty: 90 1RF triamterene-hydrochlorothiazid 37.5-25 mg tablet 0.5 tab PO DAILY Qty: 45 1RF Referrals: Mir Bingham DO [Primary Care Provider, Family Practice] Stand Alone Forms: Patient Portal/API
== END 2025-03-10 12:06 | disposition home or self-care (01) ==
PROVIDERS: Emergency Provider Emergency Medicine; PCP Family Medicine
DX: J44.1 Chronic obstructive pulmonary disease with (acute) exacerbation (principal); I44.7 Left bundle-branch block, unspecified; Z87.891 Personal history of nicotine dependence
CPT/HCPCS: 93005; 93010; 99281; 99283

== ENCOUNTER 2025-06-03 17:21 | Emergency (ER) | payer MEDICARE, SELFPAY ==
[2024-07-18 14:03] VITALS: BMI 21.0
[2025-06-03 17:25] VITALS: BP 161/88; PULSE 88; RESP 17; TEMP 36.6; O2SAT 95
--- NOTE | 2025-06-03 17:25 | DI.RAD.S_ITS ---
PROCEDURE: XR CHEST 1V INDICATIONS: Chest Pain TECHNIQUE: One view of the chest was acquired. COMPARISON: [facility], CR, XR CHEST 1V, 04/22/2025, 5:27. [facility], CR, XR CHEST 1V, 02/17/2025, 19:56. FINDINGS: Surgical changes and devices: Stable cardiac conduction device Lungs and pleura: Ill-defined increased density in the right upper lung. Advanced COPD Mediastinum: Mediastinal contours appear normal. Heart size is normal. Bones and chest wall: No suspicious bony lesions. Overlying soft tissues appear unremarkable. IMPRESSION: Possible developing right upper lobe mass or consolidation, short-term follow-up erect PA and lateral views or CT may be obtained. Dictated by: Beny Herron M.D. on 06/03/2025 at 18:40 Approved by: Beny Herron M.D. on 06/03/2025 at 18:41
[2025-06-03 17:36] LABS: Add Manual Diff / Slide Review NO; Hematocrit 33.1 % (36-46); Hemoglobin 11.0 g/dL (12.0-16.0); Lymphocytes Absolute Auto 1600 /uL (1100-4500); Mean Corpuscular HGB Conc 33.2 % (30-36); Mean Corpuscular Hemoglobin 27.2 PG (26-34); Mean Corpuscular Volume 82.0 fL (80-100); Platelet Count 263 X10^3/uL (150-400)
--- NOTE | 2025-06-03 17:40 | EKG_ITS ---
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
[2025-06-03 17:42] LABS: INR 0.9 (0.9-1.3); Prothrombin Time 10.6 SECONDS (9.4-12.5)
[2025-06-03 17:44] LABS: PTT Partial Thromboplastin Tim 27 SECONDS (25.1-36.5)
[2025-06-03 17:46] LABS: Alanine Aminotransferase 16 IU/L (<35); Albumin 3.9 g/dL (3.5-5.0); Albumin Globulin Ratio 1.3 (1.0-2.8); Alkaline Phosphatase 116 U/L (38-126); Blood Urea Nitrogen 29 mg/dL (7-17); Calcium 9.0 mg/dL (8.4-10.2); Carbon Dioxide 30 mmol/L (22-32); Chloride 105 mmol/L (98-107); Creatine Kinase 38 U/L (30-135); Estimated Glomerular Filt Rate 55 mL/min (>60); Globulin 3.0 g/dL (1.7-4.1); Glucose 109 mg/dL (70-99); HEMOLYSIS < 15 (0-50); Lipase 109 U/L (23-300); Magnesium 1.9 mg/dL (1.6-2.3); Potassium 3.4 mmol/L (3.4-5.1); Sodium 138 mmol/L (137-145); Total Protein 6.9 g/dL (6.3-8.2)
[2025-06-03 17:57] LABS: NT-proBNP (BNP-Adult 18+) 390 pg/mL (<450); Troponin I 0.013 ng/mL (0.01-0.034)
[2025-06-03 18:30] VITALS: BP 175/85; PULSE 90; RESP 17; O2SAT 94
--- NOTE | 2025-06-03 18:40 | ED.WEAKNESS ---
HPI - Weakness General Chief complaint: Weakness Stated complaint: Generalized weakness Time Seen by Provider: 06/03/25 17:53 Source: patient and EMS Mode of arrival: EMS History of Present Illness HPI Narrative: If patient is an 84-year-old female history of COPD, CHF hypertension chronic back pain presenting today with generalized weakness. She reports that she was weak yesterday today she is not sure if she has eaten anything. 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 No fever no chills no cough. She denies any abdominal pain nausea or vomiting. She just says that she is so weak she can not get out of bed. She has not fallen she is not on any anticoagulation. Related Data Previous Rx's ?Medication ?Instructions ?Recorded diclofenac sodium 1 % topical gel 2 g topical QID #100 grams 03/17/22 (Voltaren Arthritis Pain) contour plus #28 ea 05/26/22 cyproheptadine 4 mg tablet 4 mg PO BID #180 tabs 08/11/24 atorvastatin 80 mg tablet 80 mg PO BEDTIME #90 tabs 10/02/24 albuterol sulfate 2.5 mg/3 mL 2.5 mg (3 mL) inhalation Q4-6H PRN 02/20/25 (0.083 %) solution for nebulization shortness of breath or wheezing #75 mL benzonatate 100 mg capsule 100 mg PO TID PRN cough #20 caps 02/20/25 fesoterodine 4 mg tablet,extended 4 mg PO DAILY #90 tabs 02/20/25 release 24 hr (Toviaz) prednisone 20 mg tablet 40 mg (2 x 20 mg) PO DAILY #10 tabs 04/07/25 bupropion HCl 150 mg tablet,12 hr 150 mg PO DAILY #90 tabs 04/08/25 sustained-release gabapentin 300 mg capsule 300 mg PO ONCE PM #90 caps 04/08/25 fluticasone 250 mcg-salmeterol 50 1 inh inhalation BID #60 ea 04/22/25 mcg/dose blistr powdr for inhalation albuterol sulfate 90 mcg/actuation 2 inh inhalation Q6H PRN shortness 05/15/25 breath activated powder inhaler of breath #1 ea carvedilol 3.125 mg tablet See Rx Instructions .Route 05/15/25 .COMPLEX #180 tabs clopidogrel 75 mg tablet 75 mg PO DAILY #90 tabs 05/15/25 estradiol 0.01% (0.1 mg/gram) 0.25 appful vaginal BEDTIME #42.5 05/15/25 vaginal cream grams mirabegron 25 mg tablet,extended 25 mg PO DAILY #90 tabs 05/15/25 release 24 hr (Myrbetriq) triamterene 37.5 0.5 tab PO DAILY #45 tabs 05/15/25 mg-hydrochlorothiazide 25 mg tablet fluticasone 250 mcg-salmeterol 50 1 inh inhalation BID #60 ea 05/19/25 mcg/dose blistr powdr for inhalation (Advair Diskus) Allergies Allergy/AdvReac Type Severity Reaction Status Date / Time latex (LATEX) Allergy Mild Verified 06/03/25 17:36 amoxicillin (AMOXICILLIN) Allergy Unknown Verified 06/03/25 17:36 levofloxacin (LEVOFLOXACIN) Allergy Unknown Verified 06/03/25 17:36 niacin Allergy Unknown Verified 06/03/25 17:36 sulfamethoxazole (From Allergy Unknown Verified 06/03/25 17:36 Bactrim) tobramycin Allergy Unknown Verified 06/03/25 17:36 trimethoprim (From Bactrim) Allergy Unknown Verified 06/03/25 17:36 varenicline (From Chantix) Allergy Unknown Verified 06/03/25 17:36 Patient History Medical History Incomplete bladder emptying ARF (acute renal failure) Cat bite of forearm Carotid artery disease Mobitz type 2 second degree AV block CHF (congestive heart failure) Ganglion cyst COPD (chronic obstructive pulmonary disease) Hypertension Depression Vision disorder Psoriasis (~1999) Acne Fibromyalgia Chronic back pain Measles Chicken pox Herpes (~1999) Fibroids Endometriosis History of urinary incontinence Irritable bowel syndrome Diverticular disease Colon polyps Ischemic colitis Surgical History Anesthesia History of tonsillectomy History of appendectomy History of bilateral oophorectomies H/O: hysterectomy Pacemaker Family History Father Diabetes mellitus Mother Diabetes mellitus Brother Diabetes mellitus Sister Stroke Social History marital status: number of children: 3 household members: family and none lives independently: Yes alcohol intake: current substance use type: does not use tobacco type: cigarettes alcohol intake frequency: holidays/special occasions only Exam Initial Vital Signs Initial Vital Signs: Vital Signs Temperature 98 F 06/03/25 17:25 Pulse Rate 88 06/03/25 17:25 Respiratory Rate 17 06/03/25 17:25 Blood Pressure 161/88 H 06/03/25 17:25 Pulse Oximetry 95 06/03/25 17:25 Oxygen Delivery Method Room Air 06/03/25 17:25 GENERAL: Alert well-appearing 84-year-old female and in [no acute] distress. HEENT: Head atraumatic,EOMI, pupils reactive, face symmetric, [moist] mucous membranes CARDIOVASCULAR: Regular rate and rhythm without murmurs, rubs or gallops. RESPIRATORY: Breath sounds equal bilaterally, no wheezes rales or rhonchi. ABDOMEN: Soft, nontender. Normoactive bowel sounds all 4 quadrants. No guarding or rebound. EXTREMITIES: Normal range of motion, no clubbing or edema. Neurovascularly intact NEUROLOGICAL: Alert and oriented x4.Normal gait and speech. Cranial nerves II through XII grossly intact. Moving all extremities SKIN: Warm, dry, no laceration, no petechiae, no rashes or lesions. Course Orders Ordered: ED Orders 06/03/25 17:25 XR chest 1V Stat Complete Blood Count AUTO DIFF Stat Comprehensive Metabolic Panel Stat Lipase Stat Magnesium Stat NT-proBNP (BNP-Adult 18+) Stat PTT Partial Thromboplastin Salazar Stat Prothrombin Time INR Stat Troponin & CK Cardiac Panel Stat EKG-12 Lead Stat 06/03/25 19:00 CT chest w con Stat COVID19 -Nasal RAPID Stat 06/03/25 19:39 Trop I [Troponin I] Stat Vital Signs Vital signs: Vital Signs - 8 hr 06/03/25 18:30 06/03/25 19:38 06/03/25 21:42 Temperature 98.4 F Pulse Rate 90 79 91 H Respiratory Rate Blood Pressure 175/85 H 168/79 H 153/72 H Pulse Oximetry 94 98 95 Oxygen Delivery Method Room Air Room Air Room Air MDM - Weakness Lab Data 06/03/25 17:25 06/03/25 17:25 Labs: Lab Results 06/03/25 06/03/2525 Range/Units 17:25 19:00 19:39 WBC 7.8 (4.5-11.0) X10^3/uL RBC 4.04 (4.0-5.2) X10^6/uL Hgb 11.0 L (12.0-16.0) g/dL Hct 33.1 L (36-46) % MCV 82.0 (80-100) fL MCH 27.2 (26-34) PG MCHC 33.2 (30-36) % RDW 16.9 H (11.6-14.8) % Plt Count 263 (150-400) X10^3/uL Neut % (Auto) 66.3 (50-75) % Lymph % (Auto) 21.1 L (25-40) % Isabela % (Auto) 8.0 (3-14) % Eos % (Auto) 3.6 (2-4) % Baso % (Auto) 1.0 (0-2) % Neut # (Auto) 5100 (3976-9434) /uL Lymph # (Auto) 1600 (5143-8419) /uL Isabela # (Auto) 600 (0-900) /uL Eos # (Auto) 300 (0-450) /uL Baso # (Auto) 100 (0-100) /uL PT 10.6 (9.4-12.5) SECONDS INR 0.9 (0.9-1.3) APTT 27 (25.1-36.5) SECONDS Sodium 138 (137-145) mmol/L Potassium 3.4 (3.4-5.1) mmol/L Chloride 105 (98-107) mmol/L Carbon Dioxide 30 (22-32) mmol/L BUN 29 H (7-17) mg/dL Creatinine 1.02 (0.52-1.04) mg/dL Estimated GFR 55 L (>60) mL/min BUN/Creatinine Ratio 28.4 H (6-22) Glucose 109 H (70-99) mg/dL Calcium 9.0 (8.4-10.2) mg/dL Magnesium 1.9 (1.6-2.3) mg/dL Total Bilirubin 0.5 (0.2-1.3) mg/dL AST 28 (14-36) IU/L ALT 16 (<35) IU/L Alkaline Phosphatase 116 (38-126) U/L Total Creatine Kinase 38 (30-135) U/L Troponin I 0.013 0.013 (0.01-0.034) ng/mL NT-Pro-B Natriuret Pep 390 (<450) pg/mL Total Protein 6.9 (6.3-8.2) g/dL Albumin 3.9 (3.5-5.0) g/dL Globulin 3.0 (1.7-4.1) g/dL Albumin/Globulin Ratio 1.3 (1.0-2.8) Lipase 109 (23-300) U/L SARS-CoV-2 (PCR) Negative (Negative) Imaging Data Chest x-ray: Radiologist Impression: PROCEDURE: XR CHEST 1V INDICATIONS: Chest Pain TECHNIQUE: One view of the chest was acquired. COMPARISON: [facility], CR, XR CHEST 1V, 04/22/2025, 5:27. [facility], CR, XR CHEST 1V, 02/17/2025, 19:56. FINDINGS: Surgical changes and devices: Stable cardiac conduction device Lungs and pleura: Ill-defined increased density in the right upper lung. Advanced COPD Mediastinum: Mediastinal contours appear normal. Heart size is normal. Bones and chest wall: No suspicious bony lesions. Overlying soft tissues appear unremarkable. IMPRESSION: Possible developing right upper lobe mass or consolidation, short-term follow-up erect PA and lateral views or CT may be obtained. Dictated by: Beny Herron M.D. on 06/03/2025 at 18:40 CT scan - chest: Radiologist Impression: PROCEDURE: CT CHEST W CON INDICATIONS: right upper lobe mass TECHNIQUE: After the administration of intravenous contrast, 5 mm thick sections acquired from the pulmonary apices to the posterior costophrenic angles. 1 mm axial lung, 5 mm thick coronal and sagittal reformats and 7 mm axial MIP were acquired. For radiation dose reduction, the following was used: automated exposure control, adjustment of mA and/or kV according to patient size. COMPARISON: [facility], CR, XR CHEST 1V, 06/03/2025, 17:38. On the [facility], CT, CT CHEST ABD PEL W CON, 10/25/2020, 20:11. FINDINGS: Image quality: Diagnostic. Lower Neck: No enlarged lymph nodes. Thyroid: No thyroid nodules which require sonographic follow up, per consensus guidelines. Axillae: No enlarged lymph nodes. Chest Wall: Unremarkable. Bones: Unremarkable. Lungs and Pleura: No pneumothorax or pleural effusions. Extensive changes of pulmonary emphysema, marked in the bases suggesting possible alpha 1 antitrypsin deficiency. A somewhat thick-walled cavitary lesion in the right upper lobe appears stable. This does not correspond to the area of concern on the chest x-ray. The cavitary lesion on previous image 77 of series 3 measured approximately 3.4 x 2.5 cm. On current image 69 of series 3 it measures 3.7 x 2.4 cm. There is a new spiculated lesion in the left apex which previously had very minimal ground-glass opacity. It has a small central cavity. It measures approximately 1.4 cm on axial image 51 of series 3. This lesion is not visible on the chest film from today. It is suspicious for bronchogenic carcinoma. Heart: Heart size is normal. No pericardial effusion. Pacemaker. Thoracic Vessels: The aorta and pulmonary arteries demonstrate normal size. Mediastinum and Dorothea: No enlarged lymph nodes. Esophagus: No wall thickening. No hiatal hernia. Upper Abdomen: Visualized upper abdomen solid organs and bowel loops appear normal. IMPRESSION: 1. Advanced emphysematous change. The bibasilar predominance raises the question of alpha 1 antitrypsin deficiency. 2. There is no suspicious lesion in the area noted on the chest film in the right apex. 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 Comment: Consider nonemergent PET-CT for further evaluation. Dictated by: Mike Sher M.D. on 06/03/2025 at 19:55 ECG Data Attestation: I personally reviewed and interpreted this ECG as follows: Prior ECG tracings: available for review Interpretation: Sinus rhythm rate 85 [place] interval 170 QRS 152 QTC [address]-depression in lead 2, AVF no ST-elevation EKGs looks very similar to prior EKGs in 04/22/2025 MDM Narrative Medical decision making narrative: MDM CC: Weakness Complicating co-morbidities: Data collected from: Medical records reviewed: Previous ED visit for COPD exacerbation out of inhaler Differential considered: Exam documented above, pertinent findings include: Patient appears well she sitting up eating turkey and egg salad sandwich she is not on oxygen lung sounds are slightly diminished but no respiratory distress no evidence of lower extremity edema at abdomen is Lab Test results independently reviewed as above. Pertinent findings: CBC no leukocytosis no anemia CMP no electrolyte abnormality no ELIZABETH glucose is 109 Troponin 0.013 x 2 BNP 390 Bilirubin liver enzymes within normal limits Independently reviewed EKG as above Sinus rhythm persistent ST depression no new changes similar to previous EKGs Imaging studies independently reviewed: Chest x-ray possible right upper lobe mass or consolidation need close outpatient follow up, prior chest x-ray in April shows probable right upper lung scarring, actually multiple chest x-rays show the same. She did have a chest abdomen pelvis CT in 2020 which did not, and a right upper lobe mass but did mention a pneumatocele Chest CT advanced emphysema changes bibasilar prominence raises question of alpha 1 antitrypsin deficiency. 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 She has ambulated in the emergency department. Discussion: At this time patient is eating she is not hypoxic vitals are stable blood work is overall reassuring. Chest CT does show questionable left apex 1.4 carcinoma. Patient feels well now. no cause for weakness found she ambulated in the ED without difficulty. At this time does not meet admission criteria. She is made aware of left lung finding. She certainly has a risk for lung cancer due to smoking recommend outpatient follow up at this time, unlikely causing her symptoms. Discharge Plan Departure Patient Disposition: Home Clinical Impression: Mass of left lung, Weakness Instructions: DI for Fatigue Activity Restrictions/Additional Instructions: *You have been diagnosed with left lung mass, weakness *What to do: At this time no cause for her weakness is found. You incidentally have been found left-sided lung mass. This will need to be followed by your primary care provider with possible biopsy or further monitoring *Continue to take medicatio ns as directed *Follow up with your primary care provider in 2-3 days or call [phone] *Return to ER if you should have increasing weakness chest pain confusion shortness of breath or any new, worsening or concerning symptoms Prescriptions: No Action cyproheptadine 4 mg tablet 4 mg PO BID Qty: 180 2RF atorvastatin 80 mg tablet 80 mg PO BEDTIME Qty: 90 3RF prednisone 20 mg tablet 40 mg PO DAILY Qty: 10 0RF bupropion HCl 150 mg tablet sustained-release 12 hr 150 mg PO DAILY Qty: 90 1RF gabapentin 300 mg capsule 300 mg PO ONCE PM Qty: 90 1RF fluticasone propion-salmeterol [Advair Diskus] 250-50 mcg/dose blister with device 1 inh inhalation BID Qty: 60 5RF diclofenac sodium [Voltaren Arthritis Pain] 1 % gel 2 g topical QID Qty: 100 5RF Rx Instructions: apply to single elbow, wrist or hand; for hand includes palm/fingers/back of hand triamterene-hydrochlorothiazid 37.5-25 mg tablet 0.5 tab PO DAILY Qty: 45 3RF mirabegron [Myrbetriq] 25 mg tablet extended release 24 hr 25 mg PO DAILY Qty: 90 3RF estradiol 0.01 % (0.1 mg/gram) cream 0.25 appful vaginal BEDTIME Qty: 42.5 3RF Rx Instructions: Apply small amount with finger to vaginal opening and labia at bedtime for 2 weeks, then twice weekly thereafter clopidogrel 75 mg tablet 75 mg PO DAILY Qty: 90 3RF carvedilol 3.125 mg tablet See Rx Instructions .ROUTE .COMPLEX Qty: 180 3RF Dose Instruction: TAKE ONE TABLET BY MOUTH TWICE DAILY WITH FOOD Rx Instructions: TAKE ONE TABLET BY MOUTH TWICE DAILY WITH FOOD albuterol sulfate 90 mcg/actuation aerosol powdr breath activated 2 inh inhalation Q6H PRN (Reason: shortness of breath) Qty: 1 8RF (DME) contour plus See Rx Instructions .Route .MEDSUPPLY Qty: 28 12RF Rx Instructions: incontinence ultimate bladder pads. medline albuterol sulfate 2.5 mg /3 mL (0.083 %) solution for nebulization 2.5 mg inhalation Q4-6H PRN (Reason: shortness of breath or wheezing) Qty: 75 8RF benzonatate 100 mg capsule 100 mg PO TID PRN (Reason: cough) Qty: 20 2RF fesoterodine [Toviaz] 4 mg tablet extended release 24 hr 4 mg PO DAILY Qty: 90 1RF fluticasone propion-salmeterol 250-50 mcg/dose blister with device 1 inh inhalation BID Qty: 60 0RF Referrals: Bingham,Mir T, DO [Primary Care Provider, Family Practice] Stand Alone Forms: Patient Portal/API
--- NOTE | 2025-06-03 19:00 | DI.CT.S_ITS ---
PROCEDURE: CT CHEST W CON INDICATIONS: right upper lobe mass TECHNIQUE: After the administration of intravenous contrast, 5 mm thick sections acquired from the pulmonary apices to the posterior costophrenic angles. 1 mm axial lung, 5 mm thick coronal and sagittal reformats and 7 mm axial MIP were acquired. For radiation dose reduction, the following was used: automated exposure control, adjustment of mA and/or kV according to patient size. COMPARISON: [facility], CR, XR CHEST 1V, 06/03/2025, 17:38. On the [facility], CT, CT CHEST ABD PEL W CON, 10/25/2020, 20:11. FINDINGS: Image quality: Diagnostic. Lower Neck: No enlarged lymph nodes. Thyroid: No thyroid nodules which require sonographic follow up, per consensus guidelines. Axillae: No enlarged lymph nodes. Chest Wall: Unremarkable. Bones: Unremarkable. Lungs and Pleura: No pneumothorax or pleural effusions. Extensive changes of pulmonary emphysema, marked in the bases suggesting possible alpha 1 antitrypsin deficiency. A somewhat thick-walled cavitary lesion in the right upper lobe appears stable. This does not correspond to the area of concern on the chest x-ray. The cavitary lesion on previous image 77 of series 3 measured approximately 3.4 x 2.5 cm. On current image 69 of series 3 it measures 3.7 x 2.4 cm. There is a new spiculated lesion in the left apex which previously had very minimal ground-glass opacity. It has a small central cavity. It measures approximately 1.4 cm on axial image 51 of series 3. This lesion is not visible on the chest film from today. It is suspicious for bronchogenic carcinoma. Heart: Heart size is normal. No pericardial effusion. Pacemaker. Thoracic Vessels: The aorta and pulmonary arteries demonstrate normal size. Mediastinum and Dorothea: No enlarged lymph nodes. Esophagus: No wall thickening. No hiatal hernia. Upper Abdomen: Visualized upper abdomen solid organs and bowel loops appear normal. IMPRESSION: 1. Advanced emphysematous change. The bibasilar predominance raises the question of alpha 1 antitrypsin deficiency. 2. There is no suspicious lesion in the area noted on the chest film in the right apex. 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 Comment: Consider nonemergent PET-CT for further evaluation. Dictated by: Mike Sher M.D. on 06/03/2025 at 19:55 Approved by: Mike Sher M.D. on 06/03/2025 at 20:00
[2025-06-03 19:31] LABS: COVID19 -Nasal RAPID Negative (Negative)
--- NOTE | 2025-06-03 19:35 | EKG_ITS ---
[address] [address] Test Date: 2025-06-03 Pat Name: Apple Juarez Department: Room: Gender: Female Assistant Track Coach: ROSANNA : 1940 Requested By: Order Number: [id number] Reading MD: Thanh Carpenter MD Measurements Intervals [place] Rate: 90 P: 76 MO: 172 QRS: 25 QRSD: 158 T: 97 QT: 422 QTc: 516 Interpretive Statements Sinus rhythm with occasional premature ventricular complexes Left bundle branch block NO SIGNIFICANT CHANGE FROM PRIOR TRACING Electronically Signed On 06-04-2025 16:27:17 PDT by Thanh Carpenter MD
[2025-06-03 19:38] VITALS: BP 168/79; PULSE 79; RESP 17; O2SAT 98
[2025-06-03 20:35] LABS: Troponin I 0.013 ng/mL (0.01-0.034)
[2025-06-03 21:42] VITALS: BP 153/72; PULSE 91; RESP 24; TEMP 36.9; O2SAT 95
== END 2025-06-03 21:44 | disposition home or self-care (01) ==
PROVIDERS: Emergency Medicine; Emergency Provider Emergency Medicine; PCP Family Medicine
DX: R91.8 Other nonspecific abnormal finding of lung field (principal); R53.1 Weakness; J44.9 Chronic obstructive pulmonary disease, unspecified; I50.9 Heart failure, unspecified; I10 Essential (primary) hypertension
CPT/HCPCS: 36415; 71045; 71260; 80053; 82550; 83690; 83735; 83880; 84484; 85025; 85610; 85730; 87635; 93005; 99283; 99284; Q9967

== ENCOUNTER 2025-06-04 17:42 | Observation (INO) | payer MEDICARE, MEDICAID, SELFPAY ==
[2024-07-18 14:03] VITALS: BMI 21.0
[2025-06-04] VITALS (19 sets, daily range): BP systolic 130–185; BP diastolic 62–87; PULSE 87–100; RESP 17–75; TEMP 36.7; O2SAT 83–98; BMI 22.4
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
--- NOTE | 2025-06-04 18:41 | EKG_ITS ---
[place] [address] [place] [id number] Test Date: 2025-06-04 Pat Name: Apple Juarez Department: [facility] Room: Gender: Female Cnc Applications Engineer: [facility] : 1940 Requested By: Order Number: [id number] Reading MD: Thanh Carpenter MD Measurements Intervals [place] Rate: 88 P: 77 IN: 172 QRS: -11 QRSD: 154 T: 97 QT: 430 QTc: 520 Interpretive Statements Normal sinus rhythm Left bundle branch block NO SIGNIFICANT CHANGE FROM PRIOR TRACING Electronically Signed On 06-05-2025 7:10:20 PDT by Thanh Carpenter MD
--- NOTE | 2025-06-04 18:41 | DI.RAD.S_ITS ---
PROCEDURE: XR CHEST 1V INDICATIONS: chest pain TECHNIQUE: One view of the chest was acquired. COMPARISON: [facility], CR, XR CHEST 1V, 06/03/2025, 17:38. [facility], CR, XR CHEST 1V, 04/22/2025, 5:27. FINDINGS: Surgical changes and devices: Stable pacemaker leads Lungs and pleura: Significant COPD again seen. Stable parenchymal scarring in the right upper lobe. Mediastinum: Mediastinal contours appear normal. Heart size is normal. Bones and chest wall: No suspicious bony lesions. Overlying soft tissues appear unremarkable. IMPRESSION: Stable COPD with no new consolidation or pleural effusion. Dictated by: Beny Herron M.D. on 06/04/2025 at 19:58 Approved by: Beny Herron M.D. on 06/04/2025 at 19:59
--- NOTE | 2025-06-04 18:41 | DI.CT.S_ITS ---
PROCEDURE: CT HEAD/BRAIN WO CON INDICATIONS: weakness TECHNIQUE: Noncontrast 4.5 mm thick angled axial sections acquired from the foramen magnum to the vertex, with coronal and sagittal reformats. For radiation dose reduction, the following was used: automated exposure control, adjustment of mA and/or kV according to patient size. COMPARISON: [facility], CT, CT HEAD/BRAIN WO CON, 04/25/2023, 13:50. FINDINGS: Image quality: Diagnostic. CSF spaces: Basal cisterns are patent. No extra-axial fluid collections. Ventricles are normal in size and shape. Brain: Stable degree of volume loss as well as periventricular chronic small vessel ischemic changes. There is no mass, mass effect or midline shift. Skull and face: Calvarium and visualized facial bones are intact, without suspicious lesions. Sinuses: Visualized sinuses and mastoids are clear. IMPRESSION: Stable senescent changes, no acute intracranial abnormality seen. Dictated by: Beny Herron M.D. on 06/04/2025 at 19:55 Approved by: Beny Herron M.D. on 06/04/2025 at 19:58
--- NOTE | 2025-06-04 18:49 | DI.CT.S_ITS ---
PROCEDURE: CT ABDOMEN PELVIS W CON INDICATIONS: abd pain TECHNIQUE: After the administration of intravenous contrast, axial sections acquired from the lung bases to the pubic symphysis. Coronal and sagittal reformats were performed. For radiation dose reduction, the following was used: automated exposure control, adjustment of mA and/or kV according to patient size. COMPARISON: [facility], CT, CT ABDOMEN PELVIS W CON, 05/07/2024, 3:07. FINDINGS: Image quality: Diagnostic. Lower Chest: No significant findings. ABDOMEN: Liver: No solid mass. Gallbladder: Sludge with small calculi and milk of calcium. No inflammatory changes Biliary ducts: No biliary dilation. Pancreas: No ductal dilation. Spleen: Size is within normal limits. Adrenal Glands: No adrenal nodules. Kidneys and Ureters: No hydronephrosis. No solid mass. No complex renal cystic lesion which requires follow up. Stomach and Bowel: There is no bowel dilatation. There is wall thickening in the distal portion of the transverse colon, hepatic flexure as well as the proximal to midportion of the descending colon. Peritoneum: No abnormal intraperitoneal fluid. No free air. Ventral Wall: No significant ventral hernia. Abdominal Nodes: No retroperitoneal or mesenteric adenopathy by size criteria. Vessels: Severe atherosclerotic disease of the abdominal aorta and iliac arteries again seen. No new vascular occlusion. PELVIS: Pelvic Organs: Status post hysterectomy. No adnexal mass seen. Bladder: Trabeculated bladder, no focal lesions Pelvic Nodes: No enlarged lymph nodes. Miscellaneous: No inguinal hernias are seen. Bones: No aggressive osseous abnormality. IMPRESSION: 1. Findings again suggestive of colitis extending from the distal transverse colon to the mid descending colon. This may be of inflammatory/infectious etiology, possibly also ischemic colitis in this region. 2. No signs of complications. Dictated by: Beny Herron M.D. on 06/04/2025 at 19:50 Approved by: Beny Herron M.D. on 06/04/2025 at 19:54
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
[2025-06-04 19:23] LABS: Add Manual Diff / Slide Review NO; Hematocrit 34.3 % (36-46); Hemoglobin 11.2 g/dL (12.0-16.0); Lymphocytes Absolute Auto 1900 /uL (1100-4500); Mean Corpuscular HGB Conc 32.8 % (30-36); Mean Corpuscular Hemoglobin 27.2 PG (26-34); Mean Corpuscular Volume 83.0 fL (80-100); Platelet Count 294 X10^3/uL (150-400)
[2025-06-04 19:28] LABS: Alanine Aminotransferase 16 IU/L (<35); Albumin 4.1 g/dL (3.5-5.0); Albumin Globulin Ratio 1.3 (1.0-2.8); Alkaline Phosphatase 122 U/L (38-126); Blood Urea Nitrogen 33 mg/dL (7-17); Calcium 9.6 mg/dL (8.4-10.2); Carbon Dioxide 28 mmol/L (22-32); Chloride 106 mmol/L (98-107); Creatine Kinase 36 U/L (30-135); Estimated Glomerular Filt Rate 50 mL/min (>60); Globulin 3.1 g/dL (1.7-4.1); Glucose 116 mg/dL (70-99); HEMOLYSIS < 15 (0-50); Lipase 199 U/L (23-300); Potassium 3.8 mmol/L (3.4-5.1); Sodium 140 mmol/L (137-145); Total Protein 7.2 g/dL (6.3-8.2)
[2025-06-04 19:40] LABS: Troponin I 0.013 ng/mL (0.01-0.034)
[2025-06-04 20:14] LABS: Appearance Urine UA CLEAR; Bilirubin Urine UA NEGATIVE (NEGATIVE); Color Urine UA YELLOW; Glucose Urine UA NEGATIVE (Negative); Ketones Urine UA NEGATIVE (NEGATIVE); Leukocyte Esterase Urine UA NEGATIVE (NEGATIVE); Nitrite Urine UA NEGATIVE (Negative); Occult Blood Urine UA TRACE-INTACT (Negative); Protein Urine UA NEGATIVE (Negative); Specific Gravity Urine UA 1.010 (1.000-1.035); Urobilinogen Urine UA 1.0 E.U./dL (0.2)
[2025-06-04 20:21] LABS: pH Urine UA 5.5 (4.5-8.0)
[2025-06-04 20:22] LABS: Culture Indicated Urine Cult Not Indicated
[2025-06-04 20:46] LABS: Influenza A - CEPHEID Flu A NEGATIVE (NEGATIVE); Influenza B - CEPHEID Flu B NEGATIVE (NEGATIVE)
[2025-06-04 20:55] LABS: COVID-19 CEPHEID 4-PLEX PCR Negative (Negative)
--- NOTE | 2025-06-04 21:50 | PC.NURSE ---
On phone with patients son - he is expressing concerns for pt due to her inability to function on own at home. He reports she has not been able to walk more than 10 feet without becoming short of breath and almost falling. pt able to walk on own around room and to bedside commode with standby assist. Provide aware
[2025-06-04 22:04] LABS: Troponin I 0.012 ng/mL (0.01-0.034)
[2025-06-04 22:37] LABS: Lactate (Lactic Acid) 0.8 mmol/L (0.7-2.1)
[2025-06-04] MEDS: SODIUM CHLORIDE 0.9% 1,000 ML 100 ML IV (22:54)
[2025-06-05] VITALS (8 sets, daily range): BP systolic 126–167; BP diastolic 68–89; PULSE 78–96; RESP 18–22; TEMP 36.1–36.5; O2SAT 79–95
--- NOTE | 2025-06-05 04:46 | PM.HP.1 ---
History of Present Illness History of Present Illness Date Patient Seen: 06/04/25 Time Patient Seen: 23:01 Chief complaint: Weakness Narrative: Past medical history of CHF, hypertension, chronic back pain, COPD, neuropathy and hypertension presents with complaint of generalized weakness. Per the patient's report, the patient lives at home with her son and grandson. 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 However the patient states that when she was home she was too weak to get to the bathroom safely and had a incontinence of stool. The patient states that her son and grandsons is not able to adequately care for her. The patient however denies any fever, chills, nausea, vomiting, diarrhea, chest pain or shortness of breath. In the emergency room, the patient was hemodynamically stable. Labs were done but were relatively benign viral respiratory panel as well as UA were negative for any sign of infection. CT of the abdomen however shows signs of colitis. Lactic came back normal though. Per CT scan colitis could be infectious versus ischemic. The case was discussed with hospitalist on-call Dr. Sanchez who recommended that we admit the patient and monitor overnight. Again the patient did not have significant abdominal pain. [facility] Medical History Incomplete bladder emptying ARF (acute renal failure) Cat bite of forearm Carotid artery disease Mobitz type 2 second degree AV block CHF (congestive heart failure) Ganglion cyst COPD (chronic obstructive pulmonary disease) Hypertension Depression Vision disorder Psoriasis (~1999) Acne Fibromyalgia Chronic back pain Measles Chicken pox Herpes (~1999) Fibroids Endometriosis History of urinary incontinence Irritable bowel syndrome Diverticular disease Colon polyps Ischemic colitis Surgical History Anesthesia History of tonsillectomy History of appendectomy History of bilateral oophorectomies H/O: hysterectomy Pacemaker Family History Father Diabetes mellitus Mother Diabetes mellitus Brother Diabetes mellitus Sister Stroke Social History marital status: number of children: 3 household members: family lives independently: Yes alcohol intake: current substance use type: does not use Meds Home Medications and Allergies Home Medications ?Medication ?Instructions ?Recorded ?Confirmed ?Type diclofenac sodium 1 % topical gel 2 g topical QID #100 grams 03/17/22 05/15/25 Rx (Voltaren Arthritis Pain) contour plus #28 ea 05/26/22 05/15/25 Rx cyproheptadine 4 mg tablet 4 mg PO BID #180 tabs 08/11/24 05/15/25 Rx atorvastatin 80 mg tablet 80 mg PO BEDTIME #90 tabs 10/02/24 05/15/25 Rx albuterol sulfate 2.5 mg/3 mL 2.5 mg (3 mL) inhalation Q4-6H PRN 02/20/25 05/15/25 Rx (0.083 %) solution for nebulization shortness of breath or wheezing #75 mL benzonatate 100 mg capsule 100 mg PO TID PRN cough #20 caps 02/20/25 05/15/25 Rx fesoterodine 4 mg tablet,extended 4 mg PO DAILY #90 tabs 02/20/25 05/15/25 Rx release 24 hr (Toviaz) prednisone 20 mg tablet 40 mg (2 x 20 mg) PO DAILY #10 tabs 04/07/25 05/15/25 Rx bupropion HCl 150 mg tablet,12 hr 150 mg PO DAILY #90 tabs 04/08/25 05/15/25 Rx sustained-release gabapentin 300 mg capsule 300 mg PO ONCE PM #90 caps 04/08/25 05/15/25 Rx fluticasone 250 mcg-salmeterol 50 1 inh inhalation BID #60 ea 04/22/25 05/15/25 Rx mcg/dose blistr powdr for inhalation albuterol sulfate 90 mcg/actuation 2 inh inhalation Q6H PRN shortness 05/15/25 05/15/25 Rx breath activated powder inhaler of breath #1 ea carvedilol 3.125 mg tablet See Rx Instructions .Route 05/15/25 05/15/25 Rx .COMPLEX #180 tabs clopidogrel 75 mg tablet 75 mg PO DAILY #90 tabs 05/15/25 05/15/25 Rx estradiol 0.01% (0.1 mg/gram) 0.25 appful vaginal BEDTIME #42.5 05/15/25 05/15/25 Rx vaginal cream grams mirabegron 25 mg tablet,extended 25 mg PO DAILY #90 tabs 05/15/25 05/15/25 Rx release 24 hr (Myrbetriq) triamterene 37.5 0.5 tab PO DAILY #45 tabs 05/15/25 05/15/25 Rx mg-hydrochlorothiazide 25 mg tablet fluticasone 250 mcg-salmeterol 50 1 inh inhalation BID #60 ea 05/19/25 Rx mcg/dose blistr powdr for inhalation (Advair Diskus) Allergies Allergy/AdvReac Type Severity Reaction Status Date / Time latex (LATEX) Allergy Mild Verified 06/03/25 17:36 amoxicillin (AMOXICILLIN) Allergy Unknown Verified 06/03/25 17:36 levofloxacin (LEVOFLOXACIN) Allergy Unknown Verified 06/03/25 17:36 niacin Allergy Unknown Verified 06/03/25 17:36 sulfamethoxazole (From Allergy Unknown Verified 06/03/25 17:36 Bactrim) tobramycin Allergy Unknown Verified 06/03/25 17:36 trimethoprim (From Bactrim) Allergy Unknown Verified 06/03/25 17:36 varenicline (From Chantix) Allergy Unknown Verified 06/03/25 17:36 Review of Systems Review of Systems ROS: Yes All systems reviewed with the patient and are negative except as otherwise documented Exam Vital Signs (past 8 hours): - 06/04/25 21:00 06/04/25 21:00 06/04/25 21:30 Temperature Pulse Rate 97 H 91 H Respiratory Rate 24 17 Blood Pressure 170/79 H Pulse Oximetry 95 94 06/04/25 21:30 06/04/25 22:00 06/04/25 22:00 Temperature Pulse Rate 93 H Respiratory Rate 18 Blood Pressure 182/81 H 162/72 H Pulse Oximetry 94 06/04/25 22:24 06/04/25 22:30 06/04/25 22:30 Temperature 98.1 F Pulse Rate 98 H Respiratory Rate 18 22 Blood Pressure 130/62 Pulse Oximetry 94 06/04/25 23:00 06/04/25 23:01 06/04/25 23:01 Temperature Pulse Rate 99 H 100 H Respiratory Rate 20 26 H Blood Pressure 166/80 H Pulse Oximetry 96 Oxygen Delivery Method Room Air Narrative Exam Narrative: Physical Exam: GENERAL: The patient is not in any acute distressed. Awake and alert. HEENT: Nonicteric sclerae, PERRLA, EOMI. Oropharynx clear. Moist mucous membranes. Conjunctivae appear well perfused. HEART: Regular rate and rhythm without murmurs. No lower extremities edema. LUNGS: Clear to auscultation bilaterally. No wheezing, crackles or rhonchi ABDOMEN: Soft, positive bowel sounds, nontender. SKIN: No rash, no excessive bruising, petechiae, or purpura. NEUROLOGIC: AxO x 3. Cranial nerves II-XII intact without motor/sensory deficit. Objective Labs 06/04/25 17:50 06/04/25 17:50 Labs: Laboratory Results - last 24 hr 06/04/25 06/04/25 06/04/25 17:50 19:33 20:05 WBC 8.3 RBC 4.13 Hgb 11.2 L Hct 34.3 L MCV 83.0 MCH 27.2 MCHC 32.8 RDW 17.1 H Plt Count 294 Neut % (Auto) 63.2 Lymph % (Auto) 22.4 L [place] % (Auto) 9.1 Eos % (Auto) 3.7 Baso % (Auto) 1.6 Neut # (Auto) 5200 Lymph # (Auto) 1900 [place] # (Auto) 800 Eos # (Auto) 300 Baso # (Auto) 100 Sodium 140 Potassium 3.8 Chloride 106 Carbon Dioxide 28 BUN 33 H Creatinine 1.11 H Estimated GFR 50 L BUN/Creatinine Ratio 29.7 H Glucose 116 H Lactate Calcium 9.6 Total Bilirubin 0.5 AST 31 ALT 16 Alkaline Phosphatase 122 Total Creatine Kinase 36 Troponin I 0.013 Total Protein 7.2 Albumin 4.1 Globulin 3.1 Albumin/Globulin Ratio 1.3 Lipase 199 D Urine Color Yellow Urine Appearance Clear Urine pH 5.5 Ur Specific [place] 1.010 Urine Protein Negative Urine Glucose (UA) Negative Urine Ketones Negative Urine Occult Blood Trace-intact Urine Nitrate Negative Urine Bilirubin Negative Urine Urobilinogen 1.0 Ur Leukocyte Esterase Negative Urine RBC 1-5/hpf Urine WBC None seen Ur Squamous Epith Cells None seen Ur Renal Epithelial Cell 0-1/hpf Urine Bacteria Occasional (0-1) Ur Culture Indicated? Cult not indicated Vol Urine Centrifuged 10ml (spun) SARS-CoV-2 (PCR) Negative Influenza A (RT-PCR) Flu a negative Influenza B (RT-PCR) Flu b negative RSV (PCR) Negative 06/04/25 06/04/25 21:36 22:10 WBC RBC Hgb Hct MCV MCH MCHC RDW Plt Count Neut % (Auto) Lymph % (Auto) [place] % (Auto) Eos % (Auto) Baso % (Auto) Neut # (Auto) Lymph # (Auto) [place] # (Auto) Eos # (Auto) Baso # (Auto) Sodium Potassium Chloride Carbon Dioxide BUN Creatinine Estimated GFR BUN/Creatinine Ratio Glucose Lactate 0.8 Calcium Total Bilirubin AST ALT Alkaline Phosphatase Total Creatine Kinase Troponin I 0.012 Total Protein Albumin Globulin Albumin/Globulin Ratio Lipase Urine Color Urine Appearance Urine pH Ur Specific [place] Urine Protein Urine Glucose (UA) Urine Ketones Urine Occult Blood Urine Nitrate Urine Bilirubin Urine Urobilinogen Ur Leukocyte Esterase Urine RBC Urine WBC Ur Squamous Epith Cells Ur Renal Epithelial Cell Urine Bacteria Ur Culture Indicated? Vol Urine Centrifuged SARS-CoV-2 (PCR) Influenza A (RT-PCR) Influenza B (RT-PCR) RSV (PCR) Assessment & Plan Assessment & Plan narrative: Colitis. Admit the patient to medical observation. Of note the patient is not septic and lactic acid is normal. Patient does have significant LVH to suggest acute ischemic colitis. However Dr. Sanchez from general surgery was consulted by ER physician. Will have patient on clear liquid if tolerated. IV fluid. Pain control. Will hold off any antibiotic at this time. Will treat conservatively. Generalized weakness. PT OT and will likely need home health versus long-term care facility placement. COPD. No sign of exacerbation. Continue home inhalers. Lung mass on CT scan. Will need follow-up as outpatient for further workup or management. Hypertension. Monitor blood pressure and resume home medication accordingly. CHF. No sign of exacerbation. She is n.p.o. will have gentle IV fluid and monitor I's and O's and daily weights. Hold home diuretics for now. Neuropathy. Resume home gabapentin. DVT prophylaxis heparin subcu. CODE STATUS DNR/DNI Disposition likely home in 1 to 2 days with home health - As the provider of this telehealth evaluation, requested by the patient's evaluating physician, I attest that I introduced myself to the patient, provided my credentials and determined that telemedicine via a real-time, 2 way interactive audio and video platform is an appropriate and effective means of providing this service. - I reviewed the patient's chart and had a discussion with the member of the patient's treatment team. - The patient and I mutually agreed with continuation of this evaluation via telemedicine. The patient consented for the telemedicine evaluation. - This virtual encounter was taken place from [place] by Dr. Ramon Guardado. The patient was evaluated at [facility]. The encounter was approximately 35 minutes. The nurse was present during the entire time of the encounter and was able assists with the stethoscope to listen to the patients. Time-Based Coding :: [TOTAL MINUTES] spent with patient and on the chart (including review of chart, obtaining history, exam, reviewing outside data, placing orders, documenting exam and treatment plan, and counseling patient) on [DATE].
[2025-06-05 05:49] LABS: Alanine Aminotransferase 12 IU/L (<35); Albumin 3.4 g/dL (3.5-5.0); Albumin Globulin Ratio 1.3 (1.0-2.8); Alkaline Phosphatase 109 U/L (38-126); Blood Urea Nitrogen 21 mg/dL (7-17); Calcium 8.5 mg/dL (8.4-10.2); Carbon Dioxide 23 mmol/L (22-32); Chloride 110 mmol/L (98-107); Estimated Glomerular Filt Rate > 60 mL/min (>60); Globulin 2.6 g/dL (1.7-4.1); Glucose 82 mg/dL (70-99); HEMOLYSIS < 15 (0-50); Potassium 3.1 mmol/L (3.4-5.1); Sodium 138 mmol/L (137-145); Total Protein 6.0 g/dL (6.3-8.2)
[2025-06-05 05:54] LABS: Add Manual Diff / Slide Review NO; Hematocrit 28.5 % (36-46); Hemoglobin 9.6 g/dL (12.0-16.0); Lymphocytes Absolute Auto 1900 /uL (1100-4500); Mean Corpuscular HGB Conc 33.8 % (30-36); Mean Corpuscular Hemoglobin 27.6 PG (26-34); Mean Corpuscular Volume 81.5 fL (80-100); Platelet Count 242 X10^3/uL (150-400)
--- NOTE | 2025-06-05 06:27 | PM.HP.1 ---
History of Present Illness History of Present Illness Date Patient Seen: 06/05/25 Chief complaint: Weakness Narrative: Past medical history of CHF, hypertension, chronic back pain, COPD, neuropathy and hypertension presents with complaint of generalized weakness. Per the patient's report, the patient lives at home with her son and grandson. 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 However the patient states that when she was home she was too weak to get to the bathroom safely and had a incontinence of stool. The patient states that her son and grandsons is not able to adequately care for her. The patient however denies any fever, chills, nausea, vomiting, diarrhea, chest pain or shortness of breath. In the emergency room, the patient was hemodynamically stable. Labs were done but were relatively benign viral respiratory panel as well as UA were negative for any sign of infection. CT of the abdomen however shows signs of colitis. Lactic came back normal though. Per CT scan colitis could be infectious versus ischemic. The case was discussed with hospitalist on-call Dr. Sanchez who recommended that we admit the patient and monitor overnight. Again the patient did not have significant abdominal pain. Meds Home Medications and Allergies Home Medications ?Medication ?Instructions ?Recorded ?Confirmed ?Type diclofenac sodium 1 % topical gel 2 g topical QID #100 grams 03/17/22 05/15/25 Rx (Voltaren Arthritis Pain) contour plus #28 ea 05/26/22 05/15/25 Rx cyproheptadine 4 mg tablet 4 mg PO BID #180 tabs 08/11/24 05/15/25 Rx atorvastatin 80 mg tablet 80 mg PO BEDTIME #90 tabs 10/02/24 05/15/25 Rx albuterol sulfate 2.5 mg/3 mL 2.5 mg (3 mL) inhalation Q4-6H PRN 02/20/25 05/15/25 Rx (0.083 %) solution for nebulization shortness of breath or wheezing #75 mL benzonatate 100 mg capsule 100 mg PO TID PRN cough #20 caps 02/20/25 05/15/25 Rx fesoterodine 4 mg tablet,extended 4 mg PO DAILY #90 tabs 02/20/25 05/15/25 Rx release 24 hr (Toviaz) prednisone 20 mg tablet 40 mg (2 x 20 mg) PO DAILY #10 tabs 04/07/25 05/15/25 Rx bupropion HCl 150 mg tablet,12 hr 150 mg PO DAILY #90 tabs 04/08/25 05/15/25 Rx sustained-release gabapentin 300 mg capsule 300 mg PO ONCE PM #90 caps 04/08/25 05/15/25 Rx fluticasone 250 mcg-salmeterol 50 1 inh inhalation BID #60 ea 04/22/25 05/15/25 Rx mcg/dose blistr powdr for inhalation albuterol sulfate 90 mcg/actuation 2 inh inhalation Q6H PRN shortness 05/15/25 05/15/25 Rx breath activated powder inhaler of breath #1 ea carvedilol 3.125 mg tablet See Rx Instructions .Route 05/15/25 05/15/25 Rx .COMPLEX #180 tabs clopidogrel 75 mg tablet 75 mg PO DAILY #90 tabs 05/15/25 05/15/25 Rx estradiol 0.01% (0.1 mg/gram) 0.25 appful vaginal BEDTIME #42.5 05/15/25 05/15/25 Rx vaginal cream grams mirabegron 25 mg tablet,extended 25 mg PO DAILY #90 tabs 05/15/25 05/15/25 Rx release 24 hr (Myrbetriq) triamterene 37.5 0.5 tab PO DAILY #45 tabs 05/15/25 05/15/25 Rx mg-hydrochlorothiazide 25 mg tablet fluticasone 250 mcg-salmeterol 50 1 inh inhalation BID #60 ea 05/19/25 Rx mcg/dose blistr powdr for inhalation (Advair Diskus) Laboratory Results - last 24 hr 06/04/25 06/04/25 06/04/25 17:50 19:33 20:05 WBC 8.3 RBC 4.13 Hgb 11.2 L Hct 34.3 L MCV 83.0 MCH 27.2 MCHC 32.8 RDW 17.1 H Plt Count 294 Neut % (Auto) 63.2 Lymph % (Auto) 22.4 L [place] % (Auto) 9.1 Eos % (Auto) 3.7 Baso % (Auto) 1.6 Neut # (Auto) 5200 Lymph # (Auto) 1900 [place] # (Auto) 800 Eos # (Auto) 300 Baso # (Auto) 100 Sodium 140 Potassium 3.8 Chloride 106 Carbon Dioxide 28 BUN 33 H Creatinine 1.11 H Estimated GFR 50 L BUN/Creatinine Ratio 29.7 H Glucose 116 H Lactate Calcium 9.6 Total Bilirubin 0.5 AST 31 ALT 16 Alkaline Phosphatase 122 Total Creatine Kinase 36 Troponin I 0.013 Total Protein 7.2 Albumin 4.1 Globulin 3.1 Albumin/Globulin Ratio 1.3 Lipase 199 D Urine Color Yellow Urine Appearance Clear Urine pH 5.5 Ur Specific [place] 1.010 Urine Protein Negative Urine Glucose (UA) Negative Urine Ketones Negative Urine Occult Blood Trace-intact Urine Nitrate Negative Urine Bilirubin Negative Urine Urobilinogen 1.0 Ur Leukocyte Esterase Negative Urine RBC 1-5/hpf Urine WBC None seen Ur Squamous Epith Cells None seen Ur Renal Epithelial Cell 0-1/hpf Urine Bacteria Occasional (0-1) Ur Culture Indicated? Cult not indicated Vol Urine Centrifuged 10ml (spun) SARS-CoV-2 (PCR) Negative Influenza A (RT-PCR) Flu a negative Influenza B (RT-PCR) Flu b negative RSV (PCR) Negative 06/04/25 06/04/25 21:36 22:10 WBC RBC Hgb Hct MCV MCH MCHC RDW Plt Count Neut % (Auto) Lymph % (Auto) [place] % (Auto) Eos % (Auto) Baso % (Auto) Neut # (Auto) Lymph # (Auto) [place] # (Auto) Eos # (Auto) Baso # (Auto) Sodium Potassium Chloride Carbon Dioxide BUN Creatinine Estimated GFR BUN/Creatinine Ratio Glucose Lactate 0.8 Calcium Total Bilirubin AST ALT Alkaline Phosphatase Total Creatine Kinase Troponin I 0.012 Total Protein Albumin Globulin Albumin/Globulin Ratio Lipase Urine Color Urine Appearance Urine pH Ur Specific [place] Urine Protein Urine Glucose (UA) Urine Ketones Urine Occult Blood Urine Nitrate Urine Bilirubin Urine Urobilinogen Ur Leukocyte Esterase Urine RBC Urine WBC Ur Squamous Epith Cells Ur Renal Epithelial Cell Urine Bacteria Ur Culture Indicated? Vol Urine Centrifuged SARS-CoV-2 (PCR) Influenza A (RT-PCR) Influenza B (RT-PCR) RSV (PCR) Assessment & Plan Assessment & Plan narrative: Colitis. Admit the patient to medical observation. Of note the patient is not septic and lactic acid is normal. Patient does have significant LVH to suggest acute ischemic colitis. However Dr. Sanchez from general surgery was consulted by ER physician. Will have patient on clear liquid if tolerated. IV fluid. Pain control. Will hold off any antibiotic at this time. Will treat conservatively. Generalized weakness. PT OT and will likely need home health versus long-term care facility placement. COPD. No sign of exacerbation. Continue home inhalers. Lung mass on CT scan. Will need follow-up as outpatient for further workup or management. Hypertension. Monitor blood pressure and resume home medication accordingly. CHF. No sign of exacerbation. She is n.p.o. will have gentle IV fluid and monitor I's and O's and daily weights. Hold home diuretics for now. Neuropathy. Resume home gabapentin. DVT prophylaxis heparin subcu. CODE STATUS DNR/DNI Disposition likely home in 1 to 2 days with home health [facility] Medical History Incomplete bladder emptying ARF (acute renal failure) Cat bite of forearm Carotid artery disease Mobitz type 2 second degree AV block CHF (congestive heart failure) Ganglion cyst COPD (chronic obstructive pulmonary disease) Hypertension Depression Vision disorder Psoriasis (~1999) Acne Fibromyalgia Chronic back pain Measles Chicken pox Herpes (~1999) Fibroids Endometriosis History of urinary incontinence Irritable bowel syndrome Diverticular disease Colon polyps Ischemic colitis Surgical History Anesthesia History of tonsillectomy History of appendectomy History of bilateral oophorectomies H/O: hysterectomy Pacemaker Family History Father Diabetes mellitus Mother Diabetes mellitus Brother Diabetes mellitus Sister Stroke Social History marital status: number of children: 3 household members: family lives independently: Yes alcohol intake: current substance use type: does not use Meds Home Medications and Allergies Home Medications ?Medication ?Instructions ?Recorded ?Confirmed ?Type diclofenac sodium 1 % topical gel 2 g topical QID #100 grams 03/17/22 05/15/25 Rx (Voltaren Arthritis Pain) contour plus #28 ea 05/26/22 05/15/25 Rx cyproheptadine 4 mg tablet 4 mg PO BID #180 tabs 08/11/24 05/15/25 Rx atorvastatin 80 mg tablet 80 mg PO BEDTIME #90 tabs 10/02/24 05/15/25 Rx albuterol sulfate 2.5 mg/3 mL 2.5 mg (3 mL) inhalation Q4-6H PRN 02/20/25 05/15/25 Rx (0.083 %) solution for nebulization shortness of breath or wheezing #75 mL benzonatate 100 mg capsule 100 mg PO TID PRN cough #20 caps 02/20/25 05/15/25 Rx fesoterodine 4 mg tablet,extended 4 mg PO DAILY #90 tabs 02/20/25 05/15/25 Rx release 24 hr (Toviaz) prednisone 20 mg tablet 40 mg (2 x 20 mg) PO DAILY #10 tabs 04/07/25 05/15/25 Rx bupropion HCl 150 mg tablet,12 hr 150 mg PO DAILY #90 tabs 04/08/25 05/15/25 Rx sustained-release gabapentin 300 mg capsule 300 mg PO ONCE PM #90 caps 04/08/25 05/15/25 Rx fluticasone 250 mcg-salmeterol 50 1 inh inhalation BID #60 ea 04/22/25 05/15/25 Rx mcg/dose blistr powdr for inhalation albuterol sulfate 90 mcg/actuation 2 inh inhalation Q6H PRN shortness 05/15/25 05/15/25 Rx breath activated powder inhaler of breath #1 ea carvedilol 3.125 mg tablet See Rx Instructions .Route 05/15/25 05/15/25 Rx .COMPLEX #180 tabs clopidogrel 75 mg tablet 75 mg PO DAILY #90 tabs 05/15/25 05/15/25 Rx estradiol 0.01% (0.1 mg/gram) 0.25 appful vaginal BEDTIME #42.5 05/15/25 05/15/25 Rx vaginal cream grams mirabegron 25 mg tablet,extended 25 mg PO DAILY #90 tabs 05/15/25 05/15/25 Rx release 24 hr (Myrbetriq) triamterene 37.5 0.5 tab PO DAILY #45 tabs 05/15/25 05/15/25 Rx mg-hydrochlorothiazide 25 mg tablet fluticasone 250 mcg-salmeterol 50 1 inh inhalation BID #60 ea 05/19/25 Rx mcg/dose blistr powdr for inhalation (Advair Diskus) Allergies Allergy/AdvReac Type Severity Reaction Status Date / Time latex (LATEX) Allergy Mild Verified 06/03/25 17:36 amoxicillin (AMOXICILLIN) Allergy Unknown Verified 06/03/25 17:36 levofloxacin (LEVOFLOXACIN) Allergy Unknown Verified 06/03/25 17:36 niacin Allergy Unknown Verified 06/03/25 17:36 sulfamethoxazole (From Allergy Unknown Verified 06/03/25 17:36 Bactrim) tobramycin Allergy Unknown Verified 06/03/25 17:36 trimethoprim (From Bactrim) Allergy Unknown Verified 06/03/25 17:36 varenicline (From Chantix) Allergy Unknown Verified 06/03/25 17:36 Exam Vital Signs (past 8 hours): - 06/04/25 22:30 06/04/25 22:30 06/04/25 23:00 Temperature 98.1 F Pulse Rate 98 H 99 H Respiratory Rate 22 20 Blood Pressure 130/62 Pulse Oximetry 94 96 06/04/25 23:01 06/04/25 23:01 Temperature Pulse Rate 100 H Respiratory Rate 26 H Blood Pressure 166/80 H Pulse Oximetry Oxygen Delivery Method Room Air Objective Labs 06/05/25 05:07 06/05/25 05:07 Labs: Laboratory Results - last 24 hr 06/04/25 06/04/25 06/04/25 17:50 19:33 20:05 WBC 8.3 RBC 4.13 Hgb 11.2 L Hct 34.3 L MCV 83.0 MCH 27.2 MCHC 32.8 RDW 17.1 H Plt Count 294 Neut % (Auto) 63.2 Lymph % (Auto) 22.4 L [place] % (Auto) 9.1 Eos % (Auto) 3.7 Baso % (Auto) 1.6 Neut # (Auto) 5200 Lymph # (Auto) 1900 [place] # (Auto) 800 Eos # (Auto) 300 Baso # (Auto) 100 Sodium 140 Potassium 3.8 Chloride 106 Carbon Dioxide 28 BUN 33 H Creatinine 1.11 H Estimated GFR 50 L BUN/Creatinine Ratio 29.7 H Glucose 116 H Lactate Calcium 9.6 Total Bilirubin 0.5 AST 31 ALT 16 Alkaline Phosphatase 122 Total Creatine Kinase 36 Troponin I 0.013 Total Protein 7.2 Albumin 4.1 Globulin 3.1 Albumin/Globulin Ratio 1.3 Lipase 199 D Urine Color Yellow Urine Appearance Clear Urine pH 5.5 Ur Specific [place] 1.010 Urine Protein Negative Urine Glucose (UA) Negative Urine Ketones Negative Urine Occult Blood Trace-intact Urine Nitrate Negative Urine Bilirubin Negative Urine Urobilinogen 1.0 Ur Leukocyte Esterase Negative Urine RBC 1-5/hpf Urine WBC None seen Ur Squamous Epith Cells None seen Ur Renal Epithelial Cell 0-1/hpf Urine Bacteria Occasional (0-1) Ur Culture Indicated? Cult not indicated Vol Urine Centrifuged 10ml (spun) SARS-CoV-2 (PCR) Negative Influenza A (RT-PCR) Flu a negative Influenza B (RT-PCR) Flu b negative RSV (PCR) Negative 06/04/25 06/04/25 06/05/25 21:36 22:10 05:07 WBC 9.0 RBC 3.49 L Hgb 9.6 L Hct 28.5 L MCV 81.5 MCH 27.6 MCHC 33.8 RDW 16.9 H Plt Count 242 Neut % (Auto) 66.8 Lymph % (Auto) 21.0 L [place] % (Auto) 8.0 Eos % (Auto) 3.2 Baso % (Auto) 1.0 Neut # (Auto) 6000 Lymph # (Auto) 1900 [place] # (Auto) 700 Eos # (Auto) 300 Baso # (Auto) 100 Sodium 138 Potassium 3.1 L Chloride 110 H Carbon Dioxide 23 BUN 21 H Creatinine 0.83 Estimated GFR > 60 BUN/Creatinine Ratio 25.3 H Glucose 82 Lactate 0.8 Calcium 8.5 Total Bilirubin 0.4 AST 24 ALT 12 Alkaline Phosphatase 109 Total Creatine Kinase Troponin I 0.012 Total Protein 6.0 L Albumin 3.4 L Globulin 2.6 Albumin/Globulin Ratio 1.3 Lipase Urine Color Urine Appearance Urine pH Ur Specific [place] Urine Protein Urine Glucose (UA) Urine Ketones Urine Occult Blood Urine Nitrate Urine Bilirubin Urine Urobilinogen Ur Leukocyte Esterase Urine RBC Urine WBC Ur Squamous Epith Cells Ur Renal Epithelial Cell Urine Bacteria Ur Culture Indicated? Vol Urine Centrifuged SARS-CoV-2 (PCR) Influenza A (RT-PCR) Influenza B (RT-PCR) RSV (PCR) Assessment & Plan Time-Based Coding :: [TOTAL MINUTES] spent with patient and on the chart (including review of chart, obtaining history, exam, reviewing outside data, placing orders, documenting exam and treatment plan, and counseling patient) on [DATE].
--- NOTE | 2025-06-05 08:59 | PM.CN.IH.1 ---
History of Present Illness Consult details Date Patient Seen: 06/05/25 Time Patient Seen: 08:59 Chief complaint: Weakness Narrative: Apple is an 84-year-old woman who presented to the emergency department last night primarily for weakness. She did also endorse one episode of fecal incontinence yesterday consisting of a very large volume of stool although it was not diarrhea. She had a CT scan of the abdomen and pelvis in the emergency department that showed questionable thickening of the distal transverse colon and proximal descending colon. White blood cell count and lactate have been normal. She does endorse some mild upper abdominal pain. She is hungry. Meds Home Medications and Allergies Home Medications ?Medication ?Instructions ?Recorded ?Confirmed ?Type diclofenac sodium 1 % topical gel 2 g topical QID #100 grams 03/17/22 05/15/25 Rx (Voltaren Arthritis Pain) contour plus #28 ea 05/26/22 05/15/25 Rx cyproheptadine 4 mg tablet 4 mg PO BID #180 tabs 08/11/24 05/15/25 Rx atorvastatin 80 mg tablet 80 mg PO BEDTIME #90 tabs 10/02/24 05/15/25 Rx albuterol sulfate 2.5 mg/3 mL 2.5 mg (3 mL) inhalation Q4-6H PRN 02/20/25 05/15/25 Rx (0.083 %) solution for nebulization shortness of breath or wheezing #75 mL benzonatate 100 mg capsule 100 mg PO TID PRN cough #20 caps 02/20/25 05/15/25 Rx fesoterodine 4 mg tablet,extended 4 mg PO DAILY #90 tabs 02/20/25 05/15/25 Rx release 24 hr (Toviaz) prednisone 20 mg tablet 40 mg (2 x 20 mg) PO DAILY #10 tabs 04/07/25 05/15/25 Rx bupropion HCl 150 mg tablet,12 hr 150 mg PO DAILY #90 tabs 04/08/25 05/15/25 Rx sustained-release gabapentin 300 mg capsule 300 mg PO ONCE PM #90 caps 04/08/25 05/15/25 Rx fluticasone 250 mcg-salmeterol 50 1 inh inhalation BID #60 ea 04/22/25 05/15/25 Rx mcg/dose blistr powdr for inhalation albuterol sulfate 90 mcg/actuation 2 inh inhalation Q6H PRN shortness 05/15/25 05/15/25 Rx breath activated powder inhaler of breath #1 ea carvedilol 3.125 mg tablet See Rx Instructions .Route 05/15/25 05/15/25 Rx .COMPLEX #180 tabs clopidogrel 75 mg tablet 75 mg PO DAILY #90 tabs 05/15/25 05/15/25 Rx estradiol 0.01% (0.1 mg/gram) 0.25 appful vaginal BEDTIME #42.5 05/15/25 05/15/25 Rx vaginal cream grams mirabegron 25 mg tablet,extended 25 mg PO DAILY #90 tabs 05/15/25 05/15/25 Rx release 24 hr (Myrbetriq) triamterene 37.5 0.5 tab PO DAILY #45 tabs 05/15/25 05/15/25 Rx mg-hydrochlorothiazide 25 mg tablet fluticasone 250 mcg-salmeterol 50 1 inh inhalation BID #60 ea 05/19/25 Rx mcg/dose blistr powdr for inhalation (Advair Diskus) Allergies Allergy/AdvReac Type Severity Reaction Status Date / Time latex (LATEX) Allergy Mild Verified 06/03/25 17:36 amoxicillin (AMOXICILLIN) Allergy Unknown Verified 06/03/25 17:36 levofloxacin (LEVOFLOXACIN) Allergy Unknown Verified 06/03/25 17:36 niacin Allergy Unknown Verified 06/03/25 17:36 sulfamethoxazole (From Allergy Unknown Verified 06/03/25 17:36 Bactrim) tobramycin Allergy Unknown Verified 06/03/25 17:36 trimethoprim (From Bactrim) Allergy Unknown Verified 06/03/25 17:36 varenicline (From Chantix) Allergy Unknown Verified 06/03/25 17:36 Exam Vital Signs (past 8 hours): - 06/05/25 04:00 06/05/25 07:54 Temperature 97.5 F L 97.7 F Pulse Rate 86 84 Respiratory Rate 18 18 Blood Pressure 167/84 H 126/68 Pulse Oximetry 93 92 Oxygen Flow Rate 0 Oxygen Delivery Method Room Air Oxygen Flow Rate 0 Narrative Exam Narrative: Short of breath Abdomen is soft, nontender Objective Labs 06/05/25 05:07 06/05/25 05:07 Labs: Laboratory Results - last 24 hr 06/04/25 06/04/25 06/04/25 17:50 19:33 20:05 WBC 8.3 RBC 4.13 Hgb 11.2 L Hct 34.3 L MCV 83.0 MCH 27.2 MCHC 32.8 RDW 17.1 H Plt Count 294 Neut % (Auto) 63.2 Lymph % (Auto) 22.4 L [place] % (Auto) 9.1 Eos % (Auto) 3.7 Baso % (Auto) 1.6 Neut # (Auto) 5200 Lymph # (Auto) 1900 [place] # (Auto) 800 Eos # (Auto) 300 Baso # (Auto) 100 Sodium 140 Potassium 3.8 Chloride 106 Carbon Dioxide 28 BUN 33 H Creatinine 1.11 H Estimated GFR 50 L BUN/Creatinine Ratio 29.7 H Glucose 116 H Lactate Calcium 9.6 Total Bilirubin 0.5 AST 31 ALT 16 Alkaline Phosphatase 122 Total Creatine Kinase 36 Troponin I 0.013 Total Protein 7.2 Albumin 4.1 Globulin 3.1 Albumin/Globulin Ratio 1.3 Lipase 199 D Urine Color Yellow Urine Appearance Clear Urine pH 5.5 Ur Specific [place] 1.010 Urine Protein Negative Urine Glucose (UA) Negative Urine Ketones Negative Urine Occult Blood Trace-intact Urine Nitrate Negative Urine Bilirubin Negative Urine Urobilinogen 1.0 Ur Leukocyte Esterase Negative Urine RBC 1-5/hpf Urine WBC None seen Ur Squamous Epith Cells None seen Ur Renal Epithelial Cell 0-1/hpf Urine Bacteria Occasional (0-1) Ur Culture Indicated? Cult not indicated Vol Urine Centrifuged 10ml (spun) SARS-CoV-2 (PCR) Negative Influenza A (RT-PCR) Flu a negative Influenza B (RT-PCR) Flu b negative RSV (PCR) Negative 06/04/25 06/04/25 06/05/25 21:36 22:10 05:07 WBC 9.0 RBC 3.49 L Hgb 9.6 L Hct 28.5 L MCV 81.5 MCH 27.6 MCHC 33.8 RDW 16.9 H Plt Count 242 Neut % (Auto) 66.8 Lymph % (Auto) 21.0 L [place] % (Auto) 8.0 Eos % (Auto) 3.2 Baso % (Auto) 1.0 Neut # (Auto) 6000 Lymph # (Auto) 1900 [place] # (Auto) 700 Eos # (Auto) 300 Baso # (Auto) 100 Sodium 138 Potassium 3.1 L Chloride 110 H Carbon Dioxide 23 BUN 21 H Creatinine 0.83 Estimated GFR > 60 BUN/Creatinine Ratio 25.3 H Glucose 82 Lactate 0.8 Calcium 8.5 Total Bilirubin 0.4 AST 24 ALT 12 Alkaline Phosphatase 109 Total Creatine Kinase Troponin I 0.012 Total Protein 6.0 L Albumin 3.4 L Globulin 2.6 Albumin/Globulin Ratio 1.3 Lipase Urine Color Urine Appearance Urine pH Ur Specific [place] Urine Protein Urine Glucose (UA) Urine Ketones Urine Occult Blood Urine Nitrate Urine Bilirubin Urine Urobilinogen Ur Leukocyte Esterase Urine RBC Urine WBC Ur Squamous Epith Cells Ur Renal Epithelial Cell Urine Bacteria Ur Culture Indicated? Vol Urine Centrifuged SARS-CoV-2 (PCR) Influenza A (RT-PCR) Influenza B (RT-PCR) RSV (PCR) PFSH Medical History Incomplete bladder emptying ARF (acute renal failure) Cat bite of forearm Carotid artery disease Mobitz type 2 second degree AV block CHF (congestive heart failure) Ganglion cyst COPD (chronic obstructive pulmonary disease) Hypertension Depression Vision disorder Psoriasis (~1999) Acne Fibromyalgia Chronic back pain Measles Chicken pox Herpes (~1999) Fibroids Endometriosis History of urinary incontinence Irritable bowel syndrome Diverticular disease Colon polyps Ischemic colitis Surgical History Anesthesia History of tonsillectomy History of appendectomy History of bilateral oophorectomies H/O: hysterectomy Pacemaker Family History Father Diabetes mellitus Mother Diabetes mellitus Brother Diabetes mellitus Sister Stroke Social History marital status: number of children: 3 household members: family lives independently: Yes Tobacco & Substance Use alcohol intake: current substance use type: does not use Assessment & Plan Assessment and plan (1) Weakness: Status: Acute Plan I have examined the patient and reviewed the CT scan. There is no overt indication of any type of surgical emergency. If her repeat lactate is normal she can advance to regular diet. Time-Based Coding :: [TOTAL MINUTES] spent with patient and on the chart (including review of chart, obtaining history, exam, reviewing outside data, placing orders, documenting exam and treatment plan, and counseling patient) on [DATE]. PROFEE Charge Codes Inpatient or Observation consultation: 61077
[2025-06-05] MEDS: SODIUM CHLORIDE 0.9% 1,000 ML 100 ML IV (09:02)
[2025-06-05] MEDS: CLOPIDOGREL 75 MG TABLET PO (09:10)
[2025-06-05] MEDS: POTASSIUM CHLORIDE 20 MEQ TAB 40 MEQ PO (09:10)
[2025-06-05] MEDS: ALBUTEROL 2.5 MG/3 ML NEB (ADULT) INH ×4 (09:17→20:04)
[2025-06-05] MEDS: BUDESONIDE 0.5 MG/2 ML NEB INH ×2 (09:17→20:04)
--- NOTE | 2025-06-05 09:25 | PT.IIE ---
Current Diagnoses Weakness (06/04/25) Surgical History (Last Reviewed 05/15/25 @ 16:11 by Mir Bingham DO) Anesthesia H/O: hysterectomy History of appendectomy History of bilateral oophorectomies History of tonsillectomy Pacemaker Medical History (Last Reviewed 05/15/25 @ 16:11 by Mir Bingham DO) Acne ARF (acute renal failure) Carotid artery disease Cat bite of forearm CHF (congestive heart failure) Chicken pox Chronic back pain Colon polyps COPD (chronic obstructive pulmonary disease) Depression Diverticular disease Endometriosis Fibroids Fibromyalgia Ganglion cyst Herpes (~1999) History of urinary incontinence Hypertension Incomplete bladder emptying Irritable bowel syndrome Ischemic colitis Measles Mobitz type 2 second degree AV block Psoriasis (~1999) Vision disorder Physical Therapy Inpatient Evaluation/Re-Eval M1 PT/OT-IP Prior Functional Status Start: 06/05/25 12:34 Freq: NEEDED Status: Active Protocol: Document 06/05/25 09:25 AB (Rec: 06/05/25 12:47 AB [id number]) Medical Review Prior Functional Status Medical History Yes Reviewed Communication able to make needs known Mobility and Gait pt stated that she was modified independent with all mobilities and ambulation using a FWW most of the time but uses SPC in her bedroom since FWW will not fit Social History Household Members family Living Arrangements House Number of Floors ( Two Floors Floors) Number of Stairs To pt stays on main level of the house Enter/Railing? 6 steps R rail ascending to enter from the garage Home Environment Standard Height Toilet,Tub/Shower Home Equipment Front Wheel Walker,Straight Cane,Shower Seat without Backrest,Hand Held Shower,Grab Bars In Shower Additional Social Grandson lives with pt but will not be able to assist History Comment pt pt has somebody that comes in 2x/week to assist with cd mixer M2 PT-IP Current Condition Start: 06/05/25 12:34 Freq: NEEDED Status: Active Protocol: Document 06/05/25 09:25 AB (Rec: 06/05/25 12:47 AB [id number]) Physical Therapy Current Condition Current Condition Evaluation Date 06/05/25 Treatment Diagnosis colitis; difficulty in walking Onset Date 06/04/25 M3 PT-IP Subjective Start: 06/05/25 12:34 Freq: NEEDED Status: Active Protocol: Document 06/05/25 09:25 AB (Rec: 06/05/25 12:47 AB [id number]) Subjective Physical Therapy Visit Type Type Initial Evaluation Visit Start Time 09:25 Visit Stop Time 09:55 Number of STITCHING DEPARTMENT SUPERVISOR Visits 0 Physical Therapy Visit Comments Patient Comments agreeable to do PT M4 PT-IP Mobility and Gait Start: 06/05/25 12:34 Freq: NEEDED Status: Active Protocol: Document 06/05/25 09:25 AB (Rec: 06/05/25 12:47 AB [id number]) PT-Bed Mobility Assessment Supine to Sit Supine to Sit Standby Assistance PT-Transfer Assessment Sit to and From Stand Sit to and from Minimal Assistance,1 Person Assistance,Use of Upper Stand Extremities Equipment Transfer Assistive Gait Belt,Front Wheeled Walker Device Orthotic/Prosthetic No Devices or Brace: Transfers Transfer Destination Chair Transfer Technique ambulated Transfer Ability Level of Assist Minimal Assistance,1 Person Assistance,Use of Upper Extremities Comments Mobility Comments pt in bed and agreed to do PT. obtained PLOF and home set up. BP: 118/66 O2 sat: 97% ND: 88. completed supine to sit SBA. able to sit on EOB SBA. sit to stand min A and ambulated using FWW ~ 15 ft. pt agreed to sit up on the chair. positioned pt on the chair. call light and table placed within reach. Gait Assessment Gait Gait Assistance Minimum Assistance Required: Distance (Feet) 15 Able to Maintain Yes Weight Bearing Status During Gait Assistive Devices Assistive Device Gait Belt,Front Wheeled Walker Orthotic/Prosthetic No Devices or Brace: Gait Deviations General Gait Pattern Decreased Stride Length,Decreased Feet Clearance, Lateral Trunk Lean,Step-to Gait Factors Limiting Gait Function Factors Limiting Decreased Activity Tolerance,Decreased Strength, Gait Function Difficulty Following Directions,Limited Range of Motion ,Poor Balance,Poor Safety Awareness PT-Balance Assessment Sitting Balance and Reactions Static Sitting Good Balance Ability Dynamic Sitting Good Balance Ability Standing Balance and Reactions Static Standing Fair Balance Ability Dynamic Standing Fair Balance Ability Device Used FWW M5 PT-IP Objective Assessments Start: 06/05/25 12:34 Freq: NEEDED Status: Active Protocol: Document 06/05/25 09:25 AB (Rec: 06/05/25 12:47 [id number]) Orientation Orientation/Cognition Level of Alertness Alert Orientation Name,Place,Situation Language Function Hard of Hearing Ability Safety Awareness Decreased Safety Awareness Memory Description Short Term Impaired,Computing Services Director Impaired Gross Range of Motion Lower Extremity ROM Assessment Within Functional Limits Strength Lower Extremity Strength Assessment Within Functional Limits Muscle Tone Muscle Tone WNL Yes M6 PT-IP Treatment Start: 06/05/25 12:34 Freq: NEEDED Status: Active Protocol: Document 06/05/25 09:25 AB (Rec: 06/05/25 12:47 AB [id number]) Physical Therapy Treatment Education Education Provided Safety M7 PT-IP Assessment and Plan Start: 06/05/25 12:34 Freq: NEEDED Status: Active Protocol: Document 06/05/25 09:25 AB (Rec: 06/05/25 12:47 AB [id number]) PT Summary Assessment and Plan Potential Rehabilitation Fair Potential Status of Condition Evolving at Evaluation Summary Impairments Pain,ROM,Strength,Balance,Coordination,Sensation,Tone, Cognition,Bed Mobility,Transfers,Gait,Activity Tolerance Assessment Summary pt is an 84 y/o F who is admitted for colitis. pt requiring min A for transfers and ambulation using FWW and presents with decrease activity tolerance affecting mobility independence. d/c plan depending on progress: SNF vs home with assistance and HHPT. Goals Bed Mobility Goal Independent Transfer Goal Independent,Front Wheeled Walker Gait Goal Independent,Front Wheel Walker Gait Distance 100 Other Goals improve transfers/ambulation using SPC ~ 50 ft SBA up/down 6 steps R rail ascending SBA Days to Meet Goals 10 Frequency of Treatment Frequency Of Once a Day Treatment Treatment Plan Physical Therapy Bed Mobility Training,Transfer Training,Gait Training, Treatment Plan Therapeutic Exercise,Balance Retraining,Discharge Planning,Hot or Cold Pack,Neuromuscular Re-ed, Coordination Retraining Precautions Other Precautions falls Recommendations To Nursing Amount of Assist 1 Person Assist Needed Discharge Recommendations PT Discharge Home with 02/04 Assist Available,Home Health,SNF Rehab, Recommendations Home vs SNF Transportation Needs Private Vehicle,Wheelchair/Cabulance at Discharge - PT assist 1
--- NOTE | 2025-06-05 11:41 | P.PN_ITS ---
Subjective Subjective Interval history: Chief complaint: Weakness Narrative: Past medical history of CHF, hypertension, chronic back pain, COPD, neuropathy and hypertension presents with complaint of generalized weakness. Per the patient's report, the patient lives at home with her son and grandson. 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 However the patient states that when she was home she was too weak to get to the bathroom safely and had a incontinence of stool. The patient states that her son and grandsons is not able to adequately care for her. The patient however denies any fever, chills, nausea, vomiting, diarrhea, chest pain or shortness of breath. In the emergency room, the patient was hemodynamically stable. Labs were done but were relatively benign viral respiratory panel as well as UA were negative for any sign of infection. CT of the abdomen however shows signs of colitis. Lactic came back normal though. Per CT scan colitis could be infectious versus ischemic. The case was discussed with hospitalist on-call Dr. Sanchez who recommended that we admit the patient and monitor overnight. Again the patient did not have significant abdominal pain. 06/04: The patient reports 5/10 infra-umbilical abdominal pain without nausea, vomiting, diarrhea or constipation, with a bowel movement while in the emergency department without bleeding. She states she feels very weak. No chest pain or shortness of breath. She is seen with her son Damon in the room. She affirms DNR status on discussion. Imaging: Abdomen/pelvis CT 06/04/2025 1. Findings again suggestive of colitis extending from the distal transverse colon to the mid descending colon. This may be of inflammatory/infectious etiology, possibly also ischemic colitis in this region. 2. No signs of complications. Head CT 06/04/2025 Stable senescent changes, no acute intracranial abnormality seen. Chest xray 06/04/2025 Stable COPD with no new consolidation or pleural effusion. Chest CT 06/03/2025: 1. Advanced emphysematous change. The bibasilar predominance raises the question of alpha 1 antitrypsin deficiency. 2. There is no suspicious lesion in the area noted on the chest film in the right apex. 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 Comment: Consider nonemergent PET-CT for further evaluation. Assessment & Plan narrative: Colitis. Admit the patient to medical observation. Of note the patient is not septic and lactic acid is normal. Patient does have significant LVH to suggest acute ischemic colitis. However Dr. Sanchez from general surgery was consulted by ER physician and recommends conservative care. Will advance patient to general liquid if tolerated. Stop IV fluid. Pain control. Will hold off any antibiotic at this time. Will treat conservatively. Generalized weakness. PT OT and will likely need home health versus long-term care facility placement. Hypokalemia. Replete orally and monitor. COPD. No sign of exacerbation. Continue home inhalers. Lung mass on CT scan. Will need follow-up as outpatient for further workup or management. Hypertension. Monitor blood pressure and resume home medication accordingly. CHF. No sign of exacerbation. She is n.p.o. will have gentle IV fluid and monitor I's and O's and daily weights. Hold home diuretics for now. Neuropathy. Continue home gabapentin. DVT prophylaxis enoxaparin subcu. CODE STATUS DNR/DNI Disposition likely home in 1 to 2 days with home health Exam Vital Signs (past 8 hours): - 06/05/25 04:00 06/05/25 07:54 06/05/25 08:00 Temperature 97.5 F L 97.7 F Pulse Rate 86 84 Respiratory Rate 18 18 Blood Pressure 167/84 H 126/68 Pulse Oximetry 93 92 Oxygen Delivery Method Room Air Oxygen Flow Rate 0 06/05/25 09:40 Temperature Pulse Rate 96 H Respiratory Rate 22 Blood Pressure Pulse Oximetry 94 Oxygen Delivery Method Room Air Oxygen Flow Rate Oxygen Delivery Method Room Air Oxygen Flow Rate 0 Objective Labs 06/05/25 05:07 06/05/25 05:07 Labs: Laboratory Results - last 24 hr 06/04/25 06/04/25 06/04/25 17:50 19:33 20:05 WBC 8.3 RBC 4.13 Hgb 11.2 L Hct 34.3 L MCV 83.0 MCH 27.2 MCHC 32.8 RDW 17.1 H Plt Count 294 Neut % (Auto) 63.2 Lymph % (Auto) 22.4 L [place] % (Auto) 9.1 Eos % (Auto) 3.7 Baso % (Auto) 1.6 Neut # (Auto) 5200 Lymph # (Auto) 1900 [place] # (Auto) 800 Eos # (Auto) 300 Baso # (Auto) 100 Sodium 140 Potassium 3.8 Chloride 106 Carbon Dioxide 28 BUN 33 H Creatinine 1.11 H Estimated GFR 50 L BUN/Creatinine Ratio 29.7 H Glucose 116 H Lactate Calcium 9.6 Total Bilirubin 0.5 AST 31 ALT 16 Alkaline Phosphatase 122 Total Creatine Kinase 36 Troponin I 0.013 Total Protein 7.2 Albumin 4.1 Globulin 3.1 Albumin/Globulin Ratio 1.3 Lipase 199 D Urine Color Yellow Urine Appearance Clear Urine pH 5.5 Ur Specific [place] 1.010 Urine Protein Negative Urine Glucose (UA) Negative Urine Ketones Negative Urine Occult Blood Trace-intact Urine Nitrate Negative Urine Bilirubin Negative Urine Urobilinogen 1.0 Ur Leukocyte Esterase Negative Urine RBC 1-5/hpf Urine WBC None seen Ur Squamous Epith Cells None seen Ur Renal Epithelial Cell 0-1/hpf Urine Bacteria Occasional (0-1) Ur Culture Indicated? Cult not indicated Vol Urine Centrifuged 10ml (spun) SARS-CoV-2 (PCR) Negative Influenza A (RT-PCR) Flu a negative Influenza B (RT-PCR) Flu b negative RSV (PCR) Negative 06/04/25 06/04/25 06/05/25 21:36 22:10 05:07 WBC 9.0 RBC 3.49 L Hgb 9.6 L Hct 28.5 L MCV 81.5 MCH 27.6 MCHC 33.8 RDW 16.9 H Plt Count 242 Neut % (Auto) 66.8 Lymph % (Auto) 21.0 L [place] % (Auto) 8.0 Eos % (Auto) 3.2 Baso % (Auto) 1.0 Neut # (Auto) 6000 Lymph # (Auto) 1900 [place] # (Auto) 700 Eos # (Auto) 300 Baso # (Auto) 100 Sodium 138 Potassium 3.1 L Chloride 110 H Carbon Dioxide 23 BUN 21 H Creatinine 0.83 Estimated GFR > 60 BUN/Creatinine Ratio 25.3 H Glucose 82 Lactate 0.8 Calcium 8.5 Total Bilirubin 0.4 AST 24 ALT 12 Alkaline Phosphatase 109 Total Creatine Kinase Troponin I 0.012 Total Protein 6.0 L Albumin 3.4 L Globulin 2.6 Albumin/Globulin Ratio 1.3 Lipase Urine Color Urine Appearance Urine pH Ur Specific [place] Urine Protein Urine Glucose (UA) Urine Ketones Urine Occult Blood Urine Nitrate Urine Bilirubin Urine Urobilinogen Ur Leukocyte Esterase Urine RBC Urine WBC Ur Squamous Epith Cells Ur Renal Epithelial Cell Urine Bacteria Ur Culture Indicated? Vol Urine Centrifuged SARS-CoV-2 (PCR) Influenza A (RT-PCR) Influenza B (RT-PCR) RSV (PCR) PFSH Medical History Incomplete bladder emptying ARF (acute renal failure) Cat bite of forearm Carotid artery disease Mobitz type 2 second degree AV block CHF (congestive heart failure) Ganglion cyst COPD (chronic obstructive pulmonary disease) Hypertension Depression Vision disorder Psoriasis (~1999) Acne Fibromyalgia Chronic back pain Measles Chicken pox Herpes (~1999) Fibroids Endometriosis History of urinary incontinence Irritable bowel syndrome Diverticular disease Colon polyps Ischemic colitis Surgical History Anesthesia History of tonsillectomy History of appendectomy History of bilateral oophorectomies H/O: hysterectomy Pacemaker Family History Father Diabetes mellitus Mother Diabetes mellitus Brother Diabetes mellitus Sister Stroke Social History marital status: number of children: 3 household members: family lives independently: Yes alcohol intake: current substance use type: does not use IH PROFEE Evs Manager Document charge(s): Yes
[2025-06-05 11:46] LABS: Lactate (Lactic Acid) 1.2 mmol/L (0.7-2.1)
[2025-06-05 12:22] LABS: HEMOLYSIS < 15 (0-50); Potassium 3.7 mmol/L (3.4-5.1)
--- NOTE | 2025-06-05 14:40 | OT.IP.EVAL ---
Current Diagnoses Weakness (06/04/25) Past Medical History (Last Reviewed 05/15/25 @ 16:11 by Mir Bingham DO) Acne ARF (acute renal failure) Carotid artery disease Cat bite of forearm CHF (congestive heart failure) Chicken pox Chronic back pain Colon polyps COPD (chronic obstructive pulmonary disease) Depression Diverticular disease Endometriosis Fibroids Fibromyalgia Ganglion cyst Herpes (~1999) History of urinary incontinence Hypertension Incomplete bladder emptying Irritable bowel syndrome Ischemic colitis Measles Mobitz type 2 second degree AV block Psoriasis (~1999) Vision disorder Surgical History (Last Reviewed 05/15/25 @ 16:11 by Mir Bingham DO) Anesthesia H/O: hysterectomy History of appendectomy History of bilateral oophorectomies History of tonsillectomy Pacemaker Occupational Therapy Inpatient Evaluation/Re-Eval M1 PT/OT-IP Prior Functional Status Start: 06/05/25 12:34 Freq: NEEDED Status: Active Protocol: Document 06/05/25 14:41 [facility] (Rec: 06/05/25 14:53 [facility] Desktop) Medical Review Prior Functional Status Medical History Yes Reviewed Communication able to make needs known Mobility and Gait pt stated that she was modified independent with all mobilities and ambulation using a FWW most of the time but uses SPC in her bedroom since FWW will not fit Activities of Daily Pt states able to do ADL needs and has caregivers that Living and IADL's assist with IADL needs. Son assist with bills. Pt not sure who assist with meds at this time. Social History Household Members family Living Arrangements House Number of Floors ( Two Floors Floors) Number of Stairs To pt stays on main level of the house Enter/Railing? 6 steps R rail ascending to enter from the garage Home Environment Standard Height Toilet,Tub/Shower Home Equipment Front Wheel Walker,Straight Cane,Shower Seat without Backrest,Hand Held Shower,Grab Bars In Shower Additional Social Grandson lives with pt but will not be able to assist History Comment pt pt has somebody that comes in 2x/week to assist with manager of learning Pt states at times she is at home by herself. M2 OT-IP Current Condition Start: 06/05/25 14:40 Freq: Status: Active Protocol: Document 06/05/25 14:41 [facility] (Rec: 06/05/25 14:53 [facility] Desktop) Occupational Therapy Current Condition Current Condition Evaluation Date 06/05/25 Treatment Diagnosis Colitis, decreased activity tolerance Diagnosis Onset Date 06/04/25 M3 OT- IP Subjective and Pain Start: 06/05/25 14:40 Freq: Status: Active Protocol: Document 06/05/25 14:41 [facility] (Rec: 06/05/25 14:53 [facility] Desktop) OT- Subjective Occupational Therapy Visit Type Type Initial Evaluation Visit Start Time 14:10 Visit Stop Time 14:40 Occupational Therapy Visit Comments Patient Comments Pt agreed to use the toilet. Patient/Caregiver TO get better and go home. Goals OT Pain Assessment Pain When Pain Assessed During Mobility Pain Present Pain Present Pain Reported Location Generalized Pain Behaviors Facial Grimacing M4 OT- IP ADL's Start: 06/05/25 14:40 Freq: Status: Active Protocol: Document 06/05/25 14:41 [facility] (Rec: 06/05/25 14:53 [facility] Desktop) OT [id number] Comments OT Self-Feeding NOt at meal time. Comments OT ADL-Grooming Comments OT Grooming Comments Pt able to wash her hand while at the sink with FWW. OT ADL-Oral Care Comments Oral Care Comments Pt too tired to perform at this time. OT ADL-Dressing General Eval Lower Body Dressing Minimal Assistance Ability Comments OT Dressing Comments Assist for brief management needs. OT ADL-Toileting General Evaluation Toileting Ability Minimal Assistance,Total Assistance Areas Needing Manage Clothing Assistance Comments OT Toileting Using purewick, encouraged pt to use the toilet/BSC at least Comments during the day. Assist with brief management needs.Pt complaining of burning sensation in perineal area and requesting cream, nursing notified. OT ADL-Bathing Comments OT Bathing Comments Due to decreased activity tolerance pt would benefit from assist. M5 OT- IP IADL's Start: 06/05/25 14:40 Freq: Status: Active Protocol: Document 06/05/25 14:41 [facility] (Rec: 06/05/25 14:53 [facility] Desktop) OT-Instrumental Activities of Daily Living Home Safety Awareness Awareness of Need Good Awareness for Assistance at Home Ability to Problem Able to Problem Solve Solve Emergency Situations Medication Management Medication Pt confused about her medications. Management Comments Money Management Money Management Caregiver Provides Assistance Meal Preparation Meal Preparation Caregiver Provides Assist Municipal Engineer Municipal Engineer Caregiver Provides Assist M6 OT- IP Functional Cognition Start: 06/05/25 14:40 Freq: Status: Active Protocol: Document 06/05/25 14:41 [facility] (Rec: 06/05/25 14:53 [facility] Desktop) Cognitive Factors Limiting Selfcare Function Cognitive Ability Level of Alertness Alert,Confusional State Patient Orientation Name,Place,Situation Attention Span Capable of Focused Attention,Unable to Sustain Ability Attention Ability to Follow Able to Follow One Step Commands with Increased Time, Commands Able to Follow One Step Commands with Repetition Cognitive Comments Cognitive Assessment Pt a bit confused and needing vc to follow commands for Comments ADL and mobility needs. VC to keep the FWW in front of her and to use her arms to push up from the bed for safety. OT- Vision and Hearing OT- Hearing Assessment OT- Hearing Hearing Impaired Assessment OT- Vision Assessment Visual Acuity Glasses All The Time Visual Attentiveness WFL Occular Pursuits WFL M7 OT- IP Mobility and Balance Start: 06/05/25 14:40 Freq: Status: Active Protocol: Document 06/05/25 14:41 [facility] (Rec: 06/05/25 14:53 [facility] Desktop) OT- Bed Mobility Assessment Supine to Sit Supine to Sit Assist Contact Guard Assistance Sit to Supine Sit to Supine Assist Contact Guard Assistance OT-Transfer Assessment Sit to and From Stand Sit to and from Contact Guard Assistance Stand Transfers Transfer Ability Contact Guard Assistance Technique Transfer Destination Bed,Toilet Transfer Technique Stand Step Pivot Devices Transfer Assistive Gait Belt,Front Wheeled Walker Devices Comments Mobility Comments Pt CGA for mobility needs and tends to keep the FWW too fair in front of her. Pt a bit unsteady on her feet and just able to tolerate getting to the toilet, sink and back to bed with FWW. OT- Balance Assessment Sitting Balance and Reactions Static Sitting Good Balance Ability Dynamic Sitting Good Balance Ability Standing Balance and Reactions Static Standing Fair Balance Ability Dynamic Standing Fair Balance Ability M8 OT- IP Objective Assessments Start: 06/05/25 14:40 Freq: Status: Active Protocol: Document 06/05/25 14:41 [facility] (Rec: 06/05/25 14:53 [facility] Desktop) OT Gross Range of Motion Upper Extremity Range of Motion Assessment Within Functional Limits OT Strength Upper Extremity Strength Assessment Within Functional Limits M9 OT- IP Assessment and Plan Start: 06/05/25 14:40 Freq: Status: Active Protocol: Document 06/05/25 14:41 [facility] (Rec: 06/05/25 14:53 [facility] Desktop) OT Summary Assessment and Plan Potential Rehabilitation Good Potential Analytic Complexity Moderate at Evaluation Summary OT Impairments Pain,Balance,Functional Cognition,Functional Mobility, Dressing,Toileting,Bathing,Toilet Transfers,Shower Transfers,Activity Tolerance Progress Towards Slow Progress due to Medical Issues,Slow Progress due Goals to Activity Tolerance,Slow Progress due to Cognition Assessment Summary Pt MOD complexity and main barrier are steps, decreased activity tolerance and endurance. Pt now needing one person assist for ADL and mobility needs. Pt feels that she is not at her baseline and is aware that she would benefit from more assist at home. When medically stable, pt will benefit from skilled rehab versus home with 24/7 available assist and home health. Goals Self-Feeding Goal Independent Grooming Goal Independent Dressing Goal Independent Toileting Goal Independent Bathing Goal Independent Toilet Transfer Goal Independent Shower Transfer Goal Independent Days to Meet Goals 15 Frequency of Treatment Other frequency 5x/week Treatment Plan OT Treatment Plan ADL Training,Functional Cognition Training,Functional Mobility,Patient/Family Education,Discharge Planning Other Treatment SLUMS Recommendations and Next Treatment Focus Discharge Recommendations OT Discharge Home with 24/7 Assist Available,Home Health,SNF Rehab, Recommendations Home vs SNF Home [place] [facility] [place] Private Vehicle at Discharge
--- NOTE | 2025-06-05 15:51 | CM.DPNOTE ---
DCP Continued: Reviewed EMR and team rounds for pt?s medical status. Per hospitalist, pt diagnosed with colitis and will obtain potassium replacement therapy; recommending home health. Per PT, recommending home with home health vs. [facility] care. Per RN, pt son, Damon, visited this morning. DCP entered room, discussed recommendations of hospitalist. Pt agreeable to home health referral, preference for her caregiver agency of [facility]. MANUAL MACHINIST discussed that this agency does not have services needed for home health. Pt then agreeable to any home health agency. Pt declines SNF Rehab at this time. DCP identified that [facility] does not provide skilled care. DCP sent initial referral to [facility] per vendor melissa, orders completed and sent; pending acceptance. DCP Consideration: Investigating if pt has a NANDO wrapper caser? Plan: Anticipating dc home with family and home health on 06/07 or when medically cleared. CM Team will continue to follow for coordination of discharge plans. CHAPARRO Alonso
[2025-06-05] MEDS: MELATONIN 3 MG TABLET PO (20:20)
[2025-06-05] MEDS: diphenhydrAMINE 25 MG TABLET PO (20:20)
[2025-06-05] MEDS: GABAPENTIN 300 MG CAPSULE PO (20:20)
[2025-06-05] MEDS: ATORVASTATIN 20 MG TABLET 80 MG PO (20:20)
[2025-06-06] VITALS (7 sets, daily range): BP systolic 111–146; BP diastolic 55–82; PULSE 76–85; RESP 14–20; TEMP 35.8–36.4; O2SAT 92–95
[2025-06-06 06:52] LABS: Add Manual Diff / Slide Review NO; Hematocrit 27.9 % (36-46); Hemoglobin 9.2 g/dL (12.0-16.0); Lymphocytes Absolute Auto 1800 /uL (1100-4500); Mean Corpuscular HGB Conc 33.1 % (30-36); Mean Corpuscular Hemoglobin 27.4 PG (26-34); Mean Corpuscular Volume 82.7 fL (80-100); Platelet Count 236 X10^3/uL (150-400)
[2025-06-06 07:00] LABS: Blood Urea Nitrogen 19 mg/dL (7-17); Calcium 8.7 mg/dL (8.4-10.2); Carbon Dioxide 24 mmol/L (22-32); Chloride 110 mmol/L (98-107); Estimated Glomerular Filt Rate > 60 mL/min (>60); Glucose 83 mg/dL (70-99); HEMOLYSIS < 15 (0-50); Potassium 3.8 mmol/L (3.4-5.1); Sodium 139 mmol/L (137-145)
--- NOTE | 2025-06-06 09:17 | PM.DS.IH.1 ---
History of Present Illness History of Present Illness Date Patient Seen: 06/06/25 Time Patient Seen: 07:50 Chief complaint: Weakness Narrative: Past medical history of CHF, hypertension, chronic back pain, COPD, neuropathy and hypertension presents with complaint of generalized weakness. Per the patient's report, the patient lives at home with her son and grandson. 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 However the patient states that when she was home she was too weak to get to the bathroom safely and had a incontinence of stool. The patient states that her son and grandsons is not able to adequately care for her. The patient however denies any fever, chills, nausea, vomiting, diarrhea, chest pain or shortness of breath. In the emergency room, the patient was hemodynamically stable. Labs were done but were relatively benign viral respiratory panel as well as UA were negative for any sign of infection. CT of the abdomen however shows signs of colitis. Lactic came back normal though. Per CT scan colitis could be infectious versus ischemic. The case was discussed with hospitalist on-call Dr. Sanchez who recommended that we admit the patient and monitor overnight. Again the patient did not have significant abdominal pain. Discharge Providers Provider Date of admission: 06/04/25 22:31 Discharge Date: 06/06/25 Primary care physician: Mir Bingham DO Consults: 06/04/25 17:58 Consult to [facility] - Protective Signal Installer Stat Comment: Protective Signal Installer Consult needed for:: Unable to care for self No caregiver at home 06/04/25 22:29 Consult to Occupational Therapy Evaluate & Treat Comment: Physician Instructions: Evaluate and treat Consult to Physical Therapy Evaluate & Treat Comment: Physician Instructions: Evaluate and Treat 06/05/25 10:38 Consult to Pharmacy Routine Comment: Order per MAR on assessment this AM 06/05/25 16:05 Consult to Home Health Routine Comment: RN, PT, Lorri, [employer] Reason For Exam: Colitis, Weakness Discharge provider: Denzel Gonzalez MD Summary Hospital Course Discharge Diagnosis: Colitis. Generalized weakness. Hypokalemia. COPD. Lung mass on CT scan. Hypertension. CHF. Neuropathy. Hospital Course: Admit the patient to medical observation. Of note the patient was not septic and lactic acid was normal. Patient does have significant findings to suggest acute ischemic colitis. Dr. Sanchez from general surgery was consulted by ER physician and recommends conservative care. No antibiotics were administered and she was advanced to a general diet without problems. Hypokalemia was repleted orally. Her COPD was stable. A lung mass noted on CT scan will need follow-up as outpatient for further workup or management. She was able to get up and walk with physical therapy, and arrangements were made for ongoing outpatient home health services. No other issues arose. Status at Discharge Cognitive/behavioral status at discharge: oriented Functional status at discharge: uses cane/walker Overall status at discharge: patient is progressing back to baseline Time Spent with Patient Time spent: Greater than 30 minutes Exam Vital Signs (past 8 hours): - 06/06/25 05:00 Temperature 97.4 F L Pulse Rate 81 Respiratory Rate 18 Blood Pressure 125/82 Pulse Oximetry 92 Oxygen Flow Rate 0 Oxygen Delivery Method Room Air Oxygen Flow Rate 0 Narrative Exam Narrative: GENERAL: This is a well-nourished, well-developed patient, in no apparent distress. EYES: Pupils equal round and reactive. Extraocular motions intact. No scleral icterus. No injection or drainage. ENT: Mucous membranes pink and moist. NECK: Trachea midline. No JVD, bruits or lymphadenopathy. Supple, nontender, no meningeal signs. CARDIOVASCULAR: Regular rate and rhythm without murmurs, gallops, or rubs. RESPIRATORY: Decreased breath sounds, occasional wheezes, in no respiratory distress. GASTROINTESTINAL: Abdomen soft, non-tender, nondistended. EXTREMITIES: No clubbing, cyanosis, or edema. NEUROLOGIC: Alert, oriented, speech fluent, full upper and lower motor strength, no focal deficits evident. DERMATOLOGIC: No rashes or skin lesions. Objective Imaging *: Radiologist's impression: Abdomen/pelvis CT 06/04/2025 1. Findings again suggestive of colitis extending from the distal transverse colon to the mid descending colon. This may be of inflammatory/infectious etiology, possibly also ischemic colitis in this region. 2. No signs of complications. Head CT 06/04/2025 Stable senescent changes, no acute intracranial abnormality seen. Chest xray 06/04/2025 Stable COPD with no new consolidation or pleural effusion. Chest CT 06/03/2025: 1. Advanced emphysematous change. The bibasilar predominance raises the question of alpha 1 antitrypsin deficiency. 2. There is no suspicious lesion in the area noted on the chest film in the right apex. 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 Comment: Consider nonemergent PET-CT for further evaluation. Labs 06/06/25 05:39 06/06/25 05:39 Labs: Laboratory Results - last 24 hr 06/05/25 06/06/25 11:15 05:39 WBC 6.2 RBC 3.37 L Hgb 9.2 L Hct 27.9 L MCV 82.7 MCH 27.4 MCHC 33.1 RDW 16.9 H Plt Count 236 Neut % (Auto) 54.2 Lymph % (Auto) 29.3 [place] % (Auto) 9.4 Eos % (Auto) 5.7 H Baso % (Auto) 1.4 Neut # (Auto) 3300 Lymph # (Auto) 1800 [place] # (Auto) 600 Eos # (Auto) 400 Baso # (Auto) 100 Sodium 139 Potassium 3.7 3.8 Chloride 110 H Carbon Dioxide 24 BUN 19 H Creatinine 0.90 Estimated GFR > 60 BUN/Creatinine Ratio 21.1 Glucose 83 Lactate 1.2 Calcium 8.7 PFSH Medical History Acne ARF (acute renal failure) Carotid artery disease Cat bite of forearm CHF (congestive heart failure) Chicken pox Chronic back pain Colon polyps COPD (chronic obstructive pulmonary disease) Depression Diverticular disease Endometriosis Fibroids Fibromyalgia Ganglion cyst Herpes (~1999) History of urinary incontinence Hypertension Incomplete bladder emptying Irritable bowel syndrome Ischemic colitis Measles Mobitz type 2 second degree AV block Psoriasis (~1999) Vision disorder Surgical History Anesthesia H/O: hysterectomy History of appendectomy History of bilateral oophorectomies History of tonsillectomy Pacemaker Family History Father Diabetes mellitus Mother Diabetes mellitus Brother Diabetes mellitus Sister Stroke Social History marital status: number of children: 3 household members: family lives independently: Yes alcohol intake: current substance use type: does not use Discharge Plan Discharge Plan Patient Disposition: Home Health Service Provider Discharge Comment: Followup with Dr. Bingham within 1 week Discharge orders & Medications Prescriptions: Continued cyproheptadine 4 mg tablet 4 mg PO BID Qty: 180 2RF atorvastatin 80 mg tablet 80 mg PO BEDTIME Qty: 90 3RF prednisone 20 mg tablet 40 mg PO DAILY Qty: 10 0RF bupropion HCl 150 mg tablet sustained-release 12 hr 150 mg PO DAILY Qty: 90 1RF gabapentin 300 mg capsule 300 mg PO ONCE PM Qty: 90 1RF fluticasone propion-salmeterol [Advair Diskus] 250-50 mcg/dose blister with device 1 inh inhalation BID Qty: 60 5RF diclofenac sodium [Voltaren Arthritis Pain] 1 % gel 2 g topical QID Qty: 100 5RF Rx Instructions: apply to single elbow, wrist or hand; for hand includes palm/fingers/back of hand triamterene-hydrochlorothiazid 37.5-25 mg tablet 0.5 tab PO DAILY Qty: 45 3RF mirabegron [Myrbetriq] 25 mg tablet extended release 24 hr 25 mg PO DAILY Qty: 90 3RF estradiol 0.01 % (0.1 mg/gram) cream 0.25 appful vaginal BEDTIME Qty: 42.5 3RF Rx Instructions: Apply small amount with finger to vaginal opening and labia at bedtime for 2 weeks, then twice weekly thereafter clopidogrel 75 mg tablet 75 mg PO DAILY Qty: 90 3RF carvedilol 3.125 mg tablet See Rx Instructions .ROUTE .COMPLEX Qty: 180 3RF Dose Instruction: TAKE ONE TABLET BY MOUTH TWICE DAILY WITH FOOD Rx Instructions: TAKE ONE TABLET BY MOUTH TWICE DAILY WITH FOOD albuterol sulfate 90 mcg/actuation aerosol powdr breath activated 2 inh inhalation Q6H PRN (Reason: shortness of breath) Qty: 1 8RF (DME) contour plus See Rx Instructions .Route .MEDSUPPLY Qty: 28 12RF Rx Instructions: incontinence ultimate bladder pads. medline albuterol sulfate 2.5 mg /3 mL (0.083 %) solution for nebulization 2.5 mg inhalation Q4-6H PRN (Reason: shortness of breath or wheezing) Qty: 75 8RF benzonatate 100 mg capsule 100 mg PO TID PRN (Reason: cough) Qty: 20 2RF fesoterodine [Toviaz] 4 mg tablet extended release 24 hr 4 mg PO DAILY Qty: 90 1RF fluticasone propion-salmeterol 250-50 mcg/dose blister with device 1 inh inhalation BID Qty: 60 0RF Follow up/Referrals: Mir Bingham DO [Primary Care Provider, [facility]] Visit Report/Discharge Packet Stand Alone Forms: Patient Portal/API, Stroke Signs & Symptoms Discharge Data Primary Care Provider: Mir Bingham Attending Provider: Ramon Guardado Admit Date/Time: 06/04/25 22:31 Quality MIPS - Admit I confirm the patient?s Advance Care Plan is present, Code status is documented, Surrogate decision maker is in patient?s record [If Yes, STOP here]: Yes MIPS - Meds 'Current medications' to include all prescriptions, [id number] products, herbals, cannabis/cannabidiol products, and vitamin/mineral/dietary (nutritional) supplements. I have utilized all available resources to obtain, update, or review the patient?s current medications. [If Yes, STOP here]: Yes MIPS - DC The patient has a history of heart transplant or Left Ventricular Assist Device (LVAD). If yes, STOP here.: No The patient has current or prior documentation of left ventricular ejection fraction (LVEF) less than or equal to 40%, or moderate or severely depressed left ventricular systolic function.: No A. The patient was prescribed or already taking an Angiotensin-Converting Enzyme (BRIANNE) Inhibitor, or Angiotensin Receptor Devorah (ARB).: No B. The patient was prescribed or already taking a beta-devorah. [If Yes to Both A & B, STOP here]: Yes Patient not prescribed/taking BRIANNE or ARB, no reason given.: No Patient not prescribed/taking beta-devorah, no reason given.: No PROFEE Charge Codes Discharge inpatient/observation: 72080
[2025-06-06] MEDS: CLOPIDOGREL 75 MG TABLET PO (10:16)
[2025-06-06] MEDS: SODIUM CHLORIDE 0.9% FLUSH 10 ML IV ×2 (10:16→21:00)
--- NOTE | 2025-06-06 10:51 | PC.NURSE ---
Day shift: Pt wanted to sleep until past 1000 today. AM meds given given after 1000 today.
[2025-06-06] MEDS: ALBUTEROL 2.5 MG/3 ML NEB (ADULT) INH ×3 (11:26→20:09)
[2025-06-06] MEDS: BUDESONIDE 0.5 MG/2 ML NEB INH ×2 (11:26→20:10)
--- NOTE | 2025-06-06 12:55 | PT.IPTN ---
Current Diagnoses Weakness (06/04/25) Physical Therapy Treatment Note M2 PT-IP Current Condition Start: 06/05/25 12:34 Freq: NEEDED Status: Active Protocol: Document 06/05/25 09:25 AB (Rec: 06/05/25 12:47 AB [id number]) Physical Therapy Current Condition Current Condition Evaluation Date 06/05/25 Treatment Diagnosis colitis; difficulty in walking Onset Date 06/04/25 M3 PT-IP Subjective Start: 06/05/25 12:34 Freq: NEEDED Status: Active Protocol: Document 06/06/25 12:55 AB (Rec: 06/06/25 16:11 AB Desktop) Subjective Physical Therapy Visit Type Type Treatment Note Visit Start Time 12:55 Visit Stop Time 13:40 Number of WARPER FIXER Visits 0 M4 PT-IP Mobility and Gait Start: 06/05/25 12:34 Freq: NEEDED Status: Active Protocol: Document 06/06/25 12:55 AB (Rec: 06/06/25 16:11 AB Desktop) PT-Bed Mobility Assessment Supine to Sit Supine to Sit Standby Assistance PT-Transfer Assessment Sit to and From Stand Sit to and from Contact Guard Assistance,1 Person Assistance,Use of Stand Upper Extremities Equipment Transfer Assistive Gait Belt,Front Wheeled Walker Device Orthotic/Prosthetic No Devices or Brace: Transfers Transfer Destination Chair Transfer Technique ambulated Transfer Ability Level of Assist Minimal Assistance,1 Person Assistance,Use of Upper Extremities Comments Mobility Comments pt in bed and finishing up her lunch. son in room with pt. pt has d/c orders. talked to son regarding assistance needed for pt and son stated that pt's grandson lives with her but pt stated that grandson just got a foot amputation and will not be able to assist her. Son stated that they are going through medicaid for assistance. asked son if there is assistance at home for now until they can work through the medicaid assistance and son did not answer and stated that it should be on our records on what assistance the pt needs. informed son that pt's level of assistance is on PT notes but the hospital can recommend and give resources but it's up to pt and family to try to get assistance. informed son and pt that PT will inform ed case manager and to hopefully be able to talk to them. pt agreed to do PT. Son stated that he is leaving. pt completed supine to sit SBA. able to sit on EOB CGA. sit to stand CGA. ambulated ~ 50 ft initial CGA but midway min A and cues and cannot go further needing w/c to sit down. pt rested but stated that she cannot do stair climbing today and need 2 hours of rest. pt has 6 steps with R rail to enter the house. pt also stated that she has to walk ~ 200 ft to get into the house. informed pt to tell her son to put in chairs in between pathway to the house for pt to rest if needed. pt ambulated from w/c to chair ~ 25 ft min A and cues. positioned pt on the chair. call light and table placed within reach. informed ed case manager regarding pt's level of assistance and d/c plan. Gait Assessment Gait Gait Assistance Minimum Assistance Required: Distance (Feet) 50 Able to Maintain Yes Weight Bearing Status During Gait Assistive Devices Assistive Device Gait Belt,Front Wheeled Walker Orthotic/Prosthetic No Devices or Brace: Gait Deviations General Gait Pattern Decreased Stride Length,Decreased Feet Clearance,Step- to Gait Factors Limiting Gait Function Factors Limiting Decreased Activity Tolerance,Decreased Strength, Gait Function Difficulty Following Directions,Poor Balance,Poor Safety Awareness M5 PT-IP Objective Assessments Start: 06/05/25 12:34 Freq: NEEDED Status: Active Protocol: Document 06/05/25 09:25 AB (Rec: 06/05/25 12:47 AB [id number]) Orientation Orientation/Cognition Level of Alertness Alert Orientation Name,Place,Situation Language Function Hard of Hearing Ability Safety Awareness Decreased Safety Awareness Memory Description Short Term Impaired,Penitentiary Impaired Gross Range of Motion Lower Extremity ROM Assessment Within Functional Limits Strength Lower Extremity Strength Assessment Within Functional Limits Muscle Tone Muscle Tone WNL Yes M6 PT-IP Treatment Start: 06/05/25 12:34 Freq: NEEDED Status: Active Protocol: Document 06/06/25 12:55 AB (Rec: 06/06/25 16:11 AB Desktop) Physical Therapy Treatment Education Education Provided Safety M7 PT-IP Assessment and Plan Start: 06/05/25 12:34 Freq: NEEDED Status: Active Protocol: Document 06/06/25 12:55 AB (Rec: 06/06/25 16:11 AB Desktop) PT Summary Assessment and Plan Potential Rehabilitation Fair Potential Summary Impairments Pain,ROM,Strength,Balance,Coordination,Sensation,Tone, Cognition,Bed Mobility,Transfers,Gait,Activity Tolerance Progress Towards Slow Progress due to Activity Tolerance,Slow Progress - Goals Other Assessment Summary pt requiring CGA to min A with ambulation using FWW ~ 50 ft and unable to ambulate farther. pt with decrease activity tolerance affecting level of independence. pt also has decrease safety awareness affecting mobility independence and will require 24/7 assist at this time. pt lives with her grandson but will not be able to assist her. pt will benefit from SNF rehab. Goals Bed Mobility Goal Independent Transfer Goal Independent,Front Wheeled Walker Gait Goal Independent,Front Wheel Walker Gait Distance 100 Other Goals improve transfers/ambulation using SPC ~ 50 ft SBA up/down 6 steps R rail ascending SBA Days to Meet Goals 10 Frequency of Treatment Frequency Of Once a Day Treatment Treatment Plan Physical Therapy Bed Mobility Training,Transfer Training,Gait Training, Treatment Plan Therapeutic Exercise,Balance Retraining,Discharge Planning,Hot or Cold Pack,Neuromuscular Re-ed, Coordination Retraining Precautions Other Precautions falls Recommendations To Nursing Amount of Assist 1 Person Assist Needed Discharge Recommendations PT Discharge SNF Rehab Recommendations Transportation Needs Private Vehicle,Wheelchair/Cabulance at Discharge - PT assist 1
--- NOTE | 2025-06-06 14:06 | CM.DPC ---
CM spoke with PT at bedside. Patient is aware that she needs more help at home and a discharge with HH is not sufficient. Patient is agreeable to SNF for additional physical therapy. Patient requested [place] area.
[2025-06-06] MEDS: ACETAMINOPHEN 325 MG TABLET 650 MG PO (14:54)
--- NOTE | 2025-06-06 15:23 | CM.DPNOTE ---
DCP Cont Emailed referral to Clotilde at per patient preference. Clotilde reviewing, cannot take until Sunday at the earliest- need to work on [employer] MCR auth. Clotilde concerned about patient's home plan as well. Hospital exempt PASRR completed and signed by Dr Baldwin. CAYDEN
[2025-06-06] MEDS: GABAPENTIN 300 MG CAPSULE PO (20:35)
[2025-06-06] MEDS: MELATONIN 3 MG TABLET PO (20:35)
[2025-06-06] MEDS: ATORVASTATIN 20 MG TABLET 80 MG PO (20:35)
[2025-06-06] MEDS: diphenhydrAMINE 25 MG TABLET PO (20:36)
[2025-06-07] VITALS (9 sets, daily range): BP systolic 116–171; BP diastolic 68–85; PULSE 69–81; RESP 12–18; TEMP 36.2–37.6; O2SAT 93–99
[2025-06-07] MEDS: CLOPIDOGREL 75 MG TABLET PO (08:43)
[2025-06-07] MEDS: SODIUM CHLORIDE 0.9% FLUSH 10 ML IV ×2 (08:45→20:30)
[2025-06-07] MEDS: ENOXAPARIN 40 MG/0.4 ML SYRINGE SUBCUT (08:45)
[2025-06-07] MEDS: ALBUTEROL 2.5 MG/3 ML NEB (ADULT) INH ×5 (09:24→22:29)
[2025-06-07] MEDS: BUDESONIDE 0.5 MG/2 ML NEB INH ×2 (09:24→19:16)
--- NOTE | 2025-06-07 13:24 | P.PN_ITS ---
Subjective Subjective Interval history: 84-year-old female with chronic congestive heart failure, hypertension, chronic back pain, COPD, neuropathy admitted with generalized weakness. During her workup in the emergency department, imaging revealed a 1.4 cm mass that is concerning for possible left apical bronchogenic carcinoma. She returned home after being seen in the emergency department, but could not perform self-care. She is now readmitted and pending admission to [facility] for rehab. Patient reports she is not looking forward to going to senior living. She states it is typically cold and boring at nursing facilities. She notes that the last nursing facility she was at they wanted her ?to stay in bed?. She is hopeful she will only be at [facility] for a short period of time. She has no other complaints today Exam Vital Signs (past 8 hours): - 06/07/25 08:47 06/07/25 09:25 06/07/25 12:00 Temperature 97.3 F L 97.4 F L Pulse Rate 79 76 69 Respiratory Rate 16 18 17 Blood Pressure 171/85 H 126/68 Pulse Oximetry 93 93 96 Oxygen Flow Rate 0 0 Fraction of Inspired Oxygen 21 Fraction of Inspired Oxygen 21 SaO2/FiO2 Ratio 438 Oxygen Delivery Method Room Air Oxygen Flow Rate 0 Narrative Exam Narrative: GEN: Very pleasant elderly female, Alert and oriented x 3, NAD HEENT:NC, Face symmetric CHEST: Respiratory excursions symmetric, CTAB CV: RRR, no M/R/G ABD: Soft, NT/ND, BT present in all 4 quadrants, no organomegaly or masses EXTR: warm, well perfused, no C/C/E SKIN: warm and dry, no rash NEURO: Alert and oriented x 3, nonfocal Objective Labs 06/06/25 05:39 06/06/25 05:39 [facility] Medical History Acne ARF (acute renal failure) Carotid artery disease Cat bite of forearm CHF (congestive heart failure) Chicken pox Chronic back pain Colon polyps COPD (chronic obstructive pulmonary disease) Depression Diverticular disease Endometriosis Fibroids Fibromyalgia Ganglion cyst Herpes (~1999) History of urinary incontinence Hypertension Incomplete bladder emptying Irritable bowel syndrome Ischemic colitis Measles Mobitz type 2 second degree AV block Psoriasis (~1999) Vision disorder Surgical History Anesthesia H/O: hysterectomy History of appendectomy History of bilateral oophorectomies History of tonsillectomy Pacemaker Family History Father Diabetes mellitus Mother Diabetes mellitus Brother Diabetes mellitus Sister Stroke Social History marital status: number of children: 3 household members: family lives independently: Yes alcohol intake: current substance use type: does not use Assessment & Plan Assessment & Plan narrative: 1. Generalized weakness PT and OT recommended senior living for rehab. She is currently awaiting admission to [facility] with plan transferred there tomorrow. 2. Possible colitis Seen on abdominal pelvic CT on June 04. Findings showed colitis extending from the distal transverse colon to the mid descending colon. She was assessed by General surgery with no recommendations noted. She is asymptomatic presently. This was felt to be inflammatory or infectious, possibly ischemic in nature. She has not had any further loose stools, incontinence, or complaints of bloody stools. 3. 3.7 by 2.4 cm cavitary lesion, right upper lobe and new spiculated 1.4 cm left apical lobes suspicious for bronchogenic carcinoma Discussed with patient that she would need biopsy to determine whether this is in fact malignant in nature. Advised that her primary care should refer her appropriately for biopsy. 4. Possible alpha 1 antitrypsin deficiency Based on CT findings from June 03, it was noted she has extensive changes of pulmonary emphysema which is marked in the bases of the lungs suggesting possible alpha 1 antitrypsin deficiency. This could also be worked up on an outpatient basis with referral to pulmonology. 5. Chronic systolic CHF with last echocardiogram revealing an EF of 35-40% Currently appears euvolemic. Continues atorvastatin, carvedilol, clopidogrel. 6. Hypertension Blood pressures are stable. Remains on carvedilol. 7. COPD Stable on budesonide, albuterol nebulizers. 8. Neuropathy Continues gabapentin at bedtime Code status DNR DNI Prophylaxis On Lovenox Disposition Pending transfer to [facility], likely tomorrow Time-Based Coding :: [TOTAL MINUTES] spent with patient and on the chart (including review of chart, obtaining history, exam, reviewing outside data, placing orders, documenting exam and treatment plan, and counseling patient) on [DATE].
--- NOTE | 2025-06-07 14:26 | CM.DPNOTE ---
DCP note DIRECTOR COMPLIANCE reviewed EMR per provider, weakness is likely due to cancer diagnosis. more f/u is needed in OP setting to confirm. completed med list and scripts for anticipated dc tomorrow. per Clotilde at , sending for auth. unsure if that is a skillable diagnosis. DIRECTOR COMPLIANCE sent updated clinicals to Clotilde at . PASRR previously done. per previous notes, APS involvement. no word from APS today. P: SNF vs home with juan and Enriqueta PAYTON. SNF auth pending. will continue to follow closely for DCP Coordination DIANNA Sauceda
[2025-06-07] MEDS: GABAPENTIN 300 MG CAPSULE PO (20:30)
[2025-06-07] MEDS: MELATONIN 3 MG TABLET PO (20:30)
[2025-06-07] MEDS: ATORVASTATIN 20 MG TABLET 80 MG PO (20:30)
[2025-06-08 05:01] LABS: Add Manual Diff / Slide Review NO; Hematocrit 26.3 % (36-46); Hemoglobin 8.9 g/dL (12.0-16.0); Lymphocytes Absolute Auto 1700 /uL (1100-4500); Mean Corpuscular HGB Conc 34.0 % (30-36); Mean Corpuscular Hemoglobin 27.6 PG (26-34); Mean Corpuscular Volume 81.1 fL (80-100); Platelet Count 224 X10^3/uL (150-400)
[2025-06-08 05:07] LABS: Blood Urea Nitrogen 22 mg/dL (7-17); Calcium 8.7 mg/dL (8.4-10.2); Carbon Dioxide 26 mmol/L (22-32); Chloride 109 mmol/L (98-107); Estimated Glomerular Filt Rate > 60 mL/min (>60); Glucose 83 mg/dL (70-99); HEMOLYSIS < 15 (0-50); Potassium 4.3 mmol/L (3.4-5.1); Sodium 137 mmol/L (137-145)
[2025-06-08 08:00] VITALS: BP 148/78; PULSE 69; RESP 19; TEMP 36.3; O2SAT 95
[2025-06-08] MEDS: ENOXAPARIN 40 MG/0.4 ML SYRINGE SUBCUT (08:38)
[2025-06-08] MEDS: CLOPIDOGREL 75 MG TABLET PO (08:38)
[2025-06-08 09:08] VITALS: PULSE 84; RESP 18; O2SAT 96
[2025-06-08] MEDS: ALBUTEROL 2.5 MG/3 ML NEB (ADULT) INH ×2 (09:08→11:43)
[2025-06-08] MEDS: BUDESONIDE 0.5 MG/2 ML NEB INH (09:08)
[2025-06-08 11:43] VITALS: PULSE 74; RESP 18; O2SAT 98
--- NOTE | 2025-06-08 12:43 | CM.DPC ---
DCP Cont. Reviewed EMR and team rounds for pt's medical status and updates. Pt has been medically cleared for home d/c. She has improved and will d/c home with Enriqueta PAYTON to follow. FUNERAL DIRECTOR/EMBALMER/OWNER provided the [employer] application for family to complete at home and return to [facility] for in-home caregivers. Her grandson will be transporting her home. No further CM d/c needs are indicated at this time.
--- NOTE | 2025-06-08 12:53 | PC.NURSE ---
Pt is ready for discharge home with grandson. IV has been removed. Went over d/c instructions with Pt - discussed d/c meds, time of last dose, reviewed stroke education, encouraged fluid intake to prevent constipation or dehydration, encouraged easy to digest foods. Reminded Pt to get up slowly from bed or chair. Pt to follow up with her PCP in 1 week and discuss pulmonary follow up. Pt denied further questions and will be taken out via w/c by SPOOL HAULER to POV with Grandson and all belongings.
--- NOTE | 2025-07-10 13:38 | P.DS_ITS ---
History of Present Illness History of Present Illness Date Patient Seen: 06/08/25 Chief complaint: Weakness Narrative: Chief complaint: Weakness History of present illness: Past medical history of CHF, hypertension, chronic back pain, COPD, neuropathy and hypertension presents with complaint of generalized weakness. Per the patient's report, the patient lives at home with her son and grandson. 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 However the patient states that when she was home she was too weak to get to the bathroom safely and had a incontinence of stool. The patient states that her son and grandsons is not able to adequately care for her. The patient however denies any fever, chills, nausea, vomiting, diarrhea, chest pain or shortness of breath. In the emergency room, the patient was hemodynamically stable. Labs were done but were relatively benign viral respiratory panel as well as UA were negative for any sign of infection. CT of the abdomen however shows signs of colitis. Lactic came back normal though. Per CT scan colitis could be infectious versus ischemic. The case was discussed with hospitalist on-call Dr. Sanchez who recommended Hospital course: Patient reports she is not looking forward to going to fdc. She states it is typically cold and boring at nursing facilities. She notes that the last nursing facility she was at they wanted her ?to stay in bed?. She is hopeful she will only be at [facility] for a short period of time. She has no other complaints today Review of systems: No fever or chills rigors No chest pain shortness for breath No nausea vomiting diarrhea Physical examination: No acute distress No labored respiration Alert and cogent Assessment and plan: 1. Generalized weakness PT and OT recommended fdc for rehab. She is currently awaiting admission to [facility] with plan transferred there tomorrow. 2. Possible colitis Seen on abdominal pelvic CT on June 04. Findings showed colitis extending from the distal transverse colon to the mid descending colon. She was assessed by General surgery with no recommendations noted. She is asymptomatic presently. This was felt to be inflammatory or infectious, possibly ischemic in nature. She has not had any further loose stools, incontinence, or complaints of bloody stools. 3. 3.7 by 2.4 cm cavitary lesion, right upper lobe and new spiculated 1.4 cm left apical lobes suspicious for bronchogenic carcinoma Discussed with patient that she would need biopsy to determine whether this is in fact malignant in nature. Advised that her primary care should refer her appropriately for biopsy. 4. Possible alpha 1 antitrypsin deficiency Based on CT findings from June 03, it was noted she has extensive changes of pulmonary emphysema which is marked in the bases of the lungs suggesting possible alpha 1 antitrypsin deficiency. This could also be worked up on an outpatient basis with referral to pulmonology. 5. Chronic systolic CHF with last echocardiogram revealing an EF of 35-40% Currently appears euvolemic. Continues atorvastatin, carvedilol, clopidogrel. 6. Hypertension Blood pressures are stable. Remains on carvedilol. 7. COPD Stable on budesonide, albuterol nebulizers. 8. Neuropathy Continues gabapentin at bedtime Code status DNR DNI Prophylaxis On Lovenox Disposition Transfer to fdc Time based billin minutes were involved in management of this patient including [id number] evaluation physical examination management of patient's discharge medications Discharge Providers Provider Date of admission: 06/04/25 22:31 Discharge Date: 06/30/25 Primary care physician: Mir Bingham DO Consults: 06/04/25 17:58 Consult to MAINTENANCE CRAFTSMAN - Flavor Tank Tender Stat Comment: Flavor Tank Tender Consult needed for:: Unable to care for self No caregiver at home 06/04/25 22:29 Consult to Occupational Therapy Evaluate & Treat Comment: Physician Instructions: Evaluate and treat Consult to Physical Therapy Evaluate & Treat Comment: Physician Instructions: Evaluate and Treat 06/05/25 10:38 Consult to Pharmacy Routine Comment: Order per MAR on assessment this AM 06/05/25 16:05 Consult to Home Health Routine Comment: RN, PT, Aide, MAINTENANCE CRAFTSMAN Reason For Exam: Colitis, Weakness Discharge provider: Hung Baldwin MD Exam Vital Signs (past 8 hours): Fraction of Inspired Oxygen 21 SaO2/FiO2 Ratio 466 Oxygen Delivery Method Room Air Oxygen Flow Rate 0 Objective Labs 06/08/25 04:33 06/08/25 04:33 [facility] Medical History Anemia Incomplete bladder emptying ARF (acute renal failure) Cat bite of forearm Carotid artery disease Mobitz type 2 second degree AV block CHF (congestive heart failure) Ganglion cyst COPD (chronic obstructive pulmonary disease) Hypertension Depression Vision disorder Psoriasis (~1999) Acne Fibromyalgia Chronic back pain Measles Chicken pox Herpes (~1999) Fibroids Endometriosis History of urinary incontinence Irritable bowel syndrome Diverticular disease Colon polyps Ischemic colitis Surgical History Anesthesia History of tonsillectomy History of appendectomy History of bilateral oophorectomies H/O: hysterectomy Pacemaker Family History Father Diabetes mellitus Mother Diabetes mellitus Brother Diabetes mellitus Sister Stroke Social History marital status: number of children: 3 household members: family lives independently: Yes alcohol intake: current substance use type: does not use Discharge Plan Discharge Plan Patient Disposition: Home Provider Discharge Comment: Followup with Dr. Bingham within 1 week Follow-up needed: 1) 3.7 by 2.4 cm cavitary lesion, right upper lobe and new spiculated 1.4 cm left apical lobes suspicious for bronchogenic carcinoma - will need biopsy to determine if this is malignant. Could move to have PET CT first if she is interested. Possible alpha 1 antitrypsin deficiency 2) Based on CT findings from June 03, it was noted she has extensive changes of pulmonary emphysema which is marked in the bases of the lungs suggesting possible alpha 1 antitrypsin deficiency. This can be worked up on an outpatient basis with referral to pulmonology. Discharge orders & Medications Prescriptions: New hydrocodone-acetaminophen 5-325 mg Tablet 1 tab PO Q4H PRN (Reason: Pain, Moderate (4-6)) Qty: 15 0RF Continued cyproheptadine 4 mg tablet 4 mg PO BID Qty: 180 2RF atorvastatin 80 mg tablet 80 mg PO BEDTIME Qty: 90 3RF prednisone 20 mg tablet 40 mg PO DAILY Qty: 10 0RF bupropion HCl 150 mg tablet sustained-release 12 hr 150 mg PO DAILY Qty: 90 1RF gabapentin 300 mg capsule 300 mg PO ONCE PM Qty: 90 1RF fluticasone propion-salmeterol [Advair Diskus] 250-50 mcg/dose blister with device 1 inh inhalation BID Qty: 60 5RF diclofenac sodium [Voltaren Arthritis Pain] 1 % gel 2 g topical QID Qty: 100 5RF Rx Instructions: apply to single elbow, wrist or hand; for hand includes palm/fingers/back of hand triamterene-hydrochlorothiazid 37.5-25 mg tablet 0.5 tab PO DAILY Qty: 45 3RF mirabegron [Myrbetriq] 25 mg tablet extended release 24 hr 25 mg PO DAILY Qty: 90 3RF estradiol 0.01 % (0.1 mg/gram) cream 0.25 appful vaginal BEDTIME Qty: 42.5 3RF Rx Instructions: Apply small amount with finger to vaginal opening and labia at bedtime for 2 weeks, then twice weekly thereafter clopidogrel 75 mg tablet 75 mg PO DAILY Qty: 90 3RF carvedilol 3.125 mg tablet See Rx Instructions .ROUTE .COMPLEX Qty: 180 3RF Dose Instruction: TAKE ONE TABLET BY MOUTH TWICE DAILY WITH FOOD Rx Instructions: TAKE ONE TABLET BY MOUTH TWICE DAILY WITH FOOD albuterol sulfate 90 mcg/actuation aerosol powdr breath activated 2 inh inhalation Q6H PRN (Reason: shortness of breath) Qty: 1 8RF (DME) contour plus See Rx Instructions .Route .MEDSUPPLY Qty: 28 12RF Rx Instructions: incontinence ultimate bladder pads. medline albuterol sulfate 2.5 mg /3 mL (0.083 %) solution for nebulization 2.5 mg inhalation Q4-6H PRN (Reason: shortness of breath or wheezing) Qty: 75 8RF benzonatate 100 mg capsule 100 mg PO TID PRN (Reason: cough) Qty: 20 2RF fesoterodine [Toviaz] 4 mg tablet extended release 24 hr 4 mg PO DAILY Qty: 90 1RF fluticasone propion-salmeterol 250-50 mcg/dose blister with device 1 inh inhalation BID Qty: 60 0RF No Action sacubitril-valsartan [Entresto] 24-26 mg tablet 1 tab PO BID Follow up/Referrals: Mir Bingham DO [Primary Care Provider, Family Practice] Discharge Health Status Multidrug resistant organism: No MDRO Diet/Activity/Treatments Diet: Diet as Tolerated, Regular and Feed on demand Activity: As tolerated Oxygen: N/A Visit Report/Discharge Packet Instructions: DI for Muscle Weakness, DI for Prescription Opioid Use, DI for Colitis, Hydrocodone/Acetaminophen (By mouth) Stand Alone Forms: Patient Portal/API, Stroke Signs & Symptoms Discharge Data Primary Care Provider: Mir Bingham Attending Provider: Ramon Guardado Admquincy Date/Time: 06/04/25 22:31
== END 2025-06-08 13:15 | disposition home or self-care (01) ==
LOC: ED 22:30 → AC 22:31
PROVIDERS: Family Medicine; Internal Medicine; Surgery; Admitting Provider Internal Medicine; Emergency Provider Family Medicine; PCP Family Medicine; Referring Provider Family Medicine; Visit Provider Internal Medicine
DX: R53.1 Weakness (principal); K52.9 Noninfective gastroenteritis and colitis, unspecified; R10.10 Upper abdominal pain, unspecified; R15.9 Full incontinence of feces; R91.8 Other nonspecific abnormal finding of lung field; J44.9 Chronic obstructive pulmonary disease, unspecified; G89.29 Other chronic pain; M54.9 Dorsalgia, unspecified; G62.9 Polyneuropathy, unspecified; E87.6 Hypokalemia; I11.0 Hypertensive heart disease with heart failure; I50.9 Heart failure, unspecified; F17.210 Nicotine dependence, cigarettes, uncomplicated; Z66 Do not resuscitate; Z95.0 Presence of cardiac pacemaker
CPT/HCPCS: 36415; 70450; 71045; 74177; 80048; 80053; 81001; 82550; 83605; 83690; 84132; 84484; 85025; 87637; 93005; 93010; 94640; 94760; 94762; 96360; 96361; 96372; 97116; 97162; 97166; 97530; 99284; G0378; J1650; J7613; Q9967

== ENCOUNTER 2025-07-19 17:46 | Emergency (ER) | payer MEDICARE, SELFPAY ==
[2025-06-15 10:24] VITALS: BMI 22.4
[2025-07-19 17:52] VITALS: PULSE 67; RESP 30; O2SAT 98; BMI 20.3
[2025-07-19 17:57] VITALS: BP 176/77; PULSE 67; TEMP 36.4; BMI 20.3
--- NOTE | 2025-07-19 18:52 | EKG_ITS ---
[facility]
--- NOTE | 2025-07-19 18:52 | DI.RAD.S_ITS ---
PROCEDURE: XR CHEST 1V
[2025-07-19 19:04] LABS: Add Manual Diff / Slide Review NO; Hematocrit 38.9 % (36-46); Hemoglobin 12.3 g/dL (12.0-16.0); Lymphocytes Absolute Auto 2000 /uL (1100-4500); Mean Corpuscular HGB Conc 31.6 % (30-36); Mean Corpuscular Hemoglobin 25.1 PG (26-34); Mean Corpuscular Volume 79.5 fL (80-100); Platelet Count 262 X10^3/uL (150-400)
--- NOTE | 2025-07-19 19:09 | ED_ITS ---
HPI - SOB/Dyspnea
--- NOTE | 2025-07-19 19:09 | ED.SOB ---
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 She denies any other chest pain headache sore throat, fever chills, body aches. No other symptoms. Related Data Home Medications ?Medication ?Instructions ?Recorded ?Confirmed sacubitril 24 mg-valsartan 26 mg 1 tab PO BID 06/16/25 06/16/25 tablet (Entresto) Previous Rx's ?Medication ?Instructions ?Recorded diclofenac sodium 1 % topical gel 2 g topical QID #100 grams 03/17/22 (Voltaren Arthritis Pain) contour plus #28 ea 05/26/22 cyproheptadine 4 mg tablet 4 mg PO BID #180 tabs 08/11/24 atorvastatin 80 mg tablet 80 mg PO BEDTIME #90 tabs 10/02/24 albuterol sulfate 2.5 mg/3 mL 2.5 mg (3 mL) inhalation Q4-6H PRN 02/20/25 (0.083 %) solution for nebulization shortness of breath or wheezing #75 mL benzonatate 100 mg capsule 100 mg PO TID PRN cough #20 caps 02/20/25 fesoterodine 4 mg tablet,extended 4 mg PO DAILY #90 tabs 02/20/25 release 24 hr (Toviaz) prednisone 20 mg tablet 40 mg (2 x 20 mg) PO DAILY #10 tabs 04/07/25 bupropion HCl 150 mg tablet,12 hr 150 mg PO DAILY #90 tabs 04/08/25 sustained-release gabapentin 300 mg capsule 300 mg PO ONCE PM #90 caps 04/08/25 fluticasone 250 mcg-salmeterol 50 1 inh inhalation BID #60 ea 04/22/25 mcg/dose blistr powdr for inhalation albuterol sulfate 90 mcg/actuation 2 inh inhalation Q6H PRN shortness 05/15/25 breath activated powder inhaler of breath #1 ea carvedilol 3.125 mg tablet See Rx Instructions .Route 05/15/25 .COMPLEX #180 tabs clopidogrel 75 mg tablet 75 mg PO DAILY #90 tabs 05/15/25 estradiol 0.01% (0.1 mg/gram) 0.25 appful vaginal BEDTIME #42.5 05/15/25 vaginal cream grams mirabegron 25 mg tablet,extended 25 mg PO DAILY #90 tabs 05/15/25 release 24 hr (Myrbetriq) triamterene 37.5 0.5 tab PO DAILY #45 tabs 05/15/25 mg-hydrochlorothiazide 25 mg tablet fluticasone 250 mcg-salmeterol 50 1 inh inhalation BID #60 ea 05/19/25 mcg/dose blistr powdr for inhalation (Advair Diskus) hydrocodone 5 mg-acetaminophen 325 1 tab PO Q4H PRN Pain, Moderate 06/07/25 mg tablet (4-6) #15 tabs azithromycin 250 mg tablet See Rx Instructions PO .COMPLEX #6 07/19/25 (Zithromax Z-Jermaine) tabs prednisone 20 mg tablet 40 mg (2 x 20 mg) PO DAILY 5 days 07/19/25 #10 tabs Allergies Allergy/AdvReac Type Severity Reaction Status Date / Time latex (LATEX) Allergy Mild Verified 07/19/25 17:52 amoxicillin (AMOXICILLIN) Allergy Unknown Verified 07/19/25 17:52 levofloxacin (LEVOFLOXACIN) Allergy Unknown Verified 07/19/25 17:52 niacin Allergy Unknown Verified 07/19/25 17:52 sulfamethoxazole (From Allergy Unknown Verified 07/19/25 17:52 Bactrim) tobramycin Allergy Unknown Verified 06/16/25 15:09 trimethoprim (From Bactrim) Allergy Unknown Verified 07/19/25 17:52 varenicline (From Chantix) Allergy Unknown Verified 07/19/25 17:52 Review of Systems Review of Systems ROS Unobtainable: All systems reviewed & are unremarkable except as noted in HPI and below Patient History Medical History Anemia Incomplete bladder emptying ARF (acute renal failure) Cat bite of forearm Carotid artery disease Mobitz type 2 second degree AV block CHF (congestive heart failure) Ganglion cyst COPD (chronic obstructive pulmonary disease) Hypertension Depression Vision disorder Psoriasis (~1999) Acne Fibromyalgia Chronic back pain Measles Chicken pox Herpes (~1999) Fibroids Endometriosis History of urinary incontinence Irritable bowel syndrome Diverticular disease Colon polyps Ischemic colitis Surgical History Anesthesia History of tonsillectomy History of appendectomy History of bilateral oophorectomies H/O: hysterectomy Pacemaker Family History Father Diabetes mellitus Mother Diabetes mellitus Brother Diabetes mellitus Sister Stroke Social History marital status: number of children: 3 household members: family lives independently: Yes alcohol intake: current substance use type: does not use tobacco type: cigarettes alcohol intake frequency: holidays/special occasions only Exam Narrative Exam Narrative: General: Patient appears to be in no acute distress, acting appropriately Head: normocephalic, atraumatic, HEENT: Pupils equal round reactive, eyes tracking well, neck supple, no JVD Heart: regular rate and rhythm, no murmurs, rubs, or gallops heard Lungs: clear to auscultation, no adventitious sounds Abdomen: soft , nontender, nondistended, positive bowel sounds Neurological: no focal neurological signs, moving all extremities well, alert and oriented x3, Psych: good judgment ,good insight, mood is normal. Initial Vital Signs Initial Vital Signs: Vital Signs Pulse Rate 67 07/19/25 17:52 Respiratory Rate 30 H 07/19/25 17:52 Pulse Oximetry 98 07/19/25 17:52 Oxygen Delivery Method Room Air 07/19/25 17:52 Course Orders Ordered: Discontinued Medications Albuterol/Ipratropium (Albuterol/Ipratropium 3 Ml Ampul) 3 ml INH NOW ONE Stop: 07/19/25 19:23 Last Admin: 07/19/25 19:30 Dose: 3 ml Documented By: FRANCISCO Dexamethasone (Dexamethasone 10 Mg/Ml Vial) 10 mg IV NOW ONE Stop: 07/19/25 19:23 Last Admin: 07/19/25 20:11 Dose: 10 mg Documented By: JESSA Vital Signs Vital signs: Vital Signs - 8 hr 07/19/25 17:52 07/19/25 17:57 Temperature 97.6 F Pulse Rate 67 67 Respiratory Rate 30 H Blood Pressure 176/77 H Pulse Oximetry 98 Oxygen Delivery Method Room Air Room Air [facility] - SOB/Dyspnea Lab Data 07/19/25 17:45 07/19/25 17:45 Labs: Lab Results 07/19/25 07/19/25 Range/Units 17:45 19:15 WBC 7.1 (4.5-11.0) X10^3/uL RBC 4.89 (4.0-5.2) X10^6/uL Hgb 12.3 (12.0-16.0) g/dL Hct 38.9 (36-46) % MCV 79.5 L (80-100) fL MCH 25.1 L (26-34) PG MCHC 31.6 (30-36) % RDW 17.3 H (11.6-14.8) % Plt Count 262 (150-400) X10^3/uL Neut % (Auto) 57.2 (50-75) % Lymph % (Auto) 28.9 (25-40) % [place] % (Auto) 6.4 (3-14) % Eos % (Auto) 6.5 H (2-4) % Baso % (Auto) 1.0 (0-2) % Neut # (Auto) 4100 (9146-4858) /uL Lymph # (Auto) 2000 (5065-0756) /uL [place] # (Auto) 500 (0-900) /uL Eos # (Auto) 500 H (0-450) /uL Baso # (Auto) 100 (0-100) /uL Sodium 138 (137-145) mmol/L Potassium 4.7 (3.4-5.1) mmol/L Chloride 103 (98-107) mmol/L Carbon Dioxide 29 (22-32) mmol/L BUN 34 H (7-17) mg/dL Creatinine 1.25 H (0.52-1.04) mg/dL Estimated GFR 43 L (>60) mL/min BUN/Creatinine Ratio 27.2 H (6-22) Glucose 110 H (70-99) mg/dL Lactate 0.6 L (0.7-2.1) mmol/L Calcium 9.2 (8.4-10.2) mg/dL Total Bilirubin 0.4 (0.2-1.3) mg/dL AST 40 H (14-36) IU/L ALT 19 (<35) IU/L Alkaline Phosphatase 95 (38-126) U/L Troponin I < 0.012 (0.01-0.034) ng/mL NT-Pro-B Natriuret Pep 200 (<450) pg/mL Total Protein 7.2 (6.3-8.2) g/dL Albumin 4.2 (3.5-5.0) g/dL Globulin 3.0 (1.7-4.1) g/dL Albumin/Globulin Ratio 1.4 (1.0-2.8) Imaging Data Chest x-ray: Radiologist's Impression: COPD. No evidence acute pulmonary process. MDM Narrative Medical decision making narrative: 84-year-old female with a history of CHF, COPD, hypertension and new incidental finding of a mass in her left long presents with more likely an exacerbation of her COPD. Her symptoms dramatically improved after a DuoNeb nebulizer treatment and some dexamethasone. Patient was eager to be discharged. Advised to follow up for any worsening symptoms. Patient prescribe some prednisone as well as azithromycin in order to assist with this exacerbation. Discharge Plan Departure Patient Disposition: Home Clinical Impression: Acute exacerbation of chronic obstructive pulmonary disease Instructions: DI for Chronic Obstructive Pulmonary Disease Activity Restrictions/Additional Instructions: Take medications as prescribed. Follow up with PCP this week. Can follow up sooner here in the ED if symptoms do not improve. Prescriptions: New prednisone 20 mg tablet 40 mg PO DAILY 5 Days Qty: 10 0RF azithromycin [Zithromax Z-Jermaine] 250 mg tablet See Rx Instructions .ROUTE .COMPLEX Qty: 6 0RF Rx Instructions: For 250 mg dose pack: take 500 mg today (day 1), then 250 mg for 4 days (days 2-5) No Action cyproheptadine 4 mg tablet 4 mg PO BID Qty: 180 2RF atorvastatin 80 mg tablet 80 mg PO BEDTIME Qty: 90 3RF prednisone 20 mg tablet 40 mg PO DAILY Qty: 10 0RF bupropion HCl 150 mg tablet sustained-release 12 hr 150 mg PO DAILY Qty: 90 1RF gabapentin 300 mg capsule 300 mg PO ONCE PM Qty: 90 1RF fluticasone propion-salmeterol [Advair Diskus] 250-50 mcg/dose blister with device 1 inh inhalation BID Qty: 60 5RF diclofenac sodium [Voltaren Arthritis Pain] 1 % gel 2 g topical QID Qty: 100 5RF Rx Instructions: apply to single elbow, wrist or hand; for hand includes palm/fingers/back of hand triamterene-hydrochlorothiazid 37.5-25 mg tablet 0.5 tab PO DAILY Qty: 45 3RF mirabegron [Myrbetriq] 25 mg tablet extended release 24 hr 25 mg PO DAILY Qty: 90 3RF estradiol 0.01 % (0.1 mg/gram) cream 0.25 appful vaginal BEDTIME Qty: 42.5 3RF Rx Instructions: Apply small amount with finger to vaginal opening and labia at bedtime for 2 weeks, then twice weekly thereafter clopidogrel 75 mg tablet 75 mg PO DAILY Qty: 90 3RF carvedilol 3.125 mg tablet See Rx Instructions .ROUTE .COMPLEX Qty: 180 3RF Dose Instruction: TAKE ONE TABLET BY MOUTH TWICE DAILY WITH FOOD Rx Instructions: TAKE ONE TABLET BY MOUTH TWICE DAILY WITH FOOD albuterol sulfate 90 mcg/actuation aerosol powdr breath activated 2 inh inhalation Q6H PRN (Reason: shortness of breath) Qty: 1 8RF (DME) contour plus See Rx Instructions .Route .MEDSUPPLY Qty: 28 12RF Rx Instructions: incontinence ultimate bladder pads. medline albuterol sulfate 2.5 mg /3 mL (0.083 %) solution for nebulization 2.5 mg inhalation Q4-6H PRN (Reason: shortness of breath or wheezing) Qty: 75 8RF benzonatate 100 mg capsule 100 mg PO TID PRN (Reason: cough) Qty: 20 2RF fesoterodine [Toviaz] 4 mg tablet extended release 24 hr 4 mg PO DAILY Qty: 90 1RF sacubitril-valsartan [Entresto] 24-26 mg tablet 1 tab PO BID fluticasone propion-salmeterol 250-50 mcg/dose blister with device 1 inh inhalation BID Qty: 60 0RF hydrocodone-acetaminophen 5-325 mg Tablet 1 tab PO Q4H PRN (Reason: Pain, Moderate (4-6)) Qty: 15 0RF Referrals: Mir Bingham, [Primary Care Provider, Family Practice] Stand Alone Forms: Patient Portal/API
[2025-07-19 19:11] LABS: Alanine Aminotransferase 19 IU/L (<35); Albumin 4.2 g/dL (3.5-5.0); Albumin Globulin Ratio 1.4 (1.0-2.8); Alkaline Phosphatase 95 U/L (38-126); Blood Urea Nitrogen 34 mg/dL (7-17); Calcium 9.2 mg/dL (8.4-10.2); Carbon Dioxide 29 mmol/L (22-32); Chloride 103 mmol/L (98-107); Estimated Glomerular Filt Rate 43 mL/min (>60); Globulin 3.0 g/dL (1.7-4.1); Glucose 110 mg/dL (70-99); HEMOLYSIS 20 (0-50); Potassium 4.7 mmol/L (3.4-5.1); Sodium 138 mmol/L (137-145); Total Protein 7.2 g/dL (6.3-8.2)
[2025-07-19 19:22] LABS: NT-proBNP (BNP-Adult 18+) 200 pg/mL (<450); Troponin I < 0.012 ng/mL (0.01-0.034)
[2025-07-19 19:30] LABS: Lactate (Lactic Acid) 0.6 mmol/L (0.7-2.1)
[2025-07-19] MEDS: ALBUTEROL/IPRATROPIUM 3 ML AMPUL INH (19:30)
[2025-07-19 19:34] VITALS: PULSE 67; RESP 18; O2SAT 97
--- NOTE | 2025-07-19 21:12 | PC.NURSE ---
Call to grandson, Ruslan, and son, no answer, left a message, talked with daughter Effie, states she lives in [facility] and has had some alcoholic drinks so she shouldnt be driving. Will call the other daughter to see if she is available to pick her up.
== END 2025-07-19 22:10 | disposition home or self-care (01) ==
PROVIDERS: Emergency Provider Family Medicine; PCP Family Medicine
DX: J44.1 Chronic obstructive pulmonary disease with (acute) exacerbation (principal)
CPT/HCPCS: 36415; 71045; 80053; 83605; 83880; 84484; 85025; 93005; 94640; 96374; 99284; J1100

== ENCOUNTER 2025-08-23 14:08 | Emergency (ER) | payer MEDICARE, SELFPAY ==
[2025-06-15 10:24] VITALS: BMI 22.4
[2025-08-23] VITALS (13 sets, daily range): BP systolic 110–146; BP diastolic 53–67; PULSE 80–95; RESP 15–23; TEMP 36.6–37; O2SAT 92–99; BMI 20.2
--- NOTE | 2025-08-23 14:13 | EKG_ITS ---
[address] [address] Test Date: 2025-08-23 Pat Name: Apple Juarez Department: [facility] Room: Gender: Female Director Post: : 1940 Requested By: Order Number: [id number] Reading MD: Thanh Carpenter MD Measurements Intervals [place] Rate: 81 P: 74 [place]: 170 QRS: 31 QRSD: 144 T: 184 QT: 412 QTc: 478 Interpretive Statements Normal sinus rhythm Left bundle branch block NO SIGNIFICANT CHANGE FROM PRIOR TRACING Electronically Signed On 08-23-2025 21:38:38 PST by Thanh Carpenter MD
--- NOTE | 2025-08-23 14:14 | ED.SOB ---
HPI - SOB/Dyspnea General Chief Complaint: Shortness of Breath/Dyspnea Stated Complaint: COPD Time Seen by Provider: 08/23/25 14:13 History of Present Illness HPI Narrative: Patient is an 85-year-old female history of COPD, hypertension, bronchogenic carcinoma, presenting to day with increasing shortness of breath. She has a history of COPD not on home oxygen. She reports that [facility] was [facility] started having trouble and could not quite get to her nebulizer. EMS responded saying she was 88% on room air. She received DuoNeb treatment and dexamethasone 10 mg per EMS reports that she is feeling better. No significant chest pain or fever Related Data Home Medications ?Medication ?Instructions ?Recorded ?Confirmed sacubitril 24 mg-valsartan 26 mg 1 tab PO BID 06/16/25 08/03/25 tablet (Entresto) Previous Rx's ?Medication ?Instructions ?Recorded diclofenac sodium 1 % topical gel 2 g topical QID #100 grams 03/17/22 (Voltaren Arthritis Pain) contour plus #28 ea 05/26/22 cyproheptadine 4 mg tablet 4 mg PO BID #180 tabs 08/11/24 atorvastatin 80 mg tablet 80 mg PO BEDTIME #90 tabs 10/02/24 albuterol sulfate 2.5 mg/3 mL 2.5 mg (3 mL) inhalation Q4-6H PRN 02/20/25 (0.083 %) solution for nebulization shortness of breath or wheezing #75 mL benzonatate 100 mg capsule 100 mg PO TID PRN cough #20 caps 02/20/25 fesoterodine 4 mg tablet,extended 4 mg PO DAILY #90 tabs 02/20/25 release 24 hr (Toviaz) prednisone 20 mg tablet 40 mg (2 x 20 mg) PO DAILY #10 tabs 04/07/25 bupropion HCl 150 mg tablet,12 hr 150 mg PO DAILY #90 tabs 04/08/25 sustained-release gabapentin 300 mg capsule 300 mg PO ONCE PM #90 caps 04/08/25 albuterol sulfate 90 mcg/actuation 2 inh inhalation Q6H PRN shortness 05/15/25 breath activated powder inhaler of breath #1 ea clopidogrel 75 mg tablet 75 mg PO DAILY #90 tabs 05/15/25 estradiol 0.01% (0.1 mg/gram) 0.25 appful vaginal BEDTIME #42.5 05/15/25 vaginal cream grams mirabegron 25 mg tablet,extended 25 mg PO DAILY #90 tabs 05/15/25 release 24 hr (Myrbetriq) hydrocodone 5 mg-acetaminophen 325 1 tab PO Q4H PRN Pain, Moderate 06/07/25 mg tablet (4-6) #15 tabs azithromycin 250 mg tablet See Rx Instructions PO .COMPLEX #6 07/19/25 (Zithromax Z-Jermaine) tabs carvedilol 3.125 mg tablet See Rx Instructions .Route 07/20/25 .COMPLEX #180 tabs prednisone 5 mg tablet 5 mg PO DAILY #30 tabs 07/20/25 fluticasone fur. 200 mcg-umeclid 1 inh inhalation Q24H #60 ea 07/21/25 62.5 mcg-vilant 25 mcg inhalat.powder (Trelegy Ellipta) prednisone 20 mg tablet 20 mg PO DAILY #5 tabs 08/23/25 Allergies Allergy/AdvReac Type Severity Reaction Status Date / Time latex (LATEX) Allergy Mild Verified 08/23/25 14:14 amoxicillin (AMOXICILLIN) Allergy Unknown Verified 08/23/25 14:14 levofloxacin (LEVOFLOXACIN) Allergy Unknown Verified 08/23/25 14:14 niacin Allergy Unknown Verified 08/23/25 14:14 sulfamethoxazole (From Allergy Unknown Verified 08/23/25 14:14 Bactrim) tobramycin Allergy Unknown Verified 08/23/25 14:14 trimethoprim (From Bactrim) Allergy Unknown Verified 08/23/25 14:14 varenicline (From Chantix) Allergy Unknown Verified 08/23/25 14:14 Patient History Medical History Pulmonary lesion Centrilobular emphysema Hypotension Bronchogenic carcinoma Anemia Incomplete bladder emptying ARF (acute renal failure) Cat bite of forearm Carotid artery disease Mobitz type 2 second degree AV block CHF (congestive heart failure) Ganglion cyst COPD (chronic obstructive pulmonary disease) Hypertension Depression Vision disorder Psoriasis (~1999) Acne Fibromyalgia Chronic back pain Measles Chicken pox Herpes (~1999) Fibroids Endometriosis History of urinary incontinence Irritable bowel syndrome Diverticular disease Colon polyps Ischemic colitis Surgical History Anesthesia History of tonsillectomy History of appendectomy History of bilateral oophorectomies H/O: hysterectomy Pacemaker Family History Father Diabetes mellitus Mother Diabetes mellitus Brother Diabetes mellitus Sister Stroke Social History marital status: number of children: 3 household members: family lives independently: Yes Smoking Status: Current some day smoker alcohol intake: current substance use type: does not use tobacco type: cigarettes alcohol intake frequency: holidays/special occasions only Exam Initial Vital Signs Initial Vital Signs: Vital Signs Pulse Rate 83 08/23/25 14:13 Blood Pressure 118/53 L 08/23/25 14:13 Pulse Oximetry 99 08/23/25 14:13 GENERAL: Alert pleasant 85-year-old female and in no acute distress. HEENT: Head atraumatic,EOMI, pupils reactive, face symmetric, moist mucous membranes CARDIOVASCULAR: Regular rate and rhythm without murmurs, rubs or gallops. RESPIRATORY: No significant tachypnea no wheezes rales or rhonchi ABDOMEN: Soft, nontender. Normoactive bowel sounds all 4 quadrants. No guarding or rebound. EXTREMITIES: Normal range of motion, no clubbing or edema. Neurovascularly intact NEUROLOGICAL: Alert and oriented x4.Normal gait and speech. Cranial nerves II through XII grossly intact. SKIN: Warm, dry, no laceration, no petechiae, no rashes or lesions. Course Orders Ordered: ED Orders 08/23/25 14:13 XR chest 1V Stat EKG-12 Lead Stat 08/23/25 14:20 Complete Blood Count AUTO DIFF Stat Comprehensive Metabolic Panel Stat Lipase Stat Magnesium Stat NT-proBNP (BNP-Adult 18+) Stat Troponin I Stat 08/23/25 16:15 Troponin I Stat 08/23/25 16:20 EKG-12 Lead Stat 08/23/25 18:30 Trop I [Troponin I] Stat EKG-12 Lead Stat Vital Signs Vital signs: Vital Signs - 8 hr 08/23/25 14:13 08/23/25 14:13 08/23/25 14:15 Temperature 97.9 F Pulse Rate 83 84 Respiratory Rate 15 Blood Pressure 118/53 L 118/53 L Pulse Oximetry 99 98 Oxygen Delivery Method Room Air 08/23/25 14:18 08/23/25 14:18 08/23/25 14:30 Temperature Pulse Rate 84 82 Respiratory Rate 17 15 Blood Pressure 110/55 L Pulse Oximetry 98 94 Oxygen Delivery Method 08/23/25 14:30 08/23/25 15:00 08/23/25 15:00 Temperature Pulse Rate 82 Respiratory Rate Blood Pressure 146/60 H 117/67 Pulse Oximetry 95 Oxygen Delivery Method 08/23/25 15:30 08/23/25 15:30 08/23/25 15:51 Temperature 98.6 F Pulse Rate 80 Respiratory Rate 21 Blood Pressure 146/66 H Pulse Oximetry 94 Oxygen Delivery Method 08/23/25 16:00 08/23/25 16:00 08/23/25 16:30 Temperature Pulse Rate 82 Respiratory Rate 17 Blood Pressure 119/59 L 132/61 Pulse Oximetry 93 Oxygen Delivery Method 08/23/25 16:30 08/23/25 17:00 08/23/25 17:30 Temperature Pulse Rate 82 84 86 Respiratory Rate 19 17 22 Blood Pressure 128/60 138/65 Pulse Oximetry 94 93 92 Oxygen Delivery Method 08/23/25 18:00 Temperature Pulse Rate 92 H Respiratory Rate 23 Blood Pressure Pulse Oximetry 93 Oxygen Delivery Method Room Air MDM - SOB/Dyspnea Lab Data 08/23/25 14:20 08/23/25 14:20 Labs: Lab Results 08/23/25 08/23/25 08/23/25 Range/Units 14:20 14:21 15:12 WBC 13.7 H (4.5-11.0) X10^3/uL RBC 4.63 (4.0-5.2) X10^6/uL Hgb 11.4 L (12.0-16.0) g/dL Hct 35.5 L (36-46) % MCV 76.7 L (80-100) fL MCH 24.6 L (26-34) PG MCHC 32.0 (30-36) % RDW 18.7 H (11.6-14.8) % Plt Count 259 (150-400) X10^3/uL Neut % (Auto) 75.9 H (50-75) % Lymph % (Auto) 15.3 L (25-40) % [place] % (Auto) 7.2 (3-14) % Eos % (Auto) 1.0 L (2-4) % Baso % (Auto) 0.6 (0-2) % Neut # (Auto) 46317 H (5043-8916) /uL Lymph # (Auto) 2100 (3489-0225) /uL [place] # (Auto) 1000 H (0-900) /uL Eos # (Auto) 100 (0-450) /uL Baso # (Auto) 100 (0-100) /uL Sodium 139 (137-145) mmol/L Potassium 3.6 (3.4-5.1) mmol/L Chloride 105 (98-107) mmol/L Carbon Dioxide 27 (22-32) mmol/L BUN 32 H (7-17) mg/dL Creatinine 1.31 H (0.52-1.04) mg/dL Estimated GFR 40 L (>60) mL/min BUN/Creatinine Ratio 24.4 H (6-22) Glucose 39 L* (70-99) mg/dL POC Whole Bld Glucose 67 L 167 H D (70-99) mg/dL Calcium 9.4 (8.4-10.2) mg/dL Magnesium 2.2 (1.6-2.3) mg/dL Total Bilirubin 0.3 (0.2-1.3) mg/dL AST 28 (14-36) IU/L ALT 19 (<35) IU/L Alkaline Phosphatase 87 (38-126) U/L Troponin I 0.016 (0.01-0.034) ng/mL NT-Pro-B Natriuret Pep 197 (<450) pg/mL Total Protein 7.0 (6.3-8.2) g/dL Albumin 4.1 (3.5-5.0) g/dL Globulin 2.9 (1.7-4.1) g/dL Albumin/Globulin Ratio 1.4 (1.0-2.8) Lipase 174 (23-300) U/L 08/23/25 08/23/25 08/23/25 Range/Units 16:15 16:29 17:10 WBC (4.5-11.0) X10^3/uL RBC (4.0-5.2) X10^6/uL Hgb (12.0-16.0) g/dL Hct (36-46) % MCV (80-100) fL MCH (26-34) PG MCHC (30-36) % RDW (11.6-14.8) % Plt Count (150-400) X10^3/uL Neut % (Auto) (50-75) % Lymph % (Auto) (25-40) % [place] % (Auto) (3-14) % Eos % (Auto) (2-4) % Baso % (Auto) (0-2) % Neut # (Auto) (7905-1079) /uL Lymph # (Auto) (8576-3973) /uL [place] # (Auto) (0-900) /uL Eos # (Auto) (0-450) /uL Baso # (Auto) (0-100) /uL Sodium (137-145) mmol/L Potassium (3.4-5.1) mmol/L Chloride (98-107) mmol/L Carbon Dioxide (22-32) mmol/L BUN (7-17) mg/dL Creatinine (0.52-1.04) mg/dL Estimated GFR (>60) mL/min BUN/Creatinine Ratio (6-22) Glucose (70-99) mg/dL POC Whole Bld Glucose 102 H 121 H (70-99) mg/dL Calcium (8.4-10.2) mg/dL Magnesium (1.6-2.3) mg/dL Total Bilirubin (0.2-1.3) mg/dL AST (14-36) IU/L ALT (<35) IU/L Alkaline Phosphatase (38-126) U/L Troponin I 0.014 (0.01-0.034) ng/mL NT-Pro-B Natriuret Pep (<450) pg/mL Total Protein (6.3-8.2) g/dL Albumin (3.5-5.0) g/dL Globulin (1.7-4.1) g/dL Albumin/Globulin Ratio (1.0-2.8) Lipase (23-300) U/L 12/14/25 Range/Units 17:35 WBC (4.5-11.0) X10^3/uL RBC (4.0-5.2) X10^6/uL Hgb (12.0-16.0) g/dL Hct (36-46) % MCV (80-100) fL MCH (26-34) PG MCHC (30-36) % RDW (11.6-14.8) % Plt Count (150-400) X10^3/uL Neut % (Auto) (50-75) % Lymph % (Auto) (25-40) % [place] % (Auto) (3-14) % Eos % (Auto) (2-4) % Baso % (Auto) (0-2) % Neut # (Auto) (4121-4396) /uL Lymph # (Auto) (8030-2023) /uL [place] # (Auto) (0-900) /uL Eos # (Auto) (0-450) /uL Baso # (Auto) (0-100) /uL Sodium (137-145) mmol/L Potassium (3.4-5.1) mmol/L Chloride (98-107) mmol/L Carbon Dioxide (22-32) mmol/L BUN (7-17) mg/dL Creatinine (0.52-1.04) mg/dL Estimated GFR (>60) mL/min BUN/Creatinine Ratio (6-22) Glucose (70-99) mg/dL POC Whole Bld Glucose 132 H (70-99) mg/dL Calcium (8.4-10.2) mg/dL Magnesium (1.6-2.3) mg/dL Total Bilirubin (0.2-1.3) mg/dL AST (14-36) IU/L ALT (<35) IU/L Alkaline Phosphatase (38-126) U/L Troponin I (0.01-0.034) ng/mL NT-Pro-B Natriuret Pep (<450) pg/mL Total Protein (6.3-8.2) g/dL Albumin (3.5-5.0) g/dL Globulin (1.7-4.1) g/dL Albumin/Globulin Ratio (1.0-2.8) Lipase (23-300) U/L Point of Care Testing Glucose POC 167 Imaging Data Chest x-ray: Radiologist's Impression: PROCEDURE: XR CHEST 1V INDICATIONS: cough sob TECHNIQUE: One view of the chest was acquired. COMPARISON: [facility], , XR CHEST 1V, 07/19/2025, 19:02. FINDINGS: Surgical changes and devices: Dual lead pacemaker device with tips overlying the right atrial appendage and right ventricle. Lungs and pleura: Emphysematous changes bilaterally with right greater than left biapical scarring unchanged. No acute consolidation. No pleural effusions or pneumothorax. Mediastinum: Mediastinal contours appear normal. Heart size is normal. Bones and chest wall: No suspicious bony lesions. Overlying soft tissues appear unremarkable. IMPRESSION: No acute cardiopulmonary abnormality is seen. Dictated by: Crescencio Danielle M.D. on 08/23/2025 at 13:41 ECG Data Attestation: I personally reviewed and interpreted this ECG as follows: Interpretation: Sinus rhythm rate 85 VT interval 170 QRS 152 QTC 509 left bundle-branch block noted significant ST depression lead 2 which is more pronounced Repeat EKGs shows persistent ST changes with a left bundle-branch block no significant Sgarbossa criteria 3rd EKGs MDM Narrative Medical decision making narrative: MDM CC: Shortness of Complicating co-morbidities: COPD hyperlipidemia, Mobitz type 2 av block, congestive heart failure Data collected from: Patient Medical records reviewed: [ ] Differential considered: [ ] Exam documented above, pertinent findings include: Patient is a easily wheezing but clear breath sounds no respiratory distress or tachypnea no evidence of peripheral edema Lab Test results independently reviewed as above. Pertinent findings: CBC mild leukocytosis 13.7 no significant anemia no significant left shift CMP shows hyperglycemia glucose of 39, no significant electrolyte abnormalities creatinine stable 1.31 previously 1.25 Troponin0.016-->0.014 BNP 190 Bilirubin liver enzymes and lipase within normal limits Independently reviewed EKG as above Left bundle-branch block noted sinus rhythm more pronounced ST depression 3rd EKGs overall appears similar she has constant ST depression in lead 2 no Sgarbossa criteria she has got some ST depression in AVF Imaging studies independently reviewed: Chest x-ray no acute cardiopulmonary process Consultations: [ ] Treatments: All medications were given prior to arrival including dexamethasone 10 mg and albuterol not require any further treatments in the ED. She was given food for her hypoglycemia Re-evaluations: Glucose is coming up she is eating drinking no more wheezing overall appears well Discussion: Patient is a 85-year-old female history of congestive heart failure COPD presenting today with increasing shortness of breath. She has appears to have a COPD exacerbation which improved with EMS with 1 albuterol nebulizer treatment also received dexamethasone. She is found to be hypoglycemic but lately because she has not eat and she has been given lots of food here she is awake alert oriented overall appears well and nontoxic. EKGs does show little bit different but she is not having chest pain and troponins are actually trending down and are still negative. Met this time I think appropriate to treat her for COPD exacerbation Discharge Plan Departure Patient Disposition: Home Clinical Impression: COPD exacerbation Instructions: Chronic Obstructive Pulmonary Disease Activity Restrictions/Additional Instructions: *You have been diagnosed with COPD exacerbation *What to do: At this time blood work is overall reassuring, x-ray does not show any evidence of pneumonia *Continue to take medications as directed Prednisone 20 mg once a day for 5 days and then go back to your normal 5 mg dose *Follow up with your primary care provider in 2-3 days or call [phone] *Return to ER if you should have increasing chest pain shortness of breath weakness or any new, worsening or concerning symptoms Prescriptions: New prednisone 20 mg tablet 20 mg PO DAILY Qty: 5 0RF No Action cyproheptadine 4 mg tablet 4 mg PO BID Qty: 180 2RF atorvastatin 80 mg tablet 80 mg PO BEDTIME Qty: 90 3RF prednisone 20 mg tablet 40 mg PO DAILY Qty: 10 0RF bupropion HCl 150 mg tablet sustained-release 12 hr 150 mg PO DAILY Qty: 90 1RF gabapentin 300 mg capsule 300 mg PO ONCE PM Qty: 90 1RF diclofenac sodium [Voltaren Arthritis Pain] 1 % gel 2 g topical QID Qty: 100 5RF Rx Instructions: apply to single elbow, wrist or hand; for hand includes palm/fingers/back of hand mirabegron [Myrbetriq] 25 mg tablet extended release 24 hr 25 mg PO DAILY Qty: 90 3RF estradiol 0.01 % (0.1 mg/gram) cream 0.25 appful vaginal BEDTIME Qty: 42.5 3RF Rx Instructions: Apply small amount with finger to vaginal opening and labia at bedtime for 2 weeks, then twice weekly thereafter clopidogrel 75 mg tablet 75 mg PO DAILY Qty: 90 3RF albuterol sulfate 90 mcg/actuation aerosol powdr breath activated 2 inh inhalation Q6H PRN (Reason: shortness of breath) Qty: 1 8RF (DME) contour plus See Rx Instructions .Route .MEDSUPPLY Qty: 28 12RF Rx Instructions: incontinence ultimate bladder pads. medline albuterol sulfate 2.5 mg /3 mL (0.083 %) solution for nebulization 2.5 mg inhalation Q4-6H PRN (Reason: shortness of breath or wheezing) Qty: 75 8RF benzonatate 100 mg capsule 100 mg PO TID PRN (Reason: cough) Qty: 20 2RF fesoterodine [Toviaz] 4 mg tablet extended release 24 hr 4 mg PO DAILY Qty: 90 1RF sacubitril-valsartan [Entresto] 24-26 mg tablet 1 tab PO BID carvedilol 3.125 mg tablet See Rx Instructions .ROUTE .COMPLEX Qty: 180 3RF Dose Instruction: TAKE ONE TABLET BY MOUTH TWICE DAILY WITH FOOD Rx Instructions: TAKE ONE TABLET BY MOUTH TWICE DAILY WITH FOOD prednisone 5 mg tablet 5 mg PO DAILY Qty: 30 3RF azithromycin [Zithromax Z-Jermaine] 250 mg tablet See Rx Instructions .ROUTE .COMPLEX Qty: 6 0RF Rx Instructions: For 250 mg dose pack: take 500 mg today (day 1), then 250 mg for 4 days (days 2-5) hydrocodone-acetaminophen 5-325 mg Tablet 1 tab PO Q4H PRN (Reason: Pain, Moderate (4-6)) Qty: 15 0RF Trelegy Ellipta 200-62.5-25 mcg blister with device 1 inh inhalation Q24H Qty: 60 3RF Referrals: Mir Bingham DO [Primary Care Provider, Family Practice] Stand Alone Forms: Patient Portal/API
[2025-08-23 14:31] LABS: Add Manual Diff / Slide Review NO; Hematocrit 35.5 % (36-46); Hemoglobin 11.4 g/dL (12.0-16.0); Lymphocytes Absolute Auto 2100 /uL (1100-4500); Mean Corpuscular HGB Conc 32.0 % (30-36); Mean Corpuscular Hemoglobin 24.6 PG (26-34); Mean Corpuscular Volume 76.7 fL (80-100); Platelet Count 259 X10^3/uL (150-400)
[2025-08-23 14:42] LABS: Alanine Aminotransferase 19 IU/L (<35); Albumin 4.1 g/dL (3.5-5.0); Albumin Globulin Ratio 1.4 (1.0-2.8); Alkaline Phosphatase 87 U/L (38-126); Blood Urea Nitrogen 32 mg/dL (7-17); Calcium 9.4 mg/dL (8.4-10.2); Carbon Dioxide 27 mmol/L (22-32); Chloride 105 mmol/L (98-107); Estimated Glomerular Filt Rate 40 mL/min (>60); Globulin 2.9 g/dL (1.7-4.1); HEMOLYSIS < 15 (0-50); Lipase 174 U/L (23-300); Magnesium 2.2 mg/dL (1.6-2.3); Potassium 3.6 mmol/L (3.4-5.1); Sodium 139 mmol/L (137-145); Total Protein 7.0 g/dL (6.3-8.2)
[2025-08-23 14:46] LABS: Glucose 39 mg/dL (70-99)
--- NOTE | 2025-08-23 14:50 | PC.NURSE ---
pt provided snack: turkey sandwich with cheese and juice to address low blood sugar
[2025-08-23 14:54] LABS: NT-proBNP (BNP-Adult 18+) 197 pg/mL (<450); Troponin I 0.016 ng/mL (0.01-0.034)
--- NOTE | 2025-08-23 15:32 | PC.NURSE ---
pt's BG 167 after food provided at 1515 today
--- NOTE | 2025-08-23 16:30 | PC.NURSE ---
Pt was responsive, and alert. Recheck blood sugar was 102.
--- NOTE | 2025-08-23 16:33 | EKG_ITS ---
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
[2025-08-23 16:55] LABS: Troponin I 0.014 ng/mL (0.01-0.034)
--- NOTE | 2025-08-23 18:30 | EKG_ITS ---
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
--- NOTE | 2025-08-23 18:44 | EKG_ITS ---
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
--- NOTE | 2025-08-23 19:02 | PC.NURSE ---
contacted pt son for pick pulling machine tender from ED, son on the way from [facility] [place] ETA 10min (1909)
== END 2025-08-23 19:12 | disposition home or self-care (01) ==
PROVIDERS: Emergency Provider Emergency Medicine; PCP Family Medicine
DX: J44.1 Chronic obstructive pulmonary disease with (acute) exacerbation (principal); R05.9 Cough, unspecified; I10 Essential (primary) hypertension
CPT/HCPCS: 36415; 71045; 80053; 82962; 83690; 83735; 83880; 84484; 85025; 93005; 99283; 99284

== ENCOUNTER → 2025-09-09 12:41 | Outpatient (CLI) | payer MEDICARE, MEDICAID, SELFPAY ==
[2025-06-15 10:24] VITALS: BMI 22.4
--- NOTE | 2025-09-09 12:43 | DI.ECHO.S_ITS ---
[facility] : : [address] : : [place] : : [id number] : : Phone: [phone] Echocardiogram Report + + :Name: WESLEY MOTT Study Date: 09/09/2025 Height: 63 in : :[facility]: Weight: 116 lb: : Gender: Female BSA: 1.5 m2 : :: 1940 Age: 85 yrs BP: 94/59 mmHg: :Reason For Study: HEART FAILURE : :Ordering Physician: UZMA, : :FRANCIA Performed By: Fletcher Gavin : :Referring: FRANCIA GUSMAN : + + Interpretation Summary TDS - VERY POOR WINDOWS, LUNG INTERFERENCE. NO APICALS VISUALIZED. The left ventricular cavity is small. The left ventricular ejection fraction is normal. The ejection fraction is estimated to be 55-60%. Previous LV ejection fraction 30 to 35%. Septal motion is consistent with conduction abnormality. Left ventricular systolic function has significantly improved compared to the previous exam. There is a pacemaker lead in the right ventricle. The right ventricle is grossly normal size. The right ventricular systolic function is normal. Although valves were not well-visualized however no significant gross abnormality seen. The IVC is of normal diameter and collapses greater than 50% with a sniff. This suggests a low right atrial pressure of 3 mm Hg. There is mild luminal irregularity and echogenicity in the abdominal aorta, suggestive of aortic atherosclerotic disease. Procedure: A two-dimensional transthoracic echocardiogram with color flow and Doppler was performed. The study quality was technically difficult. The study quality was technically limited. Comparison is made with the echocardiogram of 03/29/2022. Likely a sensed and ventricular paced rhythm. Left Ventricle: The left ventricular cavity is small. Proximal septal thickening is noted. The left ventricular ejection fraction is normal. Left ventricular systolic function has significantly improved compared to the previous exam. The ejection fraction is estimated to be 55-60%. Septal motion is consistent with conduction abnormality. Based on limited images, previously mention inferior wall, apical hypokinesis improved. Right Ventricle: The right ventricle is not well visualized. There is a pacemaker lead in the right ventricle. The right ventricle is grossly normal size. The right ventricular systolic function is normal. Atria: The left atrium is not well visualized. Right atrium not well visualized. There is no Doppler evidence for an interatrial shunt. Mitral Valve: The mitral valve is not well visualized. There is mild mitral annular calcification. There is trace mitral regurgitation. Aortic Valve: The aortic valve is not well visualized. There is no hemodynamically significant valvular aortic stenosis. No aortic regurgitation is present. Tricuspid Valve: The tricuspid valve is not well visualized. There is trace tricuspid regurgitation. Pulmonary artery pressures cannot be estimated because of the lack of a measurable TR jet velocity. Pulmonic Valve: The pulmonic valve is not well visualized. Great Vessels: The aortic root is normal size. The ascending aorta could not be visualized. There is mild luminal irregularity and echogenicity in the abdominal aorta, suggestive of aortic atherosclerotic disease. The pulmonary is not well visualized. The IVC is of normal diameter and collapses greater than 50% with a sniff. This suggests a low right atrial pressure of 3 mm Hg. MMode/2D Measurements & Calculations LVIDd: 3.4 cm LVOT diam: 1.9 cm LVIDs: 2.3 cm Ao root diam: 3.3 cm FS: 31.5 % EPSS: 0.69 cm IVSd: 1.4 cm LVPWd: 0.96 cm LV kearney. diameter/BSA (cm/m^2): 2.2 LV sys. diameter/BSA (cm/m^2): 1.5 IVC diam: 1.1 cm Doppler Measurements & Calculations TR max norman: 197.8 cm/sec TR max P.6 mmHg PA V2 max: 97.1 cm/sec PA V2 mean: 71.5 cm/sec PA mean P.2 mmHg PA pr(Accel): 53.3 mmHg [place] Physician:04:00 PM
== END ==
PROVIDERS: PCP Family Medicine; Referring Provider Internal Medicine Cardiovascular Disease; Visit Provider Internal Medicine Cardiovascular Disease
DX: I34.81 Nonrheumatic mitral (valve) annulus calcification (principal); I50.22 Chronic systolic (congestive) heart failure
CPT/HCPCS: 36415; 80048; 93306

== ENCOUNTER → 2025-09-09 12:43 | Outpatient (CLI) | payer MEDICARE, MEDICAID, SELFPAY ==
[2025-06-15 10:24] VITALS: BMI 22.4
[2025-09-09 13:39] LABS: Blood Urea Nitrogen 37 mg/dL (7-17); Calcium 9.1 mg/dL (8.4-10.2); Carbon Dioxide 25 mmol/L (22-32); Chloride 106 mmol/L (98-107); Estimated Glomerular Filt Rate 43 mL/min (>60); Glucose 90 mg/dL (70-99); HEMOLYSIS < 15 (0-50); Potassium 4.1 mmol/L (3.4-5.1); Sodium 139 mmol/L (137-145)
== END ==
PROVIDERS: PCP Family Medicine; Referring Provider Nurse Practitioner Family; Visit Provider Nurse Practitioner Family
DX: I25.10 Atherosclerotic heart disease of native coronary artery without angina pectoris (principal); I42.8 Other cardiomyopathies; N17.9 Acute kidney failure, unspecified
CPT/HCPCS: 36415; 80048